=== PATIENT | male | born 1950 | race Caucasian/White ===

== ENCOUNTER 2025-06-14 12:24 | Outpatient (CLI) | payer MEDICARE, SELFPAY ==
[2025-06-14 12:55] LABS: Hematocrit 29.7 % (37-53); Hemoglobin 9.40 g/dL (11.27-16.99); Mean Corpuscular HGB Conc 31.6 g/dL (30-55); Mean Corpuscular Hemoglobin 32.1 pg (27-33); Mean Corpuscular Volume 101.4 fl (82-101); Platelet Count 312 10^3/cmm (157-399); Red Blood Count 2.93 10^6/uL (3.85-5.65); White Blood Count 13.61 10^3/uL (3.29-11.43)
[2025-06-14 13:16] LABS: Alanine Aminotransferase 27 U/L (0-41); Albumin Level 3.6 g/dL (3.5-5.2); Alkaline Phosphatase 131 U/L (40-130); Anion Gap 12.3 (5-19); Aspartate Amino Transferase 21 U/L (0-40); Blood Urea Nitrogen 18 mg/dL (8-23); Calcium 8.6 mg/dL (8.5-10.5); Carbon Dioxide 34 mmol/L (22-29); Chloride 97 mmol/L (98-107); Globulin 2.6 g/dL (1.3-4.6); Glucose 100 mg/dL (65-115); Magnesium 1.9 mg/dL (1.7-2.3); Osmolality Calculated 290 mOsm/kg (285-295); Potassium 4.3 mmol/L (3.5-5.1); Sodium 139 mmol/L (136-145); Total Protein 6.2 g/dL (6.6-8.7)
[2025-06-14 13:50] LABS: Absolute Segmented Neutrophil 12.2 10/cmm (1.6-7.1); Total Cells Counted 100 (0-100)
[2025-06-14 13:51] LABS: Atypical Lymphs 0.0 % (0-5); Band Neutrophils Absolute 0.0 10^3/cmm (0.0-1.2)
[2025-06-14 13:52] LABS: Anisocytosis Trace
== END 2025-06-14 12:25 | disposition home or self-care (01) ==
DX: C34.90 Malignant neoplasm of unspecified part of unspecified bronchus or lung (principal); C34.80 Malignant neoplasm of overlapping sites of unspecified bronchus and lung; I63.30 Cerebral infarction due to thrombosis of unspecified cerebral artery; C78.7 Secondary malignant neoplasm of liver and intrahepatic bile duct
CPT/HCPCS: 80053; 83735; 85007; 85027

== ENCOUNTER 2025-07-17 12:42 | Inpatient (IN) | payer OTHER, SELFPAY ==
[2025-07-17] VITALS (28 sets, daily range): BP systolic 91–159; BP diastolic 53–94; PULSE 81–138; RESP 15–34; TEMP 36.7; O2SAT 79–100; BMI 17.2; BMI 17.4
--- NOTE | 2025-07-17 12:49 | XRR_ITS ---
PROCEDURE INFORMATION: Exam: XR Chest Exam date and time: 07/17/2025 1:11 PM Age: 75 years old Clinical indication: Dyspnea; Additional info: Dyspnea; Cough TECHNIQUE: Imaging protocol: Radiologic exam of the chest. Views: 1 view. COMPARISON: No relevant prior studies available. FINDINGS: Lungs: Prominence of the left hilum. Pleural spaces: Unremarkable. No pleural effusion. No pneumothorax. Heart/Mediastinum: Unremarkable. No cardiomegaly. Bones/joints: Unremarkable. XR/XR chest 1V portable [id number] IMPRESSION: Left hilar prominence could represent lymphadenopathy, infection, or possibly neoplasm. Recommend CT for further evaluation.
--- OUTSIDE RECORDS SUMMARY | 2025-07-17 12:49 | XMS_ITS | Clinical Summary ---
Author Organization [facility] Address [address] [facility] [place] [address] Care Team Providers Care Woven Paper Hat Mender Name Role Phone Virgil Beaulieu MD Primary Care Provider [phone] Allergies Active Allergy Reactions Criticality Noted Date Comments Budesonide Other (See Comments) 04/05/2025 flush Medications HYDROcodone-acet aminophen (NORCO) 5-325 mg tablet Take 1 Tablet by mouth every 4 hours as needed for Pain, Moderate. Active ipratropium-albu teroL (DUONEB) 0.5 mg-3 mg(2.5 mg base)/3 mL Solution for Nebulization Take 3 mL by inhalation every 6 hours as needed for Shortness of Breath or Wheezing. 30 Each 2 05/13/2025 1:34 PM CDT 5 Active ALPRAZolam (XANAX) 0.5 mg tabletIndication s:Acute on chronic respiratory failure with hypoxia (CMS/HCC),Cancer , metastatic to liver,Anxiety state Take 1 Tablet (0.5 mg) by mouth 4 times daily as needed for Anxiety. 20 Tablet 05/13/2025 1:34 PM CDT 5 Active atorvastatin (LIPITOR) 20 mg tablet Take 1 Tablet (20 mg) by mouth daily at bedtime. 30 Tablet 1 05/13/2025 1:34 PM CDT 5 Active clopidogreL (PLAVIX) 75 mg Tablet Take 1 Tablet (75 mg) by mouth daily. 30 Tablet 1 5 Active furosemide (LASIX) 40 mg tablet Take 1 Tablet (40 mg) by mouth daily. 30 Tablet 05/13/2025 1:34 PM CDT 5 Active guaiFENesin (Mucinex) 600 mg Extended Release Biphasic tablet Take 2 Tablets (1,200 mg) by mouth 2 times daily as needed for cough/congestio n. 30 Tablet 1 05/13/2025 1:34 PM CDT 5 Active tamsulosin (FLOMAX) 0.4 mg capsule Take 1 Capsule (0.4 mg) by mouth daily. 30 Capsule 1 5 Active losartan (COZAAR) 25 mg tablet Take 1 Tablet (25 mg) by mouth daily. 15 Tablet 05/13/2025 1:34 PM CDT 5 Active predniSONE (DELTASONE) 20 mg tablet Starting on 05/14/25, Take 2 Tablets (40 mg) by mouth daily with breakfast. 4 Tablet 05/13/2025 1:34 PM CDT 5 Active naloxone (NARCAN) 4 mg/spray Colony, Non-Aerosol EMERGENCY USE ONLY: Administer 1 spray (4 mg) in one nostril one time. May repeat in alternating nostrils every 2-3 min until responsive or EMS arrives. 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 lung Cancer, metastatic to liver 04/05/2025 Mixed simple and mucopurulent chronic bronchitis 04/05/2025 Abnormal weight loss 04/05/2025 Tobacco abuse 04/05/2025 Shortness of breath 04/05/2025 Other senior care (current) drug therapy Panlobular emphysema 11/18/2018 Encounters Date Type Department Care Team Description 06/15/2025 External Device Data [facility] Provider, Abstract 05/18/2025 External Device Data [facility] Provider, Abstract 05/18/2025 External Device Data [facility] Provider, Abstract 05/12/2025 External Device Data [facility] Provider, Abstract 05/11/2025 7:50 AM CDT - 05/13/2025 3:13 PM CDT Hospital Encounter [facility] [address] [place] [address] Vivi Valentine MD Ahmad, MD Verito Barajas Hamza, MD COPD with exacerbation (CMS/HCC) Discharge Disposition: Home or Self Care 05/11/2025 Travel 04/27/2025 External Device Data [facility]STRACTION Provider, Abstract from Last 3 Months Family History Medical History Relation Name Comments Cancer Father Breast Cancer Mother Stomach Cancer Son Relation Name Status Comments Father Mother Son Social History Tobacco Use Types Packs/Day Years Used Date Smoking Tobacco: Former Cigarettes 1 60.4 S tarted: 1965 Smokeless Tobacco: Never Tobacco Cessation:Counseling Given: Not Answered Alcohol Use Standard Drinks/Week Comments Yes 0 (1 standard drink = 0.6 oz pur e alcohol) rare occasion Feeling Safe Answer Date Recorded Are you in a relationship wi th someone who hurts you emotionally and/or physically? No 05/11/2025 Food Insecurity Answer Date Recorded Patient needs follow up regardin 05/11/2025 Transportation Needs Answer Date Record ed Patient needs follow up regardin 05/11/2025 Utility Needs Answer Date Recorded Patient needs follow up regardin 05/11/2025 Sex and Gender Information Value Date Recorded Sex Assigned at Not on file Legal Sex Male 9:43 AM CDT Gender Identity Not on file Sexual Orientation Not on file Last Filed Vital Signs Vital Sign Reading Time Taken Comments Blood Pressure 185/75 05/13/2025 8:08 AM CDT Pulse 100 05/13/2025 8:53 AM CDT Temperature 36.3 C (97.3 F) 05/13/2025 5:08 AM CDT Respiratory Rate 22 05/13/2025 8:53 AM CDT Oxygen Saturation 99% 05/13/2025 8:08 AM CDT Inhaled Oxygen Concentration - - Weight 57.2 kg (126 lb 1.6 oz) 05/12/2025 3:11 A M CDT Height 182.9 cm (6') 05/11/2025 7:55 AM CDT Body Mass Index 17.1 05/11/2025 7:55 AM CDT Plan of Treatment Health Maintenance Due Date Last Done Comments DTAP/TDAP/TD VACCINES (1 - Tdap) 01/13/1967 ZOSTER VACCINE (1 of 2) 01/13/1967 RSV VACCINE (60+ or ) (1 - 1-dose 75+ series) 01/13/2023 INFLUENZA VACCINE (#1) 2025 10/02/2022, 2019 PNEUMOCOCCAL VACCINE 50+ YEARS Completed 10/02/2022 , 11/18/2018 Procedures Procedure Name Priority Date/Time Associated Diagnosis Comments TELEMETRY REPORT 05/20/2025 11:2 1 AM CDT TELEMETRY REPORT 05/20/2025 11:0 1 AM CDT TELEMETRY REPORT 05/20/2025 10:4 8 AM CDT BASIC METABOLIC PANEL Routine 05/13/2025 4:48 AM CDT CBC WITH DIFFERENTIAL Routine 05/13/2025 4:48 AM CDT MRSA PCR RAPID SCREEN Routine 05/12/2025 4:12 AM CDT BASIC METABOLIC PANEL Routine 05/12/2025 2:53 AM CDT CBC WITH DIFFERENTIAL Routine 05/12/2025 2:53 AM CDT EXTRA TUBE (URINE CONTAINER) Routine 05/11/2025 5:01 PM CDT EXTRA TUBE Routine 05/11/2025 5:01 PM CDT RT ASSESS AND TREAT Routine 05/11/2025 4 :40 PM CDT TROPONIN 6 HR, 5TH GEN Timed Study 05/11/2025 4:31 PM CDT EXTRA TUBE (URINE PAIZ) Stat 05/11/2025 3:55 PM CDT URINALYSIS W/REFLEX MICROSCOPIC Stat 05/11/2025 3:55 PM CDT RT ASSESS AND TREAT Stat 05/11/2025 1 :15 PM CDT COPD EDUCATION RT Stat 05/11/2025 1:1 5 PM CDT LACTIC ACID Stat 05/11/2025 11:59 AM CDT BLOOD CULTURE Stat 05/11/2025 11:59 AM CDT BLOOD CULTURE Stat 05/11/2025 11:59 AM CDT BLOOD CULTURE Stat 05/11/2025 11:59 AM CDT BLOOD CULTURE Stat 05/11/2025 11:59 AM CDT MAGNESIUM LEVEL Stat 05/11/2025 10:15 AM CDT TROPONIN 2 HR, 5TH GEN Timed Study 05/11/2025 10:15 AM CDT CTA CHEST W AND/OR WO CONTRAST Stat 05/11/2025 10:13 AM CDT XR CHEST PA OR AP 1 VW Stat 05/11/2025 9:25 AM CDT BLOOD GAS VENOUS Stat 05/11/2025 9:19 AM CDT RESPIRATORY PATHOGEN PCR PANEL Stat 05/11/2025 8:49 AM CDT TSH REFLEXIVE Stat 05/11/2025 8:46 AM CDT TROPONIN BASELINE, 5TH GEN Stat 05/11/2025 8:46 AM CDT BRAIN NATRIURETIC PEPTIDE, BNP OR PROBNP Stat 05/11/2025 8:46 AM CDT COMPREHENSIVE METABOLIC PANEL Stat 05/11/2025 8:46 AM CDT CBC WITH DIFFERENTIAL Stat 05/11/2025 8:46 AM CDT EKG 12-LEAD Stat 05/11/2025 8:11 AM CDT CRITICAL CARE Routine 05/11/2025 7:50 AM CDT from Last 3 Months Results * TELEMETRY REPORT (05/20/2025 11:21 AM CDT) Only the most recent of3 resultswithin the time period is included. us Provider Scanning ECG ORDERABLES Final Result * (ABNORMAL) CBC WITH DIFFERENTIAL (05/13/2025 4:48 AM CDT) Only the most recent of3 resultswithin the time period is included. WBC 12.3(H) 4.0 - 9.8 K/uL 05/13/2025 4:55 AM CDT [facility] RBC 2.25(L) 4.50 - 5.40 M/uL 05/13/2025 4:55 AM CDT [facility] HEMOGLOBIN 7.1(L) 13.6 - 16.5 g/dL 05/13/2025 4:55 AM CDT [facility] HEMATOCRIT 22.1(L) 40.0 - 48.0 % 05/13/2025 4:55 AM CDT [facility] MCV 98.2 82.0 - 99.0 fL 05/13/2025 4:55 AM CDT [facility] MCH 31.6 27.2 - 32.6 pg 05/13/2025 4:55 AM CDT [facility] MCHC 32.1 31.5 - 35.5 g/dL 05/13/2025 4:55 AM CDT [facility] RDW 16.5(H) 11.5 - 14.5 % 05/13/2025 4:55 AM CDT [facility] RDW-STDEV 55.7(H) 37.1 - 48.7 fL 05/13/2025 4:55 AM CDT [facility] PLATELETS 897(H) 140 - 350 K/uL 05/13/2025 4:55 AM T [facility] MPV 8.6(L) 9.3 - 12.4 fL 05/13/2025 4:55 AM CDT [facility] NEUTROPHILS 76 % 05/13/2025 4:55 AM CDT [facility] LYMPHOCYTES 10 % 05/13/2025 4:55 AM CDT [facility] MONOCYTES 13 % 05/13/2025 4:55 AM CDT [facility] EOSINOPHILS 0 % 05/13/2025 4:55 AM CDT [facility] BASOPHILS 0 % 05/13/2025 4:55 AM CDT [facility] IMMATURE GRANULOCYTES 1 % 05/13/2025 4:55 AM T [facility] Comment:IG (Immature Granulo cyte) count includes Metamyelocytes, Myelocytes, and Promyelocytes NEUTROPHIL ABSOLUTE 9.38(H) 1.90 - 7.00 K/uL 05/13/2025 4:55 AM [facility] LYMPHOCYTE ABSOLUTE 1.27 0.70 - 4.50 K/uL 05/13/2025 4:55 AM [facility] MONOCYTE ABSOLUTE 1.54(H) 0.10 - 1.30 K/uL 05/13/2025 4:55 AM T [facility] EOSINOPHIL ABSOLUTE 0.00 0.00 - 0.70 K/uL 05/13/2025 4:55 AM CDT [facility] BASOPHILS ABSOLUTE 0.04 0.00 - 0.20 K/uL 05/13/2025 4:55 AM [facility] IMMATURE GRANULOCYTES ABSOLUTE 0.11(H) 0.00 - 0.03 K/uL 05/13/2025 4:55 AM [facility] Blood Venipuncture / Unknown 05/13/2025 4:48 AM CDT 05/13/2025 4:48 AM CDT us Tereso HARPER HEMATOLOGY ORDERABLES Final Re sult [facility] CLIA# [id number] [place] [address] * (ABNORMAL) BASIC METABOLIC PANEL (05/13/2025 4:48 AM CDT) Only the most recent of2 resultswithin the time period is included. SODIUM 140 136 - 145 mmol/L 05/13/2025 5:24 AM CDT [facility] POTASSIUM 3.8 3.4 - 5.1 mmol/L 05/13/2025 5:24 AM CDT [facility] CHLORIDE 100 98 - 107 mmol/L 05/13/2025 5:24 AM CDT [facility] CO2 32(H) 22 - 29 mmol/L 05/13/2025 5:24 AM T [facility] CALCIUM 8.2(L) 8.6 - 10.4 mg/dL 05/13/2025 5:24 AM T [facility] BUN 25(H) 6 - 20 mg/dL 05/13/2025 5:24 AM T [facility] CREATININE 0.56(L) 0.67 - 1.17 mg/dL 05/13/2025 5:24 AM T [facility] Comment:The GFR result is no t clinically significant on patients <18 or >70 years of age. GLUCOSE 98 74 - 99 mg/dL 05/13/2025 5:24 AM T [facility] GFR >60 mL/min/1.7 3 sq meter 05/13/2025 5:24 AM T [facility] Comment:eGFR calculated with 2020 CKD-EPI equation. Vegetarian diet, extremely high or low muscle mass, and may affect results. Cystatin C with Glomerular Filtration Rate is a suitable alternative for these patients. ANION GAP 8 8 - 16 mmol/L 05/13/2025 5:24 AM CDT [facility] Blood Venipuncture / Unknown 05/13/2025 4:48 AM CDT 05/13/2025 4:48 AM CDT Tereso HARPER CHEMISTRY ORDERABLES Final Res ult Performing Organization Address [facility] Co de Phone Number [facility]# [id number] [place] [address] * MRSA PCR RAPID SCREEN (05/12/2025 4:12 AM CDT) [facility] MRSA PCR RESULT MRSA not detected MRSA not detected 05/12/2025 6:15 AM CDT [facility] Surveillance ANTERIOR NARES SWAB / Unknown Collection / Unknown 05/12/2025 4:12 AM CDT 05/12/2025 4:17 AM CDT Narrative [facility] - 05/12/2025 6:15 AM CDT This assay is used to detect Methicillin-Resistant S. aureus (MRSA) colonization of the nares. PLEASE NOTE: This test has not been approved to monitor effectiveness of MRSA decolonization. Residual DNA may temporarily be present after successful decolonization. This test was performed using an FDA approved screening methodology. Tereso HARPER MICROBIOLOGY - GENERAL ORDERAB LES Final Result Performing Organization Address [facility] Co de Phone Number [facility]# [id number] [place] [address] * EXTRA TUBE (URINE CONTAINER) (05/11/2025 5:01 PM CDT) Urine URINE SPECIMEN OBTAINED BY CLEAN CATCH PROCEDURE / Unknown Collection / Unknown 05/11/2025 5:01 PM CDT 05/11/2025 5:01 PM CDT Rianna Sellers MD URINE ORDERABLES Final Result Performing Organization Address [facility]/ZIP Co de Phone Number [facility]# [id number] [place] [address] * (ABNORMAL) TROPONIN 6 HR, 5TH GEN (05/11/2025 4:31 PM CDT) TROPONIN T, 6 HR 5TH GEN 19(H) <=15 ng/L 05/11/2025 5:07 PM CDT [facility] DELTA 6HR TROPONIN T -4 See Interp. 05/11/2025 5:07 PM CDT [facility] Blood Venipuncture / Unknown 05/11/2025 4:31 PM CDT 05/11/2025 4:39 PM CDT Narrative [facility] - 05/11/2025 5:07 PM CDT Troponin elevated. Delta indeterminate. Delay in collection of timed specimen beyond recommended collection interval. Results must be interpreted in clinical context. Vivi Valentine MD CHEMISTRY ORDERABLES Final R esult Performing Organization Address [facility]/ZIP Co de Phone Number [facility]# [id number] [place] [address] * EXTRA TUBE (URINE PAIZ) (05/11/2025 3:55 PM CDT) Urine (Urine, indwelling (Cuadra) catheter) Collection / Unknown 05/11/2025 3:55 PM CDT 05/11/2025 4:18 PM CDT Vivi Valentine MD URINE ORDERABLES Final Resul t Performing Organization Address City/[facility]/ZIP Co de Phone Number [facility]# [id number] [place] [address] * (ABNORMAL) URINALYSIS WITH REFLEX MICROSCOPIC (05/11/2025 3:55 PM CDT) COLOR UA Yellow Pale to Dark Yellow 05/11/2025 4:53 PM CDT [facility] CLARITY UA Clear Clear 05/11/2025 4:53 PM CDT [facility] SPECIFIC GRAVITY UA 1.023 1.003 - 1.035 05/11/2025 4:53 PM CDT [facility] PH UA 7.0 5.0 - 8.0 05/11/2025 4:53 PM CDT [facility] LEUKOCYTE ESTERASE UA Negative Negative 05/11/2025 4:53 PM CDT [facility] NITRITE UA Negative Negative 05/11/2025 4:53 PM CDT [facility] PROTEIN UA Negative Negative 05/11/2025 4:53 PM CDT [facility] GLUCOSE UA Negative Negative 05/11/2025 4:53 PM CDT [facility] KETONES UA 1+(A) Negative 05/11/2025 4:53 PM CDT [facility] UROBILINOGEN UA Normal <2.0 mg/dL 4:53 PM CDT [facility] BILIRUBIN UA Negative Negative 05/11/2025 4:53 PM CDT [facility] BLOOD UA 2+(A) Negative 05/11/2025 4:53 PM CDT [facility] WBC UA 6-10(A) 0 - 2 /hpf 05/11/2025 4:53 PM CDT [facility] RBC UA 51-100(A) 0 - 2 /hpf 05/11/2025 4:53 PM CDT [facility] BACTERIA UA Negative Negative /hpf 05/11/2025 4:53 PM CDT [facility] EPITHELIAL CELLS, URINE 0-5 0 - 5 /hpf 05/11/2025 4:53 PM CDT [facility] HYALINE CAST None Seen None Seen, 0-2 /lpf 05/11/2025 4:53 PM CDT [facility] Ascorbic Acid UA Positive(A) Negative 025 4:53 PM CDT [facility] Urine (Urine, indwelling (Cuadra) catheter) Collection / Unknown 05/11/2025 3:55 PM CDT 05/11/2025 4:18 PM CDT us Vivi Valentine MD URINE ORDERABLES Final Resul t [facility] CLIA# [id number] [place] [address] * LACTIC ACID (05/11/2025 11:59 AM CDT) LACTIC ACID 1.0 <=2.0 mmol/L 05/11/2025 12:52 PM CDT [facility] Blood Venipuncture / Unknown 05/11/2025 11:59 AM CDT 05/11/2025 12:19 PM CDT Vivi Valentine MD CHEMISTRY ORDERABLES Final R esult Performing Organization Address City/[facility]/ZIP Co de Phone Number [facility] CLIA# [id number] [place] [address] * BLOOD CULTURE (05/11/2025 11:59 AM CDT) Only the most recent of2 resultswithin the time period is included. BLOOD CULTURE No growth 05/16/2025 2:46 PM CDT [facility] Blood (Peripheral) Venipuncture / Unknown 05/11/2025 11:59 AM CDT 05/11/2025 12:15 PM CDT us Vivi Valentine MD MICROBIOLOGY - GENERAL ORDER ELLA Final Result Performing Organization Address City/[facility]/ZIP Co de Phone Number [facility] CLIA# [id number] [address] [place] [address] * (ABNORMAL) TROPONIN 2 HR, 5TH GEN (05/11/2025 10:15 AM CDT) TROPONIN T, 2 HR 5TH GEN 20(H) <=15 ng/L 05/11/2025 10:47 AM CDT [facility] DELTA 2HR TROPONIN T -3 See Interp. 05/11/2025 10:47 AM CDT [facility] Blood Venipuncture / Unknown 05/11/2025 10:15 AM CDT 05/11/2025 10:21 AM CDT Narrative [facility] - 05/11/2025 10:47 AM CDT Troponin elevated. Delta not changing. Vivi Valentine MD CHEMISTRY ORDERABLES Final R esult Performing Organization Address City/[facility]/ZIP Co de Phone Number [facility] CLIA# [id number] [place] [address] * MAGNESIUM LEVEL (05/11/2025 10:15 AM CDT) Pathologist [facility] MAGNESIUM 1.9 1.6 - 2.6 mg/dL 05/11/2025 1:31 PM CDT [facility] Blood Venipuncture / Unknown 05/11/2025 10:15 AM CDT 05/11/2025 10:21 AM CDT Tereso HARPER CHEMISTRY ORDERABLES Final Res ult [facility] CLIA# [id number] [place] [address] * CTA CHEST W AND/OR WO CONTRAST (05/11/2025 10:13 AM CDT) Anatomical Region Laterality Modality Chest Computed Tomogra phy 05/11/2025 10:0 5 AM CDT Impressions 05/11/2025 1:53 PM CDT IMPRESSION: Severe centrilobular emphysema. Left hilar mass and mediastinal lymphadenopathy. Peripheral infiltrates in the lingula and left upper lobe. Biapical lung nodules. Trace right pleural effusion and pericardial effusion. Liver metastasis. Probable right adrenal metastasis versus adenoma. Negative for pulmonary embolus. Aortic and great vessel calcification. Nephrolithiasis. The examination was performed with the adjustment of mA according to the patient size and/or the use of Iterative Reconstruction Technique. DICTATION LOCATION: Location [address] [place] [address] 05/11/2025 1:53 PM CDT CTA CHEST WITH AND WITHOUT IV CONTRAST WITH RECONSTRUCTIONS DATE: 05/11/2025 10:13 AM HISTORY: sob, cancer See Reason for Exam COMPARISON: May 11, 2025 FINDINGS: Computed tomographic angiography of the chest is performed using post contrast 2.5 mm axial collimation. 80 cc of Isovue-370. 3D MIP reconstructed images were obtained. There is vertebral artery, aortic and great vessel calcification. There is a 4.8 cm left hilar mass. Aorticopulmonary window lymphadenopathy is present. There is a trace right pleural effusion. No pulmonary embolus is seen. The ascending aorta is ectatic to 4 cm. Lung windows show centrilobular emphysema. There is a left upper lobe 3.2 cm nodule. Lingular infiltrate or atelectasis is present. There is a right apical 9 mm pulmonary nodule. A left upper lobe 7 mm nodule is present on image 31 The upper abdomen shows multiple liver metastasis. A right adrenal metastasis is also suspected. There is abdominal aortic mesenteric and renal vascular calcification. There is nephrolithiasis. Spondylosis is present. No fracture seen. INCIDENTAL FINDINGS: None. Procedure Note Keaton Mo MD - 05/11/2025 CTA CHEST WITH AND WITHOUT IV CONTRAST WITH RECONSTRUCTIONS DATE: 05/11/2025 10:13 AM HISTORY: sob, cancer See Reason for Exam COMPARISON: May 11, 2025 FINDINGS: Computed tomographic angiography of the chest is performed using post contrast 2.5 mm axial collimation. 80 cc of Isovue-370. 3D MIP reconstructed images were obtained. There is vertebral artery, aortic and great vessel calcification. There is a 4.8 cm left hilar mass. Aorticopulmonary window lymphadenopathy is present. There is a trace right pleural effusion. No pulmonary embolus is seen. The ascending aorta is ectatic to 4 cm. Lung windows show centrilobular emphysema. There is a left upper lobe 3.2 cm nodule. Lingular infiltrate or atelectasis is present. There is a right apical 9 mm pulmonary nodule. A left upper lobe 7 mm nodule is present on image 31 The upper abdomen shows multiple liver metastasis. A right adrenal metastasis is also suspected. There is abdominal aortic mesenteric and renal vascular calcification. There is nephrolithiasis. Spondylosis is present. No fracture seen. INCIDENTAL FINDINGS: None. IMPRESSION: Severe centrilobular emphysema. Left hilar mass and mediastinal lymphadenopathy. Peripheral infiltrates in the lingula and left upper lobe. Biapical lung nodules. Trace right pleural effusion and pericardial effusion. Liver metastasis. Probable right adrenal metastasis versus adenoma. Negative for pulmonary embolus. Aortic and great vessel calcification. Nephrolithiasis. The examination was performed with the adjustment of mA according to the patient size and/or the use of Iterative Reconstruction Technique. DICTATION LOCATION: [address] us Vivi Valentine MD CT ORDERABLES Final Result * XR CHEST PA OR AP 1 VW (05/11/2025 9:25 AM CDT) Anatomical Region Laterality Modality Chest Computed Radiogr aphy 05/11/2025 9:26 AM CDT Impressions 05/11/2025 9:29 AM CDT IMPRESSION: 1. No acute pulmonary abnormality DICTATION LOCATION: [address] Narrative 05/11/2025 9:29 AM CDT XR CHEST PA OR AP 1 VW DATE: 05/11/2025 9:25 AM HISTORY: Shortness of breath.. FINDINGS: The heart size is normal. The lungs are clear. No pleural effusion or pneumothorax present. The osseous structures are normal. Procedure Note Osei Ascencio MD - 05/11/2025 XR CHEST PA OR AP 1 VW DATE: 05/11/2025 9:25 AM HISTORY: Shortness of breath.. FINDINGS: The heart size is normal. The lungs are clear. No pleural effusion or pneumothorax present. The osseous structures are normal. IMPRESSION: 1. No acute pulmonary abnormality DICTATION LOCATION: [address] Vivi Valentine MD DIAGNOSTIC IMAGING ORDERABLE S Final Result * (ABNORMAL) BLOOD GAS VENOUS (05/11/2025 9:19 AM CDT) [facility] PH BLOOD POC 7.44(H) 7.32 - 7.43 05/11/2025 9:19 AM CDT [facility] PCO2 POC 61(H) 38 - 50 mm Hg 05/11/2025 9:19 AM CDT [facility] PO2 POC 36 28 - 40 mm Hg 05/11/2025 9:19 AM CDT [facility] HCO3 (CALC) POC 41(H) 22 - 29 mmol/L 05/11/2025 9:19 AM CDT [facility] BASE EXCESS POC 14 No Reference Range Established mmol/L 05/11/2025 9:19 AM CDT [facility] O2 SATURATION POC 60 40 - 70 % 05/11/2025 9:19 AM CDT [facility] PH TEMP CORRECT 7.44(H) 7.32 - 7.43 05/11/2025 9:19 AM CDT [facility] PCO2 TEMP CORRECT 61(H) 38 - 50 mm Hg 05/11/2025 9:19 AM CDT [facility] PO2 TEMP CORRECT 36 25 - 40 mm Hg 05/11/2025 9:19 AM CDT [facility] SPECIMEN SOURCE, GASES POC Venous 05/11/2025 9:19 AM T [facility] Blood, venous 05/11/2025 9:1 9 AM CDT 05/11/2025 9:23 AM CDT Vivi Valentine MD ABG ORDERABLES Final Result [facility] CLIA# [id number] [place] [address] * RESPIRATORY PATHOGEN PCR PANEL (05/11/2025 8:49 AM CDT) Pathologist [facility] Respiratory Pathogen PCR Panel NOT DETECTED No respiratory pathogen nucleic acids detected. 05/11/2025 11:33 AM CDT [facility] COVID-19 PCR NOT DETECTED Not Detected 05/11/2025 11:33 AM CDT [facility] Upper Respiratory ENTIRE NASOPHARYNX / Unknown Collection / Unknown 05/11/2025 8:49 AM CDT 05/11/2025 8:52 AM CDT [facility] - 05/11/2025 11:33 AM CDT The Film Array Respiratory Panel (RP2.1) is a multiplex nucleic acid detection test for 22 targets. Viruses: Adenovirus Coronavirus HKU1, NL63, 229E, and OC43 COVID-19/Severe Acute Respiratory Syndrome Coronavirus 2 Influenza A with the following subtypes: H1, H1-2009, and H3 Influenza B Human Metapneumovirus Parainfluenza virus 1, 2, 3, and 4 Respiratory Syncytial virus (RSV) Rhinovirus/Enterovirus (cannot differentiate due to genetic similarities) Bacteria: Bordetella pertussis Bordetella parapertussis Chlamydophila pneumoniae Mycoplasma pneumoniae Vivi Valentine MD MICROBIOLOGY - GENERAL ORDER ELLA Final Result [facility] [id number] [place] [address] * (ABNORMAL) TROPONIN BASELINE, 5TH GEN (05/11/2025 8:46 AM CDT) [facility] TROPONIN T, BASELINE 5TH GEN 23(H) <=15 ng/L 05/11/2025 9:33 AM CDT [facility] Blood Venipuncture / Unknown 05/11/2025 8:46 AM CDT 05/11/2025 8:53 AM CDT [facility] - 05/11/2025 9:33 AM CDT Troponin elevated. Vivi Valentine MD CHEMISTRY ORDERABLES Final R esult Performing Organization Address City/[facility]/ZIP Co de Phone Number [facility] [employer] [facility] CLIA# [id number] [address] [place] [address] * TSH REFLEXIVE (05/11/2025 8:46 AM CDT) TSH 1.00 0.27 - 4.20 uIU/mL 05/11/2025 9:33 AM CDT [facility] [employer] [facility] Blood Venipuncture / Unknown 05/11/2025 8:46 AM CDT 05/11/2025 8:53 AM CDT Vivi Valentine MD CHEMISTRY ORDERABLES Final R esult Performing Organization Address [facility] Co de Phone Number [facility] [employer] [facility] CLIA# [id number] [place] [address] * BRAIN NATRIURETIC PEPTIDE, BNP OR PROBNP (05/11/2025 8:46 AM CDT) PROBNP, N TERMINAL 667 0 - 1,800 pg/mL 05/11/2025 9:42 AM CDT [facility] [employer] [facility] Comment: INTERPRETIVE COMMENT based on diagnosis: Diagnostic NT pro-BNP cutoffs for Heart Failure in the absence of renal failure is suggested for the following ranges <75 years: <125 pg/mL >=75 years: <450 pg/mL Exclusionary rule out cut-point for Acute Decompensated Heart Failure(ADHF) All ages: <300 pg/mL Diagnostic NT pro-BNP cutoffs for Acute Decompensated Heart Failure(ADHF) in the absence of renal failure is suggested for the following ages <50 years: > 450 pg/mL 50-75 years: > 900 pg/mL >75 years: >1800 pg/mL Blood Venipuncture / Unknown 05/11/2025 8:46 AM CDT 05/11/2025 8:53 AM CDT Viiv Valentine MD CHEMISTRY ORDERABLES Final R esult [facility] CLIA# [id number] [address] [place] [address] * (ABNORMAL) COMPREHENSIVE METABOLIC PANEL (05/11/2025 8:46 AM CDT) SODIUM 140 136 - 145 mmol/L 05/11/2025 9:42 AM CDT [facility] POTASSIUM 4.1 3.4 - 5.1 mmol/L 05/11/2025 9:42 AM CDT [facility] CHLORIDE 98 98 - 107 mmol/L 05/11/2025 9:42 AM CDT [facility] CO2 33(H) 22 - 29 mmol/L 05/11/2025 9:42 AM CDT [facility] CALCIUM 9.3 8.6 - 10.4 mg/dL 05/11/2025 9:42 AM CDT [facility] BUN 20 6 - 20 mg/dL 05/11/2025 9:42 AM CDT [facility] CREATININE 0.56(L) 0.67 - 1.17 mg/dL 05/11/2025 9:42 AM T [facility] Comment:The GFR result is no t clinically significant on patients <18 or >70 years of age. GLUCOSE 102(H) 74 - 99 mg/dL 05/11/2025 9:42 AM CDT [facility] TOTAL PROTEIN 6.5 6.3 - 8.7 g/dL 05/11/2025 9:42 AM CDT [facility] ALBUMIN 3.5 3.5 - 5.2 g/dL 05/11/2025 9:42 AM CDT [facility] BILIRUBIN TOTAL <0.2 0.0 - 1.1 mg/dL 05/11/2025 9:42 AM T [facility] ALKALINE PHOSPHATASE 128 40 - 150 U/L 05/11/2025 9:42 AM CDT [facility] AST 36 0 - 41 U/L 05/11/2025 9:42 AM CDT [facility] ALT 40 0 - 41 U/L 05/11/2025 9:42 AM CDT [facility] GFR >60 mL/min/1.7 3 sq meter 05/11/2025 9:42 AM CDT [facility] Comment:eGFR calculated with 2020 CKD-EPI equation. Vegetarian diet, extremely high or low muscle mass, and may affect results. Cystatin C with Glomerular Filtration Rate is a suitable alternative for these patients. ANION GAP 9 8 - 16 mmol/L 05/11/2025 9:42 AM CDT [facility] Blood Venipuncture / Unknown 05/11/2025 8:46 AM CDT 05/11/2025 8:53 AM CDT Vivi Valentine MD CHEMISTRY ORDERABLES Final R esult [facility] CLIA# [id number] [address] [place] [address] * EKG 12-LEAD (05/11/2025 8:11 AM CDT) 05/11/2025 8:11 AM CDT Narrative INTERFACE SYSTEM - 05/11/2025 12:44 [place] [address] Test Date: 2025-05-11 Pat Name: SIM MAYER Department: 94 Room: [address] [place] [address] Gender: Male Manager Proposal: STERLING : 1950 Requested By: Order Number: [id number] Reading MD: Kamla Garcia Measurements Intervals [place] Rate: 87 P: 82 MN: 122 QRS: 71 QRSD: 88 T: 76 QT: 358 QTc: 430 Interpretive Statements Sinus rhythm with occasional premature ventricular complexes Right atrial enlargement Borderline ECG No previous ECG available for comparison Electronically Signed On 05-11-2025 12:44:56 CDT by Kamla Garcia Procedure Note Kamla Garcia MD - 05/11/2025 [facility] [place] [address] [place] [address] Test Date: 2025-05-11 Pat Name: SIM MAYER Department: 94 Room: [address] [place] [address] Gender: Male Manager Proposal: STERLING : 1950 Requested By: Order Number: [id number] Reading MD: Kamla Garcia Measurements Intervals [place] Rate: 87 P: 82 MN: 122 QRS: 71 QRSD: 88 T: 76 QT: 358 QTc: 430 Interpretive Statements Sinus rhythm with occasional premature ventricular complexes Right atrial enlargement Borderline ECG No previous ECG available for comparison Electronically Signed On 05-11-2025 12:44:56 CDT by Kamla Garcia us Vivi Valentine MD ECG ORDERABLES Final Result Performing Organization Address City/State/[facility] Co de Phone Number INTERFACE SYSTEM Refer to clinic/hospital department * Critical Care (05/11/2025 7:50 AM CDT) Narrative Vivi Valentine MD - 05/11/2025 7:50 AM CDT Vivi Valentine MD 05/12/2025 9:44 AM Critical Care Performed by: Vivi Valentine MD Authorized by: Vivi Valentine MD Critical care provider statement: Critical care time (minutes): 35 Critical care was necessary to treat or prevent imminent or life-threatening deterioration of the following conditions: Sepsis and respiratory failure Critical care was time spent personally by me on the following activities: Development of treatment plan with patient or surrogate, evaluation of patient's response to treatment, examination of patient, obtaining history from patient or surrogate, pulse oximetry, re-evaluation of patient's condition, ordering and review of radiographic studies, ordering and review of laboratory studies, ordering and performing treatments and interventions and review of old charts us Vivi Valentine MD PROCEDURE/MINOR SURGICAL ORD ERABLES Final Result from Last 3 Months Insurance [facility] [id number] RX [employer] RX Member Subscriber Plan / Payer (Ef fective 2022-Present) Name:Sim Mayer Relation to Subscriber:Self Name:Sim Mayer Payer ID:Not on file Group ID:[id number] Type:RX Medicare Part D Address: [address] RX [employer]UR PLANS (INTERNAL) [facility] RX [facility] [place] [employer] [employer] Advance Directives For more information, please contact: [phone] * NO CPR (In Event of Cardiopulmonary Arrest) (Latest Code Status on File) Date Activated Date Inactivated Comments 05/11/2025 4:44 PM 05/13/2025 5:18 PM Question Answer Comments Mechanical Ventilation (for respiratory distress) - Invasive (i.e. intubation): No Mechanical Ventilation (for respiratory distress) - Non-Invasive (i.e. BiPAP, CPAP): Yes Care Teams Woven Paper Hat Mender Relationship Specialty Start Date End Date Virgil Beaulieu MD [address] [place] [id number] PCP - General Internal Medicine 05/11/25
--- OUTSIDE RECORDS SUMMARY | 2025-07-17 12:49 | XMS_ITS ---
Author Organization [facility] Address [address] [facility] [place] [address] Care Team Providers Care Physics Instructor Name Role Phone Virgil Beaulieu MD Primary Care Provider Active Problems Problem Noted Date Diagnosed Date [...] abuse 04/05/2025 Shortness of breath 04/05/2025 Other seo expert (current) drug therapy Panlobular emphysema 11/18/2018 Current Treatment and Therapy Plans No current plan information found. Past Treatment and Therapy Plans No past plan information found. Lifetime Dose Tracking * Chemical Lifetime Dose Automatic Entry Manual Entr y Effective Dose 5.98 mSv 5.98 mSv 0 mSv Total DLP 251.01 DLP 251.01 DLP 0 DLP CTDIvol Max 5.47 mGy 5.47 mGy 0 mGy
[2025-07-17 13:11] LABS: ABG PH Result 7.43 (7.35-7.45); Alveolar-Arterial Oxygen Gradi 6.3 mmHg (5-10); Arterial Blood Gas Hematocrit 28.5 % (42-52); Blood Gas Allen Test Pos; Blood Gas LPM 4.0 %; Blood Gas Operator Identificat AMH; Blood Gas Sample Site Radial, right; Blood Gas Sample Type Arterial; Carboxyhemoglobin 1.5 %THgb (0.4-20.1); Glucose Level-ABG 136.0 mg/dL (70-115); HCO3 ABG 42.5 mmol/L (22-26); Ionized Calcium Level - ABG 1.1 mmol/L (1.1-1.4); Methemoglobin 0.2 % (0.4-1.5); Oxygen Saturation ABG > 99.1; PO2 ABG 131.0 mmHg (80.0-100.0); PO2 FiO2 Ratio Arterial Blood 363; Potassium Level - ABG 5.4 mmol/L (3.5-5.0); Sodium Level - ABG 127.0 mmol/L (131-143)
--- NOTE | 2025-07-17 13:11 | ECG_ITS ---
[facility] Test Date: 2025-07-17 Pat Name: Sim Carty Department: Room: Gender: Male Length Control Tester: : 1950 Requested By: Nikita Blackwell Order Number: [id number] Reading MD: SOBIA GODWIN Measurements Intervals [place] Rate: 99 P: 84 [place]: 133 QRS: 80 QRSD: 96 T: 78 QT: 327 QTc: 420 Interpretive Statements SINUS RHYTHM RIGHT ATRIAL ENLARGEMENT [0.3mV P-WAVE] No previous ECG available for comparison Electronically Signed On 07-18-2025 22:26:03 CDT by SOBIA GODWIN [id number]
[2025-07-17 13:13] LABS: Hematocrit 30.0 % (37-53); Hemoglobin 9.60 g/dL (11.27-16.99); Mean Corpuscular HGB Conc 32.0 g/dL (30-55); Mean Corpuscular Hemoglobin 31.5 pg (27-33); Mean Corpuscular Volume 98.4 fl (82-101); Nucleated Red Blood Cells % 0 %; Platelet Count 458 10^3/cmm (157-399); Red Blood Count 3.05 10^6/uL (3.85-5.65)
[2025-07-17 13:13] LABS: ABG PCO2 64.1 mmHg (35-45)
[2025-07-17 13:16] LABS: White Blood Count 50.32 10^3/uL (3.29-11.43)
[2025-07-17 13:34] LABS: Troponin(5th) Baseline 17 ng/L (0-15)
[2025-07-17 13:36] LABS: Lactic Sepsis W/Reflex 2.1 mmol/L (0.5-2.2)
[2025-07-17 13:41] LABS: Reflex Lactate Order REFLEX LACTIC ORDERD
--- NOTE | 2025-07-17 13:41 | CTR_ITS ---
PROCEDURE INFORMATION: Exam: CTA Chest With Contrast Exam date and time: 07/17/2025 2:09 PM Age: 75 years old Clinical indication: Shortness of breath; Additional info: Hypoxia lung cancer TECHNIQUE: Imaging protocol: Computed tomographic angiography of the chest with contrast. Exam focused on the arteries. 3D rendering (Not supervised by radiologist): MIP and/or 3D reconstructed images were created by the technologist. Radiation optimization: All CT scans at this facility use at least one of these dose optimization techniques: automated exposure control; mA and/or kV adjustment per patient size (includes targeted exams where dose is matched to clinical indication); or iterative reconstruction. Contrast material: OMNI 350; Contrast volume: 80 ml; Contrast route: INTRAVENOUS (IV); COMPARISON: CR (CHEST, ) 07/17/2025 1:11 PM RADIATION DOSE METRICS: Total DLP (mGy-cm): 503.13 FINDINGS: Tubes, catheters and devices: None. Pulmonary arteries: No intraluminal filling defect of the pulmonary arteries to suggest embolism. Pulmonary arteries are normal in caliber. Aorta: No aortic aneurysm. No aortic dissection. Thyroid: Unremarkable. Trachea: Mild diffuse wall thickening of the trachea and central airways. Occlusion of the left upper lobe bronchus and partial effacement of the lingular bronchus secondary to left hilar mass. Lungs: Biapical scarring. Moderate centrilobular emphysema. A 4.7 x 3.8 x 5.1 cm (AP by TR by CC) left hilar mass, broadly contacting the left main pulmonary artery and encasing the anterior and apicoposterior pulmonary artery branches. The mass is contiguous with an elongated 6.6 x 1.8 cm region of consolidation extending into the anterior segment left upper lobe, compatible with postobstructive consolidation or direct spread of malignancy. A 1.1 x 0.8 cm solid nodule in the right lung apex (series 17, image 64). A 4 mm nodule in the right middle lobe (series 17, image 384). Mild atelectasis in the inferior lingula. Pleural spaces: No pneumothorax. No pleural effusion. Heart: No cardiomegaly. No pericardial effusion. Coronary arteries: Coronary artery calcifications are present. Esophagus: Unremarkable. Mediastinal space: No anterior mediastinal mass. Lymph nodes: No mediastinal, right hilar, axillary, or supraclavicular lymphadenopathy. Liver: Multiple ill-defined hypodense lesions in the partially visualized liver measuring up to 3.0 cm. Adrenal glands: Thickening of the bilateral adrenal glands. A 2.2 cm right adrenal gland nodule. Bones/joints: No acute fracture. No suspicious lesion. Soft tissues: Unremarkable. CT/CT angio chest PE protcl [id number] IMPRESSION: 1. No evidence of pulmonary embolism. 2. A 4.7 x 3.8 x 5.1 cm (AP by TR by CC) left hilar mass, highly concerning for malignancy. Recommend nonemergent follow-up PET-CT and tissue sampling. 3. A 1.1 x 0.8 cm solid nodule in the right lung apex. 4. A 4 mm nodule in the right middle lobe. 5. Multiple ill-defined hypodense lesions in the partially visualized liver measuring up to 3.0 cm, concerning for metastases. 6. A 2.2 cm right adrenal gland nodule, concerning for metastasis.
[2025-07-17 13:47] LABS: NT Pro B Type Natriuretic Pept 123 pg/mL (0-450); Procalcitonin 0.13 ng/mL (0-0.5)
[2025-07-17 13:49] LABS: Respiratory Syncytial Virus Ce NEGATIVE (Negative); SARS-CoV-2 PCR NEGATIVE (Negative)
[2025-07-17 13:58] LABS: Alanine Aminotransferase 37 U/L (0-41); Albumin Level 4.0 g/dL (3.5-5.2); Alkaline Phosphatase 104 U/L (40-130); Anion Gap 16.1 (5-19); Aspartate Amino Transferase 30 U/L (0-40); Blood Urea Nitrogen 12 mg/dL (8-23); Calcium 9.3 mg/dL (8.5-10.5); Carbon Dioxide 31 mmol/L (22-29); Chloride 81 mmol/L (98-107); Creatinine Clr Calc Pharmacy 58.0453; Globulin 2.6 g/dL (1.3-4.6); Glucose 129 mg/dL (65-115); Osmolality Calculated 259 mOsm/kg (285-295); Potassium 4.1 mmol/L (3.5-5.1); Sodium 124 mmol/L (136-145); Total Protein 6.6 g/dL (6.6-8.7)
[2025-07-17 14:10] LABS: NT Pro B Type Natriuretic Pept 123 pg/mL (0-450)
[2025-07-17] MEDS: iohexol 350 mg/mL 500 mL Btl (per mL) IV (14:14)
[2025-07-17] MEDS: piperacillin-tazobactam 3.375 GM in sodium chloride 0.9% (plus) 50 ML IV (14:31)
--- NOTE | 2025-07-17 14:50 | W.ED.SOB ---
HPI - SOB/Dyspnea General: Chief Complaint: Shortness of Breath/Dyspnea Stated Complaint: cough/congestion/phlegm Time Seen by Provider: 07/17/25 12:48 History of Present Illness: HPI Narrative: 75-year-old male who presents to the emergency room with complaints of shortness of breath. Patient is normally on 2 L by nasal cannula reporting O2 sats at 79% at home. On 4 L by nasal cannula improved to 95% has not had any fever sweats chills no hemoptysis no productive cough sounds very congestion. Patient has a history of small cell lung cancer with metastasis he just recently finished a course of chemotherapy earlier this week. He has not had any fever at home. Associated symptoms: Reports chest congestion; Deny abdominal pain, chest pain or fever(s) Related Data Home Medications ?Medication ?Instructions ?Recorded ?Confirmed alprazolam 0.5 mg tablet 0.5 mg PO TID PRN Aniety 07/17/25 07/17/25 atorvastatin 20 mg tablet 20 mg PO BEDTIME 07/17/25 07/17/25 benzonatate 100 mg capsule 100 mg PO DAILY 07/17/25 07/17/25 clopidogrel 75 mg tablet 75 mg PO DAILY 07/17/25 07/17/25 cyanocobalamin (B12)-cobamamide 1 arnold sublingual DAILY 07/17/25 07/17/25 5,000 mcg-100 mcg sublingual lozenge (B12) furosemide 40 mg tablet 40 mg PO DAILY 07/17/25 07/17/25 guaifenesin 600 mg tablet, 1,200 mg PO BID 07/17/25 07/17/25 extended release 12 hr (Mucinex) hydrocodone 5 mg-acetaminophen 325 1 tab PO BID PRN Pain, Moderate 07/17/25 07/17/25 mg tablet ipratropium 0.5 mg-albuterol 3 mg 3 ml inhalation Q6H PRN sob 07/17/25 07/17/25 (2.5 mg base)/3 mL nebulization soln mirtazapine 7.5 mg tablet 7.5 mg PO BEDTIME 07/17/25 07/17/25 tamsulosin 0.4 mg capsule 0.4 mg PO BEDTIME 07/17/25 07/17/25 trazodone 50 mg tablet 50 mg PO DAILY PRN Sleep 07/17/25 07/17/25 Previous Rx's ?Medication ?Instructions ?Recorded aluminum-mag hydroxide-simethicone 15 ml PO Q6H PRN Indigestion 60 07/19/25 200 mg-200 mg-20 mg/5 mL oral susp days #3,000 mL (Mag-Al Plus) levofloxacin 750 mg tablet 750 mg PO DAILY 10 days #10 tabs 07/19/25 Allergies Allergy/AdvReac Type Severity Reaction Status Date / Time budesonide Allergy ADR-Gastrointestinal Verified 07/17/25 18:18 Upset Review of Systems Const: Denies: fever(s) or chills Card: Denies: chest pain Resp: Reports: dyspnea, non-productive cough, wheezing and chest congestion GI: Denies: abdominal pain : Denies: dysuria, urinary frequency or urinary urgency Musc: Denies: neck pain or back pain Skin/Breast: Denies: rash Physical Exam Const: GENERAL APPEARANCE: cooperative ORIENTATION/CONSCIOUSNESS: Yes awake, Yes oriented to person, Yes oriented to place and Yes oriented to time HENMT: COMMON NORMALS: normocephalic, atraumatic and hearing grossly normal bilaterally HEAD & SCALP: normocephalic and atraumatic Resp: EFFORT & INSPECTION: Yes tachypneic and Yes uses accessory muscles AUSCULTATION: rhonchi and wheezes Cardio: COMMON NORMALS: regular rate, regular rhythm and No murmurs present (Cardio) RATE: regular rate RHYTHM: regular rhythm GI: COMMON NORMALS: Soft to palpation and No hepatosplenomegaly present AUSCULTATION: Yes normoactive bowel sounds PALPATION: Yes Soft to palpation, No Tenderness to palpation present (GI), No Guarding due to palpation present (GI) and Yes No hepatosplenomegaly present Extremity: COMMON NORMALS: normal to inspection, capillary refill normal, no clubbing, cyanosis or edema, no calf tenderness and no pedal edema Neuro: SENSORIUM/ORIENTATION: Yes oriented to person, Yes oriented to place and Yes oriented to time Skin: COMMON NORMALS: no rashes or lesions noted GENERAL SKIN EXAM: no rashes or lesions noted Course Vital Signs: Vital signs: Vital Signs Temperature 97.9 F 07/21/25 13:04 Pulse Rate 92 07/21/25 13:04 Respiratory Rate 16 07/21/25 13:04 Blood Pressure 150/73 07/21/25 13:04 Pulse Oximetry 97 07/21/25 13:04 Oxygen Delivery Me thod Nasal Cannula 07/21/25 11:52 Oxygen Flow Rate 2 07/21/25 07:45 Fraction of Inspir ed Oxygen 35 07/17/25 22:10 MDM - SOB/Dyspnea Medical Decision Making Sepsis without septic shock acute on chronic hypercapnic hypoxemic respiratory failure significant elevation of white count and patient with lung cancer with metastasis. After initial evaluation subsequence was immediate concern patient started on cefepime based on history added vancomycin. Lactic acid is not elevated. Discussed with hospitalist orders written will admit. IV fluids given as well. Blood pressure remained stable. Lab Data I reviewed the patient's lab results. 07/21/25 04:35 07/21/25 10:15 Labs/Radiology: Radiology Impressions Chest X-Ray 07/17/25 12:49 IMPRESSION: Left hilar prominence could represent lymphadenopathy, infection, or possibly neoplasm. Recommend CT for further evaluation. Chest CTA 07/17/25 13:41 IMPRESSION: 1. No evidence of pulmonary embolism. 2. A 4.7 x 3.8 x 5.1 cm (AP by TR by CC) left hilar mass, highly concerning for malignancy. Recommend nonemergent follow-up PET-CT and tissue sampling. 3. A 1.1 x 0.8 cm solid nodule in the right lung apex. 4. A 4 mm nodule in the right middle lobe. 5. Multiple ill-defined hypodense lesions in the partially visualized liver measuring up to 3.0 cm, concerning for metastases. 6. A 2.2 cm right adrenal gland nodule, concerning for metastasis. Laboratory Results WBC 50.32 10^3/uL (3.29-11.43) H* 07/17/25 12:55 RBC 3.05 10^6/uL (3.85-5.65) L 07/17/25 12:55 Hgb 9.60 g/dL (11.27-16.99) L 07/17/25 12:55 Hct 30.0 % (37-53) L 07/17/25 12:55 MCV 98.4 fl (82-101) 07/17/25 12:55 MCH 31.5 pg (27-33) 07/17/25 12:55 MCHC 32.0 g/dL (30-55) 07/17/25 12:55 RDW 16.1 % (12.1-15.1) H 07/17/25 12:55 Plt Count 458 10^3/cmm (157-399) H 07/17/25 12:55 MPV 8.3 fL (7.4-10.4) 07/17/25 12:55 Neut % (Auto) 92.9 % 07/17/25 12:55 Lymph % (Auto) 1.7 % 07/17/25 12:55 [place] % (Auto) 1.0 % 07/17/25 12:55 Eos % (Auto) 0.0 % 07/17/25 12:55 Baso % (Auto) 0.3 % 07/17/25 12:55 Neut # (Auto) 46.69 10^3/uL (1.8-7.7) H 07/17/25 12:55 Lymph # (Auto) 0.9 10^3/uL (0.8-4.8) 07/17/25 12:55 [place] # (Auto) 0.5 10^3/uL (0.2-0.9) 07/17/25 12:55 Eos # (Auto) 0.0 10^3/uL (0.0-0.8) 07/17/25 12:55 Baso # (Auto) 0.2 10^3/uL (0.0-0.1) H 07/17/25 12:55 Nucleated RBC % (auto) 0 % 07/17/25 12: Nucleated RBCs # 0.0 /100WBC 07/17/25 12:55 Specimen Type Arterial 07/17/25 13:00 Sample Site Radial, right 07/17/25 13:00 ABG pH 7.43 (7.35-7.45) 07/17/25 13:00 ABG pCO2 64.1 mmHg (35-45) H* 07/17/25 13:00 ABG pO2 131.0 mmHg (80.0-100.0) H 07/17/25 13:00 ABG PO2/FiO2 Ratio 363 07/17/25 13:00 ABG HCO3 42.5 mmol/L (22-26) H 07/17/25 13:00 ABG O2 Saturation > 99.1 07/17/25 13:00 ABG Base Excess 16.0 mmol/L (-2.0-2.0) H 07/17/25 13:00 Fuentes Test Pos 07/17/25 13:00 A-a O2 Gradient 6.3 mmHg (5-10) 07/17/25 13:00 Hematocrit 28.5 % (42-52) L 07/17/25 13:00 Hgb O2 Saturation 98.4 % (95-100) 07/17/25 13:00 Carboxyhemoglobin 1.5 %THgb (0.4-20.1) 07/17/25 13:00 Methemoglobin 0.2 % (0.4-1.5) L 07/17/25 13:00 Total Hemoglobin 9.3 g/dL (14-18) L 07/17/25 13:00 Sodium 127.0 mmol/L (131-143) L 07/17/25 13:00 Potassium 5.4 mmol/L (3.5-5.0) H 07/17/25 13:00 Glucose 136.0 mg/dL (70-115) H 07/17/25 13:00 Ionized Calcium 1.1 mmol/L (1.1-1.4) 07/17/25 13:00 O2 Delivery Device Nc 07/17/25 13:00 O2 Liters/Min 4.0 % 07/17/25 13:00 FiO2 36.0 % 07/17/25 13:00 Lobster Fisherman ID Amh 07/17/25 13:00 Sodium 124 mmol/L (136-145) L 07/17/25 12:55 Potassium 4.1 mmol/L (3.5-5.1) 07/17/25 12:55 Chloride 81 mmol/L (98-107) L 07/17/25 12:55 Carbon Dioxide 31 mmol/L (22-29) H 07/17/25 12:55 Anion Gap 16.1 (5-19) 07/17/25 12:55 BUN 12 mg/dL (8-23) 07/17/25 12:55 Creatinine 0.4 mg/dL (0.7-1.2) L 07/17/25 12:55 GFR Calculation Not Reportable 07/17/25 12:55 Glucose 129 mg/dL (65-115) H 07/17/25 12:55 Calculated Osmolality 259 mOsm/kg (285-295) L 07/17/25 12:55 Lactic Acid 2.1 mmol/L (0.5-2.2) 07/17/25 12:55 Lactic Acid (Sepsis) 1.0 mmol/L (0.5-2.2) 07/17/25 15:02 Calcium 9.3 mg/dL (8.5-10.5) 07/17/25 12:55 Total Bilirubin 0.4 mg/dL (0.15-1.2) 07/17/25 12:55 AST 30 U/L (0-40) 07/17/25 12:55 ALT 37 U/L (0-41) 07/17/25 12:55 Alkaline Phosphatase 104 U/L (40-130) 07/17/25 12:55 Creatine Kinase 42 U/L (39-308) 07/17/25 12:55 Troponin T Baseline 17 ng/L (0-15) H 07/17/25 12:55 Troponin T 120 Minute 16.81 ng/L (0-15) H 07/17/25 15:02 Delta Troponin T -0.19 ABS# (0-10) L 07/17/25 15:02 NT-Pro-B Natriuret Pep 123 pg/mL (0-450) 07/17/25 12:55 NT-Pro-B Natriuret Pep 123 pg/mL (0-450) 07/17/25 12:55 Total Protein 6.6 g/dL (6.6-8.7) 07/17/25 12:55 Albumin 4.0 g/dL (3.5-5.2) 07/17/25 12:55 Globulin 2.6 g/dL (1.3-4.6) 07/17/25 12:55 Procalcitonin 0.13 ng/mL (0-0.5) 07/17/25 12:55 Influenza A (PCR) Negative (Negative) 07/17/25 12:59 Influenza Type B (PCR) Negative (Negative) 07/17/25 12:59 RSV (PCR) Negative (Negative) 07/17/25 12:59 SARS-CoV-2 (PCR) Negative (Negative) 07/17/25 12:59 All radiology interpretation(s) finalized by discharge Discharge Plan Discharge Patient Disposition: Admitted As Inpatient Admit Provider: Alma Landers Clinical Impression: Sepsis, Pneumonia, Severe malnutrition, Metastatic primary lung cancer, Acute on chronic respiratory failure with hypoxia and hypercapnia Condition: Stable Discharge Diet: Advance as tolerated, Usual diet, Cardiac, Diabetic and Low Cholesterol Discharge Activity: Resume usual activity and Limit activity as instructed Coding Level of Care Code ED Precision Inspector for Yobany Mendiola
--- NOTE | 2025-07-17 15:30 | ECG_ITS ---
[facility] Test Date: 2025-07-17 Pat Name: Sim Carty Department: Room: Gender: Male Parts Specialist: : [id number] Requested By: Nikita Blackwell Order Number: [id number] Reading MD: SOBIA GODWIN Measurements Intervals [place] Rate: 99 P: 83 SC: 133 QRS: 83 QRSD: 113 T: 76 QT: 339 QTc: 436 Interpretive Statements SINUS RHYTHM POSSIBLE RIGHT ATRIAL ENLARGEMENT [0.25mV P-WAVE] MODERATE INTRAVENTRICULAR CONDUCTION DELAY [110+ ms QRS DURATION] Compared to ECG 07/17/2025 13:25:25 Intraventricular conduction delay now present Electronically Signed On 07-18-2025 22:29:04 CDT by SOBIA GODWIN [email or web address] [id number]
[2025-07-17 15:35] LABS: Lactic Acid level (Lactate) 1.0 mmol/L (0.5-2.2)
[2025-07-17 15:40] LABS: Troponin 5 2HR 16.81 ng/L (0-15); Troponin 5 2HR Delta -0.19 ABS# (0-10)
[2025-07-17] MEDS: cefepime 1,000 mg SDV 1000 MG IVP (15:49)
--- NOTE | 2025-07-17 17:01 | P.HP_ITS ---
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 The patient also takes a shot to improve his white blood cell count which improved to 10-11,000 after the shot but however at this visit it was found to have 50,000 however the patient was taking oxycodone containing acetaminophen therefore there is a question if the patient was having active fever or not. The patient did not take any flu shot. The patient is being taken care by his family in different cities and he traveled as well from [facility] to [place]. During the last week he has been getting gradual shortness of breath without any leg swellings or any orthopnea or PND. The patient also reported feeling tired. And he is on home oxygen of 2 L but he was desaturating in 80s therefore the daughter increased to 4 L and was able to have good saturation readings. There was no chest pain chest pressure or increase in diarrhea or skin rash. Rest of the review of system is unremarkable Review of Systems 2 General: Reports: 10 or more systems reviewed and unremarkable except in HPI and below Vitals/I&O/Wt Last Vital Signs Temp 98.1 F 07/17/25 12:49 Pulse 97 07/17/25 15:58 Resp 16 07/17/25 13:27 BP 125/77 07/17/25 12:49 Pulse Ox 98 07/17/25 15:58 O2 Del Method Nasal Cannula 07/17/25 13:27 O2 Flow Rate 4 07/17/25 13:27 Weight last 48 hrs Weight 53.07 kg Physical Exam 2 Narrative: General: Alert and oriented, sitting at the edge of the bed with mild distress due to shortness of breath on 4 L nasal cannula saturating 94% and above able to complete full sentences, patient looks cachectic HEENT: Normocephalic, atraumatic, grossly unremarkable exam Cardio: Slightly, normal S1-S2 without any murmurs, however unable to comment on any extra added sounds due to tachycardia Respiratory: Adequate air entry, patient taking shallow breaths therefore unable to comment on any stridor or crackles but no obvious wheezing informed. GI: Abdomen soft, nontender, nondistended, normoactive bowel sounds present all 4 quadrants, Neuro: intact cranial nerves motor and sensory and cerebellar/coordination function without any focal neurological deficit Behavior: Appropriate and cooperative Extremities: Adequate palpable pulses, mild trace pedal edema. Data 07/17/25 12:55 07/17/25 17:06 Micro: Microbiology 07/17/25 13:03 Blood Culture - Preliminary Blood SPECIMEN COLLECTED 07/17/25 12:55 Blood Culture - Preliminary Blood SPECIMEN COLLECTED A&P Assessment and plan 1. Sepsis: Considering patient presentation with shortness of breath, tachypnea, increased white cell count the patient presentation coincides with sepsis, having mild decreased capillary refill Fluid bolus Broad-spectrum antibiotics with cefepime and vancomycin to cover any pseudomonal infection with MRSA coverage considering patient current immunocompromise status Lactate series improved Blood gas shows hypercapnia with increased bicarb which shows his chronic CO2 retention he is alert therefore continue to monitor. Maintain MAP above 65 Maintain oxygen sats in the range of 88 to 92% Adequate chest physiotherapy Intake and output monitoring Monitor and correct any electrolyte dysfunction 2. Pneumonia: Hydrocortisone 50 mg 3 times daily considering severe pneumonia Continue broad-spectrum antibiotics with pseudomonal coverage Sputum and blood cultures Oxygen therapy to maintain his oxygen sats as mentioned above Chest physio- Respiratory viral panel Maintain normal hemodynamics 3. Acute hypoxemic respiratory failure: Secondary to pneumonia and underlying sepsis Respiratory viral panel Oxygen therapy Rest of the treatment as mentioned above 4. Acute hypercapnic respiratory failure: Patient seems to be in chronic retention since his bicarb is a little on the higher side and the patient is alert Consider BiPAP Monitor blood gas in the morning 5. Hyponatremia: Likely secondary to dehydration since the patient is also having low chloride and been taking Lasix Continue fluids, could be an element of SIADH since the patient has known small cell carcinoma If the patient sodium level is worsening post fluids then to hold fluids and keep it up to 1 L/day with supplementation of salt tablets Can consider hypertonic saline small dose of total 300 to be given at 30 mL/h with BMP every 4 hour monitoring. BMP every 4 hour and later to decide if hypertonic saline is required 6. COPD (chronic obstructive pulmonary disease): DuoNebs as scheduled 4 times daily steroids Broad-spectrum antibiotics as mentioned above 7. Severe malnutrition: Dietitian consult for severe malnourishment 8. Stroke: History of stroke patient on clopidogrel and statins The daughter has medications were reconciled therefore to resume after confirmation and reconciliation 9. Urinary catheter in place: Urinary catheter changed 1 week ago as per the daughter Maintain catheter care PDMP PDMP Reviewed: Not Reviewed Attestations 2 Medical Necessity Statement*: Patient will stay more than 2 midnights for the management of his sepsis and severe pneumonia requiring oxygen supplementation and further management Time Spent in Patient Care: 16 - 35 minutes (>than 50% of time sp ent in counselling and/or direct pt care on unit) . Critical Care Time: The high probability of a clinically significant, sudden or life threatening deterioration, as referenced in this documentation, required my full and direct attention, intervention and personal management. The critical care time shown is in addition to time spent performing any reported separately billable procedures and includes the following: [x] Data and vital sign review and interpretation [x ] Patient assessment, examination and intervention [x] Medication orders and management [x] Patient/Family updates as able [x] Care Coordination and Documentation. Other Attestations: Patient condition has been discussed at length with the patient/family, I have independently reviewed the chart labs imaging/diagnostics/EKG. the goals of care and code status with the patient/family/NOK/legal authorization representative, and documented accordingly. The patient/family has been informed about the current condition and further plan of care. Agreed with the plan of care and understood without any language barrier. Every effort was made to ensure accuracy of patient safety sitter. Any obvious errors or omissions should be clarified with the author of the document. Coding Level of Care Code Critical Care >/= 30 minutes Diagnoses Sepsis A41.9 Pneumonia J18.9 Acute hypoxemic respiratory failure J96.01 Acute hypercapnic respiratory failure J96.02 Hyponatremia E87.1 COPD (chronic obstructive pulmonary disease) J44.9 Severe malnutrition E43 Stroke I63.[address] Z96.0
--- NOTE | 2025-07-17 17:05 | PHA.VACGOAL ---
Vancomycin Goal - Goal Vancomycin Goal:: 15-20 mg/L Vancomycin Indication:: Other - Therapy Current therapy:: Cefepime Day of therpy:: Day []of [] . Actual body weight (kg): 117 lb - Data Labs: WBC 50.32 10^3/uL (3.29-11.43) H* 07/17/25 12:55 RBC 3.05 10^6/uL (3.85-5.65) L 07/17/25 12:55 Hgb 9.60 g/dL (11.27-16.99) L 07/17/25 12:55 Hct 30.0 % (37-53) L 07/17/25 12:55 MCV 98.4 fl (82-101) 07/17/25 12: MCH 31.5 pg (27-33) 07/17/25 12:55 MCHC 32.0 g/dL (30-55) 07/17/25 12: RDW 16.1 % (12.1-15.1) H 07/17/25 12:55 Sodium 124 mmol/L (136-145) L 07/17/25 12:55 Potassium 4.1 mmol/L (3.5-5.1) 07/17/25 12:55 Chloride 81 mmol/L (98-107) L 07/17/25 12:55 Carbon Dioxide 31 mmol/L (22-29) H 07/17/25 12:55 Anion Gap 16.1 (5-19) 07/17/25 12:55 BUN 12 mg/dL (8-23) 07/17/25 12:55 Creatinine 0.4 mg/dL (0.7-1.2) L 07/17/25 12:55 GFR Calculation Not Reportable 07/17/25 12:55 Last dialysis session:: N/A Treatment plan:: new consult Regimen:: INITIAL LOADING DOSE OF 1500 MG X 1 MAINTENANCE DOSE OF 500 MG Q12H PER DOSING PROTOCOL Follow up:: WILL CONTINUE TO MONITOR AND FOLLOW UP DAILY
[2025-07-17 17:34] LABS: Blood Urea Nitrogen 12 mg/dL (8-23); Calcium 8.3 mg/dL (8.5-10.5); Carbon Dioxide 31 mmol/L (22-29); Chloride 87 mmol/L (98-107); Creatinine Clr Calc Pharmacy 58.0453; Glucose 93 mg/dL (65-115); Magnesium 1.6 mg/dL (1.7-2.3); Osmolality Calculated 261 mOsm/kg (285-295); Sodium 126 mmol/L (136-145)
[2025-07-17 17:37] LABS: Anion Gap 12.7 (5-19); Potassium 4.7 mmol/L (3.5-5.1)
[2025-07-17] MEDS: morphine 4 mg/mL SDV 1 mL 2 MG IVP (17:57)
[2025-07-17] MEDS: pantoprazole 40 mg SDV IVP (17:59)
[2025-07-17] MEDS: heparin 5,000 unit/mL INJ 1 mL 5000 UNIT SUBCUT (18:01)
--- NOTE | 2025-07-17 18:55 | ECG_ITS ---
[facility] Date: 2025[facility]18 Pat Name: Sim Carty Department: Room: ICU01 Gender: Male Shuttle Hand: : 1950 Requested By: Nikita Blackwell Order Number: [id number] Reading MD: SOBIA GODWIN Measurements Intervals [place] Rate: 89 P: 86 [place]: 132 QRS: 80 QRSD: 97 T: 79 QT: 350 QTc: 427 Interpretive Statements SINUS RHYTHM POSSIBLE LEFT ATRIAL ENLARGEMENT [-0.1mV P-WAVE IN V1/V2] INCOMPLETE RIGHT BUNDLE BRANCH BLOCK [90+ ms QRS DURATION, TERMINAL R IN V1/V2, 40+ ms S IN I/aVL/V4/V5/V6] Compared to ECG 07/17/2025 15:30:11 Incomplete right bundle-branch block now present Intraventricular conduction delay no longer present Electronically Signed On 07-18-2025 22:28:55 CDT by SOBIA GODWIN [id number]
[2025-07-17] MEDS: hydrocortisone 100 mg/2 mL SDV 50 MG IVP (19:18)
[2025-07-17] MEDS: magnesium sulfate premix 2 GM/50 ML PIGGYBACK IV (19:19)
[2025-07-17 19:40] LABS: Troponin 5 6HR 17.76 ng/L (0-15); Troponin 5 6HR Delta 0.76 ng/L (0-12)
[2025-07-17 19:41] LABS: Anion Gap 11.5 (5-19); Blood Urea Nitrogen 10 mg/dL (8-23); Calcium 8.6 mg/dL (8.5-10.5); Carbon Dioxide 34 mmol/L (22-29); Chloride 88 mmol/L (98-107); Creatinine Clr Calc Pharmacy 58.0453; Glucose 97 mg/dL (65-115); Osmolality Calculated 267 mOsm/kg (285-295); Potassium 4.5 mmol/L (3.5-5.1); Sodium 129 mmol/L (136-145)
[2025-07-17 22:12] LABS: Anion Gap 11.5 (5-19); Blood Urea Nitrogen 10 mg/dL (8-23); Calcium 8.4 mg/dL (8.5-10.5); Carbon Dioxide 34 mmol/L (22-29); Chloride 88 mmol/L (98-107); Creatinine Clr Calc Pharmacy 58.0453; Glucose 139 mg/dL (65-115); Osmolality Calculated 269 mOsm/kg (285-295); Potassium 4.5 mmol/L (3.5-5.1); Sodium 129 mmol/L (136-145)
[2025-07-18] VITALS (48 sets, daily range): BP systolic 100–168; BP diastolic 43–89; PULSE 86–107; RESP 14–30; TEMP 36.6–36.9; O2SAT 89–99
[2025-07-18] MEDS: morphine 4 mg/mL SDV 1 mL 2 MG IVP (00:46)
[2025-07-18] MEDS: hydrocortisone 100 mg/2 mL SDV 50 MG IVP ×3 (03:14→17:47)
[2025-07-18] MEDS: vancomycin 500 MG in sodium chloride 0.9% (plus) 100 ML 200 MG IV ×2 (04:34→17:47)
[2025-07-18] MEDS: heparin 5,000 unit/mL INJ 1 mL 5000 UNIT SUBCUT ×2 (04:34→17:46)
[2025-07-18 05:06] LABS: Hematocrit 27.9 % (37-53); Hemoglobin 9.20 g/dL (11.27-16.99); Mean Corpuscular HGB Conc 33.0 g/dL (30-55); Mean Corpuscular Hemoglobin 33.5 pg (27-33); Mean Corpuscular Volume 101.5 fl (82-101); Nucleated Red Blood Cells % 0 %; Platelet Count 575 10^3/cmm (157-399); Red Blood Count 2.75 10^6/uL (3.85-5.65)
[2025-07-18 05:32] LABS: Alanine Aminotransferase 32 U/L (0-41); Albumin Level 3.8 g/dL (3.5-5.2); Alkaline Phosphatase 122 U/L (40-130); Aspartate Amino Transferase 29 U/L (0-40); Blood Urea Nitrogen 14 mg/dL (8-23); Calcium 8.9 mg/dL (8.5-10.5); Carbon Dioxide 33 mmol/L (22-29); Chloride 88 mmol/L (98-107); Creatinine Clr Calc Pharmacy 63.9844; Globulin 2.2 g/dL (1.3-4.6); Glucose 86 mg/dL (65-115); Osmolality Calculated 272 mOsm/kg (285-295); Sodium 131 mmol/L (136-145); Total Protein 6.0 g/dL (6.6-8.7)
[2025-07-18 05:36] LABS: Magnesium 2.1 mg/dL (1.7-2.3)
[2025-07-18 05:49] LABS: Anion Gap 15.0 (5-19); Potassium 5.0 mmol/L (3.5-5.1)
[2025-07-18 06:07] LABS: Slide Review Slide Review Perform
[2025-07-18 06:08] LABS: White Blood Count 56.70 10^3/uL (3.29-11.43)
[2025-07-18 06:26] LABS: ABG PCO2 57.8 mmHg (35-45); ABG PH Result 7.40 (7.35-7.45); Alveolar-Arterial Oxygen Gradi 0.1 mmHg (5-10); Arterial Blood Gas Hematocrit 27.5 % (42-52); Blood Gas Allen Test Pos; Blood Gas LPM 2.0 %; Blood Gas Operator Identificat SAM; Blood Gas Sample Site Radial, left; Blood Gas Sample Type Arterial; Carboxyhemoglobin 1.4 %THgb (0.4-20.1); Glucose Level-ABG 130.0 mg/dL (70-115); HCO3 ABG 36.0 mmol/L (22-26); Ionized Calcium Level - ABG 1.2 mmol/L (1.1-1.4); Methemoglobin 0.2 % (0.4-1.5); Oxygen Saturation ABG 96.7; PO2 ABG 78.8 mmHg (80.0-100.0); Potassium Level - ABG 4.4 mmol/L (3.5-5.0); Sodium Level - ABG 131.0 mmol/L (131-143)
--- NOTE | 2025-07-18 06:58 | PC.NURSE ---
Received orders to DC IV Fluids aprox. 0200.
--- NOTE | 2025-07-18 07:31 | PC.NURSE ---
2351: Contacted Dr. Pinon in reference to patient coughing up small amounts of blood x3 times. Advised I did not feel comfortable keeping the patient on Bipap due to the dryness and extra pressure potentially aggrevating a wound/bleed in the airway. Did not receive order specifically to continue or DC Bipap, the order remains on the patient's chart. However, Bipap was not continued, no decline in respiratory or neuro status was noted during remainder of shift.
--- NOTE | 2025-07-18 17:18 | P.PN_ITS ---
Subjective 2 Subjective: Patient was seen in the morning, he was on nasal cannula 4 to 5 L and was having his breakfast His tachypnea has improved much better and he is able to complete full sentences without getting short of breath Having mild phlegm jessica in color mixed with streaks of blood which the patient reported he has it in the past as well. Could be related to his pneumonia versus post chemo considering he has known small cell carcinoma. Continue to monitor Vitals/I&O/Wt Last Vital Signs Temp 97.8 F 07/18/25 14:00 Pulse 99 07/18/25 15:03 Resp 16 07/18/25 15:03 BP 129/60 07/18/25 15:00 Pulse Ox 98 07/18/25 15:03 O2 Del Method Nasal Cannula 07/18/25 15:03 O2 Flow Rate 2 07/18/25 15:03 FiO2 35 07/17/25 22:10 07/18/25 07/18/25 07/18/25 06:59 14:59 22:59 Intake Total 898.333 / 2698.333 400 / 400 Output Total 600 / 600 Balance 298.333 / 2098.333 400 / 400 Weight last 48 hrs Weight 56.5 kg Weight 58.5 kg Weight 53.07 kg Physical Exam 2 Narrative: General: Alert and oriented, sitting comfortably at the edge of the bed having his breakfast with 3 to 4 L nasal cannula saturating 93 to 94% and above able to complete full sentences not in distress patient looks cachectic HEENT: Normocephalic, atraumatic, grossly unremarkable exam Cardio: Slightly, normal S1-S2 without any murmurs, however unable to comment on any extra added sounds due to tachycardia Respiratory: Adequate air entry, patient taking shallow breaths therefore unable to comment on any stridor or crackles but no obvious wheezing informed. GI: Abdomen soft, nontender, nondistended, normoactive bowel sounds present all 4 quadrants, Neuro: intact cranial nerves motor and sensory and cerebellar/coordination function without any focal neurological deficit Behavior: Appropriate and cooperative Extremities: Adequate palpable pulses, mild trace pedal edema. Urinary Catheter Management: [place]: Cath Placed During This Visit: no Reason for Continuing Indwelling Catheter: Chronic Indwelling Urinary Catheter on Admission Data 07/18/25 03:55 07/18/25 03:55 Micro: Microbiology 07/17/25 13:03 Blood Culture - Preliminary Blood NEGATIVE TO DATE 07/17/25 12:55 Blood Culture - Preliminary Blood NEGATIVE TO DATE A&P Assessment and plan 1. Sepsis: Currently resolving sepsis possible underlying pneumonia Broad-spectrum antibiotics with cefepime and vancomycin to cover any pseudomonal infection with MRSA coverage considering patient current immunocompromise status Lactate series improved Blood gas shows hypercapnia with increased bicarb which shows his chronic CO2 retention he is alert therefore continue to monitor, repeat blood gas in the morning is improved and he was s/p BiPAP. Maintain MAP above 65 Maintain oxygen sats in the range of 88 to 92% Adequate chest physiotherapy Intake and output monitoring Monitor and correct any electrolyte dysfunction 2. Pneumonia: Hydrocortisone 50 mg 3 times daily considering severe pneumonia Continue broad-spectrum antibiotics with pseudomonal coverage Sputum and blood cultures Oxygen therapy to maintain his oxygen sats as mentioned above Chest physio-manual and avoid chest vest Respiratory viral panel Maintain normal hemodynamics 3. Acute hypoxemic respiratory failure: Secondary to pneumonia and underlying sepsis Respiratory viral panel Oxygen therapy Rest of the treatment as mentioned above 4. Acute hypercapnic respiratory failure: Patient seems to be in chronic retention since his bicarb is a little on the higher side and the patient is alert Continue to monitor, patient never had BiPAP or CPAP. Patient had BiPAP overnight and was having mild jessica colored sputum with streaks of blood. To avoid BiPAP at the moment since the patient might be at risk of aspiration versus lung injury. Neurochecks every shift 5. Hyponatremia: Resolved secondary to dehydration and corrected with normal saline Continue to monitor BMP Continue gentle hydration for 10 hours with 75 mL of NaCl 6. COPD (chronic obstructive pulmonary disease): DuoNebs as scheduled 4 times daily steroids Broad-spectrum antibiotics as mentioned above 7. Severe malnutrition: Dietitian consult for severe malnourishment 8. Stroke: History of stroke patient on clopidogrel and statins The daughter has medications were reconciled therefore to resume after confirmation and reconciliation 9. Urinary catheter in place: Urinary catheter changed 1 week ago as per the daughter Maintain catheter care PDMP PDMP Reviewed: Not Reviewed Attestations 2 Medical Necessity Statement*: Patient will stay overnight for the management of his acute on chronic hypoxemic respiratory failure and acute on chronic hypercapnic respiratory failure secondary to COPD exacerbation versus pneumonia and sepsis is resolving Time Spent in Patient Care: 16 - 35 minutes (>than 50% of time sp ent in counselling and/or direct pt care on unit) . Critical Care Time: The high probability of a clinically significant, sudden or life threatening deterioration, as referenced in this documentation, required my full and direct attention, intervention and personal management. The critical care time shown is in addition to time spent performing any reported separately billable procedures and includes the following: [x] Data and vital sign review and interpretation [x ] Patient assessment, examination and intervention [x] Medication orders and management [x] Patient/Family updates as able [x] Care Coordination and Documentation. Critical Care Time (min): 35 Other Attestations: Patient condition has been discussed at length with the patient/family, I have independently reviewed the chart labs imaging/diagnostics/EKG. the goals of care and code status with the patient/family/NOK/legal veterans contact representative, and documented accordingly. The patient/family has been informed about the current condition and further plan of care. Agreed with the plan of care and understood without any language barrier. Every effort was made to ensure accuracy of briquetting machine operator. Any obvious errors or omissions should be clarified with the author of the document. Coding Level of Care Code Critical Care >/= 30 minutes Diagnoses Sepsis A41.9 Pneumonia J18.9 Acute hypoxemic respiratory failure J96.01 Acute hypercapnic respiratory failure J96.02 Hyponatremia E87.1 COPD (chronic obstructive pulmonary disease) J44.9 Severe malnutrition E43 Stroke I63.[address] Z96.0
[2025-07-18] MEDS: pantoprazole 40 mg SDV IVP (17:47)
--- NOTE | 2025-07-18 19:14 | PC.NURSE ---
Shift summary: Pt rested in bed for most of shift. Several trips to [facility] made for BMs. He remains alert and oriented. He is utilizing his home O2 amount of 2 lpm/NC. Lung sounds auscultated coarse crackles in bases. he has a productive cough. His sputum is jessica ( phlegm with old blood). His O2 sats are around 93-97 %. Sinus rhythm noted on monitor. He has an excellent appetite, eats majority of his meals. NS IVF started this evening. Resp. panel pending. He did not report any pain or discomforts this shift.
[2025-07-18 20:51] LABS: Coronavirus 229E,HKU1,NL63,OC4 Not Detected (NOT DETECT); Parainfluenza Virus Type 1 Not Detected (NOT DETECT); Parainfluenza Virus Type 2 Not Detected (NOT DETECT); Parainfluenza Virus Type 3 Not Detected (NOT DETECT); Parainfluenza Virus Type 4 Not Detected (NOT DETECT); SARS-COV-2 Not Detected (NOT DETECT)
[2025-07-18] MEDS: HYDROcodone-acetaminophen 5-325 mg Tablet 1 TAB PO (21:28)
[2025-07-19] VITALS (32 sets, daily range): BP systolic 109–171; BP diastolic 42–114; PULSE 83–107; RESP 12–35; TEMP 36.4–37.1; O2SAT 86–99
[2025-07-19] MEDS: cefepime 2,000 mg SDV 2000 MG IVP ×4 (01:05→23:34)
[2025-07-19] MEDS: hydrocortisone 100 mg/2 mL SDV 50 MG IVP ×2 (02:04→10:48)
[2025-07-19] MEDS: HYDROcodone-acetaminophen 5-325 mg Tablet 1 TAB PO (02:06)
[2025-07-19 04:53] LABS: Hematocrit 26.3 % (37-53); Hemoglobin 8.20 g/dL (11.27-16.99); Mean Corpuscular HGB Conc 31.2 g/dL (30-55); Mean Corpuscular Hemoglobin 31.8 pg (27-33); Mean Corpuscular Volume 101.9 fl (82-101); Nucleated Red Blood Cells % 0 %; Platelet Count 481 10^3/cmm (157-399); Red Blood Count 2.58 10^6/uL (3.85-5.65)
[2025-07-19 05:19] LABS: Alanine Aminotransferase 27 U/L (0-41); Albumin Level 3.0 g/dL (3.5-5.2); Alkaline Phosphatase 192 U/L (40-130); Anion Gap 12.6 (5-19); Aspartate Amino Transferase 22 U/L (0-40); Blood Urea Nitrogen 13 mg/dL (8-23); Calcium 8.6 mg/dL (8.5-10.5); Carbon Dioxide 32 mmol/L (22-29); Chloride 93 mmol/L (98-107); Creatinine Clr Calc Pharmacy 61.7969; Globulin 2.7 g/dL (1.3-4.6); Glucose 103 mg/dL (65-115); Osmolality Calculated 276 mOsm/kg (285-295); Potassium 4.6 mmol/L (3.5-5.1); Sodium 133 mmol/L (136-145); Total Protein 5.7 g/dL (6.6-8.7)
[2025-07-19 05:26] LABS: Slide Review Slide Review Perform
[2025-07-19 05:28] LABS: White Blood Count 50.61 10^3/uL (3.29-11.43)
[2025-07-19] MEDS: heparin 5,000 unit/mL INJ 1 mL 5000 UNIT SUBCUT ×2 (06:18→17:56)
[2025-07-19] MEDS: vancomycin 500 MG in sodium chloride 0.9% (plus) 100 ML 200 MG IV (06:19)
--- NOTE | 2025-07-19 14:32 | PC.SOCIAL ---
IMM Update pg 2 of IMM Updated and reviewed w/ patient. Copy provided and copy dated, initialed and placed in chart.
--- NOTE | 2025-07-19 17:05 | P.PN_ITS ---
Subjective 2 Subjective: Patient seen in the morning, was sitting comfortably with 2 to 3 L nasal cannula able to breathe in full sentences He was mild wheezy, and later on had episode of tachypnea and tachycardia that resolved after nebulization and steroids. Still having mild exacerbation symptoms. However much improved than the day of admission Vitals/I&O/Wt Last Vital Signs Temp 97.5 F L 07/19/25 13:00 Pulse 103 H 07/19/25 15:30 Resp 21 H 07/19/25 15:20 BP 141/69 07/19/25 14:00 Pulse Ox 97 07/19/25 15:20 O2 Del Method Nasal Cannula 07/19/25 15:20 O2 Flow Rate 2 07/19/25 15:20 FiO2 35 07/17/25 22:10 07/19/25 07/19/25 07/19/25 06:59 14:59 22:59 Intake Total 1650 / 1650 Output Total 400 / 800 1500 / 1500 Balance -400 / 200 150 / 150 Weight last 48 hrs Weight 55.629 kg Weight 55.629 kg Weight 56.5 kg Weight 58.5 kg Physical Exam 2 Narrative: General: Alert and oriented, sitting comfortably at the edge of the bed having his breakfast with 2 to 3 L nasal cannula saturating 93 to 94% and above able to complete full sentences not in distress patient looks cachectic HEENT: Normocephalic, atraumatic, grossly unremarkable exam Cardio: Slightly, normal S1-S2 without any murmurs, however unable to comment on any extra added sounds due to tachycardia Respiratory: Patient comfortably speaking in full sentences, having mild shallow breathing pattern and bilateral wheezing, mild tachypnea with rate 22-24 however bilateral good air entry comparatively better relatively, no stridor. GI: Abdomen soft, nontender, nondistended, normoactive bowel sounds present all 4 quadrants, Neuro: Gross neurological examination unremarkable Behavior: Appropriate and cooperative Extremities: Adequate palpable pulses, mild trace pedal edema. Urinary Catheter Management: Cuadra: Cath Placed During This Visit: no Reason for Continuing Indwelling Catheter: Accurate Measurement of Urinary Output in Critically Ill Patients Data 07/19/25 03:35 07/19/25 03:35 Micro: Microbiology 07/17/25 19:05 Sputum Culture - Preliminary Sputum - Expectorated Sputum 07/17/25 13:03 Blood Culture - Preliminary Blood NEGATIVE TO DATE 07/17/25 12:55 Blood Culture - Preliminary Blood NEGATIVE TO DATE A&P Assessment and plan 1. Sepsis: Currently resolving sepsis possible underlying pneumonia Broad-spectrum antibiotics with cefepime and vancomycin to cover any pseudomonal infection with MRSA coverage considering patient current immunocompromise status Lactate series improved Maintain MAP above 65 Maintain oxygen sats in the range of 88 to 92% Adequate chest physiotherapy Intake and output monitoring Monitor and correct any electrolyte dysfunction 2. Pneumonia: Switch hydrocortisone to Methylpred 60 mg daily Continue nebulizations as scheduled Manual chest physiotherapy Continue broad-spectrum antibiotics with pseudomonal coverage Sputum and blood cultures till date negative Respiratory viral panel is negative Maintain normal hemodynamics 3. Acute hypoxemic respiratory failure: Secondary to pneumonia and underlying sepsis Respiratory viral panel negative Oxygen therapy Rest of the treatment as mentioned above 4. Acute hypercapnic respiratory failure: Patient seems to be in chronic retention since his bicarb is a little on the higher side and the patient is alert Continue to monitor, patient never had BiPAP or CPAP. Patient had BiPAP overnight after admission date and was having mild jessica colored sputum with streaks of blood. To avoid BiPAP at the moment since the patient might be at risk of aspiration versus lung injury. No further bleeding episodes from sputum, currently stable continue to monitor Neurochecks every shift 5. Hyponatremia: Resolved secondary to dehydration and corrected with normal saline Continue to monitor BMP Continue gentle hydration for 10 hours with 75 mL of NaCl 6. COPD (chronic obstructive pulmonary disease): DuoNebs as scheduled 4 times daily steroids Broad-spectrum antibiotics as mentioned above 7. Severe malnutrition: Dietitian consult for severe malnourishment 8. Stroke: History of stroke patient on clopidogrel and statins The daughter has medications were reconciled therefore to resume after confirmation and reconciliation 9. Urinary catheter in place: Urinary catheter changed 1 week ago as per the daughter Maintain catheter care PDMP PDMP Reviewed: Not Reviewed Attestations 2 Medical Necessity Statement*: Patient will stay overnight for further optimization of his care secondary to underlying sepsis from pneumonia/COPD exacerbation Time Spent in Patient Care: 16 - 35 minutes (>than 50% of time sp ent in counselling and/or direct pt care on unit) . Critical Care Time: The high probability of a clinically significant, sudden or life threatening deterioration, as referenced in this documentation, required my full and direct attention, intervention and personal management. The critical care time shown is in addition to time spent performing any reported separately billable procedures and includes the following: [x] Data and vital sign review and interpretation [x ] Patient assessment, examination and intervention [x] Medication orders and management [x] Patient/Family updates as able [x] Care Coordination and Documentation. Critical Care Time (min): 35 Other Attestations: Patient condition has been discussed at length with the patient/family, I have independently reviewed the chart labs imaging/diagnostics/EKG. the goals of care and code status with the patient/family/NOK/legal access representative, and documented accordingly. The patient/family has been informed about the current condition and further plan of care. Agreed with the plan of care and understood without any language barrier. Every effort was made to ensure accuracy of ground school instructor. Any obvious errors or omissions should be clarified with the author of the document. Coding Level of Care Code Critical Care >/= 30 minutes Diagnoses Sepsis A41.9 Pneumonia J18.9 Acute hypoxemic respiratory failure J96.01 Acute hypercapnic respiratory failure J96.02 Hyponatremia E87.1 COPD (chronic obstructive pulmonary disease) J44.9 Severe malnutrition E43 Stroke I63.[address] Z96.0
[2025-07-19] MEDS: methylPREDNISolone sod succ 125 mg/2 mL INJ 60 MG IVP (17:55)
[2025-07-19] MEDS: pantoprazole 40 mg SDV IVP (17:56)
--- NOTE | 2025-07-19 20:00 | PC.NURSE ---
Shift summary; Pt remains alert, oriented and very pleasant. He has been more short of breath this shift than yesterday. e remains on 2lpm/NC, his home O2 amount. Sinus tachycardia noted on monitor. His lungs are wheezy today. Until his breathing treatment at 1500 he wanted to tripod on bedside table, laying back in the bed exacerbated his shortness of breath. After 1500 he was able to lie back and nap. he had 1725 urinary cath output. He has a great appetite, eating majority of every meal. Vancomycin IVPB increased to 750mg today. Steroids IVP changed today.
[2025-07-19 20:21] LABS: MRSA PCR OZH (swab) NOT DETECTED (Negative)
[2025-07-20] VITALS (30 sets, daily range): BP systolic 91–199; BP diastolic 39–113; PULSE 81–115; RESP 6–33; TEMP 36.4–36.8; O2SAT 92–100
[2025-07-20] MEDS: HYDROcodone-acetaminophen 5-325 mg Tablet 1 TAB PO ×2 (02:59→20:09)
[2025-07-20 03:41] LABS: Hematocrit 24.9 % (37-53); Hemoglobin 8.20 g/dL (11.27-16.99); Mean Corpuscular HGB Conc 32.9 g/dL (30-55); Mean Corpuscular Hemoglobin 32.8 pg (27-33); Mean Corpuscular Volume 99.6 fl (82-101); Platelet Count 507 10^3/cmm (157-399); Red Blood Count 2.50 10^6/uL (3.85-5.65)
[2025-07-20 03:56] LABS: Alanine Aminotransferase 27 U/L (0-41); Albumin Level 3.5 g/dL (3.5-5.2); Alkaline Phosphatase 165 U/L (40-130); Anion Gap 11.2 (5-19); Aspartate Amino Transferase 19 U/L (0-40); Blood Urea Nitrogen 11 mg/dL (8-23); Calcium 8.6 mg/dL (8.5-10.5); Carbon Dioxide 35 mmol/L (22-29); Chloride 89 mmol/L (98-107); Creatinine Clr Calc Pharmacy 60.8442; Globulin 2.2 g/dL (1.3-4.6); Glucose 126 mg/dL (65-115); Osmolality Calculated 271 mOsm/kg (285-295); Potassium 5.2 mmol/L (3.5-5.1); Sodium 130 mmol/L (136-145); Total Protein 5.7 g/dL (6.6-8.7)
[2025-07-20 04:15] LABS: Slide Review Slide Review Perform
[2025-07-20 04:42] LABS: Absolute Segmented Neutrophil 52.2 10/cmm (1.6-7.1); Band Neutrophils Absolute 4.1 10^3/cmm (0.0-1.2); Total Cells Counted 100 (0-100)
[2025-07-20 04:51] LABS: White Blood Count 58.66 10^3/uL (3.29-11.43)
[2025-07-20] MEDS: heparin 5,000 unit/mL INJ 1 mL 5000 UNIT SUBCUT ×2 (06:18→17:09)
[2025-07-20] MEDS: cefepime 2,000 mg SDV 2000 MG IVP ×3 (07:36→23:23)
--- NOTE | 2025-07-20 13:58 | P.PN_ITS ---
Subjective 2 Subjective: Patient seen in the morning, was sitting comfortably with 2 to 3 L nasal cannula able to breathe in full sentences and was having his breakfast Patient has mild wheezing however no tachypnea or respiratory distress Currently improving and able to cough up secretions requires further chest physiotherapy to clear his secretions. Vitals/I&O/Wt Last Vital Signs Temp 98.3 F 07/20/25 12:00 Pulse 108 H 07/20/25 12:15 Resp 24 H 07/20/25 12:15 BP 118/53 07/20/25 12:00 Pulse Ox 92 07/20/25 12:15 O2 Del Method Nasal Cannula 07/20/25 12:00 O2 Flow Rate 2 07/20/25 12:00 FiO2 35 07/17/25 22:10 07/19/25 07/20/25 07/20/25 22:59 06:59 14:59 Intake Total 490 / 2140 480 / 2620 250 / 250 Output Total 225 / 1725 550 / 2275 750 / 750 Balance 265 / 415 -70 / 345 -500 / -500 Weight last 48 hrs Weight 55.629 kg Weight 55.629 kg Physical Exam 2 Narrative: General: Alert and oriented, sitting comfortably at the edge of the bed having his breakfast with 2 to 3 L nasal cannula saturating 93 to 94% and above able to complete full sentences not in distress patient looks cachectic HEENT: Normocephalic, atraumatic, grossly unremarkable exam Cardio: Slightly, normal S1-S2 without any murmurs, however unable to comment on any extra added sounds due to tachycardia Respiratory: Patient comfortably speaking in full sentences, having mild shallow breathing pattern and bilateral wheezing, mild tachypnea with rate 18-22 however bilateral good air entry comparatively better relatively, no stridor. GI: Abdomen soft, nontender, nondistended, normoactive bowel sounds present all 4 quadrants, Neuro: Gross neurological examination unremarkable Behavior: Appropriate and cooperative Extremities: Adequate palpable pulses, mild trace pedal edema. Urinary Catheter Management: Cuadra: Cath Placed During This Visit: no Reason for Continuing Indwelling Catheter: Chronic Indwelling Urinary Catheter on Admission Data 07/20/25 03:15 07/20/25 03:15 Micro: Microbiology 07/17/25 19:05 Sputum Culture - Final Sputum - Expectorated Sputum A&P Assessment and plan 1. Sepsis: Currently resolving sepsis possible underlying pneumonia Broad-spectrum antibiotics with cefepime and vancomycin to cover any pseudomonal infection with MRSA coverage considering patient current immunocompromise status Lactate series improved Maintain MAP above 65 Maintain oxygen sats in the range of 88 to 92% Adequate chest physiotherapy Intake and output monitoring Monitor and correct any electrolyte dysfunction stepdown to CSU. 2. Pneumonia: Continue Methylpred 60 mg daily Continue nebulizations as scheduled Manual chest physiotherapy Continue broad-spectrum antibiotics with pseudomonal coverage Sputum and blood cultures till date negative Respiratory viral panel is negative Maintain normal hemodynamics 3. Acute hypoxemic respiratory failure: Secondary to pneumonia and underlying sepsis and is currently improving Respiratory viral panel negative Oxygen therapy Rest of the treatment as mentioned above 4. Acute hypercapnic respiratory failure: Patient seems to be in chronic retention since his bicarb is a little on the higher side and the patient is alert Continue to monitor, patient never had BiPAP or CPAP. Patient had BiPAP overnight after admission date and was having mild jessica colored sputum with streaks of blood. To avoid BiPAP at the moment since the patient might be at risk of aspiration versus lung injury. No further bleeding episodes from sputum, currently stable continue to monitor Neurochecks every shift 5. Hyponatremia: Currently improving, encourage oral intake. Nacl gentle hydration to continue Continue to monitor BMP 6. COPD (chronic obstructive pulmonary disease): DuoNebs as scheduled 4 times daily and steroids Broad-spectrum antibiotics as mentioned above 7. Severe malnutrition: Dietitian consult for severe malnourishment 8. Stroke: History of stroke patient on clopidogrel and statins The daughter has medications were reconciled therefore to resume after confirmation and reconciliation 9. Urinary catheter in place: Urinary catheter changed 1 week ago as per the daughter, no cloudiness and the urine looks clear Daughter was concerned about some urinary tract infection, however placed on broad-spectrum antibiotics management patient is being covered. UA and to follow-up Maintain catheter care 10. Hyperkalemia: Patient had potassium of 5.2, to repeat BMP since the patient creatinine is normal and there is no other triggering factor found. Dose of Kayexalate to encourage bowel motion. PDMP PDMP Reviewed: Not Reviewed Attestations 2 Medical Necessity Statement*: Patient will stay overnight for further optimization of his COPD exacerbation leading to acute hypoxemic/hypercapnic on the top of chronic hypoxemic failure requiring escalation of baseline oxygen therapy. Time Spent in Patient Care: 16 - 35 minutes (>than 50% of time sp ent in counselling and/or direct pt care on unit) . Other Attestations: Patient condition has been discussed at length with the patient/family, I have independently reviewed the chart labs imaging/diagnostics/EKG. the goals of care and code status with the patient/family/NOK/legal sales donor recruitment representative, and documented accordingly. The patient/family has been informed about the current condition and further plan of care. Agreed with the plan of care and understood without any language barrier. Every effort was made to ensure accuracy of construction superintendent. Any obvious errors or omissions should be clarified with the author of the document. Coding Level of Care Code 82528 Diagnoses Sepsis A41.9 Pneumonia J18.9 Acute hypoxemic respiratory failure J96.01 Acute hypercapnic respiratory failure J96.02 Hyponatremia E87.1 COPD (chronic obstructive pulmonary disease) J44.9 Severe malnutrition E43 Stroke I63.[address] Z96.0 Hyperkalemia E87.5
[2025-07-20 15:05] LABS: Anion Gap 12.0 (5-19); Blood Urea Nitrogen 13 mg/dL (8-23); Calcium 8.8 mg/dL (8.5-10.5); Carbon Dioxide 36 mmol/L (22-29); Chloride 88 mmol/L (98-107); Creatinine Clr Calc Pharmacy 60.8442; Glucose 136 mg/dL (65-115); Osmolality Calculated 276 mOsm/kg (285-295); Potassium 4.0 mmol/L (3.5-5.1); Sodium 132 mmol/L (136-145)
[2025-07-20] MEDS: methylPREDNISolone sod succ 125 mg/2 mL INJ 60 MG IVP (17:06)
[2025-07-20] MEDS: pantoprazole 40 mg SDV IVP (17:08)
[2025-07-20 18:47] LABS: Glucose Urine UA Negative (Normal); Nitrate Urine Negative (Negative)
[2025-07-20 18:50] LABS: Add Urine Microscopic? YES
[2025-07-20 19:04] LABS: Specific Gravity, Urine 1.032 (1.005-1.030); UA Slide Review UA Slide Review Perf
--- NOTE | 2025-07-20 19:30 | PC.NURSE ---
SHift SUmmary: Uneventful day. Sat on the side of the bed for most of the day. Walked about 50 feet outside of room. remains on 2L nasal cannula (his home baseline). Started on acapella and Incentive spirometer today.
[2025-07-20] MEDS: morphine 4 mg/mL SDV 1 mL 2 MG IVP (21:33)
[2025-07-21] VITALS (11 sets, daily range): BP systolic 139–175; BP diastolic 67–81; PULSE 81–92; RESP 16–28; TEMP 36.3–36.7; O2SAT 96–100
--- NOTE | 2025-07-21 03:29 | P.MISC_ITS ---
Miscellaneous Note Purpose of Documentation: The is in need to move this non-ICU patient to medical floor to make room for a STEMI alert patient coming in from emergency department Note: I have written a transfer order from ICU 01 to [facility] floor
[2025-07-21 04:55] LABS: Hematocrit 27.0 % (37-53); Hemoglobin 8.70 g/dL (11.27-16.99); Mean Corpuscular HGB Conc 32.2 g/dL (30-55); Mean Corpuscular Hemoglobin 32.1 pg (27-33); Mean Corpuscular Volume 99.6 fl (82-101); Nucleated Red Blood Cells % 0 %; Platelet Count 341 10^3/cmm (157-399); Red Blood Count 2.71 10^6/uL (3.85-5.65)
[2025-07-21 05:15] LABS: Alanine Aminotransferase 38 U/L (0-41); Albumin Level 3.7 g/dL (3.5-5.2); Alkaline Phosphatase 171 U/L (40-130); Anion Gap 13.1 (5-19); Aspartate Amino Transferase 24 U/L (0-40); Blood Urea Nitrogen 14 mg/dL (8-23); Calcium 8.8 mg/dL (8.5-10.5); Carbon Dioxide 35 mmol/L (22-29); Chloride 89 mmol/L (98-107); Creatinine Clr Calc Pharmacy 60.8442; Globulin 2.1 g/dL (1.3-4.6); Glucose 102 mg/dL (65-115); Osmolality Calculated 275 mOsm/kg (285-295); Potassium 5.1 mmol/L (3.5-5.1); Sodium 132 mmol/L (136-145); Total Protein 5.8 g/dL (6.6-8.7)
[2025-07-21 05:30] LABS: Slide Review Slide Review Perform; White Blood Count 42.08 10^3/uL (3.29-11.43)
[2025-07-21] MEDS: heparin 5,000 unit/mL INJ 1 mL 5000 UNIT SUBCUT (06:19)
[2025-07-21] MEDS: cefepime 2,000 mg SDV 2000 MG IVP (06:32)
[2025-07-21] MEDS: HYDROcodone-acetaminophen 5-325 mg Tablet 1 TAB PO (09:09)
[2025-07-21 10:45] LABS: Potassium 4.0 mmol/L (3.5-5.1)
--- NOTE | 2025-07-21 12:01 | PC.SOCIAL ---
IMM Updated Updated pt on IMM. No questions voiced. Provided pt a copy. Initialed, dated, & timed copy in chart.
--- NOTE | 2025-07-21 12:52 | P.DS_ITS ---
Discharge Providers Date of Admission: 07/17/25 16:56 Date of Discharge: July 21, 2025 Attending Provider at Admission: Alma Landers MD Attending Provider at Discharge: Alma Landers MD Primary Care Provider: Christian Beaulieu MD Diagnoses at Discharge Discharge Diagnosis 1. Sepsis: 2. Pneumonia: 3. Acute hypoxemic respiratory failure: 4. Acute hypercapnic respiratory failure: 5. Hyponatremia: 6. COPD (chronic obstructive pulmonary disease): 7. Severe malnutrition: 8. Stroke: 9. Urinary catheter in place: 10. 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 The patient also takes a shot to improve his white blood cell count which improved to 10-11,000 after the shot but however at this visit it was found to have 50,000 however the patient was taking oxycodone containing acetaminophen therefore there is a question if the patient was having active fever or not. The patient did not take any flu shot. The patient is being taken care by his family in different cities and he traveled as well from [facility] to [place]. During the last week he has been getting gradual shortness of breath without any leg swellings or any orthopnea or PND. The patient also reported feeling tired. And he is on home oxygen of 2 L but he was desaturating in 80s therefore the daughter increased to 4 L and was able to have good saturation readings. There was no chest pain chest pressure or increase in diarrhea or skin rash. Rest of the review of system is unremarkable Hospital Course Hospital Course The patient was admitted as a case of sepsis secondary to underlying pneumonia that resolved with hydration and broad-spectrum antibiotics with cefepime and vancomycin. CTA did not show any signs of pulmonary embolism. He received chest physiotherapy, nebulization and steroids for possible underlying COPD exacerbation element as well. Sputum and blood cultures were reviewed and were negative. He came with indwelling urinary catheter which was changed recently, his UA did not show signs of infection but was also kept on broad-spectrum antibiotics during his stay. Respiratory viral panel was also negative. Jahaira juarez also received oxygen therapy as per protocol, his hyponatremia resolved after hydration. Dietitian was consulted for severe malnourishment. The patient had hyperkalemia initially that also resolved after correction. The patient was sent on broad-spectrum antibiotics and short course of steroids with further follow-ups at his own primary and oncology since he has been visiting care. The family was made aware about the plan. Adequate medication reconciliation and referrals were done. Patient condition has been discussed at length with the patient/family, I have independently reviewed the chart labs imaging/diagnostics/EKG. the goals of care and code status with the patient/family/NOK/legal national sales representative, and documented accordingly. The management has been done according to the current clinical condition with respect to patient goals of care and based on recommendations/guidelines. The patient/family has been informed about the current condition and further plan of care. Agreed with the plan of care and understood without any language barrier. Every effort was made to ensure accuracy of closing specialist. Any obvious errors or omissions should be clarified with the author of the document. Physical Exam Narrative: General: Alert and oriented, sitting comfortably at the edge of the bed having his breakfast with 2 to 3 L nasal cannula saturating 93 to 94% and above able to complete full sentences not in distress patient looks cachectic HEENT: Normocephalic, atraumatic, grossly unremarkable exam Cardio: Slightly, normal S1-S2 without any murmurs, however unable to comment on any extra added sounds due to tachycardia Respiratory: Patient comfortably speaking in full sentences, having mild shallow breathing pattern and bilateral wheezing, mild tachypnea with rate 18-22 however bilateral good air entry comparatively better relatively, no stridor. GI: Abdomen soft, nontender, nondistended, normoactive bowel sounds present all 4 quadrants, Neuro: Gross neurological examination unremarkable Behavior: Appropriate and cooperative Extremities: Adequate palpable pulses, mild trace pedal edema. Urinary Catheter Management: Cuadra: Cath Placed During This Visit: no Reason for Continuing Indwelling Catheter: Chronic Indwelling Urinary Catheter on Admission Discharge Data Studies Completed and Pending Completed Studies During Hospitalization Category Date Time Status CT angio chest PE protcl [id number] Stat Cat Scan 07/17/25 13:41 Completed XR chest 1V portable [id number] Stat Exams 07/17/25 12:49 Completed Pending at discharge Category Date Time Status Blood Culture Stat Lab 07/17/25 13:03 Results Urine Culture Stat Lab 07/20/25 17:35 Received Radiology Impressions Chest X-Ray 07/17/25 12:49 IMPRESSION: Left hilar prominence could represent lymphadenopathy, infection, or possibly neoplasm. Recommend CT for further evaluation. Chest CTA 07/17/25 13:41 IMPRESSION: 1. No evidence of pulmonary embolism. 2. A 4.7 x 3.8 x 5.1 cm (AP by TR by CC) left hilar mass, highly concerning for malignancy. Recommend nonemergent follow-up PET-CT and tissue sampling. 3. A 1.1 x 0.8 cm solid nodule in the right lung apex. 4. A 4 mm nodule in the right middle lobe. 5. Multiple ill-defined hypodense lesions in the partially visualized liver measuring up to 3.0 cm, concerning for metastases. 6. A 2.2 cm right adrenal gland nodule, concerning for metastasis. Laboratory Results WBC 42.08 10^3/uL (3.29-11.43) H* 07/21/25 04:35 RBC 2.71 10^6/uL (3.85-5.65) L 07/21/25 04:35 Hgb 8.70 g/dL (11.27-16.99) L 07/21/25 04:35 Hct 27.0 % (37-53) L 07/21/25 04:35 MCV 99.6 fl (82-101) 07/21/25 04:35 MCH 32.1 pg (27-33) 07/21/25 04:35 MCHC 32.2 g/dL (30-55) 07/21/25 04:35 RDW 15.9 % (12.1-15.1) H 07/21/25 04:35 Plt Count 341 10^3/cmm (157-399) D 07/21/25 04:35 MPV 8.9 fL (7.4-10.4) 07/21/25 04:35 Neut % (Auto) 87.9 % 07/21/25 04:35 Lymph % (Auto) 3.1 % 07/21/25 04:35 Cambria % (Auto) 8.1 % 07/21/25 04:35 Eos % (Auto) 0.0 % 07/21/25 04:35 Baso % (Auto) 0.0 % 07/21/25 04:35 Neut # (Auto) 36.99 10^3/uL (1.8-7.7) H 07/21/25 04:35 Lymph # (Auto) 1.3 10^3/uL (0.8-4.8) 07/21/25 04:35 Cambria # (Auto) 3.4 10^3/uL (0.2-0.9) H 07/21/25 04:35 Eos # (Auto) 0.0 10^3/uL (0.0-0.8) 07/21/25 04:35 Baso # (Auto) 0.0 10^3/uL (0.0-0.1) 07/21/25 04:35 Nucleated RBC % (auto) 0 % 07/21/25 04:35 Total Counted 100 (0-100) 07/20/25 03:15 Atypical Lymphs % Not Reportable 07/20/25 03:15 Absolute Neutrophils 56.3 10^3/cmm (1.4-6.5) H 07/20/25 03:15 Segmented Neutrophils 89 % 07/20/25 03:15 Band Neutrophils 7.0 % 07/20/25 03:15 Lymphocytes (Manual) 1 % 07/20/25 03:15 Monocytes (Manual) 2.0 % 07/20/25 03:15 Absolute Monocytes 1.2 10^3/cmm (0.1-0.6) H 07/20/25 03:15 Eosinophils (Manual) 0 % 07/20/25 03:15 Absolute Eosinophils 0.0 10^3/cmm (0.0-0.7) 07/20/25 03:15 Basophils (Manual) 0.0 % 07/20/25 03:15 Absolute Basophils 0.0 10^3/cmm (0.0-0.2) 07/20/25 03:15 Myelocytes 1.0 % 07/20/25 03:15 Nucleated RBCs # 0.0 /100WBC 07/21/25 04:35 Platelet Estimate Increased (Normal) 07/20/25 03:15 Specimen Type Arterial 07/18/25 06:15 Sample Site Radial, left 07/18/25 06:15 ABG pH 7.40 (7.35-7.45) 07/18/25 06:15 ABG pCO2 57.8 mmHg (35-45) H 07/18/25 06:15 ABG pO2 78.8 mmHg (80.0-100.0) L 07/18/25 06:15 ABG PO2/FiO2 Ratio 363 07/17/25 13:00 ABG HCO3 36.0 mmol/L (22-26) H 07/18/25 06:15 ABG O2 Saturation 96.7 07/18/25 06:15 ABG Base Excess 9.9 mmol/L (-2.0-2.0) H 07/18/25 06:15 Fuentes Test Pos 07/18/25 06:15 A-a O2 Gradient 0.1 mmHg (5-10) L 07/18/25 06:15 Hematocrit 27.5 % (42-52) L 07/18/25 06:15 Hgb O2 Saturation 95.1 % (95-100) 07/18/25 06:15 Carboxyhemoglobin 1.4 %THgb (0.4-20.1) 07/18/25 06:15 Methemoglobin 0.2 % (0.4-1.5) L 07/18/25 06:15 Total Hemoglobin 9.0 g/dL (14-18) L 07/18/25 06:15 Sodium 131.0 mmol/L (131-143) 07/18/25 06:15 Potassium 4.4 mmol/L (3.5-5.0) 07/18/25 06:15 Glucose 130.0 mg/dL (70-115) H 07/18/25 06:15 Ionized Calcium 1.2 mmol/L (1.1-1.4) 07/18/25 06:15 O2 Delivery Device Nc 07/18/25 06:15 O2 Liters/Min 2.0 % 07/18/25 06:15 FiO2 36.0 % 07/17/25 13:00 First Aid Attendant ID Roman 07/18/25 06:15 Sodium 132 mmol/L (136-145) L 07/21/25 04:35 Potassium 4.0 mmol/L (3.5-5.1) 07/21/25 10:15 Chloride 89 mmol/L (98-107) L 07/21/25 04:35 Carbon Dioxide 35 mmol/L (22-29) H 07/21/25 04:35 Anion Gap 13.1 (5-19) 07/21/25 04:35 BUN 14 mg/dL (8-23) 07/21/25 04:35 Creatinine 0.4 mg/dL (0.7-1.2) L 07/21/25 04:35 GFR Calculation Not Reportable 07/21/25 04:35 Glucose 102 mg/dL (65-115) 07/21/25 04:35 POC Glucose 115 mg/dL (70-110) H 07/17/25 19:32 Calculated Osmolality 275 mOsm/kg (285-295) L 07/21/25 04:35 Lactic Acid 2.1 mmol/L (0.5-2.2) 07/17/25 12:55 Lactic Acid (Sepsis) 1.0 mmol/L (0.5-2.2) 07/17/25 15:02 Calcium 8.8 mg/dL (8.5-10.5) 07/21/25 04:35 Phosphorus 3.7 mg/dL (2.5-4.5) 07/17/25 17:06 Magnesium 2.1 mg/dL (1.7-2.3) 07/18/25 03:55 Total Bilirubin 0.2 mg/dL (0.15-1.2) 07/21/25 04:35 AST 24 U/L (0-40) 07/21/25 04:35 ALT 38 U/L (0-41) 07/21/25 04:35 Alkaline Phosphatase 171 U/L (40-130) H 07/21/25 04:35 Creatine Kinase 42 U/L (39-308) 07/17/25 12:55 Troponin T Baseline 17 ng/L (0-15) H 07/17/25 12:55 Troponin T 120 Minute 16.81 ng/L (0-15) H 07/17/25 15:02 Delta Troponin T -0.19 ABS# (0-10) L 07/17/25 15:02 Troponin T Hi Sens 6Hr 17.76 ng/L (0-15) H 07/17/25 19:05 Troponin T Hi Sens 6Hr Delta 0.76 ng/L (0-12) 07/17/25 19:05 NT-Pro-B Natriuret Pep 123 pg/mL (0-450) 07/17/25 12:55 NT-Pro-B Natriuret Pep 123 pg/mL (0-450) 07/17/25 12:55 Total Protein 5.8 g/dL (6.6-8.7) L 07/21/25 04:35 Albumin 3.7 g/dL (3.5-5.2) 07/21/25 04:35 Globulin 2.1 g/dL (1.3-4.6) 07/21/25 04:35 Procalcitonin 0.13 ng/mL (0-0.5) 07/17/25 12:55 Urine Color Yellow (Yellow) 07/20/25 17:35 Urine Appearance Cloudy (CLEAR) A 07/20/25 17:35 Urine pH 5.5 (5-7) 07/20/25 17:35 Ur Specific Davenport 1.032 (1.005-1.030) H 07/20/25 17:35 Urine Protein 1+ (Negative) A 07/20/25 17:35 Urine Glucose (UA) Negative (Normal) 07/20/25 17:35 Urine Ketones Trace (Negative) 07/20/25 17:35 Urine Blood Non-haemolysed trace (Negative) 07/20/25 17:35 Urine Nitrate Negative (Negative) 07/20/25 17:35 Urine Bilirubin Negative (Negative) 07/20/25 17:35 Urine Urobilinogen 0.2 mg/dL (Negative) 07/20/25 17:35 Ur Leukocyte Esterase 1+ (Negative) A 07/20/25 17:35 Urine RBC 11-20 /hpf (0-2) H 07/20/25 17:35 Urine WBC 21-50 /hpf (0-5) H 07/20/25 17:35 Ur Squamous Epith Cells 6-10 /hpf (0-5) 07/20/25 17:35 Calcium Oxalate Crystal 5-10 /hpf H 07/20/25 17:35 Amorphous Sediment Not Reportable 07/20/25 17:35 Urine Bacteria None seen /hpf (NONE) 07/20/25 17:35 Hyaline Casts 19.83 /lpf 07/20/25 17:35 Nasal MRSA (PCR) Not detected (Negative) 07/19/25 18:10 Vancomycin Trough 7.6 ug/mL (10-15) L 07/21/25 04:35 Adenovirus (PCR) Not detected (NOT DETECT) 07/18/25 17:55 C. pneumoniae DNA (PCR) Not detected (NOT DETECT) 07/18/25 17:55 Coronavirus 229E (PCR) Not detected (NOT DETECT) 07/18/25 17:55 Human Metapneumovir PCR Not detected (NOT DETECT) 07/18/25 17:55 Influenza A (H1) PCR Not detected (NOT DETECT) 07/18/25 17:55 Influenza A (PCR) Negative (Negative) 07/17/25 12:59 Influ A (H1/09) PCR Not detected (NOT DETECT) 07/18/25 17:55 Influenza A (H3) PCR Not detected (NOT DETECT) 07/18/25 17:55 Influenza Type A (PCR) Not detected (NOT DETECT) 07/18/25 17:55 Influenza Type B (PCR) Not detected (NOT DETECT) 07/18/25 17:55 M. pneumoniae (PCR) Not detected (NOT DETECT) 07/18/25 17:55 Parainfluenza 1 (PCR) Not detected (NOT DETECT) 07/18/25 17:55 Parainfluenza 2 (PCR) Not detected (NOT DETECT) 07/18/25 17:55 Parainfluenza 3 (PCR) Not detected (NOT DETECT) 07/18/25 17:55 Parainfluenza 4 (PCR) Not detected (NOT DETECT) 07/18/25 17:55 RSV (PCR) Negative (Negative) 07/17/25 12:59 RSV Type A (PCR) Not detected (NOT DETECT) 07/18/25 17:55 RSV Type B (PCR) Not detected (NOT DETECT) 07/18/25 17:55 Entero/Rhino (PCR) Not detected (NOT DETECT) 07/18/25 17:55 SARS-CoV-2 (PCR) Not detected (NOT DETECT) 07/18/25 17:55 Vitals Last Vital Signs Temp 97.9 F 07/21/25 11:52 Pulse 92 07/21/25 11:52 Resp 16 07/21/25 11:52 BP 150/73 07/21/25 11:52 Pulse Ox 97 07/21/25 11:52 O2 Del Method Nasal Cannula 07/21/25 11:52 O2 Flow Rate 2 07/21/25 07:45 FiO2 35 07/17/25 22:10 Discharge Plan Discharge Patient Disposition: Home Health Service Condition: Stable Prescriptions: New alum-mag hydroxide-simeth [Mag-Al Plus] 200-200-20 mg/5 mL Suspension 15 ml PO Q6H PRN (Reason: Indigestion) 60 Days Qty: 3000 0RF levofloxacin 750 mg tablet 750 mg PO DAILY 10 Days Qty: 10 0RF prednisone 20 mg tablet 40 mg PO DAILY 3 Days Qty: 6 0RF Continued alprazolam 0.5 mg tablet 0.5 mg PO TID PRN (Reason: Aniety) furosemide 40 mg tablet 40 mg PO DAILY atorvastatin 20 mg tablet 20 mg PO BEDTIME ipratropium-albuterol 0.5 mg-3 mg(2.5 mg base)/3 mL solution for nebulization 3 ml INHALATION Q6H PRN (Reason: sob) trazodone 50 mg tablet 50 mg PO DAILY PRN (Reason: Sleep) hydrocodone-acetaminophen 5-325 mg tablet 1 tab PO BID PRN (Reason: Pain, Moderate) clopidogrel 75 mg tablet 75 mg PO DAILY tamsulosin 0.4 mg capsule 0.4 mg PO BEDTIME benzonatate 100 mg capsule 100 mg PO DAILY mirtazapine 7.5 mg tablet 7.5 mg PO BEDTIME B12 5,000-100 mcg Lozenge 1 arnold SUBLINGUAL DAILY guaifenesin [Mucinex] 600 mg tablet extended release 12hr 1,200 mg PO BID Discharge Order = DC NOW: Discharge Order (Routine); Ordered 07/21/25 Ordered By: Alma Landers Other Ambulatory Orders: DME: Oxygen (Order) Location: None Selected Ordered By: Alma Landers Referrals: [facility] [Outside] Chema Angeles MD [Physician, Pulmonology] - 08/02/25 2:45 pm Referral Note: s/p non sq cell carcinoma on treatment, and post discharge for possible pneum and COPD exacerbation for further follow up and optimisation Virgil Beaulieu MD [Primary Care Provider, Internal Medicine] - 07/27/25 1:15 pm Referral Note: Discharge Diet: Advance as tolerated, Usual diet, Cardiac, Diabetic and Low Cholesterol Discharge Activity: Resume usual activity and Limit activity as instructed Patient Instructions: Prednisone (By mouth), Levofloxacin (By mouth) (Levaquin, Levaquin Leva-raven), COPD Stoplight, Opioid Safety, Pneumonia Stoplight, Patient Portal & Petey Instructions Discharge Attestations Time Spent in Discharge Care*: greater than 30 min Specific Discharge Activities: educating patient, educating and/or supporting family/caregiver, discussing with pcp/other providers, discussing with egg caser/social workers/dc planners, documenting/other paperwork and evaluating patient/reviewing data Time Spent in Smoking Cessation: 3 to 10 minutes Status at Discharge: Cognitive status at discharge: cognitively intact , Behavioral status at discharge: cooperative , Functional status at discharge: other assisted ambulation , Overall status at discharge: patient is back to baseline Quality Metrics Clinical Quality Measures [ No reported AMI, CVA or VTE this stay] Coding Level of Care Code 14630 Diagnoses Sepsis A41.9 Pneumonia J18.9 Acute hypoxemic respiratory failure J96.01 Acute hypercapnic respiratory failure J96.02 Hyponatremia E87.1 COPD (chronic obstructive pulmonary disease) J44.9 Severe malnutrition E43 Stroke I63.[address] Z96.0 Hyperkalemia E87.5
--- OUTSIDE RECORDS SUMMARY | 2025-07-31 19:00 | XMS_ITS | Clinical Summary ---
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 Active 09-23 00:00: 00 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 Active 09-23 00:00: 00 SECONDARY MALIGNANT NEOPLASM OF BONE Active 09-23 00:00: 00 CHRONIC OBSTRUCTIVE PULMONARY DISEASE W (ACUTE) EXACERBATION Active 09-23 00:00: 00 PNEUMONITIS DUE TO INHALATION OF FOOD AND VOMIT Active 09-23 00:00: 00 UNSPECIFIED SEVERE PROTEIN-DENISE UMAIR MALNUTRITION Active 09-23 00:00: 00 CHRONIC RESPIRATORY FAILURE WITH HYPOXIA Active 09-23 00:00: 00 BENIGN PROSTATIC HYPERPLASIA WITH LOWER URINARY TRACT SYMP Active 09-23 00:00: 00 OTHER RETENTION OF URINE Active 09-23 00:00: 00 ANXIETY DISORDER, UNSPECIFIED Active 09-23 00:00: 00 GASTRO-ESOPH AGEAL REFLUX DISEASE WITHOUT ESOPHAGITIS Active 09-23 00:00: 00 ESSENTIAL (PRIMARY) HYPERTENSION Active 09-23 00:00: 00 HYPO-OSMOLAL ITY AND HYPONATREMIA Active 09-23 00:00: 00 OTHER CONSTIPATION Active 09-23 00:00: 00 ANEMIA DUE TO ANTINEOPLAST IC CHEMOTHERAPY Active 09-23 00:00: 00 ATHSCL HEART DISEASE OF [place] CORONARY ARTERY W/O ANG PCTRS Active 09-23 00:00: 00 ALKALOSIS Active 09-23 00:00: 00 HYPERKALEMIA Active 09-23 00:00: 00 HEADACHE, UNSPECIFIED Active 09-23 00:00: 00 ELEVATED WHITE BLOOD CELL COUNT, UNSPECIFIED Active 09-23 00:00: 00 PRSNL HX OF TIA (TIA), AND CEREB INFRC W/O RESID DEFICITS Active 09-23 00:00: 00 PERSONAL HISTORY OF NICOTINE DEPENDENCE Active 09-23 00:00: 00 BOATHOUSE KEEPER (CURRENT) USE OF ANTITHROMBOT ICS/ANTIPLAT ELETS Active 09-23 00:00: 00 DEPENDENCE ON SUPPLEMENTAL OXYGEN Active 09-23 00:00: 00 BOATHOUSE KEEPER (CURRENT) USE OF INHALED STEROIDS Active 09-23 00:00: 00 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 Ordering Clinician Indication Dosage Frequency Signature (SIG) Comments Components alprazolam 0.5 mg tablet 06-03 00:00: 00 Yes [id number] 1 tablet EVERY 6 HOURS 1 tablet EVERY 6 HOURS (route: oral) Med Classific ation: Central Nervous System Agents atorvastati n 80 mg tablet 06-03 00:00: 00 Yes [id number] 1 tablet DAILY 1 tablet DAILY (route: oral) Med Classific ation: Cardiovas cular Therapy Agents B-Complex tablet 06-03 00:00: 00 Yes [id number] 1 tablet DAILY 1 tablet DAILY (route: oral) Med Classific ation: Electroly te Balance-N utritiona l Products benzonatate 200 mg capsule 06-03 00:00: 00 Yes [id number] 1 capsule 3 TIMES DAILY 1 capsule 3 TIMES DAILY (route: oral) Med Classific ation: Respirato ry Therapy Agents clopidogrel 75 mg tablet 06-03 00:00: 00 Yes [id number] 1 tablet DAILY 1 tablet DAILY (route: oral) Med Classific ation: Hematolog ical Agents ferrous gluconate 324 mg (37.5 mg iron) tablet 06-03 00:00: 00 Yes [id number] 1 tablet DAILY 1 tablet DAILY (route: oral) Med Classific ation: Electroly te Balance-N utritiona l Products folic acid 1 mg tablet 06-03 00:00: 00 Yes [id number] 1 tablet DAILY 1 tablet DAILY (route: oral) Med Classific ation: Electroly te Balance-N utritiona l Products furosemide 40 mg tablet 06-03 00:00: 00 Yes [id number] 1 tablet DAILY 1 tablet DAILY (route: oral) Med Classific ation: Cardiovas cular Therapy Agents hydrocodone 5 mg-acetamin ophen 325 mg tablet 06-03 00:00: 00 Yes [id number] 1 tablet EVERY 4 HOURS 1 tablet EVERY 4 HOURS (route: oral) Med Classific ation: Analgesic , Anti-infl ammatory or Antipyret ic ipratropium 0.5 mg-albutero l 3 mg (2.5 mg base)/3 mL nebulizatio n soln 06-03 00:00: 00 Yes [id number] 1 mL EVERY 6 HOURS 1 mL EVERY 6 HOURS (route: inhalation ) Med Classific ation: Respirato ry Therapy Agents Lidoderm 5 % topical patch 06-03 00:00: 00 Yes [id number] 1 adhesiv e patch, medicat ed DIRECTED 1 adhesive patch, medicated DIRECTED (route: topical) Med Classific ation: Dermatolo gical Mucinex 600 mg tablet, extended release 06-03 00:00: 00 Yes [id number] 2 tablet 2 TIMES DAILY 2 tablet 2 TIMES DAILY (route: oral) Med Classific ation: Respirato ry Therapy Agents naloxone 4 mg/actuatio n nasal spray 06-03 00:00: 00 Yes [id number] Per instruc tions NEEDED Per instructio ns NEEDED (route: nasal) Med Classific ation: Antidotes and other Reversal Agents ondansetron HCl 8 mg tablet 06-03 00:00: 00 Yes [id number] 1 tablet EVERY 6 HOURS 1 tablet EVERY 6 HOURS (route: oral) Med Classific ation: Gastroint estinal Therapy Agents tamsulosin 0.4 mg capsule 06-03 00:00: 00 Yes [id number] 2 capsule DAILY 2 capsule DAILY (route: oral) Med Classific ation: Genitouri nary Therapy Thera-M 9 mg iron-400 mcg tablet 06-03 00:00: 00 Yes [id number] 1 tablet DAILY 1 tablet DAILY (route: oral) Med Classific ation: Electroly te Balance-N utritiona l Products thiamine HCl (vitamin B1) 100 mg tablet 06-03 00:00: 00 Yes [id number] 1 tablet DAILY 1 tablet DAILY (route: oral) Med Classific ation: Electroly te Balance-N utritiona l Products Trelegy Ellipta 100 mcg-62.5 mcg-25 mcg powder for inhalation 06-03 00:00: 00 Yes [id number] 1 inhalat ion DAILY 1 inhalation DAILY (route: inhalation ) Med Classific ation: Respirato ry Therapy Agents Vitamin D3 25 mcg (1,000 unit) tablet 06-03 00:00: 00 Yes [id number] 1 tablet DAILY 1 tablet DAILY (route: oral) Med Classific ation: Electroly te Balance-N utritiona l Products oxygen gas for inhalation 06-07 00:00: 00 Yes [id number] 2 Liter O2 - CONTINUOUS 2 Liter O2 - CONTINUOUS (route: inhalation ) Med Classific ation: Medical Supplies and Durable Medical Equipment (DME) Vital Signs Vital Name Observation Time Observation Value Commen ts Temperature 2025-07-07 15:35:00.000 97.2 [degF] Temperature 2025-07-07 08:07:00.000 97.7 [degF] Temperature 2025-06-30 15:38:00.000 97.4 [degF] Temperature 2025-06-30 12:02:00.000 97.8 [degF] Temperature 2025-06-21 08:55:00.000 98.1 [degF] Temperature 2025-06-17 12:48:00.000 98.9 [degF] Temperature 2025-06-14 10:57:00.000 97.5 [degF] Temperature 2025-06-09 13:03:00.000 97 [degF] Temperature 2025-06-08 13:39:00.000 97.7 [degF] Temperature 2025-06-03 11:25:00.000 97 [degF] BMI (%) 2025-06-03 11:20:12.000 15 kg/m2 Height 2025-06-03 11:20:04.000 72 [in_us] Pulse 2025-07-07 15:35:00.000 100 /min Pulse 2025-07-07 08:07:00.000 96 /min Pulse 2025-06-30 15:38:00.000 79 /min Pulse 2025-06-30 12:02:00.000 82 /min Pulse 2025-06-21 08:55:00.000 99 /min Pulse 2025-06-17 12:48:00.000 89 /min Pulse 2025-06-14 10:57:00.000 98 /min Pulse 2025-06-09 13:03:00.000 105 /min Pulse 2025-06-08 13:39:00.000 98 /min Pulse 2025-06-03 11:25:00.000 98 /min O2 Saturation (%) 2025-07-07 15:35:00.000 95 % O2 Saturation (%) 2025-07-07 08:07:00.000 94 % O2 Saturation (%) 2025-06-30 15:38:00.000 96 % O2 Saturation (%) 2025-06-30 12:02:00.000 91 % O2 Saturation (%) 2025-06-21 08:55:00.000 93 % O2 Saturation (%) 2025-06-17 12:48:00.000 95 % O2 Saturation (%) 2025-06-14 10:57:00.000 96 % O2 Saturation (%) 2025-06-08 13:39:00.000 96 % O2 Saturation (%) 2025-06-03 11:25:00.000 95 % Respirations 2025-07-07 15:35:00.000 18 /min Respirations 2025-07-07 08:07:00.000 19 /min Respirations 2025-06-30 15:38:00.000 16 /min Respirations 2025-06-30 12:02:00.000 18 /min Respirations 2025-06-21 08:55:00.000 18 /min Respirations 2025-06-17 12:48:00.000 18 /min Respirations 2025-06-14 10:57:00.000 18 /min Respirations 2025-06-09 13:03:00.000 20 /min Respirations 2025-06-08 13:39:00.000 18 /min Respirations 2025-06-03 11:25:00.000 19 /min Weight (lbs) 2025-06-09 13:03:00.000 120 [lb_av] Weight (lbs) 2025-06-03 11:20:12.000 115 [lb_av] Systolic Blood Pressure 2025-07-07 15:35:00.000 138 mm [Hg] Systolic Blood Pressure 2025-07-07 08:12:00.000 141 mm [Hg] Systolic Blood Pressure 2025-06-30 15:38:00.000 127 mm [Hg] Systolic Blood Pressure 2025-06-30 12:02:00.000 127 mm [Hg] Systolic Blood Pressure 2025-06-21 08:55:00.000 108 mm [Hg] Systolic Blood Pressure 2025-06-17 12:48:00.000 123 mm [Hg] Systolic Blood Pressure 2025-06-14 10:57:00.000 107 mm [Hg] Systolic Blood Pressure 2025-06-09 13:03:00.000 134 mm [Hg] Systolic Blood Pressure 2025-06-08 13:39:00.000 106 mm [Hg] Systolic Blood Pressure 2025-06-03 11:27:00.000 148 mm [Hg] Diastolic Blood Pressure 2025-07-07 15:35:00.000 76 mm [Hg] Diastolic Blood Pressure 2025-07-07 08:12:00.000 93 mm [Hg] Diastolic Blood Pressure 2025-06-30 15:38:00.000 63 mm [Hg] Diastolic Blood Pressure 2025-06-30 12:02:00.000 71 mm [Hg] Diastolic Blood Pressure 2025-06-21 08:55:00.000 69 mm [Hg] Diastolic Blood Pressure 2025-06-17 12:48:00.000 60 mm [Hg] Diastolic Blood Pressure 2025-06-14 10:57:00.000 59 mm [Hg] Diastolic Blood Pressure 2025-06-09 13:03:00.000 60 mm [Hg] Diastolic Blood Pressure 2025-06-08 13:39:00.000 66 mm [Hg] Diastolic Blood Pressure 2025-06-03 11:27:00.000 73 mm [Hg] Plan of Treatment Planned Activity Planned Date Details Comments Future Scheduled Test PHYSICAL T HERAPIST TO EVALUATE CLIENT FOR PT SERVICES AND DEVELOP PLAN OF CARE FOR PHYSICIAN SIGNATURE TO INCLUDE PHYSICAL ASSESSMENT, ESTABLISHMENT OF A PLAN OF TREATMENT OF MALIGNANT 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 PHYSICAL THERAPIST TO PROVIDE NECESSARY TREATMENT/MODALITIES TO ADDRESS THE PATIENT S REHABILITATION, CHURCH, MAINTENANCE NEEDS. 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 PHYSICAL THERAPIST TO PROVIDE NECESSARY TREATMENT/MODALITIES TO ADDRESS THE PATIENT S REHABILITATION, CHURCH, MAINTENANCE NEEDS. TOTAL NUMBER OF PROJECTED THERAPY VISITS FOR EPISODE: 8] Future Scheduled Test RN TO COMFORT HA PATIENT SECONDARY TO DEFICITS/CONCERNS FOUND DURING EVALUATION [code = RN TO EVALUATE PATIENT SECONDARY TO DEFICITS/CONCERNS FOUND DURING EVALUATION] Future Scheduled Test PHYSICAL T HERAPIST TO EVALUATE PATIENT SECONDARY TO FUNCTIONAL DEFICITS/SAFETY CONCERNS. [code = PHYSICAL THERAPIST TO EVALUATE PATIENT SECONDARY TO FUNCTIONAL DEFICITS/SAFETY CONCERNS.] Future Scheduled Test PHYSICAL T HERAPIST TO ASSESS BEST PRACTICE INTERVENTIONS TO ASSIST PATIENTS TO IMPROVE OR STABILIZE MEDICAL STATUS AND PREVENT RE-HOSPITALIZATION. MEASURES INCLUDING REVIEW AND IDENTIFICATION OF CONCERNS FOR THE FOLLOWING AREAS:DRUG REGIMEN, ENVIRONMENTAL SAFETY ISSUES AND FALLS, PRESSURE ULCERS, PAIN, AND DISEASE MANAGEMENT. [code = PHYSICAL THERAPIST TO ASSESS BEST PRACTICE INTERVENTIONS TO ASSIST PATIENTS TO IMPROVE OR STABILIZE MEDICAL STATUS AND PREVENT RE-HOSPITALIZATION. MEASURES INCLUDING REVIEW AND IDENTIFICATION OF CONCERNS FOR THE FOLLOWING AREAS:DRUG REGIMEN, ENVIRONMENTAL SAFETY ISSUES AND FALLS, PRESSURE ULCERS, PAIN, AND DISEASE MANAGEMENT.] Future Scheduled Test PHYSICAL T HERAPY TO ESTABLISH /UPGRADE/DOWNGRADE THERAPEUTIC EXERCISE PROGRAM AND INSTRUCT PATIENT/CAREGIVER ON EXERCISE PRECAUTIONS WITH WRITTEN HOME PROGRAM. MAY INCLUDE :AAROM, AROM, RROM APPROPRIATE TO IMPROVE FUNCTIONAL STRENGTH AND RANGE OF MOTION. [code = PHYSICAL THERAPY TO ESTABLISH /UPGRADE/DOWNGRADE THERAPEUTIC EXERCISE PROGRAM AND INSTRUCT PATIENT/CAREGIVER ON EXERCISE PRECAUTIONS WITH WRITTEN HOME PROGRAM. MAY INCLUDE :AAROM, AROM, RROM APPROPRIATE TO IMPROVE FUNCTIONAL STRENGTH AND RANGE OF MOTION.] Future Scheduled Test PHYSICAL T HERAPY TO INSTRUCT PATIENT/CAREGIVER ON SAFE TRANSFER TECHNIQUES USING PROPER BODY MECHANICS AND EQUIPMENT. [code = PHYSICAL THERAPY TO INSTRUCT PATIENT/CAREGIVER ON SAFE TRANSFER TECHNIQUES USING PROPER BODY MECHANICS AND EQUIPMENT.] Future Scheduled Test PHYSICAL T HERAPY TO INSTRUCT PATIENT/CAREGIVER ON GAIT TRAINING TECHNIQUES USING APPROPRIATE ASSISTIVE DEVICE, PROPER BODY MECHANICS TO IMPROVE MOBILITY, AND PREVENT INJURY OF PATIENT AND/OR CAREGIVER. [code = PHYSICAL THERAPY TO INSTRUCT PATIENT/CAREGIVER ON GAIT TRAINING TECHNIQUES USING APPROPRIATE ASSISTIVE DEVICE, PROPER BODY MECHANICS TO IMPROVE MOBILITY, AND PREVENT INJURY OF PATIENT AND/OR CAREGIVER.] Future Scheduled Test PHYSICAL T HERAPY TO ASSESS AND RECOMMEND HOME SAFETY ADAPTATIONS AND EDUCATE PATIENT /CAREGIVER ON FALL PREVENTION STRATEGIES. [code = PHYSICAL THERAPY TO ASSESS AND RECOMMEND HOME SAFETY ADAPTATIONS AND EDUCATE PATIENT /CAREGIVER ON FALL PREVENTION STRATEGIES.] Future Scheduled Test SKILLED NU RSE TO EVALUATE PATIENT, IDENTIFY PRIMARY AND CO-MORBID CONDITIONS CODED PER CODING GUIDELINES, AND DEVELOP PATIENT SPECIFIC PLAN OF CARE THAT INCLUDES PATIENT GOAL FOR HOME HEALTH. SKILLED NURSE TO OBTAIN BLOOD SPECIMEN VIA VENIPUNCTURE FOR LABS ORDERED CBC WITH DIFF, CMP, AND MAGNESIUM OBTAIN LAB RESULTS AND REPORT TO PHYSICIAN. PATIENT HAS A RISK OF HOSPITALIZATION AND ED USE. SKILLED NURSE TO ESTABLISH SUPPORT MEASURES TO MINIMIZE RISK OF HOSPITALIZATION AND ED USE, AND INSTRUCT PATIENT/CAREGIVER ON METHODS TO REDUCE AVOIDABLE HOSPITALIZATION AND ED USE. SKILLED NURSE TO PROVIDE INSTRUCTION TO PATIENT/CAREGIVER RELATED TO DISCHARGE PLANNING. SKILLED NURSE TO PERFORM ENVIRONMENTAL SAFETY RISK ASSESSMENT AND FALL RISK ASSESSMENT AND PROVIDE INSTRUCTION TO IMPLEMENT ENVIRONMENTAL SAFETY AND FALL PREVENTION STRATEGIES THROUGHOUT THE CERTIFICATION PERIOD. SKILLED NURSE WILL MAINTAIN SITUATIONAL AWARENESS AND WILL NOTIFY CLINICAL ORDER TAKERS SUPERVISOR AND PHYSICIAN/PROVIDER WITH ANY CHANGE IN CONDITION. SKILLED NURSE FOR OBSERVATION AND ASSESSMENT OF PATIENT S PAIN LEVEL AND EFFECTIVENESS OF PAIN MANAGEMENT REGIMEN. SKILLED NURSE TO INSTRUCT PATIENT/CAREGIVER REGARDING PHARMACOLOGIC AND NON-PHARMACOLOGIC PAIN CONTROL MEASURES. SKILLED NURSE TO REPORT TO PHYSICIAN IF PAIN LEVEL IS OUTSIDE OF ESTABLISHED PARAMETERS. SKILLED NURSE TO ASSESS PATIENT'S SKIN INTEGRITY AND INSTRUCT PATIENT/CAREGIVER ON MEASURES TO PREVENT PRESSURE ULCERS. SKILLED NURSE TO REVIEW PATIENT MEDICATIONS (PRESCRIPTION/OTC). INSTRUCT PATIENT/CAREGIVER ON ALL MEDICATIONS INCLUDING PURPOSE, WHEN TO TAKE, IMPORTANCE OF MEDICATION ADHERENCE, MONITORING OF EFFECTIVENESS, ADVERSE DRUG REACTIONS, POSSIBLE SIDE EFFECTS, AND WHEN TO NOTIFY AGENCY OR PHYSICIAN/PROVIDER OF ANY CONCERNS. SKILLED NURSE TO INSTRUCT PATIENT/CAREGIVER AND PERFORM CARE AND MANAGEMENT OF INDWELLING URINARY CATHETER. INDWELLING CATHETER INSERTION WITH 18 FR CATHETER WITH 10 ML BALLOON VIA STERILE TECHNIQUE, CHANGE Q 3 WEEKS AND PRN FOR LEAKING OR MALFUNCTIONING CATHETER. IRRIGATE URINARY CATHETER WITH 30-60CC NORMAL SALINE PRN BLOCKAGE/LEAKAGE, HEAVY SEDIMENT. 1 - 3 PRN USP VISITS FOR CATHETER CHANGE(S) AND/OR TROUBLESHOOTING. SKILLED NURSE FOR O/A AND TEACHING RELATED TO LUNG CANCER/NEOPLASM INCLUDING SIGNS AND SYMPTOMS OF DISEASE PROGRESSION, TREATMENT, AND MANAGEMENT OF POTENTIAL SIDE EFFECTS. OXYGEN VIA NASAL CANNULA @ 2 LITERS CONTINUOUS. SKILLED NURSE FOR O/A AND SKILLED TEACHING OF SAFE OXYGEN USE IN THE HOME. HOME HEALTH AGENCY MAY ACCEPT ORDERS FROM THE FOLLOWING PHYSICIANS: ALL PROVIDERS INVOLVED IN CARE [code = SKILLED NURSE TO EVALUATE PATIENT, IDENTIFY PRIMARY AND CO-MORBID CONDITIONS CODED PER CODING GUIDELINES, AND DEVELOP PATIENT SPECIFIC PLAN OF CARE THAT INCLUDES PATIENT GOAL FOR HOME HEALTH. SKILLED NURSE TO OBTAIN BLOOD SPECIMEN VIA VENIPUNCTURE FOR LABS ORDERED CBC WITH DIFF, CMP, AND MAGNESIUM OBTAIN LAB RESULTS AND REPORT TO PHYSICIAN. PATIENT HAS A RISK OF HOSPITALIZATION AND ED USE. SKILLED NURSE TO ESTABLISH SUPPORT MEASURES TO MINIMIZE RISK OF HOSPITALIZATION AND ED USE, AND INSTRUCT PATIENT/CAREGIVER ON METHODS TO REDUCE AVOIDABLE HOSPITALIZATION AND ED USE. SKILLED NURSE TO PROVIDE INSTRUCTION TO PATIENT/CAREGIVER RELATED TO DISCHARGE PLANNING. SKILLED NURSE TO PERFORM ENVIRONMENTAL SAFETY RISK ASSESSMENT AND FALL RISK ASSESSMENT AND PROVIDE INSTRUCTION TO IMPLEMENT ENVIRONMENTAL SAFETY AND FALL PREVENTION STRATEGIES THROUGHOUT THE CERTIFICATION PERIOD. SKILLED NURSE WILL MAINTAIN SITUATIONAL AWARENESS AND WILL NOTIFY CLINICAL ORDER TAKERS SUPERVISOR AND PHYSICIAN/PROVIDER WITH ANY CHANGE IN CONDITION. SKILLED NURSE FOR OBSERVATION AND ASSESSMENT OF PATIENT S PAIN LEVEL AND EFFECTIVENESS OF PAIN MANAGEMENT REGIMEN. SKILLED NURSE TO INSTRUCT PATIENT/CAREGIVER REGARDING PHARMACOLOGIC AND NON-PHARMACOLOGIC PAIN CONTROL MEASURES. SKILLED NURSE TO REPORT TO PHYSICIAN IF PAIN LEVEL IS OUTSIDE OF ESTABLISHED PARAMETERS. SKILLED NURSE TO ASSESS PATIENT'S SKIN INTEGRITY AND INSTRUCT PATIENT/CAREGIVER ON MEASURES TO PREVENT PRESSURE ULCERS. SKILLED NURSE TO REVIEW PATIENT MEDICATIONS (PRESCRIPTION/OTC). INSTRUCT PATIENT/CAREGIVER ON ALL MEDICATIONS INCLUDING PURPOSE, WHEN TO TAKE, IMPORTANCE OF MEDICATION ADHERENCE, MONITORING OF EFFECTIVENESS, ADVERSE DRUG REACTIONS, POSSIBLE SIDE EFFECTS, AND WHEN TO NOTIFY AGENCY OR PHYSICIAN/PROVIDER OF ANY CONCERNS. SKILLED NURSE TO INSTRUCT PATIENT/CAREGIVER AND PERFORM CARE AND MANAGEMENT OF INDWELLING URINARY CATHETER. INDWELLING CATHETER INSERTION WITH 18 FR CATHETER WITH 10 ML BALLOON VIA STERILE TECHNIQUE, CHANGE Q 3 WEEKS AND PRN FOR LEAKING OR MALFUNCTIONING CATHETER. IRRIGATE URINARY CATHETER WITH 30-60CC NORMAL SALINE PRN BLOCKAGE/LEAKAGE, HEAVY SEDIMENT. 1 - 3 PRN USP VISITS FOR CATHETER CHANGE(S) AND/OR TROUBLESHOOTING. SKILLED NURSE FOR O/A AND TEACHING RELATED TO LUNG CANCER/NEOPLASM INCLUDING SIGNS AND SYMPTOMS OF DISEASE PROGRESSION, TREATMENT, AND MANAGEMENT OF POTENTIAL SIDE EFFECTS. OXYGEN VIA NASAL CANNULA @ 2 LITERS CONTINUOUS. SKILLED NURSE FOR O/A AND SKILLED TEACHING OF SAFE OXYGEN USE IN THE HOME. HOME HEALTH AGENCY MAY ACCEPT ORDERS FROM THE FOLLOWING PHYSICIANS: ALL PROVIDERS INVOLVED IN CARE] Goal Patient Goal - TO GET STRONG ER Goal Provider Goal - PHYSICAL THERAPY EVALUATION TO BE COMPLETED WITH RECOMMENDATIONS AND/OR WRITTEN TREATMENT PLAN OF CARE ESTABLISHED FOR THE PHYSICIAN S SIGNATURE Goal Provider Goal - NURSING EVALUATION TO BE COMPLETE WITH RECOMMENDATIONS AND WRITTEN TREATMENT PLAN OF CARE ESTABLISHED FOR PHYSICIAN S SIGNATURE Goal Provider Goal - PATIENT/CAREGIVER VERBALIZES UNDERSTANDING OF THE INITIAL BEST PRACTICE RECOMMENDATIONS. PHYSICIAN TO BE NOTIFIED APPROPRIATE FOR ANY CHANGES OR COMPLICATIONS THROUGHOUT THE CERTIFICATION PERIOD. Goal Provider Goal - PATIENT/CAREGIVER WILL PERFORM THERAPEUTIC EXERCISE/S AND DEMONSTRATE PARTICIPATION IN A HOME PROGRAM. Goal Provider Goal - PATIENT/CAREGIVER WILL DEMONSTRATE SAFE TRANSFERS USING APPROPRIATE ASSISTIVE DEVICE, BODY MECHANICS AND EQUIPMENT. Goal Provider Goal - PATIENT/CAREGIVER WILL DEMONSTRATE IMPROVED GAIT TECHNIQUES TO MINIMIZE RISK OF INJURY. Goal Provider Goal - PATIENT/CAREGIVER WILL DEMONSTRATE/VERBALIZE UNDERSTANDING OF RECOMMENDATIONS TO INCREASE SAFETY IN THE HOME AND FALL PREVENTION. Goal Provider Goal - PHYSICAL THERAPY EVALUATION TO BE COMPLETED WITH RECOMMENDATIONS AND/OR WRITTEN TREATMENT PLAN OF CARE ESTABLISHED FOR THE PHYSICIAN S SIGNATURE Goal Provider Goal - A PLAN OF CARE WILL BE ESTABLISHED THAT MEETS PATIENT'S USP NEEDS AND INCLUDES PATIENT GOAL FOR HOME HEALTH. SKILLED NURSE TO PERFORM LAB PROCEDURE AND REPORT RESULTS TO PHYSICIAN. PATIENT WILL HAVE SUPPORT MEASURES ESTABLISHED TO PREVENT HOSPITALIZATION AND ED USE AND PATIENT/CAREGIVER WILL VERBALIZE/DEMONSTRATE METHODS TO REDUCE AVOIDABLE HOSPITALIZATION AND ED USE BY END OF EPISODE. PATIENT/CAREGIVER WILL VERBALIZE UNDERSTANDING OF DISCHARGE PLANNING INSTRUCTIONS BY DATE OF DISCHARGE. PATIENT/CAREGIVER WILL VERBALIZE/DEMONSTRATE EFFECTIVE ENVIRONMENTAL SAFETY AND FALL PREVENTION STRATEGIES, WILL REMAIN SAFE IN THE COMMUNITY, AND WILL BE FREE OF DANGER TO SELF AND OTHERS THROUGHOUT THE CERTIFICATION PERIOD. PATIENT/CAREGIVER WILL DEMONSTRATE UNDERSTANDING OF PHARMACOLOGIC AND NONPHARMACOLOGIC PAIN CONTROL MEASURES AND PATIENT WILL HAVE IMPROVEMENT IN PAIN INTERFERING WITH ACTIVITY EVIDENCED BY PAIN AT A LEVEL THAT IS ACCEPTABLE TO THE PATIENT AND PAIN LEVEL WITHIN ESTABLISHED PARAMETERS BY END OF CERTIFICATION PERIOD. PATIENT/CAREGIVER WILL VERBALIZE UNDERSTANDING OF PRESSURE ULCER PREVENTION BY END OF THE EPISODE. PATIENT/CAREGIVER WILL VERBALIZE UNDERSTANDING OF EDUCATION PROVIDED ON MEDICATIONS BY THE END OF THE CERTIFICATION PERIOD. PATIENT WILL VERBALIZE TOLERANCE OF CATHETER CHANGE AND KNOWLEDGE OF REQUIRED CARE TO MANAGE INDWELLING URINARY CATHETER WITHOUT COMPLICATIONS BY THE END OF THE CERTIFICATION PERIOD. PATIENT/CAREGIVER WILL VERBALIZE/DEMONSTRATE MANAGEMENT OF LUNG CANCER/NEOPLASM DISEASE AND THE SIDE EFFECTS OF TREATMENTS DURING THIS EPISODE. PATIENT/CAREGIVER WILL VERBALIZE/DEMONSTRATE UNDERSTANDING OF SAFE OXYGEN USE IN THE HOME THROUGHOUT THE EPISODE. ADDITIONAL ORDERS WILL BE RECEIVED FROM ALTERNATE PHYSICIAN IN A TIMELY MANNER THROUGHOUT THE CERTIFICATION PERIOD. Encounters Start Date/Time End Date/Time Encounter Type Admission Type Attending [facility] Care [facility] Care Department Encounter ID Discharge Date Discharge Status Discharge Condition Discharge Reason Percent Goals Met 2025-06-03 00:00:00 2025-08-01 00:00:00 Outpatient NEW ADMISSION JOEY FONG [facility] [id number]
== END 2025-07-21 12:58 | disposition home or self-care (01) | DRG 871 ==
LOC: ER 14:55 → ICU 17:52 → MEDSURG 07-21 04:08
PROVIDERS: Internal Medicine; Admitting Provider Student in an Organized Health Care Education/Training Program; Emergency Provider Family Medicine; PCP Internal Medicine; Visit Provider Student in an Organized Health Care Education/Training Program
DX: A41.9 Sepsis, unspecified organism (principal); E43 Unspecified severe protein-calorie malnutrition; J18.9 Pneumonia, unspecified organism; J96.21 Acute and chronic respiratory failure with hypoxia; J96.22 Acute and chronic respiratory failure with hypercapnia; C34.91 Malignant neoplasm of unspecified part of right bronchus or lung; C34.92 Malignant neoplasm of unspecified part of left bronchus or lung; C78.7 Secondary malignant neoplasm of liver and intrahepatic bile duct; C79.89 Secondary malignant neoplasm of other specified sites; E87.1 Hypo-osmolality and hyponatremia; Z68.1 Body mass index [BMI] 19.9 or less, adult; D84.9 Immunodeficiency, unspecified; J44.0 Chronic obstructive pulmonary disease with (acute) lower respiratory infection; J44.1 Chronic obstructive pulmonary disease with (acute) exacerbation; Z79.51 Long term (current) use of inhaled steroids; Z86.73 Personal history of transient ischemic attack (TIA), and cerebral infarction without residual deficits; Z96.0 Presence of urogenital implants; E87.5 Hyperkalemia; Z79.02 Long term (current) use of antithrombotics/antiplatelets; Z79.60 Long term (current) use of unspecified immunomodulators and immunosuppressants; R65.20 Severe sepsis without septic shock
CPT/HCPCS: 36415; 36416; 36600; 71045; 71275; 80048; 80051; 80053; 80202; 81001; 82330; 82550; 82805; 82962; 83605; 83735; 83880; 84100; 84132; 84145; 84484; 85007; 85025; 87040; 87070; 87086; 87486; 87581; 87633; 87637; 93005; 94640; 94760; 96365; 96372; 96375; 99285; J0692; J1644; J1720; J2270; J2470; J2543; J2919; J3373; J3475; J7030; J7050; J9999

== ENCOUNTER → 2025-07-29 14:27 | Outpatient (BNVA) | payer OTHER, SELFPAY | PROVIDERS: PCP Internal Medicine; Referring Provider Family Medicine; Visit Provider Internal Medicine | DX: J44.9 Chronic obstructive pulmonary disease, unspecified (principal); J18.9 Pneumonia, unspecified organism; J96.10 Chronic respiratory failure, unspecified whether with hypoxia or hypercapnia; Z99.81 Dependence on supplemental oxygen; C34.90 Malignant neoplasm of unspecified part of unspecified bronchus or lung; Z87.891 Personal history of nicotine dependence | CPT/HCPCS: 99204; Q3014 ==

== ENCOUNTER 2025-08-06 09:37 | Emergency (ER) | payer OTHER, SELFPAY ==
--- NOTE | 2025-08-06 09:46 | W.ED.ABDPA2 ---
HPI - Abdominal Pain General: Chief Complaint: Abdominal Pain Stated Complaint: ABD Pain swelling Time Seen by Provider: 08/06/25 09:42 History of Present Illness: 75-year-old male presents emergency room with complaint of abdominal pain and distention with nausea for the last 2 days no vomiting. Patient has a Cuadra in place for urinary retention has been in place for several months he is due within the next week to have it replaced. No fever sweats or chills no flank pain. Patient has a history of metastatic non-small cell lung cancer for which he is receiving immunotherapy his last treatment was a couple of days ago. Denies any medic easier melena hematemesis or coffee-ground emesis no hematuria. Associated Symptoms: Denies chills, dysuria and fever(s) Related Data Home Medications ?Medication ?Instructions ?Recorded ?Confirmed atorvastatin 20 mg tablet 20 mg PO BEDTIME 07/17/25 07/29/25 clopidogrel 75 mg tablet 75 mg PO DAILY 07/17/25 07/29/25 cyanocobalamin (B12)-cobamamide 1 arnold sublingual DAILY 07/17/25 07/29/25 5,000 mcg-100 mcg sublingual lozenge (B12) furosemide 40 mg tablet 40 mg PO DAILY 07/17/25 07/29/25 guaifenesin 600 mg tablet, 1,200 mg PO BID 07/17/25 07/29/25 extended release 12 hr (Mucinex) ipratropium 0.5 mg-albuterol 3 mg 3 ml inhalation Q6H PRN sob 07/17/25 07/29/25 (2.5 mg base)/3 mL nebulization soln tamsulosin 0.4 mg capsule 0.4 mg PO BEDTIME 07/17/25 07/29/25 trazodone 50 mg tablet 50 mg PO DAILY PRN Sleep 07/17/25 07/29/25 benzonatate 100 mg capsule 100 mg PO TID 07/29/25 07/29/25 breathing device 07/29/25 07/29/25 levofloxacin 750 mg tablet mg PO 07/29/25 07/29/25 lidocaine 5 % topical patch 1 patch topical DAILY PRN 07/29/25 07/29/25 (DermacinRx Lidocan) mirtazapine 7.5 mg tablet 15 mg PO BEDTIME 07/29/25 07/29/25 Previous Rx's ?Medication ?Instructions ?Recorded aluminum-mag hydroxide-simethicone 15 ml PO Q6H PRN Indigestion 60 07/19/25 200 mg-200 mg-20 mg/5 mL oral susp days #3,000 mL (Mag-Al Plus) lorazepam 2 mg tablet (Ativan) 2 mg PO Q8H PRN anxiety/air hunger 08/06/25 #14 tabs oxycodone 5 mg tablet 5 mg PO Q4H PRN pain #25 tabs 08/06/25 spironolactone 25 mg tablet 25 mg PO DAILY #20 tabs 08/06/25 cephalexin 500 mg capsule 500 mg PO TID 7 days #21 caps 08/08/25 fluticasone 250 mcg-salmeterol 50 1 inh inhalation BID #60 ea 08/09/25 mcg/dose blistr powdr for inhalation (Wixela Inhub) Allergies Allergy/AdvReac Type Severity Reaction Status Date / Time budesonide Allergy ADR-Gastrointestinal Verified 07/29/25 14:34 Upset Review of Systems Const: Denies: fever(s) or chills Card: Denies: chest pain Resp: Denies: dyspnea GI: Denies: abdominal pain : Denies: dysuria, urinary frequency or urinary urgency Musc: Denies: neck pain or back pain Skin/Breast: Denies: rash PFSH ED PFSH: Medical History Metastatic primary lung cancer COPD (chronic obstructive pulmonary disease) Non-small cell carcinoma of lung Social History Smoking and tobacco/nicotine status: former use of tobacco/nicotine (1 ppd X 60 years. Quit in December 2024) Physical Exam Const: GENERAL APPEARANCE: cooperative ORIENTATION/CONSCIOUSNESS: Yes awake, Yes oriented to person, Yes oriented to place and Yes oriented to time HENMT: COMMON NORMALS: normocephalic, atraumatic and hearing grossly normal bilaterally HEAD & SCALP: normocephalic and atraumatic Resp: COMMON NORMALS: normal respiratory effort, No retractions, No use of accessory muscles and clear to auscultation bilaterally AUSCULTATION: clear to auscultation bilaterally Cardio: COMMON NORMALS: regular rate, regular rhythm and No murmurs present (Cardio) RATE: regular rate RHYTHM: regular rhythm GI: COMMON NORMALS: No hepatosplenomegaly present INSPECTION: Yes abdominal distension AUSCULTATION: Yes normoactive bowel sounds PALPATION: Yes Tenderness to palpation present (GI), No Guarding due to palpation present (GI) and Yes No hepatosplenomegaly present PERCUSSION: dullness to percussion and tympanic to percussion : COMMON NORMALS: Yes no CVA tenderness BLADDER/KIDNEY EXAM: Yes no CVA tenderness Back/Pelvis: COMMON NORMALS: no CVA tenderness Extremity: COMMON NORMALS: normal to inspection, capillary refill normal, no clubbing, cyanosis or edema, no calf tenderness and no pedal edema Neuro: SENSORIUM/ORIENTATION: Yes oriented to person, Yes oriented to place and Yes oriented to time Skin: COMMON NORMALS: no rashes or lesions noted GENERAL SKIN EXAM: no rashes or lesions noted Course Vital Signs: Vital signs: Vital Signs Temperature 98.1 F 08/06/25 12:36 Pulse Rate 96 08/06/25 12:36 Respiratory Rate 16 08/06/25 12:36 Blood Pressure 150/78 08/06/25 12:36 Pulse Oximetry 92 08/06/25 12:36 Oxygen Delivery Me thod Room Air 08/06/25 11:31 Oxygen Flow Rate 2 08/06/25 10:23 MDM - Abdominal Pain Medical Decision Making Patient developing ascites. This is some red and white blood cells per urine but no +1 leukocyte esterase negative nitrates. Some of these findings may be due to his chronic Cuadra catheter, as well as the fact that it is due to be replaced soon single dose of ceftriaxone given. Will await culture results. Started on spironolactone to help with his ascites. Return if he has further problems. Patient has significant findings on the CT but most of these are chronic and known. If develops fever return to the emergency room. Lab Data 08/06/25 09:55 08/06/25 09:55 Labs/Radiology: Radiology Impressions Abdomen/Pelvis CT 08/06/25 10:01 IMPRESSION: 1. Extensive hepatic metastatic disease. 2. Bilateral adrenal gland masses consistent with adrenal metastasis. 3. No renal obstruction. 4. Abrupt termination of contrast in the distal aorta extending into the LEFT common iliac artery. There is reconstitution of flow at the femoral artery. 5. Extensive calcification within the abdominal aorta and iliac arteries and mesenteric arteries. No definite ischemic changes in the GI tract at this time. 6. Severe narrowing of the iliac arteries. High-grade stenoses suspected. 7. Destructive metastatic sites involving the iliac crest. More advanced osseous destruction extending through the cortex involving the RIGHT ilium metastatic site. 8. Small amount of free fluid in the RIGHT pelvis. 9. No lymph nodes identified in the abdomen or pelvis. Small lymph nodes would be obscured due to lack of fat. 10. Urinary bladder nondistended with a Cuadra catheter. Laboratory Results WBC 19.16 10^3/uL (3.29-11.43) H 08/06/25 09:55 RBC 3.00 10^6/uL (3.85-5.65) L 08/06/25 09:55 Hgb 9.70 g/dL (11.27-16.99) L 08/06/25 09:55 Hct 30.4 % (37-53) L 08/06/25 09:55 MCV 101.3 fl (82-101) H 08/06/25 09:55 MCH 32.3 pg (27-33) 08/06/25 09:55 MCHC 31.9 g/dL (30-55) 08/06/25 09:55 RDW 17.8 % (12.1-15.1) H 08/06/25 09:55 Plt Count 366 10^3/cmm (157-399) 08/06/25 09:55 MPV 8.9 fL (7.4-10.4) 08/06/25 09:55 Neut % (Auto) 88.6 % 08/06/25 09:55 Lymph % (Auto) 2.9 % 08/06/25 09:55 [place] % (Auto) 7.3 % 08/06/25 09:55 Eos % (Auto) 0.2 % 08/06/25 09:55 Baso % (Auto) 0.5 % 08/06/25 09:55 Neut # (Auto) 16.99 10^3/uL (1.8-7.7) H 08/06/25 09:55 Lymph # (Auto) 0.6 10^3/uL (0.8-4.8) L 08/06/25 09:55 [place] # (Auto) 1.4 10^3/uL (0.2-0.9) H 08/06/25 09:55 Eos # (Auto) 0.0 10^3/uL (0.0-0.8) 08/06/25 09:55 Baso # (Auto) 0.1 10^3/uL (0.0-0.1) 08/06/25 09:55 Nucleated RBC % (auto) 0 % 08/06/25 09:55 Nucleated RBCs # 0.0 /100WBC 08/06/25 09:55 Sodium 138 mmol/L (136-145) 08/06/25 09:55 Potassium 4.7 mmol/L (3.5-5.1) 08/06/25 09:55 Chloride 93 mmol/L (98-107) L 08/06/25 09:55 Carbon Dioxide 34 mmol/L (22-29) H 08/06/25 09:55 Anion Gap 15.7 (5-19) 08/06/25 09:55 BUN 18 mg/dL (8-23) 08/06/25 09:55 Creatinine 0.6 mg/dL (0.7-1.2) L 08/06/25 09:55 GFR Calculation Not Reportable 08/06/25 09:55 Glucose 112 mg/dL (65-115) 08/06/25 09:55 Calculated Osmolality 289 mOsm/kg (285-295) 08/06/25 09:55 Calcium 9.7 mg/dL (8.5-10.5) 08/06/25 09:55 Total Bilirubin 0.3 mg/dL (0.15-1.2) 08/06/25 09:55 AST 73 U/L (0-40) H 08/06/25 09:55 ALT 94 U/L (0-41) H 08/06/25 09:55 Alkaline Phosphatase 185 U/L (40-130) H 08/06/25 09:55 Total Protein 6.8 g/dL (6.6-8.7) 08/06/25 09:55 Albumin 4.1 g/dL (3.5-5.2) 08/06/25 09:55 Globulin 2.7 g/dL (1.3-4.6) 08/06/25 09:55 Lipase 9 U/L (13-60) L 08/06/25 09:55 Urine Color Yellow (Yellow) 08/06/25 10:19 Urine Appearance Clear (CLEAR) 08/06/25 10:19 Urine pH 6.0 (5-7) 08/06/25 10:19 Ur Specific [place] 1.014 (1.005-1.030) 08/06/25 10:19 Urine Protein 1+ (Negative) A 08/06/25 10:19 Urine Glucose (UA) Negative (Normal) 08/06/25 10:19 Urine Ketones Negative (Negative) 08/06/25 10:19 Urine Blood 1+ (Negative) A 08/06/25 10:19 Urine Nitrate Negative (Negative) 08/06/25 10:19 Urine Bilirubin Negative (Negative) 08/06/25 10:19 Urine Urobilinogen 0.2 mg/dL (Negative) 08/06/25 10:19 Ur Leukocyte Esterase 1+ (Negative) A 08/06/25 10:19 Urine RBC 11-20 /hpf (0-2) H 08/06/25 10:19 Urine WBC 11-20 /hpf (0-5) H 08/06/25 10:19 Ur Squamous Epith Cells 0-5 /hpf (0-5) 08/06/25 10:19 Amorphous Sediment Not Reportable 08/06/25 10:19 Urine Bacteria None seen /hpf (NONE) 08/06/25 10:19 Hyaline Casts 27.69 /lpf 08/06/25 10:19 All radiology interpretation(s) finalized by discharge Discharge Plan Discharge Patient Disposition: Home Clinical Impression: Metastatic primary lung cancer, Cancer, metastatic to liver, Ascites Condition: Stable Prescriptions: New oxycodone 5 mg tablet 5 mg PO Q4H PRN (Reason: pain) Qty: 25 0RF lorazepam [Ativan] 2 mg tablet 2 mg PO Q8H PRN (Reason: anxiety/air hunger) Qty: 14 0RF Rx Instructions: Anxiety/air hunger spironolactone 25 mg tablet 25 mg PO DAILY Qty: 20 0RF Discontinued alprazolam 0.5 mg tablet 0.5 mg PO TID PRN (Reason: Aniety) hydrocodone-acetaminophen 5-325 mg tablet 1 tab PO BID PRN (Reason: Pain, Moderate) No Action lidocaine [DermacinRx Lidocan] 5 % adhesive patch,medicated 1 patch topical DAILY PRN Rx Instructions: leave on most painful area for up to 12 hrs levofloxacin 750 mg tablet PO (DME) breathing device 0 .ROUTE .MEDSUPPLY fluticasone propion-salmeterol [Wixela Inhub] 250-50 mcg/dose blister with device 1 inh inhalation BID Qty: 60 11RF furosemide 40 mg tablet 40 mg PO DAILY atorvastatin 20 mg tablet 20 mg PO BEDTIME ipratropium-albuterol 0.5 mg-3 mg(2.5 mg base)/3 mL solution for nebulization 3 ml INHALATION Q6H PRN (Reason: sob) trazodone 50 mg tablet 50 mg PO DAILY PRN (Reason: Sleep) clopidogrel 75 mg tablet 75 mg PO DAILY tamsulosin 0.4 mg capsule 0.4 mg PO BEDTIME B12 5,000-100 mcg Lozenge 1 arnold SUBLINGUAL DAILY guaifenesin [Mucinex] 600 mg tablet extended release 12hr 1,200 mg PO BID alum-mag hydroxide-simeth [Mag-Al Plus] 200-200-20 mg/5 mL Suspension 15 ml PO Q6H PRN (Reason: Indigestion) 60 Days Qty: 3000 0RF benzonatate 100 mg capsule 100 mg PO TID mirtazapine 7.5 mg tablet 15 mg PO BEDTIME cephalexin 500 mg capsule 500 mg PO TID 7 Days Qty: 21 0RF Discharge Orders: Discharge ED (Routine); Ordered 08/06/25 Ordered By: Nikita Covington Referrals: Virgil Beaulieu MD [Primary Care Provider, Internal Medicine] Discharge Diet: Usual diet Discharge Activity: Increase activity as tolerated Patient Instructions: Abdominal Pain (ED), Opioid Safety, Pain Management, Patient Portal & Petey Instructions Activity Restrictions/Additional Instructions: Thank you for choosing [facility] for your healthcare needs today. It is very important that you follow up as instructed or that you return to the Emergency Department should you have concerns or if your condition changes or worsens in any way. Emergency department visits are focused on emergent conditions, in some cases you may require further evaluation on an outpatient basis. You are seen emergency room with complaints of abdominal discomfort CT of abdomen shows some ascites in the abdomen extensive liver involvement of the your lung cancer that has metastasized to the liver. There is no bowel obstruction at this time suspect the liver changes are what is causing the loss of appetite fluid in the abdomen generalized abdominal discomfort. Recommended that you start spironolactone 25 mg once a day. Additionally hold your hydrocodone and we gave you prescription for oxycodone to use for pain. Also gave you prescription for Ativan to use in place of Xanax (Please note that included in your discharge packet is information concerning opioid safety and pain management. This information is given to all patients were discharged from the ER regardless of their discharge diagnosis or the medicines they usually take or are prescribed.) Print Language: Malian Coding Level of Care Code ED [employer] Management Technician for Yobany Mendiola
[2025-08-06 09:52] VITALS: BP 143/77; PULSE 99; RESP 18; TEMP 36.6; O2SAT 93; BMI 16.1
--- NOTE | 2025-08-06 10:01 | CT_ITS ---
WS: [id number] CT ABDOMEN AND PELVIS WITH CONTRAST HISTORY: abd pain, distended abdomen for 2 days. History of lung cancer. TECHNIQUE: Imaging performed of the abdomen and pelvis with IV contrast. Single phase imaging of the abdomen. Coronal and sagittal reformats are submitted. All CT scans at [facility] use at least one of these dose optimization techniques: automated exposure control; mA and/or kV adjustment per patient size (includes targeted exams where dose is matched to clinical indication); or iterative reconstruction. IV CONTRAST: Omnipaque 350; 100 mL IV. 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 Lungs are hyperinflated. Nodule RIGHT middle lobe 5 mm. Heart is normal size. Small hiatal hernia. Liver/biliary system: Abnormal liver. Liver is enlarged and contains innumerable low-attenuation masses which are confluent consistent with hepatic metastatic disease. Central portal vein is normally enhancing. RIGHT portal vein is not well enhanced. Gallbladder: Normal. No gallstones or wall thickening. No pericholecystic fluid. Pancreas: Normal size pancreas and pancreatic duct. No adjacent inflammation. Spleen: Normal size spleen with granulomata. Adrenal glands: Bilateral adrenal gland masses. Largest adrenal mass on the RIGHT 2.6 x 1.6 cm. LEFT adrenal mass 2.3 x 1.6 cm. Right kidney: No obstruction. Calcification in the calyx of the upper pole measures 8 mm. There are a few tiny too small to characterize hypodensities. Left kidney: No obstruction. Nonobstructing calcifications. Aorta: Atherosclerotic disease within the aorta. Mesenteric arteries are poorly visualized. At least partial stenosis and occlusion of the proximal SMA. Abrupt occlusion of contrast within the aorta extending into the proximal LEFT common iliac artery. Short segment area of no enhancement in the proximal LEFT common iliac artery. Dense arterial calcification bilaterally. Areas of bilateral stenosis likely. Reconstitution is noted in the femoral arteries. Lymphadenopathy: There are a few small central mesenteric and gastrohepatic ligament lymph nodes. Lymphadenopathy would be difficult to exclude due to the very little amount of fat the GI tract. Free fluid: There is a small amount of ascites predominantly within the RIGHT pelvis. GI tract: No obstruction. Diffuse constipation. No ischemic changes. Abdominal wall: Unremarkable abdominal wall. No hernia. Pelvis: Free fluid in the RIGHT pelvis. Urinary bladder is nondistended. There is a Cuadra catheter within the bladder. Bones: Bone metastasis identified. Moth-eaten area involving the RIGHT ilium measures at least 6.5 x 2.4 cm. There is loss of the normal cortex. Abnormality extends to just above the acetabulum. There is an additional mixed sclerotic and lytic lesion in the LEFT ilium measuring 3.9 x 2.4 cm. There are a few small lytic areas in the femoral heads suspicious for metastatic disease. CT/CT abdomen pelvis w con* [id number] IMPRESSION: 1. Extensive hepatic metastatic disease. 2. Bilateral adrenal gland masses consistent with adrenal metastasis. 3. No renal obstruction. 4. Abrupt termination of contrast in the distal aorta extending into the LEFT common iliac artery. There is reconstitution of flow at the femoral artery. 5. Extensive calcification within the abdominal aorta and iliac arteries and m esenteric arteries. No definite ischemic changes in the GI tract at this time. 6. Severe narrowing of the iliac arteries. High-grade stenoses suspected. 7. Destructive metastatic sites involving the iliac crest. More advanced osseo us destruction extending through the cortex involving the RIGHT ilium metastati c site. 8. Small amount of free fluid in the RIGHT pelvis. 9. No lymph nodes identified in the abdomen or pelvis. Small lymph nodes would be obscured due to lack of fat. 10. Urinary bladder nondistended with a Cuadra catheter.
[2025-08-06] MEDS: ondansetron 2 mg/ML SDV 2 mL 4 MG IVP (10:11)
[2025-08-06 10:13] LABS: Hematocrit 30.4 % (37-53); Hemoglobin 9.70 g/dL (11.27-16.99); Mean Corpuscular HGB Conc 31.9 g/dL (30-55); Mean Corpuscular Hemoglobin 32.3 pg (27-33); Mean Corpuscular Volume 101.3 fl (82-101); Nucleated Red Blood Cells % 0 %; Platelet Count 366 10^3/cmm (157-399); Red Blood Count 3.00 10^6/uL (3.85-5.65); White Blood Count 19.16 10^3/uL (3.29-11.43)
[2025-08-06 10:23] VITALS: BP 111/64; PULSE 91; RESP 16; O2SAT 99
[2025-08-06 10:30] LABS: Alanine Aminotransferase 94 U/L (0-41); Albumin Level 4.1 g/dL (3.5-5.2); Alkaline Phosphatase 185 U/L (40-130); Anion Gap 15.7 (5-19); Aspartate Amino Transferase 73 U/L (0-40); Blood Urea Nitrogen 18 mg/dL (8-23); Calcium 9.7 mg/dL (8.5-10.5); Carbon Dioxide 34 mmol/L (22-29); Chloride 93 mmol/L (98-107); Globulin 2.7 g/dL (1.3-4.6); Glucose 112 mg/dL (65-115); Lipase 9 U/L (13-60); Osmolality Calculated 289 mOsm/kg (285-295); Potassium 4.7 mmol/L (3.5-5.1); Sodium 138 mmol/L (136-145); Total Protein 6.8 g/dL (6.6-8.7)
[2025-08-06 10:31] LABS: Glucose Urine UA Negative (Normal); Nitrate Urine Negative (Negative); Specific Gravity, Urine 1.014 (1.005-1.030)
[2025-08-06 10:34] LABS: Add Urine Microscopic? YES
[2025-08-06] MEDS: iohexol 350 mg/mL 500 mL Btl (per mL) IV (10:53)
[2025-08-06 11:31] VITALS: BP 121/83; PULSE 97; RESP 16; O2SAT 99
[2025-08-06 12:19] VITALS: RESP 16; O2SAT 91
[2025-08-06] MEDS: morphine 4 mg/mL SDV 1 mL IVP (12:19)
[2025-08-06] MEDS: cefTRIAXone 1,000 mg SDV 1000 MG IVP (12:20)
[2025-08-06 12:36] VITALS: BP 150/78; PULSE 96; RESP 16; TEMP 36.7; O2SAT 92
--- OUTSIDE RECORDS SUMMARY | 2025-09-18 18:00 | XMS_ITS | Clinical Summary ---
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 Role Phone MICHELLE GARRISON, CARMEN Unavailable Unavailable WINDY RAUSCH, MELISSA Unavailable Unavailable Payers Payer Name Policy Type Policy Number Effective Date Expira tion Date [facility] OPTUM PROGRAM - PDGM Problems [...] OF NICOTINE DEPENDENCE Active 09-23 00:00: 00 LONGTERM (CURRENT) USE OF ANTITHROMBOT ICS/ANTIPLAT ELETS Active 09-23 00:00: 00 LONGTERM (CURRENT) USE OF OPIATE ANALGESIC Active 09-23 [...] 06-03 00:00: 00 07-20 23:59 :00 No [id number] 1 tablet EVERY 6 HOURS 1 tablet EVERY 6 HOURS (route: oral) Med Classific ation: Central Nervous System Agents atorvastati n 80 mg tablet 06-03 00:00: 00 07-20 23:59 :00 No [id number] 1 tablet DAILY 1 tablet DAILY (route: oral) Med Classific ation: Cardiovas cular Therapy Agents B-Complex tablet 06-03 00:00: 00 07-20 23:59 :00 No [id number] 1 tablet DAILY 1 tablet DAILY (route: oral) Med Classific ation: Electroly te Balance-N utritiona l Products benzonatate 200 mg capsule 06-03 00:00: 00 07-20 23:59 :00 No [id number] 1 capsule 3 TIMES DAILY 1 capsule 3 TIMES DAILY (route: oral) Med Classific ation: Respirato ry Therapy Agents clopidogrel 75 mg tablet 06-03 00:00: 00 07-20 23:59 :00 No [id number] 1 tablet DAILY 1 tablet DAILY (route: oral) Med Classific ation: Hematolog ical Agents ferrous gluconate 324 mg (37.5 mg iron) tablet 06-03 00:00: 00 07-20 23:59 :00 No [id number] 1 tablet DAILY 1 tablet DAILY (route: oral) Med Classific ation: Electroly te Balance-N utritiona l Products folic acid 1 mg tablet 06-03 00:00: 00 07-20 23:59 :00 No [id number] 1 tablet DAILY 1 tablet DAILY (route: oral) Med Classific ation: Electroly te Balance-N utritiona l Products furosemide 40 mg tablet 06-03 00:00: 00 07-20 23:59 :00 No [id number] 1 tablet DAILY 1 tablet DAILY (route: oral) Med Classific ation: Cardiovas cular Therapy Agents hydrocodone 5 mg-acetamin ophen 325 mg tablet 06-03 00:00: 00 07-20 23:59 :00 No [id number] 1 tablet EVERY 4 HOURS 1 tablet EVERY 4 HOURS (route: oral) Med Classific ation: Analgesic , Anti-infl ammatory or Antipyret ic ipratropium 0.5 mg-albutero l 3 mg (2.5 mg base)/3 mL nebulizatio n soln 06-03 00:00: 00 07-20 23:59 :00 No [id number] 1 mL EVERY 6 HOURS 1 mL EVERY 6 HOURS (route: inhalation ) Med Classific ation: Respirato ry Therapy Agents Lidoderm 5 % topical patch 06-03 00:00: 00 07-20 23:59 :00 No [id number] 1 adhesiv e patch, medicat ed DIRECTED 1 adhesive patch, medicated DIRECTED (route: topical) Med Classific ation: Dermatolo gical Mucinex 600 mg tablet, extended release 06-03 00:00: 00 07-20 23:59 :00 No [id number] 2 tablet 2 TIMES DAILY 2 tablet 2 TIMES DAILY (route: oral) Med Classific ation: Respirato ry Therapy Agents naloxone 4 mg/actuatio n nasal spray 06-03 00:00: 00 07-20 23:59 :00 No [id number] Per instruc tions NEEDED Per instructio ns NEEDED (route: nasal) Med Classific ation: Antidotes and other Reversal Agents ondansetron HCl 8 mg tablet 06-03 00:00: 00 07-20 23:59 :00 No [id number] 1 tablet EVERY 6 HOURS 1 tablet EVERY 6 HOURS (route: oral) Med Classific ation: Gastroint estinal Therapy Agents tamsulosin 0.4 mg capsule 06-03 00:00: 00 07-20 23:59 :00 No [id number] 2 capsule DAILY 2 capsule DAILY (route: oral) Med Classific ation: Genitouri nary Therapy Thera-M 9 mg iron-400 mcg tablet 06-03 00:00: 00 07-20 23:59 :00 No [id number] 1 tablet DAILY 1 tablet DAILY (route: oral) Med Classific ation: Electroly te Balance-N utritiona l Products thiamine HCl (vitamin B1) 100 mg tablet 06-03 00:00: 00 07-20 23:59 :00 No [id number] 1 tablet DAILY 1 tablet DAILY (route: oral) Med Classific ation: Electroly te Balance-N utritiona l Products Trelegy Ellipta 100 mcg-62.5 mcg-25 mcg powder for inhalation 06-03 00:00: 00 07-20 23:59 :00 No [id number] 1 inhalat ion DAILY 1 inhalation DAILY (route: inhalation ) Med Classific ation: Respirato ry Therapy Agents Vitamin D3 25 mcg (1,000 unit) tablet 06-03 00:00: 00 07-20 23:59 :00 No [id number] 1 tablet DAILY 1 tablet DAILY (route: oral) Med Classific ation: Electroly te Balance-N utritiona l Products oxygen gas for inhalation 06-07 00:00: 00 07-20 23:59 :00 No [id number] 2 Liter O2 - CONTINUOUS 2 Liter O2 - CONTINUOUS (route: inhalation ) Med Classific ation: Medical Supplies and Durable Medical Equipment (DME) aluminum-ma g hydroxide-s imethicone 200 mg-200 mg-20 mg/5 mL oral susp 2024-09 00:00: 00 Yes [id number] 15 mL EVERY 6 HOURS 15 mL EVERY 6 HOURS (route: oral) Med Classific ation: Gastroint estinal Therapy Agents atorvastati n 20 mg tablet 2024-09 00:00: 00 Yes [id number] 1 tablet BEDTIME 1 tablet BEDTIME (route: oral) Med Classific ation: Cardiovas cular Therapy Agents clopidogrel 75 mg tablet 2024-09 00:00: 00 Yes [id number] 1 tablet DAILY 1 tablet DAILY (route: oral) Med Classific ation: Hematolog ical Agents furosemide 40 mg tablet 2024-09 00:00: 00 Yes [id number] 1 tablet DAILY 1 tablet DAILY (route: oral) Med Classific ation: Cardiovas cular Therapy Agents hydrocodone 5 mg-acetamin ophen 325 mg tablet 2024-09 00:00: 00 Yes [id number] 1 tablet 2 TIMES DAILY 1 tablet 2 TIMES DAILY (route: oral) Med Classific ation: Analgesic , Anti-infl ammatory or Antipyret ic ipratropium 0.5 mg-albutero l 3 mg (2.5 mg base)/3 mL nebulizatio n soln 2024-09 00:00: 00 Yes [id number] 3 mL EVERY 4 HOURS 3 mL EVERY 4 HOURS (route: inhalation ) Med Classific ation: Respirato ry Therapy Agents levofloxaci n 750 mg tablet 2024-09 00:00: 00 07-31 23:59 :00 No [id number] 1 tablet DAILY 1 tablet DAILY (route: oral) Med Classific ation: Anti-Infe ctive Agents LIDOCAINE PAIN RELIEF 5% 2024-09 00:00: 00 Yes [id number] 1 patch NEEDED 1 patch A S NEEDED (route: TOPICALLY) Med Classific ation: ANALGESIC S mecobalamin (vitamin B12) 5,000 mcg disintegrat ing tablet 2024-09 00:00: 00 Yes [id number] 1 tablet DAILY 1 tablet DAILY (route: oral) Med Classific ation: Electroly te Balance-N utritiona l Products mirtazapine 7.5 mg tablet 2024-09 00:00: 00 Yes [id number] 1 tablet BEDTIME 1 tablet BEDTIME (route: oral) Med Classific ation: Central Nervous System Agents Mucinex 1,200 mg tablet, extended release 2024-09 00:00: 00 Yes [id number] 1 tablet 2 TIMES DAILY 1 tablet 2 TIMES DAILY (route: oral) Med Classific ation: Respirato ry Therapy Agents prednisone 20 mg tablet 2024-09 00:00: 00 07-24 23:59 :00 No [id number] 2 tablet DAILY 2 tablet DAILY (route: oral) Med Classific ation: Endocrine tamsulosin 0.4 mg capsule 2024-09 00:00: 00 Yes [id number] 1 capsule BEDTIME 1 capsule BEDTIME (route: oral) Med Classific ation: Genitouri nary Therapy trazodone 50 mg tablet 2024-09 00:00: 00 Yes [id number] 1 tablet BEDTIME 1 tablet BEDTIME (route: oral) Med Classific ation: Central Nervous System Agents Xanax 0.5 mg tablet 2024-09 00:00: 00 Yes [id number] 1 tablet EVERY 6 HOURS 1 tablet [...] SCIC, AND/OR DC.] Future Scheduled Test HOME [facility] MAY ACCEPT ORDERS FROM THE [...] MAINTAIN SITUATIONAL AWARENESS AND WILL NOTIFY CLINICAL SUPPLY CHAIN CONSULTANT AND PHYSICIAN/PROVIDER WITH ANY CHANGE IN CONDITION. [code = SKILLED NURSE TO PERFORM ENVIRONMENTAL SAFETY RISK ASSESSMENT AND FALL RISK ASSESSMENT AND PROVIDE INSTRUCTION TO IMPLEMENT ENVIRONMENTAL SAFETY AND FALL PREVENTION STRATEGIES THROUGHOUT THE CERTIFICATION PERIOD. SKILLED NURSE WILL MAINTAIN SITUATIONAL AWARENESS AND WILL NOTIFY CLINICAL SUPPLY CHAIN CONSULTANT AND PHYSICIAN/PROVIDER WITH ANY CHANGE IN CONDITION.] [...] End Date/Time Encounter Type Admission Type Attending [facility] Care Department Encounter ID Discharge Date Discharge Status Discharge Condition Discharge Reason Percent Goals Met 2025-07-22 00:00:00 2025-09-19 00:00:00 Outpatient READMISSIO N [facility] [id number] 22.58
--- OUTSIDE RECORDS SUMMARY | 2025-09-18 18:00 | XMS_ITS | Clinical Summary ---
Author Organization Unknown Care Team Providers Care Distance Education Faculty Liaison Name Role Phone MICHELLE GARRISON, CARMEN Unavailable Unavailable WINDY RAUSCH, MELISSA Unavailable Unavailable Payers Payer Name Policy Type Policy Number Effective Date Expira tion Date [facility] OPTUM PROGRAM - PDGM Problems Condition [...] 09-23 00:00: 00 ATHSCL HEART DISEASE OF [place] CORONARY ARTERY W/O ANG PCTRS Active 09-23 [...] OF NICOTINE DEPENDENCE Active 09-23 00:00: 00 ALF (CURRENT) USE OF ANTITHROMBOT ICS/ANTIPLAT ELETS Active 09-23 00:00: 00 ALF (CURRENT) USE OF OPIATE ANALGESIC Active 09-23 [...] 06-03 00:00: 00 07-20 23:59 :00 No [id number] 1 tablet EVERY 6 HOURS 1 tablet EVERY 6 HOURS (route: oral) Med Classific ation: Central Nervous System Agents atorvastati n 80 mg tablet 06-03 00:00: 00 07-20 23:59 :00 No [id number] 1 tablet DAILY 1 tablet DAILY (route: oral) Med Classific ation: Cardiovas cular Therapy Agents B-Complex tablet 06-03 00:00: 00 07-20 23:59 :00 No [id number] 1 tablet DAILY 1 tablet DAILY (route: oral) Med Classific ation: Electroly te Balance-N utritiona l Products benzonatate 200 mg capsule 06-03 00:00: 00 07-20 23:59 :00 No [id number] 1 capsule 3 TIMES DAILY 1 capsule 3 TIMES DAILY (route: oral) Med Classific ation: Respirato ry Therapy Agents clopidogrel 75 mg tablet 06-03 00:00: 00 07-20 23:59 :00 No [id number] 1 tablet DAILY 1 tablet DAILY (route: oral) Med Classific ation: Hematolog ical Agents ferrous gluconate 324 mg (37.5 mg iron) tablet 06-03 00:00: 00 07-20 23:59 :00 No [id number] 1 tablet DAILY 1 tablet DAILY (route: oral) Med Classific ation: Electroly te Balance-N utritiona l Products folic acid 1 mg tablet 06-03 00:00: 00 07-20 23:59 :00 No [id number] 1 tablet DAILY 1 tablet DAILY (route: oral) Med Classific ation: Electroly te Balance-N utritiona l Products furosemide 40 mg tablet 06-03 00:00: 00 07-20 23:59 :00 No [id number] 1 tablet DAILY 1 tablet DAILY (route: oral) Med Classific ation: Cardiovas cular Therapy Agents hydrocodone 5 mg-acetamin ophen 325 mg tablet 06-03 00:00: 00 07-20 23:59 :00 No [id number] 1 tablet EVERY 4 HOURS 1 tablet EVERY 4 HOURS (route: oral) Med Classific ation: Analgesic , Anti-infl ammatory or Antipyret ic ipratropium 0.5 mg-albutero l 3 mg (2.5 mg base)/3 mL nebulizatio n soln 06-03 00:00: 00 07-20 23:59 :00 No [id number] 1 mL EVERY 6 HOURS 1 mL EVERY 6 HOURS (route: inhalation ) Med Classific ation: Respirato ry Therapy Agents Lidoderm 5 % topical patch 06-03 00:00: 00 07-20 23:59 :00 No [id number] 1 adhesiv e patch, medicat ed DIRECTED 1 adhesive patch, medicated DIRECTED (route: topical) Med Classific ation: Dermatolo gical Mucinex 600 mg tablet, extended release 06-03 00:00: 00 07-20 23:59 :00 No [id number] 2 tablet 2 TIMES DAILY 2 tablet 2 TIMES DAILY (route: oral) Med Classific ation: Respirato ry Therapy Agents naloxone 4 mg/actuatio n nasal spray 06-03 00:00: 00 07-20 23:59 :00 No [id number] Per instruc tions NEEDED Per instructio ns NEEDED (route: nasal) Med Classific ation: Antidotes and other Reversal Agents ondansetron HCl 8 mg tablet 06-03 00:00: 00 07-20 23:59 :00 No [id number] 1 tablet EVERY 6 HOURS 1 tablet EVERY 6 HOURS (route: oral) Med Classific ation: Gastroint estinal Therapy Agents tamsulosin 0.4 mg capsule 06-03 00:00: 00 07-20 23:59 :00 No [id number] 2 capsule DAILY 2 capsule DAILY (route: oral) Med Classific ation: Genitouri nary Therapy Thera-M 9 mg iron-400 mcg tablet 06-03 00:00: 00 07-20 23:59 :00 No [id number] 1 tablet DAILY 1 tablet DAILY (route: oral) Med Classific ation: Electroly te Balance-N utritiona l Products thiamine HCl (vitamin B1) 100 mg tablet 06-03 00:00: 00 07-20 23:59 :00 No [id number] 1 tablet DAILY 1 tablet DAILY (route: oral) Med Classific ation: Electroly te Balance-N utritiona l Products Trelegy Ellipta 100 mcg-62.5 mcg-25 mcg powder for inhalation 06-03 00:00: 00 07-20 23:59 :00 No [id number] 1 inhalat ion DAILY 1 inhalation DAILY (route: inhalation ) Med Classific ation: Respirato ry Therapy Agents Vitamin D3 25 mcg (1,000 unit) tablet 06-03 00:00: 00 07-20 23:59 :00 No [id number] 1 tablet DAILY 1 tablet DAILY (route: oral) Med Classific ation: Electroly te Balance-N utritiona l Products oxygen gas for inhalation 06-07 00:00: 00 07-20 23:59 :00 No [id number] 2 Liter O2 - CONTINUOUS 2 Liter O2 - CONTINUOUS (route: inhalation ) Med Classific ation: Medical Supplies and Durable Medical Equipment (DME) aluminum-ma g hydroxide-s imethicone 200 mg-200 mg-20 mg/5 mL oral susp 2024-09 00:00: 00 Yes [id number] 15 mL EVERY 6 HOURS 15 mL EVERY 6 HOURS (route: oral) Med Classific ation: Gastroint estinal Therapy Agents atorvastati n 20 mg tablet 2024-09 00:00: 00 Yes [id number] 1 tablet BEDTIME 1 tablet BEDTIME (route: oral) Med Classific ation: Cardiovas cular Therapy Agents clopidogrel 75 mg tablet 2024-09 00:00: 00 Yes [id number] 1 tablet DAILY 1 tablet DAILY (route: oral) Med Classific ation: Hematolog ical Agents furosemide 40 mg tablet 2024-09 00:00: 00 Yes [id number] 1 tablet DAILY 1 tablet DAILY (route: oral) Med Classific ation: Cardiovas cular Therapy Agents hydrocodone 5 mg-acetamin ophen 325 mg tablet 2024-09 00:00: 00 Yes [id number] 1 tablet 2 TIMES DAILY 1 tablet 2 TIMES DAILY (route: oral) Med Classific ation: Analgesic , Anti-infl ammatory or Antipyret ic ipratropium 0.5 mg-albutero l 3 mg (2.5 mg base)/3 mL nebulizatio n soln 2024-09 00:00: 00 Yes [id number] 3 mL EVERY 4 HOURS 3 mL EVERY 4 HOURS (route: inhalation ) Med Classific ation: Respirato ry Therapy Agents levofloxaci n 750 mg tablet 2024-09 00:00: 00 07-31 23:59 :00 No [id number] 1 tablet DAILY 1 tablet DAILY (route: oral) Med Classific ation: Anti-Infe ctive Agents LIDOCAINE PAIN RELIEF 5% 2024-09 00:00: 00 Yes [id number] 1 patch NEEDED 1 patch A S NEEDED (route: TOPICALLY) Med Classific ation: ANALGESIC S mecobalamin (vitamin B12) 5,000 mcg disintegrat ing tablet 2024-09 00:00: 00 Yes [id number] 1 tablet DAILY 1 tablet DAILY (route: oral) Med Classific ation: Electroly te Balance-N utritiona l Products mirtazapine 7.5 mg tablet 2024-09 00:00: 00 Yes [id number] 1 tablet BEDTIME 1 tablet BEDTIME (route: oral) Med Classific ation: Central Nervous System Agents Mucinex 1,200 mg tablet, extended release 2024-09 00:00: 00 Yes [id number] 1 tablet 2 TIMES DAILY 1 tablet 2 TIMES DAILY (route: oral) Med Classific ation: Respirato ry Therapy Agents prednisone 20 mg tablet 2024-09 00:00: 00 07-24 23:59 :00 No [id number] 2 tablet DAILY 2 tablet DAILY (route: oral) Med Classific ation: Endocrine tamsulosin 0.4 mg capsule 2024-09 00:00: 00 Yes [id number] 1 capsule BEDTIME 1 capsule BEDTIME (route: oral) Med Classific ation: Genitouri nary Therapy trazodone 50 mg tablet 2024-09 00:00: 00 Yes [id number] 1 tablet BEDTIME 1 tablet BEDTIME (route: oral) Med Classific ation: Central Nervous System Agents Xanax 0.5 mg tablet 2024-09 00:00: 00 Yes [id number] 1 tablet EVERY 6 HOURS 1 tablet [...] SCIC, AND/OR DC.] Future Scheduled Test HOME [facility] MAY ACCEPT ORDERS FROM THE FOLLOWING [...] BLOCKAGE/LEAKAGE, HEAVY SEDIMENT. 1 - 3 PRN JAIL VISITS FOR CATHETER CHANGE(S) AND/OR TROUBLESHOOTING. [code = SKILLED NURSE TO INSTRUCT PATIENT/CAREGIVER AND PERFORM CARE AND MANAGEMENT OF INDWELLING URINARY CATHETER. INDWELLING CATHETER INSERTION WITH 16 FR CATHETER WITH 10 ML BALLOON VIA STERILE TECHNIQUE, CHANGE Q 4 WEEKS AND PRN FOR LEAKING OR MALFUNCTIONING CATHETER. IRRIGATE URINARY CATHETER WITH 30-60CC NORMAL SALINE PRN BLOCKAGE/LEAKAGE, HEAVY SEDIMENT. 1 - 3 PRN JAIL VISITS FOR CATHETER CHANGE(S) AND/OR TROUBLESHOOTING.] Future [...] MAINTAIN SITUATIONAL AWARENESS AND WILL NOTIFY CLINICAL REGIONAL SALES TRAINER AND PHYSICIAN/PROVIDER WITH ANY CHANGE IN CONDITION. [code = SKILLED NURSE TO PERFORM ENVIRONMENTAL SAFETY RISK ASSESSMENT AND FALL RISK ASSESSMENT AND PROVIDE INSTRUCTION TO IMPLEMENT ENVIRONMENTAL SAFETY AND FALL PREVENTION STRATEGIES THROUGHOUT THE CERTIFICATION PERIOD. SKILLED NURSE WILL MAINTAIN SITUATIONAL AWARENESS AND WILL NOTIFY CLINICAL REGIONAL SALES TRAINER AND PHYSICIAN/PROVIDER WITH ANY CHANGE IN CONDITION.] [...] CARE WILL BE ESTABLISHED THAT MEETS PATIENT'S JAIL NEEDS AND INCLUDES PATIENT GOAL FOR HOME [...] Date/Time Encounter Type Admission Type Attending [facility] Care Department Encounter ID Discharge Date Discharge Status Discharge Condition Discharge Reason Percent Goals Met 2025-07-22 00:00:00 2025-09-19 00:00:00 Outpatient READMISSIO N [facility] [id number] 22.58
--- OUTSIDE RECORDS SUMMARY | 2025-09-18 18:00 | XMS_ITS | Clinical Summary ---
Author Organization Unknown Care Team Providers Care Ignition Specialist Name Role Phone MICHELLE GARRISON, CARMEN Unavailable [...] 09-23 00:00: 00 ATHSCL HEART DISEASE OF [place] CORONARY ARTERY W/O ANG PCTRS Active 09-23 [...] 06-03 00:00: 00 07-20 23:59 :00 No [id number] 1 tablet EVERY 6 HOURS 1 tablet EVERY 6 HOURS (route: oral) Med Classific ation: Central Nervous System Agents atorvastati n 80 mg tablet 06-03 00:00: 00 07-20 23:59 :00 No [id number] 1 tablet DAILY 1 tablet DAILY (route: oral) Med Classific ation: Cardiovas cular Therapy Agents B-Complex tablet 06-03 00:00: 00 07-20 23:59 :00 No [id number] 1 tablet DAILY 1 tablet DAILY (route: oral) Med Classific ation: Electroly te Balance-N utritiona l Products benzonatate 200 mg capsule 06-03 00:00: 00 07-20 23:59 :00 No [id number] 1 capsule 3 TIMES DAILY 1 capsule 3 TIMES DAILY (route: oral) Med Classific ation: Respirato ry Therapy Agents clopidogrel 75 mg tablet 06-03 00:00: 00 07-20 23:59 :00 No [id number] 1 tablet DAILY 1 tablet DAILY (route: oral) Med Classific ation: Hematolog ical Agents ferrous gluconate 324 mg (37.5 mg iron) tablet 06-03 00:00: 00 07-20 23:59 :00 No [id number] 1 tablet DAILY 1 tablet DAILY (route: oral) Med Classific ation: Electroly te Balance-N utritiona l Products folic acid 1 mg tablet 06-03 00:00: 00 07-20 23:59 :00 No [id number] 1 tablet DAILY 1 tablet DAILY (route: oral) Med Classific ation: Electroly te Balance-N utritiona l Products furosemide 40 mg tablet 06-03 00:00: 00 07-20 23:59 :00 No [id number] 1 tablet DAILY 1 tablet DAILY (route: oral) Med Classific ation: Cardiovas cular Therapy Agents hydrocodone 5 mg-acetamin ophen 325 mg tablet 06-03 00:00: 00 07-20 23:59 :00 No [id number] 1 tablet EVERY 4 HOURS 1 tablet EVERY 4 HOURS (route: oral) Med Classific ation: Analgesic , Anti-infl ammatory or Antipyret ic ipratropium 0.5 mg-albutero l 3 mg (2.5 mg base)/3 mL nebulizatio n soln 06-03 00:00: 00 07-20 23:59 :00 No [id number] 1 mL EVERY 6 HOURS 1 mL EVERY 6 HOURS (route: inhalation ) Med Classific ation: Respirato ry Therapy Agents Lidoderm 5 % topical patch 06-03 00:00: 00 07-20 23:59 :00 No [id number] 1 adhesiv e patch, medicat ed DIRECTED 1 adhesive patch, medicated DIRECTED (route: topical) Med Classific ation: Dermatolo gical Mucinex 600 mg tablet, extended release 06-03 00:00: 00 07-20 23:59 :00 No [id number] 2 tablet 2 TIMES DAILY 2 tablet 2 TIMES DAILY (route: oral) Med Classific ation: Respirato ry Therapy Agents naloxone 4 mg/actuatio n nasal spray 06-03 00:00: 00 07-20 23:59 :00 No [id number] Per instruc tions NEEDED Per instructio ns NEEDED (route: nasal) Med Classific ation: Antidotes and other Reversal Agents ondansetron HCl 8 mg tablet 06-03 00:00: 00 07-20 23:59 :00 No [id number] 1 tablet EVERY 6 HOURS 1 tablet EVERY 6 HOURS (route: oral) Med Classific ation: Gastroint estinal Therapy Agents tamsulosin 0.4 mg capsule 06-03 00:00: 00 07-20 23:59 :00 No [id number] 2 capsule DAILY 2 capsule DAILY (route: oral) Med Classific ation: Genitouri nary Therapy Thera-M 9 mg iron-400 mcg tablet 06-03 00:00: 00 07-20 23:59 :00 No [id number] 1 tablet DAILY 1 tablet DAILY (route: oral) Med Classific ation: Electroly te Balance-N utritiona l Products thiamine HCl (vitamin B1) 100 mg tablet 06-03 00:00: 00 07-20 23:59 :00 No [id number] 1 tablet DAILY 1 tablet DAILY (route: oral) Med Classific ation: Electroly te Balance-N utritiona l Products Trelegy Ellipta 100 mcg-62.5 mcg-25 mcg powder for inhalation 06-03 00:00: 00 07-20 23:59 :00 No [id number] 1 inhalat ion DAILY 1 inhalation DAILY (route: inhalation ) Med Classific ation: Respirato ry Therapy Agents Vitamin D3 25 mcg (1,000 unit) tablet 06-03 00:00: 00 07-20 23:59 :00 No [id number] 1 tablet DAILY 1 tablet DAILY (route: oral) Med Classific ation: Electroly te Balance-N utritiona l Products oxygen gas for inhalation 06-07 00:00: 00 07-20 23:59 :00 No [id number] 2 Liter O2 - CONTINUOUS 2 Liter O2 - CONTINUOUS (route: inhalation ) Med Classific ation: Medical Supplies and Durable Medical Equipment (DME) aluminum-ma g hydroxide-s imethicone 200 mg-200 mg-20 mg/5 mL oral susp 2024-09 00:00: 00 Yes [id number] 15 mL EVERY 6 HOURS 15 mL EVERY 6 HOURS (route: oral) Med Classific ation: Gastroint estinal Therapy Agents atorvastati n 20 mg tablet 2024-09 00:00: 00 Yes [id number] 1 tablet BEDTIME 1 tablet BEDTIME (route: oral) Med Classific ation: Cardiovas cular Therapy Agents clopidogrel 75 mg tablet 2024-09 00:00: 00 Yes [id number] 1 tablet DAILY 1 tablet DAILY (route: oral) Med Classific ation: Hematolog ical Agents furosemide 40 mg tablet 2024-09 00:00: 00 Yes [id number] 1 tablet DAILY 1 tablet DAILY (route: oral) Med Classific ation: Cardiovas cular Therapy Agents hydrocodone 5 mg-acetamin ophen 325 mg tablet 2024-09 00:00: 00 Yes [id number] 1 tablet 2 TIMES DAILY 1 tablet 2 TIMES DAILY (route: oral) Med Classific ation: Analgesic , Anti-infl ammatory or Antipyret ic ipratropium 0.5 mg-albutero l 3 mg (2.5 mg base)/3 mL nebulizatio n soln 2024-09 00:00: 00 Yes [id number] 3 mL EVERY 4 HOURS 3 mL EVERY 4 HOURS (route: inhalation ) Med Classific ation: Respirato ry Therapy Agents levofloxaci n 750 mg tablet 2024-09 00:00: 00 07-31 23:59 :00 No [id number] 1 tablet DAILY 1 tablet DAILY (route: oral) Med Classific ation: Anti-Infe ctive Agents LIDOCAINE PAIN RELIEF 5% 2024-09 00:00: 00 Yes [id number] 1 patch NEEDED 1 patch A S NEEDED (route: TOPICALLY) Med Classific ation: ANALGESIC S mecobalamin (vitamin B12) 5,000 mcg disintegrat ing tablet 2024-09 00:00: 00 Yes [id number] 1 tablet DAILY 1 tablet DAILY (route: oral) Med Classific ation: Electroly te Balance-N utritiona l Products mirtazapine 7.5 mg tablet 2024-09 00:00: 00 Yes [id number] 1 tablet BEDTIME 1 tablet BEDTIME (route: oral) Med Classific ation: Central Nervous System Agents Mucinex 1,200 mg tablet, extended release 2024-09 00:00: 00 Yes [id number] 1 tablet 2 TIMES DAILY 1 tablet 2 TIMES DAILY (route: oral) Med Classific ation: Respirato ry Therapy Agents prednisone 20 mg tablet 2024-09 00:00: 00 07-24 23:59 :00 No [id number] 2 tablet DAILY 2 tablet DAILY (route: oral) Med Classific ation: Endocrine tamsulosin 0.4 mg capsule 2024-09 00:00: 00 Yes [id number] 1 capsule BEDTIME 1 capsule BEDTIME (route: oral) Med Classific ation: Genitouri nary Therapy trazodone 50 mg tablet 2024-09 00:00: 00 Yes [id number] 1 tablet BEDTIME 1 tablet BEDTIME (route: oral) Med Classific ation: Central Nervous System Agents Xanax 0.5 mg tablet 2024-09 00:00: 00 Yes [id number] 1 tablet EVERY 6 HOURS 1 tablet [...] SCIC, AND/OR DC.] Future Scheduled Test HOME [facility] MAY ACCEPT ORDERS FROM THE [...] MAINTAIN SITUATIONAL AWARENESS AND WILL NOTIFY CLINICAL GRIP ASSEMBLER AND PHYSICIAN/PROVIDER WITH ANY CHANGE IN CONDITION. [code = SKILLED NURSE TO PERFORM ENVIRONMENTAL SAFETY RISK ASSESSMENT AND FALL RISK ASSESSMENT AND PROVIDE INSTRUCTION TO IMPLEMENT ENVIRONMENTAL SAFETY AND FALL PREVENTION STRATEGIES THROUGHOUT THE CERTIFICATION PERIOD. SKILLED NURSE WILL MAINTAIN SITUATIONAL AWARENESS AND WILL NOTIFY CLINICAL GRIP ASSEMBLER AND PHYSICIAN/PROVIDER WITH ANY CHANGE IN CONDITION.] [...] End Date/Time Encounter Type Admission Type Attending [facility] Care Department Encounter ID Discharge Date Discharge Status Discharge Condition Discharge Reason Percent Goals Met 2025-07-22 00:00:00 2025-09-19 00:00:00 Outpatient READMISSIO N [facility] [id number] 22.58
== END 2025-08-06 12:53 | disposition home or self-care (01) ==
PROVIDERS: Emergency Provider Family Medicine; PCP Internal Medicine
DX: C78.01 Secondary malignant neoplasm of right lung (principal); C78.7 Secondary malignant neoplasm of liver and intrahepatic bile duct; R18.8 Other ascites; Z79.02 Long term (current) use of antithrombotics/antiplatelets; Z87.891 Personal history of nicotine dependence; J44.9 Chronic obstructive pulmonary disease, unspecified
CPT/HCPCS: 74177; 80053; 81001; 83690; 85025; 87086; 96374; 96375; 99285; J0696; J2270; J2405; J7030

== ENCOUNTER 2025-08-08 11:27 | Emergency (ER) | payer OTHER, SELFPAY ==
--- OUTSIDE RECORDS SUMMARY | 2025-07-13 08:20 | XMS_ITS | Encounter Summary ---
Author Organization [facility] Address [address] [place] [address] Phone Care Team Providers Care Legal Transcriptionist Name Role Phone ArtisCarmen Belkys Primary Care Provider [phone] Cheng Franco MD Unavailable Yuval Licona MD Unavailable Reason for Referral * Consultation (Routine) - Pending Review Specialty Diagnoses / Procedures Referred By Contac t Referred To Contact Dermatology Diagnoses Lesion of nose Cheng Franco MD [address] [facility] [address] [place] [address] Phone: tel: fax: [facility] Medicine Dermatology [address] [facility] [address] [place] [address] Phone: tel: fax: Referral ID Status Reason Start Date Expiration Date Visits Requested Visits Authorized [id number] Pending Review Specialty Services Required 5 08/12/2026 1 1 Question Answer Please select the performing region: [facility] (All Locations) [[id number]] Please select the performing department: [facility] [[id number]] # of visits: 1 Comments Lesion on nose, R/O cancer * Diagnostic Imaging (Routine) - Authorized Specialty Diagnoses / Procedures Referred By Nia betancourt Referred To Contact Radiology Diagnoses 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) Small cell carcinoma of lung, unspecified laterality, unspecified part of lung (HCC) 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) Malignant neoplasm metastatic to bone (HCC) Procedures MRI Brain W WO Contrast Cheng Franco MD [address] [place] [address] Phone: tel: fax: [facility] [address] [place] [address] Referral ID Status Reason Start Date Expiration Date V isits Requested Visits Authorized [id number] Authorized 07/13/2025 08/12/2026 1 1 Reason for Visit * Consultation (Routine) - Authorized Specialty Diagnoses / Procedures Referred By Nia betancourt Referred To Contact Oncology Diagnoses Pulmonary nodules Mass of upper lobe of left lung Yuval Licona MD [address] [facility] [address] [place] [address] Phone: tel: fax: [facility] Medicine Oncology [facility] Floor [address] [place] [address] Phone: tel: fax: Referral ID Status Reason Start Date Expiration Date Visits Requested Visits Authorized [id number] Authorized Specialty Services Required 03/29/2025 10/03/2025 [id number] Encounter Details Date Type Department Care Team (Late st Contact Info) Description 07/13/2025 9:20 AM CDT Office Visit [facility] Medicine Oncology 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 More than three times a week 04/14/2025 How often do you get togethe r with friends or relatives? More than three times a week 04/14/2025 How often do you attend chur ch or mandaeism services? 1 to 4 times per year 04/14/2025 Do you belong to any clubs o r organizations such as yarsanism groups, unions, fraternal or athletic groups, or school groups? No 04/14/2025 How often do you attend meet ings of the clubs or organizations you belong to? Never 04/14/2025 Are you , , di vorced, , never , or living with a partner? 04/14/2025 Overall Financial Resource Strain (CARDIA) Answe r Date Recorded How hard is it for you to pa y for the very basics like food, housing, medical care, and heating? Not hard at all 04/14/2025 PHQ-2 Answer Date Recorded PHQ-2 Total Score (If total score is 3 or more points, staff should administer the PHQ-9) 0 04/14/2025 PRAPARE - Transportation Answer Date Re corded In the past 12 months, has l ack of transportation kept you from medical appointments or from getting medications? No 03/24 In the past 12 months, has l ack of transportation kept you from meetings, work, or from getting things needed for daily living? No 04/14/2025 Housing Stability Vital Sign Answer Oscar e Recorded In the last 12 months, was t here a time when you were not able to pay the mortgage or rent on time? No 04/14/2025 In the past 12 months, how m any times have you moved where you were living? 0 04/14/2025 At any time in the past 12 [facility], were you homeless or living in a fpc (including now)? No 04/14/2025 Social Connection and Isolation Panel Answer Date Recorded In a typical week, how many times do you talk on the phone with family, friends, or neighbors? More than three times a week 05/26/2025 How often do you get togethe r with friends or relatives? More than three times a week 05/26/2025 How often do you attend chur ch or mandaeism services? 1 to 4 times per year 05/26/2025 Do you belong to any clubs o r organizations such as yarsanism groups, unions, fraternal or athletic groups, or school groups? No 05/26/2025 How often do you attend meet ings of the clubs or organizations you belong to? Never 05/26/2025 Are you , , di vorced, , never , or living with a partner? 05/26/2025 Overall Financial Resource Strain (CARDIA) Answe r Date Recorded How hard is it for you to pa y for the very basics like food, housing, medical care, and heating? Not hard at all 05/26/2025 Hunger Vital Sign Answer Date Recorded Within the past 12 months, y ou worried that your food would run out before you got the money to buy more. Never true 05/26/20 25 Within the past 12 months, t he food you bought just didn't last and you didn't have money to get more. Never true 05/26/2025 PRAPARE - Transportation Answer Date Re corded In the past 12 months, has l ack of transportation kept you from medical appointments or from getting medications? No 11/2024 In the past 12 months, has l ack of transportation kept you from meetings, work, or from getting things needed for daily living? No 05/26/2025 Housing Stability Vital Sign Answer Oscar e Recorded In the last 12 months, was t here a time when you were not able to pay the mortgage or rent on time? No 05/26/2025 In the past 12 months, how m any times have you moved where you were living? 1 05/26/2025 At any time in the past 12 m [facility], were you homeless or living in a fpc (including now)? No 05/26/2025 [facility] Utilities Answer Date Recorded In the past 12 months has th [employer], gas, oil, or water company threatened to shut off services in your home? No 05/26/2025 Personal Safety Answer Date Recorded Have you ever been in or are you currently in a harmful physical or emotional relationship or is someone making you feel afraid or unsafe? Denies 05/25/2025 Sex and Gender Information Value Date Recorded Sex Assigned at Not on file Legal Sex Male 10:52 AM CDT Gender Identity Not on file Sexual Orientation Not on file documented as of this encounter Last Filed Vital Signs Vital Sign Reading Time Taken Comments Blood Pressure 137/84 07/13/2025 9:32 AM CDT Pulse 110 07/13/2025 9:32 AM CDT Temperature 36.6 C (97.9 F) 07/13/2025 9:32 AM CDT Respiratory Rate 18 07/13/2025 9:32 AM CDT Oxygen Saturation 97% 07/13/2025 9:3 2 AM CDT Inhaled Oxygen Concentration - - Weight 54.1 kg (119 lb 4.8 oz) 07/13/2025 9:31 AM CDT declined to remove shoes Height - - Body Mass Index 16.18 04/07/2025 7:21 PM CDT documented in this encounter Functional Status documented as of this encounter Progress Notes * Audrey Up MD PhD - 07/13/2025 9:20 AM CDT Images from the original note were not included. Oncology Medicine Follow Up Oncology History Overview Note DIAGNOSIS: Extensive stage small-cell lung cancer arising from the left lung with metastasis to the liver and bones diagnosed 04/09/2025 GENOMIC AND IMMUNOLOGIC DATA: Tempus XT testing on liver biopsy specimen 04/09/2025 shows CDH2 p. E216* VAF 40.6%, EP300 p.V8566B VAF 43.3%, RB1 c.[id number]+20del VAF 87.6%, SMARCA4 c.3216-2A> G VAF 43.3%, TP53 p.Y220 C VAF 88%, microsatellite instability status: stable, tumor mutational burden 10.5 m/MB TEMPUS XR on liver biopsy specimen 04/09/2025 shows no reportable pathogenic variants TREATMENT HISTORY: Carboplatin, etoposide and atezolizumab Cycle 1 carboplatin and etoposide administered as an inpatient from 04/19/2025 through 04/21/2025 with Neulasta OBI, with atezolizumab held Cycle 2 started on 05/27/2025 with atezolizumab added on 05/31/2025 Cycle 3 day 1 on 06/22/2025. Cycle 4 day 1 of etoposide and atezolizumab only, with carboplatin discontinued on 07/13/2025 due to fatigue, symptomatic anemia and weakness. 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 Differential diagnosis include progressing early metastasis versus subacute infarcts. Short interval (1-month) follow-up with contrast-enhanced MRI is recommended. Malignant neoplasm metastatic to bone (HCC) 04/06/2025 Initial Diagnosis Malignant neoplasm metastatic to bone (HCC) SCLC (small cell lung carcinoma) (HCC) 03/19/2025 - Cancer Staged Staging form: Lung, AJCC V9 - Clinical stage from 03/19/2025: Stage IVB (cT1c, cN3, pM1c2) 04/15/2025 Initial Diagnosis SCLC (small cell lung carcinoma) (HCC) Subjective Sim Carty is 75-year-old male with extensive stage small-cell lung cancer who presents to clinictoday in consideration to receive cycle 4 of chemotherapy with immunotherapy. Overall, he feels fatigued and has not been getting out of bed or his chair much. He reports dyspnea on exertion, although his daughter perceives his dyspnea to be improving whilst on treatment. She believes her father might not be remembering well how profoundly sick and dyspneic he was while in the hospital. The patient agrees that this might be the case and his oxygen requirements have not gone up. Nonetheless, he reports poor appetite, and not sleeping well at night. He states he feels anxious about the future and his worries sometimes keep him up at night. He denies new headache, vision changes, cough, congestion, chest pain, nausea, new bone pain, abdominal pain, diarrhea, constipation, dysuria, hematuria,urgency and frequency. He states he would like to continue with treatment and complete the course of chemotherapy today. PAST MEDICAL HISTORY: BPH Ex smoker, 1PPD for 60 years COPD HTN HLD CAD in 2019 on DAPT with ASA and plavix PAST SURGICAL HISTORY: None Allergies Allergen Reactions Budesonide Other (See comments) flush FAMILY HISTORY: His son had schwanomma in his 40s. Other than that no other family members with early cancers SOCIAL HISTORY: He has been a lifelong smoker with 1 pack per day for over 60 years and quit about 4 weeks ago. He does not drink any alcohol and denies any recreational drug use. He lives in [place] with his . He has 7 kids all of whom live in [place] and two kids live close by in [place]. He is a retired . REVIEW OF SYSTEMS: Per history of presenting illness, all other systems were reviewed and negative. PERFORMANCE STATUS: ECOG PS 2 Objective Vitals: Most Recent : BP: 137/84 Temp: 36.6 ??C (97.9 ??F) Pulse: 110 Resp: 18 SpO2: 97 % Weight: 54.1 kg (119 lb 4.8 oz) (declined to remove shoes) Physical Exam: Blood pressure 137/84, pulse 110, temperature 36.6 ??C (97.9 ??F), resp. rate 18, weight 54.1 kg (119 lb 4.8 oz), SpO2 97%. General: He is in no acute distress, seated in a wheelchair wearing a nasal cannula. HEENT: Sclera anicteric, no pallor, mucous membranes moist, oropharynx clear. Small, pearly fleshy nodule measuring 2x2 cm on nose Lymphatics: No cervical or supraclavicular adenopathy Chest: Diminished posteriorly Heart: Regular rate and rhythm Abdomen: Soft, non-tender Genitourinary: Cuadra catheter in place. Urine clear. Extremities: Trace non pitting edema Neurologic: Alert, speech normal, no gross motor deficits noted Psychiatric exam: Appropriate affect Skin: No rashes. Ulcerated lesion on the nose and left cheeks concerning for possible cutaneous malignancy. Photos included below Lab/Radiology/Diagnostic Review: CBC: Lab Results Component Value Date WBC 8.76 07/13/2025 HGB 9.3 (L) 07/13/2025 HCT 26.6 (L) 07/13/2025 MCV 93.2 07/13/2025 LABPLAT 251 07/13/2025 NEUTROABS 7.34 (H) 07/13/2025 CMP: Lab Results Component Value Date SODIUM 127 (L) 07/13/2025 POTASSIUM 4.2 07/13/2025 CO2 32 07/13/2025 BUNSER 10 07/13/2025 GLUCOSE 96 07/13/2025 CREATININE 0.42 (L) 07/13/2025 CALCIUM 8.2 (L) 07/13/2025 CHLORIDE 89 (L) 07/13/2025 ALBUMIN 3.5 07/13/2025 AST 33 07/13/2025 ALT 32 07/13/2025 ALKPHOS 89 07/13/2025 BILITOT 0.2 07/13/2025 PROT 6.0 (L) 07/13/2025 ANIONGAP 6 07/13/2025 Hematology Lab History Latest Ref Rng & Units 05/29/2025 19:20 05/31/2025 10:42 06/22/2025 13:05 07/13/2025 08:13 Labs - Hematology WBC 3.80 - 9.90 K/cumm 15.63 11.66 10.94 8.76 Total Hb, POC 13.0 - 17.5 g/dL 9.2 10.7 10.5 9.3 Hct 38.9 - 50.3 % 28.2 32.5 31.9 26.6 Plt 150 - 400 K/cumm 314 321 474 251 Neutrophil abs 1.50 - 6.50 K/cumm 14.27 10.52 9.15 7.34 Lymphocytes, abs 0.80 - 3.30 K/cumm 0.52 0.86 0.76 0.71 Chem/LFT Lab History Latest Ref Rng & Units 05/29/2025 19:20 05/31/2025 10:42 06/22/2025 07/13/2025 08:13 Labs-Chem/LFT Sodium 135 - 145 mmol/L 140 134 139 127 Creatinine 0.80 - 1.30 mg/dL 0.70 0.54 0.54 0.42 Bilirubin, total 0.1 - 1.2 mg/dL 0.2 0.4 0.3 0.2 AST 10 - 50 Units/L 47 40 39 33 ALT 7 - 55 Units/L 37 44 37 32 Alk phos 40 - 130 Units/L 81 76 117 89 CrCl- Actual Body Weight (Cockcroft-Gault) 76.8 84.8 91.4 112.7 Details More abnormal values are hidden. Newest values shown. Go to activity for more data. More values are hidden. Newest values shown. Go to activity for more data. Radiology: MRI Brain Tumor W WO Contrast Result Date: 05/27/2025 Impression: Persistent bilateral small foci of diffusion restriction and subtle peripheral enhancement seen in the bilateral periventricular white matter with 2 new foci of restricted diffusion in right centrum semi-ovale and right cerebellum. Differential diagnosis include progressing early metastasis versus subacute infarcts. Short interval (1-month) follow-up with contrast-enhanced MRI is recommended. CT Chest Abdomen Pelvis W Contrast Result Date: 07/13/2025 Impression: 1. Stable left upper lobe mass with postobstructive change in the left upper lobe consistent with small cell lung cancer. 2. Interval improvement in mediastinal lymphadenopathy consistentwith some response to therapy in this location. 3. Interval improvement in hepatic metastatic disease. Stable adrenal lesions. 4. New periportal lymphadenopathy which is concerning for worsening metastatic disease at this site. New relatively severe narrowing of the central superior mesenteric veinsecondary to mass effect from surrounding structures; the vein is still patent. 5. New sclerotic left iliac lesion consistent with metastatic disease. Interval increase in lytic change in the right supra- acetabular iliac bone is also consistent with metastasis. This lesion places the patient risk for pathologic fracture. 6. Background of emphysema with multiple new small pulmonary nodules; many of these may be inflammatory given short-term change and extensive emphysema with findings of chronicbronchitis. Follow-up is required to determine whether some of these may represent sites of metastatic disease. Assessment/Plan Extensive stage small-cell lung cancer arising from the left lung with metastasis to the liver and bones. Sim Carty is a 75-year-old gentleman with metastatic small-cell lung cancer status post 1 cycle of carboplatin and etoposide administered as an inpatient emergently due to visceral crisis with elevated liver enzymes. Treatment was complicated by chemotherapy-induced pancytopenia requiring Neulasta as well as packed red cell transfusions, and subsequent hospitalization due to pneumonia and COPD exacerbation. His liver enzymes normalized after starting chemotherapy and his blood counts are recovering. He presents clinic today to initiate cycle [address] imaging shows ongoing response to treatment, with decrease in his pulmonary metastatic disease and liver metastases. There was a comment made regarding subcentimeter abdominal adenopathy, which is likely reactive. In addition a left iliac sclerotic lesion was noted, which had been previously noted on PET-CT as well, and clinically likely represents ongoing treatment response. He continues to experience significant fatigue, poor appetite, dyspnea, and laboratory evidence of anemia, all of which appear to be treatment- related and have negatively impacted his quality of life. Given these cumulative toxicities and the palliative intent of therapy, we will discontinue carboplatin moving forward while continuing atezolizumab and ending the last dose of etoposide today. This modification aims to reducetreatment-related side effects, improve symptom burden, and maintain overall quality of life while p reserving disease control with the immunotherapy backbone He will return to clinic in 3 weeks with a brain MRI scan and to consider maintenance atezolizumab. We will forego lurbinectedin being added in the maintenance setting due to chemotherapy-induced toxicities and need for discontinuing carboplatin with cycle 4 of chemotherapy. He knows to call the office with any changes, questions, or concerns. Hyponatremia. Sodium today 127, likely in the setting of poor oral intake. Will add 1L of IV fluidswith treatment today. Pancytopenia secondary to chemotherapy. This has improved, although on today's labs he has anemia (9.3 from 10.5). He will continue to receive Neulasta obi with his treatment and we will plan to start aranesp for the anemia. Skin lesions. He has an ulcerated lesion to the nose and left cheek, areas of sun exposure. Will refer to a deep submergence vehicle operator for further evaluation. Poor appetite. He will continue mirtazapine 7.5 mg daily. Difficulty sleeping. Continue trazodone 50 mg nightly. Goals of Care. Per discussion with him at prior consultation visit, his code status is DNR DNI. Audrey Up MD Hematology-Oncology Fellow, PGY-3 [facility] in [place] Cosigned by Cheng Franco MD at 08/02/2025 9:07 AM GROUP MANAGER P MANAGER Associated attestation - Cheng Franco MD - 08/02/2025 9:07 AM GROUP MANAGER I have seen and examined the patient on 07/13/2025 . I agree with the findings and plan of care as documented in Dr. Audrey Up's note. 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) Malignant neoplasm metastatic to bone (HCC) Expected: 08/03/2025, Expires: 07/13/2026 Vitamin B12 and Folate Lab Routine 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) Anemia due to chemotherapy Expected: 07/13/2025, Expires: 07/13/2026 Scheduled Referrals Name Type Priority Associated Diagnoses Order Schedule Ambulatory referral to Dermatology Outpatient Referral Routine Lesion of nose Expected: 07/20/2025 (Approximate), Expires: 07/13/2026 documented as of this encounter Results * Thyroid Function [place] (08/03/2025 1:10 PM GROUP MANAGER) TSH 1.81 0.30 - 4.20 mcIUnit/mL Blood 08/03/2025 1:10 PM GROUP MANAGER 08/03/2025 1:19 PM GROUP MANAGER us Cheng Franco MD LAB BLOOD ORDERABLES Cherrie l Result [facility] Department [place] [address] * (ABNORMAL) Comprehensive metabolic panel (08/03/2025 1:10 PM GROUP MANAGER) Sodium 133(L) 135 - 145 mmol/L Potassium, pl 4.8 3.3 - 4.9 mmol/L [facility] Chloride 90(L) 97 - 110 mmol/L [facility] CO2 34(H) 22 - 32 mmol/L [facility] Anion gap 9 2 - 15 mmol/L [facility] BUN 19 6 - 25 mg/dL [facility] Creatinine 0.52(L) 0.80 - 1.30 mg/dL [facility] Glucose 135 70 - 199 mg/dL [facility] Comment: Interpretive Data Fasting glucose >/= 126 mg/dl is diagnostic for diabetes. Fasting is defined as no caloric intake for at least 8 hours. Fasting glucose between 100 mg/dl to 125 mg/dl is diagnostic of prediabetes. In a patient with classic symptoms of hyperglycemia or hyperglycemic crisis, a random glucose >/= 200 mg/dl is diagnostic for diabetes. In the absence of unequivocal hyperglycemia, results should be confirmed by repeat testing. The classification and Diagnosis of Diabetes Diabetes Care 2021; 46: S19-S40. Current interpretive data was last revised 2022. Calcium 9.5 8.5 - 10.3 mg/dL [facility] Bilirubin, total 0.3 0.1 - 1.2 mg/dL [facility] Protein, pl 6.7 6.5 - 8.5 g/dL [facility] Albumin 3.8 3.5 - 5.0 g/dL [facility] Alk phos 157(H) 40 - 130 Units/L [facility] ALT 73(H) 7 - 55 Units/L [facility] AST 75(H) 10 - 50 Units/L [facility] Comment:Hemolyzed; result ma y be falsely elevated Blood 08/03/2025 1:10 PM GROUP MANAGER 08/03/2025 1:19 PM GROUP MANAGER Cheng Franco MD LAB BLOOD ORDERABLES Cherrie l Result [facility] Department [place] [address] * (ABNORMAL) CBC with auto differential (08/03/2025 1:10 PM GROUP MANAGER) WBC 14.99(H) 3.80 - 9.90 K/cumm Comment:Testing performed by : [facility], [address] [place] [address] Hgb 9.8(L) 13.0 - 17.5 g/dL [facility] Comment:Testing performed by : [facility], [address] [place] [address] Hct 29.3(L) 38.9 - 50.3 % [facility] Comment:Testing performed by : [facility], [address] [place] [address] Plt 425(H) 150 - 400 K/cumm [facility] Comment:Testing performed by : [facility], [address] [place] [address] MPV 6.5(L) 6.8 - 10.4 fL [facility] Comment:Testing performed by : [facility], [address] [place] [address] RBC 3.01(L) 4.30 - 5.80 M/cumm [facility] Comment:Testing performed by : [facility], [address] [place] [address] MCV 97.3(H) 81.3 - 96.4 fL [facility] Comment:Testing performed by : [facility], [address] [place] [address] MCH 32.5 27.1 - 33.3 pg [facility] Comment:Testing performed by : [facility], [address] [place] [address] MCHC 33.4 32.3 - 35.7 g/dL [facility] Comment:Testing performed by : [facility], [address] [place] [address] RDW CV 19.3(H) 11.1 - 14.9 % [facility] Comment:Testing performed by : [facility], [facility] [place] [address] NRBC abs 0.00 0.00 - 0.01 K/cumm [facility] Comment:Testing performed by : [facility], [address] [place] [id number] Blood 08/03/2025 1:10 PM GROUP MANAGER 08/03/2025 1:17 PM GROUP MANAGER us Cheng Franco MD LAB BLOOD ORDERABLES Cherrie l Result [facility] Department of Laboratories [place], [place] [id number] documented in this encounter Visit Diagnoses Diagnosis 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)- Primary Small cell carcinoma of lung, unspecified laterality, unspecified part of lung (HCC) 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) Prophylaxis for chemotherapy-induced neutropenia Malignant neoplasm metastatic to bone (HCC) Lesion of nose Anemia due to chemotherapy Antineoplastic chemotherapy induced anemia Hyponatremia Hyposmolality and/or hyponatremia documented in this encounter Orders Lab Orders Without Results Count Last Ordered D ate First Ordered Date IRON PROFILE W/ IBC 1 07/13/2025 Appointment Requests Count Last Ordered Date Fi rst Ordered Date ON[facility]N CLINIC APPOINTMENT REQUEST 2 2 025 07/13/2025 ON[facility] LAB APPOINTMENT 1 08/03/2025 ON[facility]N RETURN CHEMO 2HRS 3 08/03/2025 documented in this encounter Additional Health Concerns Infection Onset Date Last Indicated Resolved Time COVID: Suspected 07/14/2025 07/14/2025 07/14/2025 6:44 PM CDT documented as of this encounter Care Teams Legal Transcriptionist Relationship Specialty Start Date End Date Carmen Artis [address] [place] [address] PCP - General Family Medicine 03/09/25 Cheng Franco MD [address] [facility] [address] Bradford [address] [address] Medical Oncologist/Bag Machine Helper Medical Oncology 04/05/25 Yuval Licona MD [address] [place], [place] [id number] Referring Physician Thoracic Surgery 04/05/25 documented as of this encounter
--- OUTSIDE RECORDS SUMMARY | 2025-08-03 12:45 | XMS_ITS | Encounter Summary ---
Author Organization [facility] Healthcare Address [address] [place] [address] Care Team Providers Care Business Team Leader Name Role Phone Carmen Artis Primary Care Provider [phone] Cheng Franco MD Unavailable [phone] Yuval Licona MD Unavailable Reason for Visit * Episode Based Medications (Routine) - Authorized Specialty Diagnoses / Procedures Referred By Contac t Referred To Contact Diagnoses Prophylaxis for chemotherapy-induced neutropenia Malignant neoplasm metastatic to bone (HCC) Small cell carcinoma of lung, unspecified laterality, unspecified part of lung (HCC) Andree Rawls MD [address] [facility] [address] [place] [address] Phone: tel: fax: [facility] - Infusion [address] [facility] [address] [place] [address] Referral ID Status Reason Start Date Expiration Date V isits Requested Visits Authorized [id number] Authorized 04/13/2025 10/03/2025 1 20 Encounter Details Date Type Department Care Team (Late st Contact Info) Description 08/03/2025 12:45 PM GAUGE MACHINE OPERATOR Lab [facility] - Lab Collection [address] [facility] [address] [place] [address] Prophylaxis for chemotherapy-induced neutropenia; Malignant neoplasm metastatic to bone (HCC); Small cell carcinoma of lung, unspecified laterality, unspecified part of lung (HCC) Social History Tobacco Use Types Packs/Day Years [...] often do you attend chur ch or voodoo services? 1 to 4 times per year 04/14/2025 Do you belong to any clubs o r organizations such as yazdanism groups, unions, fraternal or athletic groups, or [...] [facility] in the [facility], were you homeless or living in a nursing home (including now)? No 04/14/2025 Social Connection and Isolation Panel Answer Date Recorded In a typical week, how many times do you talk on the phone with family, friends, or neighbors? More than three times a week 05/26/2025 How often do you get togethe r with friends or relatives? More than three times a week 05/26/2025 How often do you attend chur ch or voodoo services? 1 to 4 times per year 05/26/2025 Do you belong to any clubs o r organizations such as yazdanism groups, unions, fraternal or athletic groups, or [...] any time in the past 12 [facility], were you homeless or living in a nursing home (including now)? No 05/26/2025 [facility] Utilities Answer Date Recorded In the past 12 months has th e electric, gas, oil, or water PT [employer] threatened to shut off services in your [...] on file documented as of this encounter Functional Status documented as of this encounter Plan of Treatment Not on file documented as of this encounter Procedures Procedure Name Priority Date/Time Associated Diagnosis Comments EGFR STAT 08/03/2025 1:10 PM GAUGE MACHINE OPERATOR Prophylaxis for chemotherapy-induce d neutropenia Malignant neoplasm metastatic to bone (HCC) Small cell carcinoma of lung, unspecified laterality, unspecified part of lung (HCC) DIFFERENTIAL AUTO STAT 08/03/2025 1:1 0 PM GAUGE MACHINE OPERATOR Prophylaxis for chemotherapy-induce d neutropenia Malignant neoplasm metastatic to bone (HCC) Small cell carcinoma of lung, unspecified laterality, unspecified part of lung (HCC) THYROID FUNCTION CASCADE Routine 08/03/2025 1:10 PM GAUGE MACHINE OPERATOR Prophylaxis for chemotherapy-induce d neutropenia Malignant neoplasm metastatic to bone (HCC) Small cell carcinoma of lung, unspecified laterality, unspecified part of lung (HCC) CBC WITH AUTO DIFFERENTIAL STAT 08/03/2025 1:10 PM GAUGE MACHINE OPERATOR Prophylaxis for chemotherapy-induce d neutropenia Malignant neoplasm metastatic to bone (HCC) Small cell carcinoma of lung, unspecified laterality, unspecified part of lung (HCC) COMPREHENSIVE METABOLIC PANEL STAT 08/03/2025 1:10 PM GAUGE MACHINE OPERATOR Prophylaxis for chemotherapy-induce d neutropenia Malignant neoplasm metastatic to bone (HCC) Small cell carcinoma of lung, unspecified laterality, unspecified part of lung (HCC) documented in this encounter Results * eGFR (08/03/2025 1:10 PM GAUGE MACHINE OPERATOR) eGFR >90 >=60 mL/min/1. 73 m2 Comment: Interpretive Data Reference Interval Normal >/= 90 mL/min/1.73m2 Mildly decreased* 60 - 89 mL/min/1.73m2 Mildly to moderately decreased 45 - 59 mL/min/1.73m2 Moderately to severely decreased 30 - 44 mL/min/1.73m2 Severely decreased 15 - 29 mL/min/1.73m2 Kidney Failure < 15 mL/min/1.73m2 *Relative to young adult level Estimated glomerular filtration rate is determined by the 2020 CKD-EPI equation recommended by the National Kid[employer] (A Unifying Approach to GFR Estimation: Recommendations of the NKF-ASK Task Force on Reassessing the Inclusion of Race in Diagnosing Kidney Disease, JASN 2020). The CKD-EPI equation should not be used for patients with unstable renal function and has not been validated in children and those over 70. Current interpretive data was last reviewed 2021. Blood 08/03/2025 1:10 PM GAUGE MACHINE OPERATOR 08/03/2025 1:19 PM GAUGE MACHINE OPERATOR Cheng Franco MD LAB BLOOD ORDERABLES Cherrie l Result [facility] Department [place] [address] * (ABNORMAL) Differential, auto (08/03/2025 1:10 PM GAUGE MACHINE OPERATOR) Neutrophil abs 13.07(H) 1.50 - 6.50 K/cumm Comment:Testing performed by : [facility], [address] [place] [phone] Lymphocyte abs 0.71(L) 0.80 - 3.30 K/cumm [facility] Comment:Testing performed by : [facility], [address] [place] [phone] Monocyte abs 1.11(H) 0.20 - 0.80 K/cumm [facility] Comment:Testing performed by : [facility], [address] [place] [phone] Eosinophil abs 0.05 0.00 - 0.50 K/cumm [facility] Comment:Testing performed by : [facility], [address] [place] [phone] Basophil abs 0.05 0.00 - 0.10 K/cumm [facility] Comment:Testing performed by : [facility], [address] [place] [phone] Neutrophil pct 87.2 % [facility] Comment: Interpretive Data Percent cell count reference ranges are not reported, since discordance with absolute values may lead to misinterpretation of CBC data. Current Interpretive Data was last revised on 2017. Testing performed by: [facility], [address] [place] [phone] Lymphocyte pct 4.7 % [facility] Comment: Interpretive Data Percent cell count reference ranges are not reported, since discordance with absolute values may lead to misinterpretation of CBC data. Current Interpretive Data was last revised on 2017. Testing performed by: [facility], [address] [place] [phone] Monocyte pct 7.4 % [facility] Comment: Interpretive Data Percent cell count reference ranges are not reported, since discordance with absolute values may lead to misinterpretation of CBC data. Current Interpretive Data was last revised on 2017. Testing performed by: [facility], [address] [place] [phone] Eosinophil pct 0.3 % [facility] Comment: Interpretive Data Percent cell count reference ranges are not reported, since discordance with absolute values may lead to misinterpretation of CBC data. Current Interpretive Data was last revised on 2017. Testing performed by: [facility], [address] [place] [phone] Basophil pct 0.3 % [facility] Comment: Interpretive Data Percent cell count reference ranges are not reported, since discordance with absolute values may lead to misinterpretation of CBC data. Current Interpretive Data was last revised on 2017. Testing performed by: [facility], [address] [place] [phone] Blood 08/03/2025 1:10 PM GAUGE MACHINE OPERATOR 08/03/2025 1:17 PM GAUGE MACHINE OPERATOR us Cheng Franco MD LAB BLOOD ORDERABLES Cherrie avis Result [facility] Department [place] [address] * (ABNORMAL) CBC with auto differential (08/03/2025 1:10 PM GAUGE MACHINE OPERATOR) WBC 14.99(H) 3.80 - 9.90 K/cumm Comment:Testing performed by : [facility], [address] [place] [address] Hgb 9.8(L) 13.0 - 17.5 g/dL [facility] Comment:Testing performed by : [facility], [address] [place] [address] Hct 29.3(L) 38.9 - 50.3 % [facility] Comment:Testing performed by : [facility], [address] [place] [address] Plt 425(H) 150 - 400 K/cumm [facility] Comment:Testing performed by : [facility], [address] [place] [address] MPV 6.5(L) 6.8 - 10.4 fL [facility] Comment:Testing performed by : [facility], [address] [place] [address] RBC 3.01(L) 4.30 - 5.80 M/cumm [facility] Comment:Testing performed by : [facility], [address] [place] [address] MCV 97.3(H) 81.3 - 96.4 fL [facility] Comment:Testing performed by : [facility], [address] [place] [address] MCH 32.5 27.1 - 33.3 pg [facility] Comment:Testing performed by : [facility], [address] [place] [address] MCHC 33.4 32.3 - 35.7 g/dL [facility] Comment:Testing performed by : [facility], [address] [place] [phone] RDW CV 19.3(H) 11.1 - 14.9 % [facility] Comment:Testing performed by : [facility], [address] [place] [phone] NRBC abs 0.00 0.00 - 0.01 K/cumm [facility] Comment:Testing performed by : [facility], [address] [place] [phone] Blood 08/03/2025 1:10 PM GAUGE MACHINE OPERATOR 08/03/2025 1:17 PM GAUGE MACHINE OPERATOR Cheng Franco MD LAB BLOOD ORDERABLES Cherrie l Result [facility] One [facility] Department [place] [address] * (ABNORMAL) Comprehensive metabolic panel (08/03/2025 1:10 PM GAUGE MACHINE OPERATOR) Sodium 133(L) 135 - 145 mmol/L Potassium, pl 4.8 3.3 - 4.9 mmol/L [facility] Chloride 90(L) 97 - 110 mmol/L [facility] CO2 34(H) 22 - 32 mmol/L [facility] Anion gap 9 2 - 15 mmol/L [facility] BUN 19 6 - 25 mg/dL [facility] Creatinine 0.52(L) 0.80 - 1.30 mg/dL [facility] Glucose 135 70 - 199 mg/dL [facility] Comment: Interpretive Data Fasting glucose >/= 126 [...] classification and Diagnosis of Diabetes Diabetes Care 202; 46: S19-S40. Current interpretive data was last revised 2022. Calcium 9.5 8.5 - 10.3 mg/dL [facility] Bilirubin, total 0.3 0.1 - 1.2 mg/dL [facility] Protein, pl 6.7 6.5 - 8.5 g/dL [facility] Albumin 3.8 3.5 - 5.0 g/dL [facility] Alk phos 157(H) 40 - 130 Units/L [facility] ALT 73(H) 7 - 55 Units/L [facility] AST 75(H) 10 - 50 Units/L [facility] Comment:Hemolyzed; result ma y be falsely elevated Blood 08/03/2025 1:10 PM GAUGE MACHINE OPERATOR 08/03/2025 1:19 PM GAUGE MACHINE OPERATOR Cheng Franco MD LAB BLOOD ORDERABLES Cherrie l Result Performing Organization Address City/[facility]/ZIP Co de Phone Number [facility] Department [place] [address] * Thyroid Function [facility] (08/03/2025 1:10 PM GAUGE MACHINE OPERATOR) TSH 1.81 0.30 - 4.20 mcIUnit/mL Blood 08/03/2025 1:10 PM GAUGE MACHINE OPERATOR 08/03/2025 1:19 PM GAUGE MACHINE OPERATOR Cheng Franco MD LAB BLOOD ORDERABLES Cherrie l Result Performing Organization Address City/[facility]/ZIP Co de Phone Number [facility] [place] [address] documented in this encounter Visit Diagnoses Diagnosis Prophylaxis for chemotherapy-induced neutropenia Malignant neoplasm metastatic to bone (HCC) Small cell carcinoma of lung, unspecified laterality, unspecified part of lung (HCC) documented in this encounter Orders Appointment Requests Count Last Ordered Date Fi rst Ordered Date ONCBCN LAB APPOINTMENT 1 08/03/2025 documented in this encounter Care Teams Business Team Leader Relationship Specialty Start Date End Date Carmen Artis [address] [place] [address] PCP - General Family Medicine 03/09/25 Cheng Franco MD [address] [place] [address] Medical Oncologist/Electronic Controls Repairer Supervisor Medical Oncology 04/05/25 Yuval Licona MD [address] [facility] [address] [place], [place] [id number] Referring Physician Thoracic Surgery 04/05/25 documented as of this encounter
--- OUTSIDE RECORDS SUMMARY | 2025-08-03 13:40 | XMS_ITS | Encounter Summary ---
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) Procedures CT head with contrast Demetra Savage NP [address] [facility] [address] [place] [address] Phone: tel: fax: [address] [address] Referral ID Status Reason Start Date Expiration Date V isits Requested Visits Authorized [id number] Authorized 08/03/2025 09/02/[address] MARKETING EXECUTIVE * Diagnostic Imaging (Routine) - Authorized Specialty Diagnoses / Procedures Referred By Contac t Referred To Contact Radiology Diagnoses 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 [address] [place] [address] Referral ID Status Reason Start Date Expiration Date V isits Requested Visits Authorized [id number] Authorized 08/03/2025 09/02/[address] MARKETING EXECUTIVE Reason for Visit * Consultation (Routine) - Authorized Specialty Diagnoses / Procedures Referred By Contac t Referred To Contact Oncology Diagnoses Pulmonary nodules Mass of upper lobe of left lung Yuval Licona MD [facility] [address] [place] [address] Phone: tel: fax: [facility] Medicine Oncology [facility]0 [facility] Floor [address] [place] [address] Phone: tel: fax: Referral ID Status Reason Start Date Expiration Date Visits Requested Visits Authorized [id number] Authorized Specialty Services Required 03/29/2025 10/03/2025 [id number] Encounter Details Date Type Department Care Team (Late st Contact Info) Description 08/03/2025 1:40 PM DIRECT MARKETING EXECUTIVE Office Visit [facility] Medicine Oncology [address] [facility] Floor [address] [place] [address] Cheng Franco MD [address] [facility] [address] [place] [address] Small cell lung cancer in adult (HCC) (Primary Dx); Small cell carcinoma of lung metastatic to [...] often do you attend chur ch or mu-ism services? 1 to 4 times per year 04/14/2025 Do you belong to any clubs o r organizations such as pentecostalism groups, unions, fraternal or athletic groups, or [...] any time in the past 12 m [facility], were you homeless or living in a chcf (including now)? No 04/14/2025 Social Connection and Isolation Panel Answer Date Recorded In a typical week, how many times do you talk on the phone with family, friends, or neighbors? More than three times a week 05/26/2025 How often do you get togethe r with friends or relatives? More than three times a week 05/26/2025 How often do you attend chur ch or mu-ism services? 1 to 4 times per year 05/26/2025 Do you belong to any clubs o r organizations such as pentecostalism groups, unions, fraternal or athletic groups, or [...] any time in the past 12 m [facility], were you homeless or living in a chcf (including now)? No 05/26/2025 [facility] Utilities Answer Date Recorded In the past 12 months has th e electric, gas, oil, or water company threatened to [...] Sign Reading Time Taken Comments Blood Pressure 122/71 08/03/2025 1:19 PM DIRECT MARKETING EXECUTIVE Pulse 100 08/03/2025 1:19 PM DIRECT MARKETING EXECUTIVE Temperature 36.4 C (97.5 F) 08/03/2025 1:19 PM DIRECT MARKETING EXECUTIVE Respiratory Rate 19 08/03/2025 1:19 PM DIRECT MARKETING EXECUTIVE Oxygen Saturation 96% 08/03/2025 1:19 PM DIRECT MARKETING EXECUTIVE Inhaled Oxygen Concentration - - Weight 53.1 kg (117 lb) 08/03/2025 1:19 PM DIRECT MARKETING EXECUTIVE Height - - Body Mass Index 15.87 04/07/2025 7:21 PM CDT documented in this encounter Functional Status documented as of this encounter Progress Notes * Demetra Savage NP - 08/03/2025 1:40 PM CST Images from the original note were not included. Oncology Medicine Follow Up Oncology History Overview Note DIAGNOSIS: Extensive stage small-cell lung cancer arising from the left lung with metastasis to the liver and bones diagnosed 04/09/2025 GENOMIC AND IMMUNOLOGIC DATA: Tempus XT testing on liver biopsy specimen 04/09/2025 shows CDH2 p. E216* VAF 40.6%, EP300 p.[id number] VAF 43.3%, RB1 c.[id number] VAF 87.6%, SMARCA4 [...] due to fatigue, symptomatic anemia and weakness. Maintenance atezolizumab cycle five started 08/03/2025. Small cell carcinoma of lung metastatic to [...] Diagnosis SCLC (small cell lung carcinoma) (HCC) Jack Sim Carty is 75-year-old male with extensive stage small-cell lung cancer who presents to clinictoday in consideration to receive cycle 5 of maintenance immunotherapy. Since his last visit, he reports much improvement in his overall performance status. He is working with physical therapy twice a week and ambulating around his house with the use of a walker. He does continue to focus on his secretions and his bowel movements. He is doing incentive spirometer and Acapella device several timesthroughout the day. He is delighted when he is able to cough up some sputum. He is sad when he is not able to cough up any sputum that day. He reports some abdominal fullness and flatulence. His appetite is slightly improved. Weight is stable. Most recently, he was treated locally for pneumonia. Hewas treated with 7 days of Levaquin. Additionally, his daughter is concerned that he may have some depression. He denies any worsening shortness of breath. He does have shortness of breath when he has an anxiety attack which resolves after he is able to relax. He denies any diarrhea. He has been taking probiotics daily since staying with his daughter Zurdo. PAST MEDICAL HISTORY: BPH Ex smoker, 1PPD [...] any recreational drug use. He lives in [place] with his . He has 7 kids all of whom live in [place] and two kids live close by in [place]. He is a retired . REVIEW OF SYSTEMS: Per history of presenting illness, all other systems were reviewed and negative. PERFORMANCE STATUS: ECOG PS 2 Objective Vitals: Most Recent : BP: 122/71 Temp: 36.4 ??C (97.5 ??F) Temp src: Temporal Pulse: 100 Resp: 19 SpO2: 96 % Weight: 53.1 kg (117 lb) Physical Exam: Blood pressure 122/71, pulse 100, temperature 36.4 ??C (97.5 ??F), temperature source Temporal, resp. rate 19, weight 53.1 kg (117 lb), SpO2 96%. General: He is in no acute distress, [...] left cheeks concerning for possible cutaneous malignancy. Lab/Radiology/Diagnostic Review: CBC: Lab Results Component Value Date WBC 14.99 (H) 08/03/2025 HGB 9.8 (L) 08/03/2025 HCT 29.3 (L) 08/03/2025 MCV 97.3 (H) 08/03/2025 LABPLAT 425 (H) 08/03/2025 NEUTROABS 13.07 (H) 08/03/2025 CMP: Lab Results Component Value Date SODIUM 133 (L) 08/03/2025 POTASSIUM 4.8 08/03/2025 CO2 34 (H) 08/03/2025 BUNSER 19 08/03/2025 GLUCOSE 135 08/03/2025 CREATININE 0.52 (L) 08/03/2025 CALCIUM 9.5 08/03/2025 CHLORIDE 90 (L) 08/03/2025 ALBUMIN 3.8 08/03/2025 AST 75 (H) 08/03/2025 ALT 73 (H) 08/03/2025 ALKPHOS 157 (H) 08/03/2025 BILITOT 0.3 08/03/2025 PROT 6.7 08/03/2025 ANIONGAP 9 08/03/2025 Hematology Lab History Latest Ref Rng & Units 05/31/2025 10:42 06/22/2025 13:05 07/13/2025 08:13 08/03/2025 13:10 Labs - Hematology WBC 3.80 - 9.90 K/cumm 11.66 10.94 8.76 14.99 Total Hb, POC 13.0 - 17.5 g/dL 10.7 10.5 9.3 9.8 Hct 38.9 - 50.3 % 32.5 31.9 26.6 29.3 Plt 150 - 400 K/cumm 321 474 251 425 Neutrophil abs 1.50 - 6.50 K/cumm 10.52 9.15 7.34 13.07 Lymphocytes, abs 0.80 - 3.30 K/cumm 0.86 0.76 0.71 0.71 Chem/LFT Lab History Latest Ref Rng & Units 05/31/2025 10:42 06/22/2025 07/13/2025 08:13 08/03/2025 13:10 Labs-Chem/LFT Sodium 135 - 145 mmol/L 134 139 127 133 Creatinine 0.80 - 1.30 mg/dL 0.54 0.54 0.42 0.52 Bilirubin, total 0.1 - 1.2 mg/dL 0.4 0.3 0.2 0.3 AST 10 - 50 Units/L 40 39 33 75 ALT 7 - 55 Units/L 44 37 32 73 Alk phos 40 - 130 Units/L 76 117 89 157 CrCl- Actual Body Weight (Cockcroft-Gault) 84.8 91.4 112.7 89.3 Details More abnormal values are hidden. Newest [...] chemotherapy and his blood counts are recovering. Restaging CT imaging on 07/13/2025 showed ongoing response to treatment, with decrease in his pulmonary metastatic disease and liver metastases. There was a comment made regarding subcentimeter abdominal adenopathy, which is likely reactive. In addition a left iliac sclerotic lesion wasnoted, which had been previously noted on PET-CT as well, and clinically likely represents ongoing treatment response. Carboplatin was dropped with cycle 4 due to fatigue, poor appetite, dyspnea, anemia. He has had significant improvement in his performance status over the past few weeks. He was treated locally for pneumonia since his last visit in treated with antibiotics. Today, he is feeling much better with improvement in his breathing. No recent evidence of infection. We will proceed with cycle 5 of treatment today, which includes maintenance atezolizumab. He will return to clinic in 3 weeks with restaging imaging. He was scheduled for brain MRI yesterday evening. However, he was unable to lie flat. Therefore, will obtain CT of the head in 3 weeks with his thoracic imaging. We will forego lurbinectedin being added in the maintenance setting due to chemotherapy-induced toxicities and need for discontinuing carboplatin with cycle 4 of chemotherapy. He knows to call the office with any changes, questions, or concerns. Hyponatremia. Sodium today 133, much improved from previous visit. He was encouraged to continue toadd table salt to his diet. Pancytopenia secondary to chemotherapy. He received Neulasta on body injection with cycle 4. White blood cell count today 14.99. Anemia slowly improving with hemoglobin 9.8 today. Will continue to monitor closely. Chemotherapy is complete. Elevation of ALT and AST. He has grade 1 liver enzyme elevation. He will stop his atorvastatin, as this may be contributing. He will undergo imaging of his liver in 3 weeks to assess for metastatic disease. It is possible this is also related to immunotherapy and we will continue to monitor closely. No need to hold the dose today, as this is grade 1. Skin lesions. He has an ulcerated lesion to the nose and left cheek, areas of sun exposure. Will refer to a utility worker film processing for further evaluation. Poor appetite. His appetite is slowly improving. His mirtazapine was most recently increased to 15 mg daily. He will continue mirtazapine 15 mg daily. Difficulty sleeping. Continue trazodone 50 mg nightly. Depression. Will continue with mirtazapine 15 mg nightly. Will make a referral to [facility]. Goals of Care. This is discussed in detail with him today in clinic. He is agreeable to short term intubation and antibiotics. He is not agreeable to CPR. Demetra Savage, MSN, MACHINE TOOL OPERATOR- Thoracic Oncology Nurse Practitioner [facility] [place] Social Insurance Administrator completed by using [employer] Direct speaking software, therefore, transcriptionvariances may occur Cosigned by Cheng Franco MD at 08/03/2025 4:59 PM DIRECT MARKETING EXECUTIVE CT MARKETING EXECUTIVE CT MARKETING EXECUTIVE documented in this encounter Plan of Treatment Scheduled Orders Name Type Priority Associated Diagnoses Orde r Schedule CBC with auto differential Lab STAT Prophylaxis for chemotherapy-induced neutropenia Malignant neoplasm metastatic to bone (HCC) Small cell carcinoma of lung, unspecified laterality, unspecified part of lung (HCC) Expected: 08/24/2025, Expires: 08/24/2026 Comprehensive metabolic panel Lab STAT Prophylaxis for chemotherapy-induced neutropenia Malignant neoplasm metastatic to bone (HCC) Small cell carcinoma of lung, unspecified laterality, unspecified part of lung (HCC) Expected: 08/24/2025, Expires: 08/24/2026 Thyroid Function [place] [facility] Routine Prophylaxis for chemotherapy-induced neutropenia Malignant neoplasm metastatic to bone (HCC) Small cell carcinoma of lung, unspecified laterality, unspecified part of lung (HCC) Expected: 08/24/2025, Expires: 08/24/2026 CT Chest Abdomen Pelvis W Contrast Imaging Schedule ANNA, Read ANNA (Appt Today, Awaiting Results) 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) Malignant neoplasm metastatic to bone (HCC) Small cell carcinoma of lung, unspecified laterality, unspecified part of lung (HCC) Expected: 08/24/2025, Expires: 08/03/2026 CT head with contrast Imaging Schedule R outine, Read Routine (OP Routine) Small cell lung cancer in adult (HCC) 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) Expected: 08/24/2025, Expires: 08/03/2026 documented as of this encounter Visit Diagnoses Diagnosis Small cell lung cancer in adult (HCC)- Primary 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) Prophylaxis for chemotherapy-induced neutropenia Malignant neoplasm metastatic to bone (HCC) Small cell carcinoma of lung, unspecified laterality, unspecified part of lung (HCC) documented in this encounter Discontinued Medications Medication Sig Discontinue Reason Start Date End Da te mirtazapine (REMERON) 7.5 mg tablet Take 1 tablet (7.5 mg total) by mouth nightly Patient Reported 06/22/2025 08/03/2025 atorvastatin (LIPITOR) 80 mg tablet Take 1 tablet (80 mg total) by mouth daily Patient Reported 07/23/2024 08/03/2025 atorvastatin (LIPITOR) 20 mg tablet TAKE 1 TABLET BY MOUTH DAILY AT NIGHT 07/23/2025 08/03/2025 documented as of this encounter Historical Medications * This list may reflect changes made after this encounter. mirtazapine (REMERON) 15 mg tablet Take 1 tablet (15 mg total) by mouth nightly 07/27/2025 melatonin 1 mg tablet,chewable Take 1 mg by mouth nightly as needed ipratropium-albut Christina (DUO-NEB) 0.5-2.5 mg/3 mL nebulizer solution 08/03/2025 atorvastatin (LIPITOR) 20 mg tablet TAKE 1 TABLET BY MOUTH DAILY AT NIGHT 07/23/2025 08/03/2025 added in this encounter Orders Consult Count Last Ordered Date First Orde red Date ANCILLARY ONCOLOGY SERVICES REQUEST 1 08/03 Appointment Requests Count Last Ordered Date Fi rst Ordered Date ONCBCN CLINIC APPOINTMENT REQUEST 2 025 ONCBCN LAB APPOINTMENT 1 08/03/2025 ONCBCN RETURN CHEMO 2HRS 1 08/03/2025 documented in this encounter Care Teams Roving Winder Relationship Specialty Start Date End Date Carmen Artis [address] [place] [address] PCP - General Family Medicine 03/09/25 Cheng Franco MD [address] [place] [place] [address] Medical Oncologist/Food Service Order Clerk Medical Oncology 04/05/25 Yuval Licona MD [address] [place] [address] Referring Physician Thoracic Surgery 04/05/25 documented as of this encounter
--- OUTSIDE RECORDS SUMMARY | 2025-08-03 14:30 | XMS_ITS | Encounter Summary ---
Author Organization [facility] Healthcare Address [address] [place] [address] Care Team Providers Care Nutrition Professor Name Role Phone Carmen Artis Primary Care Provider [phone] Cheng Franco MD Unavailable Yuval Licona MD Unavailable Reason for Visit * Episode Based Medications (Routine) - Authorized Specialty Diagnoses / Procedures Referred By Contac t Referred To Contact Diagnoses Prophylaxis for chemotherapy-induced neutropenia Malignant neoplasm metastatic to bone (HCC) Small cell carcinoma of lung, unspecified laterality, unspecified part of lung (HCC) Andree Rawls MD [address] [facility] [address] [place] [address] Phone: tel: fax: [facility] [address] [facility] [address] [place] [address] Referral ID Status Reason Start Date Expiration Date V isits Requested Visits Authorized [id number] Authorized 04/13/2025 10/03/2025 1 20 Encounter Details Date Type Department Care Team (Late st Contact Info) Description 08/03/2025 2:30 PM FRIED CAKE MAKER Infusion [facility] [address] [facility] [address] [place] [address] Small cell carcinoma of lung, unspecified laterality, unspecified part of lung (HCC) (Primary Dx); Prophylaxis for chemotherapy-induced neutropenia; Malignant neoplasm metastatic to bone (HCC) Social History Tobacco Use Types Packs/Day [...] often do you attend chur ch or jehovah's witness services? 1 to 4 times per year 04/14/2025 Do you belong to any clubs o r organizations such as buddhist groups, unions, fraternal or athletic groups, or [...] any time in the past 12 m [facility], were you homeless or living in a prison (including now)? No 04/14/2025 Social Connection and Isolation Panel Answer Date Recorded In a typical week, how many times do you talk on the phone with family, friends, or neighbors? More than three times a week 05/26/2025 How often do you get togethe r with friends or relatives? More than three times a week 05/26/2025 How often do you attend chur ch or jehovah's witness services? 1 to 4 times per year 05/26/2025 Do you belong to any clubs o r organizations such as buddhist groups, unions, fraternal or athletic groups, or [...] any time in the past 12 m [facility], were you homeless or living in a prison (including now)? No 05/26/2025 [facility] Utilities Answer Date Recorded In the past 12 months has [employer], gas, oil, or water [employer] threatened to shut off services in your [...] Functional Status documented as of this encounter Nursing Notes * Gianna Chavez RN - 08/03/2025 2:30 PM CST Oncology Nursing Note [facility] Sim Carty is a 75 y.o. male who presents for treatment cycle 5, day 1 of Atezolizumab. Pre-treatment Nursing Assessment Nursing Assessment LOC: Alert, Awake Fatigue: Constant Any falls since your last visit?: No Orientation: Oriented x4 Behavior: Calm Speech: Clear Language: No aphasia Peripheral Neuropathy: No Shortness of Breath?: Yes Lungs auscultated PRN: No Pt is on oxygen?: Yes Appetite: Fair Nausea/Vomiting: No Diarrhea: No Constipation: No Last BM Date: 08/03/25 Skin Condition/Temp: Dry, Warm Swelling: No Additional Notes: Encounter Vitals BP: 122/71 (08/03/2025 1:19 PM) Pulse: 100 (08/03/2025 1:19 PM) Resp: 19 (08/03/2025 1:19 PM) Temp: 36.4 ??C (97.5 ??F) (08/03/2025 1:19 PM) Temp src: Temporal (08/03/2025 1:19 PM) SpO2: 96 % (08/03/2025 1:19 PM) Weight: 53.1 kg (117 lb) (08/03/2025 1:19 PM) Pain Score: 0 - No pain Treatment Patient: met treatment parameters Pre blood return: Brisk Sim Carty tolerated treatment well. Patient was frequently observed and monitored throughout the administration of their treatment. Additional Notes: Patient tolerated treatment well. No reaction noted . Discharged in a stable condition with follow up appointments . No questions or concerns at this time .Will call team with any issues that arise. Post blood return: Brisk IV access post infusion: NS Patient Education Treatment Education: Information/teaching given to patient including fall prevention Response: Verbalizes understanding Discharge Plan Discharge instructions given to patient. Future appointments given and reviewed with treatment plan. Discharge Mode: Wheelchair Accompanied by: Self and Family Discharged To: Home D CAKE MAKER documented in this encounter Plan of Treatment Not on file documented as of this encounter Visit Diagnoses Diagnosis Small cell carcinoma of lung, unspecified laterality, unspecified part of lung (HCC)- Primary Prophylaxis for chemotherapy-induced neutropenia Malignant neoplasm metastatic to bone (HCC) documented in this encounter Administered Medications Inactive Administered Medications - up to 3 most recent administrations Medication Order MAR Action Action Date Dose Rate Site atezolizumab (TECENTRIQ) 1,200 mg in sodium chloride 0.9% 250 mL IVPB 1,200 mg, intravenous, at 590 mL/hr, Administer over 30 Minutes, Once, On Sat08/03/25 at 1515, For 1 dose, - If first infusion was tolerated, may give subsequent infusions over 30 minutes. - If first infusion was NOT tolerated, administer subsequent infusions over 60 minutes and consult with physician for premedication orders.Indications:Prophylaxi s for chemotherapy-induced neutropenia,Malignant neoplasm metastatic to bone (HCC),Small cell carcinoma of lung, unspecified laterality, unspecified part of lung (HCC) New Bag 08/03/2025 3:08 PM FRIED CAKE MAKER 1,200 mg 590 mL/hr sodium chloride 0.9% infusion 0-999 mL/hr, intravenous, As needed, For priming and flushing, Starting on Sat08/03/25 at 1440, Infuse 20 ml at the same rate the drug was infusing to ensure full drug delivery.Indications:Malignan t neoplasm metastatic to bone (HCC) New Bag 08/03/2025 2:43 PM FRIED CAKE MAKER 70 mL/hr 70 mL/hr documented in this encounter Orders Nursing Count Last Ordered Date First Orde red Date ONCBCN NURSING COMMUNICATION 4 1 08/03/2025 ONCBCN TREATMENT PARAMETERS 3 1 08/03/2025 Appointment Requests Count Last Ordered Date Fi rst Ordered Date ONCBCN RETURN CHEMO 2HRS 1 08/03/2025 documented in this encounter Care Teams Nutrition Professor Relationship Specialty Start Date End Date Carmen Artis [address] [place] [address] PCP - General Family Medicine 03/09/25 Cheng Franco MD [address] [place] [address] Medical Oncologist/Reel Worker Medical Oncology 04/05/25 Yuval Licona MD [address] [facility] [address] [place] [address] Referring Physician Thoracic Surgery 04/05/25 documented as of this encounter
[2025-08-08 11:36] VITALS: BP 167/81; PULSE 105; RESP 19; TEMP 36.8; O2SAT 97; BMI 17.6
--- OUTSIDE RECORDS SUMMARY | 2025-08-08 11:41 | XMS_ITS | Data Portability ---
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 [email or web address] Not available 03/31/2018 13:39:49 08/19/2018 08/19/2018 68-year-old male patient that presents for follow up. [email or web address] Not available 08/19/2018 16:13:40 12/16/2018 12/16/2018 68 year old male patient who presents for follow up. [email or web address] Not available 12/16/2018 15:57:36 Plan of Treatment Reminders Order Date Submit Date Provider Last Modified By Organization Details Last Modified Time Details Appointments None recorded. Lab None recorded. Referral pulmonolog ist referral 2017 018 [email or web address] Laurie Ayala MD, [address] [facility], [place], [address], 8 09:23:33 Procedures None recorded. Surgeries None recorded. Imaging CT, chest, w/o contrast - [facility] 2017 018 ALEXANDRA [facility], [address] [place], [address], 8 12:01:19 Medication Orders Symbicort 80 mcg-4.5 mcg/actuat ion HFA aerosol inhaler 2017 018 INTERFACE [facility] [address], [address] [place] [address], [place], [address], 8 13:43:22 ProAir HFA 90 mcg/actuat ion aerosol inhaler 2017 018 INTERFACE [place] [address], [address] [place] [address] Road, [place], [address], 8 13:43:22 magnesium oxide 400 mg (241.3 mg magnesium) tablet 2017 018 INTERFACE [place] [address], [address] [place] [address], [place], [address], 8 16:15:45 famotidine 20 mg tablet 2017 018 INTERFACE [place] [address], [address] [place] [address], [place], [address], 8 16:17:10 meclizine 25 mg tablet 2017 018 [place] [address], [address] [place] [address], [place], [address], 8 16:15:46 atorvastat in 20 mg tablet 2017 018 [place] [address], [address] [place] [address], [place], [address], 8 16:13:49 Plavix 75 mg tablet 2017 018 [place] [address], [address] [place] [address], [place], [address], 8 16:16:59 Patient TargetsNo targets recorded. Patient Instructions Encounter Date Encounter Id Patient Instructions Last Modified By Organization Details Last Modified Time 03/31/2018 [id number] chronic obstructive pulmonary disease (COPD): care instructions [facility] Not available 03/31/2018 13:43:15 learning about copd and how to prevent lung infections [facility] Not available 03/31/2018 13:43:15 complete PFT w/ post bronchodilator spirometry* [email or web address] Not available 04/30/2018 09:22:13 08/19/2018 [id number] chronic obstructive pulmonary disease (COPD): care instructions [email or web address] Not available 08/19/2018 16:34:22 learning about copd and how to prevent lung infections [email or web address] Not available 08/19/2018 16:34:22 Casi Nowak, hereby attest I personally performed and dictated the services documented in the History of Present Illness, Review of Symptoms, Physical Exam, Assessment and Plan and agree the documentation accurately represents these services and the decisions I made. Dr. Casi Ayala M.D. 08/19/2018 3:13 PM Radha Nowak, acting as a scribe for Dr. Casi Ayala, to document his verbalization of the History of Present Illness, Review of Symptoms, Physical Exam, Assessment and Plan. Tatiana Davila 08/19/2018 3:13 PM [email or web address] Not available 08/19/2018 16:16:22 12/16/2018 [id number] chronic obstructive pulmonary disease (COPD): care instructions [email or web address] Not available 12/16/2018 16:03:55 learning about copd and how to prevent lung infections [email or web address] Not available 12/16/2018 16:03:55 Casi Nowak, hereby attelpidio I personally performed and dictated the services documented in the History of Present Illness, Review of Systems, Physical Exam, Assessment and Plan and agree the documentation accurately represents these services and the decisions I made. Dr. Casi Ayala M.D. 12/16/18 2:30 pm Renée Nowak, acting as a scribe for Dr. Casi Ayala, to document his verbalization of the History of Present Illness, Review of Systems, Physical Exam, Assessment and Plan. 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 Referring Physician: Zurdo Cruz, Family Medicine, Encounter Date: 01/07/2018 Results Created Date Observation Date Name Description Value Unit Range Abnormal Flag Note LastModifiedBy Organization Detail LastModifiedTime 07/11/20 18 07/11/2018 CT, chest , w/o contr ast R91.8 IMAGIN G OF LUNG ABNORM AL Proced ure Acknow ledge Date: 2017 09:11 AM EXAM: CT scan of the chest withou t contra st HISTOR Y: Abnorm al imagin g of the lung TECHNI QUE: Helica l imagin g of the chest was perfor med withou t contra st. 5 mm thin axial images and wolff l and sagitt al recons tructi ons were provid ed for interp retati on. Compar gely 2017 CT scan of the chest. FINDIN GS: There is stable appear ance of biapic al scarri ng and pleura l thicke rony seen on axial image #6. Emphys ematou s change s are seen within the lungs. There is no infilt rate or consol idatio n. The heart is normal size. There is hyperi nflati on of the lungs bilate rally. No lytic or blasti c lesion s are seen within the osseou s struct ures. Multip le nonobs tructi ng calcul i are seen within the calyce s of the kidney s. IMPRES KEITH: Stable appear ance of biapic al pleura l thicke rony and scarri ng. Pulmon myla emphys kong. Nonobs tructi ng nephro lithia sis seen within the kidney s. DICTAT ED DATE: 1056 DICTAT ED BY: Pamela Greenwood M.D. TRANSC RIBED DATE: 1056 TRANSC RIBED BY: IAIN SIGNED BY: Pamela Greenwood M.D. DT: 2017 10:56 AM Dictat ed By: PAMELA GREENWOOD MD DF: 2017 10:56 AM Signed By: PAMELA GREENWOOD MD Provid er(s): Orderi ng Provid er: Result Copies To: Attend ing Doctor : ERI Mendoza Referr ing Doctor : Georgiana salinas Doctor : Tara ing Doctor : Other Health care Provid er: [email or web address] [place] [facility] (Radiology) [address], [place], [address], 08/20/2018 10:05:56 12/02/19 19 12/01/2018 CT, chest , w/o contr ast R91.8 ABNORM AL FINDIN G IN LUNG FIELD Proced ure Acknow ledge Date: 2018 10:30 AM EXAM: CT chest withou t contra st. HISTOR Y: Abnorm al lung raza findin g. Compar gely: 2017. Techni que: CT chest was perfor med withou t contra st. Axial, wolff l and sagitt al recons tructi ons were obtain ed. Findin gs: Lung window evalua tion demons trates emphys kong/ch ronic obstru ctive pulmon myla diseas e. Scarri ng seen at the bilate ral lung apices . Nodula r densit y the right lung apex seen axial image number six appear s unchan ged from axial image #6 of the previo us CT there is a stable subple ural left lung upper lobe 5 mm nodule presen t axial image number 11 unchan ged from axial image number 11 previo usly.. Thorac ic soft tissue evalua tion demons trates no defini tive pathol ogical ly enlarg ed axilla ry or medias tinal lympha denopa thy identi fied. Hilar lympha denopa thy is not well assess ed in the absenc e of IV contra st. Cardia c size is within normal limits . Calcif ied hilar lymph nodes sugges t old granul omatou s diseas e The upper abdome n demons trates calcif ied bilate ral kidney stones . There is a stable low-de nsity right adrena l 2.4 cm nodule measur ing negati ve 15 HU in densit y at axial image number 61. Bone window evalua tion demons trates thorac ic spine degene rative change s. Impres keith: 1. Chroni c obstru ctive pulmon myla diseas e. 2. Stable 5 mm subple ural left lung upper lobe nodule and stable likely nodula r scarri ng at the right lung apex. Recomm end contin ued CT chest follow up in 6 months . 3. Old granul omatou s diseas e. 4. Findin gs sugges ting a right lipid rich adrena l adenom a. 5. Kidney stones . DICTAT ED DATE: 1525 DICTAT ED BY: Johnathan Hill M.D. TRANSC RIBED DATE: 1525 TRANSC RIBED BY: IAIN SIGNED BY: Johnathan Hill M.D. DT: 2018 03:25 PM Dictat ed By: JOHNATHAN HILL MD DF: 2018 03:25 PM Signed By: JOHNATHAN HILL MD Suppor tindiego Provid er(s): Orderi ng Provid er: Result Copies To: Attend ing Doctor : ERI Mendoza Referr ing Doctor : Georgiana salinas Doctor : Tara byers Doctor : Other Health care Provid er: [address] (Radiology) [address] [facility], [place], [address], 12/24/2018 14:58:24 Result Notes Documentation Provider Name and Address Organization Details Recorded Time Ct, Chest, W/o Contrast : R91.8 IMAGING OF LUNG ABNORMAL Procedure Acknowledge Date: 07/11/2018 09:11 AM EXAM: CT scan of the chest without contrast HISTORY: Abnormal imaging of the lung TECHNIQUE: Helical imaging of the chest was performed without contrast. 5 mm thin axial images and coronal and sagittal reconstructions were provided for interpretation. Comparison 12/09/2017 CT scan of the chest. FINDINGS: There is stable appearance of biapical scarring and pleural thickening seen on axial image #6. Emphysematous changes are seen within the lungs. There is no infiltrate or consolidation. The heart is normal size. There is hyperinflation of the lungs bilaterally. No lytic or blastic lesions are seen within the osseous structures. Multiple nonobstructing calculi are seen within the calyces of the kidneys. IMPRESSION: Stable appearance of biapical pleural thickening and scarring. Pulmonary emphysema. Nonobstructing nephrolithiasis seen within the kidneys. DICTATED DATE: 07/11/18 105 DICTATED BY: Pamela Greenwood M.D. TRANSCRIBED DATE: 07/11/18 105 TRANSCRIBED BY: IAIN SIGNED BY: Pamela Greenwood M.D. Dictated By: PAMELA GREENWOOD MD DF: 07/11/2018 10:56 AM Signed By: PAMELA GREENWOOD MD Supporting Provider(s): Ordering Provider: Result Copies To: Attending Doctor: LAURIE AYALA Referring Doctor: Consulting Doctor: Admitting Doctor: Other Healthcare Provider: KEVIN Green, [place] - [facility] [place] 08/20/2018 10:05:56 Ct, Chest, W/o Contrast : R91.8 ABNORMAL FINDING IN LUNG FIELD Procedure Acknowledge Date: 12/01/2018 10:30 AM EXAM: CT chest without contrast. HISTORY: Abnormal lung raza finding. Comparison: 07/11/2018. Technique: CT chest was performed without contrast. Axial, coronal and sagittal reconstructions were obtained. Findings: Lung window evaluation demonstrates emphysema/chronic obstructive pulmonary disease. Scarring seen at the bilateral lung apices. Nodular density the right lung apex seen axial image number six appears unchanged from axial image #[address] there is a stable subpleural left lung upper lobe 5 mm nodule present axial image number 11 unchanged from axial image number 11 previously.. Thoracic soft tissue evaluation demonstrates no definitive pathologically enlarged axillary or mediastinal lymphadenopathy identified. Hilar lymphadenopathy is not well assessed in the absence of IV contrast. Cardiac size is within normal limits. Calcified hilar lymph nodes suggest old granulomatous disease The upper abdomen demonstrates calcified bilateral kidney stones. There is a stable low-density right adrenal 2.4 cm nodule measuring negative 15 HU in density at axial image number 61. Bone window evaluation demonstrates thoracic spine degenerative changes. Impression: 1. Chronic obstructive pulmonary disease. 2. Stable 5 mm subpleural left lung upper lobe nodule and stable likely nodular scarring at the right lung apex. Recommend continued CT chest followup in 6 months. 3. Old granulomatous disease. 4. Findings suggesting a right lipid rich adrenal adenoma. 5. Kidney stones. DICTATED DATE: 12/01/18 1525 DICTATED BY: Beatriz Hill M.D. TRANSCRIBED DATE: 12/01/18 1525 TRANSCRIBED BY: IAIN SIGNED BY: Beatriz Hill M.D. Dictated By: BEATRIZ HILL MD DF: 12/01/2018 03:25 PM Signed By: BEATRIZ HILL MD Supporting Provider(s): Ordering Provider: Result Copies To: Attending Doctor: LAURIE AYALA Referring Doctor: Consulting Doctor: Admitting Doctor: Other Healthcare Provider: KONSTANTIN Truj[place], [place] - [facility] [place] 12/24/2018 14:58:24 Problems Name Problem SNOMED Code Status Onset Date Resolution Date Notes Provider Name and Address Organization Details Recorded Time Cerebrovas cular accident 776030648 Active 2017 KEVIN PATRICK, [place] - [facility] [place] 8 15:53:08 Vertebral artery stenosis 50625641 Active 2017 ZURDO CRUZ, KATHRIN [address], [place], [address] , [facility] - [facility] [place] 8 17:20:46 Gastroesop hageal reflux disease 310380957 Active 2017 ZURDO CRUZ CNP [address], [place], [address] , [facility] - [facility] [place] 8 17:20:47 Carotid artery stenosis 59484913 Active 2017 ZURDO CRUZ CNP [address], [place], [address] , [facility] - [facility] [place] 8 08:09:44 Tobacco user [id number] Completed 201703/31/2018 Radha araya LPN null, [place] [facility] [place] 8 13:15:43 Hypomagnes emia 054553713 Active 2017 ZURDO CRUZ CNP [address], [place], [address] , [facility] - [facility] [place] 8 08:09:54 Smoker 04551616 Active 2017 Radha araya LPN null, [place] [facility] [place] 8 13:15:48 Problem Notes None recorded. Medical Equipment None Reported. Allergies No known drug allergies Medications Name Sig Start Date Stop Date Status Note LastModified by Organization Details LastModified Time furosemide 40 mg tablet TAKE ONE TABLET BY MOUTH DAILY active Not Available Not Available No t Available doxycycline hyclate 100 mg capsule TAKE 1 CAPSULE BY MOUTH TWICE DAILY FOR 10 DAYS active Not Available Not Available No t Available atorvastati n 20 mg tablet TAKE 1 TABLET BY MOUTH DAILY AT NIGHT active Not Available Not Available No t Available ipratropium 0.5 mg-albutero l 3 mg (2.5 mg base)/3 mL nebulizatio n soln USE 1 VIAL IN NEBULIZER EVERY 6 HOURS NEEDED FOR WHEEZING active Not Available Not Available No t Available clindamycin HCl 300 mg capsule TAKE 1 CAPSULE BY MOUTH EVERY 8 HOURS FOR 7 DAYS active Not Available Not Available No t Available azithromyci n 250 mg tablet TAKE 2 TABLETS BY MOUTH ON DAY 1, THEN TAKE 1 TABLET DAILY ON DAYS 2-5 active Not Available Not Available No t Available benzonatate 200 mg capsule TAKE 1 CAPSULE BY MOUTH THREE TIMES DAILY NEEDED FOR COUGH active Not Available Not Available No t Available hydrocodone 5 mg-acetamin ophen 325 mg tablet TAKE 1 TABLET BY MOUTH EVERY 4 HOURS NEEDED FOR MODERATE PAIN FOR UP TO 5 DAYS MAX DAILY AMOUNT 6 TABS active Not Available Not Available No t Available prednisone 20 mg tablet TAKE 1 TABLET BY MOUTH IN THE MORNING FOR 5 DAYS active Not Available Not Available No t Available olanzapine 5 mg tablet TAKE 1 TABLET BY MOUTH NIGHTLY active Not Available Not Available No t Available clopidogrel 75 mg tablet TAKE 1 TABLET BY MOUTH IN THE MORNING active Not Available Not Available No t Available aspirin 81 mg tablet,bharathi yed release Take 1 tablet every day by oral route. active Not Available Not Available No t Available alprazolam 0.5 mg tablet TAKE 1 TABLET BY MOUTH EVERY 6 HOURS NEEDED FOR ANXIETY active Not Available Not Available No t Available famotidine 20 mg tablet Take 1 tablet every day by oral route. 2017 active Not Available Not Available Not Avai lable magnesium oxide 400 mg (241.3 mg magnesium) tablet TAKE 1 TABLET BY MOUTH DAILY FOR 4 DAYS active Not Available Not Available No t Available tamsulosin 0.4 mg capsule TAKE 1 CAPSULE BY MOUTH DAILY IN THE EVENING active Not Available Not Available No t Available meclizine 25 mg tablet Take 1 tablet 3 times a day by oral route as needed. 2017 active Not Available Not Available Not Avai lable benzonatate 100 mg capsule TAKE 1 CAPSULE BY MOUTH THREE TIMES DAILY NEEDED FOR COUGH active Not Available Not Available No t Available lidocaine 5 % topical patch USE 1 PATCH EXTERNALL Y IN THE MORNING (REMOVE OLD PATCH AND DISCARD WITHIN 12 HOURS OR DIRECTED) active Not Available Not Available No t Available morphine ER 15 mg tablet,exte nded release TAKE ONE TABLET BY MOUTH EVERY 12 HOURS, MAX OF 30MG DAILY active Not Available Not Available No t Available Longs Adult Low Strength ASA 81 mg tablet,bharathi yed release Take 1 tablet every day by oral route. 01/07 completed Not Available Not Available Not Available furosemide 20 mg tablet TAKE 1 TABLET BY MOUTH IN THE MORNING active Not Available Not Available No t Available insulin lispro (U-100) 100 unit/mL subcutaneou s solution USE PER SLIDING SCALE. 0-70 0 UNITS, 71-140 0 UNITS, 150-220 1 UNIT, 221-300 2 UNITS, 301-399 3 UNITS, GREATER THAN 400 3 UNITS AND CALL PROVIDER active Not Available Not Available No t Available methylpredn isolone 4 mg tablets in a dose pack take by mouth as directed on package active Not Available Not Available No t Available cefdinir 300 mg capsule TAKE 1 CAPSULE BY MOUTH EVERY TWELVE HOURS FOR 7 DAYS active Not Available Not Available No t Available Lipitor 10 mg tablet Take 1 tablet every day by oral route at bedtime. 01/07 completed Not Available Not Available Not Available Mucinex 600 mg tablet, extended release TAKE 2 TABLETS BY MOUTH TWICE DAILY FOR 14 DAYS active Not Available Not Available No t Available Constulose 10 gram/15 mL oral solution TAKE 45 ML BY MOUTH TWICE DAILY active Not Available Not Available No t Available ProAir HFA 90 mcg/actuati on aerosol inhaler Inhale 2 puffs every 4 hours by inhalatio n route. 2017 active Not Available Not Available Not Avai lable Symbicort 80 mcg-4.5 mcg/actuati on HFA aerosol inhaler INHALE 2 PUFFS BY MOUTH TWICE DAILY 2018 active Not Available Not Available Not Avai lable Anoro Ellipta 62.5 mcg-25 mcg/actuati on powder for inhalation Inhale 1 puff every day by inhalatio n route as directed for 30 days. 2017 active Not Available Not Available Not Avai lable Trelegy Ellipta 100 mcg-62.5 mcg-25 mcg powder for inhalation INHALE 1 PUFF BY MOUTH EVERY MORNING active Not Available Not Available No t Available Vitals Date Recorded Body height Body mass index (BMI) Body weight Heart rate Oxygen saturation Oxygen saturation in Arterial blood by Pulse oximetry Systolic And Diastolic Provider Name and Address Organization Details Last Updated DateTime 9 182.88 cm 19.1 kg/m2 20646.5 2 g 87 /min 97 % 97 % 125/74 mm[Hg] Freda DurbinKONSTANTIN beltran [facility] [place] 9 15:06:52 Date Recorded Body weight Body mass index (BMI) Body height Heart rate Oxygen saturation Oxygen saturation in Arterial blood by Pulse oximetry Respiratory rate Systolic And Diastolic Provider Name and Address Organization Details Last Updated DateTime 8 52775.6 7 g 20.1 kg/m2 182.88 cm 78 /min 99 % 99 % 16 /min 110/62 mm[Hg] COLETTE MÉNDEZ LPN [address] 8 15:50:27 Date Recorded Pain severity - 0-10 verbal numeric rating [Score] - Reported Provider Name and Address Organization Details Last Updated DateTime 01/07/2018 0 Not Available [facility] 8 06:38:16 Date Recorded Body height Body mass index (BMI) Body weight Heart rate Oxygen saturation Oxygen saturation in Arterial blood by Pulse oximetry Systolic And Diastolic Provider Name and Address Organization Details Last Updated DateTime 8 182.88 cm 19.3 kg/m2 88275.1 2 g 81 /min 98 % 98 % 158/103 mm[Hg] Radha shaikh [address] 8 13:21:20 Date Recorded Body height Body mass index (BMI) Body weight Heart rate Oxygen saturation Oxygen saturation in Arterial blood by Pulse oximetry Systolic And Diastolic Provider Name and Address Organization Details Last Updated DateTime 8 182.88 cm 19.1 kg/m2 15179.5 2 g 59 /min 98 % 98 % 163/96 mm[Hg] Radha shaikh [address] 8 15:42:16 Social History Question Answer Notes LastModified by Organizat ion Details LastModified Time Tobacco Smoking Status Current Every Day Smoker 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 12/16/2018 Information n ot available 04/17/2019 How Much Tobacco Do You Smoke? 0.5 PPD [email or web address] Information not available 01/07/2018 How Many Years Have You Smoked Tobacco? 55 [email or web address] Information not available 03/31/2018 Sex: Unknown Functional Status None recorded. Mental Status None recorded. Family History Nothing Reported. Medical History No medical history recorded. Past Encounters Encounter ID Performer Location Encounter Start Date Encounter Closed Date Diagnosis/Indication Diagnosis SNOMED-CT Code Diagnosis ICD10 Code Diagnosis IMO Codes Diagnosis Note [id number] ROSARIO MENJIVAR [facility] [address] [facility] [place] [id number] 01/07/2018 15:29:26 01/07/2018 16:20:21 Cerebrovascular accident 268871281 I63.9 . Acute bilateral cerebrovas cular accident with visual field deficits but predominan tly in the left posterior cerebral artery distributi on,status post tPA treatment. Probably atheroembo lic in etiology. S/P IR guided Left proximal vertebral artery ROXANN placement. 2. Severe bilateral carotid artery disease with proximal left vertebral artery disease. Carotid ar jaya stenosis 50493548 I65.29 Vertebral stent placement 01/04/18 Right internal carotid artery stent placement for resolution . Dr. Jarrett high-grade stenosis. Radiology result abnormal 835425669 R93.8 12/09/[address]: Linear opacities seen in the lung apices bilaterall y, right greater left. Are consistent with fibrotic change. Minimal emphysemat ous changes are seen. There is no lobar consolidat ion or effusion. Tobacco user 576753183 Z 72.0 Smokes 1 ppd x 50 years. Hypomagnesemia 377107241 E83.42 Dizziness 688511717 R42 Gastroesop hageal reflux disease 976151803 K21.9 Vertebral artery stenosis 39988693 I65.09 12/13/2017 Left vertebral artery balloon expandable stent placement, which was ultimately dilated to 4 mm diameter with excellent re-establi shment of flow and no acute complicati on. Dr. Martinez [id number] Laurie Ayala MD [facility] [address] [place], [place] [address] 03/31/2018 12:49:53 03/31/2018 13:38:44 Chronic obstructive pulmonary disease 57934745 J44.9 Patient has been smoking for the past 55 years. He has shortness of breath on exertion. He denied any cough, hemoptysis , or chest pain. The patient had a CT chest done on December 08, 2017 which showed emphysemat ous changes. The plan is:1. PFT.2. Start on albuterol inhaler as needed.3. Symbicort 80/4.5 b.i.d..4. Follow-up in 3 months. Imaging of lung abnormal 089557898 R91.[address] had a CT chest done on December 08, 2017 which showed biapical fibrotic changes. There was no evidence of masses or nodules. The plan is:1. Repeat CT chest in June 2018 follow-up 2nd week of June. CT chest done on December 09, 2017:Linea r opacities seen in the lung apices bilaterall y, right greater left. Are consistent with fibrotic change. Minimal emphysemat ous changes are seen. There is no lobar consolidat ion or effusion. No suspicious nodules are seen. The pulmonary interstiti um appears normal. The airways are patent. The heart size is within normal limits. There is no significan t mediastina l or hilar adenopathy . There is no axillary adenopathy . Smoker 93057490 F17.200 The patient was counseled on smoking cessation. He said he will try to cut down. When I see the patient 3 months will talk to him about Chantix. [id number] Laurie Ayala MD [facility] [address] [place], [place] [address] 08/19/2018 15:27:47 08/19/2018 16:26:08 Chronic obstructive pulmonary disease [id number] J44.9 Patient has been smoking for the past 55 years. He has shortness of breath on exertion. He denied any worsening shortness of breath, cough, hemoptysis , or chest pain. Patient has not required uses ProAir inhaler. The plan is:1. Continue Anoro.2. ProAir as needed.3. Follow up the second week of November. PFT done on April 16, 2018:FEV1 over forced vital capacity of 40%.FEV1 1.18 L which is 38% of predicted. FVC 2.91 L which is 62% of predicted. TLC was 9.8 L which is 141% of predicted. DLCO was 12.8 which is 69% predicted. Imaging of lung abnormal [id number] R91.[address] a [address] chest done on December 08, 2017 which showed biapical fibrotic changes. There was no evidence of masses or nodules. The patient had a repeat CT chest was done on July 11, 2018 which showed stable biapical pleural thickening and scarring. Repeat CT chest will be done in November 2018 which will be 1 year from November 2017. If at that time there no changes, there will be no further follow-up. The plan is:1. Repeat CT chest in November of 2018. CT chest 07/11/2018 1. Stable appearance of biapical pleural thickening and scarring. 2. Pulmonary emphysema. 3. Non-obstru cting nephrolith iasis seen within the kidneys. CT chest done on December 09, 2017:Linea r opacities seen in the lung apices bilaterall y, right greater left. Are consistent with fibrotic change. Minimal emphysemat ous changes are seen. There is no lobar consolidat ion or effusion. No suspicious nodules are seen. The pulmonary interstiti um appears normal. The airways are patent. The heart size is within normal limits. There is no significan t mediastina l or hilar adenopathy . There is no axillary adenopathy . Smoker [id number] F17.200 The patient was counseled on smoking cessation. Will continue to encourage smoking cessation. [id number] Laurie Ayala MD PBPM_RPS [facility] [address] [facility] [place] [address] 12/16/2018 14:13:25 12/16/2018 16:01:32 Chronic obstructive pulmonary disease [id number] J44.9 Patient has been smoking for the past 55 years. He has shortness of breath on exertion. He denied any worsening shortness of breath, cough, hemoptysis , or chest pain. Patient has not required uses ProAir inhaler. The patient also stopped using Anoro because he denied any shortness of breath. Patient does have severe obstructio n. The plan is:1. I recommende d to continue Anoro daily.2. Continue ProAir inhaler as needed.3. Follow up 2nd week of November 2019. PFT done on April 16, 2018:FEV1 over forced vital capacity of 40%.FEV1 1.18 L which is 38% of predicted. FVC 2.91 L which is 62% of predicted. TLC was 9.8 L which is 141% of predicted. DLCO was 12.8 which is 69% predicted. Imaging of lung abnormal [id number] R91.[address] a CT chest done on December 08, 2017 which showed biapical fibrotic changes. There was no evidence of masses or nodules. The patient had a repeat CT chest was done on July 11, 2018 which showed stable biapical pleural thickening and scarring. Patient had repeat CT chest was done on December 01, 2018 which showed stable changes. There is a 5 mm nodule in the left lung upper lobe which also appears to be stable compared to the CT scan done in December 09 2017. At this time a repeat CT chest will be done 1 year from now which will be November 2019. The plan is:1. Repeat CT chest 1st week of November 2019.2. Follow up 2nd week of November 2019. CT chest on 12/01/2018: 1. Chronic obstructiv e pulmonary disease. 2. Stable 5 mm subpleural left lung upper lobe nodule and stable likely nodular scarring at the right lung apex. Recommend continued CT chest followup in 6 months. 3. Old granulomat ous disease. 4. Findings suggesting a right lipid rich adrenal adenoma. 5. Kidney stones. CT chest 07/11/2018 1. Stable appearance of biapical pleural thickening and scarring. 2. Pulmonary emphysema. 3. Non-obstru cting nephrolith iasis seen within the kidneys. CT chest done on December 09, 2017:Linea r opacities seen in the lung apices bilaterall y, right greater left. Are consistent with fibrotic change. Minimal emphysemat ous changes are seen. There is no lobar consolidat ion or effusion. No suspicious nodules are seen. The pulmonary interstiti um appears normal. The airways are patent. The heart size is within normal limits. There is no significan t mediastina l or hilar adenopathy . There is no axillary adenopathy . Smoker [id number] F17.200 The patient was counseled on smoking cessation. I recommende d the nicotine patches. The patient said that he will continue to try to quit on his own. He did mention that he quit for 8 days before he went back to smoking. Will continue to encourage smoking cessation. Health Concerns Section Related Observation LastModified by Organization Detai ls LastModified Time None Recorded Concern Status LastModified by Organization Details LastModified Time None Recorded Advance Directives Directive None Recorded Payers Insurance Date Sequence Insurance Name Policy Number Policy Bush Covered Member ID Bush Member ID Guarantor Name 06/08/2025 [employer] - [facility] ([facility]) Sim A Carty [id number] Sim A Carty 03/10/2025 1 [facility] (MEDICARE REPLACEMENT/ADV ANTAGE - HMO) [id number] Sim A Carty [id number] Sim A Carty 01/29/2025 1 MEDICARE [place]: [facility] Sim A Carty [id number] Sim A Carty 12/11/2017 SLIDING FEE SCHEDULE - DISCOUNT Sim A Carty 01/29/2025 1 MEDICARE [place]: [facility] Sim A Carty [id number] Sim A Carty 06/06/2025 [facility] HEALTH INSURANCE - MEDICARE - PART A - INSTITUTIONAL - [facility] [place] (MEDICARE) Sim A Carty [id number] Sim A Carty 06/25/2025 1 [facility] (MEDICARE REPLACEMENT/ADV ANTAGE - PPO) [id number] Sim A Carty [id number] Sim A Carty 06/06/2025 2 [employer] (MEDICARE SUPPLEMENT) PLAN N Sim A Carty [id number] Sim A Carty 01/29/2025 2 [employer] (MEDICARE SUPPLEMENT) Sim A Carty [id number] Sim A Carty Notes Date Note Type Note Provider Name and Address Organization Details Recorded Time 01/07/2018 text/html 1. Patient here to establish care after hospitalization. Patient had a CVA on 12/07/17. 1. Acute bilateral cerebrovascular accident with visual field deficits but predominantly in the left posterior cerebral artery distribution,status post tPA treatment. Probably atheroembolic in etiology. S/P IR guided Left proximal vertebral artery ROXANN placement. 2. Severe bilateral carotid artery disease with proximal left vertebral artery disease. 2. 12/09/[address]: Linear opacities seen in the lung apices bilaterally, right greater left. Are consistent with fibrotic change. Minimal emphysematous changes are seen. There is no lobar consolidation or effusion. ZUROD CRUZ, MACHINE DESIGN TEACHER [address] [place], [address], [facility] - [facility] [place] 01/08/2018 08:10:46 03/31/2018 text/html 68-year-old male patient with past medical history significant for stroke, who presents for evaluation of abnormal imaging. The patient had a CXR done in November then a CT chest done in November/2017 which showed apical fibrotic changed. Today the patient mentioned that he has been having shortness of breath for the past 6 months on exertion, no dyspnea on rest. He denied any cough, chest pain, fever, night sweats, or hemoptysis. The patient does not use any inhalers. The patient has been smoking for the past 55 years around half pack to a pack a day. 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 Laurie Ayala MD [address] [place], [address], [facility] - [facility] [place] 03/31/2018 13:44:04 08/19/2018 text/html 68-year-old male patient with past medical history significant for stroke, who presents for follow up. He was last seen 03/31/2018. The patient mentioned that he feels well today, without any worsening shortness of breath or cough. He denies receiving the flu vaccine yet, but states that he is going to get it soon. He denies fever, chills, night sweats, or hemoptysis. He is compliant with ProAir as needed. He notes that he will only use his ProAir inhaler occasionally, and does not require it on a weekly basis. The patient had a CXR done in November then a CT chest done in November/2017 which showed apical fibrotic changed. The patient has been smoking for the past 55 years around half pack to a pack a day. He continues to smoked around 1/2 a pack to a pack per day. 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 Laurie Ayala MD [address] [place], [place] [address], [place], [address], [place] - [facility] [place] 08/19/2018 16:34:29 12/16/2018 text/html This is a 68-year-old male patient with past medical history that is significant for stroke and COPD who presents for follow up. He was last seen in clinic on 08/19/2018. The patient had a CT scan of the chest performed on 12/01/2018. He arrives today with no complaints and states that he has been feeling fine since his last visit. He denies any worsening shortness of breath, fever, chills, night sweats, or hemoptysis. He has not been compliant with Anoro or his ProAir inhaler due to not experiencing shortness of breath often. The patient has been smoking for the past 55 years, around half pack to a pack a day. He continues to smoke around 1/2 pack per day. The patient states that he quit smoking for a period of 8 days since his last visit. 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 Laurie Ayala MD [address] [place], [place] [address], [place], [address], [place] [facility] [place] 12/16/2018 16:03:58
--- OUTSIDE RECORDS SUMMARY | 2025-08-08 11:42 | XMS_ITS | Clinical Summary ---
Author Organization [facility] Address [address] [place] [address] Care Team Providers Care Watershed Coordinator Name Role Phone Virgil Beaulieu MD Primary Care Provider Allergies Active Allergy Reactions Criticality Noted Date [...] failure with hypoxia (CMS/HCC),Cancer , metastatic to liver (CMS/HCC),Anxiet y state Take 1 Tablet (0.5 mg) by [...] daily. 30 Tablet 05/13/2025 1:34 PM CDT Active guaiFENesin (Mucinex) 600 mg Extended Release [...] breakfast. 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 Panlobular emphysema 11/18/2018 Encounters Date Type Department Care Team Description 06/15/2025 External Device Data [facility] ABSTRACTION Provider, Abstract 05/18/2025 External Device Data [facility] ABSTRACTION Provider, Abstract 05/18/2025 External Device Data [facility] ABSTRACTION Provider, Abstract 05/12/2025 External Device Data [facility] ABSTRACTION Provider, Abstract 05/11/2025 7:50 AM CDT - 05/13/2025 3:13 PM CDT Hospital Encounter [facility] [address] [place] [address] Vivi Valentine MD Ahmad, MD Verito Barajas, MD Rianna COPD with exacerbation (CMS/HCC) Discharge Disposition: Home or Self Care 05/11/2025 Travel from Last 3 Months Family History Medical [...] - 9.8 K/uL 05/13/2025 4:55 AM CDT [facility] RBC 2.25(L) 4.50 - 5.40 M/uL 05/13/2025 4:55 AM CDT [facility] HEMOGLOBIN 7.1(L) 13.6 - 16.5 g/dL 05/13/2025 4:55 AM CDT [facility] HEMATOCRIT 22.1(L) 40.0 - 48.0 % 05/13/2025 4:55 AM CDT [facility] MCV 98.2 82.0 - 99.0 fL 05/13/2025 4:55 AM CDT [facility] MCH 31.6 27.2 - 32.6 pg 05/13/2025 4:55 AM CDT [facility] MCHC 32.1 31.5 - 35.5 g/dL 05/13/2025 4:55 AM CDT [facility] RDW 16.5(H) 11.5 - 14.5 % 05/13/2025 4:55 AM CDT [facility] RDW-STDEV 55.7(H) 37.1 - 48.7 fL 05/13/2025 4:55 AM CDT [facility] PLATELETS 897(H) 140 - 350 K/uL 05/13/2025 4:55 AM T [facility] MPV 8.6(L) 9.3 - 12.4 fL 05/13/2025 4:55 AM CDT [facility] NEUTROPHILS 76 % 05/13/2025 4:55 AM CDT [facility] LYMPHOCYTES 10 % 05/13/2025 4:55 AM CDT [facility] MONOCYTES 13 % 05/13/2025 4:55 AM CDT [facility] EOSINOPHILS 0 % 05/13/2025 4:55 AM CDT [facility] BASOPHILS 0 % 05/13/2025 4:55 AM T [facility] IMMATURE GRANULOCYTES 1 % 05/13/2025 4:55 AM T [facility] Comment:IG (Immature Granulo cyte) count includes Metamyelocytes, Myelocytes, and Promyelocytes NEUTROPHIL ABSOLUTE 9.38(H) 1.90 - 7.00 K/uL 05/13/2025 4:55 AM CDT [facility] LYMPHOCYTE ABSOLUTE 1.27 0.70 - 4.50 K/uL 05/13/2025 4:55 AM T [facility] MONOCYTE ABSOLUTE 1.54(H) 0.10 - 1.30 K/uL 05/13/2025 4:55 AM T [facility] EOSINOPHIL ABSOLUTE 0.00 0.00 - 0.70 K/uL 05/13/2025 4:55 AM CDT [facility] BASOPHILS ABSOLUTE 0.04 0.00 - 0.20 K/uL 05/13/2025 4:55 AM [facility] IMMATURE GRANULOCYTES ABSOLUTE 0.11(H) 0.00 - 0.03 K/uL 05/13/2025 4:55 AM [facility] Blood Venipuncture / Unknown 05/13/2025 4:48 AM CDT 05/13/2025 4:48 AM CDT us Tereso HARPER HEMATOLOGY ORDERABLES Final Re sult [facility] CLZAN# [id number] [place] [address] * (ABNORMAL) BASIC METABOLIC PANEL (05/13/2025 4:48 AM CDT) Only the most recent of2 resultswithin the time period is included. SODIUM 140 136 - 145 mmol/L 05/13/2025 5:24 AM CDT [facility] POTASSIUM 3.8 3.4 - 5.1 mmol/L 05/13/2025 5:24 AM CDT [facility] CHLORIDE 100 98 - 107 mmol/L 05/13/2025 5:24 AM CDT [facility] CO2 32(H) 22 - 29 mmol/L 05/13/2025 5:24 AM T [facility] CALCIUM 8.2(L) 8.6 - 10.4 mg/dL 05/13/2025 5:24 AM T [facility] BUN 25(H) 6 - 20 mg/dL 05/13/2025 5:24 AM T [facility] CREATININE 0.56(L) 0.67 - 1.17 mg/dL 05/13/2025 5:24 AM T [facility] Comment:The GFR result is no t clinically significant on patients <18 or >70 years of age. GLUCOSE 98 74 - 99 mg/dL 05/13/2025 5:24 AM CDT [facility] GFR >60 mL/min/1.7 3 sq meter 05/13/2025 5:24 AM T [facility] Comment:eGFR calculated with 2020 CKD-EPI equation. Vegetarian diet, extremely high or low muscle mass, and may affect results. Cystatin C with Glomerular Filtration Rate is a suitable alternative for these patients. ANION GAP 8 8 - 16 mmol/L 05/13/2025 5:24 AM CDT [facility] Blood Venipuncture / Unknown 05/13/2025 4:48 AM CDT 05/13/2025 4:48 AM CDT Tereso HARPER CHEMISTRY ORDERABLES Final Res ult Performing Organization Address [facility]/ZIP Co de Phone Number [facility] [id number] [place] [address] * MRSA PCR RAPID SCREEN (05/12/2025 4:12 AM CDT) [facility] MRSA PCR RESULT MRSA not detected MRSA not detected 05/12/2025 6:15 AM CDT [facility] Surveillance ANTERIOR NARES SWAB / Unknown Collection / Unknown 05/12/2025 4:12 AM CDT 05/12/2025 4:17 AM CDT Narrative [facility] - 05/12/2025 6:15 AM CDT This assay [...] ORDERAB LES Final Result Performing Organization Address [facility] Co de Phone Number [facility]# [id number] [place] [address] * EXTRA TUBE (URINE CONTAINER) (05/11/2025 5:01 PM CDT) Urine URINE SPECIMEN OBTAINED BY CLEAN CATCH PROCEDURE / Unknown Collection / Unknown 05/11/2025 5:01 PM CDT 05/11/2025 5:01 PM CDT Rianna Sellers MD URINE ORDERABLES Final Result Performing Organization Address [facility]/ZIP Co de Phone Number [facility]# [id number] [place] [address] * (ABNORMAL) TROPONIN 6 HR, 5TH GEN (05/11/2025 4:31 PM CDT) TROPONIN T, 6 HR 5TH GEN 19(H) <=15 ng/L 05/11/2025 5:07 PM CDT [facility] DELTA 6HR TROPONIN T -4 See Interp. 05/11/2025 5:07 PM CDT [facility] Blood Venipuncture / Unknown 05/11/2025 4:31 PM CDT 05/11/2025 4:39 PM CDT Narrative [facility] - 05/11/2025 5:07 PM CDT Troponin elevated. Delta indeterminate. Delay in collection of timed specimen beyond recommended collection interval. Results must be interpreted in clinical context. Vivi Valentine MD CHEMISTRY ORDERABLES Final R esult Performing Organization Address [facility]/ZIP Co de Phone Number [facility]# [id number] [place] [address] * EXTRA TUBE (URINE PAIZ) (05/11/2025 3:55 PM CDT) Urine (Urine, indwelling (Cuadra) catheter) Collection / Unknown 05/11/2025 3:55 PM CDT 05/11/2025 4:18 PM CDT Vivi Valentine MD URINE ORDERABLES Final Resul t Performing Organization Address [facility]/ZIP Co de Phone Number [facility]# [id number] [place] [address] * (ABNORMAL) URINALYSIS WITH REFLEX MICROSCOPIC (05/11/2025 3:55 PM CDT) COLOR UA Yellow Pale to Dark Yellow 05/11/2025 4:53 PM CDT [facility] CLARITY UA Clear Clear 05/11/2025 4:53 PM CDT [facility] SPECIFIC GRAVITY UA 1.023 1.003 - 1.035 05/11/2025 4:53 PM CDT [facility] PH UA 7.0 5.0 - 8.0 05/11/2025 4:53 PM CDT [facility] LEUKOCYTE ESTERASE UA Negative Negative 05/11/2025 4:53 PM CDT [facility] NITRITE UA Negative Negative 05/11/2025 4:53 PM CDT [facility] PROTEIN UA Negative Negative 05/11/2025 4:53 PM CDT [facility] GLUCOSE UA Negative Negative 05/11/2025 4:53 PM CDT [facility] KETONES UA 1+(A) Negative 05/11/2025 4:53 PM CDT [facility] UROBILINOGEN UA Normal <2.0 mg/dL 4:53 PM CDT [facility] BILIRUBIN UA Negative Negative 05/11/2025 4:53 PM CDT [facility] BLOOD UA 2+(A) Negative 05/11/2025 4:53 PM CDT [facility] WBC UA 6-10(A) 0 - 2 /hpf 05/11/2025 4:53 PM CDT [facility] RBC UA 51-100(A) 0 - 2 /hpf 05/11/2025 4:53 PM CDT [facility] BACTERIA UA Negative Negative /hpf 05/11/2025 4:53 PM CDT [facility] EPITHELIAL CELLS, URINE 0-5 0 - 5 /hpf 05/11/2025 4:53 PM CDT [facility] HYALINE CAST None Seen None Seen, 0-2 /lpf 05/11/2025 4:53 PM CDT [facility] Ascorbic Acid UA Positive(A) Negative 025 4:53 PM CDT [facility] Urine (Urine, indwelling (Cuadra) catheter) Collection / Unknown 05/11/2025 3:55 PM CDT 05/11/2025 4:18 PM CDT us Vivi Valentine MD URINE ORDERABLES Final Resul t [facility] CLIA# [id number] [place] [address] * LACTIC ACID (05/11/2025 11:59 AM CDT) LACTIC ACID 1.0 <=2.0 mmol/L 05/11/2025 12:52 PM CDT [facility] Blood Venipuncture / Unknown 05/11/2025 11:59 AM CDT 05/11/2025 12:19 PM CDT us Vivi Valentine MD CHEMISTRY ORDERABLES Final R esult Performing Organization Address City/[facility]/ZIP Co de Phone Number [facility] CLIA# [id number] [place] [address] * BLOOD CULTURE (05/11/2025 11:59 AM CDT) Only the most recent of2 resultswithin the time period is included. BLOOD CULTURE No growth 05/16/2025 2:46 PM CDT [facility] Blood (Peripheral) Venipuncture / Unknown 05/11/2025 11:59 AM CDT 05/11/2025 12:15 PM CDT us Vivi Valentine MD MICROBIOLOGY - GENERAL ORDER ELLA Final Result Performing Organization Address City/[facility]/ZIP Co de Phone Number [facility] CLIA# [id number] [address] [place] [address] * (ABNORMAL) TROPONIN 2 HR, 5TH GEN (05/11/2025 10:15 AM CDT) TROPONIN T, 2 HR 5TH GEN 20(H) <=15 ng/L 05/11/2025 10:47 AM CDT [facility] [employer] [facility] DELTA 2HR TROPONIN T -3 See Interp. 05/11/2025 10:47 AM CDT [facility] Blood Venipuncture / Unknown 05/11/2025 10:15 AM CDT 05/11/2025 10:21 AM CDT Narrative [facility] - 05/11/2025 10:47 AM CDT Troponin elevated. Delta not changing. Vivi Valentine MD CHEMISTRY ORDERABLES Final R esult Performing Organization Address City/[facility]/ZIP Co de Phone Number [facility] CLIA# [id number] [place] [address] * MAGNESIUM LEVEL (05/11/2025 10:15 AM CDT) Pathologist [facility] MAGNESIUM 1.9 1.6 - 2.6 mg/dL 05/11/2025 1:31 PM CDT [facility] Blood Venipuncture / Unknown 05/11/2025 10:15 AM CDT 05/11/2025 10:21 AM CDT Tereso HARPER CHEMISTRY ORDERABLES Final Res ult [facility] CLIA# [id number] [place] [address] * CTA CHEST W AND/OR WO CONTRAST [...] of Iterative Reconstruction Technique. DICTATION LOCATION: Location [address] [place] [address] 05/11/2025 1:53 PM CDT CTA CHEST WITH [...] use of Iterative Reconstruction Technique. DICTATION LOCATION: [address] Vivi Valentine MD CT ORDERABLES Final Result * XR CHEST PA OR AP 1 VW (05/11/2025 9:25 AM CDT) Anatomical Region Laterality Modality Chest Computed Radiogr aphy 05/11/2025 9:26 AM CDT Impressions 05/11/2025 9:29 AM CDT IMPRESSION: 1. No acute pulmonary abnormality DICTATION LOCATION: [address] Narrative 05/11/2025 9:29 AM CDT XR [...] 1. No acute pulmonary abnormality DICTATION LOCATION: [address] Vivi Valentine MD DIAGNOSTIC IMAGING ORDERABLE S Final Result * (ABNORMAL) BLOOD GAS VENOUS (05/11/2025 9:19 AM CDT) [facility] PH BLOOD POC 7.44(H) 7.32 - 7.43 05/11/2025 9:19 AM CDT [facility] PCO2 POC 61(H) 38 - 50 mm Hg 05/11/2025 9:19 AM CDT [facility] PO2 POC 36 28 - 40 mm Hg 05/11/2025 9:19 AM CDT [facility] HCO3 (CALC) POC 41(H) 22 - 29 mmol/L 05/11/2025 9:19 AM CDT [facility] BASE EXCESS POC 14 No Reference Range Established mmol/L 05/11/2025 9:19 AM CDT [facility] O2 SATURATION POC 60 40 - 70 % 05/11/2025 9:19 AM CDT [facility] PH TEMP CORRECT 7.44(H) 7.32 - 7.43 05/11/2025 9:19 AM CDT [facility] PCO2 TEMP CORRECT 61(H) 38 - 50 mm Hg 05/11/2025 9:19 AM CDT [facility] PO2 TEMP CORRECT 36 25 - 40 mm Hg 05/11/2025 9:19 AM CDT [facility] SPECIMEN SOURCE, GASES POC Venous 05/11/2025 9:19 AM CDT [facility] Blood, venous 05/11/2025 9:1 9 AM CDT 05/11/2025 9:23 AM CDT Vivi Valentine MD ABG ORDERABLES Final Result [facility] CLIA# [id number] [place] [address] * RESPIRATORY PATHOGEN PCR PANEL (05/11/2025 8:49 AM CDT) [facility] Respiratory Pathogen PCR Panel NOT DETECTED No respiratory pathogen nucleic acids detected. 05/11/2025 11:33 AM CDT [facility] COVID-19 PCR NOT DETECTED Not Detected 05/11/2025 11:33 AM CDT [facility] Upper Respiratory ENTIRE NASOPHARYNX / Unknown Collection / Unknown 05/11/2025 8:49 AM CDT 05/11/2025 8:52 AM CDT [facility] - 05/11/2025 11:33 AM CDT The Film [...] pertussis Bordetella parapertussis Chlamydophila pneumoniae Mycoplasma pneumoniae iVvi Valentine MD MICROBIOLOGY - GENERAL ORDER ELLA Final Result [facility]# [id number] [place] [address] * (ABNORMAL) TROPONIN BASELINE, 5TH GEN (05/11/2025 8:46 AM CDT) [facility] TROPONIN T, BASELINE 5TH GEN 23(H) <=15 ng/L 05/11/2025 9:33 AM CDT [facility] Blood Venipuncture / Unknown 05/11/2025 8:46 AM CDT 05/11/2025 8:53 AM CDT [facility] - 05/11/2025 9:33 AM CDT Troponin elevated. us Vivi Valentine MD CHEMISTRY ORDERABLES Final R esult Performing Organization Address City/[facility]/ZIP Co de Phone Number [facility] CLIA# [id number] [place] [address] * TSH REFLEXIVE (05/11/2025 8:46 AM CDT) TSH 1.00 0.27 - 4.20 uIU/mL 05/11/2025 9:33 AM CDT [facility] [employer] [facility] Blood Venipuncture / Unknown 05/11/2025 8:46 AM CDT 05/11/2025 8:53 AM CDT us Vivi Valentine MD CHEMISTRY ORDERABLES Final R esult Performing Organization Address [facility] Co de Phone Number [facility] [employer] [facility] CLIA# [id number] [address] [place] [address] * BRAIN NATRIURETIC PEPTIDE, BNP OR PROBNP (05/11/2025 8:46 AM CDT) PROBNP, N TERMINAL 667 0 - 1,800 pg/mL 05/11/2025 9:42 AM CDT [facility] [employer] [facility] Comment: INTERPRETIVE COMMENT based on diagnosis: Diagnostic [...] 8:46 AM CDT 05/11/2025 8:53 AM CDT us Vivi Valentine MD CHEMISTRY ORDERABLES Final R esult [facility] CLIA# [id number] [place] [address] * (ABNORMAL) COMPREHENSIVE METABOLIC PANEL (05/11/2025 8:46 AM CDT) SODIUM 140 136 - 145 mmol/L 05/11/2025 9:42 AM CDT [facility] POTASSIUM 4.1 3.4 - 5.1 mmol/L 05/11/2025 9:42 AM T [facility] CHLORIDE 98 98 - 107 mmol/L 05/11/2025 9:42 AM T [facility] CO2 33(H) 22 - 29 mmol/L 05/11/2025 9:42 AM T [facility] CALCIUM 9.3 8.6 - 10.4 mg/dL 05/11/2025 9:42 AM T [facility] BUN 20 6 - 20 mg/dL 05/11/2025 9:42 AM T [facility] CREATININE 0.56(L) 0.67 - 1.17 mg/dL 05/11/2025 9:42 AM T [facility] Comment:The GFR result is no t clinically significant on patients <18 or >70 years of age. GLUCOSE 102(H) 74 - 99 mg/dL 05/11/2025 9:42 AM T [facility] TOTAL PROTEIN 6.5 6.3 - 8.7 g/dL 05/11/2025 9:42 AM T [facility] ALBUMIN 3.5 3.5 - 5.2 g/dL 05/11/2025 9:42 AM T [facility] BILIRUBIN TOTAL <0.2 0.0 - 1.1 mg/dL 05/11/2025 9:42 AM T [facility] ALKALINE PHOSPHATASE 128 40 - 150 U/L 05/11/2025 9:42 AM T [facility] AST 36 0 - 41 U/L 05/11/2025 9:42 AM CDT [facility] ALT 40 0 - 41 U/L 05/11/2025 9:42 AM CDT [facility] GFR >60 mL/min/1.7 3 sq meter 05/11/2025 9:42 AM CDT [facility] Comment:eGFR calculated with 2020 CKD-EPI equation. Vegetarian diet, extremely high or low muscle mass, and may affect results. Cystatin C with Glomerular Filtration Rate is a suitable alternative for these patients. ANION GAP 9 8 - 16 mmol/L 05/11/2025 9:42 AM CDT [facility] Blood Venipuncture / Unknown 05/11/2025 8:46 AM CDT 05/11/2025 8:53 AM CDT us Vivi Valentine MD CHEMISTRY ORDERABLES Final R esult [facility] CLIA# [id number] [address] [place] [address] * EKG 12-LEAD (05/11/2025 8:11 AM CDT) 05/11/2025 8:11 AM CDT Narrative INTERFACE SYSTEM - 05/11/2025 12:44 [place] [address] Test Date: 2025-05-11 Pat Name: SIM MAYER Department: 94 Room: [address] [place] [address] Gender: Male 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: STERLING : 1950 Requested By: Order Number: [id number] Reading MD: Kamla Garcia Measurements Intervals [place] Rate: 87 P: 82 MO: 122 QRS: 71 QRSD: 88 T: 76 QT: 358 QTc: 430 Interpretive Statements Sinus rhythm with occasional premature ventricular complexes Right atrial enlargement Borderline ECG No previous ECG available for comparison Electronically Signed On 05-11-2025 12:44:56 CDT by Kamla Garcia Procedure Note Kamla Garcia MD - 05/11/2025 [facility] [place] [address] [place] [id number] Test Date: 2025-05-11 Pat Name: SIM MAYER Department: 94 Room: [address] [place] [address] Gender: Male 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: STERLING : 1950 Requested By: Order Number: [id number] Reading MD: Kamla Garcia Measurements Intervals [place] Rate: 87 P: 82 MO: 122 QRS: 71 QRSD: 88 T: 76 QT: 358 QTc: 430 Interpretive Statements Sinus rhythm with occasional premature ventricular complexes Right atrial enlargement Borderline ECG No previous ECG available for comparison Electronically Signed On 05-11-2025 12:44:56 CDT by Kamla Garcia us Vivi Valentine MD ECG ORDERABLES Final Result Performing Organization Address City/State/[facility] Co de Phone Number INTERFACE SYSTEM [...] Final Result from Last 3 Months Insurance [facility] [id number] [place] [address] RX [employer] RX Member Subscriber Plan / Payer (Ef fective 2022-Present) Name:Sim Mayer Relation to Subscriber:Self Name:Sim Mayer Payer ID:Not on file Group ID:[id number] Type:RX Medicare Part D Address: [facility] [place] RX [employer] PLANS (INTERNAL) [facility] RX [facility] [employer] [place] [employer] Advance Directives For more information, please contact: [phone] * NO CPR (In Event of Cardiopulmonary Arrest) (Latest Code Status on File) Date Activated Date Inactivated Comments 05/11/2025 4:44 PM 05/13/2025 5:18 PM Question Answer Comments Mechanical Ventilation (for respiratory distress) - Invasive (i.e. intubation): No Mechanical Ventilation (for respiratory distress) - Non-Invasive (i.e. BiPAP, CPAP): Yes Care Teams Watershed Coordinator Relationship Specialty Start Date End Date Virgil Beaulieu MD [address] [address] PCP - General Internal Medicine 05/11/25
--- OUTSIDE RECORDS SUMMARY | 2025-08-08 11:42 | XMS_ITS ---
Author Organization [facility] Address [address] 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
--- OUTSIDE RECORDS SUMMARY | 2025-08-08 11:42 | XMS_ITS | Encounter Summary ---
Author Organization [facility] Address [address] [place] [address] Care Team Providers Care Director Franchise Sales Name Role Phone Virgil Beaulieu MD Primary Care Provider [phone] Encounter Details Date Type Department Care Team (Late st Contact Info) Description 05/21/2025 Orders Only [facility] [place] - Primary Care [address] [place] [address] Carmen Artis, HOME PERFORMANCE CONSULTANT-C [address] [facility] [address] [place] [address] Social History Tobacco Use Types Packs/Day Years Used Date Smoking Tobacco: Every Day Cigarettes Smokeless Tobacco: Never Alcohol Use Standard Drinks/Week Comments Yes 1 (1 standard drink = 0.6 oz pur e alcohol) per day [facility] Utilities Answer Date Recorded In the past 12 months has [employer], gas, oil, or water company threatened to shut off services in your home? No 05/19/2025 PHQ-2 Answer Date Recorded PHQ-2 Score 0 11/19/2024 Hunger Vital Sign Answer Date Recorded Within the past 12 months, y ou worried that your food would run out before you got the money to buy more. Never true 05/19/20 25 Within the past 12 months, t he food you bought just didn't last and you didn't have money to get more. Never true 05/19/2025 PRAPARE - Transportation Answer Date Re corded In the past 12 months, has l ack of transportation kept you from medical appointments or from getting medications? No 04/24 In the past 12 months, has l ack of transportation kept you from meetings, work, or from getting things needed for daily living? No 05/19/2025 Housing Stability Vital Sign Answer Oscar e Recorded In the last 12 months, was t here a time when you were not able to pay the mortgage or rent on time? No 05/19/2025 Number of Times Moved in the Last Year Not on fi le 05/19/2025 At any time in the past 12 m [facility], were you homeless or living in a jail (including now)? No 05/19/2025 Sex and Gender Information Value Date Recorded Sex Assigned at Not on file Legal Sex Male 12:56 PM CDT Gender Identity Not on file Sexual Orientation Not on file documented as of this encounter Plan of Treatment Upcoming Encounters Date Type Department Care Team (Late st Contact Info) Description 08/09/2025 3:00 PM STRING CUTTER Office Visit [facility] [place] - Primary Care [address] [place] [address] Carmen Artis, HOME PERFORMANCE CONSULTANT-C [address] [place] [address] 11/08/2025 9:45 AM STRING CUTTER Office Visit [facility] [place] - Primary Care [address] [facility] [address] [place] [address] Virgil Beaulieu MD [address] [place] [address] documented as of this encounter Visit Diagnoses Not on filedocumented in this encounter Additional Health Concerns Health Status Noted Date Alive and well 07/02/2024 Assessment Noted Time PHQ-9 Depression Total Score: 0 11/19/19 25 12:46 PM STRING CUTTER A fall risk assessment has been complete d for the patient 05/19/2025 3:14 PM CDT documented as of this encounter Care Teams Director Franchise Sales Relationship Specialty Start Date End Date Virgil Beaulieu MD [address] [place] [address] PCP - General Internal Medicine 07/31/18 documented as of this encounter
--- OUTSIDE RECORDS SUMMARY | 2025-08-08 11:45 | XMS_ITS | Encounter Summary ---
Author Organization [facility] Address [address] [place] [address] Care Team Providers Care Instrument Installer Name Role Phone Virgil Beaulieu MD Primary Care Provider [phone] Reason for Visit * Reason Comments Med Refill Encounter Details Date Type Department Care Team (Late st Contact Info) Description 11/26/2024 Refill [facility] [place] - Urgent Care [address] [place] [address] Gopi Bernstein FNP [address] [place] [address] COPD exacerbation (HCC) Social History Tobacco Use Types Packs/Day Years Used Date Smoking Tobacco: Every Day Cigarettes Smokeless Tobacco: Never Alcohol Use Standard Drinks/Week Comments Yes 1 (1 standard drink = 0.6 oz pur e alcohol) per day PHQ-2 Answer Date Recorded PHQ-2 Score 0 11/19/2024 Sex and Gender Information Value Date Recorded Sex Assigned at Not on file Legal Sex Male 12:56 PM CDT Gender Identity Not on file Sexual Orientation Not on file documented as of this encounter Plan of Treatment Upcoming Encounters Date Type Department Care Team (Late st Contact Info) Description 08/09/2025 3:00 PM PROMOTIONS EXECUTIVE Office Visit [facility] [place] - Primary Care [address] [place] [address] Carmen Artis, ADVERTISING ACCOUNT MANAGER-C [address] [place] [address] 11/08/2025 9:45 AM PROMOTIONS EXECUTIVE Office Visit [facility] [place] - Primary Care [address] [place] [address] Virgil Beaulieu MD [address] [place] [address] documented as of this encounter Visit Diagnoses Diagnosis COPD exacerbation (HCC) Obstructive chronic bronchitis with exacerbation documented in this encounter Additional Health Concerns Health Status Noted Date Alive and well 07/02/2024 Assessment Noted Time PHQ-9 Depression Total Score: 0 11/19/19 25 12:46 PM PROMOTIONS EXECUTIVE A fall risk assessment has been complete d for the patient 11/19/2024 12:47 PM PROMOTIONS EXECUTIVE documented as of this encounter Care Teams Instrument Installer Relationship Specialty Start Date End Date Virgil Beaulieu MD [address] [place] [address] PCP - General Internal Medicine 07/31/18 documented as of this encounter
--- OUTSIDE RECORDS SUMMARY | 2025-08-08 11:45 | XMS_ITS | Encounter Summary ---
Author Organization [facility] Address [address] [place] [address] Care Team Providers Care Cell Operation Supervisor Name Role Phone Virgil Beaulieu MD Primary Care Provider [phone] Encounter Details Date Type Department Care Team (Late st Contact Info) Description 07/09/2024 Orders Only [facility] [place] - Primary Care [address] [place] [address] Alysha Perkins Mixed hyperlipidemia (Primary Dx) Social History Tobacco Use Types Packs/Day Years Used Date Smoking Tobacco: Every Day Cigarettes Smokeless Tobacco: Never Alcohol Use Standard Drinks/Week Comments Yes 1 (1 standard drink = 0.6 oz pur e alcohol) per day PHQ-2 Answer Date Recorded PHQ-2 Score 0 01/07/2024 Sex and Gender Information Value Date Recorded Sex Assigned at Not on file Legal Sex Male 12:56 PM CDT Gender Identity Not on file Sexual Orientation Not on file documented as of this encounter Plan of Treatment Upcoming Encounters Date Type Department Care Team (Late st Contact Info) Description 08/09/2025 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 Office Visit [facility] [place] - Primary Care [address] [place] [address] Carmen Artis, COURTESY BOOTH CASHIER-C [address] [place] [address] 11/08/2025 9:45 AM 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 Office Visit [facility] [place] - Primary Care [address] [place] [address] Virgil Beaulieu MD [address] [place] [address] documented as of this encounter Visit Diagnoses Diagnosis Mixed hyperlipidemia- Primary documented in this encounter Additional Health Concerns Health Status Noted Date Alive and well 07/02/2024 Assessment Noted Time PHQ-9 Depression Total Score: 0 09/24/19 20 2:47 PM 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
--- OUTSIDE RECORDS SUMMARY | 2025-08-08 11:47 | XMS_ITS ---
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 Last neulasta in march. Now downtrending Assessment & Plan (05/29/2025 7:14 AM CDT): Likely in setting of prednisone. Last neulasta in end march. Now downtrending Assessment & Plan (05/28/2025 11:53 AM CDT): Likely in setting of prednisone. Last neulasta in end march. Now downtrending Assessment & Plan (05/27/2025 1:09 PM CDT): Likely in setting of prednisone. Last neulasta in end march. Now downtrending Assessment & Plan (05/26/2025 2:09 PM CDT): Neutrophilia Initially thought to be a lab error but given uprise 16>34>43, most prominently neutrophils,absolute neutrophils 31.21. Patient has been receiving prednisone outpatient, likely de margination,last taken 05/25. No sign of worsening infection. HDS. Plan: Continue to monitor with daily cbc, if continues to uptrend will order peripheral smear Hyperkalemia 05/25/2025 Assessment & Plan (05/30/2025 11:30 AM CDT): Improving -Daily lasix -Hyperkalemia protocol on 05/28 -Per family they will call patients PCP to scheduled a blood draw with K check on the week of 05/31 and referral will be placed by this MD as well. Assessment & Plan (05/29/2025 11:34 AM CDT): Improving -Daily lasix -Hyperkalemia protocol on 05/28 Assessment & Plan (05/28/2025 11:53 AM CDT): -Daily lasix -Hyperkalemia protocol on 05/28 Assessment & Plan (05/27/2025 1:09 PM CDT): Plan: Daily lasix Monitor K Assessment & Plan (05/26/2025 10:52 AM CDT): Patient noted to be hyperkalemic to 5.6 earlier today.Received lokelma x1 yesterday. K improved to 5. Will repeat labs tomorrow Plan: Daily lasix Monitor K Assessment & Plan (05/25/2025 8:53 PM CDT): Patient noted to be hyperkalemic to 5.6 earlier today. Will give lokelma x1 - Lokelma x1 - Daily lasix - Monitor K Depression 05/25/2025 Small cell lung cancer in adult 05/25/2025 Assessment & Plan (05/30/2025 7:21 AM CDT): Patient with recently diagnosed SCLC s/p C1 of carboplatin/etoposide c/b pancytopenia requiring Neulasta and pRBC transfusions who presents for next round of chemotherapy. Most recent scan showed improvement in disease burden after first round of chemo though patient's worsening headaches raise c/f metastatic disease . Brain MRI 05/26-with 2 new foci concerning for progressing/new mets. Plan -Consult rad onc- outpatient evaluation -[place] q4 h prn -Oncology started carbo/etopo chemotherapy as inpatient. Anticipate discharge by saturday Assessment & Plan (05/29/2025 7:14 AM CDT): Patient with recently diagnosed SCLC s/p C1 of carboplatin/etoposide c/b pancytopenia requiring Neulasta and pRBC transfusions who presents for next round of chemotherapy. Most recent scan showed improvement in disease burden after first round of chemo though patient's worsening headaches raise c/f metastatic disease . Brain MRI 05/26-with 2 new foci concerning for progressing/new mets. Plan -Consult rad onc- outpatient evaluation -[place] q4 h prn -Oncology started carbo/etopo chemotherapy as inpatient. Anticipate discharge by saturday Assessment & Plan (05/28/2025 11:53 AM CDT): Patient with recently diagnosed SCLC s/p C1 of carboplatin/etoposide c/b pancytopenia requiring Neulasta and pRBC transfusions who presents for next round of chemotherapy. Most recent scan showed improvement in disease burden after first round of chemo though patient's worsening headaches raise c/f metastatic disease . Brain MRI 05/26-with 2 new foci concerning for progressing/new mets. Plan -Consult rad onc- outpatient evaluation -[place] q4 h prn -Oncology started carbo/etopo chemotherapy as inpatient. Anticipate discharge by saturday Assessment & Plan (05/27/2025 1:09 PM CDT): Patient with recently diagnosed SCLC s/p C1 of carboplatin/etoposide c/b pancytopenia requiring Neulasta and pRBC transfusions who presents for next round of chemotherapy. Most recent scan showed improvement in disease burden after first round of chemo though patient's worsening headaches raise c/f metastatic disease . Brain MRI 9-with 2 new foci concerning for progressing/new mets. Plan Consult rad onc [place] q4 h prn Oncology to start carbo/etopo chemotherapy. Anticipate discharge by saturday Assessment & Plan (05/26/2025 10:52 AM CDT): Patient with recently diagnosed SCLC s/p C1 of carboplatin/etoposide c/b pancytopenia requiring Neulasta and pRBC transfusions who presents for next round of chemotherapy. Most recent scan showed improvement in disease burden after first round of chemo though patient's worsening headaches raise c/f metastatic disease . Plan Pending brain MRI. Will need one dose of IV diazepam before MRI Pending medical oncology discussion with patient after MRI results- whether or not patient will want radiation in case of brain mets Assessment & Plan (05/25/2025 8:53 PM CDT): Patient with recently diagnosed SCLC s/p C1 of carboplatin/etoposide c/b pancytopenia requiring Neulasta and pRBC transfusions who presents for next round of chemotherapy. Most recent scan showed improvement in disease burden after first round of chemo though patient's worsening headaches raise c/f metastatic disease as described elsewhere. Patient otherwise stable. Anticipate next round of chemotherapy pending inpatient medical oncology evaluation. - Med onc consult - bMRI Chronic hypoxic respiratory failure 05/25/2025 Assessment & Plan (05/30/2025 7:21 AM CDT): Patient with history of COPD on 2L NC at baseline. Recently treated for COPD exacerbation after presenting with one episode of hemoptysis that has not recurred. Family notes intermittent compliance with inhalers due to patient preference. Not in exacerbation at this time. Will continue with duonebs and scheduled inhalers while admitted Plan: -Continue Trelegy Ellipta, duonebs prn -Guaifenesin scheduled, tessalon perles prn -Humidified NC Assessment & Plan (05/29/2025 7:14 AM CDT): Patient with history of COPD on 2L NC at baseline. Recently treated for COPD exacerbation after presenting with one episode of hemoptysis that has not recurred. Family notes intermittent compliance with inhalers due to patient preference. Not in exacerbation at this time. Will continue with duonebs and scheduled inhalers while admitted Plan: -Continue Trelegy Ellipta, duonebs prn -Guaifenesin scheduled, tessalon perles prn -Humidified NC Assessment & Plan (05/28/2025 11:53 AM CDT): Patient with history of COPD on 2L NC at baseline. Recently treated for COPD exacerbation after presenting with one episode of hemoptysis that has not recurred. Family notes intermittent compliance with inhalers due to patient preference. Not in exacerbation at this time. Will continue with duonebs and scheduled inhalers while admitted Plan: -Continue Trelegy Ellipta, duonebs prn -Guaifenesin scheduled, tessalon perles prn -Humidified NC Assessment & Plan (05/27/2025 8:27 AM CDT): Patient with history of COPD on 2L NC at baseline. Recently treated for COPD exacerbation after presenting with one episode of hemoptysis that has not recurred. Family notes intermittent compliance with inhalers due to patient preference. Not in exacerbation at this time. Will continue with duonebs and scheduled inhalers while admitted Plan: Continue Trelegy Ellipta, duonebs prn Guaifenesin scheduled, tessalon perles prn Humidified NC Assessment & Plan (05/26/2025 10:52 AM CDT): Patient with history of COPD on 2L NC at baseline. Recently treated for COPD exacerbation after presenting with one episode of hemoptysis that has not recurred. Family notes intermittent compliance with inhalers due to patient preference. Not in exacerbation at this time. Will continue with duonebs and scheduled inhalers while admitted Plan: Continue Trelegy Ellipta, duonebs prn Guaifenesin scheduled, tessalon perles prn Humidified NC Assessment & Plan (05/25/2025 8:55 PM CDT): Patient with history of COPD on 2L NC at baseline. Recently treated for COPD exacerbation after presenting with one episode of hemoptysis that has not recurred. Family notes intermittent compliance with inhalers due to patient preference. Has continued cough but has not appreciably worsened recently. Not in exacerbation at this time. Will continue with duonebs and scheduled inhalers while admitted - Continue Trelegy Ellipta, duonebs prn - Guaifenesin scheduled, tessalon perles prn - Humidified NC Headache 05/25/2025 Assessment & Plan (05/30/2025 7:21 AM CDT): Patient with recently diagnosed SCLC s/p C1 of carboplatin/etoposide c/b pancytopenia requiring Neulasta and pRBC transfusions who presents for next round of chemotherapy. Most recent scan showed improvement in disease burden after first round of chemo though patient's worsening headaches raise c/f metastatic disease . Brain MRI 9/3-with 2 new foci concerning for progressing/new mets. Plan -Consult rad onc- outpatient evaluation -[place] q4 h prn -Oncology started carbo/etopo chemotherapy as inpatient. Anticipate discharge by saturday Assessment & Plan (05/29/2025 7:14 AM CDT): Patient with recently diagnosed SCLC s/p C1 of carboplatin/etoposide c/b pancytopenia requiring Neulasta and pRBC transfusions who presents for next round of chemotherapy. Most recent scan showed improvement in disease burden after first round of chemo though patient's worsening headaches raise c/f metastatic disease . Brain MRI 93-with 2 new foci concerning for progressing/new mets. Plan -Consult rad onc- outpatient evaluation -[place] q4 h prn -Oncology started carbo/etopo chemotherapy as inpatient. Anticipate discharge by saturday Assessment & Plan (05/28/2025 11:53 AM CDT): Patient with recently diagnosed SCLC s/p C1 of carboplatin/etoposide c/b pancytopenia requiring Neulasta and pRBC transfusions who presents for next round of chemotherapy. Most recent scan showed improvement in disease burden after first round of chemo though patient's worsening headaches raise c/f metastatic disease . Brain MRI 9/3-with 2 new foci concerning for progressing/new mets. Plan -Consult rad onc- outpatient evaluation -[place] q4 h prn -Oncology started carbo/etopo chemotherapy as inpatient. Anticipate discharge by saturday Assessment & Plan (05/27/2025 1:09 PM CDT): Patient with recently diagnosed SCLC s/p C1 of carboplatin/etoposide c/b pancytopenia requiring Neulasta and pRBC transfusions who presents for next round of chemotherapy. Most recent scan showed improvement in disease burden after first round of chemo though patient's worsening headaches raise c/f metastatic disease . Brain MRI 05/26-with 2 new foci concerning for progressing/new mets. Plan Consult rad onc [place] q4 h prn Oncology to start carbo/etopo chemotherapy. Anticipate discharge by saturday Assessment & Plan (05/26/2025 10:52 AM CDT): Patient notes headache over the last 2 days. Of note, headache worsened after he slept raising concern for increased ICP possibly ISO metastatic lesions. He had a bMRI on 04/09 that showed 2 small foci of enhancement c/f subacute infarct vs small metastatic lesion. Recommended repeat MRI in 1 month. Plan: bMRI [place] q[facility] h prn Assessment & Plan (05/25/2025 8:53 PM CDT): Patient notes headache over the last 2 days. Of note, headache worsened after he slept raising concern for increased ICP possibly ISO metastatic lesions. He had a bMRI on 04/09 that showed 2 small foci of enhancement c/f subacute infarct vs small metastatic lesion. Recommended repeat MRI in 1 month. - bMRI - Tylenol, oxycodone prn for headache Pancytopenia due to chemotherapy 05/14/2025 Reactive thrombocytosis 04/25/2025 Assessment & Plan (04/28/2025 7:44 AM CDT): -8/4 counts 398. Resolved. Assessment & Plan (04/27/2025 1:03 PM CDT): -8/4 counts 398. Resolved. Assessment & Plan (04/26/2025 10:10 AM CDT): -8/4 counts 398. Resolved. Assessment & Plan (04/25/2025 9:23 AM CDT): -04/24/25 Plts 450k Anemia due to chemotherapy 04/25/2025 Assessment & Plan (04/28/2025 7:44 AM CDT): -Prior to chemo hgb 10-11 -Hgb 11/28/24 was 6.6 s/p 1 PRBC , transfused on 8/5 1 unit for optimization. Assessment & Plan (04/27/2025 1:03 PM CDT): -Prior to chemo hgb 10-11 -Hgb 11/28/24 was 6.6 s/p 1 PRBC , transfused on 8/5 1 unit for optimization. Assessment & Plan (04/26/2025 10:10 AM CDT): -Prior to chemo hgb 10-11 -Hgb 11/28/24 was 6.6 s/p 1 PRBC -Monitor . Hb stable level 7.4 on last check. Assessment & Plan (04/25/2025 9:23 AM CDT): -Prior to chemo hgb 10-11 -Hgb 11/28/24 was 6.6 s/p 1 PRBC -Monitor Macrocytic anemia 04/25/2025 Assessment & Plan (04/28/2025 7:44 AM CDT): -Prior to chemo hgb 10-11 -Hgb 11/28/24 was 6.6 s/p 1 PRBC , transfused on 8/5 1 unit for optimization. Assessment & Plan (04/27/2025 1:03 PM CDT): -Prior to chemo hgb 10-11 -Hgb 11/28/24 was 6.6 s/p 1 PRBC , transfused on 8/5 1 unit for optimization. Assessment & Plan (04/26/2025 10:10 AM CDT): -Prior to chemo hgb 10-11 -Hgb 11/28/24 was 6.6 s/p 1 PRBC -Monitor . Hb stable level 7.4 on last check. Assessment & Plan (04/25/2025 9:23 AM CDT): -Prior to chemo hgb 10-11 -Hgb 11/28/24 was 6.6 s/p 1 PRBC -Monitor Metabolic alkalosis 04/18/2025 Assessment & Plan (04/28/2025 7:44 AM CDT): Differentials - Metabolic due to diuresis, Chronic resp acidosis compensation (PCO2 58) Patient continues to have b/l lower extremity edema, - Continue diuresis as above. Assessment & Plan (04/27/2025 1:03 PM CDT): Differentials - Metabolic due to diuresis, Chronic resp acidosis compensation (PCO2 58) Patient continues to have b/l lower extremity edema, - Continue diuresis as above. Assessment & Plan (04/26/2025 7:13 AM CDT): Differentials - Metabolic due to diuresis, Chronic resp acidosis compensation (PCO2 58) Patient continues to have b/l lower extremity edema, - Continue diuresis with Lasix for now. Assessment & Plan (04/25/2025 9:23 AM CDT): Differentials - Metabolic due to diuresis, Chronic resp acidosis compensation (PCO2 58) Patient continues to have b/l lower extremity edema, - Continue diuresis with Lasix for now. Assessment & Plan (04/24/2025 10:17 AM CDT): Started recent on Lasix 20 mg daily outpatient for management of peripheral edema. TTE on 04/13 with normal systolic/diastolic function. Unclear etiology but managing with IV lasix with appreciable improvement in symptoms. Decreased lasix to daily with improvement in HCO3 and without significant worsening in [place] - Continue IV lasix 40 mg daily. Switch to oral Lasix from 04/25 Assessment & Plan (04/23/2025 7:17 AM CDT): Started recent on Lasix 20 mg daily outpatient for management of peripheral edema. TTE on 04/13 with normal systolic/diastolic function. Unclear etiology but managing with IV lasix with appreciable improvement in symptoms. Decreased lasix to daily with improvement in HCO3 and without significant worsening in [place] - Continue IV lasix 40 mg daily Assessment & Plan (04/22/2025 7:23 AM CDT): Started recent on Lasix 20 mg daily outpatient for management of peripheral edema. TTE on 04/13 with normal systolic/diastolic function. Unclear etiology but managing with IV lasix with appreciable improvement in symptoms. Decreased lasix to daily with improvement in HCO3 and without significant worsening in [place] - Continue IV lasix 40 mg daily Assessment & Plan (04/21/2025 7:28 AM CDT): Started recent on Lasix 20 mg daily outpatient for management of peripheral edema. TTE on 04/13 with normal systolic/diastolic function. Unclear etiology but managing with IV lasix with appreciable improvement in symptoms. Decreased lasix to daily with improvement in HCO3 and without significant worsening in [place] - Continue IV lasix 40 mg daily Assessment & Plan (04/20/2025 7:21 AM CDT): Started recent on Lasix 20 mg daily outpatient for management of peripheral edema. TTE on 04/13 with normal systolic/diastolic function. Unclear etiology but managing with IV lasix with appreciable improvement in symptoms. Decreased lasix to daily with improvement in HCO3 and without significant worsening in [place] - Continue IV lasix 40 mg daily Assessment & Plan (04/19/2025 10:38 AM CDT): Started recent on Lasix 20 mg daily outpatient for management of peripheral edema. TTE on 04/13 with normal systolic/diastolic function. Unclear etiology but managing with IV lasix with appreciable improvement in symptoms. Decreased lasix to daily with improvement in HCO3 and without significant worsening in [place] - Continue IV lasix 40 mg daily Assessment & Plan (04/18/2025 10:37 AM CDT): Started recent on Lasix 20 mg daily outpatient for management of peripheral edema. TTE on 04/13 with normal systolic/diastolic function. Unclear etiology but managing with IV lasix with appreciable improvement in symptoms. Patient has worsening alkalosis most likely from contraction. 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 Has not undergone biopsy as of yet. Progressively worsening shortness of breath, oxygen requirement, difficulty with ADLs at home, weight loss. CT chest abdomen and pelvis with contrast showed mass in the left lobe with left hilar and mediastinal LAD, necrotic liver lesion, brain MRI c/f mets but significant motion artifact. Brain MRI w two foci suggestive of subacute infarcts, but cannot exclude mets. 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 Received chemotherapy 04/19 with carboplatin and etoposide. - S/p Neulasta for post chemo induced neutropenia ppx, neutropenic on discharge. Discussed with oncology. This is to be expected given recent chemo. At this point not a barrier to discharge. 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 Has not undergone biopsy as of yet. Progressively worsening shortness of breath, oxygen requirement, difficulty with ADLs at home, weight loss. CT chest abdomen and pelvis with contrast showed mass in the left lobe with left hilar and mediastinal LAD, necrotic liver lesion, brain MRI c/f mets but significant motion artifact. Brain MRI w two foci suggestive of subacute infarcts, but cannot exclude mets. 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 Received chemotherapy 04/19 with carboplatin and etoposide. - S/p Neulast for chemo induced neutropenia ppx - Monitoring counts and transfusing as needed. 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 Has not undergone biopsy as of yet. Progressively worsening shortness of breath, oxygen requirement, difficulty with ADLs at home, weight loss. CT chest abdomen and pelvis with contrast showed mass in the left lobe with left hilar and mediastinal LAD, necrotic liver lesion, brain MRI c/f mets but significant motion artifact. Brain MRI w two foci suggestive of subacute infarcts, but cannot exclude mets. 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 - Oncology consulted - Received chemotherapy 04/19 with carboplatin and etoposide. - S/p Neulast for chemo induced neutropenia ppx - Monitoring counts and transfusing as needed. 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 Has not undergone biopsy as of yet. Progressively worsening shortness of breath, oxygen requirement, difficulty with ADLs at home, weight loss. CT chest abdomen and pelvis with contrast showed mass in the left lobe with left hilar and mediastinal LAD, necrotic liver lesion, brain MRI c/f mets but significant motion artifact. Brain MRI w two foci suggestive of subacute infarcts, but cannot exclude mets. 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 - Oncology consulted - Received chemotherapy 04/19 with carboplatin and etoposide. - S/p Neulast for chemo induced neutropenia ppx - Monitoring counts and transfusing as needed. 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 Has not undergone biopsy as of yet. Progressively worsening shortness of breath, oxygen requirement, difficulty with ADLs at home, weight loss. CT chest abdomen and pelvis with contrast showed mass in the left lobe with left hilar and mediastinal LAD, necrotic liver lesion, brain MRI c/f mets but significant motion artifact. Brain MRI w two foci suggestive of subacute infarcts, but cannot exclude mets. 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 - Oncology consulted - Received chemotherapy 04/19 with carboplatin and etoposide. Monitoring counts and transfusing as needed. 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 Has not undergone biopsy as of yet. Progressively worsening shortness of breath, oxygen requirement, difficulty with ADLs at home, weight loss. CT chest abdomen and pelvis with contrast showed mass in the left lobe with left hilar and mediastinal LAD, necrotic liver lesion, brain MRI c/f mets but significant motion artifact. Brain MRI w two foci suggestive of subacute infarcts, but cannot exclude mets. 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 Has not undergone biopsy as of yet. Progressively worsening shortness of breath, oxygen requirement, difficulty with ADLs at home, weight loss. CT chest abdomen and pelvis with contrast showed mass in the left lobe with left hilar and mediastinal LAD, necrotic liver lesion, brain MRI c/f mets but significant motion artifact. Brain MRI w two foci suggestive of subacute infarcts, but cannot exclude mets. 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 Has not undergone biopsy as of yet. Progressively worsening shortness of breath, oxygen requirement, difficulty with ADLs at home, weight loss. CT chest abdomen and pelvis with contrast showed mass in the left lobe with left hilar and mediastinal LAD, necrotic liver lesion, brain MRI c/f mets but significant motion artifact. Brain MRI w two foci suggestive of subacute infarcts, but cannot exclude mets. 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 Has not undergone biopsy as of yet. Progressively worsening shortness of breath, oxygen requirement, difficulty with ADLs at home, weight loss. CT chest abdomen and pelvis with contrast showed mass in the left lobe with left hilar and mediastinal LAD, necrotic liver lesion, brain MRI c/f mets but significant motion artifact. Brain MRI w two foci suggestive of subacute infarcts, but cannot exclude mets. 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 Has not undergone biopsy as of yet. Progressively worsening shortness of breath, oxygen requirement, difficulty with ADLs at home, weight loss. CT chest abdomen and pelvis with contrast showed mass in the left lobe with left hilar and mediastinal LAD, necrotic liver lesion, brain MRI c/f mets but significant motion artifact. Brain MRI w two foci suggestive of subacute infarcts, but cannot exclude mets. 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 Has not undergone biopsy as of yet. Progressively worsening shortness of breath, oxygen requirement, difficulty with ADLs at home, weight loss. CT chest abdomen and pelvis with contrast showed mass in the left lobe with left hilar and mediastinal LAD, necrotic liver lesion, brain MRI c/f mets but significant motion artifact. Brain MRI w two foci suggestive of subacute infarcts, but cannot exclude mets. 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 Has not undergone biopsy as of yet. Progressively worsening shortness of breath, oxygen requirement, difficulty with ADLs at home, weight loss. CT chest abdomen and pelvis with contrast showed mass in the left lobe with left hilar and mediastinal LAD, necrotic liver lesion, brain MRI c/f mets but significant motion artifact. Brain MRI w two foci suggestive of subacute infarcts, but cannot exclude mets. 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 Has not undergone biopsy as of yet. Progressively worsening shortness of breath, oxygen requirement, difficulty with ADLs at home, weight loss. CT chest abdomen and pelvis with contrast showed mass in the left lobe with left hilar and mediastinal LAD, necrotic liver lesion, brain MRI c/f mets but significant motion artifact. Brain MRI w two foci suggestive of subacute infarcts, but cannot exclude mets. 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 - Oncology consulted - Anticipate starting chemotherapy once antibiotic course is completed - Continue supplemental O2, wean as able - DuoNebs, LAMA/LABA scheduled, albuterol prn - Suctioning q4, aerobica Severe protein-calorie malnutrition 04/14/2025 Assessment & Plan (05/30/2025 7:21 AM CDT): -RD recs to continue supplemental vitamins. Family requesting refills of vitamins on discharge Assessment & Plan (05/29/2025 7:14 AM CDT): -RD recs to continue supplemental vitamins. Family requesting refills of vitamins on discharge Assessment & Plan (05/28/2025 11:53 AM CDT): -RD recs to continue supplemental vitamins. Family requesting refills of vitamins on discharge Assessment & Plan (05/27/2025 1:09 PM CDT): RD recs to continue supplemental vitamins. Family requesting refills of vitamins on discharge Assessment & Plan (05/26/2025 10:52 AM CDT): RD consult Continue supplemental vitamins. Family requesting refills of vitamins on discharge Assessment & Plan (05/25/2025 8:53 PM CDT): - RD consult - Continue supplemental vitamins. Family requesting refills of vitamins on discharge Assessment & Plan (04/28/2025 7:44 AM CDT): - RD consulted Assessment & Plan (04/27/2025 1:03 PM CDT): - RD consulted Assessment & Plan (04/26/2025 7:13 AM CDT): - RD consulted Assessment & Plan (04/25/2025 7:31 AM CDT): - RD consulted Assessment & Plan (04/24/2025 7:32 AM CDT): - RD consulted Assessment & Plan (04/23/2025 7:17 AM CDT): - RD consulted Assessment & Plan (04/22/2025 7:23 AM CDT): - RD consulted Assessment & Plan (04/21/2025 7:28 AM CDT): - RD consulted Assessment & Plan (04/20/2025 7:21 AM CDT): - RD consulted Assessment & Plan (04/19/2025 10:38 AM CDT): - RD consulted Aspiration pneumonia of both lungs 04/13/2025 Assessment & Plan (05/30/2025 7:21 AM CDT): Has had multiple episodes of aspiration pneumonia over the last month and currently on antibiotics. Evaluated previously by [facility] who noted abnormal swallowing during last admission. Family noted possible repeat aspiration event last night. Will continue previously prescribed abx to complete 1 week course. [facility] performed MBS which patient passed and is on regular diet. Plan: -Completed course of clindamycin 300 mg TID and doxycyline 100 BID Assessment & Plan (05/29/2025 7:14 AM CDT): Has had multiple episodes of aspiration pneumonia over the last month and currently on antibiotics. Evaluated previously by [facility] who noted abnormal swallowing during last admission. Family noted possible repeat aspiration event last night. Will continue previously prescribed abx to complete 1 week course. [facility] performed MBS which patient passed and is on regular diet. Plan: -Completed course of clindamycin 300 mg TID and doxycyline 100 BID Assessment & Plan (05/28/2025 11:53 AM CDT): Has had multiple episodes of aspiration pneumonia over the last month and currently on antibiotics. Evaluated previously by [facility] who noted abnormal swallowing during last admission. Family noted possible repeat aspiration event last night. Will continue previously prescribed abx to complete 1 week course. [facility] performed MBS which patient passed and is on regular diet. Plan: -Completed course of clindamycin 300 mg TID and doxycyline 100 BID Assessment & Plan (05/27/2025 1:09 PM CDT): Has had multiple episodes of aspiration pneumonia over the last month and currently on antibiotics. Evaluated previously by [facility]OT[facility] who noted abnormal swallowing during last admission. Family noted possible repeat aspiration event last night. Will continue previously prescribed abx to complete 1 week course. [facility] performed MBS which patient passed and is on regular diet. Plan: Completed course of clindamycin 300 mg TID and doxycyline 100 BID Assessment & Plan (05/26/2025 10:52 AM CDT): Has had multiple episodes of aspiration pneumonia over the last month and currently on antibiotics. Evaluated previously by [facility] who noted abnormal swallowing during last admission. Family noted possible repeat aspiration event last night. Will continue previously prescribed abx to complete 1 week course and consult [facility] Plan: [facility] Continue clindamycin 300 mg TID, doxycyline 100 BID x1 day Assessment & Plan (05/25/2025 8:53 PM CDT): Has had multiple episodes of aspiration pneumonia over the last month and currently on antibiotics. Evaluated previously by [facility] who noted abnormal swallowing during last admission. Family noted possible repeat aspiration event last night. Will continue previously prescribed abx to complete 1 week course and consult [facility] - [facility] - Continue clindamycin 300 mg TID, doxycyline 100 BID x1 day Assessment & Plan (04/28/2025 7:44 AM CDT): Seen on CT A/P on 04/12 with worsening consolidations compared to previous CT. Started on abx for empiric treatment. - S/p Ceftriaxone (04/12 - 04/17), azithromycin (04/12 - 04/14) - [facility] recd post modified barium swallow on 04/21 - Reg diet, pills crushed in puree Assessment & Plan (04/27/2025 1:03 PM CDT): Seen on CT A/P on 04/12 with worsening consolidations compared to previous CT. Started on abx for empiric treatment. - S/p Ceftriaxone (04/12 - 04/17), azithromycin (04/12 - 04/14) - [facility] recd post modified barium swallow on 04/21 - Reg diet, pills crushed in puree Assessment & Plan (04/26/2025 7:13 AM CDT): Seen on CT A/P on 04/12 with worsening consolidations compared to previous CT. Started on abx for empiric treatment. - S/p Ceftriaxone (04/12 - 04/17), azithromycin (04/12 - 04/14) - [facility] recd post modified barium swallow on 04/21 - Reg diet, pills crushed in puree Assessment & Plan (04/25/2025 9:23 AM CDT): Seen on CT A/P on 04/12 with worsening consolidations compared to previous CT. Started on abx for empiric treatment. - S/p Ceftriaxone (04/12 - 04/17), azithromycin (04/12 - 04/14) - [facility] recd post modified barium swallow on 04/21 - Reg diet, pills crushed in puree Assessment & Plan (04/24/2025 7:32 AM CDT): Seen on CT A/P on 04/12 with worsening consolidations compared to previous CT. Started on abx for empiric treatment. - S/p Ceftriaxone (04/12 - 04/17), azithromycin (04/12 - 04/14) - Speech and Swallow evaluating patient. Has modified barium swallow on 04/21 and recommending should intake whole pills and give it crushed Assessment & Plan (04/23/2025 7:17 AM CDT): Seen on CT A/P on 04/12 with worsening consolidations compared to previous CT. Started on abx for empiric treatment. - S/p Ceftriaxone (04/12 - 04/17), azithromycin (04/12 - 04/14) - Speech and Swallow evaluating patient. Has modified barium swallow on 04/21 and recommending should intake whole pills and give it crushed Assessment & Plan (04/22/2025 7:23 AM CDT): Seen on CT A/P on 04/12 with worsening consolidations compared to previous CT. Started on abx for empiric treatment. - S/p Ceftriaxone (04/12 - 04/17), azithromycin (04/12 - 04/14) - Speech and Swallow evaluating patient. Has modified barium swallow on 04/21 and recommending should intake whole pills and give it crushed Assessment & Plan (04/21/2025 3:22 PM CDT): Seen on CT A/P on 04/12 with worsening consolidations compared to previous CT. Started on abx for empiric treatment. - S/p Ceftriaxone (04/12 - 04/17), azithromycin (04/12 - 04/14) - Speech and Swallow evaluating patient. Has modified barium swallow on 04/21 and recommending should intake whole pills and give it crushed Assessment & Plan (04/20/2025 2:28 PM CDT): Seen on CT A/P on 04/12 with worsening consolidations compared to previous CT. Started on abx for empiric treatment. - S/p Ceftriaxone (04/12 - 04/17), azithromycin (04/12 - 04/14) - Speech and Swallow evaluating patient. Has modified barium swallow on 04/21 Assessment & Plan (04/19/2025 10:38 AM CDT): Seen on CT A/P on 04/12 with worsening consolidations compared to previous CT. Started on abx for empiric treatment. - S/p Ceftriaxone (04/12 - 04/17), azithromycin (04/12 - 04/14) Assessment & Plan (04/18/2025 10:37 AM CDT): Seen on CT A/P on 04/12 with worsening consolidations compared to previous CT. Started on abx for empiric treatment. - S/p Ceftriaxone (04/12 - 04/17), azithromycin (04/12 - 04/14) Assessment & Plan (04/17/2025 10:17 AM CDT): Seen on CT A/P on 04/12 with worsening consolidations compared to previous CT. Started on abx for empiric treatment. - S/p Ceftriaxone (04/12 - 04/17), azithromycin (04/12 - 04/14) Assessment & Plan (04/16/2025 9:52 AM CDT): Seen on CT A/P on 04/12 with worsening consolidations compared to previous CT. Started on abx for empiric treatment - Ceftriaxone (04/12 - 04/17), azithromycin (04/12 - 04/14) Assessment & Plan (04/15/2025 11:39 AM CDT): Seen on CT A/P on 04/12 with worsening consolidations compared to previous CT. Started on abx for empiric treatment - Ceftriaxone (04/12 - 04/16), azithromycin (04/12 - 04/14) Assessment & Plan (04/14/2025 10:29 AM CDT): Seen on CT A/P on 04/12 with worsening consolidations compared to previous CT. Started on abx for empiric treatment - Ceftriaxone (04/12 - 04/16), azithromycin (04/12 - 04/14) Assessment & Plan (04/13/2025 2:27 PM CDT): Seen on CT A/P on 04/12 with worsening consolidations compared to previous CT. Started on abx for empiric treatment - Ceftriaxone (04/12 - 04/16), azithromycin (04/12 - 04/14) Prophylaxis for chemotherapy-induced neutropenia 04/12/2025 Assessment & Plan (04/28/2025 7:44 AM CDT): S/p neulasta Assessment & Plan (04/27/2025 1:03 PM CDT): -Leukocytosis -WBC 32k > 21.47k 04/26/25 Assessment & Plan (04/26/2025 10:10 AM CDT): -Leukocytosis -WBC 32k > 21.47k 04/26/25 Assessment & Plan (04/25/2025 9:23 AM CDT): -Leukocytosis -WBC 32k > 25k 04/24/25 Primary cancer of left upper lobe of lung 2024 Shortness of breath 04/07/2025 Assessment & Plan (04/28/2025 7:44 AM CDT): Directed to the ED for admission from oncology clinic for expedited workup and management of 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 Has not undergone biopsy as of yet. Progressively worsening shortness of breath, oxygen requirement, difficulty with ADLs at home, weight loss. CT chest abdomen and pelvis with contrast showed mass in the left lobe with left hilar and mediastinal LAD, necrotic liver lesion, brain MRI c/f mets but significant motion artifact. Brain MRI w two foci suggestive of subacute infarcts, but cannot exclude mets. 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 Received chemotherapy 04/19 with carboplatin and etoposide. - S/p Neulasta for post chemo induced neutropenia ppx, neutropenic on discharge. Discussed with oncology. This is to be expected given recent chemo. At this point not a barrier to discharge. 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 Has not undergone biopsy as of yet. Progressively worsening shortness of breath, oxygen requirement, difficulty with ADLs at home, weight loss. CT chest abdomen and pelvis with contrast showed mass in the left lobe with left hilar and mediastinal LAD, necrotic liver lesion, brain MRI c/f mets but significant motion artifact. Brain MRI w two foci suggestive of subacute infarcts, but cannot exclude mets. 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 Received chemotherapy 04/19 with carboplatin and etoposide. - S/p Neulast for chemo induced neutropenia ppx - Monitoring counts and transfusing as needed. 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 Has not undergone biopsy as of yet. Progressively worsening shortness of breath, oxygen requirement, difficulty with ADLs at home, weight loss. CT chest abdomen and pelvis with contrast showed mass in the left lobe with left hilar and mediastinal LAD, necrotic liver lesion, brain MRI c/f mets but significant motion artifact. Brain MRI w two foci suggestive of subacute infarcts, but cannot exclude mets. 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 - Oncology consulted - Received chemotherapy 04/19 with carboplatin and etoposide. - S/p Neulast for chemo induced neutropenia ppx - Monitoring counts and transfusing as needed. 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 Has not undergone biopsy as of yet. Progressively worsening shortness of breath, oxygen requirement, difficulty with ADLs at home, weight loss. CT chest abdomen and pelvis with contrast showed mass in the left lobe with left hilar and mediastinal LAD, necrotic liver lesion, brain MRI c/f mets but significant motion artifact. Brain MRI w two foci suggestive of subacute infarcts, but cannot exclude mets. 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 - Oncology consulted - Received chemotherapy 04/19 with carboplatin and etoposide. - S/p Neulast for chemo induced neutropenia ppx - Monitoring counts and transfusing as needed. 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 Has not undergone biopsy as of yet. Progressively worsening shortness of breath, oxygen requirement, difficulty with ADLs at home, weight loss. CT chest abdomen and pelvis with contrast showed mass in the left lobe with left hilar and mediastinal LAD, necrotic liver lesion, brain MRI c/f mets but significant motion artifact. Brain MRI w two foci suggestive of subacute infarcts, but cannot exclude mets. 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 - Oncology consulted - Received chemotherapy 04/19 with carboplatin and etoposide. Monitoring counts and transfusing as needed. 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 Has not undergone biopsy as of yet. Progressively worsening shortness of breath, oxygen requirement, difficulty with ADLs at home, weight loss. CT chest abdomen and pelvis with contrast showed mass in the left lobe with left hilar and mediastinal LAD, necrotic liver lesion, brain MRI c/f mets but significant motion artifact. Brain MRI w two foci suggestive of subacute infarcts, but cannot exclude mets. 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 Has not undergone biopsy as of yet. Progressively worsening shortness of breath, oxygen requirement, difficulty with ADLs at home, weight loss. CT chest abdomen and pelvis with contrast showed mass in the left lobe with left hilar and mediastinal LAD, necrotic liver lesion, brain MRI c/f mets but significant motion artifact. Brain MRI w two foci suggestive of subacute infarcts, but cannot exclude mets. 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 Has not undergone biopsy as of yet. Progressively worsening shortness of breath, oxygen requirement, difficulty with ADLs at home, weight loss. CT chest abdomen and pelvis with contrast showed mass in the left lobe with left hilar and mediastinal LAD, necrotic liver lesion, brain MRI c/f mets but significant motion artifact. Brain MRI w two foci suggestive of subacute infarcts, but cannot exclude mets. 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 Has not undergone biopsy as of yet. Progressively worsening shortness of breath, oxygen requirement, difficulty with ADLs at home, weight loss. CT chest abdomen and pelvis with contrast showed mass in the left lobe with left hilar and mediastinal LAD, necrotic liver lesion, brain MRI c/f mets but significant motion artifact. Brain MRI w two foci suggestive of subacute infarcts, but cannot exclude mets. 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 Has not undergone biopsy as of yet. Progressively worsening shortness of breath, oxygen requirement, difficulty with ADLs at home, weight loss. CT chest abdomen and pelvis with contrast showed mass in the left lobe with left hilar and mediastinal LAD, necrotic liver lesion, brain MRI c/f mets but significant motion artifact. Brain MRI w two foci suggestive of subacute infarcts, but cannot exclude mets. 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 Has not undergone biopsy as of yet. Progressively worsening shortness of breath, oxygen requirement, difficulty with ADLs at home, weight loss. CT chest abdomen and pelvis with contrast showed mass in the left lobe with left hilar and mediastinal LAD, necrotic liver lesion, brain MRI c/f mets but significant motion artifact. Brain MRI w two foci suggestive of subacute infarcts, but cannot exclude mets. 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 Has not undergone biopsy as of yet. Progressively worsening shortness of breath, oxygen requirement, difficulty with ADLs at home, weight loss. CT chest abdomen and pelvis with contrast showed mass in the left lobe with left hilar and mediastinal LAD, necrotic liver lesion, brain MRI c/f mets but significant motion artifact. Brain MRI w two foci suggestive of subacute infarcts, but cannot exclude mets. 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 Has not undergone biopsy as of yet. Progressively worsening shortness of breath, oxygen requirement, difficulty with ADLs at home, weight loss. CT chest abdomen and pelvis with contrast showed mass in the left lobe with left hilar and mediastinal LAD, necrotic liver lesion, brain MRI c/f mets but significant motion artifact. Brain MRI w two foci suggestive of subacute infarcts, but cannot exclude mets. 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 Has not undergone biopsy as of yet. Progressively worsening shortness of breath, oxygen requirement, difficulty with ADLs at home, weight loss. CT chest abdomen and pelvis with contrast showed mass in the left lobe with left hilar and mediastinal LAD, necrotic liver lesion, brain MRI c/f mets but significant motion artifact. Brain MRI w two foci suggestive of subacute infarcts, but cannot exclude mets. 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 Has not undergone biopsy as of yet. Progressively worsening shortness of breath, oxygen requirement, difficulty with ADLs at home, weight loss. CT chest abdomen and pelvis with contrast showed mass in the left lobe with left hilar and mediastinal LAD, necrotic liver lesion, brain MRI c/f mets but significant motion artifact. Brain MRI w two foci suggestive of subacute infarcts, but cannot exclude mets. 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 Has not undergone biopsy as of yet. Progressively worsening shortness of breath, oxygen requirement, difficulty with ADLs at home, weight loss. CT chest abdomen and pelvis with contrast showed mass in the left lobe with left hilar and mediastinal LAD, necrotic liver lesion, brain MRI c/f mets but significant motion artifact. Brain MRI w two foci suggestive of subacute infarcts, but cannot exclude mets. 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 Has not undergone biopsy as of yet. Progressively worsening shortness of breath, oxygen requirement, difficulty with ADLs at home, weight loss CT chest abdomen and pelvis with contrast showed mass in the left lobe with left hilar and mediastinal LAD, necrotic liver lesion, brain MRI c/f mets but significant motion artifact Had liver biopsy on 04/09, pathology did not review yet Brain MRI w two foci suggestive of subacute infarcts, but cannot exclude mets, recommending follow up imaging Plan: - Continue supplemental O2, wean as able - DuoNebs p.r.n., start LAMA/LABA, albuterol prn -Suctioning q4, aerobica - [facility] consult , awaiting pathology Assessment & Plan (04/11/2025 7:59 PM CDT): Directed to the ED for admission from oncology clinic for expedited workup and management of 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 Has not undergone biopsy as of yet. Progressively worsening shortness of breath, oxygen requirement, difficulty with ADLs at home, weight loss CT chest abdomen and pelvis with contrast showed mass in the left lobe with left hilar and mediastinal LAD, necrotic liver lesion, brain MRI c/f mets but significant motion artifact Had liver biopsy on 04/09, pathology did not review yet Brain MRI w two foci suggestive of subacute infarcts, but cannot exclude mets, recommending follow up imaging Plan: - Continue supplemental O2, wean as able - DuoNebs p.r.n., start LAMA/LABA, albuterol prn -Suctioning q4, aerobica - [facility]ology consult , awaiting pathology Assessment & Plan (04/10/2025 6:47 PM CDT): Directed to the ED for admission from oncology clinic for expedited workup and management of 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 Has not undergone biopsy as of yet. Progressively worsening shortness of breath, oxygen requirement, difficulty with ADLs at home, weight loss CT chest abdomen and pelvis with contrast showed mass in the left lobe with left hilar and mediastinal LAD, necrotic liver lesion, brain MRI c/f mets but significant motion artifact Had liver biopsy on 04/09, pathology did not review yet Brain MRI w two foci suggestive of subacute infarcts, but cannot exclude mets, recommending follow up imaging Plan: - Continue supplemental O2, wean as able - DuoNebs p.r.n., start LAMA/LABA, albuterol prn -Suctioning q4, aerobica - [facility] consult , awaiting pathology Assessment & Plan (04/09/2025 8:57 PM CDT): Directed to the ED for admission from oncology clinic for expedited workup and management of 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 Has not undergone biopsy as of yet. Progressively worsening shortness of breath, oxygen requirement, difficulty with ADLs at home, weight loss CT chest abdomen and pelvis with contrast showed mass in the left lobe with left hilar and mediastinal LAD, necrotic liver lesion, brain MRI c/f mets but significant motion artifact Had liver biopsy on 04/09, pathology did not review yet, will review tmr Brain MRI w two foci suggestive of subacute infarcts, but cannot exclude mets, recommending follow up imaging Plan: - Continue supplemental O2, wean as able - DuoNebs p.r.n., start LAMA/LABA, albuterol prn - [facility] consult Assessment & Plan (04/08/2025 8:17 PM CDT): Directed to the ED for admission from oncology clinic for expedited workup and management of 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 Has not undergone biopsy as of yet. Progressively worsening shortness of breath, oxygen requirement, difficulty with ADLs at home, weight loss CT chest abdomen and pelvis with contrast showed mass in the left lobe with left hilar and mediastinal LAD, necrotic liver lesion, brain MRI c/f mets but significant motion artifact Plan: - Liver biopsy with IR tomorrow, NPO midnight, coags - Continue supplemental O2, wean as able - DuoNebs p.r.n., start LAMA/LABA, albuterol prn - [facility] consult Assessment & Plan (04/07/2025 5:48 AM CDT): Directed to the ED for admission from oncology clinic for expedited workup and management of 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 Has not undergone biopsy as of yet. Progressively worsening shortness of breath, oxygen requirement, difficulty with ADLs at home, weight loss - CT chest abdomen and pelvis with contrast and brain MRI to complete metastatic workup - IR consult for biopsy - Continue supplemental O2, wean as able - DuoNebs p.r.n., start LAMA/LABA - [facility]ology consult on arrived floor Urinary retention 04/07/2025 Assessment & Plan (04/28/2025 7:44 AM CDT): Espinosa placed last week due to urinary retention. - Continue flomax 0.8mg daily - Will need void trial at [facility] and recommended outpatient urology follow up. Assessment & Plan (04/27/2025 1:05 PM CDT): Espinosa placed last week due to urinary retention. - Continue flomax 0.8mg daily - Will need void trial at [facility] and recommended outpatient urology follow up. Assessment & Plan (04/26/2025 7:13 AM CDT): Espinosa placed last week due to urinary retention. Noted - Continue flomax 0.8mg daily Assessment & Plan (04/25/2025 7:31 AM CDT): Espinosa placed last week due to urinary retention. Noted - Continue flomax 0.8mg daily Assessment & Plan (04/24/2025 7:32 AM CDT): Espinosa placed last week due to urinary retention. Noted - Continue flomax 0.8mg daily Assessment & Plan (04/23/2025 7:17 AM CDT): Espinosa placed last week due to urinary retention. Noted - Continue flomax 0.8mg daily Assessment & Plan (04/22/2025 7:23 AM CDT): Espinosa placed last week due to urinary retention. Noted - Continue flomax 0.8mg daily Assessment & Plan (04/21/2025 7:28 AM CDT): Espinosa placed last week due to urinary retention. Noted - Continue flomax 0.8mg daily Assessment & Plan (04/20/2025 7:21 AM CDT): Espinosa placed last week due to urinary retention. Noted - Continue flomax 0.8mg daily Assessment & Plan (04/19/2025 10:38 AM CDT): Espinosa placed last week due to urinary retention. Noted - Continue flomax 0.8mg daily Assessment & Plan (04/18/2025 10:37 AM CDT): Espinosa placed last week due to urinary retention. Noted - Continue flomax 0.8mg daily Assessment & Plan (04/17/2025 10:17 AM CDT): Espinosa placed last week due to urinary retention. Noted - Continue flomax 0.8mg daily Assessment & Plan (04/16/2025 9:52 AM CDT): Espinosa placed last week due to urinary retention. Noted - Continue flomax 0.8mg daily Assessment & Plan (04/15/2025 11:39 AM CDT): Espinosa placed last week due to urinary retention. Noted - Continue flomax 0.8mg daily Assessment & Plan (04/14/2025 10:29 AM CDT): Espinosa placed last week due to urinary retention. Noted - Continue flomax 0.8mg daily Assessment & Plan (04/13/2025 2:27 PM CDT): Espinosa placed last week due to urinary retention - increase flomax to 0.8mg daily Assessment & Plan (04/12/2025 8:28 PM CDT): Espinosa placed last week due to urinary retention - increase flomax to 0.8mg daily Assessment & Plan (04/11/2025 7:59 PM CDT): Espinosa placed last week due to urinary retention - increase flomax to 0.8mg daily Assessment & Plan (04/10/2025 6:47 PM CDT): Espinosa placed last week due to urinary retention - increase flomax to 0.8mg daily - consider void trial when on floor Assessment & Plan (04/09/2025 8:57 PM CDT): Espinosa placed last week due to urinary retention - increase flomax to 0.8mg daily - consider void trial when on floor Assessment & Plan (04/08/2025 8:17 PM CDT): Espinosa placed last week due to urinary retention - increase flomax to 0.8mg daily - consider void trial when on floor Assessment & Plan (04/07/2025 5:48 AM CDT): Espinosa placed last week due to urinary retention - increase flomax to 0.8mg daily - consider void trial when on floor Bilateral lower extremity edema 04/07/2025 Assessment & Plan (05/30/2025 7:21 AM CDT): Present since initial presentation in 03/2025, but significantly improved since then. Managed with daily lasix Plan: -Continue PO lasix 40 mg daily Assessment & Plan (05/29/2025 7:14 AM CDT): Present since initial presentation in 03/2025, but significantly improved since then. Managed with daily lasix Plan: -Continue PO lasix 40 mg daily Assessment & Plan (05/28/2025 11:53 AM CDT): Present since initial presentation in 03/2025, but significantly improved since then. Managed with daily lasix Plan: -Continue PO lasix 40 mg daily Assessment & Plan (05/27/2025 8:27 AM CDT): Present since initial presentation in 03/2025, but significantly improved since then. Managed with daily lasix Plan: Continue PO lasix 40 mg daily Assessment & Plan (05/26/2025 10:52 AM CDT): Present since initial presentation in 03/2025, but significantly improved since then. Managed with daily lasix Plan: Continue PO lasix 40 mg daily Assessment & Plan (05/25/2025 8:53 PM CDT): Present since initial presentation in 03/2025, but significantly improved since then. Managed with daily lasix - Continue PO lasix 40 mg daily Assessment & Plan (04/28/2025 7:44 AM CDT): Since 1 month - prior to chemo initiation. TTE on 04/13 - normal systolic/diastolic function. Managed with Lasix - appreciable improvement in symptoms. Decreased lasix to daily with improvement in HCO3 and without significant worsening in [place] - S/p IV diuresis with IV lasix 40 mg daily. - Switched to oral Lasix 40 mg every day (04/25) Assessment & Plan (04/27/2025 1:03 PM CDT): Since 1 month - prior to chemo initiation. TTE on 04/13 - normal systolic/diastolic function. Managed with Lasix - appreciable improvement in symptoms. Decreased lasix to daily with improvement in HCO3 and without significant worsening in [place] - S/p IV diuresis with IV lasix 40 mg daily. - Switched to oral Lasix 40 mg every day (04/25) Assessment & Plan (04/26/2025 7:13 AM CDT): Since 1 month - prior to chemo initiation Differentials - Diastolic heart failure, hypoalbuminemia, venous insufficiency Unclear etiology TTE on 04/13 - normal systolic/diastolic function. Managed with Lasix - appreciable improvement in symptoms. Decreased lasix to daily with improvement in HCO3 and without significant worsening in [place] - S/p IV diuresis with IV lasix 40 mg daily. -Switched to oral Lasix 40 mg every day (04/25) Assessment & Plan (04/25/2025 9:23 AM CDT): Since 1 month - prior to chemo initiation Differentials - Diastolic heart failure, hypoalbuminemia, venous insufficiency Unclear etiology TTE on 04/13 - normal systolic/diastolic function. Managed with Lasix - appreciable improvement in symptoms. Decreased lasix to daily with improvement in HCO3 and without significant worsening in [place] - S/p IV diuresis with IV lasix 40 mg daily. -Switched to oral Lasix 40 mg every day (04/25) Assessment & Plan (04/24/2025 10:17 AM CDT): Started recent on Lasix 20 mg daily outpatient for management of peripheral edema. TTE on 04/13 with normal systolic/diastolic function. Unclear etiology but managing with IV lasix with appreciable improvement in symptoms. Decreased lasix to daily with improvement in HCO3 and without significant worsening in [place] - Continue IV lasix 40 mg daily. Switch to oral Lasix from 04/25 Assessment & Plan (04/23/2025 7:17 AM CDT): Started recent on Lasix 20 mg daily outpatient for management of peripheral edema. TTE on 04/13 with normal systolic/diastolic function. Unclear etiology but managing with IV lasix with appreciable improvement in symptoms. Decreased lasix to daily with improvement in HCO3 and without significant worsening in [place] - Continue IV lasix 40 mg daily Assessment & Plan (04/22/2025 7:23 AM CDT): Started recent on Lasix 20 mg daily outpatient for management of peripheral edema. TTE on 04/13 with normal systolic/diastolic function. Unclear etiology but managing with IV lasix with appreciable improvement in symptoms. Decreased lasix to daily with improvement in HCO3 and without significant worsening in [place] - Continue IV lasix 40 mg daily Assessment & Plan (04/21/2025 7:28 AM CDT): Started recent on Lasix 20 mg daily outpatient for management of peripheral edema. TTE on 04/13 with normal systolic/diastolic function. Unclear etiology but managing with IV lasix with appreciable improvement in symptoms. Decreased lasix to daily with improvement in HCO3 and without significant worsening in [place] - Continue IV lasix 40 mg daily Assessment & Plan (04/20/2025 7:21 AM CDT): Started recent on Lasix 20 mg daily outpatient for management of peripheral edema. TTE on 04/13 with normal systolic/diastolic function. Unclear etiology but managing with IV lasix with appreciable improvement in symptoms. Decreased lasix to daily with improvement in HCO3 and without significant worsening in [place] - Continue IV lasix 40 mg daily Assessment & Plan (04/19/2025 10:38 AM CDT): Started recent on Lasix 20 mg daily outpatient for management of peripheral edema. TTE on 04/13 with normal systolic/diastolic function. Unclear etiology but managing with IV lasix with appreciable improvement in symptoms. Decreased lasix to daily with improvement in HCO3 and without significant worsening in [place] - Continue IV lasix 40 mg daily Assessment & Plan (04/18/2025 10:37 AM CDT): Started recent on Lasix 20 mg daily outpatient for management of peripheral edema. TTE on 04/13 with normal systolic/diastolic function. Unclear etiology but managing with IV lasix with appreciable improvement in symptoms. Patient has worsening alkalosis most likely from contraction. Given improvement in [place], will decrease lasix to daily - Decrease IV lasix 40 mg to daily Assessment & Plan (04/17/2025 10:17 AM CDT): Started recent on Lasix 20 mg daily outpatient for management of peripheral edema. TTE on 04/13 with normal systolic/diastolic function. Unclear etiology but managing with IV lasix with improvement in symptoms - Continue IV lasix 40 mg BID Assessment & Plan (04/16/2025 9:52 AM CDT): Started recent on Lasix 20 mg daily outpatient for management of peripheral edema. TTE on 04/13 with normal systolic/diastolic function. Unclear etiology but managing with lasix. Patient's UOP has decreased on higher dose. Will further increase to help reduce SABRINA - Continue IV lasix 40 mg BID Assessment & Plan (04/15/2025 11:39 AM CDT): Started recent on Lasix 20 mg daily outpatient for management of peripheral edema. TTE on 04/13 with normal systolic/diastolic function. Unclear etiology but managing with lasix. Patient's UOP has decreased on higher dose. Will further increase to help reduce SABR[place] - Change to IV lasix 40 mg BID Assessment & Plan (04/14/2025 10:29 AM CDT): Started recent on Lasix 20 mg daily outpatient for management of peripheral edema. TTE on 04/13 with normal systolic/diastolic function. Unclear etiology but managing with lasix. Increasing dose as patient tolerated daily dosing well - Increase PO Lasix 20 mg to BID Assessment & Plan (04/13/2025 2:27 PM CDT): Started recent on Lasix 20 mg daily outpatient for management of peripheral edema. TTE on 04/13 with normal systolic/diastolic function. Unclear etiology but managing with lasix daily - Lasix 20 mg daily Assessment & Plan (04/12/2025 8:28 PM CDT): Started recent on Lasix 20 mg daily outpatient for management of peripheral edema. No TTE on record - TTE Assessment & Plan (04/11/2025 7:59 PM CDT): Started recent on Lasix 20 mg daily outpatient for management of peripheral edema. No TTE on record - TTE Assessment & Plan (04/10/2025 6:47 PM CDT): Started recent on Lasix 20 mg daily outpatient for management of peripheral edema. No TTE on record - TTE - hold lasix for hyponatremia, see above Assessment & Plan (04/09/2025 8:57 PM CDT): Started recent on Lasix 20 mg daily outpatient for management of peripheral edema. No TTE on record - TTE - hold lasix for hyponatremia, see above Assessment & Plan (04/08/2025 8:17 PM CDT): Started recent on Lasix 20 mg daily outpatient for management of peripheral edema. No TTE on record - TTE - hold lasix for hyponatremia, see above Assessment & Plan (04/07/2025 5:48 AM CDT): Started recent on Lasix 20 mg daily outpatient for management of peripheral edema. No TTE on record - TTE - hold lasix for hyponatremia, see above Hyponatremia 04/07/2025 Assessment & Plan (04/28/2025 7:44 AM CDT): -Na 131 on admission. Now improved -CTM daily Assessment & Plan (04/27/2025 1:03 PM CDT): -Na 131 on admission. Now improved -CTM daily Assessment & Plan (04/26/2025 7:13 AM CDT): -Na 131 on admission. -Improved and stable on diuresis Assessment & Plan (04/25/2025 9:23 AM CDT): -Na 131 on admission. -Improved and stable on diuresis Assessment & Plan (04/24/2025 7:32 AM CDT): Na 131 on admission. In setting of suspected lung cancer and also recently started on diuretic. With LE edema recurring now. No neuro or mentation concerns at this time. Improved and stable on diuresis - Lasix as elsewhere Assessment & Plan (04/23/2025 7:17 AM CDT): Na 131 on admission. In setting of suspected lung cancer and also recently started on diuretic. With LE edema recurring now. No neuro or mentation concerns at this time. Improved and stable on diuresis - Lasix as elsewhere Assessment & Plan (04/22/2025 7:23 AM CDT): Na 131 on admission. In setting of suspected lung cancer and also recently started on diuretic. With LE edema recurring now. No neuro or mentation concerns at this time. Improved and stable on diuresis - Lasix as elsewhere Assessment & Plan (04/21/2025 3:22 PM CDT): Na 131 on admission. In setting of suspected lung cancer and also recently started on diuretic. With LE edema recurring now. No neuro or mentation concerns at this time. Improved and stable on diuresis - Lasix as elsewhere Assessment & Plan (04/20/2025 7:21 AM CDT): Na 131 on admission. In setting of suspected lung cancer and also recently started on diuretic. With LE edema recurring now. No neuro or mentation concerns at this time. Improved and stable on diuresis - Lasix as elsewhere - Trend Na Assessment & Plan (04/19/2025 10:38 AM CDT): Na 131 on admission. In setting of suspected lung cancer and also recently started on diuretic. With LE edema recurring now. No neuro or mentation concerns at this time. Improved and stable on diuresis - Lasix as elsewhere - Trend Na Assessment & Plan (04/18/2025 10:37 AM CDT): Na 131 on admission. In setting of suspected lung cancer and also recently started on diuretic. With LE edema recurring now. No neuro or mentation concerns at this time. Improved and stable on diuresis - Lasix as elsewhere - Trend Na Assessment & Plan (04/17/2025 10:17 AM CDT): Na 131 on admission. In setting of suspected lung cancer and also recently started on diuretic. With LE edema recurring now. No neuro or mentation concerns at this time. Improving with increasing dose of lasix and fluid restriction - Lasix as elsewhere - Fluid restrict 1.5L - Trend Na Assessment & Plan (04/16/2025 9:52 AM CDT): Na 131 on admission. In setting of suspected lung cancer and also recently started on diuretic. With LE edema recurring now. No neuro or mentation concerns at this time. Improving with increasing dose of lasix and fluid restriction - Lasix as elsewhere - Fluid restrict 1.5L - Trend Na Assessment & Plan (04/15/2025 11:39 AM CDT): Na 131 on admission. In setting of suspected lung cancer and also recently started on diuretic. With LE edema recurring now. No neuro or mentation concerns at this time. Improving with increasing dose of lasix and fluid restriction - Lasix as elsewhere - Fluid restrict 1.5L - Trend Na Assessment & Plan (04/14/2025 10:29 AM CDT): Na 131 on admission. In setting of suspected lung cancer and also recently started on diuretic. With LE edema recurring now. No neuro or mentation concerns at this time. Improving with increasing dose of lasix and fluid restriction - Lasix as elsewhere - Fluid restrict 1.5L - Trend Na Assessment & Plan (04/13/2025 2:27 PM CDT): Na 131 on admission. In setting of suspected lung cancer and also recently started on diuretic. With LE edema recurring now. No neuro or mentation concerns at this time. Increasing lasix to daily - Lasix 20 mg daily - Fluid restrict 1.5L - Trend Na Assessment & Plan (04/12/2025 8:28 PM CDT): Na 131 on admission. In setting of suspected lung cancer and also recently started on diuretic. With LE edema recurring now. No neuro or mentation concerns at this time - Resume furosemide very other day - fluid restrict 1.5L - trend Na Assessment & Plan (04/11/2025 7:59 PM CDT): Na 131 on admission. In setting of suspected lung cancer and also recently started on diuretic. With LE edema recurring now. No neuro or mentation concerns at this time - Resume furosemide low dose - fluid restrict 1.5L - trend Na Assessment & Plan (04/10/2025 6:47 PM CDT): Na 131 on admission. In setting of suspected lung cancer and also recently started on diuretic. With LE edema recurring now. No neuro or mentation concerns at this time - Resume furosemide low dose - fluid restrict 1.5L - trend Na Assessment & Plan (04/09/2025 8:57 PM CDT): Na 131 on admission. In setting of suspected lung cancer and also recently started on diuretic. With LE edema recurring now. No neuro or mentation concerns at this time - hold lasix for now - fluid restrict 1.5L - trend Na Assessment & Plan (04/08/2025 8:17 PM CDT): Na 131 on admission. In setting of suspected lung cancer and also recently started on diuretic. With LE edema recurring now. No neuro or mentation concerns at this time - hold lasix for now - urine osm, urine Na, serum osm - fluid restrict 1.5L - trend Na Assessment & Plan (04/07/2025 5:49 AM CDT): Na 131 on admission. In setting of suspected lung cancer and also recently started on diuretic. With LE edema recurring now. No neuro or mentation concerns at this time - hold lasix for now - urine osm, urine Na, serum osm - fluid restrict 1.5L - trend Na Elevated LFTs 04/07/2025 Assessment & Plan (04/28/2025 7:44 AM CDT): - AST and ALT in low 100s in setting of liver lesions - Monitor CMP Assessment & Plan (04/27/2025 1:03 PM CDT): - AST and ALT in low 100s in setting of liver lesions - Monitor CMP Assessment & Plan (04/26/2025 7:13 AM CDT): - AST and ALT in low 100s in setting of liver lesions - Monitor CMP Assessment & Plan (04/25/2025 9:23 AM CDT): - AST and ALT in low 100s in setting of liver lesions - Monitor CMP Assessment & Plan (04/24/2025 7:32 AM CDT): AST and ALT in low 100s in setting of liver lesions - Monitor CMP Assessment & Plan (04/23/2025 7:17 AM CDT): AST and ALT in low 100s in setting of liver lesions - Monitor CMP Assessment & Plan (04/22/2025 7:23 AM CDT): AST and ALT in low 100s in setting of liver lesions - Monitor CMP Assessment & Plan (04/21/2025 7:28 AM CDT): AST and ALT in low 100s in setting of liver lesions - Monitor CMP Assessment & Plan (04/20/2025 7:21 AM CDT): AST and ALT in low 100s in setting of liver lesions - Monitor CMP Assessment & Plan (04/19/2025 10:38 AM CDT): AST and ALT in low 100s in setting of liver lesions - Monitor CMP Assessment & Plan (04/18/2025 10:37 AM CDT): AST and ALT in low 100s in setting of liver lesions - Monitor CMP Assessment & Plan (04/17/2025 10:17 AM CDT): AST and ALT in low 100s in setting of liver lesions - Monitor CMP Assessment & Plan (04/16/2025 9:52 AM CDT): AST and ALT in low 100s in setting of liver lesions - Monitor CMP Assessment & Plan (04/15/2025 11:39 AM CDT): AST and ALT in low 100s in setting of liver lesions - Monitor CMP Assessment & Plan (04/14/2025 10:29 AM CDT): AST and ALT in low 100s in setting of liver lesions - Monitor CMP Assessment & Plan (04/13/2025 2:27 PM CDT): AST and ALT in low 100s in setting of liver lesions - monitor CMP Assessment & Plan (04/12/2025 8:28 PM CDT): AST and ALT in low 100s, in setting of liver lesions - monitor CMP Assessment & Plan (04/11/2025 7:59 PM CDT): AST and ALT in low 100s, in setting of liver lesions - monitor CMP Assessment & Plan (04/10/2025 6:47 PM CDT): AST and ALT in low 100s, in setting of liver lesions - monitor CMP Assessment & Plan (04/09/2025 8:57 PM CDT): AST and ALT in low 100s, in setting of liver lesions - monitor CMP Assessment & Plan (04/08/2025 8:17 PM CDT): AST and ALT in low 100s, in setting of liver lesions - monitor CMP Assessment & Plan (04/07/2025 5:07 AM CDT): AST and ALT in low 100s, in setting of liver lesions - monitor CMP Carotid artery disease 04/07/2025 Assessment & Plan (05/30/2025 7:21 AM CDT): S/p PCI in 2019, currently on statin and plavix. Plavix may have contributed to recent episode of hemoptysis. Will hold for now Plan: -Continue statin -Hold plavix-can resume at discharge Assessment & Plan (05/29/2025 7:14 AM CDT): S/p PCI in 2019, currently on statin and plavix. Plavix may have contributed to recent episode of hemoptysis. Will hold for now Plan: -Continue statin -Hold plavix-can resume at discharge Assessment & Plan (05/28/2025 11:53 AM CDT): S/p PCI in 2019, currently on statin and plavix. Plavix may have contributed to recent episode of hemoptysis. Will hold for now Plan: -Continue statin -Hold plavix-can resume at discharge Assessment & Plan (05/27/2025 1:09 PM CDT): S/p PCI in 2019, currently on statin and plavix. Plavix may have contributed to recent episode of hemoptysis. Will hold for now Plan: Continue statin Hold plavix-can resume at discharge Assessment & Plan (05/26/2025 10:52 AM CDT): S/p PCI in 2019, currently on statin and plavix. Plavix may have contributed to recent episode of hemoptysis. Will hold for now Plan: Continue statin Hold plavix Assessment & Plan (05/25/2025 8:53 PM CDT): S/p PCI in 2019, currently on statin and plavix. Plavix may have contributed to recent episode of hemoptysis. Will hold for now - Continue statin - Hold plavix Assessment & Plan (04/28/2025 7:44 AM CDT): S/p stenting in 2019 - continue statin, plavix Assessment & Plan (04/27/2025 1:03 PM CDT): S/p stenting in 2019 - continue statin, plavix Assessment & Plan (04/26/2025 7:13 AM CDT): S/p stenting in 2019 - continue statin, plavix Assessment & Plan (04/25/2025 7:31 AM CDT): S/p stenting in 2019 - continue statin, plavix Assessment & Plan (04/24/2025 7:32 AM CDT): S/p stenting in 2019 - continue statin, plavix Assessment & Plan (04/23/2025 7:17 AM CDT): S/p stenting in 2018 - continue statin, plavix Assessment & Plan (04/22/2025 7:23 AM CDT): S/p stenting in 2018 - continue statin, plavix Assessment & Plan (04/21/2025 7:28 AM CDT): S/p stenting in 2018 - continue statin, plavix Assessment & Plan (04/20/2025 7:21 AM CDT): S/p stenting in 2018 statin, plavix Assessment & Plan (04/19/2025 10:38 AM CDT): S/p stenting in 2018 statin, plavix Assessment & Plan (04/18/2025 10:37 AM CDT): S/p stenting in 2018 statin, plavix Assessment & Plan (04/17/2025 10:17 AM CDT): S/p stenting in 2018 statin, plavix Assessment & Plan (04/16/2025 9:52 AM CDT): S/p stenting in 2018 continue statin, plavix Assessment & Plan (04/15/2025 11:39 AM CDT): S/p stenting in 2018 - continue statin, plavix Assessment & Plan (04/14/2025 10:29 AM CDT): S/p stenting in 2018 - continue statin, plavix Assessment & Plan (04/13/2025 2:27 PM CDT): S/p stenting in 2018 - continue statin - Resume clopidogrel given brain MRI findings (last does on 03/29) -Neuro and neurovascular checks q4, telemetry Assessment & Plan (04/12/2025 8:28 PM CDT): S/p stenting in 2019 - continue statin - Resume clopidogrel given brain MRI findings (last does on 03/29) -Neuro and neurovascular checks q4, telemetry Assessment & Plan (04/11/2025 7:59 PM CDT): S/p stenting in 2019 - continue statin - Resume clopidogrel given brain MRI findings (last does on 03/29) -Neuro and neurovascular checks q4, telemetry Assessment & Plan (04/10/2025 6:47 PM CDT): S/p stenting in 2019 - continue statin - Resume clopidogrel given brain MRI findings (last does on 03/29) -Neuro and neurovascular checks q4, telemetry Assessment & Plan (04/09/2025 8:57 PM CDT): S/p stenting in 2019 - continue statin - will fu with pathology tmr to see if diagnostic, Resume clopidogrel tmr am given brain MRI findings (last does on 03/29) -Neuro and neurovascular checks q4, telemetry Assessment & Plan (04/08/2025 8:17 PM CDT): S/p stenting in 2019 - continue statin - hold plavix for possible bxp (last does on 03/29) Assessment & Plan (04/07/2025 5:48 AM CDT): S/p stenting in 2019 - continue statin - hold plavix for possible bxp Constipation 04/07/2025 Assessment & Plan (04/28/2025 7:44 AM CDT): Worsening constipation, c/b opioids for pain. Improved with enema - Scheduled miralax daily - Senna prn, dulcolax suppository prn, and escalate bowel regimen as needed Assessment & Plan (04/27/2025 1:03 PM CDT): Worsening constipation, c/b opioids for pain. Improved with enema - Scheduled miralax daily - Senna prn, dulcolax suppository prn, and escalate bowel regimen as needed Assessment & Plan (04/26/2025 7:13 AM CDT): Worsening constipation, c/b opioids for pain. Improved with enema - Scheduled miralax daily - Senna prn, dulcolax suppository prn, and escalate bowel regimen as needed Assessment & Plan (04/25/2025 9:23 AM CDT): Worsening constipation, c/b opioids for pain. Improved with enema - Scheduled miralax daily - Senna prn, dulcolax suppository prn, and escalate bowel regimen as needed Assessment & Plan (04/24/2025 7:32 AM CDT): Worsening constipation, c/b opioids for pain. Improved with enema - Scheduled miralax daily - Senna prn, dulcolax suppository prn, and escalate bowel regimen as needed Assessment & Plan (04/23/2025 7:17 AM CDT): Worsening constipation, c/b opioids for pain. Improved with enema - Scheduled miralax daily - Senna prn, dulcolax suppository prn, and escalate bowel regimen as needed Assessment & Plan (04/22/2025 7:23 AM CDT): Worsening constipation, c/b opioids for pain. Improved with enema - Scheduled miralax daily - Senna prn, dulcolax suppository prn, and escalate bowel regimen as needed Assessment & Plan (04/21/2025 7:28 AM CDT): Worsening constipation, c/b opioids for pain. Improved with enema - Scheduled miralax daily - Senna prn, dulcolax suppository prn, and escalate bowel regimen as needed Assessment & Plan (04/20/2025 7:21 AM CDT): Worsening constipation, c/b opioids for pain. Improved with enema - Scheduled miralax daily - Senna prn, dulcolax suppository prn, and escalate bowel regimen as needed Assessment & Plan (04/19/2025 10:38 AM CDT): Worsening constipation, c/b opioids for pain. Improved with enema - Scheduled miralax daily - Senna prn, dulcolax suppository prn, and escalate bowel regimen as needed Assessment & Plan (04/18/2025 10:37 AM CDT): Worsening constipation, c/b opioids for pain. Improved with enema - Scheduled miralax daily - Senna prn, dulcolax suppository prn, and escalate bowel regimen as needed Assessment & Plan (04/17/2025 10:17 AM CDT): Worsening constipation, c/b opioids for pain. Improved with enema - Scheduled miralax daily - Senna prn, dulcolax suppository prn, and escalate bowel regimen as needed Assessment & Plan (04/16/2025 9:52 AM CDT): Worsening constipation, c/b opioids for pain. Improved with enema - Scheduled miralax daily - Senna prn, dulcolax suppository prn, and escalate bowel regimen as needed Assessment & Plan (04/15/2025 11:39 AM CDT): Worsening constipation, c/b opioids for pain - Scheduled miralax daily - Dulcolax suppository x1 - Senna prn and escalate bowel regimen as needed Assessment & Plan (04/14/2025 10:29 AM CDT): - Scheduled miralax daily - Senna prn and escalate bowel regimen as needed Assessment & Plan (04/13/2025 2:27 PM CDT): Start miralax, senna and escalate bowel regimen as needed Assessment & Plan (04/12/2025 8:28 PM CDT): Start miralax, senna and escalate bowel regimen as needed Assessment & Plan (04/11/2025 7:59 PM CDT): Start miralax, senna and escalate bowel regimen as needed Assessment & Plan (04/10/2025 6:47 PM CDT): Start miralax, senna and escalate bowel regimen as needed Assessment & Plan (04/09/2025 8:57 PM CDT): Start miralax, senna and escalate bowel regimen as needed Assessment & Plan (04/08/2025 8:17 PM CDT): Start miralax, senna and escalate bowel regimen as needed Assessment & Plan (04/07/2025 5:48 AM CDT): Start miralax, senna and escalate bowel regimen as needed Anxiety 04/07/2025 Assessment & Plan (05/30/2025 7:21 AM CDT): -Continue Xanax 0.5 mg q6hr prn Assessment & Plan (05/29/2025 7:14 AM CDT): -Continue Xanax 0.5 mg q6hr prn Assessment & Plan (05/28/2025 11:53 AM CDT): -Continue Xanax 0.5 mg q6hr prn Assessment & Plan (05/27/2025 8:27 AM CDT): Continue Xanax 0.5 mg q6hr prn Assessment & Plan (05/26/2025 10:52 AM CDT): Continue Xanax 0.5 mg q6hr prn Assessment & Plan (05/25/2025 8:53 PM CDT): - Continue Xanax 0.5 mg q6hr prn Assessment & Plan (04/28/2025 7:44 AM CDT): - Continue home xanax 0.5mg QID prn Assessment & Plan (04/27/2025 1:03 PM CDT): - Continue home xanax 0.5mg QID prn Assessment & Plan (04/26/2025 7:13 AM CDT): - Continue home xanax 0.5mg QID prn Assessment & Plan (04/25/2025 9:23 AM CDT): - Continue home xanax 0.5mg QID prn Assessment & Plan (04/24/2025 7:32 AM CDT): - Continue home xanax 0.5mg QID prn Assessment & Plan (04/23/2025 7:17 AM CDT): - Continue home xanax 0.5mg QID prn Assessment & Plan (04/22/2025 7:23 AM CDT): - Continue home xanax 0.5mg QID prn Assessment & Plan (04/21/2025 7:28 AM CDT): - Continue home xanax 0.5mg QID prn Assessment & Plan (04/20/2025 7:21 AM CDT): - Continue home xanax 0.5mg QID prn Assessment & Plan (04/19/2025 10:38 AM CDT): - Continue home xanax 0.5mg QID prn Assessment & Plan (04/18/2025 10:37 AM CDT): - continue home xanax 0.5mg QID PRN Assessment & Plan (04/17/2025 10:17 AM CDT): - continue home xanax 0.5mg QID PRN Assessment & Plan (04/16/2025 9:52 AM CDT): - continue home xanax 0.5mg QID PRN Assessment & Plan (04/15/2025 11:39 AM CDT): - continue home xanax 0.5mg QID PRN Assessment & Plan (04/14/2025 10:29 AM CDT): - continue home xanax 0.5mg QID PRN Assessment & Plan (04/13/2025 2:27 PM CDT): - continue home xanax 0.5mg QID PRN Assessment & Plan (04/12/2025 8:28 PM CDT): - continue home xanax 0.5mg QID PRN Assessment & Plan (04/11/2025 7:59 PM CDT): - continue home xanax 0.5mg QID PRN Assessment & Plan (04/10/2025 6:47 PM CDT): - continue home xanax 0.5mg QID PRN Assessment & Plan (04/09/2025 8:57 PM CDT): - continue home xanax 0.5mg QID PRN Assessment & Plan (04/08/2025 8:17 PM CDT): - continue home xanax 0.5mg QID PRN Assessment & Plan (04/07/2025 5:48 AM CDT): - continue home xanax 0.5mg QID PRN 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 Has not undergone biopsy as of yet. Progressively worsening shortness of breath, oxygen requirement, difficulty with ADLs at home, weight loss. CT chest abdomen and pelvis with contrast showed mass in the left lobe with left hilar and mediastinal LAD, necrotic liver lesion, brain MRI c/f mets but significant motion artifact. Brain MRI w two foci suggestive of subacute infarcts, but cannot exclude mets. 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 Received chemotherapy 04/19 with carboplatin and etoposide. - S/p Neulasta for post chemo induced neutropenia ppx, neutropenic on discharge. Discussed with oncology. This is to be expected given recent chemo. At this point not a barrier to discharge. 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 Has not undergone biopsy as of yet. Progressively worsening shortness of breath, oxygen requirement, difficulty with ADLs at home, weight loss. CT chest abdomen and pelvis with contrast showed mass in the left lobe with left hilar and mediastinal LAD, necrotic liver lesion, brain MRI c/f mets but significant motion artifact. Brain MRI w two foci suggestive of subacute infarcts, but cannot exclude mets. 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 Received chemotherapy 04/19 with carboplatin and etoposide. - S/p Neulast for chemo induced neutropenia ppx - Monitoring counts and transfusing as needed. 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 Has not undergone biopsy as of yet. Progressively worsening shortness of breath, oxygen requirement, difficulty with ADLs at home, weight loss. CT chest abdomen and pelvis with contrast showed mass in the left lobe with left hilar and mediastinal LAD, necrotic liver lesion, brain MRI c/f mets but significant motion artifact. Brain MRI w two foci suggestive of subacute infarcts, but cannot exclude mets. 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 - Oncology consulted - Received chemotherapy 04/19 with carboplatin and etoposide. - S/p Neulast for chemo induced neutropenia ppx - Monitoring counts and transfusing as needed. 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 Has not undergone biopsy as of yet. Progressively worsening shortness of breath, oxygen requirement, difficulty with ADLs at home, weight loss. CT chest abdomen and pelvis with contrast showed mass in the left lobe with left hilar and mediastinal LAD, necrotic liver lesion, brain MRI c/f mets but significant motion artifact. Brain MRI w two foci suggestive of subacute infarcts, but cannot exclude mets. 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 - Oncology consulted - Received chemotherapy 04/19 with carboplatin and etoposide. - S/p Neulast for chemo induced neutropenia ppx - Monitoring counts and transfusing as needed. 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 Has not undergone biopsy as of yet. Progressively worsening shortness of breath, oxygen requirement, difficulty with ADLs at home, weight loss. CT chest abdomen and pelvis with contrast showed mass in the left lobe with left hilar and mediastinal LAD, necrotic liver lesion, brain MRI c/f mets but significant motion artifact. Brain MRI w two foci suggestive of subacute infarcts, but cannot exclude mets. 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 - Oncology consulted - Received chemotherapy 04/19 with carboplatin and etoposide. Monitoring counts and transfusing as needed. 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 Has not undergone biopsy as of yet. Progressively worsening shortness of breath, oxygen requirement, difficulty with ADLs at home, weight loss. CT chest abdomen and pelvis with contrast showed mass in the left lobe with left hilar and mediastinal LAD, necrotic liver lesion, brain MRI c/f mets but significant motion artifact. Brain MRI w two foci suggestive of subacute infarcts, but cannot exclude mets. 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 Has not undergone biopsy as of yet. Progressively worsening shortness of breath, oxygen requirement, difficulty with ADLs at home, weight loss. CT chest abdomen and pelvis with contrast showed mass in the left lobe with left hilar and mediastinal LAD, necrotic liver lesion, brain MRI c/f mets but significant motion artifact. Brain MRI w two foci suggestive of subacute infarcts, but cannot exclude mets. 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 Has not undergone biopsy as of yet. Progressively worsening shortness of breath, oxygen requirement, difficulty with ADLs at home, weight loss. CT chest abdomen and pelvis with contrast showed mass in the left lobe with left hilar and mediastinal LAD, necrotic liver lesion, brain MRI c/f mets but significant motion artifact. Brain MRI w two foci suggestive of subacute infarcts, but cannot exclude mets. 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 Has not undergone biopsy as of yet. Progressively worsening shortness of breath, oxygen requirement, difficulty with ADLs at home, weight loss. CT chest abdomen and pelvis with contrast showed mass in the left lobe with left hilar and mediastinal LAD, necrotic liver lesion, brain MRI c/f mets but significant motion artifact. Brain MRI w two foci suggestive of subacute infarcts, but cannot exclude mets. 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 Has not undergone biopsy as of yet. Progressively worsening shortness of breath, oxygen requirement, difficulty with ADLs at home, weight loss. CT chest abdomen and pelvis with contrast showed mass in the left lobe with left hilar and mediastinal LAD, necrotic liver lesion, brain MRI c/f mets but significant motion artifact. Brain MRI w two foci suggestive of subacute infarcts, but cannot exclude mets. 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 Has not undergone biopsy as of yet. Progressively worsening shortness of breath, oxygen requirement, difficulty with ADLs at home, weight loss. CT chest abdomen and pelvis with contrast showed mass in the left lobe with left hilar and mediastinal LAD, necrotic liver lesion, brain MRI c/f mets but significant motion artifact. Brain MRI w two foci suggestive of subacute infarcts, but cannot exclude mets. 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 Has not undergone biopsy as of yet. Progressively worsening shortness of breath, oxygen requirement, difficulty with ADLs at home, weight loss. CT chest abdomen and pelvis with contrast showed mass in the left lobe with left hilar and mediastinal LAD, necrotic liver lesion, brain MRI c/f mets but significant motion artifact. Brain MRI w two foci suggestive of subacute infarcts, but cannot exclude mets. 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 Has not undergone biopsy as of yet. Progressively worsening shortness of breath, oxygen requirement, difficulty with ADLs at home, weight loss. CT chest abdomen and pelvis with contrast showed mass in the left lobe with left hilar and mediastinal LAD, necrotic liver lesion, brain MRI c/f mets but significant motion artifact. Brain MRI w two foci suggestive of subacute infarcts, but cannot exclude mets. 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 Has not undergone biopsy as of yet. Progressively worsening shortness of breath, oxygen requirement, difficulty with ADLs at home, weight loss. CT chest abdomen and pelvis with contrast showed mass in the left lobe with left hilar and mediastinal LAD, necrotic liver lesion, brain MRI c/f mets but significant motion artifact. Brain MRI w two foci suggestive of subacute infarcts, but cannot exclude mets. 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 Has not undergone biopsy as of yet. Progressively worsening shortness of breath, oxygen requirement, difficulty with ADLs at home, weight loss. CT chest abdomen and pelvis with contrast showed mass in the left lobe with left hilar and mediastinal LAD, necrotic liver lesion, brain MRI c/f mets but significant motion artifact. Brain MRI w two foci suggestive of subacute infarcts, but cannot exclude mets. 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 Has not undergone biopsy as of yet. Progressively worsening shortness of breath, oxygen requirement, difficulty with ADLs at home, weight loss. CT chest abdomen and pelvis with contrast showed mass in the left lobe with left hilar and mediastinal LAD, necrotic liver lesion, brain MRI c/f mets but significant motion artifact. Brain MRI w two foci suggestive of subacute infarcts, but cannot exclude mets. 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 Has not undergone biopsy as of yet. Progressively worsening shortness of breath, oxygen requirement, difficulty with ADLs at home, weight loss CT chest abdomen and pelvis with contrast showed mass in the left lobe with left hilar and mediastinal LAD, necrotic liver lesion, brain MRI c/f mets but significant motion artifact Had liver biopsy on 04/09, pathology did not review yet Brain MRI w two foci suggestive of subacute infarcts, but cannot exclude mets, recommending follow up imaging Plan: - Continue supplemental O2, wean as able - DuoNebs p.r.n., start LAMA/LABA, albuterol prn -Suctioning q4, [employer] - [facility] consult , awaiting pathology Assessment & Plan (04/11/2025 7:59 PM CDT): Directed to the ED for admission from oncology clinic for expedited workup and management of 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 Has not undergone biopsy as of yet. Progressively worsening shortness of breath, oxygen requirement, difficulty with ADLs at home, weight loss CT chest abdomen and pelvis with contrast showed mass in the left lobe with left hilar and mediastinal LAD, necrotic liver lesion, brain MRI c/f mets but significant motion artifact Had liver biopsy on 04/09, pathology did not review yet Brain MRI w two foci suggestive of subacute infarcts, but cannot exclude mets, recommending follow up imaging Plan: - Continue supplemental O2, wean as able - DuoNebs p.r.n., start LAMA/LABA, albuterol prn -Suctioning q4, [facility] - [facility] consult , awaiting pathology Assessment & Plan (04/10/2025 6:47 PM CDT): Directed to the ED for admission from oncology clinic for expedited workup and management of 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 Has not undergone biopsy as of yet. Progressively worsening shortness of breath, oxygen requirement, difficulty with ADLs at home, weight loss CT chest abdomen and pelvis with contrast showed mass in the left lobe with left hilar and mediastinal LAD, necrotic liver lesion, brain MRI c/f mets but significant motion artifact Had liver biopsy on 04/09, pathology did not review yet Brain MRI w two foci suggestive of subacute infarcts, but cannot exclude mets, recommending follow up imaging Plan: - Continue supplemental O2, wean as able - DuoNebs p.r.n., start LAMA/LABA, albuterol prn -Suctioning q4, [employer] - [facility] consult , awaiting pathology Assessment & Plan (04/09/2025 8:57 PM CDT): Directed to the ED for admission from oncology clinic for expedited workup and management of 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 Has not undergone biopsy as of yet. Progressively worsening shortness of breath, oxygen requirement, difficulty with ADLs at home, weight loss CT chest abdomen and pelvis with contrast showed mass in the left lobe with left hilar and mediastinal LAD, necrotic liver lesion, brain MRI c/f mets but significant motion artifact Had liver biopsy on 04/09, pathology did not review yet, will review tmr Brain MRI w two foci suggestive of subacute infarcts, but cannot exclude mets, recommending follow up imaging Plan: - Continue supplemental O2, wean as able - DuoNebs p.r.n., start LAMA/LABA, albuterol prn - [facility] consult Assessment & Plan (04/08/2025 8:17 PM CDT): Directed to the ED for admission from oncology clinic for expedited workup and management of 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 Has not undergone biopsy as of yet. Progressively worsening shortness of breath, oxygen requirement, difficulty with ADLs at home, weight loss CT chest abdomen and pelvis with contrast showed mass in the left lobe with left hilar and mediastinal LAD, necrotic liver lesion, brain MRI c/f mets but significant motion artifact Plan: - Liver biopsy with IR tomorrow, NPO midnight, coags - Continue supplemental O2, wean as able - DuoNebs p.r.n., start LAMA/LABA, albuterol prn - [facility] consult Assessment & Plan (04/07/2025 5:48 AM CDT): Directed to the ED for admission from oncology clinic for expedited workup and management of 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 Has not undergone biopsy as of yet. Progressively worsening shortness of breath, oxygen requirement, difficulty with ADLs at home, weight loss - CT chest abdomen and pelvis with contrast and brain MRI to complete metastatic workup - IR consult for biopsy - Continue supplemental O2, wean as able - DuoNebs p.r.n., start LAMA/LABA - [facility] consult on arrived floor Malignant neoplasm metastatic to bone 04/06/2025 Malignant neoplasm metastatic to liver COPD (chronic obstructive pulmonary disease) Assessment & Plan (05/30/2025 7:21 AM CDT): Patient with history of COPD on 2L NC at baseline. Recently treated for COPD exacerbation after presenting with one episode of hemoptysis that has not recurred. Family notes intermittent compliance with inhalers due to patient preference. Not in exacerbation at this time. Will continue with duonebs and scheduled inhalers while admitted Plan: -Continue Trelegy Ellipta, duonebs prn -Guaifenesin scheduled, tessalon perles prn -Humidified NC Assessment & Plan (05/29/2025 7:14 AM CDT): Patient with history of COPD on 2L NC at baseline. Recently treated for COPD exacerbation after presenting with one episode of hemoptysis that has not recurred. Family notes intermittent compliance with inhalers due to patient preference. Not in exacerbation at this time. Will continue with duonebs and scheduled inhalers while admitted Plan: -Continue Trelegy Ellipta, duonebs prn -Guaifenesin scheduled, tessalon perles prn -Humidified NC Assessment & Plan (05/28/2025 11:53 AM CDT): Patient with history of COPD on 2L NC at baseline. Recently treated for COPD exacerbation after presenting with one episode of hemoptysis that has not recurred. Family notes intermittent compliance with inhalers due to patient preference. Not in exacerbation at this time. Will continue with duonebs and scheduled inhalers while admitted Plan: -Continue Trelegy Ellipta, duonebs prn -Guaifenesin scheduled, tessalon perles prn -Humidified NC Assessment & Plan (05/27/2025 8:27 AM CDT): Patient with history of COPD on 2L NC at baseline. Recently treated for COPD exacerbation after presenting with one episode of hemoptysis that has not recurred. Family notes intermittent compliance with inhalers due to patient preference. Not in exacerbation at this time. Will continue with duonebs and scheduled inhalers while admitted Plan: Continue Trelegy Ellipta, duonebs prn Guaifenesin scheduled, tessalon perles prn Humidified NC Assessment & Plan (05/26/2025 10:52 AM CDT): Patient with history of COPD on 2L NC at baseline. Recently treated for COPD exacerbation after presenting with one episode of hemoptysis that has not recurred. Family notes intermittent compliance with inhalers due to patient preference. Not in exacerbation at this time. Will continue with duonebs and scheduled inhalers while admitted Plan: Continue Trelegy Ellipta, duonebs prn Guaifenesin scheduled, tessalon perles prn Humidified NC Assessment & Plan (05/25/2025 8:55 PM CDT): Patient with history of COPD on 2L NC at baseline. Recently treated for COPD exacerbation after presenting with one episode of hemoptysis that has not recurred. Family notes intermittent compliance with inhalers due to patient preference. Has continued cough but has not appreciably worsened recently. Not in exacerbation at this time. 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 Has not undergone biopsy as of yet. Progressively worsening shortness of breath, oxygen requirement, difficulty with ADLs at home, weight loss. CT chest abdomen and pelvis with contrast showed mass in the left lobe with left hilar and mediastinal LAD, necrotic liver lesion, brain MRI c/f mets but significant motion artifact. Brain MRI w two foci suggestive of subacute infarcts, but cannot exclude mets. 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 Received chemotherapy 04/19 with carboplatin and etoposide. - S/p Neulasta for post chemo induced neutropenia ppx, neutropenic on discharge. Discussed with oncology. This is to be expected given recent chemo. At this point not a barrier to discharge. 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 Has not undergone biopsy as of yet. Progressively worsening shortness of breath, oxygen requirement, difficulty with ADLs at home, weight loss. CT chest abdomen and pelvis with contrast showed mass in the left lobe with left hilar and mediastinal LAD, necrotic liver lesion, brain MRI c/f mets but significant motion artifact. Brain MRI w two foci suggestive of subacute infarcts, but cannot exclude mets. 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 Received chemotherapy 04/19 with carboplatin and etoposide. - S/p Neulast for chemo induced neutropenia ppx - Monitoring counts and transfusing as needed. 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 Has not undergone biopsy as of yet. Progressively worsening shortness of breath, oxygen requirement, difficulty with ADLs at home, weight loss. CT chest abdomen and pelvis with contrast showed mass in the left lobe with left hilar and mediastinal LAD, necrotic liver lesion, brain MRI c/f mets but significant motion artifact. Brain MRI w two foci suggestive of subacute infarcts, but cannot exclude mets. 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 - Oncology consulted - Received chemotherapy 04/19 with carboplatin and etoposide. - S/p Neulast for chemo induced neutropenia ppx - Monitoring counts and transfusing as needed. 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 Has not undergone biopsy as of yet. Progressively worsening shortness of breath, oxygen requirement, difficulty with ADLs at home, weight loss. CT chest abdomen and pelvis with contrast showed mass in the left lobe with left hilar and mediastinal LAD, necrotic liver lesion, brain MRI c/f mets but significant motion artifact. Brain MRI w two foci suggestive of subacute infarcts, but cannot exclude mets. 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 - Oncology consulted - Received chemotherapy 04/19 with carboplatin and etoposide. - S/p Neulast for chemo induced neutropenia ppx - Monitoring counts and transfusing as needed. 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 Has not undergone biopsy as of yet. Progressively worsening shortness of breath, oxygen requirement, difficulty with ADLs at home, weight loss. CT chest abdomen and pelvis with contrast showed mass in the left lobe with left hilar and mediastinal LAD, necrotic liver lesion, brain MRI c/f mets but significant motion artifact. Brain MRI w two foci suggestive of subacute infarcts, but cannot exclude mets. 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 - Oncology consulted - Received chemotherapy 04/19 with carboplatin and etoposide. Monitoring counts and transfusing as needed. 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 Has not undergone biopsy as of yet. Progressively worsening shortness of breath, oxygen requirement, difficulty with ADLs at home, weight loss. CT chest abdomen and pelvis with contrast showed mass in the left lobe with left hilar and mediastinal LAD, necrotic liver lesion, brain MRI c/f mets but significant motion artifact. Brain MRI w two foci suggestive of subacute infarcts, but cannot exclude mets. 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 Has not undergone biopsy as of yet. Progressively worsening shortness of breath, oxygen requirement, difficulty with ADLs at home, weight loss. CT chest abdomen and pelvis with contrast showed mass in the left lobe with left hilar and mediastinal LAD, necrotic liver lesion, brain MRI c/f mets but significant motion artifact. Brain MRI w two foci suggestive of subacute infarcts, but cannot exclude mets. 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 Has not undergone biopsy as of yet. Progressively worsening shortness of breath, oxygen requirement, difficulty with ADLs at home, weight loss. CT chest abdomen and pelvis with contrast showed mass in the left lobe with left hilar and mediastinal LAD, necrotic liver lesion, brain MRI c/f mets but significant motion artifact. Brain MRI w two foci suggestive of subacute infarcts, but cannot exclude mets. 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 Has not undergone biopsy as of yet. Progressively worsening shortness of breath, oxygen requirement, difficulty with ADLs at home, weight loss. CT chest abdomen and pelvis with contrast showed mass in the left lobe with left hilar and mediastinal LAD, necrotic liver lesion, brain MRI c/f mets but significant motion artifact. Brain MRI w two foci suggestive of subacute infarcts, but cannot exclude mets. 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 Has not undergone biopsy as of yet. Progressively worsening shortness of breath, oxygen requirement, difficulty with ADLs at home, weight loss. CT chest abdomen and pelvis with contrast showed mass in the left lobe with left hilar and mediastinal LAD, necrotic liver lesion, brain MRI c/f mets but significant motion artifact. Brain MRI w two foci suggestive of subacute infarcts, but cannot exclude mets. 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 Has not undergone biopsy as of yet. Progressively worsening shortness of breath, oxygen requirement, difficulty with ADLs at home, weight loss. CT chest abdomen and pelvis with contrast showed mass in the left lobe with left hilar and mediastinal LAD, necrotic liver lesion, brain MRI c/f mets but significant motion artifact. Brain MRI w two foci suggestive of subacute infarcts, but cannot exclude mets. 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 Has not undergone biopsy as of yet. Progressively worsening shortness of breath, oxygen requirement, difficulty with ADLs at home, weight loss. CT chest abdomen and pelvis with contrast showed mass in the left lobe with left hilar and mediastinal LAD, necrotic liver lesion, brain MRI c/f mets but significant motion artifact. Brain MRI w two foci suggestive of subacute infarcts, but cannot exclude mets. 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 Has not undergone biopsy as of yet. Progressively worsening shortness of breath, oxygen requirement, difficulty with ADLs at home, weight loss. CT chest abdomen and pelvis with contrast showed mass in the left lobe with left hilar and mediastinal LAD, necrotic liver lesion, brain MRI c/f mets but significant motion artifact. Brain MRI w two foci suggestive of subacute infarcts, but cannot exclude mets. 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 Has not undergone biopsy as of yet. Progressively worsening shortness of breath, oxygen requirement, difficulty with ADLs at home, weight loss. CT chest abdomen and pelvis with contrast showed mass in the left lobe with left hilar and mediastinal LAD, necrotic liver lesion, brain MRI c/f mets but significant motion artifact. Brain MRI w two foci suggestive of subacute infarcts, but cannot exclude mets. 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 Has not undergone biopsy as of yet. Progressively worsening shortness of breath, oxygen requirement, difficulty with ADLs at home, weight loss. CT chest abdomen and pelvis with contrast showed mass in the left lobe with left hilar and mediastinal LAD, necrotic liver lesion, brain MRI c/f mets but significant motion artifact. Brain MRI w two foci suggestive of subacute infarcts, but cannot exclude mets. 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 Has not undergone biopsy as of yet. Progressively worsening shortness of breath, oxygen requirement, difficulty with ADLs at home, weight loss. CT chest abdomen and pelvis with contrast showed mass in the left lobe with left hilar and mediastinal LAD, necrotic liver lesion, brain MRI c/f mets but significant motion artifact. Brain MRI w two foci suggestive of subacute infarcts, but cannot exclude mets. 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 Has not undergone biopsy as of yet. Progressively worsening shortness of breath, oxygen requirement, difficulty with ADLs at home, weight loss CT chest abdomen and pelvis with contrast showed mass in the left lobe with left hilar and mediastinal LAD, necrotic liver lesion, brain MRI c/f mets but significant motion artifact Had liver biopsy on 04/09, pathology did not review yet Brain MRI w two foci suggestive of subacute infarcts, but cannot exclude mets, recommending follow up imaging Plan: - Continue supplemental O2, wean as able - DuoNebs p.r.n., start LAMA/LABA, albuterol prn -Suctioning q4, aerobica - [facility] consult , awaiting pathology Assessment & Plan (04/11/2025 7:59 PM CDT): Directed to the ED for admission from oncology clinic for expedited workup and management of 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 Has not undergone biopsy as of yet. Progressively worsening shortness of breath, oxygen requirement, difficulty with ADLs at home, weight loss CT chest abdomen and pelvis with contrast showed mass in the left lobe with left hilar and mediastinal LAD, necrotic liver lesion, brain MRI c/f mets but significant motion artifact Had liver biopsy on 04/09, pathology did not review yet Brain MRI w two foci suggestive of subacute infarcts, but cannot exclude mets, recommending follow up imaging Plan: - Continue supplemental O2, wean as able - DuoNebs p.r.n., start LAMA/LABA, albuterol prn -Suctioning q4, aerobica - [facility] consult , awaiting pathology Assessment & Plan (04/10/2025 6:47 PM CDT): Directed to the ED for admission from oncology clinic for expedited workup and management of 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 Has not undergone biopsy as of yet. Progressively worsening shortness of breath, oxygen requirement, difficulty with ADLs at home, weight loss CT chest abdomen and pelvis with contrast showed mass in the left lobe with left hilar and mediastinal LAD, necrotic liver lesion, brain MRI c/f mets but significant motion artifact Had liver biopsy on 04/09, pathology did not review yet Brain MRI w two foci suggestive of subacute infarcts, but cannot exclude mets, recommending follow up imaging Plan: - Continue supplemental O2, wean as able - DuoNebs p.r.n., start LAMA/LABA, albuterol prn -Suctioning q4, aerobica - [facility] consult , awaiting pathology Assessment & Plan (04/09/2025 8:57 PM CDT): Directed to the ED for admission from oncology clinic for expedited workup and management of 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 Has not undergone biopsy as of yet. Progressively worsening shortness of breath, oxygen requirement, difficulty with ADLs at home, weight loss CT chest abdomen and pelvis with contrast showed mass in the left lobe with left hilar and mediastinal LAD, necrotic liver lesion, brain MRI c/f mets but significant motion artifact Had liver biopsy on 04/09, pathology did not review yet, will review tmr Brain MRI w two foci suggestive of subacute infarcts, but cannot exclude mets, recommending follow up imaging Plan: - Continue supplemental O2, wean as able - DuoNebs p.r.n., start LAMA/LABA, albuterol prn - [facility] consult Assessment & Plan (04/08/2025 8:17 PM CDT): Directed to the ED for admission from oncology clinic for expedited workup and management of 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 Has not undergone biopsy as of yet. Progressively worsening shortness of breath, oxygen requirement, difficulty with ADLs at home, weight loss CT chest abdomen and pelvis with contrast showed mass in the left lobe with left hilar and mediastinal LAD, necrotic liver lesion, brain MRI c/f mets but significant motion artifact Plan: - Liver biopsy with IR tomorrow, NPO midnight, coags - Continue supplemental O2, wean as able - DuoNebs p.r.n., start LAMA/LABA, albuterol prn - [facility] consult Assessment & Plan (04/07/2025 5:48 AM CDT): Directed to the ED for admission from oncology clinic for expedited workup and management of 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 Has not undergone biopsy as of yet. Progressively worsening shortness of breath, oxygen requirement, difficulty with ADLs at home, weight loss - CT chest abdomen and pelvis with contrast and brain MRI to complete metastatic workup - IR consult for biopsy - Continue supplemental O2, wean as able - DuoNebs p.r.n., start LAMA/LABA - [facility] consult on arrived floor BPH (benign prostatic hyperplasia) Assessment & Plan (05/30/2025 7:21 AM CDT): With chronic espinosa in place. Has failed void trials previously Also has a history of kidney stones that may lead to intermittent episodes of hematuria. Plan: -Continue espinosa -Continue flomax 0.8 mg daily Assessment & Plan (05/29/2025 7:14 AM CDT): With chronic espinosa in place. Has failed void trials previously Also has a history of kidney stones that may lead to intermittent episodes of hematuria. 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 Has failed void trials previously Also has a history of kidney stones that may lead to intermittent episodes of hematuria. Plan: -Continue espinosa -Continue flomax 0.8 mg daily Assessment & Plan (05/27/2025 8:27 AM CDT): With chronic espinosa in place. Has failed void trials previously Also has a history of kidney stones that may lead to intermittent episodes of hematuria. Plan: Continue espinosa Continue flomax 0.8 mg daily Assessment & Plan (05/26/2025 10:52 AM CDT): With chronic espinosa in place. Has failed void trials previously Also has a history of kidney stones that may lead to intermittent episodes of hematuria. 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 Has failed void trials previously Also has a history of kidney stones that may lead to intermittent episodes of hematuria. - Continue espinosa - Continue flomax 0.8 mg daily Assessment & Plan (04/28/2025 7:44 AM CDT): Espinosa placed last week due to urinary retention. - Continue flomax 0.8mg daily - Will need void trial at [facility] and recommended outpatient urology follow up. Assessment & Plan (04/27/2025 1:05 PM CDT): Espinosa placed last week due to urinary retention. - Continue flomax 0.8mg daily - Will need void trial at [facility] and recommended outpatient urology follow up. Assessment & Plan (04/26/2025 7:13 AM CDT): Espinosa placed last week due to urinary retention. Noted - Continue flomax 0.8mg daily Assessment & Plan (04/25/2025 7:31 AM CDT): Espinosa placed last week due to urinary retention. Noted - Continue flomax 0.8mg daily Assessment & Plan (04/24/2025 7:32 AM CDT): Espinosa placed last week due to urinary retention. Noted - Continue flomax 0.8mg daily Assessment & Plan (04/23/2025 7:17 AM CDT): Espinosa placed last week due to urinary retention. Noted - Continue flomax 0.8mg daily Assessment & Plan (04/22/2025 7:23 AM CDT): Espinosa placed last week due to urinary retention. Noted - Continue flomax 0.8mg daily Assessment & Plan (04/21/2025 7:28 AM CDT): Espinosa placed last week due to urinary retention. Noted - Continue flomax 0.8mg daily Assessment & Plan (04/20/2025 7:21 AM CDT): Espinosa placed last week due to urinary retention. Noted - Continue flomax 0.8mg daily Assessment & Plan (04/19/2025 10:38 AM CDT): Espinosa placed last week due to urinary retention. Noted - Continue flomax 0.8mg daily Assessment & Plan (04/18/2025 10:37 AM CDT): Espinosa placed last week due to urinary retention. Noted - Continue flomax 0.8mg daily Assessment & Plan (04/17/2025 10:17 AM CDT): Espinosa placed last week due to urinary retention. Noted - Continue flomax 0.8mg daily Assessment & Plan (04/16/2025 9:52 AM CDT): Espinosa placed last week due to urinary retention. Noted - Continue flomax 0.8mg daily Assessment & Plan (04/15/2025 11:39 AM CDT): Espinosa placed last week due to urinary retention. Noted - Continue flomax 0.8mg daily Assessment & Plan (04/14/2025 10:29 AM CDT): Espinosa placed last week due to urinary retention. Noted - Continue flomax 0.8mg daily Assessment & Plan (04/13/2025 2:27 PM CDT): Espinosa placed last week due to urinary retention - increase flomax to 0.8mg daily Assessment & Plan (04/12/2025 8:28 PM CDT): Espinosa placed last week due to urinary retention - increase flomax to 0.8mg daily Assessment & Plan (04/11/2025 7:59 PM CDT): Espinosa placed last week due to urinary retention - increase flomax to 0.8mg daily Assessment & Plan (04/10/2025 6:47 PM CDT): Espinosa placed last week due to urinary retention - increase flomax to 0.8mg daily - consider void trial when on floor Assessment & Plan (04/09/2025 8:57 PM CDT): Espinosa placed last week due to urinary retention - increase flomax to 0.8mg daily - consider void trial when on floor Assessment & Plan (04/08/2025 8:17 PM CDT): Espinosa placed last week due to urinary retention - increase flomax to 0.8mg daily - consider void trial when on floor Assessment & Plan (04/07/2025 5:48 AM CDT): Espinosa placed last week due to urinary retention - increase flomax to 0.8mg daily - consider void trial when on floor Current Treatment and Therapy Plans Atezolizumab / CARBOplatin / Etoposide 21 Day Cycles - Small Cell Lung* Plan Start Date:04/12/2025 Plan Provider:Andree Rawls MD Linked Problems Prophylaxis for chemotherapy -induced neutropeniaMalignant neoplasm metastatic to bone (HCC)Small cell carcinoma of lung, unspecified laterality, unspecified part of lung (HCC) Treatment Medications Current Day (Day 1 , Cycle 6 - Planned for 08/24/2025) Next Day (Day 1, Cycle 7 - Planned for 09/14/2025) atezolizumab (TECENTRIQ)atezolizumab (TECENTRIQ) IVPBCARBOplatin (PARAPLATIN)CARBOplatin (PARAPLATIN) IVPB in 250 mLdexAMETHasone (DECADRON)etoposide (TOPOSAR)etoposide (VEPESID) IVPB in 500 mL atezolizumab (TECENTRIQ) 1,200 mg in sodium chloride 0.9% 250 mL IVPB atezolizumab (TECENTRIQ) 1,200 mg in sodium chloride 0.9% 250 mL IVPB DARBEPOETIN (ARANESP) INJECTION EVERY 3 WEEKS* Plan Start Date:07/13/2025 Plan Provider:Cheng Farnco MD Linked Problems Anemia due to chemotherapySm all cell carcinoma of lung, unspecified laterality, unspecified part of lung (HCC) Treatment Medications No medications scheduled. IV Maintenance Therapy Plan* Plan Start Date:05/31/2025 Plan Provider:Cheng Franco MD Linked Problems Malignant neoplasm metastati c to bone (HCC) Treatment Medications No medications scheduled. Past Treatment and Therapy Plans No past plan information found. Lifetime Dose Tracking * Chemical Lifetime Dose Automatic Entry Manual Entr y Fluoro Time 8.7 minutes 8.7 minutes 0 minutes etoposide 1,026.69 mg/m2 (1,73 4 mg) 1,026.69 mg/m2 (1,734 mg) 0 mg/m2 (0 mg) Air kerma at the reference point (Ka,r) 16.2 mGy 16.2 mGy 0 mGy DLP 1,370 mGycm 1,370 mGycm 0 mGycm Resolved Problems Problem Noted Date Diagnosed Date Resolved Date Elevated BP without diagnosis of hypertension 05/25/20 25 05/26/2025 Assessment & Plan (05/26/2025 10:52 AM CDT): Previously prescribed losartan during recent admission at OSH. BP mildly elevated on admission but unclear if patient has history of HTN and patient at risk of becoming hypotensive.discontinued on admission to [facility] Assessment & Plan (05/25/2025 8:53 PM CDT): Previously prescribed losartan during recent admission at OSH. BP mildly elevated here but unclear if patient has history of HTN and patient at risk of becoming hypotensive. Will d/c
--- OUTSIDE RECORDS SUMMARY | 2025-08-08 11:47 | XMS_ITS | Encounter Summary ---
Author Organization [facility] [place] Address [address] [place] [address] Phone Care Team Providers Care Clinical Program Director Name Role Phone Carmen Artis Primary Care Provider [phone] Cheng Franco MD Unavailable Yuval Licona MD Unavailable Encounter Details Date Type Department Care Team (Late st Contact Info) Description 08/06/2025 Telephone [facility] Medicine Oncology [address] [place] [phone] Nadege Burr RN Social History Tobacco Use Types Packs/Day Years [...] week 04/14/2025 How often do you attend [facility] or latter-day services? 1 to 4 times per year 04/14/2025 Do you belong to any clubs o r organizations such as shinto groups, unions, fraternal or athletic groups, or [...] any time in the past 12 [facility], were you homeless or living in a snf (including now)? No 04/14/2025 Social Connection and Isolation Panel Answer Date Recorded In a typical week, how many times do you talk on the phone with family, friends, or neighbors? More than three times a week 05/26/2025 How often do you get togethe r with friends or relatives? More than three times a week 05/26/2025 How often do you attend chur ch or latter-day services? 1 to 4 times per year 05/26/2025 Do you belong to any clubs o r organizations such as shinto groups, unions, fraternal or athletic groups, or [...] any time in the past 12 [facility], were you homeless or living in a snf (including now)? No 05/26/2025 [facility] Utilities Answer Date Recorded In the [...] on file documented as of this encounter Miscellaneous Notes * Telephone Encounter - Nadege Burr RN - 08/06/2025 2:03 PM CST Zurdo called to let us know that she took her dad to the local hospital for a distended belly. [employer] documented in this encounter Plan of Treatment Not on file documented as of this encounter Visit Diagnoses Not on filedocumented in this encounter Care Teams Clinical Program Director Relationship Specialty Start Date End Date Carmen Artis [address] [place] [address] PCP - General Family Medicine 03/09/25 Cheng Franco MD [address] [place] [address] Medical Oncologist/Psychology Clinician Medical Oncology 04/05/25 Yuval Licona MD [address] [facility] [address] [place] [address] Referring Physician Thoracic Surgery 04/05/25 documented as of this encounter
--- OUTSIDE RECORDS SUMMARY | 2025-08-08 11:47 | XMS_ITS | Clinical Summary ---
Author Organization [facility] Address [address] [place] [address] Care Team Providers Care Cuffer Name Role Phone Carmen Artis Primary Care Provider [phone] Cheng Franco MD Unavailable [phone] Yuval Licona MD Unavailable Allergies Active Allergy Reactions Criticality Noted Date Comments Budesonide Other (See comments) 04/05/2025 flush Medications ALPRAZolam (XANAX) 0.5 mg tablet Take 1 tablet (0.5 mg total) by mouth every 6 (six) hours as needed for anxiety 025 Active clopidogreL (PLAVIX) 75 mg tablet Take by mouth 025 Active guaiFENesin ER (Mucinex) 600 mg 12 hr tablet Take 2 tablets (1,200 mg total) by mouth 2 (two) times a day 025 Active furosemide (LASIX) 40 mg tablet Take 1 tablet (40 mg total) by mouth daily Active cholecalcifero l, vitD3,/vit K2 (VITAMIN D3-VITAMIN K2 ORAL) Take 1 tablet by mouth daily Active tamsulosin (FLOMAX) 0.4 mg extended release capsule Take 2 capsules (0.8 mg total) by mouth daily with dinner Active multivit minerals-iron- FA-calcium (THERA-M) 9 mg iron-400 mcg tablet Take 1 tablet by mouth daily Active losartan (COZAAR) 25 mg tablet Take 1 tablet (25 mg total) by mouth daily Active naloxone (NARCAN) 4 mg/actuation spray,non-aero oscar EMERGENCY USE ONLY: Administer 1 spray (4 mg) in one nostril one time. May repeat in alternating nostrils every 2-3 min until responsive or EMS arrives. Active benzonatate (TESSALON) 200 mg capsule TAKE 1 CAPSULE BY MOUTH THREE TIMES DAILY NEEDED FOR COUGH Active lidocaine (LIDODERM) 5 % USE 1 PATCH EXTERNALLY IN THE MORNING (REMOVE OLD PATCH AND DISCARD WITHIN 12 HOURS OR DIRECTED) Active polyethylene glycol (MIRALAX) 17 gram/dose bulk powder Take 17 g by mouth daily 025 2025 Active senna-docusate (PERICOLACE) 8.6-50 mg Take 2 tablets by mouth 2 (two) times a day 120 tablet 1 Active traZODone (DESYREL) 50 mg tablet Take 1 tablet (50 mg total) by mouth nightly 30 tablet Active prochlorperazi ne (Compazine) 10 mg tabletIndicati ons:Small cell carcinoma of lung, unspecified laterality, unspecified part of lung (HCC),Malignan t neoplasm metastatic to bone (HCC),Prophyla xis for chemotherapy-i nduced neutropenia Take 1 tablet (10 mg total) by mouth every 6 (six) hours as needed for nausea or vomiting Use first for nausea 60 tablet 3 Active ondansetron (ZOFRAN) 8 mg tabletIndicati ons:Small cell carcinoma of lung, unspecified laterality, unspecified part of lung (HCC),Malignan t neoplasm metastatic to bone (HCC),Prophyla xis for chemotherapy-i nduced neutropenia Take 1 tablet (8 mg total) by mouth every 8 (eight) hours as needed for nausea or vomiting Use if prochlorperazine does not stop nausea. 24 tablet 3 09/30/2 025 Active LORazepam (ATIVAN) 0.5 mg tablet Take 1 tablet po 30 minutes prior to MRI, repeat x1 PRN 2 tablet Active ipratropium-al buteroL (DUO-NEB) 0.5-2.5 mg/3 mL nebulizer solution Active melatonin 1 mg tablet,chewabl e Take 1 mg by mouth nightly as needed Active mirtazapine (REMERON) 15 mg tablet Take 1 tablet (15 mg total) by mouth nightly Active atorvastatin (LIPITOR) 80 mg tablet Take 1 tablet (80 mg total) by mouth daily 024 2024 Discontinued(P atient Reported) mirtazapine (REMERON) 7.5 mg tablet Take 1 tablet (7.5 mg total) by mouth nightly 30 tablet 2024 Discontinued(P atient Reported) atorvastatin (LIPITOR) 20 mg tablet TAKE 1 TABLET BY MOUTH DAILY AT NIGHT 2024 Discontinued Active Problems Problem Noted Date Diagnosed Date Lesion of nose 07/13/2025 Leukocytosis 05/26/2025 Assessment & Plan (05/30/2025 7:21 AM CDT): Likely in setting of prednisone. Last neulasta in end march. Now downtrending Assessment & Plan (05/29/2025 [...] mets. Plan -Consult rad onc- outpatient evaluation -[place] q4 h prn -Oncology started carbo/etopo chemotherapy [...] mets. Plan -Consult rad onc- outpatient evaluation -[place] q[place] h prn -Oncology started carbo/etopo chemotherapy [...] mets. Plan -Consult rad onc- outpatient evaluation -[place] q[place] h prn -Oncology started carbo/etopo chemotherapy [...] for progressing/new mets. Plan Consult rad onc [place] q4 h prn Oncology to start carbo/etopo [...] mets. Plan -Consult rad onc- outpatient evaluation -[place] q[place] h prn -Oncology started carbo/etopo chemotherapy [...] mets. Plan -Consult rad onc- outpatient evaluation -[place] q[place] h prn -Oncology started carbo/etopo chemotherapy [...] mets. Plan -Consult rad onc- outpatient evaluation -[place] q[place] h prn -Oncology started carbo/etopo chemotherapy [...] for progressing/new mets. Plan Consult rad onc [place] q4 h prn Oncology to start carbo/etopo [...] repeat MRI in 1 month. Plan: bMRI [place] q4 h prn Assessment & Plan (05/25/2025 [...] 6.6 s/p 1 PRBC , transfused on 8 1 unit for optimization. Assessment & Plan [...] 6.6 s/p 1 PRBC , transfused on 04/27 1 unit for optimization. Assessment & Plan (04/27/2025 1:03 PM CDT): -Prior to chemo hgb 10-11 -Hgb 11/28/24 was 6.6 s/p 1 PRBC , transfused on 04/27 1 unit for optimization. Assessment & Plan [...] and currently on antibiotics. Evaluated previously by INSPECTOR BOILER who noted abnormal swallowing during last admission. Family noted possible repeat aspiration event last night. Will continue previously prescribed abx to complete 1 week course. INSPECTOR BOILER performed MBS which patient passed and is on regular diet. Plan: -Completed course of clindamycin 300 mg TID and doxycyline 100 BID Assessment & Plan (05/29/2025 7:14 AM CDT): Has had multiple episodes of aspiration pneumonia over the last month and currently on antibiotics. Evaluated previously by INSPECTOR BOILER who noted abnormal swallowing during last admission. Family noted possible repeat aspiration event last night. Will continue previously prescribed abx to complete 1 week course. INSPECTOR BOILER performed MBS which patient passed and is on regular diet. Plan: -Completed course of clindamycin 300 mg TID and doxycyline 100 BID Assessment & Plan (05/28/2025 11:53 AM CDT): Has had multiple episodes of aspiration pneumonia over the last month and currently on antibiotics. Evaluated previously by INSPECTOR BOILER who noted abnormal swallowing during last admission. Family noted possible repeat aspiration event last night. Will continue previously prescribed abx to complete 1 week course. INSPECTOR BOILER performed MBS which patient passed and is on regular diet. Plan: -Completed course of clindamycin 300 mg TID and doxycyline 100 BID Assessment & Plan (05/27/2025 1:09 PM CDT): Has had multiple episodes of aspiration pneumonia over the last month and currently on antibiotics. Evaluated previously by INSPECTOR BOILER who noted abnormal swallowing during last admission. Family noted possible repeat aspiration event last night. Will continue previously prescribed abx to complete 1 week course. INSPECTOR BOILER performed MBS which patient passed and is on regular diet. Plan: Completed course of clindamycin 300 mg TID and doxycyline 100 BID Assessment & Plan (05/26/2025 10:52 AM CDT): Has had multiple episodes of aspiration pneumonia over the last month and currently on antibiotics. Evaluated previously by INSPECTOR BOILER who noted abnormal swallowing during last admission. Family noted possible repeat aspiration event last night. Will continue previously prescribed abx to complete 1 week course and consult INSPECTOR BOILER Plan: INSPECT[employer]ILER Continue clindamycin 300 mg TID, doxycyline 100 BID x1 day Assessment & Plan (05/25/2025 8:53 PM CDT): Has had multiple episodes of aspiration pneumonia over the last month and currently on antibiotics. Evaluated previously by INSPECTOR BOILER who noted abnormal swallowing during last admission. Family noted possible repeat aspiration event last night. Will continue previously prescribed abx to complete 1 week course and consult INSPECTOR BOILER - INSPECTOR [employer]ILER - Continue clindamycin 300 mg TID, doxycyline 100 BID x1 day Assessment & Plan (04/28/2025 7:44 AM CDT): Seen on CT A/P on 04/12 with worsening consolidations compared to previous CT. Started on abx for empiric treatment. - S/p Ceftriaxone (04/12 - 04/17), azithromycin (04/12 - 04/14) - INSPECTOR BOILER recd post modified barium swallow on 04/21 - Reg diet, pills crushed in puree Assessment & Plan (04/27/2025 1:03 PM CDT): Seen on CT A/P on 04/12 with worsening consolidations compared to previous CT. Started on abx for empiric treatment. - S/p Ceftriaxone (04/12 - 04/17), azithromycin (04/12 - 04/14) - INSPECTOR BOILER recd post modified barium swallow on 04/21 - Reg diet, pills crushed in puree Assessment & Plan (04/26/2025 7:13 AM CDT): Seen on CT A/P on 04/12 with worsening consolidations compared to previous CT. Started on abx for empiric treatment. - S/p Ceftriaxone (04/12 - 04/17), azithromycin (04/12 - 04/14) - INSPECTOR BOILER recd post modified barium swallow on 04/21 - Reg diet, pills crushed in puree Assessment & Plan (04/25/2025 9:23 AM CDT): Seen on CT A/P on 04/12 with worsening consolidations compared to previous CT. Started on abx for empiric treatment. - S/p Ceftriaxone (04/12 - 04/17), azithromycin (04/12 - 04/14) - INSPECTOR BO[employer]ER recd post modified barium swallow on 04/21 [...] LAMA/LABA, albuterol prn -Suctioning q4, [facility] - [place] [facility] consult , awaiting pathology Assessment & [...] LAMA/LABA, albuterol prn -Suctioning q4, [facility] - [place] [facility] consult , awaiting pathology Assessment & [...] LAMA/LABA, albuterol prn -Suctioning q4, [facility] - [place] [facility] consult , awaiting pathology Assessment & [...] DuoNebs p.r.n., start LAMA/LABA, albuterol prn - [place] [facility] consult Assessment & Plan (04/08/2025 8:17 [...] DuoNebs p.r.n., start LAMA/LABA, albuterol prn - [place] [facility] consult Assessment & Plan (04/07/2025 5:48 [...] able - DuoNebs p.r.n., start LAMA/LABA - [place] [facility] consult on arrived floor Urinary retention [...] 7:23 AM CDT): S/p stenting in 2018 continue statin, plavix Assessment & Plan (04/21/2025 7:28 AM CDT): S/p stenting in 2018 - continue statin, plavix Assessment & Plan (04/20/2025 7:21 AM CDT): S/p stenting in 2018 continue statin, plavix Assessment & Plan (04/19/2025 10:38 AM CDT): S/p stenting in 2018 statin, plavix Assessment & Plan (04/18/2025 10:37 AM CDT): S/p stenting in 2018 statin, plavix Assessment & Plan (04/17/2025 10:17 AM CDT): S/p stenting in 2018 statin, plavix Assessment & Plan (04/16/2025 9:52 AM CDT): S/p stenting in 2018 statin, plavix Assessment & Plan (04/15/2025 11:39 [...] (04/12/2025 8:28 PM CDT): S/p stenting in 2018 - [...] LAMA/LABA, albuterol prn -Suctioning q4, [facility] - [place] [facility] consult , awaiting pathology Assessment & [...] p.r.n., start LAMA/LABA, albuterol prn -Suctioning q4, [facility] oncology consult , awaiting pathology Assessment & [...] p.r.n., start LAMA/LABA, albuterol prn -Suctioning q4, [facility] - [place] [facility] consult , awaiting pathology Assessment & [...] DuoNebs p.r.n., start LAMA/LABA, albuterol prn - [place] [facility] consult Assessment & Plan (04/08/2025 8:17 [...] DuoNebs p.r.n., start LAMA/LABA, albuterol prn - [place] [facility] consult Assessment & Plan (04/07/2025 5:48 [...] able - DuoNebs p.r.n., start LAMA/LABA - [place] [facility] consult on arrived floor Malignant neoplasm [...] LAMA/LABA, albuterol prn -Suctioning q4, [facility] - [place] [facility] consult , awaiting pathology Assessment & [...] LAMA/LABA, albuterol prn -Suctioning q4, [facility] - [place] [facility] consult , awaiting pathology Assessment & [...] LAMA/LABA, albuterol prn -Suctioning q4, [facility] - [place] [facility] consult , awaiting pathology Assessment & [...] DuoNebs p.r.n., start LAMA/LABA, albuterol prn - [place] [facility] consult Assessment & Plan (04/08/2025 8:17 [...] DuoNebs p.r.n., start LAMA/LABA, albuterol prn - [place] [facility] consult Assessment & Plan (04/07/2025 5:48 [...] able - DuoNebs p.r.n., start LAMA/LABA - [place] [facility] consult on arrived floor BPH (benign [...] - consider void trial when on floor Resolved Problems Problem Noted Date Diagnosed Date Resolved Date Elevated BP without diagnosis of hypertension 05/25/2005/26/2025 Assessment & Plan (05/26/2025 10:52 AM CDT): Previously prescribed losartan during recent admission at OSH. BP mildly elevated on admission but unclear if patient has history of HTN and patient at risk of becoming hypotensive.discontinued on admission to [facility] Assessment & Plan (05/25/2025 8:53 PM CDT): Previously prescribed losartan during recent admission at OSH. BP mildly elevated here but unclear if patient has history of HTN and patient at risk of becoming hypotensive. Will d/c Encounters Date Type Department Care Team Description 08/06/2025 Telephone [facility] Medicine Oncology [address] [facility] [address] [place] [phone] Nadege Burr, RN 08/06/[address] 1st [place] [address] Callie Niño 08/03/2025 2:30 PM CAPACITOR PACK PRESS OPERATOR Infusion [facility] - Infusion [address] [place] [address] Floor 5 [place] [address] Small cell carcinoma of lung, unspecified laterality, unspecified part of lung (HCC) (Primary Dx); Prophylaxis for chemotherapy-induce d neutropenia; Malignant neoplasm metastatic to bone (HCC) 08/03/2025 1:40 PM CAPACITOR PACK PRESS OPERATOR Office Visit [facility] [place] [place] [facility] [address] [place] [address] 5 [place] [address] Cheng Franco MD Small cell lung cancer in adult (HCC) (Primary Dx); 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); Prophylaxis for chemotherapy-induce d neutropenia; Malignant neoplasm metastatic to bone (HCC); Small cell carcinoma of lung, unspecified laterality, unspecified part of lung (HCC) 08/03/2025 12:45 PM CAPACITOR PACK PRESS OPERATOR Lab [facility] - Lab Collection [address] [place] [address] 5 [place] [address] Prophylaxis for chemotherapy-induce d neutropenia; Malignant neoplasm metastatic to bone (HCC); Small cell carcinoma of lung, unspecified laterality, unspecified part of lung (HCC) 08/03/2025 Orders Only [facility] [place] [place] [facility] [address] [place] [address] 5 [place] [address] Nadege Burr, RN 07/22/2025 Orders Only [facility] [place] [place] [facility] [address] [place] [address] [address] [place] [phone] Nadege Burr, RN 07/22/2025 Telephone [facility] [place] [place] [facility] [address] [place] [address] [address] [place] [phone] Nadege Burr, RN 07/15/2025 4:00 PM CDT Infusion [facility] - Infusion [address] [place] [address] Floor 6 [place] [address] Malignant neoplasm metastatic to bone (HCC) (Primary Dx); Prophylaxis for chemotherapy-induce d neutropenia; Small cell carcinoma of lung, unspecified laterality, unspecified part of lung (HCC) 07/14/2025 4:45 PM CDT Lab [facility] - Lab Collection [facility] [address] 5 [place] [address] Small cell lung cancer in adult (HCC); Anemia due to chemotherapy 07/14/2025 3:00 PM CDT Infusion [facility] - Infusion [address] [facility] Floor 5 [place] [address] Small cell carcinoma of lung, unspecified laterality, unspecified part of lung (HCC) (Primary Dx); Prophylaxis for chemotherapy-induce d neutropenia; Malignant neoplasm metastatic to bone (HCC) 07/14/2025 Orders Only [facility] [place] [place] [facility] [address] [place] [address] Floor 5 [place] [address] Demetra Savage NP Anemia due to chemotherapy (Primary Dx) 07/14/2025 Orders Only [facility] [place] [place] [facility] [address] [place] [address] [address] [place] [address] Cheng Franco MD Small cell lung cancer in adult (HCC) (Primary Dx) 07/13/2025 10:30 AM CDT Infusion [facility] - Infusion [facility] [address] 6 [place] [address] Small cell carcinoma of lung, unspecified laterality, unspecified part of lung (HCC) (Primary Dx); Prophylaxis for chemotherapy-induce d neutropenia; Malignant neoplasm metastatic to bone (HCC) 07/13/2025 9:20 AM CDT Office Visit [facility] [place] [place] [facility] [address] [place] [address] Floor 5 [place] [address] Cheng Franco MD 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) (Primary Dx); Small cell carcinoma of lung, unspecified laterality, unspecified part of lung (HCC); 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); Prophylaxis for chemotherapy-induce d neutropenia; Malignant neoplasm metastatic to bone (HCC); Lesion of nose; Anemia due to chemotherapy; Hyponatremia 07/13/2025 8:30 AM CDT Lab [facility] - Lab Collection [facility] Floor 6 [place] [address] Prophylaxis for chemotherapy-induce d neutropenia; Malignant neoplasm metastatic to bone (HCC); Small cell carcinoma of lung, unspecified laterality, unspecified part of lung (HCC) 07/13/2025 7:02 AM CDT - 07/13/2025 11:59 PM CDT Hospital Encounter [facility] - CT [address] [facility] [address] 8 [place] [address] 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 07/02/2025 Telephone [facility] [address] [place] [address] [address] [place] [phone] Nadege Burr RN 07/02/2025 Orders Only [facility] [address] [place] [address] [address] [place] [phone] Nadege Burr, RN 07/02/2025 Telephone [facility] [address] [place] [address] [address] [place] [phone] Hermila Melchor CMA Treatment question 06/24/2025 3:00 PM CDT Infusion [facility] - Infusion [address] [facility] [address] 5 [place] [address] Small cell carcinoma of lung, unspecified laterality, unspecified part of lung (HCC) (Primary Dx); Prophylaxis for chemotherapy-induce d neutropenia; Malignant neoplasm metastatic to bone (HCC) 06/23/2025 3:00 PM CDT Infusion [facility] - Infusion [address] [facility] [address] 5 [place] [address] Malignant neoplasm metastatic to bone (HCC) (Primary Dx); Prophylaxis for chemotherapy-induce d neutropenia; Small cell carcinoma of lung, unspecified laterality, unspecified part of lung (HCC) 06/22/2025 3:00 PM CDT Infusion [facility] - Infusion [facility] Floor 6 [place] [address] Malignant neoplasm metastatic to bone (HCC) (Primary Dx); Prophylaxis for chemotherapy-induce d neutropenia; Small cell carcinoma of lung, unspecified laterality, unspecified part of lung (HCC) 06/22/2025 2:00 PM CDT Office Visit [facility] [place] [place] [facility] [address] [place] [address] Floor 5 [place] [address] Demetra Savage, HILDA 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) (Primary Dx); Small cell carcinoma of lung, unspecified laterality, unspecified part of lung (HCC); Malignant neoplasm metastatic to bone (HCC); Prophylaxis for chemotherapy-induce d neutropenia; Hyperkalemia 06/22/2025 1:00 PM CDT Lab [facility] - Lab Collection [address] [place] [address] Floor 5 [place] [address] Prophylaxis for chemotherapy-induce d neutropenia; Malignant neoplasm metastatic to bone (HCC); Small cell carcinoma of lung, unspecified laterality, unspecified part of lung (HCC); 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); Hyperkalemia 06/14/2025 Telephone [facility] [place] [place] [facility] [address] [place] [address] [address] [place] [address] Nadege Burr RN 06/14/2025 Telephone [facility] [place] [place] [facility] [address] [place] [address] [address] [place] [address] Nadege Burr RN 05/31/2025 10:15 AM CDT Lab [facility] - Lab Collection [address] [place] [address] Floor 5 [place] [address] 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); Anemia associated with chemotherapy; Hyperkalemia 05/31/2025 8:00 AM CDT Infusion [facility] - Infusion [address] [place], [place] [address] Floor 5 [place] [address] Malignant neoplasm metastatic to bone (HCC) (Primary Dx); Prophylaxis for chemotherapy-induce d neutropenia; Small cell carcinoma of lung, unspecified laterality, unspecified part of lung (HCC) 05/31/2025 Orders Only [facility] Medicine Oncology [address] [facility] [address] [place] [address] Nadege Burr, RN 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) (Primary Dx); Anemia associated with chemotherapy; Hyperkalemia 05/31/2025 Orders Only [facility] [place] [place] [facility] [address] [facility] [address] 5 [place] [address] Cheng Franco MD 05/28/2025 Orders Only [facility] Medicine Oncology [address] [place] [address] [address] [place] [address] Nadege Burr, RN Malignant neoplasm metastatic to bone (HCC) (Primary Dx); Prophylaxis for chemotherapy-induce d neutropenia; Small cell carcinoma of lung, unspecified laterality, unspecified part of lung (HCC) 05/27/2025 11:10 AM CDT Clinical Support [address] Advanced [address] [address] Gianna Callaway, PhD Depression, unspecified depression type 05/25/2025 6:22 PM CDT - 05/30/2025 2:30 PM CDT Hospital Encounter [address] [address] Cheng Franco MD Tabagari, David, MD Daniel, Edward, MD PhD Small cell carcinoma of lung, unspecified laterality, unspecified part of lung (HCC) (Primary Dx); Prophylaxis for chemotherapy-induce d neutropenia; Malignant neoplasm metastatic to bone (HCC); Malignant neoplasm metastatic to liver (HCC) Discharge Disposition: Discharge to home, home health skilled care 05/25/2025 11:45 AM CDT Clinical Support [facility] - Lab Collection [address] [facility] [address] 5 [place] [address] 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); 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); Hyperkalemia 05/25/2025 11:12 AM CDT - 05/25/2025 11:59 PM CDT Hospital Encounter [facility] [address] [place] [id number] Diagnosis unknown Discharge Disposition: Discharge to home or self care 05/25/2025 10:40 AM CDT Office Visit [facility] Medicine Oncology [address] [place] [address] 5 [place] [address] Cheng Franco MD 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) (Primary Dx); 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); Malignant neoplasm metastatic to bone (HCC); Prophylaxis for chemotherapy-induce d neutropenia; Small cell carcinoma of lung, unspecified laterality, unspecified part of lung (HCC); Hyperkalemia; Depression, unspecified depression type 05/25/2025 10:00 AM CDT Lab [facility] - Lab Collection [address] [place] [address] 5 [place] [address] Prophylaxis for chemotherapy-induce d neutropenia; Malignant neoplasm metastatic to bone (HCC); Small cell carcinoma of lung, unspecified laterality, unspecified part of lung (HCC) 05/25/2025 9:45 AM CDT Lab [facility] Medicine Oncology Lab [address] [place] [address] 5 [place] [address] Prophylaxis for chemotherapy-induce d neutropenia; Malignant neoplasm metastatic to bone (HCC); Small cell carcinoma of lung, unspecified laterality, unspecified part of lung (HCC) 05/25/2025 Telephone [facility] Bed Planning 1 [place] [address] Rufino Sanchez, SHALOM 05/25/2025 Telephone [facility] [place] [place] [facility] [address] [place] [address] 5 [place] [address] Nadege Burr, RN 05/25/2025 Documentation [facility] [place] [place] [facility] [address] [place] [address] [address] Z[place] Miranda [id number] Judith Berman LCSW 05/20/2025 Telephone [facility] [place] [place] [facility] [address] [place] [address] [address] [place] [id number] Nadege Burr, RN 05/19/2025 Telephone [facility] [place] [place] [facility] [address] [place] [address] 6 [place] [address] Shelbie Longo NP 05/18/2025 Orders Only [facility] Medicine Oncology [address] 5 [place] [id number] Cheng Franco MD 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) (Primary Dx); Malignant neoplasm metastatic to bone (HCC); Malignant neoplasm metastatic to liver (HCC); Unsteady gait; COPD exacerbation (HCC); Shortness of breath; At risk for fall due to comorbid condition 05/18/2025 Telephone [facility] Home Care Services [address] [place] [address] Unknown, Notinfile 05/14/2025 2:00 PM CDT Office Visit [facility] [place] [place] [facility] [address] [place] [address] [address] [place] [address] Cheng Franco MD Prophylaxis for chemotherapy-induce d neutropenia (Primary Dx); 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); Malignant neoplasm metastatic to bone (HCC); Malignant neoplasm metastatic to liver (HCC); Small cell carcinoma of lung, unspecified laterality, unspecified part of lung (HCC); Pancytopenia due to chemotherapy; Elevated LFTs 05/14/2025 1:15 PM CDT Lab [facility] at [address] [place] [address] 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); Malignant neoplasm metastatic to bone (HCC); Malignant neoplasm metastatic to liver (HCC) 05/14/2025 Telephone [facility] at [address] [place] [address] Sade Nava, SHALOM 05/13/2025 Telephone [facility] [place] [place] [facility] [address] [place] [address] 100 [place] [address] Nadege Burr RN 05/13/2025 Orders Only [facility] [place] [place] [facility] [address] [place] [address] 100 [place] [address] Nadege Burr RN 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) (Primary Dx); Malignant neoplasm metastatic to bone (HCC); Malignant neoplasm metastatic to liver (HCC) from Last 3 Months Immunizations Immunization Administration Dates Next Due Influenza, Quadrivalent, Hig h Dose, Preservative Free, Intrr 10/02/2022 Influenza, Quadrivalent, Spl it, Preservative Free, Intramuscular 08/04/2020 Pneumococcal Conjugate PCV 13 11/18/2018 Pneumococcal Polysaccharide PPV23 10/02/2022 Surgical History Surgery Date Site/Laterality Comments PERCUTANEOUS PLACEMENT INTRA VASCULAR STENT CERVICAL CAROTID ARTERY US GUIDED BIOPSY LIVER 04/09/2025 N/A Medical History Medical History Date Comments GERD (gastroesophageal reflux disease) COPD (chronic obstructive pulmonary disease) History of stroke Anxiety BPH (benign prostatic hyperplasia) Constipation New onset past 2 -3 months. Family History Medical History Relation Name Comments Alcohol abuse Brother 1 Febrile seizures Brother 2 No Known Problems Daughter 1 No Known Problems Daughter 2 Metastatic cancer Father Breast cancer Mother No Known Problems Sister 1 No Known Problems Sister 2 Schwannoma Son 1 in police custody Son 2 Hypertension Son 3 Relation Name Status Comments Brother 1 Brother 2 Daughter 1 Alive Daughter 2 Alive Father Mother Sister 1 Alive Sister 2 Alive Son 1 Alive Son 2 Son 3 Alive Social History Tobacco Use Types Packs/Day Years Used Date Smoking Tobacco: Former Cigarettes Q uit: 02/2025 Smokeless Tobacco: Never Tobacco Cessation:Counseling Given: Not Answered Social Connection and Isolation Panel Answer Date Recorded In a typical week, how many times do you talk on the phone with family, friends, or neighbors? More than three times a week 04/14/2025 How often do you get togethe r with friends or relatives? More than three times a week 04/14/2025 How often do you attend chur or uatsdin services? 1 to 4 times per year 04/14/2025 Do you belong to any clubs o r organizations such as jain groups, unions, fraternal or athletic groups, or [...] any time in the past 12 [facility], were you homeless or living in a mcc (including now)? No 04/14/2025 Social Connection and Isolation Panel Answer Date Recorded In a typical week, how many times do you talk on the phone with family, friends, or neighbors? More than three times a week 05/26/2025 How often do you get togethe r with friends or relatives? More than three times a week 05/26/2025 How often do you attend chur ch or uatsdin services? 1 to 4 times per year 05/26/2025 Do you belong to any clubs o r organizations such as jain groups, unions, fraternal or athletic groups, or [...] any time in the past 12 m [facility], were you homeless or living in a mcc (including now)? No 05/26/2025 [facility] Utilities Answer Date Recorded In the [...] Comments Blood Pressure 122/71 08/03/2025 1:19 PM CAPACITOR PACK PRESS OPERATOR Pulse 100 08/03/2025 1:19 PM CAPACITOR PACK PRESS OPERATOR Temperature 36.4 C (97.5 F) 08/03/2025 1:19 PM CAPACITOR PACK PRESS OPERATOR Respiratory Rate 19 08/03/2025 1:19 PM CAPACITOR PACK PRESS OPERATOR Oxygen Saturation 96% 08/03/2025 1:19 PM CAPACITOR PACK PRESS OPERATOR Inhaled Oxygen Concentration - - Weight 53.1 kg (117 lb) 08/03/2025 1:19 PM CAPACITOR PACK PRESS OPERATOR Height 182.9 cm (6') 04/07/2025 7:21 PM CDT Body Mass Index 15.87 04/07/2025 7:21 PM CDT Plan of Treatment Health Maintenance Due Date Last Done Comments Hepatitis C Screening 1950 DTaP/Tdap/Td Vaccine (1 - Tdap) 01/13/1959 Hepatitis B Screening 01/13/1966 Zoster Vaccine (1 of 2) 01/13/1967 Well Visit 65+ 01/13/2013 Influenza Vaccine (#1) 2025 10/02/2022, 2019 Depression Screening 04/06/2026 04/06/2025 Fall Risk Assessment 05/30/2026 05/30/2025 Pneumococcal vaccine 65+ Completed 10/02/2022, 10/25 Medical Devices Implanted Type Area Hospital Medicine Director Device Identifier Shelf Expiration Date Model / Serial / Lot Rt Carotid Artery Carotid Procedures Procedure Name Priority Date/Time Associated Diagnosis Comments EGFR STAT 08/03/2025 1:10 PM CAPACITOR PACK PRESS OPERATOR Prophylaxis for chemotherapy-induc ed neutropenia Malignant neoplasm metastatic to bone (HCC) Small cell carcinoma of lung, unspecified laterality, unspecified part of lung (HCC) DIFFERENTIAL AUTO STAT 08/03/2025 1:1 0 PM CAPACITOR PACK PRESS OPERATOR Prophylaxis for chemotherapy-induc ed neutropenia Malignant neoplasm metastatic to bone (HCC) Small cell carcinoma of lung, unspecified laterality, unspecified part of lung (HCC) CBC WITH AUTO DIFFERENTIAL STAT 08/03/2025 1:10 PM CAPACITOR PACK PRESS OPERATOR Prophylaxis for chemotherapy-induc ed neutropenia Malignant neoplasm metastatic to bone (HCC) Small cell carcinoma of lung, unspecified laterality, unspecified part of lung (HCC) COMPREHENSIVE METABOLIC PANEL STAT 08/03/2025 1:10 PM CAPACITOR PACK PRESS OPERATOR Prophylaxis for chemotherapy-induc ed neutropenia Malignant neoplasm metastatic to bone (HCC) Small cell carcinoma of lung, unspecified laterality, unspecified part of lung (HCC) THYROID FUNCTION CASCADE Routine 08/03/2025 1:10 PM CAPACITOR PACK PRESS OPERATOR Prophylaxis for chemotherapy-induc ed neutropenia Malignant neoplasm metastatic to bone (HCC) Small cell carcinoma of lung, unspecified laterality, unspecified part of lung (HCC) RESPIRATORY PATHOGEN PANEL Routine 07/14/2025 5:03 PM CDT Small cell lung cancer in adult (HCC) IRON PROFILE W/ IBC Routine 07/13/2025 8 :13 AM CDT Prophylaxis for chemotherapy-induc ed neutropenia Malignant neoplasm metastatic to bone (HCC) Small cell carcinoma of lung, unspecified laterality, unspecified part of lung (HCC) EGFR STAT 07/13/2025 8:13 AM CDT Prophylaxis for chemotherapy-induc ed neutropenia Malignant neoplasm metastatic to bone (HCC) Small cell carcinoma of lung, unspecified laterality, unspecified part of lung (HCC) DIFFERENTIAL AUTO STAT 07/13/2025 8:1 3 AM CDT Prophylaxis for chemotherapy-induc ed neutropenia Malignant neoplasm metastatic to bone (HCC) Small cell carcinoma of lung, unspecified laterality, unspecified part of lung (HCC) CBC WITH AUTO DIFFERENTIAL STAT 07/13/2025 8:13 AM CDT Prophylaxis for chemotherapy-induc ed neutropenia Malignant neoplasm metastatic to bone (HCC) Small cell carcinoma of lung, unspecified laterality, unspecified part of lung (HCC) COMPREHENSIVE METABOLIC PANEL STAT 07/13/2025 8:13 AM CDT Prophylaxis for chemotherapy-induc ed neutropenia Malignant neoplasm metastatic to bone (HCC) Small cell carcinoma of lung, unspecified laterality, unspecified part of lung (HCC) THYROID FUNCTION CASCADE Routine 07/13/2025 8:13 AM CDT Prophylaxis for chemotherapy-induc ed neutropenia Malignant neoplasm metastatic to bone (HCC) Small cell carcinoma of lung, unspecified laterality, unspecified part of lung (HCC) CT CHEST ABDOMEN PELVIS W CONTRAST Schedule ANNA, Read ANNA (Appt Today, Awaiting Results) 07/13/2025 7:40 AM CDT 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) Small cell carcinoma of lung, unspecified laterality, unspecified part of lung (HCC) Malignant neoplasm metastatic to bone (HCC) EGFR Routine 06/22/2025 4:45 PM CDT 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) Small cell carcinoma of lung, unspecified laterality, unspecified part of lung (HCC) Hyperkalemia BASIC METABOLIC PANEL Routine 06/22/2025 4:45 PM CDT 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) Small cell carcinoma of lung, unspecified laterality, unspecified part of lung (HCC) Hyperkalemia EGFR STAT 06/22/2025 1:05 PM CDT Prophylaxis for chemotherapy-induc ed neutropenia Malignant neoplasm metastatic to bone (HCC) Small cell carcinoma of lung, unspecified laterality, unspecified part of lung (HCC) DIFFERENTIAL AUTO STAT 06/22/2025 1:0 5 PM CDT Prophylaxis for chemotherapy-induc ed neutropenia Malignant neoplasm metastatic to bone (HCC) Small cell carcinoma of lung, unspecified laterality, unspecified part of lung (HCC) CBC WITH AUTO DIFFERENTIAL STAT 06/22/2025 1:05 PM CDT Prophylaxis for chemotherapy-induc ed neutropenia Malignant neoplasm metastatic to bone (HCC) Small cell carcinoma of lung, unspecified laterality, unspecified part of lung (HCC) COMPREHENSIVE METABOLIC PANEL STAT 06/22/2025 1:05 PM CDT Prophylaxis for chemotherapy-induc ed neutropenia Malignant neoplasm metastatic to bone (HCC) Small cell carcinoma of lung, unspecified laterality, unspecified part of lung (HCC) THYROID FUNCTION CASCADE Routine 06/22/2025 1:05 PM CDT Prophylaxis for chemotherapy-induc ed neutropenia Malignant neoplasm metastatic to bone (HCC) Small cell carcinoma of lung, unspecified laterality, unspecified part of lung (HCC) EGFR STAT 05/31/2025 10:42 AM CDT 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) Anemia associated with chemotherapy Hyperkalemia DIFFERENTIAL AUTO Routine 05/31/2025 10:42 AM CDT 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) Anemia associated with chemotherapy CBC WITH AUTO DIFFERENTIAL Routine 05/31/2025 10:42 AM CDT 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) Anemia associated with chemotherapy TYPE AND SCREEN Routine 05/31/2025 10:42 AM CDT 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) Anemia associated with chemotherapy COMPREHENSIVE METABOLIC PANEL STAT 05/31/2025 10:42 AM CDT 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) Anemia associated with chemotherapy Hyperkalemia POCT GLUCOSE DEVICE Routine 05/30/2025 12:29 PM CDT POTASSIUM, WHOLE BLOOD Timed 10:45 AM CDT POCT GLUCOSE DEVICE Routine 05/30/2025 8 :20 AM CDT POTASSIUM, WHOLE BLOOD STAT 8:42 PM CDT POCT GLUCOSE DEVICE Routine 05/29/2025 8 :41 PM CDT URIC ACID Routine 05/29/2025 7:20 PM CDT EGFR Routine 05/29/2025 7:20 PM CDT DIFFERENTIAL AUTO Routine 05/29/2025 7:2 0 PM CDT PHOSPHORUS Routine 05/29/2025 7:20 PM CDT COMPREHENSIVE METABOLIC PANEL Routine 05/29/2025 7:20 PM CDT CBC WITH AUTO DIFFERENTIAL Routine 05/29/2025 7:20 PM CDT POCT GLUCOSE DEVICE Routine 05/29/2025 5 :22 PM CDT POCT GLUCOSE DEVICE Routine 05/29/2025 11:03 AM CDT POCT GLUCOSE DEVICE Routine 05/29/2025 7 :37 AM CDT POTASSIUM, WHOLE BLOOD Timed 11:16 PM CDT POCT GLUCOSE DEVICE Routine 05/28/2025 8 :24 PM CDT URIC ACID Routine 05/28/2025 8:02 PM CDT EGFR Routine 05/28/2025 8:02 PM CDT DIFFERENTIAL AUTO Routine 05/28/2025 8:0 2 PM CDT PHOSPHORUS Routine 05/28/2025 8:02 PM CDT COMPREHENSIVE METABOLIC PANEL Routine 05/28/2025 8:02 PM CDT CBC WITH AUTO DIFFERENTIAL Routine 05/28/2025 8:02 PM CDT POCT GLUCOSE DEVICE Routine 05/28/2025 5 :03 PM CDT POTASSIUM, WHOLE BLOOD Routine 2:22 PM CDT POCT GLUCOSE DEVICE Routine 05/28/2025 2 :21 PM CDT POCT GLUCOSE DEVICE Routine 05/28/2025 12:16 PM CDT POCT GLUCOSE DEVICE Routine 05/28/2025 11:03 AM CDT POCT GLUCOSE DEVICE Routine 05/28/2025 9 :50 AM CDT ECG 12-LEAD STAT 05/28/2025 8:58 AM CDT POTASSIUM, WHOLE BLOOD STAT 8:20 AM CDT EGFR Routine 05/27/2025 11:17 PM CDT DIFFERENTIAL AUTO Routine 05/27/2025 11:17 PM CDT PHOSPHORUS Routine 05/27/2025 11:17 PM CDT COMPREHENSIVE METABOLIC PANEL Routine 05/27/2025 11:17 PM CDT CBC WITH AUTO DIFFERENTIAL Routine 05/27/2025 11:17 PM CDT FL MODIFIED BARIUM SWALLOW W VIDEO IP Routine 05/27/2025 10:21 AM CDT INSPECTOR BOILER EVALUATE AND TREAT VIDEOFLUOROSCOPIC SWALLOW STUDY Routine 05/27/2025 10:10 AM CDT INSPECTOR BOILER EVALUATE AND TREAT Routine 10:10 AM CDT EGFR Routine 05/26/2025 11:09 PM CDT DIFFERENTIAL AUTO Routine 05/26/2025 11:09 PM CDT URIC ACID Routine 05/26/2025 11:09 PM CDT PROTIME-INR Routine 05/26/2025 11:09 PM CDT PHOSPHORUS Routine 05/26/2025 11:09 PM CDT APTT Routine 05/26/2025 11:09 PM CDT LACTATE DEHYDROGENASE Routine 05/26/2025 11:09 PM CDT COMPREHENSIVE METABOLIC PANEL Routine 05/26/2025 11:09 PM CDT CBC WITH AUTO DIFFERENTIAL Routine 05/26/2025 11:09 PM CDT TYPE AND SCREEN Timed 05/26/2025 11:09 PM CDT MRI BRAIN TUMOR W WO CONTRAST IP Routine 05/26/2025 6:49 PM CDT CBC WITHOUT DIFFERENTIAL Timed 05/26/2025 12:08 PM CDT MANUAL DIFFERENTIAL STAT 05/25/2025 11:32 PM CDT EGFR STAT 05/25/2025 11:32 PM CDT URIC ACID Routine 05/25/2025 11:32 PM CDT LACTATE DEHYDROGENASE Routine 05/25/2025 11:32 PM CDT PROTIME-INR Routine 05/25/2025 11:32 PM CDT APTT Routine 05/25/2025 11:32 PM CDT TYPE AND SCREEN STAT 05/25/2025 11:32 PM CDT PHOSPHORUS STAT 05/25/2025 11:32 PM CDT MAGNESIUM STAT 05/25/2025 11:32 PM CDT COMPREHENSIVE METABOLIC PANEL STAT 05/25/2025 11:32 PM CDT CBC WITH AUTO DIFFERENTIAL STAT 05/25/2025 11:32 PM CDT POTASSIUM LEVEL STAT 05/25/2025 11:54 AM CDT 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) Hyperkalemia CT BODY OUTSIDE CONSULT Routine 05/25/20 25 11:12 AM CDT Diagnosis unknown DIFFERENTIAL AUTO STAT 05/25/2025 9:5 8 AM CDT Prophylaxis for chemotherapy-induc ed neutropenia Malignant neoplasm metastatic to bone (HCC) Small cell carcinoma of lung, unspecified laterality, unspecified part of lung (HCC) CBC WITH AUTO DIFFERENTIAL STAT 05/25/2025 9:58 AM CDT Prophylaxis for chemotherapy-induc ed neutropenia Malignant neoplasm metastatic to bone (HCC) Small cell carcinoma of lung, unspecified laterality, unspecified part of lung (HCC) EGFR STAT 05/25/2025 9:58 AM CDT Prophylaxis for chemotherapy-induc ed neutropenia Malignant neoplasm metastatic to bone (HCC) Small cell carcinoma of lung, unspecified laterality, unspecified part of lung (HCC) COMPREHENSIVE METABOLIC PANEL STAT 05/25/2025 9:58 AM CDT Prophylaxis for chemotherapy-induc ed neutropenia Malignant neoplasm metastatic to bone (HCC) Small cell carcinoma of lung, unspecified laterality, unspecified part of lung (HCC) THYROID FUNCTION CASCADE Routine 05/25/2025 9:58 AM CDT Prophylaxis for chemotherapy-induc ed neutropenia Malignant neoplasm metastatic to bone (HCC) Small cell carcinoma of lung, unspecified laterality, unspecified part of lung (HCC) EGFR STAT 05/14/2025 1:24 PM CDT 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) Malignant neoplasm metastatic to bone (HCC) Malignant neoplasm metastatic to liver (HCC) DIFFERENTIAL AUTO STAT 05/14/2025 1:2 4 PM CDT 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 73 m2 [...] last reviewed 2021. Blood 08/03/2025 1:10 PM CAPACITOR PACK PRESS OPERATOR 08/03/2025 1:19 PM CAPACITOR PACK PRESS OPERATOR Cheng Franco MD LAB BLOOD ORDERABLES Cherrie l Result [facility] [place] [address] * (ABNORMAL) Differential, auto (08/03/2025 1:10 PM CAPACITOR PACK PRESS OPERATOR) Neutrophil abs 13.07(H) 1.50 - 6.50 K/cumm Comment:Testing performed by : [facility], [address] [place] [phone] Lymphocyte abs 0.71(L) 0.80 - 3.30 K/cumm [facility] Comment:Testing performed by : [facility], [address] [place] [phone] Monocyte abs 1.11(H) 0.20 - 0.80 K/cumm [facility] Comment:Testing performed by : [facility], [address] [place] [phone] Eosinophil abs 0.05 0.00 - 0.50 K/cumm [facility] Comment:Testing performed by : [facility], [address] [place] [phone] Basophil abs 0.05 0.00 - 0.10 K/cumm [facility] Comment:Testing performed by : [facility], [address] [place] [phone] Neutrophil pct 87.2 % [facility] Comment: Interpretive Data Percent cell count reference ranges are not reported, since discordance with absolute values may lead to misinterpretation of CBC data. Current Interpretive Data was last revised on 2017. Testing performed by: [facility], [address] [place] [address] Lymphocyte pct 4.7 % [facility] Comment: Interpretive Data Percent cell count reference ranges are not reported, since discordance with absolute values may lead to misinterpretation of CBC data. Current Interpretive Data was last revised on 2017. Testing performed by: [facility], [address] [place] [address] Monocyte pct 7.4 % [facility] Comment: Interpretive Data Percent cell count reference ranges are not reported, since discordance with absolute values may lead to misinterpretation of CBC data. Current Interpretive Data was last revised on 2017. Testing performed by: [facility], [address] [place], [place] [id number] Eosinophil pct 0.3 % [facility] Comment: Interpretive Data Percent cell count reference ranges are not reported, since discordance with absolute values may lead to misinterpretation of CBC data. Current Interpretive Data was last revised on 2017. Testing performed by: [facility], [address] [place] [phone] Basophil pct 0.3 % [facility] Comment: Interpretive Data Percent cell count reference ranges are not reported, since discordance with absolute values may lead to misinterpretation of CBC data. Current Interpretive Data was last revised on 2017. Testing performed by: [facility], [address] [place] [phone] Blood 08/03/2025 1:10 PM CAPACITOR PACK PRESS OPERATOR 08/03/2025 1:17 PM CAPACITOR PACK PRESS OPERATOR Cheng Franco MD LAB BLOOD ORDERABLES Cherrie l Result [facility] [place] [address] * Thyroid Function [place] (08/03/2025 1:10 PM CAPACITOR PACK PRESS OPERATOR) [facility] TSH 1.81 0.30 - 4.20 mcIUnit/mL Blood 08/03/2025 1:10 PM CAPACITOR PACK PRESS OPERATOR 08/03/2025 1:19 PM CAPACITOR PACK PRESS OPERATOR Cheng Franco MD LAB BLOOD ORDERABLES Cherrie l Result Performing Organization Address [facility] Co de Phone Number [facility] [place] [address] * (ABNORMAL) CBC with auto differential (08/03/2025 1:10 PM CAPACITOR PACK PRESS OPERATOR) [facility] WBC 14.99(H) 3.80 - 9.90 K/cumm Comment:Testing performed by : [facility], [address] [place] [address] Hgb 9.8(L) 13.0 - 17.5 g/dL [facility] Comment:Testing performed by : [facility], [address] [place] [address] Hct 29.3(L) 38.9 - 50.3 % [facility] Comment:Testing performed by : [facility], [address] [place] [address] Plt 425(H) 150 - 400 K/cumm [facility] Comment:Testing performed by : [facility], [address] [place] [address] MPV 6.5(L) 6.8 - 10.4 fL C[facility] Comment:Testing performed by : [facility], [address] [place] [address] RBC 3.01(L) 4.30 - 5.80 M/cumm [facility] Comment:Testing performed by : [facility], [address] [place], [place] [phone] MCV 97.3(H) 81.3 - 96.4 fL [facility] Comment:Testing performed by : [facility], [address] [place], [place] [phone] MCH 32.5 27.1 - 33.3 pg [facility] Comment:Testing performed by : [facility], [address] [place], [place] [phone] MCHC 33.4 32.3 - 35.7 g/dL [facility] Comment:Testing performed by : [facility], [address] [place], [place] [phone] RDW CV 19.3(H) 11.1 - 14.9 % [facility] Comment:Testing performed by : [facility], [address] [place], [place] [phone] NRBC abs 0.00 0.00 - 0.01 K/cumm [facility] Comment:Testing performed by : [facility], [address] [place], [place] [phone] Blood 08/03/2025 1:10 PM CAPACITOR PACK PRESS OPERATOR 08/03/2025 1:17 PM CAPACITOR PACK PRESS OPERATOR us Cheng Franco MD LAB BLOOD ORDERABLES Cherrie l Result [facility] [place] [address] * (ABNORMAL) Comprehensive metabolic panel (08/03/2025 1:10 PM CAPACITOR PACK PRESS OPERATOR) Sodium 133(L) 135 - 145 mmol/L Potassium, pl 4.8 3.3 - 4.9 mmol/L [facility] Chloride 90(L) 97 - 110 mmol/L [facility] CO2 34(H) 22 - 32 mmol/L [facility] Anion gap 9 2 - 15 mmol/L [facility] BUN 19 6 - 25 mg/dL [facility] Creatinine 0.52(L) 0.80 - 1.30 mg/dL [facility] Glucose 135 70 - 199 mg/dL [facility] Comment: Interpretive Data Fasting glucose >/= [...] 2022. Calcium 9.5 8.5 - 10.3 mg/dL [facility] Bilirubin, total 0.3 0.1 - 1.2 mg/dL [facility] Protein, pl 6.7 6.5 - 8.5 g/dL [facility] Albumin 3.8 3.5 - 5.0 g/dL [facility] Alk phos 157(H) 40 - 130 Units/L [facility] ALT 73(H) 7 - 55 Units/L [facility] AST 75(H) 10 - 50 Units/L [facility] Comment:Hemolyzed; result ma y be falsely elevated Blood 08/03/2025 1:10 PM CAPACITOR PACK PRESS OPERATOR 08/03/2025 1:19 PM CAPACITOR PACK PRESS OPERATOR Cheng Franco MD LAB BLOOD ORDERABLES Cherrie l Result [facility] [place] [address] * Respiratory pathogen panel Nasopharyngeal (07/14/2025 5:03 PM CDT) Pathologist [facility] [place] Influenza A RNA Not Detected Not Detected Influenza B RNA Not Detected Not Detected [facility] RSV RNA Not Detected Not Detected [facility] COVID-19 RNA Not Detected Not Detected [facility] Coronavirus 229E RNA Not Detected Not Detected [facility] Coronavirus HKU1 RNA Not Detected Not Detected [facility] Coronavirus NL63 RNA Not Detected Not Detected [facility] Coronavirus OC43 RNA Not Detected Not Detected [facility] Adenovirus DNA Not Detected Not Detected [facility] Metapneumovirus RNA Not Detected Not Detected [facility] Rhinovirus/Enterov irus RNA Not Detected Not Detected [facility] Parainfluenza 1 RNA Not Detected Not Detected [facility] Parainfluenza 2 RNA Not Detected Not Detected [facility] Parainfluenza 3 RNA Not Detected Not Detected [facility] Parainfluenza 4 RNA Not Detected Not Detected [facility] B. pertussis DNA Not Detected Not Detected [facility] B. parapertussis DNA Not Detected Not Detected [facility] C. pneumoniae DNA Not Detected Not Detected [facility] M. pneumoniae DNA Not Detected Not Detected [facility] Nasopharyngeal 07/14/2025 5: 03 PM CDT 07/14/2025 5:50 PM CDT Narrative [facility] - 07/14/2025 6:43 PM CDT Is the Patient experiencing symptoms consistent with COVID?->Yes Surveillance testing for transplant patient?->No Interpretive Data The [employer] FilmArray Respiratory Panel (RP2.1) assay is a multiplexed real-time PCR based nucleic acid test capable of simultaneous qualitative detection and identification of multiple respiratory viral and bacterial nucleic acids, including SARS Coronavirus 2 (the causative agent of COVID-19). The following bacteria, viruses and virus subtypes can be identified using the FilmArray RP2.1 assay: Bordetella pertussis, Bordetella parapertussis, Chlamydia pneumoniae, Mycoplasma pneumoniae, Adenovirus, SARS Coronavirus 2, seasonal coronaviruses (Coronavirus HKU1, Coronavirus NL63, Coronavirus 229E, and Coronavirus OC43), Influenza A, Influenza A subtype H1, Influenza A subtype H3, Influenza A subtype 2009 H1, Influenza B, Metapneumovirus, Parainfluenza 1, Parainfluenza 2, Parainfluenza 3, Parainfluenza 4, RSV, Rhinovirus/Enterovirus. Due to the genetic similarity between human Rhinovirus and Enterovirus, the FilmArray RP2.1 assay cannot reliably differentiate them. Coronavirus OC43 may cross-react with some isolates of Coronavirus HKU1. A dual positive result may be due to cross-reactivity or may indicate a co- infection. The detection and identification of specific viral and bacterial nucleic acids from individuals exhibiting signs and symptoms of a respiratory infection aids in the diagnosis of respiratory infection if used in conjunction with other clinical and epidemiological information. The results of this test should not be used as the sole basis for diagnosis, treatment, or other management decisions. Negative results in the setting of a respiratory illness may be due to infection with pathogens that are not detected by this test. Positive results do not rule out infection/co-infection with other organisms. The agent(s) detected by the FilmArray RP2.1 may not be the definite cause of disease. Additional testing (lab, imaging, etc.) may be necessary when evaluating a patient with possible respiratory tract infection. The FilmArray RP2.1 assay has FDA clearance for testing of HAND ORNAMENT MAKER swabs. The performance of additional specimen types has been assessed by the performing laboratory. The performance characteristics of this assay have been determined by [facility]. Current interpretive data was last revised on 22. Cheng Franco MD LAB MICROBIOLOGY - GENERA L ORDERABLES Final Result [facility] [place] [address] * eGFR (07/13/2025 8:13 AM CDT) eGFR >90 >=60 mL/min/1. 73 m2 Comment: [...] interpretive data was last reviewed 2021. Blood 07/13/2025 8:13 AM CDT 07/13/2025 8:22 AM CDT us Demetra Savage HAND ORNAMENT MAKER LAB BLOOD ORDERABLES Final Result [facility] [place] [address] * (ABNORMAL) Differential, auto (07/13/2025 8:13 AM CDT) Neutrophil abs 7.34(H) 1.50 - 6.50 K/cumm Comment:Testing performed by : [facility], [address] [place], [place] [id number] Lymphocyte abs 0.71(L) 0.80 - 3.30 K/cumm [facility] Comment:Testing performed by : [facility], [address] [place], [place] [phone] Monocyte abs 0.65 0.20 - 0.80 K/cumm [facility] Comment:Testing performed by : [facility], [address] [place], [place] [phone] Eosinophil abs 0.03 0.00 - 0.50 K/cumm [facility] Comment:Testing performed by : [facility], [address] [place], [place] [phone] Basophil abs 0.03 0.00 - 0.10 K/cumm [facility] Comment:Testing performed by : [facility], [address] [place], [place] [phone] Neutrophil pct 83.8 % [facility] Comment: Interpretive Data Percent cell count reference ranges are not reported, since discordance with absolute values may lead to misinterpretation of CBC data. Current Interpretive Data was last revised on 2017. Testing performed by: [facility], [address] [place], [place] [id number] Lymphocyte pct 8.1 % [facility] Comment: Interpretive Data Percent cell count reference ranges are not reported, since discordance with absolute values may lead to misinterpretation of CBC data. Current Interpretive Data was last revised on 2017. Testing performed by: [facility], [address] [place] [phone] Monocyte pct 7.4 % [facility] Comment: Interpretive Data Percent cell count reference ranges are not reported, since discordance with absolute values may lead to misinterpretation of CBC data. Current Interpretive Data was last revised on 2017. Testing performed by: [facility], [address] [place] [phone] Eosinophil pct 0.3 % [facility] Comment: Interpretive Data Percent cell count reference ranges are not reported, since discordance with absolute values may lead to misinterpretation of CBC data. Current Interpretive Data was last revised on 2017. Testing performed by: [facility], [address] [place] [phone] Basophil pct 0.3 % [facility] Comment: Interpretive Data Percent cell count reference ranges are not reported, since discordance with absolute values may lead to misinterpretation of CBC data. Current Interpretive Data was last revised on 2017. Testing performed by: [facility], [address] [place] [phone] Blood 07/13/2025 8:13 AM CDT 07/13/2025 8:19 AM CDT us Demetra Savage HAND ORNAMENT MAKER LAB BLOOD ORDERABLES Final Result [facility] [place] [address] * Thyroid Function [place] (07/13/2025 8:13 AM CDT) TSH 0.77 0.30 - 4.20 mcIUnit/mL Blood 07/13/2025 8:13 AM CDT 07/13/2025 8:22 AM CDT us Demetra Savage HAND ORNAMENT MAKER LAB BLOOD ORDERABLES Final Result [facility] [place] [address] * Iron profile w/ IBC (07/13/2025 8:13 AM CDT) Iron 51 50 - 150 mcg/dL TIBC 252 250 - 400 mcg/dL [facility] Transferrin saturation 20 20 - 50 % [facility] Blood 07/13/2025 8:13 AM CDT 07/13/2025 8:22 AM CDT us Andree Rawls MD LAB BLOOD ORDERABLES Final Result Performing Organization Address City/[facility] Co de Phone Number [facility] Department [place] [address] * (ABNORMAL) CBC with auto differential (07/13/2025 8:13 AM CDT) Pathologist [facility] [place] WBC 8.76 3.80 - 9.90 K/cumm Comment:Testing performed by : [facility], [address] [place] [phone] Hgb 9.3(L) 13.0 - 17.5 g/dL [facility] Comment:Testing performed by : [facility], [address] [place] [phone] Hct 26.6(L) 38.9 - 50.3 % [facility] Comment:Testing performed by : [facility], [address] [place] [phone] Plt 251 150 - 400 K/cumm [facility] Comment:Testing performed by : [facility], [address] [place] [phone] MPV 6.1(L) 6.8 - 10.4 fL [facility] Comment:Testing performed by : [facility], [address] [place] [address] RBC 2.85(L) 4.30 - 5.80 M/cumm [facility] Comment:Testing performed by : [facility], [address] [place] [address] MCV 93.2 81.3 - 96.4 fL [facility] Comment:Testing performed by : [facility], [address] [place] [address] MCH 32.4 27.1 - 33.3 pg [facility] Comment:Testing performed by : [facility], [address] [place] [address] MCHC 34.8 32.3 - 35.7 g/dL [facility] Comment:Testing performed by : [facility], [address] [place] [address] RDW CV 17.0(H) 11.1 - 14.9 % [facility] Comment:Testing performed by : [facility], [address] [place] [address] NRBC abs 0.00 0.00 - 0.01 K/cumm [facility] Comment:Testing performed by : [facility], [address] [place] [address] Blood 07/13/2025 8:13 AM CDT 07/13/2025 8:19 AM CDT Demetra Savage HAND ORNAMENT MAKER LAB BLOOD ORDERABLES Final Result [facility] Department of Laboratories [place], [place] [id number] * (ABNORMAL) Comprehensive metabolic panel (07/13/2025 8:13 AM CDT) Sodium 127(L) 135 - 145 mmol/L Potassium, pl 4.2 3.3 - 4.9 mmol/L [facility] Chloride 89(L) 97 - 110 mmol/L [facility] CO2 32 22 - 32 mmol/L [facility] Anion gap 6 2 - 15 mmol/L [facility] BUN 10 6 - 25 mg/dL [facility] Creatinine 0.42(L) 0.80 - 1.30 mg/dL [facility] Glucose 96 70 - 199 mg/dL [facility] Comment: Interpretive Data Fasting glucose >/= [...] interpretive data was last revised 2022. Calcium 8.2(L) 8.5 - 10.3 mg/dL [facility] Bilirubin, total 0.2 0.1 - 1.2 mg/dL [facility] Protein, pl 6.0(L) 6.5 - 8.5 g/dL [facility] Albumin 3.5 3.5 - 5.0 g/dL [facility] Alk phos 89 40 - 130 Units/L [facility] ALT 32 7 - 55 Units/L [facility] AST 33 10 - 50 Units/L [facility] Blood 07/13/2025 8:13 AM CDT 07/13/2025 8:22 AM CDT Demetra Savage NP LAB BLOOD ORDERABLES Final Result [facility] [place] [address] * CT Chest Abdomen Pelvis W Contrast (07/13/2025 7:40 AM CDT) Anatomical Region Laterality Modality Body N/A Computed Tomogra phy 07/13/2025 8:19 AM CDT Impressions 07/13/2025 8:19 AM CDT 1. Stable left upper lobe mass with postobstructive change in the left upper lobe consistent with small cell lung cancer. 2. Interval improvement in mediastinal lymphadenopathy consistent with some response to therapy in this location. 3. Interval improvement in hepatic metastatic disease. Stable adrenal lesions. 4. New periportal lymphadenopathy which is concerning for worsening metastatic disease at this site. New relatively severe narrowing of the central superior mesenteric vein secondary to mass effect from surrounding structures; the vein is still patent. 5. New sclerotic left iliac lesion consistent with metastatic disease. Interval increase in lytic change in the right supra-acetabular iliac bone is also consistent with metastasis. This lesion places the patient risk for pathologic fracture. 6. Background of emphysema with multiple new small pulmonary nodules; many of these may be inflammatory given short-term change and extensive emphysema with findings of chronic bronchitis. Follow-up is required to determine whether some of these may represent sites of metastatic disease. Electronically signed by: Benjamín Castorena M.D. Narrative 07/13/2025 8:19 AM CDT EXAMINATION: Computed tomography of the chest, abdomen and pelvis with intravenous contrast HISTORY: Small cell carcinoma TECHNIQUE: Transaxial computed tomographic images of the chest, abdomen and pelvis were obtained with intravenous contrast according to the standard protocol after the administration of 69 mL Opti-Ray 350 intravenous contrast. COMPARISON: 05/19/2025 FINDINGS: No supraclavicular or axillary lymphadenopathy. There is a left vertebral artery stents. Mediastinal nodes have decreased in size. For example, an aorticopulmonary window lymph node which measured 12 mm on the prior examination is now less than 4 mm in short axis. Another left paratracheal node at scanner position -1079.9 measures 11 mm versus 20 mm on the prior. This does have some new impression upon and possible invasion of the anterior aspect of the left mainstem bronchus at scanner position -1089.9. A left upper lobe mass encases the anterior segment left upper lobe pulmonary artery and occludes the anterior segment left upper lobe bronchus centered at scanner position -1093.9 is unchanged in size measuring 3.6 x 3.3 cm at scanner position -1093.9. Some postobstructive change in the anterior left upper lobe is similar. There is some stable atelectasis in the lingula. There is a background of severe emphysema. 8 mm right upper lobe nodule of scanner position -999.9 is stable. There are some other scattered small nodules, several of which are new. For example, there is a new peripheral nodular opacity in the right upper lobe at scanner position -1085.9. There is a new 5 mm left upper lobe nodule of scanner position -1051.9. Hepatic metastatic disease has improved. For example, segment 6 lesion at scanner position -1345.9 measures 2.8 cm today versus 3.9 cm on the prior. A segment 5 lesion at scanner position -1037.9 measures up to 3.3 cm today, 5.0 cm on the prior. There is a large mass involving much of the lateral section which is difficult to measure on the prior noncontrast exam is also likely smaller. No biliary ductal dilatation. Gallbladder is grossly normal. Portal and superior mesenteric veins are patent, although there is some mass effect on the central superior mesenteric vein just distal to the portal splenic confluence resulting in relatively severe narrowing. There are enlarged periportal lymph nodes which were not definitely seen on prior exams measuring 10 and 11 mm at scanner position -1289.9. These extend cranially into the gastrohepatic ligament where there are additional enlarged nodes measuring up to 8 mm. Spleen is normal. Pancreas is normal. Right adrenal enlargement measuring up to 2.5 x 1.5 cm is stable. There is also stable enlargement of the left adrenal gland measuring up to 2.5 x 1.5 cm. No renal lesions or hydronephrosis. There is extensive aortoiliac atherosclerotic disease with occlusion of the left common iliac artery. There is moderate narrowing of the superior mesenteric artery origin. The prostate is markedly enlarged. There are stone fragments in the bladder. The bladder is chronically thick-walled, in keeping with chronic cystitis. Espinosa catheter is in place. No bowel wall thickening or obstruction. No omental or mesenteric lesions. There is a new sclerotic lesion in the left iliac bone measuring up to 4.9 cm consistent with metastasis. There is also increased lytic change in the right supra-acetabular iliac bone which can be seen at scanner position -1441.9. Procedure Note Benjamín Castorena MD - 07/13/2025 EXAMINATION: Computed tomography of the chest, abdomen and pelvis with intravenous contrast HISTORY: Small cell carcinoma TECHNIQUE: Transaxial computed tomographic images of the chest, abdomen and pelvis were obtained with intravenous contrast according to the standard protocol after the administration of 69 mL Opti-Ray 350 intravenous contrast. COMPARISON: 05/19/2025 FINDINGS: No supraclavicular or axillary lymphadenopathy. There is a left vertebral artery stents. Mediastinal nodes have decreased in size. For example, an aorticopulmonary window lymph node which measured 12 mm on the prior examination is now less than 4 mm in short axis. Another left paratracheal node at scanner position -1079.9 measures 11 mm versus 20 mm on the prior. This does have some new impression upon and possible invasion of the anterior aspect of the left mainstem bronchus at scanner position -1089.9. A left upper lobe mass encases the anterior segment left upper lobe pulmonary artery and occludes the anterior segment left upper lobe bronchus centered at scanner position -1093.9 is unchanged in size measuring 3.6 x 3.3 cm at scanner position -1093.9. Some postobstructive change in the anterior left upper lobe is similar. There is some stable atelectasis in the lingula. There is a background of severe emphysema. 8 mm right upper lobe nodule of scanner position -999.9 is stable. There are some other scattered small nodules, several of which are new. For example, there is a new peripheral nodular opacity in the right upper lobe at scanner position -1085.9. There is a new 5 mm left upper lobe nodule of scanner position -1051.9. Hepatic metastatic disease has improved. For example, segment 6 lesion at scanner position -1345.9 measures 2.8 cm today versus 3.9 cm on the prior. A segment 5 lesion at scanner position -1037.9 measures up to 3.3 cm today, 5.0 cm on the prior. There is a large mass involving much of the lateral section which is difficult to measure on the prior noncontrast exam is also likely smaller. No biliary ductal dilatation. Gallbladder is grossly normal. Portal and superior mesenteric veins are patent, although there is some mass effect on the central superior mesenteric vein just distal to the portal splenic confluence resulting in relatively severe narrowing. There are enlarged periportal lymph nodes which were not definitely seen on prior exams measuring 10 and 11 mm at scanner position -1289.9. These extend cranially into the gastrohepatic ligament where there are additional enlarged nodes measuring up to 8 mm. Spleen is normal. Pancreas is normal. Right adrenal enlargement measuring up to 2.5 x 1.5 cm is stable. There is also stable enlargement of the left adrenal gland measuring up to 2.5 x 1.5 cm. No renal lesions or hydronephrosis. There is extensive aortoiliac atherosclerotic disease with occlusion of the left common iliac artery. There is moderate narrowing of the superior mesenteric artery origin. The prostate is markedly enlarged. There are stone fragments in the bladder. The bladder is chronically thick-walled, in keeping with chronic cystitis. Espinosa catheter is in place. No bowel wall thickening or obstruction. No omental or mesenteric lesions. There is a new sclerotic lesion in the left iliac bone measuring up to 4.9 cm consistent with metastasis. There is also increased lytic change in the right supra-acetabular iliac bone which can be seen at scanner position -1441.9. IMPRESSION: 1. Stable left upper lobe mass with postobstructive change in the left upper lobe consistent with small cell lung cancer. 2. Interval improvement in mediastinal lymphadenopathy consistent with some response to therapy in this location. 3. Interval improvement in hepatic metastatic disease. Stable adrenal lesions. 4. New periportal lymphadenopathy which is concerning for worsening metastatic disease at this site. New relatively severe narrowing of the central superior mesenteric vein secondary to mass effect from surrounding structures; the vein is still patent. 5. New sclerotic left iliac lesion consistent with metastatic disease. Interval increase in lytic change in the right supra-acetabular iliac bone is also consistent with metastasis. This lesion places the patient risk for pathologic fracture. 6. Background of emphysema with multiple new small pulmonary nodules; many of these may be inflammatory given short-term change and extensive emphysema with findings of chronic bronchitis. Follow-up is required to determine whether some of these may represent sites of metastatic disease. Electronically signed by: Benjamín Castorena M.D. us Cheng Franco MD IM CT PROCEDURES Final R esult * eGFR (06/22/2025 4:45 PM CDT) eGFR >90 >=60 mL/min/1. 73 m2 Comment: [...] interpretive data was last reviewed 2021. Blood 06/22/2025 4:45 PM CDT 06/22/2025 5:33 PM CDT us Cheng Franco MD LAB BLOOD ORDERABLES Cherrie l Result [facility] [place] [address] * (ABNORMAL) Basic metabolic panel (06/22/2025 4:45 PM CDT) [facility] Sodium 139 135 - 145 mmol/L Potassium, pl 4.2 3.3 - 4.9 mmol/L [facility] Chloride 98 97 - 110 mmol/L [facility] CO2 34(H) 22 - 32 mmol/L [facility] Anion gap 7 2 - 15 mmol/L [facility] BUN 14 6 - 25 mg/dL [facility] Creatinine 0.54(L) 0.80 - 1.30 mg/dL [facility] [facility] Glucose 105 70 - 199 mg/dL [facility] Comment: Interpretive Data Fasting glucose >/= [...] interpretive data was last revised 2022. Calcium 7.9(L) 8.5 - 10.3 mg/dL [facility] Blood 06/22/2025 4:45 PM CDT 06/22/2025 5:30 PM CDT Cheng Franco MD LAB BLOOD ORDERABLES Cherrie l Result Performing Organization Address [facility] Co de Phone Number [facility] [place] [address] * eGFR (06/22/2025 1:05 PM CDT) eGFR >90 >=60 mL/min/1. 73 m2 Comment: [...] interpretive data was last reviewed 2021. Blood 06/22/2025 1:05 PM CDT 06/22/2025 1:09 PM CDT Cheng Franco MD LAB BLOOD ORDERABLES Cherrie l Result Performing Organization Address City/[facility]/ZIP Co de Phone Number [facility] [place] [address] * (ABNORMAL) Differential, auto (06/22/2025 1:05 PM CDT) Neutrophil abs 9.15(H) 1.50 - 6.50 K/cumm Comment:Testing performed by : [facility], [address] [place] [address] Lymphocyte abs 0.76(L) 0.80 - 3.30 K/cumm [facility] Comment:Testing performed by : [facility], [address] [place] [address] Monocyte abs 0.90(H) 0.20 - 0.80 K/cumm [facility] Comment:Testing performed by : [facility], [address] [place] [address] Eosinophil abs 0.10 0.00 - 0.50 K/cumm [facility] Comment:Testing performed by : [facility], [address] [place] [address] Basophil abs 0.04 0.00 - 0.10 K/cumm [facility] Comment:Testing performed by : [facility], [address] [place], [place] [phone] Neutrophil pct 83.6 % [facility] Comment: Interpretive Data Percent cell count reference ranges are not reported, since discordance with absolute values may lead to misinterpretation of CBC data. Current Interpretive Data was last revised on 2017. Testing performed by: [facility], [address] [place], [place] [phone] Lymphocyte pct 6.9 % [facility] Comment: Interpretive Data Percent cell count reference ranges are not reported, since discordance with absolute values may lead to misinterpretation of CBC data. Current Interpretive Data was last revised on 2017. Testing performed by: [facility], [address] [place], [place] [phone] Monocyte pct 8.2 % [facility] Comment: Interpretive Data Percent cell count reference ranges are not reported, since discordance with absolute values may lead to misinterpretation of CBC data. Current Interpretive Data was last revised on 2017. Testing performed by: [facility], [address] [place] [phone] Eosinophil pct 0.9 % [facility] Comment: Interpretive Data Percent cell count reference ranges are not reported, since discordance with absolute values may lead to misinterpretation of CBC data. Current Interpretive Data was last revised on 2017. Testing performed by: [facility], [address] [place] [phone] Basophil pct 0.3 % [facility] Comment: Interpretive Data Percent cell count reference ranges are not reported, since discordance with absolute values may lead to misinterpretation of CBC data. Current Interpretive Data was last revised on 2017. Testing performed by: [facility], [address] [place] [phone] Blood 06/22/2025 1:05 PM CDT 06/22/2025 1:06 PM CDT Cheng Franco MD LAB BLOOD ORDERABLES Cherrie l Result [facility] [place] [address] * Thyroid Function [place] (06/22/2025 1:05 PM CDT) TSH 0.98 0.30 - 4.20 mcIUnit/mL Blood 06/22/2025 1:05 PM CDT 06/22/2025 1:09 PM CDT Cheng Franco MD LAB BLOOD ORDERABLES Cherrie l Result [facility] [place] [address] * (ABNORMAL) CBC with auto differential (06/22/2025 1:05 PM CDT) WBC 10.94(H) 3.80 - 9.90 K/cumm Comment:Testing performed by : [facility], [address] [place] [address] Hgb 10.5(L) 13.0 - 17.5 g/dL [facility] Comment:Testing performed by : [facility], [address] [place] [address] Hct 31.9(L) 38.9 - 50.3 % [facility] Comment:Testing performed by : [facility], [address] [place] [address] Plt 474(H) 150 - 400 K/cumm [facility] Comment:Testing performed by : [facility], [address] [place] [address] MPV 6.4(L) 6.8 - 10.4 fL [facility] Comment:Testing performed by : [facility], [address] [place] [address] RBC 3.26(L) 4.30 - 5.80 M/cumm [facility] Comment:Testing performed by : [facility], [address] [place] [address] MCV 97.9(H) 81.3 - 96.4 fL [facility] Comment:Testing performed by : [facility], [address] [place] [address] MCH 32.1 27.1 - 33.3 pg [facility] Comment:Testing performed by : [facility], [address] [place] [address] MCHC 32.8 32.3 - 35.7 g/dL [facility] Comment:Testing performed by : [facility], [address] [place] [address] RDW CV 18.4(H) 11.1 - 14.9 % [facility] Comment:Testing performed by : [facility], [address] [place] [address] NRBC abs 0.00 0.00 - 0.01 K/cumm [facility] Comment:Testing performed by : [facility], [address] [place] [phone] Blood 06/22/2025 1:05 PM CDT 06/22/2025 1:06 PM CDT Cheng Franco MD LAB BLOOD ORDERABLES Cherrie albarran Result [facility] [place] [address] * (ABNORMAL) Comprehensive metabolic panel (06/22/2025 1:05 PM CDT) Sodium 139 135 - 145 mmol/L Potassium, pl 5.7(H) 3.3 - 4.9 mmol/L [facility] Chloride 93(L) 97 - 110 mmol/L [facility] CO2 39(H) 22 - 32 mmol/L [facility] Anion gap 7 2 - 15 mmol/L [facility] BUN 17 6 - 25 mg/dL [facility] Creatinine 0.58(L) 0.80 - 1.30 mg/dL [facility] Glucose 120 70 - 199 mg/dL [facility] Comment: Interpretive Data Fasting glucose >/= [...] interpretive data was last revised 2022. Calcium 9.2 8.5 - 10.3 mg/dL [facility] Bilirubin, total 0.3 0.1 - 1.2 mg/dL [facility] Protein, pl 7.2 6.5 - 8.5 g/dL [facility] Albumin 4.1 3.5 - 5.0 g/dL [facility] Alk phos 117 40 - 130 Units/L [facility] ALT 37 7 - 55 Units/L [facility] AST 39 10 - 50 Units/L [facility] Blood 06/22/2025 1:05 PM CDT 06/22/2025 1:09 PM CDT Cheng Franco MD LAB BLOOD ORDERABLES Cherrie l Result Performing Organization Address [facility] de Phone Number [facility] [place] [address] * eGFR (05/31/2025 10:42 AM CDT) eGFR >90 >=60 mL/min/1. 73 m2 Comment: [...] interpretive data was last reviewed 2021. Blood 05/31/2025 10:4 2 AM CDT 05/31/2025 10:51 AM CDT Cheng Franco MD LAB BLOOD ORDERABLES Cherrie l Result Performing Organization Address [facility] Co de Phone Number [facility] [place] [address] * (ABNORMAL) Differential, auto (05/31/2025 10:42 AM CDT) Neutrophil abs 10.52(H) 1.50 - 6.50 K/cumm Comment:Testing performed by : [facility], [address] [place] [address] Lymphocyte abs 0.86 0.80 - 3.30 K/cumm [facility] Comment:Testing performed by : [facility], [address] [place] [address] Monocyte abs 0.20 0.20 - 0.80 K/cumm [facility] Comment:Testing performed by : [facility], [address] [place], [place] [phone] Eosinophil abs 0.05 0.00 - 0.50 K/cumm [facility] Comment:Testing performed by : [facility], [address] [place] [address] Basophil abs 0.02 0.00 - 0.10 K/cumm [facility] Comment:Testing performed by : [facility], [address] [place], [place] [phone] Neutrophil pct 90.2 % [facility] Comment: Interpretive Data Percent cell count reference ranges are not reported, since discordance with absolute values may lead to misinterpretation of CBC data. Current Interpretive Data was last revised on 2017. Testing performed by: [facility], [address] [place], [place] [phone] Lymphocyte pct 7.4 % [facility] Comment: Interpretive Data Percent cell count reference ranges are not reported, since discordance with absolute values may lead to misinterpretation of CBC data. Current Interpretive Data was last revised on 2017. Testing performed by: [facility], [address] [place], [place] [phone] Monocyte pct 1.8 % [facility] Comment: Interpretive Data Percent cell count reference ranges are not reported, since discordance with absolute values may lead to misinterpretation of CBC data. Current Interpretive Data was last revised on 2017. Testing performed by: [facility], [address] [place], [place] [phone] Eosinophil pct 0.4 % [facility] Comment: Interpretive Data Percent cell count reference ranges are not reported, since discordance with absolute values may lead to misinterpretation of CBC data. Current Interpretive Data was last revised on 2017. Testing performed by: [facility], [address] [place] [address] Basophil pct 0.2 % [facility] Comment: Interpretive Data Percent cell count reference ranges are not reported, since discordance with absolute values may lead to misinterpretation of CBC data. Current Interpretive Data was last revised on 2017. Testing performed by: [facility], [address] [place] [address] Blood 05/31/2025 10:4 2 AM CDT 05/31/2025 10:45 AM CDT us Cheng Franco MD LAB BLOOD ORDERABLES Cherrie l Result [facility] [place] [address] * (ABNORMAL) CBC with auto differential (05/31/2025 10:42 AM CDT) WBC 11.66(H) 3.80 - 9.90 K/cumm Comment:Testing performed by : [facility], [address] [place] [address] Hgb 10.7(L) 13.0 - 17.5 g/dL [facility] Comment:Testing performed by : [facility], [address] [place] [address] Hct 32.5(L) 38.9 - 50.3 % [facility] Comment:Testing performed by : [facility], [address] [place] [address] Plt 321 150 - 400 K/cumm [facility] Comment:Testing performed by : [facility], [address] [place] [address] MPV 7.0 6.8 - 10.4 fL [facility] Comment:Testing performed by : [facility], [address] [place], [place] [phone] RBC 3.41(L) 4.30 - 5.80 M/cumm [facility] Comment:Testing performed by : [facility], [address] [place], [place] [phone] MCV 95.3 81.3 - 96.4 fL [facility] Comment:Testing performed by : [facility], [address] [place], [place] [phone] MCH 31.4 27.1 - 33.3 pg [facility] Comment:Testing performed by : [facility], [address] [place], [place] [phone] MCHC 33.0 32.3 - 35.7 g/dL [facility] Comment:Testing performed by : [facility], [address] [place] [address] RDW CV 17.6(H) 11.1 - 14.9 % [facility] Comment:Testing performed by : [facility], [address] [place] [address] NRBC abs 0.00 0.00 - 0.01 K/cumm [facility] Comment:Testing performed by : [facility], [address] [place] [address] Blood 05/31/2025 10:4 2 AM CDT 05/31/2025 10:45 AM CDT Cheng Franco MD LAB BLOOD ORDERABLES Cherrie l Result [facility] Department of [facility] [place], [place] [id number] * Type and screen (05/31/2025 10:42 AM CDT) ABO Rh A Positive Cahr, indirect Negative [facility] Blood 05/31/2025 10:4 2 AM CDT 05/31/2025 10:53 AM CDT Narrative [facility] - 05/31/2025 11:42 AM CDT Has the patient had Daratumumab or Isatuximab in the past 6 months?->Unknown Cheng Franco MD LAB BLOOD BANK TEST ORDER ELLA Final Result [facility] [place] [address] * (ABNORMAL) Comprehensive metabolic panel (05/31/2025 10:42 AM CDT) Sodium 134(L) 135 - 145 mmol/L Potassium, pl 4.5 3.3 - 4.9 mmol/L [facility] Chloride 91(L) 97 - 110 mmol/L [facility] CO2 37(H) 22 - 32 mmol/L [facility] Anion gap 6 2 - 15 mmol/L [facility] BUN 25 6 - 25 mg/dL [facility] Creatinine 0.54(L) 0.80 - 1.30 mg/dL [facility] Glucose 91 70 - 199 mg/dL [facility] Comment: Interpretive Data Fasting glucose >/= [...] interpretive data was last revised 2022. Calcium 8.7 8.5 - 10.3 mg/dL [facility] Bilirubin, total 0.4 0.1 - 1.2 mg/dL [facility] Protein, pl 6.2(L) 6.5 - 8.5 g/dL [facility] Albumin 3.4(L) 3.5 - 5.0 g/dL [facility] Alk phos 76 40 - 130 Units/L [facility] ALT 44 7 - 55 Units/L [facility] AST 40 10 - 50 Units/L [facility] Blood 05/31/2025 10:4 2 AM CDT 05/31/2025 10:51 AM CDT Cheng Franco MD LAB BLOOD ORDERABLES Cherrie l Result Performing Organization Address [facility] Co de Phone Number [facility] [place] [address] * POCT glucose (05/30/2025 12:29 PM CDT) Glucose, POC 115 70 - 199 mg/dL Blood 05/30/2025 12:2 9 PM CDT 05/30/2025 12:29 PM CDT Jerry Ray MD LAB POCT ORDERABLES - DEVICE F inal Result Performing Organization Address [facility] de Phone Number [facility] [place] [address] * Potassium, whole blood (05/30/2025 10:45 AM CDT) Potassium, bld 4.2 3.3 - 4.9 mmol/L Blood 05/30/2025 10:4 5 AM CDT 05/30/2025 10:54 AM CDT Jerry Ray MD LAB BLOOD ORDERABLES Final Res ult Performing Organization Address [facility] Co de Phone Number [facility] [place] [address] * POCT glucose (05/30/2025 8:20 AM CDT) Glucose, POC 109 70 - 199 mg/dL Blood 05/30/2025 8:20 AM CDT 05/30/2025 8:20 AM CDT Jerry Ray MD LAB POCT ORDERABLES - DEVICE F inal Result Performing Organization Address [facility] Co de Phone Number [facility] [place] [address] * (ABNORMAL) Potassium, whole blood (05/29/2025 8:42 PM CDT) Pathologist [facility] Potassium, bld 5.1(H) 3.3 - 4.9 mmol/L Blood 05/29/2025 8:42 PM CDT 05/29/2025 8:49 PM CDT Ji Chambers MD LAB BLOOD ORDERABLES Final Resu lt Performing Organization Address [facility] Co de Phone Number [facility] [place] [address] * POCT glucose (05/29/2025 8:41 PM CDT) [facility] Glucose, POC 150 70 - 199 mg/dL Blood 05/29/2025 8:41 PM CDT 05/29/2025 8:41 PM CDT Jerry Ray MD LAB POCT ORDERABLES - DEVICE F inal Result Performing Organization Address [facility] Co de Phone Number [facility] [place] [address] * eGFR (05/29/2025 7:20 PM CDT) Pathologist [facility] [place] eGFR >90 >=60 mL/min/1. 73 m2 Comment: [...] of Race in Diagnosing Kidney Disease, JASN 202). The CKD-EPI equation should not be used for patients with unstable renal function and has not been validated in children and those over 70. Current interpretive data was last reviewed 2021. Blood 05/29/2025 7:20 PM CDT 05/29/2025 7:26 PM CDT us eKl Nunn MD PhD LAB BLOOD ORDERABLES Final Result [facility] [place] [address] * (ABNORMAL) Differential, auto (05/29/2025 7:20 PM CDT) Neutrophil abs 14.27(H) 1.50 - 6.50 K/cumm Imm gran abs 0.07 0.00 - 0.10 K/cumm [facility] Lymphocyte abs 0.52(L) 0.80 - 3.30 K/cumm [facility] Monocyte abs 0.75 0.20 - 0.80 K/cumm [facility] Eosinophil abs 0.01 0.00 - 0.50 K/cumm [facility] Basophil abs 0.01 0.00 - 0.10 K/cumm [facility] Neutrophil pct 91.3 % [facility] Comment: Interpretive Data Percent cell count reference ranges are not reported, since discordance with absolute values may lead to misinterpretation of CBC data. Current Interpretive Data was last revised on 2017. Imm gran pct 0.4 % [facility] Comment: Interpretive Data Percent cell count reference ranges are not reported, since discordance with absolute values may lead to misinterpretation of CBC data. Current Interpretive Data was last revised on 2017. Lymphocyte pct 3.3 % [facility] Comment: Interpretive Data Percent cell count reference ranges are not reported, since discordance with absolute values may lead to misinterpretation of CBC data. Current Interpretive Data was last revised on 2017. Monocyte pct 4.8 % [facility] Comment: Interpretive Data Percent cell count reference ranges are not reported, since discordance with absolute values may lead to misinterpretation of CBC data. Current Interpretive Data was last revised on 2017. Eosinophil pct 0.1 % [facility] Comment: Interpretive Data Percent cell count reference ranges are not reported, since discordance with absolute values may lead to misinterpretation of CBC data. Current Interpretive Data was last revised on 2017. Basophil pct 0.1 % [facility] Comment: Interpretive Data Percent cell count reference ranges are not reported, since discordance with absolute values may lead to misinterpretation of CBC data. Current Interpretive Data was last revised on 2017. Blood 05/29/2025 7:20 PM CDT 05/29/2025 7:26 PM CDT Kel Nunn MD PhD LAB BLOOD ORDERABLES Final Result [facility] [place] [address] * (ABNORMAL) CBC with auto differential (05/29/2025 7:20 PM CDT) WBC 15.63(H) 3.80 - 9.90 K/cumm Hgb 9.2(L) 13.0 - 17.5 g/dL [facility] Hct 28.2(L) 38.9 - 50.3 % [facility] Plt 314 150 - 400 K/cumm [facility] MPV 9.9 9.1 - 12.3 fL [facility] RBC 2.85(L) 4.30 - 5.80 M/cumm [facility] MCV 98.9(H) 81.3 - 96.4 fL [facility] MCH 32.3 27.1 - 33.3 pg [facility] MCHC 32.6 32.3 - 35.7 g/dL [facility] RDW CV 17.6(H) 11.1 - 14.9 % [facility] RDW SD 64.1(H) 35.7 - 48.1 fL [facility] NRBC abs 0.00 0.00 - 0.01 K/cumm [facility] Blood 05/29/2025 7:20 PM CDT 05/29/2025 7:26 PM CDT Kel Nunn MD PhD LAB BLOOD ORDERABLES Final Result Performing Organization Address City/[facility]/ZIP Co de Phone Number [facility] [place] [address] * Uric acid (05/29/2025 7:20 PM CDT) Uric acid 3.4 3.0 - 8.0 mg/dL Blood 05/29/2025 7:20 PM CDT 05/29/2025 7:26 PM CDT Jerry Ray MD LAB BLOOD ORDERABLES Final Res ult Performing Organization Address [facility] Co de Phone Number [facility] [place] [address] * Phosphorus (05/29/2025 7:20 PM CDT) Phosphorus, pl 3.3 2.3 - 4.5 mg/dL Blood 05/29/2025 7:20 PM CDT 05/29/2025 7:26 PM CDT Kel Nunn MD PhD LAB BLOOD ORDERABLES Final Result Performing Organization Address City/[facility] Co de Phone Number [facility] [place] [address] * (ABNORMAL) Comprehensive metabolic panel (05/29/2025 7:20 PM CDT) Sodium 140 135 - 145 mmol/L Potassium, pl 5.4(H) 3.3 - 4.9 mmol/L [facility] Comment: Hemolyzed; Potassium value may be falsely elevated by as much as 0.6-1.0 mmol/L. Suggest redraw and reanalysis. Repeated and Verified Chloride 95(L) 97 - 110 mmol/L [facility] CO2 40(H) 22 - 32 mmol/L [facility] Anion gap 5 2 - 15 mmol/L [facility] BUN 29(H) 6 - 25 mg/dL [facility] Creatinine 0.70(L) 0.80 - 1.30 mg/dL [facility] Glucose 134 70 - 199 mg/dL [facility] Comment: Interpretive Data Fasting glucose >/= [...] 2022. Calcium 9.5 8.5 - 10.3 mg/dL [facility] Bilirubin, total 0.2 0.1 - 1.2 mg/dL [facility] Protein, pl 6.5 6.5 - 8.5 g/dL [facility] Albumin 3.2(L) 3.5 - 5.0 g/dL [facility] Alk phos 81 40 - 130 Units/L [facility] ALT 37 7 - 55 Units/L [facility] Comment:Reviewed AST 47 10 - 50 Units/L [facility] Comment: Hemolyzed; result may be falsely elevated Reviewed Blood 05/29/2025 7:20 PM CDT 05/29/2025 7:26 PM CDT us Kel Nunn MD PhD LAB BLOOD ORDERABLES Final Result [facility] [place] [address] * POCT glucose (05/29/2025 5:22 PM CDT) Glucose, POC 171 70 - 199 mg/dL Blood 05/29/2025 5:22 PM CDT 05/29/2025 5:22 PM CDT Jerry Ray MD LAB POCT ORDERABLES - DEVICE F inal Result Performing Organization Address City/[facility] Co de Phone Number [facility] [place] [address] * POCT glucose (05/29/2025 11:03 AM CDT) Glucose, POC 186 70 - 199 mg/dL Blood 05/29/2025 11:0 3 AM CDT 05/29/2025 11:03 AM CDT Jerry Ray MD LAB POCT ORDERABLES - DEVICE F inal Result Performing Organization Address [facility] de Phone Number [facility] [place] [address] * POCT glucose (05/29/2025 7:37 AM CDT) Glucose, POC 134 70 - 199 mg/dL Blood 05/29/2025 7:37 AM CDT 05/29/2025 7:37 AM CDT Jerry Ray MD LAB POCT ORDERABLES - DEVICE F inal Result Performing Organization Address City/[facility] de Phone Number [facility] [place] [address] * Potassium, whole blood (05/28/2025 11:16 PM CDT) Potassium, bld 4.9 3.3 - 4.9 mmol/L Blood 05/28/2025 11:1 6 PM CDT 05/28/2025 11:24 PM CDT Jerry Ray MD LAB BLOOD ORDERABLES Final Res ult [facility] [place] [address] * POCT glucose (05/28/2025 8:24 PM CDT) Glucose, POC 167 70 - 199 mg/dL Blood 05/28/2025 8:24 PM CDT 05/28/2025 8:24 PM CDT Jerry Ray MD LAB POCT ORDERABLES - DEVICE F inal Result Performing Organization Address [facility] Co de Phone Number [facility] [place] [address] * eGFR (05/28/2025 8:02 PM CDT) eGFR >90 >=60 mL/min/1. 73 m2 Comment: [...] interpretive data was last reviewed 2021. Blood 05/28/2025 8:02 PM CDT 05/28/2025 8:21 PM CDT us Kel Nunn MD PhD LAB BLOOD ORDERABLES Final Result [facility] [place] [address] * (ABNORMAL) Differential, auto (05/28/2025 8:02 PM CDT) Neutrophil abs 17.72(H) 1.50 - 6.50 K/cumm Imm gran abs 0.11(H) 0.00 - 0.10 K/cumm [facility] Lymphocyte abs 0.60(L) 0.80 - 3.30 K/cumm [facility] Monocyte abs 1.32(H) 0.20 - 0.80 K/cumm [facility] Eosinophil abs 0.00 0.00 - 0.50 K/cumm [facility] Basophil abs 0.02 0.00 - 0.10 K/cumm [facility] Neutrophil pct 89.6 % [facility] Comment: Interpretive Data Percent cell count reference ranges are not reported, since discordance with absolute values may lead to misinterpretation of CBC data. Current Interpretive Data was last revised on 2017. Imm gran pct 0.6 % [facility] Comment: Interpretive Data Percent cell count reference ranges are not reported, since discordance with absolute values may lead to misinterpretation of CBC data. Current Interpretive Data was last revised on 2017. Lymphocyte pct 3.0 % [facility] Comment: Interpretive Data Percent cell count reference ranges are not reported, since discordance with absolute values may lead to misinterpretation of CBC data. Current Interpretive Data was last revised on 2017. Monocyte pct 6.7 % [facility] Comment: Interpretive Data Percent cell count reference ranges are not reported, since discordance with absolute values may lead to misinterpretation of CBC data. Current Interpretive Data was last revised on 2017. Eosinophil pct 0.0 % [facility] Comment: Interpretive Data Percent cell count reference ranges are not reported, since discordance with absolute values may lead to misinterpretation of CBC data. Current Interpretive Data was last revised on 2017. Basophil pct 0.1 % [facility] Comment: Interpretive Data Percent cell count reference ranges are not reported, since discordance with absolute values may lead to misinterpretation of CBC data. Current Interpretive Data was last revised on 2017. Blood 05/28/2025 8:02 PM CDT 05/28/2025 8:21 PM CDT Kel Nunn MD PhD LAB BLOOD ORDERABLES Final Result [facility] [place] [address] * (ABNORMAL) CBC with auto differential (05/28/2025 8:02 PM CDT) WBC 19.77(H) 3.80 - 9.90 K/cumm Hgb 9.4(L) 13.0 - 17.5 g/dL [facility] Hct 29.1(L) 38.9 - 50.3 % [facility] Plt 342 150 - 400 K/cumm [facility] MPV 10.5 9.1 - 12.3 fL [facility] RBC 2.95(L) 4.30 - 5.80 M/cumm [facility] MCV 98.6(H) 81.3 - 96.4 fL [facility] MCH 31.9 27.1 - 33.3 pg [facility] MCHC 32.3 32.3 - 35.7 g/dL [facility] RDW CV 17.4(H) 11.1 - 14.9 % [facility] RDW SD 63.4(H) 35.7 - 48.1 fL [facility] NRBC abs 0.00 0.00 - 0.01 K/cumm [facility] Blood 05/28/2025 8:02 PM CDT 05/28/2025 8:21 PM CDT Kel Nunn MD PhD LAB BLOOD ORDERABLES Final Result [facility] [place] [address] * Uric acid (05/28/2025 8:02 PM CDT) [facility] Uric acid 3.3 3.0 - 8.0 mg/dL Blood 05/28/2025 8:02 PM CDT 05/28/2025 8:21 PM CDT Jerry Ray MD LAB BLOOD ORDERABLES Final Res ult Performing Organization Address City/[facility]/ZIP Co de Phone Number [facility] [place] [address] * Phosphorus (05/28/2025 8:02 PM CDT) [facility] Phosphorus, pl 3.2 2.3 - 4.5 mg/dL Comment:Hemolyzed; result ma y be falsely elevated Blood 05/28/2025 8:02 PM CDT 05/28/2025 8:21 PM CDT Kel Nunn MD PhD LAB BLOOD ORDERABLES Final Result Performing Organization Address City/[facility] Co de Phone Number [facility] [place] [address] * (ABNORMAL) Comprehensive metabolic panel (05/28/2025 8:02 PM CDT) [facility] Sodium 142 135 - 145 mmol/L Potassium, pl See Comment 3.3 - 4.9 mmol/L [facility] Comment:Credited; Hemolyzed Specimen Chloride 100 97 - 110 mmol/L [facility] CO2 35(H) 22 - 32 mmol/L [facility] Anion gap 7 2 - 15 mmol/L [facility] BUN 25 6 - 25 mg/dL [facility] Creatinine 0.62(L) 0.80 - 1.30 mg/dL [facility] Glucose 153 70 - 199 mg/dL [facility] Comment: Interpretive Data Fasting glucose >/= [...] interpretive data was last revised 2022. Calcium 9.3 8.5 - 10.3 mg/dL [facility] Bilirubin, total 0.2 0.1 - 1.2 mg/dL [facility] Protein, pl 6.9 6.5 - 8.5 g/dL [facility] Albumin 3.4(L) 3.5 - 5.0 g/dL [facility] Alk phos 83 40 - 130 Units/L [facility] Comment:Hemolyzed; result ma y be falsely decreased ALT See Comment 7 - 55 Units/L [facility] Comment:Credited; Hemolyzed Specimen AST See Comment 10 - 50 Units/L [facility] Comment:Credited; Hemolyzed Specimen Blood 05/28/2025 8:02 PM CDT 05/28/2025 8:21 PM CDT us Kel Nunn MD PhD LAB BLOOD ORDERABLES Final Result Performing Organization Address [facility]/ZIP Co de Phone Number [facility] [place] [address] * POCT glucose (05/28/2025 5:03 PM CDT) Glucose, POC 195 70 - 199 mg/dL Blood 05/28/2025 5:03 PM CDT 05/28/2025 5:03 PM CDT Jerry Ray MD LAB POCT ORDERABLES - DEVICE F inal Result Performing Organization Address [facility]/ZIP Co de Phone Number [facility] [place] [address] * Potassium, whole blood (05/28/2025 2:22 PM CDT) Pathologist [facility] Potassium, bld 4.9 3.3 - 4.9 mmol/L Blood 05/28/2025 2:22 PM CDT 05/28/2025 2:30 PM CDT Jerry Ray MD LAB BLOOD ORDERABLES Final Res ult Performing Organization Address [facility] [place] [address] * POCT glucose (05/28/2025 2:21 PM CDT) [facility] Glucose, POC 109 70 - 199 mg/dL Blood 05/28/2025 2:21 PM CDT 05/28/2025 2:21 PM CDT Jerry Ray MD LAB POCT ORDERABLES - DEVICE F inal Result Performing Organization Address [facility] [place] [address] * (ABNORMAL) POCT glucose (05/28/2025 12:16 PM CDT) [facility] Glucose, POC 212(H) 70 - 199 mg/dL Blood 05/28/2025 12:1 6 PM CDT 05/28/2025 12:16 PM CDT Jerry Ray MD LAB POCT ORDERABLES - DEVICE F inal Result Performing Organization Address [facility] [place] [address] * (ABNORMAL) POCT glucose (05/28/2025 11:03 AM CDT) Glucose, POC 234(H) 70 - 199 mg/dL Blood 05/28/2025 11:0 3 AM CDT 05/28/2025 11:03 AM CDT Jerry Ray MD LAB POCT ORDERABLES - DEVICE F inal Result Performing Organization Address [facility] Co de Phone Number [facility] [place] [address] * (ABNORMAL) POCT glucose (05/28/2025 9:50 AM CDT) Glucose, POC 314(H) 70 - 199 mg/dL Blood 05/28/2025 9:50 AM CDT 05/28/2025 9:50 AM CDT Jerry Ray MD LAB POCT ORDERABLES - DEVICE F inal Result Performing Organization Address [facility] de Phone Number [facility] [place] [address] * ECG 12 lead (05/28/2025 8:58 AM CDT) Pathologist [facility] Ventricular Rate EKG/Min 102 BPM [facility] Atrial Rate 102 BPM [facility] VA-Interval (MSEC) 124 ms [facility] QRS-Interval (MSEC) 94 ms [facility] QT-Interval (MSEC) 330 ms [facility] QTc 430 ms [facility] P [place] 83 degrees [facility] R [place] 70 degrees [facility] T [place] 74 degrees [facility] Diagnosis Sinus tachycardia Possible Left atrial enlargement Incomplete right bundle branch block Borderline ECG When compared with ECG of 22-APR-2025 22:37, No significant change was found Confirmed by NORA VILLA M.D ([id number]) on 05/28/2025 3:03:35 PM [facility] 05/28/2025 8:58 AM CDT 05/28/2025 3:03 PM CDT Jerry Ray MD ECG ORDERABLES Final Result [facility] * (ABNORMAL) Potassium, whole blood (05/28/2025 8:20 AM CDT) Potassium, bld 5.4(H) 3.3 - 4.9 mmol/L Blood 05/28/2025 8:20 AM CDT 05/28/2025 8:47 AM CDT Jerry Ray MD LAB BLOOD ORDERABLES Final Res ult Performing Organization Address [facility] Co de Phone Number [facility] [place] [address] * eGFR (05/27/2025 11:17 PM CDT) eGFR >90 >=60 mL/min/1. 73 m2 Comment: [...] of Race in Diagnosing Kidney Disease, JASN 202). The CKD-EPI equation should not be used for patients with unstable renal function and has not been validated in children and those over 70. Current interpretive data was last reviewed 2021. Blood 05/27/2025 11:1 7 PM CDT 05/27/2025 11:56 PM CDT Kel Nunn MD PhD LAB BLOOD ORDERABLES Final Result [facility] [place] [address] * (ABNORMAL) Differential, auto (05/27/2025 11:17 PM CDT) Neutrophil abs 13.93(H) 1.50 - 6.50 K/cumm Imm gran abs 0.06 0.00 - 0.10 K/cumm [facility] Lymphocyte abs 0.25(L) 0.80 - 3.30 K/cumm [facility] Monocyte abs 0.12(L) 0.20 - 0.80 K/cumm [facility] Eosinophil abs 0.00 0.00 - 0.50 K/cumm [facility] Basophil abs 0.01 0.00 - 0.10 K/cumm [facility] Neutrophil pct 97.0 % [facility] Comment: Interpretive Data Percent cell count reference ranges are not reported, since discordance with absolute values may lead to misinterpretation of CBC data. Current Interpretive Data was last revised on 2017. Imm gran pct 0.4 % [facility] Comment: Interpretive Data Percent cell count reference ranges are not reported, since discordance with absolute values may lead to misinterpretation of CBC data. Current Interpretive Data was last revised on 2017. Lymphocyte pct 1.7 % [facility] Comment: Interpretive Data Percent cell count reference ranges are not reported, since discordance with absolute values may lead to misinterpretation of CBC data. Current Interpretive Data was last revised on 2017. Monocyte pct 0.8 % [facility] Comment: Interpretive Data Percent cell count reference ranges are not reported, since discordance with absolute values may lead to misinterpretation of CBC data. Current Interpretive Data was last revised on 2017. Eosinophil pct 0.0 % [facility] Comment: Interpretive Data Percent cell count reference ranges are not reported, since discordance with absolute values may lead to misinterpretation of CBC data. Current Interpretive Data was last revised on 2017. Basophil pct 0.1 % [facility] Comment: Interpretive Data Percent cell count reference ranges are not reported, since discordance with absolute values may lead to misinterpretation of CBC data. Current Interpretive Data was last revised on 2017. Blood 05/27/2025 11:1 7 PM CDT 05/27/2025 11:57 PM CDT Kel Nunn MD PhD LAB BLOOD ORDERABLES Final Result Performing Organization Address City/[facility] Co de Phone Number [facility] [place] [address] * (ABNORMAL) CBC with auto differential (05/27/2025 11:17 PM CDT) WBC 14.37(H) 3.80 - 9.90 K/cumm Hgb 8.3(L) 13.0 - 17.5 g/dL [facility] Hct 26.4(L) 38.9 - 50.3 % [facility] Plt 311 150 - 400 K/cumm [facility] MPV 10.0 9.1 - 12.3 fL [facility] RBC 2.65(L) 4.30 - 5.80 M/cumm [facility] MCV 99.6(H) 81.3 - 96.4 fL [facility] MCH 31.3 27.1 - 33.3 pg [facility] MCHC 31.4(L) 32.3 - 35.7 g/dL [facility] RDW CV 17.7(H) 11.1 - 14.9 % [facility] RDW SD 64.4(H) 35.7 - 48.1 fL [facility] NRBC abs 0.00 0.00 - 0.01 K/cumm [facility] Blood 05/27/2025 11:1 7 PM CDT 05/27/2025 11:57 PM CDT Kel Nunn MD PhD LAB BLOOD ORDERABLES Final Result Performing Organization Address City/[facility]/ZIP Co de Phone Number [facility] [place] [address] * Phosphorus (05/27/2025 11:17 PM CDT) Phosphorus, pl 3.0 2.3 - 4.5 mg/dL Blood 05/27/2025 11:1 7 PM CDT 05/27/2025 11:56 PM CDT Kel Nunn MD PhD LAB BLOOD ORDERABLES Final Result [facility] [place] [address] * (ABNORMAL) Comprehensive metabolic panel (05/27/2025 11:17 PM CDT) Pathologist [facility] Sodium 140 135 - 145 mmol/L Potassium, pl 5.3(H) 3.3 - 4.9 mmol/L [facility] Chloride 101 97 - 110 mmol/L [facility] CO2 34(H) 22 - 32 mmol/L [facility] Anion gap 5 2 - 15 mmol/L [facility] BUN 23 6 - 25 mg/dL [facility] Creatinine 0.75(L) 0.80 - 1.30 mg/dL [facility] Glucose 247(H) 70 - 199 mg/dL [facility] Comment: Interpretive Data Fasting glucose >/= [...] interpretive data was last revised 2022. Calcium 8.5 8.5 - 10.3 mg/dL [facility] Bilirubin, total 0.2 0.1 - 1.2 mg/dL [facility] Protein, pl 6.0(L) 6.5 - 8.5 g/dL [facility] Albumin 3.1(L) 3.5 - 5.0 g/dL [facility] Alk phos 83 40 - 130 Units/L [facility] ALT 28 7 - 55 Units/L [facility] AST 30 10 - 50 Units/L [facility] Blood 05/27/2025 11:1 7 PM CDT 05/27/2025 11:56 PM CDT Kel Nunn MD PhD LAB BLOOD ORDERABLES Final Result [facility] [place] [address] * FL Modified Barium Swallow W Video (05/27/2025 10:21 AM CDT) Anatomical Region Laterality Modality Head and Neck N/A Radio Fluoroscop y 05/27/2025 10:4 8 AM CDT Impressions 05/27/2025 12:30 PM CDT The swallowing mechanism is normal; see above comments. Please refer to the Speech Pathology procedure note for safe swallow recommendations as well as additional information regarding the oral-pharyngeal swallow function, plan of care, and recommended follow up. Dictated by: Darrin Ramirez M.D. The radiology attending physician has personally reviewed this study, and had reviewed and/or edited this written report and agrees with it. Electronically signed by: Yana Méndez M.D. Narrative 05/27/2025 12:30 PM CDT EXAMINATION: MODIFIED BARIUM SWALLOW HISTORY: Dysphagia. TECHNIQUE: This procedure was completed in conjunction with a Speech Language Pathologist. The patient was given barium of multiple different consistencies to swallow. Video fluoroscopy was employed during the exam. FINDINGS: Oral-pharyngeal swallow function is mostly within functional limits. Penetration: Yes There is penetration of thin liquid. Penetration is not sensed. The penetrated material is not cleared. Aspiration: No Residue:Yes There is oral-pharyngeal residue of thin liquid, puree, and solids. Residue is sensed. The residual material is cleared. Other comments: None Procedure Note Yana Méndez MD - 05/27/2025 EXAMINATION: MODIFIED BARIUM SWALLOW HISTORY: Dysphagia. TECHNIQUE: This procedure was completed in conjunction with a Speech Language Pathologist. The patient was given barium of multiple different consistencies to swallow. Video fluoroscopy was employed during the exam. FINDINGS: Oral-pharyngeal swallow function is mostly within functional limits. Penetration: Yes There is penetration of thin liquid. Penetration is not sensed. The penetrated material is not cleared. Aspiration: No Residue:Yes There is oral-pharyngeal residue of thin liquid, puree, and solids. Residue is sensed. The residual material is cleared. Other comments: None IMPRESSION: The swallowing mechanism is normal; see above comments. Please refer to the Speech Pathology procedure note for safe swallow recommendations as well as additional information regarding the oral-pharyngeal swallow function, plan of care, and recommended follow up. Dictated by: Darrin Ramirez M.D. The radiology attending physician has personally reviewed this study, and had reviewed and/or edited this written report and agrees with it. Electronically signed by: Yana Méndez M.D. Jerry Ray MD IMG FLUOROSCOPY PROCEDURES Fin al Result * INSPECTOR [employer]ILER Evaluate and Treat (VFSS) (05/27/2025 10:10 AM CDT) Narrative Ayala Ortiz INSPECTOR BOILER - 05/27/2025 10:10 AM CDT Ayala Ortiz SLP 05/27/2025 11:25 AM Speech-Language Pathology: Videofluoroscopic Study of Swallow (VFSS/MBS) HPI/PMH 75 y.o. male with PMH of SCLC, CAD s/p PCI (2019), COPD on 2L NC, GERD, BPH who presents as a direct admit for the next cycle of chemotherapy. Respiratory/Intubation Status:2L NC Imaging: Chest CT 05/19-Some secretions in the trachea and right and left bronchi. Correlate for aspiration. Attention at follow-up. The index nodule in the right upper lobe is grossly stable allowing for differences in slice selection, measuring approximately 10 mm. Grossly stable index nodule in the left upper lobe anteriorly (axial image 22). The consolidation in the anterior left upper lobe persists but appears slightly decreased in size. This appearance may be partially attributable to differences in slice selection. New consolidation in the lingula. Precautions: Fall PLOF: MBS 04/21/25-Pt accepted PO trials of thin liquid, nectar thick liquid, puree, and solids as well as a barium pill. Suspect weakness impacting bolus drive and overall swallow efficiency. Of note, shadowing noted at level of vocal folds throughout study is not believed to be aspiration. High-moderated depth penetration of thin and nectar thick liquid that intermittently clears with force of swallow; no aspiration observed. No penetration/aspiration observed across trials of puree or solids. Barium pill appeared to get stuck in the valleculae despite multiple liquid washes/repeat swallows. When it eventually cleared valleculae it was moderately penetrated and then independently cleared. Trace-mild valleculae/pyriform sinus residue observed across trials; puree and solid residue cleared more efficiently with liquid wash. Of note, pt intermittently throat clearing throughout evaluation; this did not appear to indicate airway invasion. Current Diet Order: Regular diet/thin liquid Baseline Diet: Regular diet/thin liquid General Information Sim Carty 05/27/25 INSPECTOR BOILER Received On: 05/27/25 General Observations: 723[address]. Pt alert, seated upright in fluoro chair upon arrival; agreeable to evaluation. Daughter present in the room. Cooperative throughout, following all commands. Calcification noted at level of vocal folds. Possible CP bar at C5. Reason for Referral:To further assess oral-pharyngeal swallow function Pain Score: 0 - No pain If pain >4, was RN notified? N/A Patient Stated Goal/Comments: none generated Clinical Impression & Professional Recommendations Diet Solids Recommendation: Regular Diet Liquids Recommendations: Thin/regular Recommended Form of Medications: Whole, Crushed, With puree Compensatory Strategies/Modifications: Single sips, Small bites, Slow rate, Throat clear + repeat swallow (every few sips) Postural Recommendations: Upright, Upright 30 min after meal Assistance with feeding/swallowing: Setup only Specialty Instructions: Thorough oral care 2-3x/day including teeth brushing (gums and tongue) with suction while upright at 90 and with 100% assistance to improve the oral biome and reduce the risk of aspiration related complications (i.e., PNA) Overall Clinical Impression/Additional Information: Similar presentation to previous MBS. Oral-pharyngeal swallow function found to be WFL. Pt accepted PO trials of thin liquid, nectar thick liquid, puree, and solids. Timely mastication of solids with mild amounts of residue remaining in oral cavity. Oral residue clears with a repeat swallow. Some lingual pumping noted to aid in bolus prep/transit. Observed moderate depth penetration x1-2 of thin liquid, which reduces to trace high penetration with force of swallow. High-moderate depth penetration is normal variant for pt age. Residue remaining in vestibule is eventually cleared with a cued throat clear. No aspiration observed across trials of thin liquid. No penetration/aspiration observed across trials of nectar thick liquid, puree, or solids. Trace pharyngeal residue observed across consistencies and clears with a repeat swallow or liquid wash. Of note, pt throat clearing in absence of aspiration. Based on today's evaluation, pt appropriate to remain on baseline diet. No further skilled ST swallowing services indicated at this time. ST to complete orders. Assessment Details & Results Purpose and Procedure of Videofluoroscopic Study of Swallow: Videofluoroscopic Study of Swallow completed to assess oropharyngeal swallow function and safety/efficiency of the swallow so that diet recommendations can be made. This test is completed in conjunction with Radiology. Results of this test are indicative of performance at the time of the exam. Standard procedure is in lateral view at 90 degrees. Administered consistencies contain barium product. Thin Liquids: Laryngeal Penetration: Present Aspiration Present: No Penetration Aspiration Scale-Thin: 3-Material enters the airway, remains above the vocal folds and is not ejected from the airway [place] Thickened Liquids: Laryngeal Penetration: None Aspiration Present: No Penetration Aspiration Scale-[place]: 1-Material does not enter airway Purees: Laryngeal Penetration: None Aspiration Present: No Penetration Aspiration Scale-Puree: 1-Material does not enter airway Solids: Laryngeal Penetration: None Aspiration Present: No Penetration Aspiration Scale-Solids: 1-Material does not enter airway MBSImp: MBSImp Results: Lip closure : 0-No labial escape Tongue Control with Bolus Hold: 2-Posterior escape of less than half of bolus Bolus Preparation/Mastication : 0-Timely and efficient chewing and mashing Bolus Transport/Lingual Motion : 3-Repetitive/disorganized tongue motion Oral Residue: 2-Residue collection on oral structures Initiation of Pharyngeal Swallow : 1-Bolus head in valleculae Soft Palate : 0-No bolus between soft palate and pharyngeal wall Laryngeal Elevation : 0-Complete superior movement of thyroid cartilage with complete approximation of arytenoids to epiglottic petiole Anterior Hyoid Excursion: 0-Complete anterior movement Epiglottic Movement: 0-Complete inversion Laryngeal Vestibular Closure: 0-Complete, no air/contrast in the laryngeal vestibule (delayed) Pharyngeal Stripping Wave: 0-Present and complete Pharyngeal Contraction (AP view only): Not assessed, No AP view Pharyngoesophageal Segment Opening : 0-Complete distention and complete duration, no obstruction of flow Tongue Base Retraction : 1-Trace column of contrast or air between tongue base and posterior pharyngeal wall (normal variant) Pharyngeal Residue : 1-Trace residue within or on pharyngeal structures (normal variant) Esophageal Clearance (upright position): Not assessed, No AP view Dysphagia Outcome and Severity Scale: Dysphagia Outcomes and Severity Scale: 6 Modified independence Levels 1 & 2 on the ARNOLD indicate need for nonoral nutrition. Treatment Treatment was not provided this date. Please reference care plan for treatment goals and details, if indicated. Plan INSPECTOR BOILER Frequency of Services during current admission: Discharge from this Service INSPECTOR BOILER Recommendation (Add'l Services): No further INSPECTOR BOILER indicated Next Visit Plan: No further ST warranted Additional Referrals: none Discharge Summary Statement If this is the last swallow therapy visit, this serves as the discharge summary. us Jerry Ray MD INSPECTOR BOILER ORDERABLES Final Result * INSPECTOR BOILER Evaluation and Treatment (05/27/2025 10:10 AM CDT) Narrative Ayala Ortiz SLP - 05/27/2025 10:10 AM CDT Ayala Ortiz SLP 05/27/2025 11:25 AM Speech-Language Pathology: Videofluoroscopic Study of Swallow (VFSS/MBS) HPI/PMH 75 y.o. male with PMH of SCLC, CAD s/p PCI (2019), COPD on 2L NC, GERD, BPH who presents as a direct admit for the next cycle of chemotherapy. Respiratory/Intubation Status:2L NC Imaging: Chest CT 05/19-Some secretions in the trachea and right and left bronchi. Correlate for aspiration. Attention at follow-up. The index nodule in the right upper lobe is grossly stable allowing for differences in slice selection, measuring approximately 10 mm. Grossly stable index nodule in the left upper lobe anteriorly (axial image 22). The consolidation in the anterior left upper lobe persists but appears slightly decreased in size. This appearance may be partially attributable to differences in slice selection. New consolidation in the lingula. Precautions: Fall PLOF: MBS 04/21/25-Pt accepted PO trials of thin liquid, nectar thick liquid, puree, and solids as well as a barium pill. Suspect weakness impacting bolus drive and overall swallow efficiency. Of note, shadowing noted at level of vocal folds throughout study is not believed to be aspiration. High-moderated depth penetration of thin and nectar thick liquid that intermittently clears with force of swallow; no aspiration observed. No penetration/aspiration observed across trials of puree or solids. Barium pill appeared to get stuck in the valleculae despite multiple liquid washes/repeat swallows. When it eventually cleared valleculae it was moderately penetrated and then independently cleared. Trace-mild valleculae/pyriform sinus residue observed across trials; puree and solid residue cleared more efficiently with liquid wash. Of note, pt intermittently throat clearing throughout evaluation; this did not appear to indicate airway invasion. Current Diet Order: Regular diet/thin liquid Baseline Diet: Regular diet/thin liquid General Information Sim Carty 05/27/25 INSPECTOR BOILER Received On: 05/27/25 General Observations: 37010. Pt alert, seated upright in fluoro chair upon arrival; agreeable to evaluation. Daughter present in the room. Cooperative throughout, following all commands. Calcification noted at level of vocal folds. Possible CP bar at C5. Reason for Referral:To further assess oral-pharyngeal swallow function Pain Score: 0 - No pain If pain >4, was RN notified? N/A Patient Stated Goal/Comments: none generated Clinical Impression & Professional Recommendations Diet Solids Recommendation: Regular Diet Liquids Recommendations: Thin/regular Recommended Form of Medications: Whole, Crushed, With puree Compensatory Strategies/Modifications: Single sips, Small bites, Slow rate, Throat clear + repeat swallow (every few sips) Postural Recommendations: Upright, Upright 30 min after meal Assistance with feeding/swallowing: Setup only Specialty Instructions: Thorough oral care 2-3x/day including teeth brushing (gums and tongue) with suction while upright at 90 and with 100% assistance to improve the oral biome and reduce the risk of aspiration related complications (i.e., PNA) Overall Clinical Impression/Additional Information: Similar presentation to previous MBS. Oral-pharyngeal swallow function found to be WFL. Pt accepted PO trials of thin liquid, nectar thick liquid, puree, and solids. Timely mastication of solids with mild amounts of residue remaining in oral cavity. Oral residue clears with a repeat swallow. Some lingual pumping noted to aid in bolus prep/transit. Observed moderate depth penetration x1-2 of thin liquid, which reduces to trace high penetration with force of swallow. High-moderate depth penetration is normal variant for pt age. Residue remaining in vestibule is eventually cleared with a cued throat clear. No aspiration observed across trials of thin liquid. No penetration/aspiration observed across trials of nectar thick liquid, puree, or solids. Trace pharyngeal residue observed across consistencies and clears with a repeat swallow or liquid wash. Of note, pt throat clearing in absence of aspiration. Based on today's evaluation, pt appropriate to remain on baseline diet. No further skilled ST swallowing services indicated at this time. ST to complete orders. Assessment Details & Results Purpose and Procedure of Videofluoroscopic Study of Swallow: Videofluoroscopic Study of Swallow completed to assess oropharyngeal swallow function and safety/efficiency of the swallow so that diet recommendations can be made. This test is completed in conjunction with Radiology. Results of this test are indicative of performance at the time of the exam. Standard procedure is in lateral view at 90 degrees. Administered consistencies contain barium product. Thin Liquids: Laryngeal Penetration: Present Aspiration Present: No Penetration Aspiration Scale-Thin: 3-Material enters the airway, remains above the vocal folds and is not ejected from the airway [place] Thickened Liquids: Laryngeal Penetration: None Aspiration Present: No Penetration Aspiration Scale-[place]: 1-Material does not enter airway Purees: Laryngeal Penetration: None Aspiration Present: No Penetration Aspiration Scale-Puree: 1-Material does not enter airway Solids: Laryngeal Penetration: None Aspiration Present: No Penetration Aspiration Scale-Solids: 1-Material does not enter airway MBSImp: MBSImp Results: Lip closure : 0-No labial escape Tongue Control with Bolus Hold: 2-Posterior escape of less than half of bolus Bolus Preparation/Mastication : 0-Timely and efficient chewing and mashing Bolus Transport/Lingual Motion : 3-Repetitive/disorganized tongue motion Oral Residue: 2-Residue collection on oral structures Initiation of Pharyngeal Swallow : 1-Bolus head in valleculae Soft Palate : 0-No bolus between soft palate and pharyngeal wall Laryngeal Elevation : 0-Complete superior movement of thyroid cartilage with complete approximation of arytenoids to epiglottic petiole Anterior Hyoid Excursion: 0-Complete anterior movement Epiglottic Movement: 0-Complete inversion Laryngeal Vestibular Closure: 0-Complete, no air/contrast in the laryngeal vestibule (delayed) Pharyngeal Stripping Wave: 0-Present and complete Pharyngeal Contraction (AP view only): Not assessed, No AP view Pharyngoesophageal Segment Opening : 0-Complete distention and complete duration, no obstruction of flow Tongue Base Retraction : 1-Trace column of contrast or air between tongue base and posterior pharyngeal wall (normal variant) Pharyngeal Residue : 1-Trace residue within or on pharyngeal structures (normal variant) Esophageal Clearance (upright position): Not assessed, No AP view Dysphagia Outcome and Severity Scale: Dysphagia Outcomes and Severity Scale: 6 Modified independence Levels 1 & 2 on the ARNOLD indicate need for nonoral nutrition. Treatment Treatment was not provided this date. Please reference care plan for treatment goals and details, if indicated. Plan INSPECTOR BOILER Frequency of Services during current admission: Discharge from this Service INSPECTOR BOILER Recommendation (Add'l Services): No further INSPECTOR BOILER indicated Next Visit Plan: No further ST warranted Additional Referrals: none Discharge Summary Statement If this is the last swallow therapy visit, this serves as the discharge summary. Kel Nunn MD PhD INSPECTOR BOILER ORDERABLES Final Resul t * eGFR (05/26/2025 11:09 PM CDT) eGFR >90 >=60 mL/min/1. 73 m2 Comment: [...] interpretive data was last reviewed 2021. Blood 05/26/2025 11:0 9 PM CDT 05/26/2025 11:47 PM CDT Kel Nunn MD PhD LAB BLOOD ORDERABLES Final Result [facility] [place] [address] * (ABNORMAL) Differential, auto (05/26/2025 11:09 PM CDT) Neutrophil abs 18.38(H) 1.50 - 6.50 K/cumm Imm gran abs 0.15(H) 0.00 - 0.10 K/cumm [facility] Lymphocyte abs 0.94 0.80 - 3.30 K/cumm [facility] Monocyte abs 1.83(H) 0.20 - 0.80 K/cumm [facility] Eosinophil abs 0.05 0.00 - 0.50 K/cumm [facility] Basophil abs 0.04 0.00 - 0.10 K/cumm [facility] Neutrophil pct 85.9 % [facility] Comment: Interpretive Data Percent cell count reference ranges are not reported, since discordance with absolute values may lead to misinterpretation of CBC data. Current Interpretive Data was last revised on 2017. Imm gran pct 0.7 % [facility] Comment: Interpretive Data Percent cell count reference ranges are not reported, since discordance with absolute values may lead to misinterpretation of CBC data. Current Interpretive Data was last revised on 2017. Lymphocyte pct 4.4 % [facility] Comment: Interpretive Data Percent cell count reference ranges are not reported, since discordance with absolute values may lead to misinterpretation of CBC data. Current Interpretive Data was last revised on 2017. Monocyte pct 8.6 % [facility] Comment: Interpretive Data Percent cell count reference ranges are not reported, since discordance with absolute values may lead to misinterpretation of CBC data. Current Interpretive Data was last revised on 2017. Eosinophil pct 0.2 % [facility] Comment: Interpretive Data Percent cell count reference ranges are not reported, since discordance with absolute values may lead to misinterpretation of CBC data. Current Interpretive Data was last revised on 2017. Basophil pct 0.2 % [facility] Comment: Interpretive Data Percent cell count reference ranges are not reported, since discordance with absolute values may lead to misinterpretation of CBC data. Current Interpretive Data was last revised on 2017. Blood 05/26/2025 11:0 9 PM CDT 05/26/2025 11:47 PM CDT Kel Nunn MD PhD LAB BLOOD ORDERABLES Final Result Performing Organization Address [facility] Co de Phone Number [facility] Department [place] [address] * (ABNORMAL) CBC with auto differential (05/26/2025 11:09 PM CDT) Pathologist [facility] [place] WBC 21.39(H) 3.80 - 9.90 K/cumm Hgb 7.8(L) 13.0 - 17.5 g/dL [facility] Hct 24.0(L) 38.9 - 50.3 % [facility] Plt 319 150 - 400 K/cumm [facility] MPV 9.7 9.1 - 12.3 fL [facility] RBC 2.45(L) 4.30 - 5.80 M/cumm [facility] MCV 98.0(H) 81.3 - 96.4 fL [facility] MCH 31.8 27.1 - 33.3 pg [facility] MCHC 32.5 32.3 - 35.7 g/dL [facility] RDW CV 17.7(H) 11.1 - 14.9 % [facility] RDW SD 64.1(H) 35.7 - 48.1 fL [facility] NRBC abs 0.00 0.00 - 0.01 K/cumm [facility] Blood 05/26/2025 11:0 9 PM CDT 05/26/2025 11:47 PM CDT Kel Nunn MD PhD LAB BLOOD ORDERABLES Final Result Performing Organization Address City/[facility]/ZIP Co de Phone Number [facility] Department [place] [address] * aPTT (05/26/2025 11:09 PM CDT) aPTT 26 26 - 38 sec Comment: Interpretive Data Heparin therapeutic range: 66.0 - 100.0 seconds. Range based on correlation with therapeutic heparin activity range of 0.3 - 0.7 Units/mL. Current interpretive data was last revised on 2023. Blood 05/26/2025 11:0 9 PM CDT 05/26/2025 11:54 PM CDT Kel Nunn MD PhD LAB BLOOD ORDERABLES Final Result Performing Organization Address [facility] de Phone Number [facility] [place] [address] * Protime-INR (05/26/2025 11:09 PM CDT) Pathologist [facility] [place] PT 12.2 10.2 - 13.5 sec INR 1.08 0.90 - 1.20 [facility] Comment: Interpretive data Oral anticoagulant therapeutic ranges: Venous thromboembolism prophylaxis or treatment: 2.0-3.0 CARDIOLOGY Standard range: 2.0-3.0 High-intensity range: 2.5-3.5 Refer to indication-specific guidelines for appropriate target ranges for prosthetic heart valve replacement. Current interpretive data was last revised on 2019. Blood 05/26/2025 11:0 9 PM CDT 05/26/2025 11:54 PM CDT Result [facility] Kel Nunn MD PhD LAB BLOOD ORDERABLES Final Result Performing Organization Address [facility] de Phone Number [facility] [place] [place] [address] * Type and screen (05/26/2025 11:09 PM CDT) Pathologist [facility] [place] ABO Rh A Positive Char, indirect Negative [facility] Blood 05/26/2025 11:0 9 PM CDT 05/26/2025 11:45 PM CDT Narrative [facility] - 05/27/2025 12:41 AM CDT Has the patient had Daratumumab or Isatuximab in the past 6 months?->Unknown Kel Nunn MD PhD LAB BLOOD BANK TEST ORDERAB LES Final Result Performing Organization Address [facility] Co de Phone Number [facility] [place] [address] * Uric acid (05/26/2025 11:09 PM CDT) Uric acid 4.2 3.0 - 8.0 mg/dL Blood 05/26/2025 11:0 9 PM CDT 05/26/2025 11:47 PM CDT Kel Nunn MD PhD LAB BLOOD ORDERABLES Final Result Performing Organization Address [facility] de Phone Number [facility] [place] [address] * Phosphorus (05/26/2025 11:09 PM CDT) Phosphorus, pl 2.6 2.3 - 4.5 mg/dL Blood 05/26/2025 11:0 9 PM CDT 05/26/2025 11:47 PM CDT Kel Nunn MD PhD LAB BLOOD ORDERABLES Final Result Performing Organization Address [facility] Co de Phone Number [facility] Department [place] [address] * (ABNORMAL) Lactate dehydrogenase (LD) (05/26/2025 11:09 PM CDT) Lactate dehydrogenase (LDH) 328(H) 100 - 250 Units/L Blood 05/26/2025 11:0 9 PM CDT 05/26/2025 11:47 PM CDT Kel Nunn MD PhD LAB BLOOD ORDERABLES Final Result [facility] [place] [address] * (ABNORMAL) Comprehensive metabolic panel (05/26/2025 11:09 PM CDT) Sodium 137 135 - 145 mmol/L Potassium, pl 4.6 3.3 - 4.9 mmol/L [facility] Chloride 96(L) 97 - 110 mmol/L [facility] CO2 36(H) 22 - 32 mmol/L [facility] Anion gap 5 2 - 15 mmol/L [facility] BUN 29(H) 6 - 25 mg/dL [facility] Creatinine 0.76(L) 0.80 - 1.30 mg/dL [facility] Glucose 133 70 - 199 mg/dL [facility] Comment: Interpretive Data Fasting glucose >/= [...] interpretive data was last revised 2022. Calcium 8.5 8.5 - 10.3 mg/dL [facility] Bilirubin, total 0.2 0.1 - 1.2 mg/dL [facility] Protein, pl 5.7(L) 6.5 - 8.5 g/dL [facility] Albumin 3.0(L) 3.5 - 5.0 g/dL [facility] Alk phos 80 40 - 130 Units/L [facility] ALT 30 7 - 55 Units/L [facility] AST 26 10 - 50 Units/L [facility] Blood 05/26/2025 11:0 9 PM CDT 05/26/2025 11:47 PM CDT Kel Nunn MD PhD LAB BLOOD ORDERABLES Final Result [facility] [place] [address] * MRI Brain Tumor W WO Contrast (05/26/2025 6:49 PM CDT) Anatomical Region Laterality Modality Head and Neck N/A Magnetic Resonan ce 05/27/2025 10:0 8 AM CDT Impressions 05/27/2025 12:51 PM CDT Persistent bilateral small foci of diffusion restriction and subtle peripheral enhancement seen in the bilateral periventricular white matter with 2 new foci of restricted diffusion in right centrum semi-ovale and right cerebellum. Differential diagnosis include progressing early metastasis versus subacute infarcts. Short interval (1-month) follow-up with contrast-enhanced MRI is recommended. Dictated by: Isamar Sierra MD The radiology attending physician has personally reviewed this study, and had reviewed and/or edited this written report and agrees with it. Electronically signed by: Uriel Perera MD Narrative 05/27/2025 12:51 PM CDT EXAMINATION: Magnetic resonance imaging (MRI) of the brain and brainstem without and with contrast HISTORY: 75 years old. Small cell lung cancer. On chemotherapy. Headache. TECHNIQUE: Multiplanar multi-weighted MRI of the brain and brainstem was performed without and with intravenous contrast using the brain tumor protocol. This included high-resolution 3D T1-weighted images without and with intravenous contrast and dynamic susceptibility contrast data for perfusion analysis. Contrast information: 10 mL Gadoterate Meglumine IV COMPARISON: MRI brain dated March 2025. FINDINGS: small focus in the left posterior periventricular region with high signal on DWI with associated faint enhancement seen on image 43 of sequence 5. The diffusion signal is decreasing when compared to prior MRI of 04/09/2025 . Redemonstration of the punctate focus of diffusion restriction in the right periventricular frontal lobe seen on image 42 of sequence 5. New focus of restricted diffusion seen in the right centrum semiovale on image 41 of sequence 5 and in the right cerebellar lobe seen on image 56 of sequence 5 with associated focal enhancement seen on sequence 15 image 24. Bilateral parieto-occipital lobe encephalomalacia, worse on the left. Focal microhemorrhage seen in the posterior aspect of the right cerebellar lobe. The superior sagittal sinus demonstrates normal venous flow. The corpus callosum is normal in shape and signal intensity. The pituitary and sella are normal. The brainstem and craniocervical junction are unremarkable. The ventricles are normal in size and position without evidence of hydrocephalus. The paranasal sinuses are normal. Left mastoid effusion. Normal right mastoid. The orbits appear normal. Normal flow voids are demonstrated in the carotid arteries and basilar artery. Procedure Note Uriel Perera MD PhD - 05/27/2025 EXAMINATION: Magnetic resonance imaging (MRI) of the brain and brainstem without and with contrast HISTORY: 75 years old. Small cell lung cancer. On chemotherapy. Headache. TECHNIQUE: Multiplanar multi-weighted MRI of the brain and brainstem was performed without and with intravenous contrast using the brain tumor protocol. This included high-resolution 3D T1-weighted images without and with intravenous contrast and dynamic susceptibility contrast data for perfusion analysis. Contrast information: 10 mL Gadoterate Meglumine IV COMPARISON: MRI brain dated March 2025. FINDINGS: small focus in the left posterior periventricular region with high signal on DWI with associated faint enhancement seen on image 43 of sequence 5. The diffusion signal is decreasing when compared to prior MRI of 04/09/2025 . Redemonstration of the punctate focus of diffusion restriction in the right periventricular frontal lobe seen on image 42 of sequence 5. New focus of restricted diffusion seen in the right centrum semiovale on image 41 of sequence 5 and in the right cerebellar lobe seen on image 56 of sequence 5 with associated focal enhancement seen on sequence 15 image 24. Bilateral parieto-occipital lobe encephalomalacia, worse on the left. Focal microhemorrhage seen in the posterior aspect of the right cerebellar lobe. The superior sagittal sinus demonstrates normal venous flow. The corpus callosum is normal in shape and signal intensity. The pituitary and sella are normal. The brainstem and craniocervical junction are unremarkable. The ventricles are normal in size and position without evidence of hydrocephalus. The paranasal sinuses are normal. Left mastoid effusion. Normal right mastoid. The orbits appear normal. Normal flow voids are demonstrated in the carotid arteries and basilar artery. IMPRESSION: Persistent bilateral small foci of diffusion restriction and subtle peripheral enhancement seen in the bilateral periventricular white matter with 2 new foci of restricted diffusion in right centrum semi-ovale and right cerebellum. Differential diagnosis include progressing early metastasis versus subacute infarcts. Short interval (1-month) follow-up with contrast-enhanced MRI is recommended. Dictated by: Isamar Sierra MD The radiology attending physician has personally reviewed this study, and had reviewed and/or edited this written report and agrees with it. Electronically signed by: Uriel Perera MD us Kel Nunn MD PhD IMG MRI PROCEDURES Final Re sult * (ABNORMAL) CBC without differential (05/26/2025 12:08 PM CDT) WBC 43.39(H) 3.80 - 9.90 K/cumm Hgb 8.8(L) 13.0 - 17.5 g/dL [facility] Hct 27.6(L) 38.9 - 50.3 % [facility] Plt 386 150 - 400 K/cumm [facility] MPV 9.7 9.1 - 12.3 fL [facility] RBC 2.80(L) 4.30 - 5.80 M/cumm [facility] MCV 98.6(H) 81.3 - 96.4 fL [facility] MCH 31.4 27.1 - 33.3 pg [facility] MCHC 31.9(L) 32.3 - 35.7 g/dL [facility] RDW CV 17.5(H) 11.1 - 14.9 % [facility] RDW SD 63.1(H) 35.7 - 48.1 fL [facility] NRBC abs 0.00 0.00 - 0.01 K/cumm [facility] Blood 05/26/2025 12:0 8 PM CDT 05/26/2025 12:39 PM CDT Narrative [facility] - 05/26/2025 12:52 PM CDT Rechecking WBC us Jerry Ray MD LAB BLOOD ORDERABLES Final Res ult [facility] [place] [address] * eGFR (05/25/2025 11:32 PM CDT) [facility] eGFR >90 >=60 mL/min/1. 73 m2 Comment: [...] interpretive data was last reviewed 2021. Blood 05/25/2025 11:3 2 PM CDT 05/25/2025 11:55 PM CDT Kel Nunn MD PhD LAB BLOOD ORDERABLES Final Result [facility] [place] [address] * (ABNORMAL) CBC with auto differential (05/25/2025 11:32 PM CDT) [facility] WBC 34.94(H) 3.80 - 9.90 K/cumm Hgb 9.9(L) 13.0 - 17.5 g/dL [facility] Hct 31.4(L) 38.9 - 50.3 % [facility] Plt 473(H) 150 - 400 K/cumm [facility] MPV 9.6 9.1 - 12.3 fL [facility] RBC 3.14(L) 4.30 - 5.80 M/cumm [facility] MCV 100.0(H) 81.3 - 96.4 fL [facility] MCH 31.5 27.1 - 33.3 pg [facility] MCHC 31.5(L) 32.3 - 35.7 g/dL [facility] RDW CV 17.5(H) 11.1 - 14.9 % [facility] RDW SD 64.1(H) 35.7 - 48.1 fL [facility] NRBC abs 0.00 0.00 - 0.01 K/cumm [facility] Morphologic Screen Results confirmed by manual morphology review. [facility] Blood 05/25/2025 11:3 2 PM CDT 05/25/2025 11:55 PM CDT Kel Nunn MD PhD LAB BLOOD ORDERABLES Edited Result - Final [facility] [place] [address] * (ABNORMAL) Manual Differential (05/25/2025 11:32 PM CDT) Differential Manual Cells Counted 123 [facility] Neutrophil abs 31.27(H) 1.50 - 6.50 K/cumm [facility] Lymphocyte abs 0.56(L) 0.80 - 3.30 K/cumm [facility] Monocyte abs 3.11(H) 0.20 - 0.80 K/cumm [facility] Neutrophil pct 89.5 % [facility] Comment: Interpretive Data Percent cell count reference ranges are not reported, since discordance with absolute values may lead to misinterpretation of CBC data. Current Interpretive Data was last revised on 2017. Lymphocyte pct 1.6 % [facility] Comment: Interpretive Data Percent cell count reference ranges are not reported, since discordance with absolute values may lead to misinterpretation of CBC data. Current Interpretive Data was last revised on 2017. Monocyte pct 8.9 % [facility] Comment: Interpretive Data Percent cell count reference ranges are not reported, since discordance with absolute values may lead to misinterpretation of CBC data. Current Interpretive Data was last revised on 2017. Blood 05/25/2025 11:3 2 PM CDT 05/26/2025 Result [facility] Kel Nunn MD PhD LAB BLOOD ORDERABLES Final Result Performing Organization Address [facility] de Phone Number [facility] [place] [address] * (ABNORMAL) aPTT (05/25/2025 11:32 PM CDT) aPTT 24(L) 26 - 38 sec Comment: Interpretive Data Heparin therapeutic range: 66.0 - 100.0 seconds. Range based on correlation with therapeutic heparin activity range of 0.3 - 0.7 Units/mL. Current interpretive data was last revised on 2023. Blood 05/25/2025 11:3 2 PM CDT 05/25/2025 11:59 PM CDT Result [facility] Kel Nunn MD PhD LAB BLOOD ORDERABLES Final Result Performing Organization Address [facility] de Phone Number [facility] [place] [address] * Protime-INR (05/25/2025 11:32 PM CDT) PT 11.5 10.2 - 13.5 sec INR 1.02 0.90 - 1.20 [facility] Comment: Interpretive data Oral anticoagulant therapeutic ranges: Venous thromboembolism prophylaxis or treatment: 2.0-3.0 CARDIOLOGY Standard range: 2.0-3.0 High-intensity range: 2.5-3.5 Refer to indication-specific guidelines for appropriate target ranges for prosthetic heart valve replacement. Current interpretive data was last revised on 2019. Blood 05/25/2025 11:3 2 PM CDT 05/25/2025 11:59 PM CDT Result [facility] Kel Nunn MD PhD LAB BLOOD ORDERABLES Final Result Performing Organization Address [facility]/State/ZIP Co de Phone Number [facility] [place] [address] * Type and screen (05/25/2025 11:32 PM CDT) ABO Rh A Positive Char, indirect Negative [facility] Blood 05/25/2025 11:3 2 PM CDT 05/26/2025 12:06 AM CDT Narrative [facility] - 05/26/2025 1:12 AM CDT Has the patient had Daratumumab or Isatuximab in the past 6 months?->Unknown Kel Nunn MD PhD LAB BLOOD BANK TEST ORDERAB LES Final Result Performing Organization Address [facility] Co de Phone Number [facility] [place] [address] * Uric acid (05/25/2025 11:32 PM CDT) Pathologist [facility] Uric acid 3.4 3.0 - 8.0 mg/dL Blood 05/25/2025 11:3 2 PM CDT 05/25/2025 11:55 PM CDT Result [facility] Kel Nunn MD PhD LAB BLOOD ORDERABLES Final Result Performing Organization Address City/[facility]/ZIP Co de Phone Number [facility] [place] [address] * Phosphorus (05/25/2025 11:32 PM CDT) Phosphorus, pl 4.3 2.3 - 4.5 mg/dL Blood 05/25/2025 11:3 2 PM CDT 05/25/2025 11:55 PM CDT Result [facility] Kel Nunn MD PhD LAB BLOOD ORDERABLES Final Result Performing Organization Address City/[facility]/ZIP Co de Phone Number [facility] Department [place] [address] * Magnesium (05/25/2025 11:32 PM CDT) [facility] Magnesium 1.8 1.4 - 2.5 mg/dL Blood 05/25/2025 11:3 2 PM CDT 05/25/2025 11:55 PM CDT Kel Nunn MD PhD LAB BLOOD ORDERABLES Final Result Performing Organization Address City/[facility]/ZIP Co de Phone Number [facility] Department [place] [address] * (ABNORMAL) Lactate dehydrogenase (LD) (05/25/2025 11:32 PM CDT) [facility] Lactate dehydrogenase (LDH) 358(H) 100 - 250 Units/L Blood 05/25/2025 11:3 2 PM CDT 05/25/2025 11:55 PM CDT Kel Nunn MD PhD LAB BLOOD ORDERABLES Final Result Performing Organization Address [facility] [place] [address] * (ABNORMAL) Comprehensive metabolic panel (05/25/2025 11:32 PM CDT) [facility] Sodium 136 135 - 145 mmol/L Potassium, pl 5.0(H) 3.3 - 4.9 mmol/L [facility] Chloride 96(L) 97 - 110 mmol/L [facility] CO2 33(H) 22 - 32 mmol/L [facility] Anion gap 7 2 - 15 mmol/L [facility] BUN 27(H) 6 - 25 mg/dL [facility] Creatinine 0.67(L) 0.80 - 1.30 mg/dL [facility] Glucose 124 70 - 199 mg/dL [facility] Comment: Interpretive Data Fasting glucose >/= [...] interpretive data was last revised 2022. Calcium 8.7 8.5 - 10.3 mg/dL [facility] Bilirubin, total 0.3 0.1 - 1.2 mg/dL [facility] Protein, pl 6.4(L) 6.5 - 8.5 g/dL [facility] Albumin 3.6 3.5 - 5.0 g/dL [facility] Alk phos 85 40 - 130 Units/L [facility] ALT 40 7 - 55 Units/L [facility] AST 35 10 - 50 Units/L [facility] Blood 05/25/2025 11:3 2 PM CDT 05/25/2025 11:55 PM CDT us Kel Nunn MD PhD LAB BLOOD ORDERABLES Final Result [facility] [place] [address] * (ABNORMAL) Potassium (05/25/2025 11:54 AM CDT) Potassium, pl 5.5(H) 3.3 - 4.9 mmol/L Blood 05/25/2025 11:5 4 AM CDT 05/25/2025 11:56 AM CDT Cheng Franco MD LAB BLOOD ORDERABLES Cherrie l Result [facility] [place] [address] * CT Body Outside Consult (05/25/2025 11:12 AM CDT) Anatomical Region Laterality Modality Body N/A Computed Tomogra phy 05/25/2025 11:5 8 AM CDT Impressions 05/25/2025 7:39 PM CDT 1. The bulky left mediastinal and perihilar lymphadenopathy appears decreased in size when comparing to prior; however, the evaluation is limited given the noncontrast nature and thick 5 mm slices. The irregularly-shaped, masslike consolidation in the left upper lobe is persistent but slightly decreased in size. There is a new masslike consolidation in the left lingula which could represent postobstructive atelectasis versus pneumonia in the appropriate clinical setting. 2. Evidence of metastatic disease including extensive liver metastases and adrenal nodules appear decreased in size. Similarly appearing osseous metastases. The findings, conclusions and recommendations within this report do not replace the initial findings, conclusions and recommendations made at the facility where the study was performed based upon the imaging and clinical condition at that time. Comparison with the prior report and clinical history is necessary. The provided images may or may not represent the [place] source data set and thus may contain changes that may lower the accuracy of this second-opinion interpretation. Dictated by: Girish Diana M.D. The radiology attending physician has personally reviewed this study, and had reviewed and/or edited this written report and agrees with it. Electronically signed by: Yana Méndez M.D. Narrative 05/25/2025 7:39 PM CDT EXAMINATION: RADIOLOGY CONSULTATION ON OUTSIDE IMAGING STUDY STUDY INITIALLY PERFORMED: 05/19/2025 at [facility]. TYPE OF STUDY: Multiple CT images of the chest, abdomen, and pelvis without contrast are provided at the time of this interpretation. CONTRAST ROUTE: No contrast was administered. The protocol was adequate to address the clinical question. The outside final report was available at the time of this second opinion interpretation. 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 Multiple enlarged axillary, left mediastinal, and left hilar lymph nodes are present and appear similar to slightly decreased in size to prior exam, although evaluation is limited due to the noncontrast nature of this scan. For example the previously measured left paratracheal lymph node now measures 2.5 cm x 2.8 cm (series 4, image 30), previously measuring 3.5 cm x 3 cm. There still appears to be mass effect on the left upper lobe airways which appear obstructed. The trachea, right main stem bronchus, and left mainstem bronchus are normal in caliber with scattered mucous plugging. No endobronchial obstructing lesion. There is a right upper lobe lung nodule measuring 9.2 mm (series 4, image 14), which appears similar in size to prior examination. An additional 7 mm lung nodule in the left upper lobe (series 4, image 22) appears similar to prior examination. Slight interval decrease in size of the persistent left upper lobe mass-like consolidation with nodular branching opacities extending to the perihilar bulky lymph nodes. There is a new pulmonary consolidation in the left lingula, which likely represents postobstructive pneumonia versus atelectasis. Severe centrilobular emphysema. The heart is normal in size. No pericardial effusion. Mild coronary artery calcifications. The thoracic aorta is normal in caliber with atherosclerotic calcifications of the arch and descending aorta. The main pulmonary artery is normal in caliber. Nondistended esophagus No acute soft tissue abnormality of the chest. No aggressive osseous lesions. Abdomen/Pelvis: Normal liver size and contour. Numerous hypoattenuating lesions throughout the liver in keeping with patient's known history of liver metastases. These appear decreased in size when compared to prior; however, evaluation is limited due to the lack of contrast. For example, a hypoattenuating lesion is seen on series 5, image 32 measures 4 cm x 4.2 cm. This lesion previously measured 7.5 cm x 6.8 cm. The gallbladder is nondistended. No intrahepatic or extrahepatic biliary ductal dilation. Normal pancreas. Calcified granulomas in the spleen. There is diffuse thickening of the left adrenal gland, which appears stable to slightly smaller from prior. Right adrenal gland nodule appears slightly smaller to prior. Bilateral nonobstructive renal stones. No hydronephrosis. Right renal cortex calcifications. The urinary bladder is with bladder stones as well as a Espinosa catheter. The distal esophagus, stomach, and duodenal sweep are normal on the noncontrast exam. The small intestine and colon are normal in caliber. There is moderate to severe stool burden throughout the colon. The terminal ileum and appendix are normal. No organizing fluid collection. No ascites. No pneumoperitoneum. The IVC is normal in caliber. The abdominal aorta is normal in caliber with concentric, severe atherosclerotic calcification extending to the bilateral iliac arteries. No suspicious abdominal or pelvic lymphadenopathy. No acute soft tissue abnormalities. There is an infiltrative lesion in the right iliac bone with cortical erosion which corresponds to known metastatic disease, appears similar to priors. The known left iliac lesion is difficult to see. Procedure Note Yaan Méndez MD - 05/25/2025 EXAMINATION: RADIOLOGY CONSULTATION ON OUTSIDE IMAGING STUDY STUDY INITIALLY PERFORMED: 05/19/2025 at [facility]. TYPE OF STUDY: Multiple CT images of the chest, abdomen, and pelvis without contrast are provided at the time of this interpretation. CONTRAST ROUTE: No contrast was administered. The protocol was adequate to address the clinical question. The outside final report was available at the time of this second opinion interpretation. 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 Multiple enlarged axillary, left mediastinal, and left hilar lymph nodes are present and appear similar to slightly decreased in size to prior exam, although evaluation is limited due to the noncontrast nature of this scan. For example the previously measured left paratracheal lymph node now measures 2.5 cm x 2.8 cm (series 4, image 30), previously measuring 3.5 cm x 3 cm. There still appears to be mass effect on the left upper lobe airways which appear obstructed. The trachea, right main stem bronchus, and left mainstem bronchus are normal in caliber with scattered mucous plugging. No endobronchial obstructing lesion. There is a right upper lobe lung nodule measuring 9.2 mm (series 4, image 14), which appears similar in size to prior examination. An additional 7 mm lung nodule in the left upper lobe (series 4, image 22) appears similar to prior examination. Slight interval decrease in size of the persistent left upper lobe mass-like consolidation with nodular branching opacities extending to the perihilar bulky lymph nodes. There is a new pulmonary consolidation in the left lingula, which likely represents postobstructive pneumonia versus atelectasis. Severe centrilobular emphysema. The heart is normal in size. No pericardial effusion. Mild coronary artery calcifications. The thoracic aorta is normal in caliber with atherosclerotic calcifications of the arch and descending aorta. The main pulmonary artery is normal in caliber. Nondistended esophagus No acute soft tissue abnormality of the chest. No aggressive osseous lesions. Abdomen/Pelvis: Normal liver size and contour. Numerous hypoattenuating lesions throughout the liver in keeping with patient's known history of liver metastases. These appear decreased in size when compared to prior; however, evaluation is limited due to the lack of contrast. For example, a hypoattenuating lesion is seen on series 5, image 32 measures 4 cm x 4.2 cm. This lesion previously measured 7.5 cm x 6.8 cm. The gallbladder is nondistended. No intrahepatic or extrahepatic biliary ductal dilation. Normal pancreas. Calcified granulomas in the spleen. There is diffuse thickening of the left adrenal gland, which appears stable to slightly smaller from prior. Right adrenal gland nodule appears slightly smaller to prior. Bilateral nonobstructive renal stones. No hydronephrosis. Right renal cortex calcifications. The urinary bladder is with bladder stones as well as a Espinosa catheter. The distal esophagus, stomach, and duodenal sweep are normal on the noncontrast exam. The small intestine and colon are normal in caliber. There is moderate to severe stool burden throughout the colon. The terminal ileum and appendix are normal. No organizing fluid collection. No ascites. No pneumoperitoneum. The IVC is normal in caliber. The abdominal aorta is normal in caliber with concentric, severe atherosclerotic calcification extending to the bilateral iliac arteries. No suspicious abdominal or pelvic lymphadenopathy. No acute soft tissue abnormalities. There is an infiltrative lesion in the right iliac bone with cortical erosion which corresponds to known metastatic disease, appears similar to priors. The known left iliac lesion is difficult to see. IMPRESSION: 1. The bulky left mediastinal and perihilar lymphadenopathy appears decreased in size when comparing to prior; however, the evaluation is limited given the noncontrast nature and thick 5 mm slices. The irregularly-shaped, masslike consolidation in the left upper lobe is persistent but slightly decreased in size. There is a new masslike consolidation in the left lingula which could represent postobstructive atelectasis versus pneumonia in the appropriate clinical setting. 2. Evidence of metastatic disease including extensive liver metastases and adrenal nodules appear decreased in size. Similarly appearing osseous metastases. The findings, conclusions and recommendations within this report do not replace the initial findings, conclusions and recommendations made at the facility where the study was performed based upon the imaging and clinical condition at that time. Comparison with the prior report and clinical history is necessary. The provided images may or may not represent the [place] source data set and thus may contain changes that may lower the accuracy of this second-opinion interpretation. Dictated by: Girish Diana M.D. The radiology attending physician has personally reviewed this study, and had reviewed and/or edited this written report and agrees with it. Electronically signed by: Yana Méndez M.D. Cheng Franco MD IMG CT PROCEDURES Final R esult * (ABNORMAL) Differential, auto (05/25/2025 9:58 AM CDT) Neutrophil abs 11.25(H) 1.50 - 6.50 K/cumm Comment:Testing performed by : [facility], [address] [place], [place] [id number] Lymphocyte abs 1.55 0.80 - 3.30 K/cumm [facility] Comment:Testing performed by : [facility], [address] [place] [address] Monocyte abs 1.69(H) 0.20 - 0.80 K/cumm [facility] Comment:Testing performed by : [facility], [address] [place] [address] Eosinophil abs 0.13 0.00 - 0.50 K/cumm [facility] Comment:Testing performed by : [facility], [address] [place] [address] Basophil abs 0.07 0.00 - 0.10 K/cumm [facility] Comment:Testing performed by : [facility], [address] [place] [phone] Neutrophil pct 76.6 % [facility] Comment: Interpretive Data Percent cell count reference ranges are not reported, since discordance with absolute values may lead to misinterpretation of CBC data. Current Interpretive Data was last revised on 2017. Testing performed by: [facility], [address] [place] [phone] Lymphocyte pct 10.5 % [facility] Comment: Interpretive Data Percent cell count reference ranges are not reported, since discordance with absolute values may lead to misinterpretation of CBC data. Current Interpretive Data was last revised on 2017. Testing performed by: [facility], [address] [place] [phone] Monocyte pct 11.5 % [facility] Comment: Interpretive Data Percent cell count reference ranges are not reported, since discordance with absolute values may lead to misinterpretation of CBC data. Current Interpretive Data was last revised on 2017. Testing performed by: [facility], [address] [place] [phone] Eosinophil pct 0.9 % [facility] Comment: Interpretive Data Percent cell count reference ranges are not reported, since discordance with absolute values may lead to misinterpretation of CBC data. Current Interpretive Data was last revised on 2017. Testing performed by: [facility], [address] [place] [phone] Basophil pct 0.5 % [facility] Comment: Interpretive Data Percent cell count reference ranges are not reported, since discordance with absolute values may lead to misinterpretation of CBC data. Current Interpretive Data was last revised on 2017. Testing performed by: [facility], [address] [place] [phone] Blood 05/25/2025 9:58 AM CDT 05/25/2025 10:00 AM CDT Cheng Franco MD LAB BLOOD ORDERABLES Cherrie l Result [facility] [place] [address] * (ABNORMAL) CBC with auto differential (05/25/2025 9:58 AM CDT) WBC 14.68(H) 3.80 - 9.90 K/cumm Comment:Testing performed by : [facility], [address] [place] [address] Hgb 11.0(L) 13.0 - 17.5 g/dL [facility] Comment:Testing performed by : [facility], [address] [place] [address] Hct 33.9(L) 38.9 - 50.3 % [facility] Comment:Testing performed by : [facility], [address] [place] [address] Plt 527(H) 150 - 400 K/cumm [facility] Comment:Testing performed by : [facility], [address] [place] [address] MPV 6.9 6.8 - 10.4 fL [facility] Comment:Testing performed by : [facility], [address] [place] [address] RBC 3.51(L) 4.30 - 5.80 M/cumm [facility] Comment:Testing performed by : [facility], [address] [place] [address] MCV 96.6(H) 81.3 - 96.4 fL [facility] Comment:Testing performed by : [facility], [address] [place] [address] MCH 31.4 27.1 - 33.3 pg [facility] Comment:Testing performed by : [facility], [address] [place] [address] MCHC 32.6 32.3 - 35.7 g/dL [facility] Comment:Testing performed by : [facility], [address] [place] [address] RDW CV 18.0(H) 11.1 - 14.9 % [facility] Comment:Testing performed by : [facility], [address] [place] [address] NRBC abs 0.00 0.00 - 0.01 K/cumm [facility] Comment:Testing performed by : [facility], [facility] [place] [address] Blood 05/25/2025 9:58 AM CDT 05/25/2025 10:00 AM CDT Cheng Franco MD LAB BLOOD ORDERABLES Cherrie l Result [facility] [place] [address] * eGFR (05/25/2025 9:58 AM CDT) eGFR >90 >=60 mL/min/1. 73 m2 Comment: [...] interpretive data was last reviewed 2021. Blood 05/25/2025 9:58 AM CDT 05/25/2025 10:02 AM CDT Cheng Franco MD LAB BLOOD ORDERABLES Cherrie l Result [facility] [place] [address] * Thyroid Function [place] (05/25/2025 9:58 AM CDT) TSH 1.06 0.30 - 4.20 mcIUnit/mL Blood 05/25/2025 9:58 AM CDT 05/25/2025 10:02 AM CDT Cheng Franco MD LAB BLOOD ORDERABLES Cherrie l Result Performing Organization Address [facility] Co de Phone Number [facility] [place] [address] * (ABNORMAL) Comprehensive metabolic panel (05/25/2025 9:58 AM CDT) Pathologist [facility] [place] Sodium 136 135 - 145 mmol/L Potassium, pl 5.6(H) 3.3 - 4.9 mmol/L [facility] Chloride 94(L) 97 - 110 mmol/L [facility] CO2 36(H) 22 - 32 mmol/L [facility] Anion gap 6 2 - 15 mmol/L [facility] BUN 20 6 - 25 mg/dL [facility] Creatinine 0.64(L) 0.80 - 1.30 mg/dL [facility] Glucose 101 70 - 199 mg/dL [facility] Comment: Interpretive Data Fasting glucose >/= [...] interpretive data was last revised 2022. Calcium 9.3 8.5 - 10.3 mg/dL [facility] Bilirubin, total 0.3 0.1 - 1.2 mg/dL [facility] Protein, pl 6.7 6.5 - 8.5 g/dL [facility] Albumin 3.8 3.5 - 5.0 g/dL [facility] Alk phos 92 40 - 130 Units/L [facility] ALT 35 7 - 55 Units/L [facility] AST 32 10 - 50 Units/L [facility] Blood 05/25/2025 9:58 AM CDT 05/25/2025 10:02 AM CDT us Cheng Franco MD LAB BLOOD ORDERABLES Cherrie albarran Result [facility] [place] [address] * eGFR (05/14/2025 1:24 PM CDT) eGFR >90 >=60 mL/min/1. 73 m2 Comment: [...] of Race in Diagnosing Kidney Disease, JASN 202). The CKD-EPI equation should not be used for patients with unstable renal function and has not been validated in children and those over 70. Current interpretive data was last reviewed 2021. Testing performed by: [facility], [address] [place] [address] Blood 05/14/2025 1:24 PM CDT 05/14/2025 2:04 PM CDT Cheng Franco MD LAB BLOOD ORDERABLES Cherrie albarran Result [facility] [address] [facility]. [place] [address] * (ABNORMAL) Differential, auto (05/14/2025 1:24 PM CDT) Neutrophil abs 15.16(H) 1.50 - 6.50 K/cumm Comment:Testing performed by : [facility], [facility] 2, [address] [place] [address] Imm gran abs 0.11(H) 0.00 - 0.10 K/cumm [facility] C[facility]STOBAL Comment:Testing performed by : [facility] 2, [address] [place] [address] Lymphocyte abs 0.65(L) 0.80 - 3.30 K/cumm [facility] C[facility]ST[facility] Comment:Testing performed by : [facility], [facility] 2, [address] [place] [address] Monocyte abs 0.28 0.20 - 0.80 K/cumm [facility] Comment:Testing performed by : [facility] 2, [address] [place] [address] Eosinophil abs 0.00 0.00 - 0.50 K/cumm [facility] Comment:Testing performed by : [facility] 2, [address] [place] [address] Basophil abs 0.02 0.00 - 0.10 K/cumm [facility] Comment:Testing performed by : [facility] 2, [address] [place] [address] Neutrophil pct 93.5 % [facility] Comment: Interpretive Data Percent cell count reference ranges are not reported, since discordance with absolute values may lead to misinterpretation of CBC data. Current Interpretive Data was last revised on 2017. Testing performed by: [facility], [facility] 2, [address] [place] [address] Imm gran pct 0.7 % [facility] Comment: Interpretive Data Percent cell count reference ranges are not reported, since discordance with absolute values may lead to misinterpretation of CBC data. Current Interpretive Data was last revised on 2017. Testing performed by: [facility], [facility] 2, [address] [place] [address] Lymphocyte pct 4.0 % [facility] Comment: Interpretive Data Percent cell count reference ranges are not reported, since discordance with absolute values may lead to misinterpretation of CBC data. Current Interpretive Data was last revised on 2017. Testing performed by: [facility], [facility] 2, [address] [place] [address] Monocyte pct 1.7 % [facility] Comment: Interpretive Data Percent cell count reference ranges are not reported, since discordance with absolute values may lead to misinterpretation of CBC data. Current Interpretive Data was last revised on 2017. Testing performed by: [facility], [facility] 2, [address] [place] [address] Eosinophil pct 0.0 % [facility] Comment: Interpretive Data Percent cell count reference ranges are not reported, since discordance with absolute values may lead to misinterpretation of CBC data. Current Interpretive Data was last revised on 2017. Testing performed by: [facility], [facility] 2, [address] [place] [address] Basophil pct 0.1 % [facility] Comment: Interpretive Data Percent cell count reference ranges are not reported, since discordance with absolute values may lead to misinterpretation of CBC data. Current Interpretive Data was last revised on 2017. Testing performed by: [facility], [facility] 2, [address] [place] [address] Blood 05/14/2025 1:24 PM CDT 05/14/2025 1:25 PM CDT us Cheng Franco MD LAB BLOOD ORDERABLES Cherrie albarran Result [facility] [address] [facility] Department of Laboratories [place], [place] [id number] * (ABNORMAL) CBC with auto differential (05/14/2025 1:24 PM CDT) WBC 16.22(H) 3.80 - 9.90 K/cumm Comment:Testing performed by : [facility] 2, [address] [place] [address] Hgb 9.0(L) 13.0 - 17.5 g/dL [facility] Comment:Testing performed by : [place] [address], [address] [place] [address] Hct 28.6(L) 38.9 - 50.3 % [facility]ILMAN[facility] Comment:Testing performed by : [facility] 2, [address] [place] [address] Plt 1,215(C) 150 - 400 K/cumm [facility] Comment: Automated count confirmed by smear review. This result has been called to Komal Nava RN by [id number] on 05/14/2025 13:53:40, and has been read back. Testing performed by: [facility] 2, [address] [place] [address] MPV 8.5(L) 9.1 - 12.3 fL [facility] Comment:Testing performed by : [facility] 2, [address] [place] [address] RBC 2.90(L) 4.30 - 5.80 M/cumm [facility] Comment:Testing performed by : [facility] 2, [address] [place] [address] MCV 98.6(H) 81.3 - 96.4 fL [facility]MAN[facility] Comment:Testing performed by : [facility] 2, [address] [place] [address] MCH 31.0 27.1 - 33.3 pg [facility] Comment:Testing performed by : [facility] 2, [address] [place] [address] MCHC 31.5(L) 32.3 - 35.7 g/dL [facility] Comment:Testing performed by : [place] [address], [address] [place] [address] RDW CV 17.1(H) 11.1 - 14.9 % [facility] Comment:Testing performed by : [place] [address], [address] [place] [address] RDW SD 57.6(H) 35.7 - 48.1 fL [facility] Comment:Testing performed by : [place] [address], [address] [place] [address] ANC Prelim 15.16(H) 1.50 - 6.50 K/cumm [facility] Comment: Interpretive Data The rapid ANC is a preliminary automated count and may vary from the final ANC (Neut Abs) reported in the WBC differential that follows. Current interpretive data was last revised 2024. Testing performed by: [facility] 2, [address] [place] [address] Morphologic Screen Results confirmed by manual morphology review. [facility] Comment:Testing performed by : [place] [address], [address] [place] [address] Blood 05/14/2025 1:24 PM CDT 05/14/2025 1:25 PM CDT us Cheng Franco MD LAB BLOOD ORDERABLES Cherrie albarran Result [facility] [address] [facility]. Department of [employer] [place], [place] [id number] * (ABNORMAL) Comprehensive metabolic panel (05/14/2025 1:24 PM CDT) Sodium 139 135 - 145 mmol/L Comment:Testing performed by : [facility], [address], [place] [address] Potassium, pl 4.3 3.3 - 4.9 mmol/L [facility] Comment:Testing performed by : [facility], [address], [place] [address] Chloride 96(L) 97 - 110 mmol/L [facility] Comment:Testing performed by : [facility], [address], [place] [address] CO2 34(H) 22 - 32 mmol/L [facility] Comment:Testing performed by : [facility], [address], [place] [address] Anion gap 9 2 - 15 mmol/L [facility] Comment:Testing performed by : [facility], [address], [place] [address] BUN 24 6 - 25 mg/dL [facility] Comment:Testing performed by : [facility], [address], [place] [address] Creatinine 0.54(L) 0.80 - 1.30 mg/dL [facility] Comment:Testing performed by : [facility], [address], [place] [address] Glucose 128 70 - 199 mg/dL [facility] Comment: Interpretive Data Fasting glucose >/= [...] Current interpretive data was last revised 2022. Testing performed by: [facility], [address], [place] [address] Calcium 8.6 8.5 - 10.3 mg/dL [facility] Comment:Testing performed by : [facility], [address], [place] [address] Bilirubin, total 0.2 0.1 - 1.2 mg/dL [facility] Comment:Testing performed by : [facility], [address], [place] [address] Protein, pl 6.4(L) 6.5 - 8.5 g/dL [facility] Comment:Testing performed by : [facility], [address], [place] [address] Albumin 3.5 3.5 - 5.0 g/dL [facility] Comment:Testing performed by : [facility], [address], [place] [address] Alk phos 115 40 - 130 Units/L [facility] Comment:Testing performed by : [facility], [address], [place] [address] ALT 45 7 - 55 Units/L [facility] Comment:Testing performed by : [facility], [address], [place] [address] AST 36 10 - 50 Units/L [facility] Comment:Testing performed by : [facility], [address], [place] [address] Blood 05/14/2025 1:24 PM CDT 05/14/2025 2:04 PM CDT us Cheng Franco MD LAB BLOOD ORDERABLES Cherrie l Result [facility] [address] [place] [address] from Last 3 Months Insurance U[employer] MEDICARE [id number] Member Subscriber Plan / Payer (Ef fective 2024-Present) Name:Sim Carty Relation to Subscriber:Self Name:Sim Carty Payer ID:[id number] (NAIC) Type:[facility] MEDICARE Address: [address] COMMUNITY CARE [facility] MEDICARE LIFE1 [address] COMMUNITY CARE Member Subscriber Plan / Payer (Ef fective 2024-Present) Name:Sim Carty Relation to Subscriber:Self Name:Sim Carty Payer ID:[id number] Group ID:Not on file Type:[employer]OVERNMENT Address: [place] [id number] Advance Directives For more information, please contact: [phone] * LIMITED - No CPR (Latest Code Status on File) Date Activated Date Inactivated Comments 05/25/2025 8:56 PM 05/30/2025 8:12 PM Question Answer Comments Provide aggressive medical m anagement before a full cardiopulmonary arrest occurs. Use antibiotics, IV Fluids, and medical treatment unless specifically selected below: No intubation * LIMITED - No CPR Date Activated Date Inactivated Comments 05/25/2025 7:26 PM 05/25/2025 8:56 PM * LIMITED - No CPR Date Activated Date Inactivated Comments 05/25/2025 7:26 PM 05/25/2025 7:26 PM * LIMITED - No CPR Date Activated Date Inactivated Comments 04/07/2025 5:34 AM 04/28/2025 1:49 PM * LIMITED - No CPR Date Activated Date Inactivated Comments 04/06/2025 5:08 PM 04/07/2025 5:34 AM Question Answer Comments Cardio Resuscitation: No Chest CompressionsNo De fibrillation/Cardioversion Ventilation: No Intubation Care Teams Cuffer Relationship Specialty Start Date End Date Carmen Artis [address] [place] [address] PCP - General Family Medicine 03/09/25 Cheng Franco MD [address] [place] [address] Medical Oncologist/Clerk Secretary Medical Oncology 04/05/25 Yuval Licona MD [address] [facility] [address] [place] [address] Referring Physician Thoracic Surgery 04/05/25
--- OUTSIDE RECORDS SUMMARY | 2025-08-08 11:48 | XMS_ITS | Encounter Summary ---
Author Organization [facility] Address [address] [place] [address] Care Team Providers Care Supervisor Backfilling Name Role Phone Virgil Beaulieu MD Primary Care Provider [phone] Encounter Details Date Type Department Care Team (Late st Contact Info) Description 05/13/2025 Telephone [facility] [place] - Primary Care [address] [place] [address] Lynn Samayoa, FRENCH WEAVER Social History Tobacco Use Types Packs/Day Years Used Date Smoking Tobacco: Every Day Cigarettes Smokeless Tobacco: Never Alcohol Use Standard Drinks/Week Comments Yes 1 (1 standard drink = 0.6 oz pur e alcohol) per day [facility] Utilities Answer Date Recorded In the past 12 months has e [employer], gas, oil, or water [employer] threatened to shut off services in your home? No 03/25/2025 PHQ-2 Answer Date Recorded PHQ-2 Score 0 11/19/2024 Hunger Vital Sign Answer Date Recorded Within the past 12 months, y ou worried that your food would run out before you got the money to buy more. Never true 03/25/20 25 Within the past 12 months, t he food you bought just didn't last and you didn't have money to get more. Never true 03/25/2025 PRAPARE - Transportation Answer Date Re corded In the past 12 months, has l ack of transportation kept you from medical appointments or from getting medications? No 11/2024 In the past 12 months, has l ack of transportation kept you from meetings, work, or from getting things needed for daily living? No 03/25/2025 Housing Stability Vital Sign Answer Oscar e Recorded In the last 12 months, was t here a time when you were not able to pay the mortgage or rent on time? No 03/25/2025 Number of Times Moved in the Last Year Not on fi le 03/25/2025 At any time in the past 12 m [facility], were you homeless or living in a mcfp (including now)? No 03/25/2025 Sex and Gender Information Value Date Recorded Sex Assigned at Not on file Legal Sex Male 12:56 PM CDT Gender Identity Not on file Sexual Orientation Not on file documented as of this encounter Miscellaneous Notes * Telephone Encounter - Sonam Soto - 05/14/2025 8:50 AM CDT Talked to patients son, Will be getting a call back soon from [place]. * Telephone Encounter - Lynn Samayoa LPN - 05/13/2025 4:02 PM CDT Patient was discharged from [facility] today, 05/13/2025, dx pneumonia. He is scheduled for a follow up with Carmen Artis on Saturday05/19/2025. Call and check on patient in 24-48 hours after discharge. documented in this encounter Plan of Treatment Upcoming Encounters Date Type Department Care Team (Late st Contact Info) Description 08/09/2025 3:00 PM RUBBER HEEL AND SOLE PRESS TENDER Office Visit [facility] [place] - Primary Care [address] [place] [address] Carmen Artis FNP-Rayshawn [address] [place] [address] 11/08/2025 9:45 AM RUBBER HEEL AND SOLE PRESS TENDER Office Visit [facility] [place] - Primary Care [address] [place], [place] [address] Virgil Beaulieu MD [address] [place] [address] documented as of this encounter Visit Diagnoses Not on filedocumented in this encounter Additional Health Concerns Health Status Noted Date Alive and well 07/02/2024 Assessment Noted Time PHQ-9 Depression Total Score: 0 11/19/19 25 12:46 PM RUBBER HEEL AND SOLE PRESS TENDER A fall risk assessment has been complete d for the patient 03/25/2025 4:03 PM CDT documented as of this encounter Care Teams Supervisor Backfilling Relationship Specialty Start Date End Date Virgil Beaulieu MD [address] [place] [address] PCP - General Internal Medicine 07/31/18 documented as of this encounter
--- OUTSIDE RECORDS SUMMARY | 2025-08-08 11:48 | XMS_ITS | Encounter Summary ---
Author Organization [facility] Address [address] [place] [address] Care Team Providers Care Service Correspondent Name Role Phone Virgil Beaulieu MD Primary Care Provider [phone] Encounter Details Date Type Department Care Team (Late st Contact Info) Description 04/30/2025 Telephone [facility] [place] - Primary Care [address] [place] [address] Brian Ramos Social History Tobacco Use Types Packs/Day Years Used Date Smoking Tobacco: Every Day Cigarettes Smokeless Tobacco: Never Alcohol Use Standard Drinks/Week Comments Yes 1 (1 standard drink = 0.6 oz pur e alcohol) per day [facility] Utilities Answer Date Recorded In the past 12 months has e [employer], gas, oil, or water [employer] threatened to shut off services in your [...] any time in the past 12 m [facility], were you homeless or living in a long term (including now)? No 03/25/2025 Sex and Gender Information Value Date Recorded Sex Assigned at Not on file Legal Sex Male 12:56 PM CDT Gender Identity Not on file Sexual Orientation Not on file documented as of this encounter Miscellaneous Notes * Telephone Encounter - Brian Ramos - 05/03/2025 5:31 PM CDT Patient reports that he is still at [place] for rehab and he will be there for another week. He will call when he gets out of the hospital in [place] to set up an appointment. * Telephone Encounter - Brian Ramos - 05/03/2025 5:28 PM CDT Images from the original note were not included. PEEWEE Miner-Rayshawn 04/29/2025 Virgil Beaulieu MD; [facility] Patient discharged from [place] 04/28. I am not seeing a follow-up scheduled, but we may want to try to get him in with Dr. Beaulieu if he has any availability and if not, I am more than happy to see him. Thanks 04/30/2025 Attempted to call patient, no answer. documented in this encounter Plan of Treatment Upcoming Encounters Date Type Department Care Team (Late st Contact Info) Description 08/09/2025 3:00 PM BRANNER MACHINE TENDER Office Visit [facility] [place] - Primary Care [address] [place] [address] Carmen Artis, PEEWEE-C [address] [place] [address] 11/08/2025 9:45 AM BRANNER MACHINE TENDER Office Visit [facility] - Primary Care [address] [facility] [address] [place] [address] Virgil Beaulieu MD [address] [place] [address] documented as of this encounter Visit Diagnoses Not on filedocumented in this encounter Additional Health Concerns Health Status Noted Date Alive and well 07/02/2024 Assessment Noted Time PHQ-9 Depression Total Score: 0 11/19/19 25 12:46 PM BRANNER MACHINE TENDER A fall risk assessment has been complete d for the patient 03/25/2025 4:03 PM CDT documented as of this encounter Care Teams Service Correspondent Relationship Specialty Start Date End Date Virgil Beaulieu MD [address] [place] [address] PCP - General Internal Medicine 07/31/18 documented as of this encounter
--- OUTSIDE RECORDS SUMMARY | 2025-08-08 11:48 | XMS_ITS | Encounter Summary ---
Author Organization [facility] Address [address] [place] [address] Care Team Providers Care Seafood Process Worker Name Role Phone Carmen Artis Primary Care Provider [phone] Cheng Franco MD Unavailable Yuval Licona MD Unavailable Encounter Details Date Type Department Care Team (Late st Contact Info) Description 08/06/2025 Telephone [facility] [address] [place] [id number] Callie Niño Social History Tobacco Use Types Packs/Day Years [...] How often do you attend chur or sikh services? 1 to 4 times per year 04/14/2025 Do you belong to any clubs o r organizations such as faith groups, unions, fraternal or athletic groups, or [...] any time in the past [address] [facility], were you homeless or living in a long term (including now)? No 04/14/2025 Social Connection and Isolation Panel Answer Date Recorded In a typical week, how many times do you talk on the phone with family, friends, or neighbors? More than three times a week 05/26/2025 How often do you get togethe r with friends or relatives? More than three times a week 05/26/2025 How often do you attend chur ch or sikh services? 1 to 4 times per year 05/26/2025 Do you belong to any clubs o r organizations such as faith groups, unions, fraternal or athletic groups, or [...] any time in the past [address] [facility], were you homeless or living in a long term (including now)? No 05/26/2025 [facility] Utilities Answer Date Recorded In the [...] encounter Miscellaneous Notes * Telephone Encounter - Callie Niño - 08/06/2025 11:28 AM CST Spoke with patient's daughter briefly per referral to [facility] Psychology Service. Provided SPS overview to daughter. Patient not available at this time but daughter thinks patient would be interestedin SPS services. Asked that I reach out next week. 08/06/25 DRYER documented in this encounter Plan of Treatment Not on file documented as of this encounter Visit Diagnoses Not on filedocumented in this encounter Care Teams Seafood Process Worker Relationship Specialty Start Date End Date Carmen Artis [address] [place] [address] PCP - General Family Medicine 03/09/25 Cheng Franco MD [address] [place] [address] Medical Oncologist/Screener Perfumer Medical Oncology 04/05/25 Yuval Licona MD [address] [facility] [address] [place], [place] [id number] Referring Physician Thoracic Surgery 04/05/25 documented as of this encounter
--- NOTE | 2025-08-08 11:49 | W.ED.MALEGU ---
HPI - Male Genitourinary General: Chief complaint: Urogenital-Male Stated complaint: little urine output in cath pain in lower back p Time Seen by Provider: 08/08/25 11:37 Source: patient Mode of arrival: ambulatory Limitations: no limitations History of Present Illness: 75-year-old male with extensive history of metastatic cancer including lungs liver and bone. He has chronic indwelling Cuadra has had some increased abdominal pain that radiates to his back today. States he had little urine output out of his Cuadra. Patient was seen here this week had a CT scan showed no acute findings just extensive cancer. States the pain is diffuse in nature rates it a 6 out of 10 denies any fever denies any vomiting or diarrhea. Related Data Home Medications ?Medication ?Instructions ?Recorded ?Confirmed atorvastatin 20 mg tablet 20 mg PO BEDTIME 07/17/25 07/29/25 clopidogrel 75 mg tablet 75 mg PO DAILY 07/17/25 07/29/25 cyanocobalamin (B12)-cobamamide 1 arnold sublingual DAILY 07/17/25 07/29/25 5,000 mcg-100 mcg sublingual lozenge (B12) furosemide 40 mg tablet 40 mg PO DAILY 07/17/25 07/29/25 guaifenesin 600 mg tablet, 1,200 mg PO BID 07/17/25 07/29/25 extended release 12 hr (Mucinex) ipratropium 0.5 mg-albuterol 3 mg 3 ml inhalation Q6H PRN sob 07/17/25 07/29/25 (2.5 mg base)/3 mL nebulization soln tamsulosin 0.4 mg capsule 0.4 mg PO BEDTIME 07/17/25 07/29/25 trazodone 50 mg tablet 50 mg PO DAILY PRN Sleep 07/17/25 07/29/25 benzonatate 100 mg capsule 100 mg PO TID 07/29/25 07/29/25 breathing device 07/29/25 07/29/25 levofloxacin 750 mg tablet mg PO 07/29/25 07/29/25 lidocaine 5 % topical patch 1 patch topical DAILY PRN 07/29/25 07/29/25 (DermacinRx Lidocan) mirtazapine 7.5 mg tablet 15 mg PO BEDTIME 07/29/25 07/29/25 Previous Rx's ?Medication ?Instructions ?Recorded aluminum-mag hydroxide-simethicone 15 ml PO Q6H PRN Indigestion 60 07/19/25 200 mg-200 mg-20 mg/5 mL oral susp days #3,000 mL (Mag-Al Plus) budesonide-formoterol HFA 160 2 puff inhalation BID #10.2 grams 08/04/25 mcg-4.5 mcg/actuation aerosol inhaler lorazepam 2 mg tablet (Ativan) 2 mg PO Q8H PRN anxiety/air hunger 08/06/25 #14 tabs oxycodone 5 mg tablet 5 mg PO Q4H PRN pain #25 tabs 08/06/25 spironolactone 25 mg tablet 25 mg PO DAILY #20 tabs 08/06/25 cephalexin 500 mg capsule 500 mg PO TID 7 days #21 caps 08/08/25 Allergies Allergy/AdvReac Type Severity Reaction Status Date / Time budesonide Allergy ADR-Gastrointestinal Verified 07/29/25 14:34 Upset [facility] ED PFSH: Medical History (Updated 08/08/25 @ 12:54 by Uche Ryan MD) Metastatic primary lung cancer COPD (chronic obstructive pulmonary disease) Non-small cell carcinoma of lung Social History Smoking and tobacco/nicotine status: former use of tobacco/nicotine (1 ppd X 60 years. Quit in December 2024) Course Vital Signs: Vital signs: Vital Signs Temperature 98.2 F 08/08/25 11:36 Pulse Rate 93 08/08/25 13:17 Respiratory Rate 23 H 08/08/25 13:17 Blood Pressure 138/70 08/08/25 13:17 Pulse Oximetry 100 08/08/25 13:17 Oxygen Delivery Me thod Room Air 08/08/25 11:36 MDM - Male Medical Decision Making 1-year-old male extensive history of metastatic cancer here with abdominal pain concern of catheter not functioning appropriately. Did place a new Cuadra does not appear to be obstructed. Did check blood work including creatinine which were normal no signs of acute renal failure. He has chronic abdominal pain likely from his cancer. His pain is much improved after IV meds. He has no signs of acute infection did have a CT just 3 days ago and will not repeat CT of his abdomen he stable for discharge he is follow-up his PCP and return if worsening. Medical Records I reviewed the patient's medical records. Lab Data I reviewed the patient's lab results. 08/08/25 12:06 08/08/25 12:06 Laboratory Results WBC 11.42 10^3/uL (3.29-11.43) 08/08/25 12:06 RBC 2.87 10^6/uL (3.85-5.65) L 08/08/25 12:06 Hgb 9.50 g/dL (11.27-16.99) L 08/08/25 12:06 Hct 30.5 % (37-53) L 08/08/25 12:06 MCV 106.3 fl (82-101) H 08/08/25 12:06 MCH 33.1 pg (27-33) H 08/08/25 12:06 MCHC 31.1 g/dL (30-55) 08/08/25 12:06 RDW 17.4 % (12.1-15.1) H 08/08/25 12:06 Plt Count 297 10^3/cmm (157-399) 08/08/25 12:06 MPV 9.1 fL (7.4-10.4) 08/08/25 12:06 Neut % (Auto) 86.2 % 08/08/25 12:06 Lymph % (Auto) 4.7 % 08/08/25 12:06 Cascade % (Auto) 6.3 % 08/08/25 12:06 Eos % (Auto) 1.6 % 08/08/25 12:06 Baso % (Auto) 0.7 % 08/08/25 12:06 Neut # (Auto) 9.84 10^3/uL (1.8-7.7) H 08/08/25 12:06 Lymph # (Auto) 0.5 10^3/uL (0.8-4.8) L 08/08/25 12:06 Cascade # (Auto) 0.7 10^3/uL (0.2-0.9) 08/08/25 12:06 Eos # (Auto) 0.2 10^3/uL (0.0-0.8) 08/08/25 12:06 Baso # (Auto) 0.1 10^3/uL (0.0-0.1) 08/08/25 12:06 Nucleated RBC % (auto) 0 % 08/08/25 12:06 Nucleated RBCs # 0.0 /100WBC 08/08/25 12:06 Sodium 137 mmol/L (136-145) 08/08/25 12:06 Potassium 5.1 mmol/L (3.5-5.1) 08/08/25 12:06 Chloride 95 mmol/L (98-107) L 08/08/25 12:06 Carbon Dioxide 33 mmol/L (22-29) H 08/08/25 12:06 Anion Gap 14.1 (5-19) 08/08/25 12:06 BUN 20 mg/dL (8-23) 08/08/25 12:06 Creatinine 0.6 mg/dL (0.7-1.2) L 08/08/25 12:06 GFR Calculation Not Reportable 08/08/25 12:06 Glucose 121 mg/dL (65-115) H 08/08/25 12:06 Calculated Osmolality 288 mOsm/kg (285-295) 08/08/25 12:06 Calcium 9.3 mg/dL (8.5-10.5) 08/08/25 12:06 Total Bilirubin 0.3 mg/dL (0.15-1.2) 08/08/25 12:06 AST 68 U/L (0-40) H 08/08/25 12:06 ALT 77 U/L (0-41) H 08/08/25 12:06 Alkaline Phosphatase 184 U/L (40-130) H 08/08/25 12:06 Total Protein 5.9 g/dL (6.6-8.7) L 08/08/25 12:06 Albumin 3.7 g/dL (3.5-5.2) 08/08/25 12:06 Globulin 2.2 g/dL (1.3-4.6) 08/08/25 12:06 Lipase 11 U/L (13-60) L 08/08/25 12:06 Urine Color Yellow (Yellow) 08/08/25 12:15 Urine Appearance Clear (CLEAR) 08/08/25 12:15 Urine pH 5.0 (5-7) 08/08/25 12:15 Ur Specific [place] 1.010 (1.005-1.030) 08/08/25 12:15 Urine Protein Negative (Negative) 08/08/25 12:15 Urine Glucose (UA) Negative (Normal) 08/08/25 12:15 Urine Ketones Negative (Negative) 08/08/25 12:15 Urine Blood 3+ (Negative) A 08/08/25 12:15 Urine Nitrate Negative (Negative) 08/08/25 12:15 Urine Bilirubin Negative (Negative) 08/08/25 12:15 Urine Urobilinogen 0.2 mg/dL (Negative) 08/08/25 12:15 Ur Leukocyte Esterase 2+ (Negative) A 08/08/25 12:15 Urine RBC >100 /hpf (0-2) H 08/08/25 12:15 Urine WBC 11-20 /hpf (0-5) H 08/08/25 12:15 Ur Squamous Epith Cells 0-5 /hpf (0-5) 08/08/25 12:15 Amorphous Sediment Not Reportable 08/08/25 12:15 Urine Bacteria 1+ /hpf (NONE) H 08/08/25 12:15 Hyaline Casts 19.83 /lpf 08/08/25 12:15 No radiology studies performed this visit Discharge Plan Discharge Patient Disposition: Home Clinical Impression: Urinary tract infection, Abdominal pain Condition: Stable Prescriptions: New cephalexin 500 mg capsule 500 mg PO TID 7 Days Qty: 21 0RF No Action lidocaine [DermacinRx Lidocan] 5 % adhesive patch,medicated 1 patch topical DAILY PRN Rx Instructions: leave on most painful area for up to 12 hrs levofloxacin 750 mg tablet PO (DME) breathing device 0 .ROUTE .MEDSUPPLY budesonide-formoterol 160-4.5 mcg/actuation HFA aerosol inhaler 2 puff inhalation BID Qty: 10.2 6RF furosemide 40 mg tablet 40 mg PO DAILY atorvastatin 20 mg tablet 20 mg PO BEDTIME ipratropium-albuterol 0.5 mg-3 mg(2.5 mg base)/3 mL solution for nebulization 3 ml INHALATION Q6H PRN (Reason: sob) trazodone 50 mg tablet 50 mg PO DAILY PRN (Reason: Sleep) clopidogrel 75 mg tablet 75 mg PO DAILY tamsulosin 0.4 mg capsule 0.4 mg PO BEDTIME B12 5,000-100 mcg Lozenge 1 arnold SUBLINGUAL DAILY guaifenesin [Mucinex] 600 mg tablet extended release 12hr 1,200 mg PO BID alum-mag hydroxide-simeth [Mag-Al Plus] 200-200-20 mg/5 mL Suspension 15 ml PO Q6H PRN (Reason: Indigestion) 60 Days Qty: 3000 0RF benzonatate 100 mg capsule 100 mg PO TID mirtazapine 7.5 mg tablet 15 mg PO BEDTIME oxycodone 5 mg tablet 5 mg PO Q4H PRN (Reason: pain) Qty: 25 0RF lorazepam [Ativan] 2 mg tablet 2 mg PO Q8H PRN (Reason: anxiety/air hunger) Qty: 14 0RF Rx Instructions: Anxiety/air hunger spironolactone 25 mg tablet 25 mg PO DAILY Qty: 20 0RF Discharge Orders: Discharge ED (Routine); Ordered 08/08/25 Ordered By: Uche Ryan Referrals: Virgil Beaulieu MD [Primary Care Provider, Internal Medicine] - 4-7 days Discharge Diet: Advance as tolerated Discharge Activity: Resume usual activity Patient Instructions: Urinary Tract Infection in Men (ED), Abdominal Pain (ED) Print Language: Kuwaiti Coding Level of Care Code ED Electronics Test Engineer for Yobany Mendiola
--- OUTSIDE RECORDS SUMMARY | 2025-08-08 11:49 | XMS_ITS | Encounter Summary ---
Author Organization [facility] Address [address] [place] [address] Phone Care Team Providers Care Ui Software Engineer Name Role Phone ChandraCarmen Belkys Primary Care Provider [phone] Cheng Franco MD Unavailable Yuval Licona MD Unavailable Encounter Details Date Type Department Care Team (Late st Contact Info) Description 08/03/2025 Orders Only [facility] Medicine Oncology [address] [facility] Floor 5 [place] [address] Nadege Burr RN Social History Tobacco Use [...] often do you attend chur ch or advent services? 1 to 4 times per year 04/14/2025 Do you belong to any clubs o r organizations such as latter day groups, unions, fraternal or athletic groups, or [...] any time in the past 12 m [facility], were you homeless or living in a [place] health care facility (including now)? No 04/14/2025 Social Connection and Isolation Panel Answer Date Recorded In a typical week, how many times do you talk on the phone with family, friends, or neighbors? More than three times a week 05/26/2025 How often do you get togethe r with friends or relatives? More than three times a week 05/26/2025 How often do you attend chur ch or advent services? 1 to 4 times per year 05/26/2025 Do you belong to any clubs o r organizations such as latter day groups, unions, fraternal or athletic groups, or [...] any time in the past 12 m [facility], were you homeless or living in a [place] health [place] facility (including now)? No 05/26/2025 [facility] Utilities Answer Date Recorded In the [...] on filedocumented in this encounter Care Teams Ui Software Engineer Relationship Specialty Start Date End Date Carmen Artis [address] [place] [address] PCP - General Family Medicine 03/09/25 Cheng Franco MD [address] [place] [address] [address] [place] [address] Medical Oncologist/Hot Stamp Operator Medical Oncology 04/05/25 Yuval Licona MD [address] [facility] [address] [place] [address] Referring Physician Thoracic Surgery 04/05/25 documented as of this encounter
--- OUTSIDE RECORDS SUMMARY | 2025-08-08 11:50 | XMS_ITS | Encounter Summary ---
Author Organization [facility] Address [address] [place] [place] [address] Care Team Providers Care Shafting Cleaner Name Role Phone Virgil Beaulieu MD Primary Care Provider [phone] Encounter Details Date Type Department Care Team (Late Contact Info) Description 03/20/2019 Orders Only [facility] [address] [facility] [place] [address] System, Provider Not In, [address] [place] [address] Social History Tobacco Use Types Packs/Day Years Used Date Smoking Tobacco: Every Day Cigarettes Smokeless Tobacco: Never Alcohol Use Standard Drinks/Week Comments Yes 1 (1 standard drink = 0.6 oz pur e alcohol) per day Sex and Gender Information Value Date Recorded Sex Assigned at Not on file Legal Sex Male 12:56 PM CDT Gender Identity Not on file Sexual Orientation Not on file documented as of this encounter Plan of Treatment Upcoming Encounters Date Type Department Care Team (Late st Contact Info) Description 08/09/2025 3:00 PM SOCIAL SERVICE DIRECTOR Office Visit [facility] [place] - Primary Care [address] [place] [address] Carmen Artis, SALES SUPPORT TECHNICIAN-C [address] [place] [address] 11/08/2025 9:45 AM SOCIAL SERVICE DIRECTOR Office Visit [facility] [place] - Primary Care [address] [place] [address] Virgil Beaulieu MD [address] [place] [address] documented as of this encounter Procedures Procedure Name Priority Date/Time Associated Diagnosis Comments OUTSIDE IMAGES 03/20/2019 10:38 AM CDT documented in this encounter Results * Outside Images (03/20/2019 10:38 AM CDT) Anatomical Region Laterality Modality N/A Radiographic Nancy ging 03/20/2019 10:3 8 AM CDT Narrative 03/20/2019 10:38 AM CDT Image aquired from external facility for exam: CTA NECK Procedure Note System, Provider Not In, MD - 03/25/2019 Image aquired from external facility for exam: CTA NECK us Provider Not In System MD [facility] Final Result documented in this encounter Visit Diagnoses Not on filedocumented in this encounter Additional Health Concerns Health Status Noted Date Alive and well 07/30/2018 Infection Onset Date Last Indicated Resolved Time COVID-19 (rule out) 07/11/2020 07/11/2020 07/13/20 20 11:00 AM CDT COVID-19 (rule out) 02/22/2021 02/22/2021 02/24/20 21 2:30 PM CDT documented as of this encounter Care Teams Shafting Cleaner Relationship Specialty Start Date End Date Virgil Beaulieu MD [address] [place] [address] PCP - General Internal Medicine 07/31/18 documented as of this encounter
--- OUTSIDE RECORDS SUMMARY | 2025-08-08 11:51 | XMS_ITS | Encounter Summary ---
Author Organization [facility] Address [address] [place] [address] Care Team Providers Care Purifying Plant Operator Name Role Phone Virgil Beaulieu MD Primary Care Provider [phone] Encounter Details Date Type Department Care Team (Late st Contact Info) Description 07/27/2025 Results Follow-Up [facility] [place] - Primary Care [address] [place] [address] Elizabeth Flor, PEEWEE [address] [facility] [address] [place] [address] CBC with Differential Once, Comprehensive metabolic panel Once, Magnesium Once, Additional followed-up results: 6 Social History Tobacco Use Types Packs/Day Years Used Date Smoking Tobacco: Former Cigarettes 0 Q uit: 04/2025 Smokeless Tobacco: Never Alcohol Use Standard Drinks/Week Comments Yes 1 (1 standard drink = 0.6 oz pur e alcohol) per day [facility] Utilities Answer Date Recorded In the past 12 months has e electric, gas, oil, or water company [...] time in the past [address] [facility], were you homeless or living in a longterm (including now)? No 05/19/2025 Sex and Gender Information Value Date Recorded Sex Assigned at Not on file Legal Sex Male 12:56 PM CDT Gender Identity Not on file Sexual Orientation Not on file documented as of this encounter Plan of Treatment Upcoming Encounters Date Type Department Care Team (Late st Contact Info) Description 08/09/2025 3:00 PM ELECTRONIC CONSOLE DISPLAY OPERATOR Office Visit [facility] - Primary Care [address] [place] [address] Carmen Artis FNP-C [address] [place] [address] 11/08/2025 9:45 AM ELECTRONIC CONSOLE DISPLAY OPERATOR Office Visit [facility] [place] - Primary Care [address] [place] [address] Virgil Beaulieu MD [address] [place] [address] documented as of this encounter Visit Diagnoses Not on filedocumented in this encounter Additional Health Concerns Health Status Noted Date Alive and well 07/02/2024 Assessment Noted Time PHQ-9 Depression Total Score: 0 11/19/19 25 12:46 PM ELECTRONIC CONSOLE DISPLAY OPERATOR A fall risk assessment has been complete d for the patient 07/27/2025 1:35 PM ELECTRONIC CONSOLE DISPLAY OPERATOR documented as of this encounter Care Teams Purifying Plant Operator Relationship Specialty Start Date End Date Virgil Beaulieu MD [address] [address] PCP - General Internal Medicine 07/31/18 documented as of this encounter
--- OUTSIDE RECORDS SUMMARY | 2025-08-08 11:52 | XMS_ITS | Encounter Summary ---
Author Organization [facility] Address [address] [place] [address] Care Team Providers Care Manager Union Name Role Phone Virgil Beaulieu MD Primary Care Provider [phone] Reason for Visit * Reason Comments Med Refill Encounter Details Date Type Department Care Team (Late st Contact Info) Description 08/02/2025 Refill [facility] [place] - Primary Care [address] [place] [address] Carmen Artis, SENIOR SOFTWARE TEST ENGINEER-C [address] [place] [address] Panlobular emphysema (HCC) Social History Tobacco Use Types Packs/Day Years Used Date Smoking Tobacco: Former Cigarettes 0 Q uit: 04/2025 Smokeless Tobacco: Never Alcohol Use Standard Drinks/Week Comments Yes 1 (1 standard drink = 0.6 oz pur e alcohol) per day [facility] Utilities Answer Date Recorded In the [...] any time in the past 12 m [facility], were you homeless or living in a usp (including now)? No 05/19/2025 Sex and Gender Information Value Date Recorded Sex Assigned at Not on file Legal Sex Male 12:56 PM CDT Gender Identity Not on file Sexual Orientation Not on file documented as of this encounter Miscellaneous Notes * Telephone Encounter - Sonam Soto - 08/02/2025 1:44 PM CST Refill request, last visit 06/02/25, last ordered 06/02/25 NCED PRACTICE REGISTERED NURSE documented in this encounter Plan of Treatment Upcoming Encounters Date Type Department Care Team (Late st Contact Info) Description 08/09/2025 3:00 PM ADVANCED PRACTICE REGISTERED NURSE Office Visit [facility] [place] - Primary Care [address] [facility] [address] [place] [address] Carmen Artis, PEEWEE-C [address] [facility] [address] [place] [address] 11/08/2025 9:45 AM ADVANCED PRACTICE REGISTERED NURSE Office Visit [facility] [place] - Primary Care [address] [place] [address] Virgil Beaulieu MD [address] [facility] [address] [place] [address] documented as of this encounter Visit Diagnoses Diagnosis Panlobular emphysema (HCC) Other emphysema documented in this encounter Additional Health Concerns Health Status Noted Date Alive and well 07/02/2024 Assessment Noted Time PHQ-9 Depression Total Score: 0 11/19/19 25 12:46 PM ADVANCED PRACTICE REGISTERED NURSE A fall risk assessment has been complete d for the patient 07/27/2025 1:35 PM ADVANCED PRACTICE REGISTERED NURSE documented as of this encounter Care Teams Manager Union Relationship Specialty Start Date End Date Virgil Beaulieu MD [address] [place] [address] PCP - General Internal Medicine 07/31/18 documented as of this encounter
--- OUTSIDE RECORDS SUMMARY | 2025-08-08 11:53 | XMS_ITS | Clinical Summary ---
Author Organization [facility] Address [address] [place] [address] Care Team Providers Care Supplemental Manager Name Role Phone Virgil Beaulieu MD Primary Care Provider [phone] Allergies Active Allergy Reactions Criticality Noted Date Comments Budesonide Other (See Comments) 04/05/2025 flush Medications mecobalamin, vitamin B12, 1,000 mcg tablet,chewable Chew 1,000 mcg in the morning. Active ondansetron (ZOFRAN) 8 mg tablet Take 8 mg by mouth as needed. Active lidocaine (Lidoderm) 5 % patchIndication s:Acute right-sided thoracic back pain Place 1 patch on the skin in the morning. Remove & Discard patch within 12 hours or as directed by MD. 30 patch 3 2024 Active clopidogreL (PLAVIX) 75 mg tabletIndicatio ns:Carotid stenosis, left Take 1 tablet (75 mg total) by mouth in the morning. 30 tablet 11 2025 Active furosemide (LASIX) 40 mg tabletIndicatio ns:Congestive heart failure, unspecified HF chronicity, unspecified heart failure type (HCC) Take 1 tablet (40 mg total) by mouth in the morning. 30 tablet 11 025 2025 Active guaiFENesin (MUCINEX) 600 mg 12 hr tabletIndicatio ns:Panlobular emphysema (HCC) Take 2 tablets (1,200 mg total) by mouth every 12 (twelve) hours. 120 tablet 11 025 2025 Active benzonatate (TESSALON PERLES) 100 mg capsuleIndicati ons:Panlobular emphysema (HCC) Take 1 capsule (100 mg total) by mouth 3 (three) times a day as needed for cough. 60 capsule 3 025 2025 Active naloxone (NARCAN) 4 mg/actuation nasal sprayIndication s:Malignant neoplasm of overlapping sites of lung, unspecified laterality (HCC) Administer 1 spray (4 mg total) into affected nostril(s) every 2 (two) minutes as needed for opioid reversal. 2 each Active levoFLOXacin (LEVAQUIN) 750 mg tablet Take 750 mg by mouth in the morning. Active HYDROcodone-alfred taminophen (NORCO) 5-325 mg per tablet 1 tablet every 8 (eight) hours as needed for moderate pain. Active sennosides-docu sate sodium (SENOKOT-S) 8.6-50 mg tablet Take 2 tablets by mouth in the morning and 2 tablets in the evening. Active traZODone (DESYREL) 50 mg tablet Take 50 mg by mouth nightly. Active melatonin 1 mg tablet,chewable Chew 1 mg nightly as needed. Active mirtazapine (REMERON) 7.5 mg tabletIndicatio ns:Body mass index (BMI) 19.9 or less, adult,Underweig ht Take 1 tablet (7.5 mg total) by mouth nightly. 30 tablet 1 Active tamsulosin (FLOMAX) 0.4 mg 24 hr capsuleIndicati ons:Urinary retention Take 1 capsule (0.4 mg total) by mouth in the morning. 30 capsule 1 Active atorvastatin (LIPITOR) 20 mg tabletIndicatio ns:Carotid stenosis, left Take 1 tablet (20 mg total) by mouth nightly. 90 tablet 1 025 Active ALPRAZolam (XANAX) 0.5 mg tabletIndicatio ns:Malignant neoplasm of overlapping sites of lung, unspecified laterality (HCC),SERENITY (generalized anxiety disorder) Take 1 tablet (0.5 mg total) by mouth 4 (four) times a day as needed for anxiety. 120 tablet 2024 Active ipratropium-alb uteroL (DUONEB) 0.5-2.5 mg/3 mL nebulizer solutionIndicat ions:Panlobular emphysema (HCC) USE 1 VIAL IN NEBULIZER EVERY 6 HOURS NEEDED FOR WHEEZING 360 mL Active Trelegy Ellipta 100-62.5-25 mcg blister with deviceIndicatio ns:Panlobular emphysema (HCC) INHALE 1 PUFF BY MOUTH EVERY MORNING 60 each 5 2024 Discontinued fluticasone propion-salmete roL (ADVAIR DISKUS) 250-50 mcg/dose diskus inhaler Inhale. 2024 Discontinued atorvastatin (LIPITOR) 20 mg tabletIndicatio ns:Carotid stenosis, left TAKE 1 TABLET BY MOUTH DAILY AT NIGHT 90 tablet 1 2024 Discontinued(R eorder) ergocalciferol (ERGOCALCIFEROL ) 1,250 mcg (50,000 unit) capsule Take 1,250 mcg by mouth. 2024 Discontinued losartan (COZAAR) 25 mg tablet Take 25 mg by mouth in the morning. 2024 Discontinued(S morenita effects) ferrous gluconate 324 mg (37.5 mg iron) tablet Take 324 mg by mouth in the morning. 2024 Discontinued(S morenita effects) polyethylene glycol (GLYCOLAX) 17 gram/dose ORAL powderIndicatio ns:Constipation , unspecified constipation type Take 17 g by mouth in the morning. 510 g 11 2024 Discontinued clopidogreL (PLAVIX) 75 mg tabletIndicatio ns:Cerebrovascu lar accident (CVA), unspecified mechanism (HCC) TAKE 1 TABLET BY MOUTH DAILY 90 tablet 3 2024 Discontinued(D uplicate order) insulin lispro (HumaLOG) 100 unit/mL injectionIndica tions:Hyperglyc emia Blood Sugar/Dose: 0-70=0 units, 71-140=0 Units, 150-220=1 Unit, 221-300=2 Units, 301-399=3 Units, >400=3 Units and Call Provider 3 mL 2024 Discontinued ipratropium-alb uteroL (DUONEB) 0.5-2.5 mg/3 mL nebulizer solutionIndicat ions:Panlobular emphysema (HCC) Take 3 mL by nebulization every 6 (six) hours as needed for wheezing. 333 mL 1 2024 Discontinued ALPRAZolam (XANAX) 0.5 mg tabletIndicatio ns:Malignant neoplasm of overlapping sites of lung, unspecified laterality (HCC),SERENITY (generalized anxiety disorder) Take 1 tablet (0.5 mg total) by mouth 3 (three) times a day as needed for anxiety. 90 tablet 2024 Discontinued(R eorder) HYDROcodone-alfred taminophen (NORCO) 5-325 mg per tabletIndicatio ns:Malignant neoplasm of overlapping sites of lung, unspecified laterality (HCC) Take 1 tablet by mouth 2 (two) times a day as needed for moderate pain. Max Daily Amount: 2 tablets 60 tablet 2024 ALPRAZolam (XANAX) 0.5 mg tabletIndicatio ns:Malignant neoplasm of overlapping sites of lung, unspecified laterality (HCC),SERENITY (generalized anxiety disorder) Take 1 tablet (0.5 mg total) by mouth 4 (four) times a day as needed for anxiety. 120 tablet 2024 Discontinued(R eorder) mirtazapine (REMERON) 7.5 mg tablet Take 7.5 mg by mouth nightly. 2024 Discontinued(R eorder) tamsulosin (FLOMAX) 0.4 mg 24 hr capsule Take 0.4 mg by mouth in the morning. 2024 Discontinued(R eorder) mirtazapine (REMERON) 15 mg tabletIndicatio ns:Body mass index (BMI) 19.9 or less, adult,Underweig ht Take 1 tablet (15 mg total) by mouth nightly. 30 tablet 1 025 2024 Discontinued Active Problems Problem Noted Date Diagnosed Date Chemotherapy-induced neutropenia 06/02/2025 Anxiety about health 06/02/2025 Assessment & Plan (06/02/2025 5:26 PM CDT): Has been on Xanax 0.5mg every 6 hours as needed Continue Xanax Hyperkalemia 06/02/2025 Assessment & Plan (06/02/2025 5:27 PM CDT): Potassium 5.6 while inpatient, was given lactulose Potassium on 05/31/25 4.4 Continue Lasix 40mg daily Repeat lab in 2 days Leukocytosis 06/02/2025 Assessment & Plan (06/02/2025 5:31 PM CDT): Most recent lab revealed WBC of >30 Lab was drawn shortly after Neulasta injection was given Depression 05/25/2025 Assessment & Plan (06/02/2025 5:22 PM CDT): Post-cancer diagnoses and overall prognosis 5mg Zyprexa started for appetite stimulant as well as depression Acute on chronic respiratory failure with hypoxi a 05/19/2025 BPH (benign prostatic hyperplasia) 05/11/2025 Indwelling Cuadra catheter present 05/11/2025 Hyponatremia 04/07/2025 Assessment & Plan (06/02/2025 5:26 PM CDT): Continue to monitor closely Limit amount of free water intake, electrolyte enhanced water preferred, being cautious of potassium Malignant neoplasm metastatic to bone 04/06/2025 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 04/06/2025 Overview (06/02/2025): May 03, 2025 Entered By: HAI FELIPE Comment: left lung mass with left hilar and mediastinal lymphadenopathy May 03, 2025 Entered By: HAI FELIPE Comment: necrotic liver lesion biopsied 04/09/25 + for small cell carcinoma Malignant neoplasm metastatic to liver Assessment & Plan (06/02/2025 5:34 PM CDT): Continue chemotherapy treatment per oncology team at [facility] Primary cancer of left upper lobe of lung 2024 Cerebral infarction 01/19/2025 Overview (01/19/2025): Jul 23, 2024 Entered By: IGL LEWIS Comment: right sided weakness B12 deficiency 03/13/2021 Assessment & Plan (01/07/2024 3:09 PM CDT): Add B12 to today's labs Assessment & Plan (10/02/2022 4:26 PM COSMETIC CONSULTANT): Add B12 to today's labs Assessment & Plan (03/21/2022 5:08 PM CDT): Add B12 level to today's labs B12 1cc IM today and repeat monthly Repeat level in three months. Assessment & Plan (03/13/2021 12:22 PM CDT): Add B12 level to today's labs B12 1cc IM today Elevated MCV 10/25/2020 Assessment & Plan (10/25/2020 2:40 PM COSMETIC CONSULTANT): Add B12 level to today's labs Abdominal bruit 10/25/2020 Assessment & Plan (01/07/2024 3:08 PM CDT): Reviewed ultrasound from 2020 Repeat Abdominal ultrasound for assessment of abdominal aorta. Assessment & Plan (10/25/2020 2:49 PM COSMETIC CONSULTANT): Abdominal ultrasound to assess aorta. Essential hypertension 09/24/2019 Assessment & Plan (01/07/2024 3:07 PM CDT): Continue to monitor Low sodium diet Assessment & Plan (04/23/2023 3:16 PM CDT): Continue low sodium diet and keep BP log for review. Assessment & Plan (10/02/2022 4:27 PM COSMETIC CONSULTANT): Continue current regimen with diet and low sodium and keep BP log Assessment & Plan (03/22/2022 6:24 PM CDT): Continue current regimen blood pressure control and monitor clinically. Assessment & Plan (10/25/2020 2:43 PM COSMETIC CONSULTANT): Hypertension is improving with treatment. Continue current treatment regimen. Dietary sodium restriction. Regular aerobic exercise. Stop smoking. Continue current medications. Blood pressure will be reassessed at the next regular appointment. Assessment & Plan (04/21/2020 3:10 PM CDT): Hypertension is improving with treatment. Continue current treatment regimen. Dietary sodium restriction. Stop smoking. Continue current medications. Blood pressure will be reassessed at the next regular appointment. Assessment & Plan (09/24/2019 3:57 PM COSMETIC CONSULTANT): Hypertension is worsening. Dietary sodium restriction. Stop smoking. Medication changes per orders. Blood pressure will be reassessed in 4 weeks. Add lisinopril 10mg daily BMP and BP check in two weeks with nursing staff On statin therapy 09/24/2019 Panlobular emphysema 11/18/2018 Assessment & Plan (06/02/2025 5:24 PM CDT): Continue DuoNeb treatments Continue Mucinex 1200mg BID Assessment & Plan (10/02/2022 4:31 PM COSMETIC CONSULTANT): Schedule PFT at [facility] Encourage to stop smoking Continue current medications. Assessment & Plan (10/25/2020 2:40 PM COSMETIC CONSULTANT): COPD is improving with treatment. Continue current medications. Assessment & Plan (09/24/2019 3:58 PM COSMETIC CONSULTANT): COPD is improving with treatment. Medication changes per orders. Follow up as scheduled or sooner if needed. PFT on follow up. Assessment & Plan (03/17/2019 11:52 AM CDT): COPD is unchanged. Warning signs of respiratory distress were reviewed with the patient. Medication changes per orders. Samples of LABA and inhaled steroid Patient to keep diary. Tobacco use 11/18/2018 Assessment & Plan (01/07/2024 2:55 PM CDT): Encouraged to stop smoking Assessment & Plan (10/02/2022 4:25 PM COSMETIC CONSULTANT): Encourage to stop smoking. Reviewed CT from April 13: IMPRESSION: No acute cardiopulmonary findings. Stable 1.2 cm right upper lobe pulmonary nodule on 0.4 cm left upper lobe pulmonary nodule. Emphysema. Atherosclerosis including coronary arteries. Recommend continued annual screening with low-dose CT in 12 months. Bilateral renal nonobstructing calculi. Assessment & Plan (10/25/2020 2:41 PM COSMETIC CONSULTANT): Encourage to stop smoking. Assessment & Plan (04/21/2020 3:11 PM CDT): Stop smoking Assessment & Plan (09/24/2019 4:00 PM COSMETIC CONSULTANT): Stop smoking Assessment & Plan (04/13/2019 1:42 PM CDT): I discussed the need to stop smoking. Assessment & Plan (03/17/2019 11:56 AM CDT): Stop smoking Pulmonary nodule, right 11/18/2018 Assessment & Plan (01/19/2025 1:30 PM CDT): Schedule CT scan lungs, no contrast Assessment & Plan (01/07/2024 2:50 PM CDT): CT of lungs April 2023: IMPRESSION: 1. Ectasia of the ascending thoracic aorta up to 3.9 cm diameter. 2. Bilateral apical scarring/fibrosis. 3. Noncalcified pulmonary nodules appear unchanged or decreased as compared to 05/03/2020. No new or increasing pulmonary nodule. The long-term time course of stability is most compatible with benign etiology. Plan repeat CT of lungs in April 2024. Assessment & Plan (04/23/2023 3:18 PM CDT): Reviewed most recent CT chest 04/14: IMPRESSION: 1. Ectasia of the ascending thoracic aorta up to 3.9 cm diameter. 2. Bilateral apical scarring/fibrosis. 3. Noncalcified pulmonary nodules appear unchanged or decreased as compared to 05/03/2020. No new or increasing pulmonary nodule. The long-term time course of stability is most compatible with benign etiology. Assessment & Plan (10/02/2022 4:30 PM COSMETIC CONSULTANT): Reviewed recent CT Continue to monitor Assessment & Plan (03/22/2022 6:24 PM CDT): Repeat imaging as scheduled. Assessment & Plan (04/21/2020 3:09 PM CDT): Schedule CT chest, non-contrast, lung protocol for follow up of nodule. Assessment & Plan (09/24/2019 4:00 PM COSMETIC CONSULTANT): Schedule CT of lung, non-contrast Assessment & Plan (03/17/2019 11:59 AM CDT): Request recommendations from Dr. Ayala (Pulmonary at [facility]). Mixed hyperlipidemia 11/18/2018 Assessment & Plan (01/07/2024 3:09 PM CDT): Resume atorvastatin Repeat lipids in 6 months Assessment & Plan (10/02/2022 4:26 PM COSMETIC CONSULTANT): Continue atorvastatin Repeat labs in 6 months Assessment & Plan (10/25/2020 2:40 PM COSMETIC CONSULTANT): Lipid abnormalities are improving with treatment. Pharmacotherapy as ordered. Lipids will be reassessed in 6 months. Assessment & Plan (04/21/2020 3:11 PM CDT): Lipid abnormalities are improving with treatment. Pharmacotherapy as ordered. Lipids will be reassessed in 6 months. Assessment & Plan (09/24/2019 4:00 PM COSMETIC CONSULTANT): Lipid abnormalities are improving with treatment. Pharmacotherapy as ordered. Lipids will be reassessed in 3 months. Assessment & Plan (03/17/2019 11:51 AM CDT): Lipid abnormalities are improving with treatment. Pharmacotherapy as ordered. Lipids will be reassessed in 3 months. Lipids and CMP on follow up Carotid stenosis, left 11/18/2018 Assessment & Plan (03/22/2022 6:24 PM CDT): Repeat carotid Doppler. Continue enteric-coated aspirin. Assessment & Plan (10/25/2020 2:44 PM COSMETIC CONSULTANT): Schedule bilateral carotid doppler Assessment & Plan (04/13/2019 1:42 PM CDT): This is less than 50%. I would recommend annual carotid duplex but will defer this to Dr. Beaulieu. If the patient should develop asymptomatic stenosis greater than 70%, we would be happy to see him to consider endarterectomy. He agrees with the above plan. Assessment & Plan (03/17/2019 11:56 AM CDT): Schedule CTA carotids. Referral to Dr. Bazan at [facility] History of right common carotid artery stent javed cement 11/18/2018 Assessment & Plan (01/07/2024 3:08 PM CDT): Continue clopidogrel Stop smoking Resume atorvastatin Assessment & Plan (04/13/2019 1:41 PM CDT): CTA suggests this is widely patent. If the patient should develop recurrent stenosis, would recommend referral back to interventional Radiology. Gastroesophageal reflux disease without esophagi tis 11/18/2018 Assessment & Plan (01/07/2024 3:04 PM CDT): GERD precautions and acid reduction as needed. Assessment & Plan (04/23/2023 3:16 PM CDT): GERD precautions and acid reduction as needed Assessment & Plan (10/02/2022 4:26 PM COSMETIC CONSULTANT): GERD precautions and acid reduction as needed Assessment & Plan (03/22/2022 6:24 PM CDT): Reflux precautions and acid reduction [id number] as needed Assessment & Plan (10/25/2020 2:42 PM COSMETIC CONSULTANT): GERD precautions and acid reduction with famotidine as needed. Assessment & Plan (04/21/2020 3:10 PM CDT): GERD precautions and acid reduction as needed. Assessment & Plan (03/17/2019 11:51 AM CDT): GERD precautions and acid reduction as needed. Benign prostatic hyperplasia with nocturia 11/18 Assessment & Plan (04/23/2023 3:14 PM CDT): Improved on tamsulosin Continue to monitor clinically and continue medications Assessment & Plan (10/02/2022 4:31 PM COSMETIC CONSULTANT): Continue tamsulosin PSA trended downward Urology follow up if needed. Assessment & Plan (03/22/2022 6:24 PM CDT): NEIL and PSA on follow-up Assessment & Plan (10/25/2020 2:42 PM COSMETIC CONSULTANT): Continue to monitor symptoms. Discussed alpha chary therapy and patient would like a trial. Discussed side effects. Assessment & Plan (04/21/2020 3:12 PM CDT): Add PSA to today's labs Assessment & Plan (03/17/2019 11:51 AM CDT): PSA trending down. Repeat PSA in 6 months Hypomagnesemia 01/08/2018 Vertebral artery stenosis 01/07/2018 CVA (cerebral vascular accident) 12/07/2017 Assessment & Plan (06/02/2025 5:23 PM CDT): Plavix previously stopped secondary to hemoptysis, no further episodes. Hemoglobin stable Continue Plavix 75mg Assessment & Plan (01/07/2024 3:10 PM CDT): Continue clopidogrel Stop smoking Monitor clinically. Assessment & Plan (04/23/2023 3:17 PM CDT): No further neurologic symptoms Control HLP Stop smoking Continue clopidorgrel Monitor clinically Control BP Assessment & Plan (10/02/2022 4:30 PM COSMETIC CONSULTANT): Continue clopidogrel Monitor clinically Control BP Control lipids. Stop smoking Assessment & Plan (03/22/2022 6:23 PM CDT): Currently asymptomatic. No significant neurologic sequelae. Will continue on low-dose aspirin. Encouraged to stop smoking. Control blood pressure. Assessment & Plan (09/24/2019 3:59 PM COSMETIC CONSULTANT): Continue clopidogrel Monitor clinically Stop smoking COPD (chronic obstructive pulmonary disease) Assessment & Plan (04/23/2023 3:16 PM CDT): Continue Trelegy Monitor clinically Assessment & Plan (03/22/2022 6:24 PM CDT): Continue with his Trelegy and continue to monitor clinically. Encouraged him to stop smoking. Assessment & Plan (04/21/2020 3:11 PM CDT): Trial on Trelegy and attempt coverage with insurance Adenomatous polyp Assessment & Plan (01/19/2025 1:29 PM CDT): Colonoscopy is due. Plan to schedule Assessment & Plan (01/07/2024 2:55 PM CDT): Plan repeat colonoscopy locally if possible with Dr. Aguirre or with at [facility]. Assessment & Plan (04/23/2023 3:15 PM CDT): Plan repeat colonoscopy in 2023 Assessment & Plan (10/02/2022 4:24 PM COSMETIC CONSULTANT): Adenomatous polyp in 11/2018. Plan repeat in 2023. Continue to monitor Assessment & Plan (10/25/2020 2:49 PM COSMETIC CONSULTANT): Reviewed Colonoscopy and plan repeat in 2021. Assessment & Plan (04/21/2020 3:12 PM CDT): Colonoscopy due in 2021 Encounters Date Type Department Care Team Description 08/02/2025 Refill [facility] [address] [facility] [address] [place], [place] [id number] Carmen Artis, TIRE MECHANIC-C Panlobular emphysema (HCC) 07/28/2025 Orders Only 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 [address] [facility] [address] [place] [address] Alysha Perkins Malignant neoplasm of overlapping sites of lung, unspecified laterality (HCC); SERENITY (generalized anxiety disorder) 07/27/2025 2:35 PM COSMETIC CONSULTANT - 07/27/2025 11:59 PM COSMETIC CONSULTANT Hospital Encounter [facility] [place] [address] [facility] [address] [place] [address] Hospital discharge follow-up; Leg swelling; Vitamin D deficiency Discharge Disposition: Home or Self Care 07/27/2025 1:15 PM COSMETIC CONSULTANT Office Visit [facility] - Primary [facility] [address] [facility] [address] [place], [place] [id number] Elizabeth Flor FNP Hospital discharge follow-up (Primary Dx); 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); Panlobular emphysema (HCC); Acute on chronic respiratory failure with hypoxia (HCC); Hypomagnesemia; Body mass index (BMI) 19.9 or less, adult; Underweight; Urinary retention; Vitamin D deficiency; Leg swelling; Carotid stenosis, left 07/27/2025 Results Follow-Up [facility] [address] [place], [place] [id number] Elizabeth Flor, TIRE MECHANIC CBC with Differential Once, Comprehensive metabolic panel Once, Magnesium Once, Additional followed-up results: 6 07/27/2025 Travel 07/21/2025 Telephone [facility] [address] [place] [address] Brian Ramos 07/14/2025 Refill [facility] [address] [place], [place] [id number] Brian Ramos Malignant neoplasm of overlapping sites of lung, unspecified laterality (HCC); SERENITY (generalized anxiety disorder) 07/01/2025 Telephone [facility] [address] [place] [address] Brian Ramos 07/01/2025 Refill [facility] [address] [place] [address] Brian Ramos R 06/16/2025 Orders Only [facility] [address] [place] [address] Virgil Beaulieu MD SERENITY (generalized anxiety disorder) (Primary Dx); Malignant neoplasm of overlapping sites of lung, unspecified laterality (HCC) 06/09/2025 Orders Only [facility] [address] [place], [place] [id number] Sonam Soto Malignant neoplasm of overlapping sites of lung, unspecified laterality (HCC) (Primary Dx) 06/09/2025 Refill [facility] [address] [place] [address] Sonam Soto Panlobular emphysema (HCC) 06/07/2025 Orders Only [facility] [address] [place] [address] Sonam Soto Malignant neoplasm of overlapping sites of lung, unspecified laterality (HCC) (Primary Dx); 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); Cerebrovascular accident (CVA) due to thrombosis of cerebral artery (HCC) 06/06/2025 Orders Only [facility] [address] [place] [address] Carmen Artis FNP-C Malignant neoplasm of overlapping sites of lung, unspecified laterality (HCC) 06/02/2025 3:00 PM CDT Telemedicine [facility] [address] [place] [address] Carmen Artis FNP-C Hyperglycemia (Primary Dx); Panlobular emphysema (HCC); Decreased appetite; 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); Depression, unspecified depression type; Cerebrovascular accident (CVA) due to thrombosis of cerebral artery (HCC); Anxiety about health; Hyponatremia; Hyperkalemia; Leukocytosis, unspecified type; Malignant neoplasm metastatic to liver (HCC) 05/31/2025 3:17 PM CDT - 05/31/2025 11:59 PM CDT Hospital Encounter [facility] [place] [address] [place] [address] Essential hypertension; Panlobular emphysema (HCC); Hypomagnesemia Discharge Disposition: Home or Self Care 05/31/2025 Telephone [facility] [address] [place] [address] Savannah Pardo 05/31/2025 Travel 05/31/2025 Orders Only [facility] [address] [place] [address] Carmen Artis, TIRE MECHANIC-C Essential hypertension (Primary Dx); Panlobular emphysema (HCC); Hypomagnesemia 05/23/2025 [facility] [address] [place] [address] Virgil Beaulieu MD Malignant neoplasm of overlapping sites of lung, unspecified laterality (HCC) (Primary Dx) 05/21/2025 Orders Only [facility] Care [address] [place] [address] [address] [place] [address] Carmen Artis, PEEWEE-Rayshawn 05/19/2025 4:37 PM CDT - 05/19/2025 11:59 PM CDT Hospital Encounter [address] [place] [address] Underweight; Body mass index (BMI) 19.9 or less, adult; Metastatic carcinoma to liver (HCC); Panlobular emphysema (HCC); Hospital discharge follow-up; Hypomagnesemia; Essential hypertension Discharge Disposition: Home or Self Care 05/19/2025 3:00 PM CDT Office Visit [address] [place] [address] Carmen Artis, TIRE MECHANIC-C Small cell carcinoma of left lung, unspecified part of lung (HCC) (Primary Dx); Underweight; Body mass index (BMI) 19.9 or less, adult; Metastatic carcinoma to liver (HCC); Panlobular emphysema (HCC); Hospital discharge follow-up; Hypomagnesemia; Essential hypertension; Constipation, unspecified constipation type; Right lower quadrant abdominal pain; Acute right-sided thoracic back pain; Hemoptysis; Urinary retention; Impaired mobility; Dependence on supplemental oxygen; Acute on chronic respiratory failure with hypoxia (HCC); Aspiration into airway, initial encounter; Cerebrovascular accident (CVA), unspecified mechanism (HCC); Carotid stenosis, left; Benign prostatic hyperplasia, unspecified whether lower urinary tract symptoms present; Congestive heart failure, unspecified HF chronicity, unspecified heart failure type (HCC) 05/19/2025 Travel 05/13/2025 Telephone [facility] [place] - Primary Care [address] [place] [address] Lynn Samayoa LPN from Last 3 Months Immunizations Immunization Administration Dates Next Due influenza, high-dose, quadrivalent (FLUZONE HIGH -DOSE) 10/02/2022 influenza, injectable, quadr ivalent, preservative free (AFLURIA/FLUARIX/FLULAVAL/FLUZONE) 08/04/2020 pneumococcal conjugate PCV 13 (PREVNAR 13) 11/18 pneumococcal polysaccharide PPV 23 (PNEUMOVAX 23 ) 10/02/2022 Family History Medical History Relation Name Comments Alcohol abuse Brother 1 No Known Problems Brother 2 Cancer Father No Known Problems Mother No Known Problems Sister 1 No Known Problems Sister 2 Relation Name Status Comments Brother 1 Brother 2 Alive Father Mother Sister 1 Alive Sister 2 Alive Social History Tobacco Use Types Packs/Day Years Used Date Smoking Tobacco: Former Cigarettes 0 Q uit: 04/2025 Smokeless Tobacco: Never Tobacco Cessation:Counseling Given: No Alcohol Use Standard Drinks/Week Comments Yes 1 (1 standard drink = 0.6 oz pur e alcohol) per day [facility] Utilities Answer Date Recorded In the past 12 months has th e [employer], gas, oil, or water company threatened to [...] any time in the past 12 m [facility], were you homeless or living in a senior living (including now)? No 05/19/2025 Sex and Gender Information Value Date Recorded Sex Assigned at Not on file Legal Sex Male 12:56 PM CDT Gender Identity Not on file Sexual Orientation Not on file Last Filed Vital Signs Vital Sign Reading Time Taken Comments Blood Pressure 130/72 07/27/2025 1:17 PM COSMETIC CONSULTANT Pulse 100 07/27/2025 1:17 PM COSMETIC CONSULTANT Temperature 36.4 C (97.6 F) 07/27/2025 1:17 PM COSMETIC CONSULTANT Respiratory Rate 16 05/15/2019 11:24 AM CDT Oxygen Saturation 97% 07/27/2025 1:17 PM COSMETIC CONSULTANT Inhaled Oxygen Concentration - - Weight 56.1 kg (123 lb 9.6 oz) 07/27/2025 1:17 P M COSMETIC CONSULTANT Height 182.9 cm (6') 07/27/2025 1:17 PM COSMETIC CONSULTANT Body Mass Index 16.76 07/27/2025 1:17 PM COSMETIC CONSULTANT Plan of Treatment Upcoming Encounters Date Type Department Care Team (Late st Contact Info) Description 08/09/2025 3:00 PM COSMETIC CONSULTANT Office Visit [facility] - Primary Care [address] [place] [address] Carmen Artis, TIRE MECHANIC-C [address] [place] [address] 11/08/2025 9:45 AM COSMETIC CONSULTANT Office Visit [facility] [place] - Primary Care [address] [place] [address] Virgil Beaulieu MD [address] [place] [address] Health Maintenance Due Date Last Done Comments Td, Tdap Vaccines Adult 01/13/1967 Shingrix (ZOSTER RECOMBINANT ) (1 of 2) 01/13/1998 RSV 60+ (1 - 1-dose 75+ series) 01/13/2023 Colonoscopy 12/03/2023 12/02/2018 Influenza Vaccination (#1) 04/23/202510/02, 08/04/2020 Medicare Annual Wellness 10/05/2025 025, 10/05/2024, 10/08/2022 Pneumococcal Vaccine: 50+ Years Completed 10/02/2022, 11/18/2018 HIB Vaccines Aged Out No longer eligi ble based on patient's age to complete this topic HPV Vaccines Aged Out No longer eligi ble based on patient's age to complete this topic Hepatitis A Vaccines Aged Out No long er eligible based on patient's age to complete this topic Hepatitis B Vaccines Aged Out No long er eligible based on patient's age to complete this topic IPV Vaccines Aged Out No longer eligi ble based on patient's age to complete this topic Meningococcal Vaccines Aged Out No lo nger eligible based on patient's age to complete this topic RSV Mab Nirsevimab (Beyfortu s) <20 months Aged Out No longer eligible b ased on patient's age to complete this topic Rotavirus Vaccines Aged Out No longer eligible based on patient's age to complete this topic Procedures Procedure Name Priority Date/Time Associated Diagnosis Comments VITAMIN B12 Routine 07/27/2025 3:06 PM COSMETIC CONSULTANT FOLATE Routine 07/27/2025 3:06 PM COSMETIC CONSULTANT BILL CBC AUTO DIFF Routine 07/27/2025 2: 50 PM COSMETIC CONSULTANT GFR FOR ADULT Routine 07/27/2025 2:50 PM COSMETIC CONSULTANT B NATRIURETIC PEPTIDE Routine 07/27/2025 2:50 PM COSMETIC CONSULTANT Hospital discharge follow-up Leg swelling 25-HYDROXYVITAMIN D Routine 07/27/2025 2 :50 PM COSMETIC CONSULTANT Hospital discharge follow-up Vitamin D deficiency TSH, 3RD GENERATION Routine 07/27/2025 2 :50 PM COSMETIC CONSULTANT Hospital discharge follow-up MAGNESIUM Routine 07/27/2025 2:50 PM COSMETIC CONSULTANT Hospital discharge follow-up COMPREHENSIVE METABOLIC PANEL Routine 07/27/2025 2:50 PM COSMETIC CONSULTANT Hospital discharge follow-up Leg swelling CBC WITH DIFFERENTIAL Routine 07/27/2025 2:50 PM COSMETIC CONSULTANT Hospital discharge follow-up Leg swelling GFR FOR ADULT Routine 05/31/2025 3:17 PM CDT BILL CBC AUTO DIFF Routine 05/31/2025 3: 17 PM CDT B NATRIURETIC PEPTIDE Routine 05/31/2025 3:17 PM CDT Essential hypertension Panlobular emphysema (HCC) Hypomagnesemia MAGNESIUM Routine 05/31/2025 3:17 PM CDT Essential hypertension Panlobular emphysema (HCC) Hypomagnesemia COMPREHENSIVE METABOLIC PANEL Routine 05/31/2025 3:17 PM CDT Essential hypertension Panlobular emphysema (HCC) Hypomagnesemia CBC WITH DIFFERENTIAL Routine 05/31/2025 3:17 PM CDT Essential hypertension Panlobular emphysema (HCC) Hypomagnesemia GFR FOR ADULT Routine 05/19/2025 4:46 PM CDT FlameStower CBC AUTO DIFF Routine 05/19/2025 4: 46 PM CDT GAMMA-GLUTAMYL TRANSFERASE (GGTP) Routine 05/19/2025 4:46 PM CDT Underweight Body mass index (BMI) 19.9 or less, adult Metastatic carcinoma to liver (HCC) Panlobular emphysema (HCC) Hospital discharge follow-up Hypomagnesemia Essential hypertension CRP, QUANT Routine 05/19/2025 4:46 PM CDT Underweight Body mass index (BMI) 19.9 or less, adult Metastatic carcinoma to liver (HCC) Panlobular emphysema (HCC) Hospital discharge follow-up Hypomagnesemia Essential hypertension MAGNESIUM Routine 05/19/2025 4:46 PM CDT Underweight Body mass index (BMI) 19.9 or less, adult Metastatic carcinoma to liver (HCC) Panlobular emphysema (HCC) Hospital discharge follow-up Hypomagnesemia Essential hypertension B NATRIURETIC PEPTIDE Routine 05/19/2025 4:46 PM CDT Underweight Body mass index (BMI) 19.9 or less, adult Metastatic carcinoma to liver (HCC) Panlobular emphysema (HCC) Hospital discharge follow-up Hypomagnesemia Essential hypertension COMPREHENSIVE METABOLIC PANEL Routine 05/19/2025 4:46 PM CDT Underweight Body mass index (BMI) 19.9 or less, adult Metastatic carcinoma to liver (HCC) Panlobular emphysema (HCC) Hospital discharge follow-up Hypomagnesemia Essential hypertension CBC WITH DIFFERENTIAL Routine 05/19/2025 4:46 PM CDT Underweight Body mass index (BMI) 19.9 or less, adult Metastatic carcinoma to liver (HCC) Panlobular emphysema (HCC) Hospital discharge follow-up Hypomagnesemia Essential hypertension CT CHEST, ABDOMEN, PELVIS WO CONTRAST STAT 05/19/2025 4:39 PM CDT Hemoptysis LOWER ENDOSCOPY Routine 12/02/2018 11:27 AM CDT Colon cancer screening from Last 3 Months or Most Recently Relevant to Health Maintenance Results * (ABNORMAL) Vitamin B12 (07/27/2025 3:06 PM COSMETIC CONSULTANT) Vitamin B12 >2,000(H) 200 - 978 pg/mL 07/27/2025 3:38 PM COSMETIC CONSULTANT [facility] 07/27/2025 3:06 PM COSMETIC CONSULTANT 07/27/2025 3:06 PM COSMETIC CONSULTANT us Elizabeth Flor TIRE MECHANIC LAB BLOOD ORDERABLES Final Result [facility] [address], [address] [place] [address], * (ABNORMAL) Folate (07/27/2025 3:06 PM COSMETIC CONSULTANT) Folate >20.0(H) 4.0 - 15.0 ng/mL 07/27/2025 9:31 PM COSMETIC CONSULTANT [facility] 07/27/2025 3:06 PM COSMETIC CONSULTANT 07/27/2025 8:56 PM COSMETIC CONSULTANT [facility] L Chacho TIRE MECHANIC LAB BLOOD ORDERABLES Final Result [facility] [address] [address] * Bill CBC auto diff (07/27/2025 2:50 PM COSMETIC CONSULTANT) Only the most recent of3 resultswithin the time period is included. 07/27/2025 2:50 PM COSMETIC CONSULTANT 07/27/2025 2:50 PM COSMETIC CONSULTANT Narrative [facility] - 07/27/2025 3:17 PM COSMETIC CONSULTANT NOTE: Critical results called to and read back by Alysha at 15:17 on 07/27/2025. [id number] [facility] Rosalva Chacho TIRE MECHANIC LAB BLOOD ORDERABLES Final Result Performing Organization Address [facility] Co de Phone Number [address] [address], [place] * B Natriuretic Peptide Once (07/27/2025 2:50 PM COSMETIC CONSULTANT) Only the most recent of3 resultswithin the time period is included. B NATRIURETIC PEPTIDE 48.0 0.0 - 100.0 pg/mL 07/27/2025 3:12 PM COSMETIC CONSULTANT [facility] Blood Venous blood / Unknown 07/27/2025 2:50 PM COSMETIC CONSULTANT 07/27/2025 2:50 PM COSMETIC CONSULTANT [facility] TIRE MECHANIC LAB BLOOD ORDERABLES Final Result [facility] [address], [address] [place] [address], [place] [phone] * GFR for Adult (07/27/2025 2:50 PM COSMETIC CONSULTANT) Only the most recent of3 resultswithin the time period is included. [facility] GFR for adult >60 mL/min/1.7 3m2 07/27/2025 3:15 PM COSMETIC CONSULTANT [facility] Comment: This estimated glomerular filtration rate (eGFR) was calculated using the CKD-EPI Creatinine Equation 2020, which does not use a race coefficient. eGFR is not reliable for patients with rapidly changing creatinine levels, extremes in muscle mass and body size, or altered diet patterns. Values should be interpreted in the context of the patient's full clinical presentation. 07/27/2025 2:50 PM COSMETIC CONSULTANT 07/27/2025 2:50 PM COSMETIC CONSULTANT Elizabeth Flor TIRE MECHANIC LAB BLOOD ORDERABLES Final Result [address], [address] [place] [address], [place] [phone] * 25-Hydroxyvitamin D Once (07/27/2025 2:50 PM COSMETIC CONSULTANT) [facility] Vitamin D 37.1 30.0 - 60.0 ng/mL 07/27/2025 3:34 PM COSMETIC CONSULTANT [facility] Blood Venous blood / Unknown 07/27/2025 2:50 PM COSMETIC CONSULTANT 07/27/2025 2:50 PM COSMETIC CONSULTANT Elizabeth Blackwell Chacho TIRE MECHANIC LAB BLOOD ORDERABLES Final Result [facility] [address], [address] [place] [address], [place] [phone] * (ABNORMAL) CBC with Differential Once (07/27/2025 2:50 PM COSMETIC CONSULTANT) Only the most recent of3 resultswithin the time period is included. WBC 33.48(HH) 4.10 - 10.90 10*3/uL 07/27/2025 3:17 PM COSMETIC CONSULTANT [facility] RBC 3.04(L) 4.26 - 5.70 10*6/uL 07/27/2025 3:17 PM COSMETIC CONSULTANT [facility] Hemoglobin 10.1(L) 12.4 - 17.5 g/dL 07/27/2025 3:17 PM COSMETIC CONSULTANT [facility] Hematocrit 30.8(L) 36.0 - 52.0 % 07/27/2025 3:17 PM COSMETIC CONSULTANT [facility] MCV 101.3(H) 83.5 - 100.2 fL 07/27/2025 3:17 PM COSMETIC CONSULTANT [facility] MCH 33.2 27.0 - 35.0 pg 07/27/2025 3:17 PM COSMETIC CONSULTANT [facility] MCHC 32.8 31.0 - 37.0 g/dL 07/27/2025 3:17 PM COSMETIC CONSULTANT [facility] Platelet Count 297 135 - 400 10*3 07/27/2025 3:17 PM COSMETIC CONSULTANT [facility] RDW CV 18.1(H) 10.6 - 14.3 % 07/27/2025 3:17 PM COSMETIC CONSULTANT [facility] MPV 9.4 6.7 - 12.0 fL 07/27/2025 3:17 PM COSMETIC CONSULTANT [facility] Neutrophils 89.90 40.00 - 96.00 % 07/27/2025 3:17 PM COSMETIC CONSULTANT [facility] Lymphocytes 3.50 0.00 - 50.00 % 07/27/2025 3:17 PM COSMETIC CONSULTANT [facility] Monocytes 5.20 0.00 - 20.00 % 07/27/2025 3:17 PM COSMETIC CONSULTANT [facility] Eosinophils 0.20 0.00 - 15.00 % 07/27/2025 3:17 PM COSMETIC CONSULTANT [facility] Basophils 0.10 0.00 - 3.00 % 07/27/2025 3:17 PM COSMETIC CONSULTANT [facility] Absolute Neutrophils 30.06(H) 2.04 - 6.90 10*3/uL 07/27/2025 3:17 PM COSMETIC CONSULTANT [facility] Absolute Lymphocytes 1.18 0.05 - 5.01 10*3/uL 07/27/2025 3:17 PM COSMETIC CONSULTANT [facility] Absolute Monocytes 1.75 0.05 - 2.04 10*3/uL 07/27/2025 3:17 PM COSMETIC CONSULTANT [facility] Absolute Eosinophils 0.08 0.00 - 0.50 10*3/uL 07/27/2025 3:17 PM COSMETIC CONSULTANT [facility] Absolute Basophils 0.04 0.00 - 0.31 10*3/uL 07/27/2025 3:17 PM COSMETIC CONSULTANT [facility] Immature Granulocytes 1.10 0.00 - 3.00 % 07/27/2025 3:17 PM COSMETIC CONSULTANT [facility] Blood Venous blood / Unknown 07/27/2025 2:50 PM COSMETIC CONSULTANT 07/27/2025 2:50 PM COSMETIC CONSULTANT Narrative [facility] - 07/27/2025 3:17 PM COSMETIC CONSULTANT NOTE: Critical results called to and read back by Alysha at 15:17 on 07/27/2025. [id number] [facility] BLOOD ORDERABLES Final Result [facility] [address], [address] [place] [address], [place] [phone] * TSH, 3rd generation Once (07/27/2025 2:50 PM COSMETIC CONSULTANT) [facility] TSH, 3rd Gen 2.070 0.270 - 4.670 u[IU]/mL 07/27/2025 3:51 PM COSMETIC CONSULTANT [facility] Blood Venous blood / Unknown 07/27/2025 2:50 PM COSMETIC CONSULTANT 07/27/2025 2:50 PM COSMETIC CONSULTANT Elizabeth Chacho FNP LAB BLOOD ORDERABLES Final Result [facility] [address], [address] [place] [address], [place] [phone] * Magnesium Once (07/27/2025 2:50 PM COSMETIC CONSULTANT) Only the most recent of3 resultswithin the time period is included. Pathologist [facility] Magnesium 1.7 1.6 - 3.0 mg/dL 07/27/2025 3:15 PM COSMETIC CONSULTANT [facility] Blood Venous blood / Unknown 07/27/2025 2:50 PM COSMETIC CONSULTANT 07/27/2025 2:50 PM COSMETIC CONSULTANT Elizabeth Flor [facility] LAB BLOOD ORDERABLES Final Result [facility] [address], [address] [place] [address], [place] [phone] * (ABNORMAL) Comprehensive metabolic panel Once (07/27/2025 2:50 PM COSMETIC CONSULTANT) Only the most recent of3 resultswithin the time period is included. Sodium 131 131 - 145 meq/L 07/27/2025 3:15 PM COSMETIC CONSULTANT [facility] Potassium 4.7 3.3 - 5.0 meq/L 07/27/2025 3:15 PM COSMETIC CONSULTANT [facility] Chloride 87(L) 96 - 111 meq/L 07/27/2025 3:15 PM COSMETIC CONSULTANT [facility] CO2 34(H) 20 - 31 meq/L 07/27/2025 3:15 PM COSMETIC CONSULTANT [facility] BUN 13 5 - 23 mg/dL 07/27/2025 3:15 PM COSMETIC CONSULTANT [facility] Creatinine 0.50(L) 0.60 - 1.70 mg/dL 07/27/2025 3:15 PM COSMETIC CONSULTANT [facility] Glucose 105 72 - 113 mg/dL 07/27/2025 3:15 PM COSMETIC CONSULTANT [facility] Calcium 9.0 8.2 - 10.2 mg/dL 07/27/2025 3:15 PM COSMETIC CONSULTANT [facility] CALCIUM, CORRECTED 9.1 8.2 - 10.2 mg/dL 07/27/2025 3:15 PM COSMETIC CONSULTANT [facility] Comment:Calcium corrected fo r Albumin of less than 4.0. Bilirubin Total 0.3 0.1 - 0.9 mg/dL 07/27/2025 3:15 PM COSMETIC CONSULTANT [facility] Alkaline Phosphatase 153(H) 38 - 137 U/L 07/27/2025 3:15 PM COSMETIC CONSULTANT [facility] ALT (SGPT) 57(H) 0 - 40 U/L 07/27/2025 3:15 PM COSMETIC CONSULTANT [facility] AST (SGOT) 39(H) 8 - 35 U/L 07/27/2025 3:15 PM COSMETIC CONSULTANT [facility] Total Protein 6.4 6.1 - 8.2 g/dL 07/27/2025 3:15 PM COSMETIC CONSULTANT [facility] Albumin 3.9 3.7 - 5.1 g/dL 07/27/2025 3:15 PM COSMETIC CONSULTANT [facility] Anion Gap 10 8 - 16 NA 07/27/2025 3:15 PM COSMETIC CONSULTANT [facility] Alb/Glob Ratio Calc 1.6 1.1 - 2.2 g/dL 07/27/2025 3:15 PM COSMETIC CONSULTANT [facility] BUN/Creatinine Ratio 26 mg/dL 07/27/2025 3:15 PM COSMETIC CONSULTANT [facility] Blood Venous blood / Unknown 07/27/2025 2:50 PM COSMETIC CONSULTANT 07/27/2025 2:50 PM COSMETIC CONSULTANT Elizabeth Flor TIRE MECHANIC LAB BLOOD ORDERABLES Final Result [facility] [address], [address] [place] [address], [place] [phone] * (ABNORMAL) Gamma-Glutamyl Transferase (GGTP) Once (05/19/2025 4:46 PM CDT) Pathologist [facility] Gamma-glutamyl transpeptidase 103(H) 11 - 51 U/L 05/19/2025 9:23 PM CDT [facility] Blood Venous blood / Unknown 05/19/2025 4:46 PM CDT 05/19/2025 8:52 PM CDT Carmen Artis TIRE MECHANIC-C LAB BLOOD ORDERABLES Cherrie l Result [facility] CNT LAB [facility] [address] [place] [address] * CRP, Quant Once (05/19/2025 4:46 PM CDT) HsCRP Quant 0.30 0.02 - 0.80 mg/dL 05/19/2025 5:12 PM CDT [facility] Comment: Cardiac Risk Stratification Utilizing High Sensitivity CRP: Low Risk: <0.1 mg/dl Average Risk: 0.1 - 0.3 mg/dl High Risk: >0.3 mg/dl Acute Inflammation: >0.8 mg/dl Blood Venous blood / Unknown 05/19/2025 4:46 PM CDT 05/19/2025 4:46 PM CDT us Carmen Rizvi Artis TIRE MECHANIC-C LAB BLOOD ORDERABLES Cherrie l Result [facility] [address], [address] [place] [address], [place] [phone] * CT Chest, abdomen, and pelvis withOUT contrast (05/19/2025 4:39 PM CDT) Anatomical Region Laterality Modality Chest, Abdomen, Pelvis N/A Computed Tomography Narrative 05/19/2025 4:51 PM CDT EXAM: CT CHEST, ABDOMEN PELVIS WITHOUT CONTRAST HISTORY: Hemoptysis COMPARISON: CTA chest from 03/02/[address] from 03/01/2025. FINDINGS: Axial CT images of the chest, abdomen pelvis without contrast and multiplanar reformatted images. Vascular calcifications. Coronary artery calcifications. The heart is not enlarged. The index nodule in the right upper [...] slice selection. New consolidation in the lingula. Moderate to severe emphysema. Secretions in the trachea and right and left bronchi. Left hilar/suprahilar and mediastinal lymphadenopathy appears increased but comparison is suboptimal without intravenous contrast. Bilateral adrenal gland nodules.. The left adrenal gland nodule appears increased in size. Extensive hepatic metastasis. The enhanced appearance of the pancreas and spleen is unremarkable. Multiple nonobstructing right and left renal stones. Right renal cortical calcifications. No hydronephrosis. Limited evaluation of the colon small bowel without intravenous or oral contrast. However, no dilated loops of bowel. No pericolonic fat stranding. The appendix is normal. Cuadra catheter in the urinary bladder. Bladder stones. Enlarged, heterogeneous prostate gland. ASVD. Degenerative changes to the spine, pelvis and hips. IMPRESSION: Mass-like consolidation in the anterior left upper lobe persists but appears slightly decreased in size. This appearance may be partially attributable to differences in slice selection. However, there is new consolidation in the lingula. Left hilar/suprahilar and mediastinal lymphadenopathy appears increased. A comparison is suboptimal without intravenous contrast. Follow-up PET CT is recommended. Some secretions in the trachea and right and left bronchi. Correlate for aspiration. Attention at follow-up. Extensive hepatic metastasis are again noted. Please see above description and additional findings. All CT scans are performed using dose optimization techniques as appropriate to the performed exam and include at least one of the following: Automated exposure control, adjustment of the mA and/or kV according to size, and the use of iterative reconstruction technique. Procedure Note Edouard Hernández, DO - 05/19/2025 EXAM: CT CHEST, ABDOMEN PELVIS WITHOUT CONTRAST HISTORY: Hemoptysis COMPARISON: CTA chest from 03/02/[address] from 03/01/2025. FINDINGS: Axial CT images of the chest, abdomen pelvis without contrast andmultiplanar reformatted images. Vascular calcifications. Coronary artery calcifications. The heart is not enlarged. The index nodule in the right upper lobe is grossly stable allowing fordifferences in slice selection, measuring approximately 10 mm. Grosslystable index nodule in the left upper lobe anteriorly (axial image 22). The consolidation in the anterior left upper lobe persists but appearsslightly decreased in size. This appearance may be partially attributableto differences in slice selection. New consolidation in the lingula. Moderate to severe emphysema. Secretions in the trachea and right and leftbronchi. Left hilar/suprahilar and mediastinal lymphadenopathy appears increasedbut comparison is suboptimal without intravenous contrast. Bilateral adrenal gland nodules.. The left adrenal gland nodule appearsincreased in size. Extensive hepatic metastasis. The enhanced appearance of the pancreas and spleen is unremarkable. Multiple nonobstructing right and left renal stones. Right renal corticalcalcifications. No hydronephrosis. Limited evaluation of the colon small bowel without intravenous or oralcontrast. However, no dilated loops of bowel. No pericolonic fatstranding. The appendix is normal. Cuadra catheter in the urinary bladder. Bladder stones. Enlarged,heterogeneous prostate gland. ASVD. Degenerative changes to the spine, pelvis and hips. IMPRESSION: Mass-like consolidation in the anterior left upper lobe persists butappears slightly decreased in size. This appearance may be partiallyattributable to differences in slice selection. However, there is new consolidation in the lingula. Left hilar/suprahilar and mediastinal lymphadenopathy appears increased.A comparison is suboptimal without intravenous contrast. Follow-up PET CTis recommended. Some secretions in the trachea and right and left bronchi. Correlate foraspiration. Attention at follow-up. Extensive hepatic metastasis are again noted. Please see above description and additional findings. All CT scans are performed using dose optimization techniques asappropriate to the performed exam and include at least one of the following: Automated exposure control, adjustment ofthe mA and/or kV according to size, and the use of iterativereconstruction technique. Carmen Rizvi Artis TIRE MECHANIC-C IMG CT ORDERABLES Final R esult * Colonoscopy; External (12/02/2018 11:27 AM CDT) Virgil Beaulieu MD PROCEDURE/MINOR SURGICAL PERF ORMABLES Final Result from Last 3 Months or Most Recently Relevant to Health Maintenance Insurance [facility] MEDICARE ADVANTAGE Care Teams Supplemental Manager Relationship Specialty Start Date End Date Virgil Beaulieu MD [address] [place] [address] PCP - General Internal Medicine 07/31/18
--- OUTSIDE RECORDS SUMMARY | 2025-08-08 11:53 | XMS_ITS ---
Author Organization [facility] Address [address] [place] [address] Care Team Providers Care Beer Coil Cleaner Name Role Phone Virgil Beaulieu MD Primary Care Provider [phone] Active Problems Problem Noted Date Diagnosed Date [...] Continue chemotherapy treatment per oncology team at [facility] Primary cancer of left upper lobe of lung 2024 Cerebral infarction 01/19/2025 Overview (01/19/2025): Jul 23, 2024 Entered By: GIL LEWIS Comment: right sided weakness B12 deficiency 03/13/2021 Assessment & Plan (01/07/2024 3:09 PM CDT): Add B12 to today's labs Assessment & Plan (10/02/2022 4:26 PM PHOTOTYPESETTING EQUIPMENT MONITOR): Add B12 to today's labs Assessment & Plan (03/21/2022 5:08 PM CDT): Add B12 level to today's labs B12 1cc IM today and repeat monthly Repeat level in three months. Assessment & Plan (03/13/2021 12:22 PM CDT): Add B12 level to today's labs B12 1cc IM today Elevated MCV 10/25/2020 Assessment & Plan (10/25/2020 2:40 PM PHOTOTYPESETTING EQUIPMENT MONITOR): Add B12 level to today's labs Abdominal bruit 10/25/2020 Assessment & Plan (01/07/2024 3:08 PM CDT): Reviewed ultrasound from 2020 Repeat Abdominal ultrasound for assessment of abdominal aorta. Assessment & Plan (10/25/2020 2:49 PM PHOTOTYPESETTING EQUIPMENT MONITOR): Abdominal ultrasound to assess aorta. Essential hypertension 09/24/2019 Assessment & Plan (01/07/2024 3:07 PM CDT): Continue to monitor Low sodium diet Assessment & Plan (04/23/2023 3:16 PM CDT): Continue low sodium diet and keep BP log for review. Assessment & Plan (10/02/2022 4:27 PM PHOTOTYPESETTING EQUIPMENT MONITOR): Continue current regimen with diet and low sodium and keep BP log Assessment & Plan (03/22/2022 6:24 PM CDT): Continue current regimen blood pressure control and monitor clinically. Assessment & Plan (10/25/2020 2:43 PM PHOTOTYPESETTING EQUIPMENT MONITOR): Hypertension is improving with treatment. Continue current [...] appointment. Assessment & Plan (09/24/2019 3:57 PM PHOTOTYPESETTING EQUIPMENT MONITOR): Hypertension is worsening. Dietary sodium restriction. Stop smoking. Medication changes per orders. Blood pressure will be reassessed in 4 weeks. Add lisinopril 10mg daily BMP and BP check in two weeks with nursing staff On statin therapy 09/24/2019 Panlobular emphysema 11/18/2018 Assessment & Plan (06/02/2025 5:24 PM CDT): Continue DuoNeb treatments Continue Mucinex 1200mg BID Assessment & Plan (10/02/2022 4:31 PM PHOTOTYPESETTING EQUIPMENT MONITOR): Schedule PFT at [facility] Encourage to stop smoking Continue current medications. Assessment & Plan (10/25/2020 2:40 PM PHOTOTYPESETTING EQUIPMENT MONITOR): COPD is improving with treatment. Continue current medications. Assessment & Plan (09/24/2019 3:58 PM PHOTOTYPESETTING EQUIPMENT MONITOR): COPD is improving with treatment. Medication changes [...] smoking Assessment & Plan (10/02/2022 4:25 PM PHOTOTYPESETTING EQUIPMENT MONITOR): Encourage to stop smoking. Reviewed CT from April 13: IMPRESSION: No acute cardiopulmonary findings. Stable 1.2 cm right upper lobe pulmonary nodule on 0.4 cm left upper lobe pulmonary nodule. Emphysema. Atherosclerosis including coronary arteries. Recommend continued annual screening with low-dose CT in 12 months. Bilateral renal nonobstructing calculi. Assessment & Plan (10/25/2020 2:41 PM PHOTOTYPESETTING EQUIPMENT MONITOR): Encourage to stop smoking. Assessment & Plan (04/21/2020 3:11 PM CDT): Stop smoking Assessment & Plan (09/24/2019 4:00 PM PHOTOTYPESETTING EQUIPMENT MONITOR): Stop smoking Assessment & Plan (04/13/2019 1:42 [...] etiology. Assessment & Plan (10/02/2022 4:30 PM PHOTOTYPESETTING EQUIPMENT MONITOR): Reviewed recent CT Continue to monitor Assessment & Plan (03/22/2022 6:24 PM CDT): Repeat imaging as scheduled. Assessment & Plan (04/21/2020 3:09 PM CDT): Schedule CT chest, non-contrast, lung protocol for follow up of nodule. Assessment & Plan (09/24/2019 4:00 PM PHOTOTYPESETTING EQUIPMENT MONITOR): Schedule CT of lung, non-contrast Assessment & Plan (03/17/2019 11:59 AM CDT): Request recommendations from Dr. Ayala (Pulmonary at [facility]). Mixed hyperlipidemia 11/18/2018 Assessment & Plan (01/07/2024 3:09 PM CDT): Resume atorvastatin Repeat lipids in 6 months Assessment & Plan (10/02/2022 4:26 PM PHOTOTYPESETTING EQUIPMENT MONITOR): Continue atorvastatin Repeat labs in 6 months Assessment & Plan (10/25/2020 2:40 PM PHOTOTYPESETTING EQUIPMENT MONITOR): Lipid abnormalities are improving with treatment. Pharmacotherapy as ordered. Lipids will be reassessed in 6 months. Assessment & Plan (04/21/2020 3:11 PM CDT): Lipid abnormalities are improving with treatment. Pharmacotherapy as ordered. Lipids will be reassessed in 6 months. Assessment & Plan (09/24/2019 4:00 PM PHOTOTYPESETTING EQUIPMENT MONITOR): Lipid abnormalities are improving with treatment. Pharmacotherapy [...] aspirin. Assessment & Plan (10/25/2020 2:44 PM PHOTOTYPESETTING EQUIPMENT MONITOR): Schedule bilateral carotid doppler Assessment & Plan [...] CTA carotids. Referral to Dr. Bazan at [facility] History of right common carotid artery [...] needed Assessment & Plan (10/02/2022 4:26 PM PHOTOTYPESETTING EQUIPMENT MONITOR): GERD precautions and acid reduction as needed Assessment & Plan (03/22/2022 6:24 PM CDT): Reflux precautions and acid reduction [id number] as needed Assessment & Plan (10/25/2020 2:42 PM PHOTOTYPESETTING EQUIPMENT MONITOR): GERD precautions and acid reduction with famotidine [...] medications Assessment & Plan (10/02/2022 4:31 PM PHOTOTYPESETTING EQUIPMENT MONITOR): Continue tamsulosin PSA trended downward Urology follow up if needed. Assessment & Plan (03/22/2022 6:24 PM CDT): NEIL and PSA on follow-up Assessment & Plan (10/25/2020 2:42 PM PHOTOTYPESETTING EQUIPMENT MONITOR): Continue to monitor symptoms. Discussed alpha chary [...] BP Assessment & Plan (10/02/2022 4:30 PM PHOTOTYPESETTING EQUIPMENT MONITOR): Continue clopidogrel Monitor clinically Control BP Control lipids. Stop smoking Assessment & Plan (03/22/2022 6:23 PM CDT): Currently asymptomatic. No significant neurologic sequelae. Will continue on low-dose aspirin. Encouraged to stop smoking. Control blood pressure. Assessment & Plan (09/24/2019 3:59 PM PHOTOTYPESETTING EQUIPMENT MONITOR): Continue clopidogrel Monitor clinically Stop smoking COPD [...] possible with Dr. Aguirre or with at [facility]. Assessment & Plan (04/23/2023 3:15 PM CDT): Plan repeat colonoscopy in 2023 Assessment & Plan (10/02/2022 4:24 PM PHOTOTYPESETTING EQUIPMENT MONITOR): Adenomatous polyp in 11/2018. Plan repeat in 2023. Continue to monitor Assessment & Plan (10/25/2020 2:49 PM PHOTOTYPESETTING EQUIPMENT MONITOR): Reviewed Colonoscopy and plan repeat in 2021. Assessment & Plan (04/21/2020 3:12 PM CDT): Colonoscopy due in 2021 Current Treatment and Therapy Plans No current plan information found. Past Treatment and Therapy Plans No past plan information found. Lifetime Dose Tracking * Chemical Lifetime Dose Automatic Entry Manual Entr y Radiation 17.2 mGy 17.2 mGy 0 mGy
--- OUTSIDE RECORDS SUMMARY | 2025-08-08 11:54 | XMS_ITS | Encounter Summary ---
Author Organization [facility] Address [address] [place] [address] Care Team Providers Care Computerized Machine Fabric Cutter Name Role Phone Virgil Beaulieu MD Primary Care Provider [phone] Encounter Details Date Type Department Care Team (Late st Contact Info) Description 06/06/2025 Orders Only [facility] [place] - Primary Care [address] [place] [address] Carmen Artis, HAIR WORKER-C [address] [facility] [address] [place] [address] Malignant neoplasm of overlapping sites of lung, unspecified laterality (HCC) Social History Tobacco Use Types Packs/Day Years Used Date Smoking Tobacco: Every Day Cigarettes Smokeless Tobacco: Never Alcohol Use Standard Drinks/Week Comments Yes 1 (1 standard drink = 0.6 oz pur e alcohol) per day [facility] Utilities Answer Date Recorded In the past 12 months has [employer], gas, oil, or water company threatened [...] were you homeless or living in a care home (including now)? No 05/19/2025 Sex and Gender Information Value Date Recorded Sex Assigned at Not on file Legal Sex Male 12:56 PM CDT Gender Identity Not on file Sexual Orientation Not on file documented as of this encounter Plan of Treatment Upcoming Encounters Date Type Department Care Team (Late st Contact Info) Description 08/09/2025 3:00 PM MEDICAL VOUCHER CLERK Office Visit [facility] - Primary Care [address] [place] [address] Carmen Artis FNP-C [address] [place] [address] 11/08/2025 9:45 AM MEDICAL VOUCHER CLERK Office Visit [facility] [place] - Primary Care [address] [place] [address] Virgil Beaulieu MD [address] [place] [address] documented as of this encounter Visit Diagnoses Diagnosis Malignant neoplasm of overlapping sites of lung, unspecified laterality (HCC) documented in this encounter Additional Health Concerns Health Status Noted Date Alive and well 07/02/2024 Assessment Noted Time PHQ-9 Depression Total Score: 0 11/19/19 25 12:46 PM MEDICAL VOUCHER CLERK A fall risk assessment has been complete d for the patient 06/02/2025 5:36 PM CDT documented as of this encounter Care Teams Computerized Machine Fabric Cutter Relationship Specialty Start Date End Date Virgil Beaulieu MD [address] [place] [address] PCP - General Internal Medicine 07/31/18 documented as of this encounter
[2025-08-08] MEDS: ondansetron 2 mg/ML SDV 2 mL 4 MG IVP (12:17)
[2025-08-08] MEDS: HYDROmorphone 0.5 MG/0.5 ML INJ 1 MG IVP (12:17)
[2025-08-08 12:21] LABS: Hematocrit 30.5 % (37-53); Hemoglobin 9.50 g/dL (11.27-16.99); Mean Corpuscular HGB Conc 31.1 g/dL (30-55); Mean Corpuscular Hemoglobin 33.1 pg (27-33); Mean Corpuscular Volume 106.3 fl (82-101); Nucleated Red Blood Cells % 0 %; Platelet Count 297 10^3/cmm (157-399); Red Blood Count 2.87 10^6/uL (3.85-5.65); White Blood Count 11.42 10^3/uL (3.29-11.43)
[2025-08-08 12:25] LABS: Glucose Urine UA Negative (Normal); Nitrate Urine Negative (Negative); Specific Gravity, Urine 1.010 (1.005-1.030)
[2025-08-08 12:30] VITALS: BP 134/70; PULSE 95; RESP 16; O2SAT 97
[2025-08-08 12:30] LABS: Add Urine Microscopic? YES
[2025-08-08 12:48] LABS: UA Slide Review UA Slide Review Perf
[2025-08-08 12:49] LABS: Alanine Aminotransferase 77 U/L (0-41); Albumin Level 3.7 g/dL (3.5-5.2); Alkaline Phosphatase 184 U/L (40-130); Anion Gap 14.1 (5-19); Aspartate Amino Transferase 68 U/L (0-40); Blood Urea Nitrogen 20 mg/dL (8-23); Calcium 9.3 mg/dL (8.5-10.5); Carbon Dioxide 33 mmol/L (22-29); Chloride 95 mmol/L (98-107); Globulin 2.2 g/dL (1.3-4.6); Glucose 121 mg/dL (65-115); Lipase 11 U/L (13-60); Osmolality Calculated 288 mOsm/kg (285-295); Potassium 5.1 mmol/L (3.5-5.1); Sodium 137 mmol/L (136-145); Total Protein 5.9 g/dL (6.6-8.7)
[2025-08-08 13:17] VITALS: BP 138/70; PULSE 93; RESP 23; O2SAT 100
--- OUTSIDE RECORDS SUMMARY | 2025-09-18 18:00 | XMS_ITS | Clinical Summary ---
Author Organization Unknown Care Team Providers Care Ux Developer Designer Name Role Phone MICHELLE GARRISON, CARMEN Unavailable Unavailable WINDY RAUSCH, MELISSA Unavailable Unavailable Payers Payer Name Policy Type Policy Number Effective Date Expira tion Date [facility] OPTUM PROGRAM - PDGM Problems Condition Name Condition Details Condition Category Status Onset Date Resolution Date Last Treatment Date Treating Clinician Comments SEPSIS, UNSPECIFIED ORGANISM Active 2024-09 00:00: 00 PNEUMONITIS DUE TO INHALATION OF FOOD AND VOMIT Active 09-23 00:00: 00 CHR OBSTRUCTIVE PULMON DISEASE WITH (ACUTE) LOWER RESP INFCT Active 09-23 00:00: 00 PANLOBULAR EMPHYSEMA Active 09-23 00:00: 00 UNSPECIFIED SEVERE PROTEIN-DENISE UMAIR MALNUTRITION Active 09-23 00:00: 00 ACUTE RESPIRATORY FAILURE WITH HYPERCAPNIA Active 09-23 00:00: 00 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 Active 09-23 00:00: 00 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 Active 09-23 00:00: 00 SECONDARY MALIGNANT NEOPLASM OF BONE Active 09-23 00:00: 00 ACUTE AND CHRONIC RESPIRATORY FAILURE WITH HYPOXIA Active 09-23 00:00: 00 OTHER DRUG-INDUCED PANCYTOPENIA Active 09-23 00:00: 00 ADVERSE EFFECT OF ANTINEOPLAST IC AND IMMUNOSUP DRUGS, SUBS Active 09-23 00:00: 00 ESSENTIAL (PRIMARY) HYPERTENSION Active 09-23 00:00: 00 ELEVATED WHITE BLOOD CELL COUNT, UNSPECIFIED Active 09-23 00:00: 00 HYPO-OSMOLAL ITY AND HYPONATREMIA Active 09-23 00:00: 00 HYPERKALEMIA Active 09-23 00:00: 00 OTHER HYPERLIPIDEM IA Active 09-23 00:00: 00 DEPRESSION, UNSPECIFIED Active 09-23 00:00: 00 ANXIETY DISORDER, UNSPECIFIED Active 09-23 00:00: 00 ATHSCL HEART DISEASE OF [place] CORONARY ARTERY W/O ANG PCTRS Active 09-23 00:00: 00 BENIGN PROSTATIC HYPERPLASIA WITHOUT LOWER URINRY TRACT SYMP Active 09-23 00:00: 00 HYPERGLYCEMI A, UNSPECIFIED Active 09-23 00:00: 00 GASTRO-ESOPH AGEAL REFLUX DISEASE WITHOUT ESOPHAGITIS Active 09-23 00:00: 00 PRSNL HX OF TIA (TIA), AND CEREB INFRC W/O RESID DEFICITS Active 09-23 00:00: 00 ENCOUNTER FOR FITTING AND ADJUSTMENT OF URINARY DEVICE Active 09-23 00:00: 00 PRESENCE OF CORONARY ANGIOPLASTY IMPLANT AND GRAFT Active 09-23 00:00: 00 PERSONAL HISTORY OF NICOTINE DEPENDENCE Active 09-23 00:00: 00 INTERMEDIATE (CURRENT) USE OF ANTITHROMBOT ICS/ANTIPLAT ELETS Active 09-23 00:00: 00 INTERMEDIATE (CURRENT) USE OF OPIATE ANALGESIC Active 09-23 00:00: 00 Allergies, Adverse Reactions, Alerts Allergy Name Allergy Type Status Severity Reaction(s) Onset Date Inactive Date Treating Clinician Comments BUDESONIDE Propensity to adverse reactions Active 2024-09 12:31: 32 Medications Ordered Medication Name Filled Medication Name Start Date Stop Date Current Medication? Ordering Clinician Indication Dosage Frequency Signature (SIG) Comments Components alprazolam 0.5 mg tablet 06-03 00:00: 00 07-20 23:59 :00 No [id number] 1 tablet EVERY 6 HOURS 1 tablet EVERY 6 HOURS (route: oral) Med Classific ation: Central Nervous System Agents atorvastati n 80 mg tablet 06-03 00:00: 00 07-20 23:59 :00 No [id number] 1 tablet DAILY 1 tablet DAILY (route: oral) Med Classific ation: Cardiovas cular Therapy Agents B-Complex tablet 06-03 00:00: 00 07-20 23:59 :00 No [id number] 1 tablet DAILY 1 tablet DAILY (route: oral) Med Classific ation: Electroly te Balance-N utritiona l Products benzonatate 200 mg capsule 06-03 00:00: 00 07-20 23:59 :00 No [id number] 1 capsule 3 TIMES DAILY 1 capsule 3 TIMES DAILY (route: oral) Med Classific ation: Respirato ry Therapy Agents clopidogrel 75 mg tablet 06-03 00:00: 00 07-20 23:59 :00 No [id number] 1 tablet DAILY 1 tablet DAILY (route: oral) Med Classific ation: Hematolog ical Agents ferrous gluconate 324 mg (37.5 mg iron) tablet 06-03 00:00: 00 07-20 23:59 :00 No [id number] 1 tablet DAILY 1 tablet DAILY (route: oral) Med Classific ation: Electroly te Balance-N utritiona l Products folic acid 1 mg tablet 06-03 00:00: 00 07-20 23:59 :00 No [id number] 1 tablet DAILY 1 tablet DAILY (route: oral) Med Classific ation: Electroly te Balance-N utritiona l Products furosemide 40 mg tablet 06-03 00:00: 00 07-20 23:59 :00 No [id number] 1 tablet DAILY 1 tablet DAILY (route: oral) Med Classific ation: Cardiovas cular Therapy Agents hydrocodone 5 mg-acetamin ophen 325 mg tablet 06-03 00:00: 00 07-20 23:59 :00 No [id number] 1 tablet EVERY 4 HOURS 1 tablet EVERY 4 HOURS (route: oral) Med Classific ation: Analgesic , Anti-infl ammatory or Antipyret ic ipratropium 0.5 mg-albutero l 3 mg (2.5 mg base)/3 mL nebulizatio n soln 06-03 00:00: 00 07-20 23:59 :00 No [id number] 1 mL EVERY 6 HOURS 1 mL EVERY 6 HOURS (route: inhalation ) Med Classific ation: Respirato ry Therapy Agents Lidoderm 5 % topical patch 06-03 00:00: 00 07-20 23:59 :00 No [id number] 1 adhesiv e patch, medicat ed DIRECTED 1 adhesive patch, medicated DIRECTED (route: topical) Med Classific ation: Dermatolo gical Mucinex 600 mg tablet, extended release 06-03 00:00: 00 07-20 23:59 :00 No [id number] 2 tablet 2 TIMES DAILY 2 tablet 2 TIMES DAILY (route: oral) Med Classific ation: Respirato ry Therapy Agents naloxone 4 mg/actuatio n nasal spray 06-03 00:00: 00 07-20 23:59 :00 No [id number] Per instruc tions NEEDED Per instructio ns NEEDED (route: nasal) Med Classific ation: Antidotes and other Reversal Agents ondansetron HCl 8 mg tablet 06-03 00:00: 00 07-20 23:59 :00 No [id number] 1 tablet EVERY 6 HOURS 1 tablet EVERY 6 HOURS (route: oral) Med Classific ation: Gastroint estinal Therapy Agents tamsulosin 0.4 mg capsule 06-03 00:00: 00 07-20 23:59 :00 No [id number] 2 capsule DAILY 2 capsule DAILY (route: oral) Med Classific ation: Genitouri nary Therapy Thera-M 9 mg iron-400 mcg tablet 06-03 00:00: 00 07-20 23:59 :00 No [id number] 1 tablet DAILY 1 tablet DAILY (route: oral) Med Classific ation: Electroly te Balance-N utritiona l Products thiamine HCl (vitamin B1) 100 mg tablet 06-03 00:00: 00 07-20 23:59 :00 No [id number] 1 tablet DAILY 1 tablet DAILY (route: oral) Med Classific ation: Electroly te Balance-N utritiona l Products Trelegy Ellipta 100 mcg-62.5 mcg-25 mcg powder for inhalation 06-03 00:00: 00 07-20 23:59 :00 No [id number] 1 inhalat ion DAILY 1 inhalation DAILY (route: inhalation ) Med Classific ation: Respirato ry Therapy Agents Vitamin D3 25 mcg (1,000 unit) tablet 06-03 00:00: 00 07-20 23:59 :00 No [id number] 1 tablet DAILY 1 tablet DAILY (route: oral) Med Classific ation: Electroly te Balance-N utritiona l Products oxygen gas for inhalation 06-07 00:00: 00 07-20 23:59 :00 No [id number] 2 Liter O2 - CONTINUOUS 2 Liter O2 - CONTINUOUS (route: inhalation ) Med Classific ation: Medical Supplies and Durable Medical Equipment (DME) aluminum-ma g hydroxide-s imethicone 200 mg-200 mg-20 mg/5 mL oral susp 2024-09 00:00: 00 Yes [id number] 15 mL EVERY 6 HOURS 15 mL EVERY 6 HOURS (route: oral) Med Classific ation: Gastroint estinal Therapy Agents atorvastati n 20 mg tablet 2024-09 00:00: 00 Yes [id number] 1 tablet BEDTIME 1 tablet BEDTIME (route: oral) Med Classific ation: Cardiovas cular Therapy Agents clopidogrel 75 mg tablet 2024-09 00:00: 00 Yes [id number] 1 tablet DAILY 1 tablet DAILY (route: oral) Med Classific ation: Hematolog ical Agents furosemide 40 mg tablet 2024-09 00:00: 00 Yes [id number] 1 tablet DAILY 1 tablet DAILY (route: oral) Med Classific ation: Cardiovas cular Therapy Agents hydrocodone 5 mg-acetamin ophen 325 mg tablet 2024-09 00:00: 00 Yes [id number] 1 tablet 2 TIMES DAILY 1 tablet 2 TIMES DAILY (route: oral) Med Classific ation: Analgesic , Anti-infl ammatory or Antipyret ic ipratropium 0.5 mg-albutero l 3 mg (2.5 mg base)/3 mL nebulizatio n soln 2024-09 00:00: 00 Yes [id number] 3 mL EVERY 4 HOURS 3 mL EVERY 4 HOURS (route: inhalation ) Med Classific ation: Respirato ry Therapy Agents levofloxaci n 750 mg tablet 2024-09 00:00: 00 07-31 23:59 :00 No [id number] 1 tablet DAILY 1 tablet DAILY (route: oral) Med Classific ation: Anti-Infe ctive Agents LIDOCAINE PAIN RELIEF 5% 2024-09 00:00: 00 Yes [id number] 1 patch NEEDED 1 patch A S NEEDED (route: TOPICALLY) Med Classific ation: ANALGESIC S mecobalamin (vitamin B12) 5,000 mcg disintegrat ing tablet 2024-09 00:00: 00 Yes [id number] 1 tablet DAILY 1 tablet DAILY (route: oral) Med Classific ation: Electroly te Balance-N utritiona l Products mirtazapine 7.5 mg tablet 2024-09 00:00: 00 Yes [id number] 1 tablet BEDTIME 1 tablet BEDTIME (route: oral) Med Classific ation: Central Nervous System Agents Mucinex 1,200 mg tablet, extended release 2024-09 00:00: 00 Yes [id number] 1 tablet 2 TIMES DAILY 1 tablet 2 TIMES DAILY (route: oral) Med Classific ation: Respirato ry Therapy Agents prednisone 20 mg tablet 2024-09 00:00: 00 07-24 23:59 :00 No [id number] 2 tablet DAILY 2 tablet DAILY (route: oral) Med Classific ation: Endocrine tamsulosin 0.4 mg capsule 2024-09 00:00: 00 Yes [id number] 1 capsule BEDTIME 1 capsule BEDTIME (route: oral) Med Classific ation: Genitouri nary Therapy trazodone 50 mg tablet 2024-09 00:00: 00 Yes [id number] 1 tablet BEDTIME 1 tablet BEDTIME (route: oral) Med Classific ation: Central Nervous System Agents Xanax 0.5 mg tablet 2024-09 00:00: 00 Yes [id number] 1 tablet EVERY 6 HOURS 1 tablet EVERY 6 HOURS (route: oral) Med Classific ation: Central Nervous System Agents Vital Signs Vital Name Observation Time Observation Value Commen ts Temperature 2025-07-29 10:19:00.000 97.6 [degF] Temperature 2025-07-28 12:07:00.000 97.6 [degF] Temperature 2025-07-22 12:25:00.000 97.3 [degF] BMI (%) 2025-07-22 12:25:00.000 15 kg/m2 Height 2025-07-22 12:25:00.000 72 [in_us] Pulse 2025-07-29 10:19:00.000 88 /min Pulse 2025-07-28 12:07:00.000 93 /min Pulse 2025-07-22 12:25:00.000 92 /min O2 Saturation (%) 2025-07-29 10:19:00.000 96 % O2 Saturation (%) 2025-07-28 12:07:00.000 97 % O2 Saturation (%) 2025-07-22 12:25:00.000 96 % Respirations 2025-07-29 10:19:00.000 19 /min Respirations 2025-07-28 12:07:00.000 18 /min Respirations 2025-07-22 12:25:00.000 16 /min Weight (lbs) 2025-07-22 12:25:00.000 117 [lb_av] Systolic Blood Pressure 2025-07-29 10:19:00.000 128 mm [Hg] Systolic Blood Pressure 2025-07-28 12:07:00.000 120 mm [Hg] Systolic Blood Pressure 2025-07-22 12:25:00.000 130 mm [Hg] Diastolic Blood Pressure 2025-07-29 10:19:00.000 65 mm [Hg] Diastolic Blood Pressure 2025-07-28 12:07:00.000 62 mm [Hg] Diastolic Blood Pressure 2025-07-22 12:25:00.000 60 mm [Hg] Plan of Treatment Planned Activity Planned Date Details Comments Future Scheduled Test SKILLED NU RSE TO EVALUATE PATIENT, IDENTIFY PRIMARY AND CO-MORBID CONDITIONS CODED PER CODING GUIDELINES INCLUDING SEPSIS, UNSPECIFIED ORGANISM, PNEUMONITIS DUE TO INHALATION OF FOOD AND VOMIT, CHR OBSTRUCTIVE PULMON DISEASE WITH (ACUTE) LOWER RESP INFCT, PANLOBULAR EMPHYSEMA, UNSPECIFIED SEVERE PROTEIN-CALORIE MALNUTRITION, ACUTE RESPIRATORY FAILURE WITH HYPERCAPNIA, AND DEVELOP PATIENT SPECIFIC PLAN OF CARE THAT INCLUDES PATIENT GOAL FOR HOME HEALTH. PLAN OF CARE TO INCLUDE 3 PRN VISIT(S) FOR OASIS DATA COLLECTION/COMPREHENSIVE ASSESSMENT AT TIMEPOINTS PER FEDERAL REGULATIONS. THIS INCLUDES VISITS FOR CARMENZA, RECERT, SCIC, AND/OR DC. [code = SKILLED NURSE TO EVALUATE PATIENT, IDENTIFY PRIMARY AND CO-MORBID CONDITIONS CODED PER CODING GUIDELINES INCLUDING SEPSIS, UNSPECIFIED ORGANISM, PNEUMONITIS DUE TO INHALATION OF FOOD AND VOMIT, CHR OBSTRUCTIVE PULMON DISEASE WITH (ACUTE) LOWER RESP INFCT, PANLOBULAR EMPHYSEMA, UNSPECIFIED SEVERE PROTEIN-CALORIE MALNUTRITION, ACUTE RESPIRATORY FAILURE WITH HYPERCAPNIA, AND DEVELOP PATIENT SPECIFIC PLAN OF CARE THAT INCLUDES PATIENT GOAL FOR HOME HEALTH. PLAN OF CARE TO INCLUDE 3 PRN VISIT(S) FOR OASIS DATA COLLECTION/COMPREHENSIVE ASSESSMENT AT TIMEPOINTS PER FEDERAL REGULATIONS. THIS INCLUDES VISITS FOR CARMENZA, RECERT, SCIC, AND/OR DC.] Future Scheduled Test [facility] MAY ACCEPT ORDERS FROM THE FOLLOWING PHYSICIANS: ALL PROVIDERS INVOLVED IN CARE [code = HOME HEALTH AGENCY MAY ACCEPT ORDERS FROM THE FOLLOWING PHYSICIANS: ALL PROVIDERS INVOLVED IN CARE] Future Scheduled Test SKILLED NU RSE FOR O/A AND TEACHING RELATED TO CANCER INCLUDING SIGNS AND SYMPTOMS OF DISEASE PROGRESSION, TREATMENT, AND MANAGEMENT OF POTENTIAL SIDE EFFECTS. [code = SKILLED NURSE FOR O/A AND TEACHING RELATED TO CANCER INCLUDING SIGNS AND SYMPTOMS OF DISEASE PROGRESSION, TREATMENT, AND MANAGEMENT OF POTENTIAL SIDE EFFECTS.] Future Scheduled Test SKILLED NU RSE TO INSTRUCT PATIENT/CAREGIVER AND PERFORM CARE AND MANAGEMENT OF INDWELLING URINARY CATHETER. INDWELLING CATHETER INSERTION WITH 16 FR CATHETER WITH 10 ML BALLOON VIA STERILE TECHNIQUE, CHANGE Q 4 WEEKS AND PRN FOR LEAKING OR MALFUNCTIONING CATHETER. IRRIGATE URINARY CATHETER WITH 30-60CC NORMAL SALINE PRN BLOCKAGE/LEAKAGE, HEAVY SEDIMENT. 1 - 3 PRN [facility] VISITS FOR CATHETER CHANGE(S) AND/OR TROUBLESHOOTING. [code = SKILLED NURSE TO INSTRUCT PATIENT/CAREGIVER AND PERFORM CARE AND MANAGEMENT OF INDWELLING URINARY CATHETER. INDWELLING CATHETER INSERTION WITH 16 FR CATHETER WITH 10 ML BALLOON VIA STERILE TECHNIQUE, CHANGE Q 4 WEEKS AND PRN FOR LEAKING OR MALFUNCTIONING CATHETER. IRRIGATE URINARY CATHETER WITH 30-60CC NORMAL SALINE PRN BLOCKAGE/LEAKAGE, HEAVY SEDIMENT. 1 - 3 PRN [facility] VISITS FOR CATHETER CHANGE(S) AND/OR TROUBLESHOOTING.] Future Scheduled Test SKILLED NU RSE FOR O/A OF RESPIRATORY SYSTEM TO IDENTIFY CHANGES ASSOCIATED WITH EXACERBATION AND TO PROVIDE SKILLED TEACHING ON MANAGEMENT OF PNUEMONIA RESPIRATORY DISEASE PROCESS. [code = SKILLED NURSE FOR O/A OF RESPIRATORY SYSTEM TO IDENTIFY CHANGES ASSOCIATED WITH EXACERBATION AND TO PROVIDE SKILLED TEACHING ON MANAGEMENT OF PNUEMONIA RESPIRATORY DISEASE PROCESS.] Future Scheduled Test SKILLED NU RSE FOR O/A AND SKILLED TEACHING RELATED TO SIGNS AND SYMPTOMS OF INFECTION AND INFECTION CONTROL MEASURES. [code = SKILLED NURSE FOR O/A AND SKILLED TEACHING RELATED TO SIGNS AND SYMPTOMS OF INFECTION AND INFECTION CONTROL MEASURES.] Future Scheduled Test SKILLED NU RSE TO PROVIDE TEACHING ON SIGNS AND SYMPTOMS AND MANAGEMENT OF HYPERTENSION. [code = SKILLED NURSE TO PROVIDE TEACHING ON SIGNS AND SYMPTOMS AND MANAGEMENT OF HYPERTENSION.] Future Scheduled Test SKILLED NU RSE TO INSTRUCT PATIENT/CAREGIVER ON PREVENTION OF SEPSIS, AND SIGNS AND SYMPTOMS OF SEPSIS TO REPORT. [code = SKILLED NURSE TO INSTRUCT PATIENT/CAREGIVER ON PREVENTION OF SEPSIS, AND SIGNS AND SYMPTOMS OF SEPSIS TO REPORT.] Future Scheduled Test VIRTUAL SIT FREQUENCY: 12 PRN VIRTUAL VISITS MAY BE PERFORMED UTILIZING TELECOMMUNICATIONS SYSTEM TO OPTIMIZE SKILLED SERVICES FURNISHED ON THE PLAN OF CARE. SKILLED NURSE TO ESTABLISH SUPPORT MEASURES TO MINIMIZE RISK OF REHOSPITALIZATION, AND INSTRUCT PATIENT/CAREGIVER ON METHODS TO REDUCE AVOIDABLE HOSPITALIZATION. [code = VIRTUAL VISIT FREQUENCY: 12 PRN VIRTUAL VISITS MAY BE PERFORMED UTILIZING TELECOMMUNICATIONS SYSTEM TO OPTIMIZE SKILLED SERVICES FURNISHED ON THE PLAN OF CARE. SKILLED NURSE TO ESTABLISH SUPPORT MEASURES TO MINIMIZE RISK OF REHOSPITALIZATION, AND INSTRUCT PATIENT/CAREGIVER ON METHODS TO REDUCE AVOIDABLE HOSPITALIZATION.] Future Scheduled Test PATIENT JACKSON S A RISK OF HOSPITALIZATION AND ED USE. SKILLED NURSE TO ESTABLISH SUPPORT MEASURES TO MINIMIZE RISK OF HOSPITALIZATION AND ED USE, AND INSTRUCT PATIENT/CAREGIVER ON METHODS TO REDUCE AVOIDABLE HOSPITALIZATION AND ED USE. [code = PATIENT HAS A RISK OF HOSPITALIZATION AND ED USE. SKILLED NURSE TO ESTABLISH SUPPORT MEASURES TO MINIMIZE RISK OF HOSPITALIZATION AND ED USE, AND INSTRUCT PATIENT/CAREGIVER ON METHODS TO REDUCE AVOIDABLE HOSPITALIZATION AND ED USE.] Future Scheduled Test SKILLED NU RSE TO PROVIDE INSTRUCTION TO PATIENT/CAREGIVER RELATED TO DISCHARGE PLANNING. [code = SKILLED NURSE TO PROVIDE INSTRUCTION TO PATIENT/CAREGIVER RELATED TO DISCHARGE PLANNING.] Future Scheduled Test SKILLED NU RSE TO PERFORM ENVIRONMENTAL SAFETY RISK ASSESSMENT AND FALL RISK ASSESSMENT AND PROVIDE INSTRUCTION TO IMPLEMENT ENVIRONMENTAL SAFETY AND FALL PREVENTION STRATEGIES THROUGHOUT THE CERTIFICATION PERIOD. SKILLED NURSE WILL MAINTAIN SITUATIONAL AWARENESS AND WILL NOTIFY CLINICAL ETHOLOGIST AND PHYSICIAN/PROVIDER WITH ANY CHANGE IN CONDITION. [code = SKILLED NURSE TO PERFORM ENVIRONMENTAL SAFETY RISK ASSESSMENT AND FALL RISK ASSESSMENT AND PROVIDE INSTRUCTION TO IMPLEMENT ENVIRONMENTAL SAFETY AND FALL PREVENTION STRATEGIES THROUGHOUT THE CERTIFICATION PERIOD. SKILLED NURSE WILL MAINTAIN SITUATIONAL AWARENESS AND WILL NOTIFY CLINICAL ETHOLOGIST AND PHYSICIAN/PROVIDER WITH ANY CHANGE IN CONDITION.] Future Scheduled Test SKILLED NU RSE FOR OBSERVATION AND ASSESSMENT OF PATIENT S PAIN LEVEL AND EFFECTIVENESS OF PAIN MANAGEMENT REGIMEN. SKILLED NURSE TO INSTRUCT PATIENT/CAREGIVER REGARDING PHARMACOLOGIC AND NON-PHARMACOLOGIC PAIN CONTROL MEASURES. SKILLED NURSE TO REPORT TO PHYSICIAN IF PAIN LEVEL IS OUTSIDE OF ESTABLISHED PARAMETERS. [code = SKILLED NURSE FOR OBSERVATION AND ASSESSMENT OF PATIENT S PAIN LEVEL AND EFFECTIVENESS OF PAIN MANAGEMENT REGIMEN. SKILLED NURSE TO INSTRUCT PATIENT/CAREGIVER REGARDING PHARMACOLOGIC AND NON-PHARMACOLOGIC PAIN CONTROL MEASURES. SKILLED NURSE TO REPORT TO PHYSICIAN IF PAIN LEVEL IS OUTSIDE OF ESTABLISHED PARAMETERS.] Future Scheduled Test SKILLED NU RSE TO ASSESS PATIENT'S SKIN INTEGRITY AND INSTRUCT PATIENT/CAREGIVER ON MEASURES TO PREVENT PRESSURE ULCERS. [code = SKILLED NURSE TO ASSESS PATIENT'S SKIN INTEGRITY AND INSTRUCT PATIENT/CAREGIVER ON MEASURES TO PREVENT PRESSURE ULCERS.] Future Scheduled Test SKILLED NU RSE TO REVIEW PATIENT MEDICATIONS (PRESCRIPTION/OTC). INSTRUCT PATIENT/CAREGIVER ON ALL MEDICATIONS INCLUDING PURPOSE, WHEN TO TAKE, IMPORTANCE OF MEDICATION ADHERENCE, MONITORING OF EFFECTIVENESS, ADVERSE DRUG REACTIONS, POSSIBLE SIDE EFFECTS, AND WHEN TO NOTIFY AGENCY OR PHYSICIAN/PROVIDER OF ANY CONCERNS. [code = SKILLED NURSE TO REVIEW PATIENT MEDICATIONS (PRESCRIPTION/OTC). INSTRUCT PATIENT/CAREGIVER ON ALL MEDICATIONS INCLUDING PURPOSE, WHEN TO TAKE, IMPORTANCE OF MEDICATION ADHERENCE, MONITORING OF EFFECTIVENESS, ADVERSE DRUG REACTIONS, POSSIBLE SIDE EFFECTS, AND WHEN TO NOTIFY AGENCY OR PHYSICIAN/PROVIDER OF ANY CONCERNS.] Goal Patient Goal - GET STRONGER Goal Provider Goal - A PLAN OF CARE WILL BE ESTABLISHED THAT MEETS PATIENT'S [facility] NEEDS AND INCLUDES PATIENT GOAL FOR HOME HEALTH. Goal Provider Goal - ADDITIONAL ORDERS WILL BE RECEIVED FROM ALTERNATE PHYSICIAN IN A TIMELY MANNER THROUGHOUT THE CERTIFICATION PERIOD. Goal Provider Goal - PATIENT/CAREGIVER WILL VERBALIZE/DEMONSTRATE MANAGEMENT OF CANCER AND THE SIDE EFFECTS OF TREATMENTS DURING THIS EPISODE. Goal Provider Goal - PATIENT WILL VERBALIZE TOLERANCE OF CATHETER CHANGE AND KNOWLEDGE OF REQUIRED CARE TO MANAGE INDWELLING URINARY CATHETER WITHOUT COMPLICATIONS BY THE END OF THE CERTIFICATION PERIOD. Goal Provider Goal - PATIENT/CAREGIVER WILL VERBALIZE/DEMONSTRATE MANAGEMENT OF PNUEMONIA RESPIRATORY DISEASE PROCESS. CHANGES IN RESPIRATORY STATUS WILL BE IDENTIFIED AND REPORTED TO PHYSICIAN FOR PROMPT INTERVENTION THROUGHOUT THE CERTIFICATION PERIOD. Goal Provider Goal - PATIENT/CAREGIVER WILL VERBALIZE/DEMONSTRATE UNDERSTANDING OF S/S OF INFECTION AND INFECTION CONTROL MEASURES. SIGNS AND SYMPTOMS OF INFECTION WILL BE IDENTIFIED AND PHYSICIAN NOTIFIED FOR PROMPT INTERVENTION THROUGHOUT THE CERTIFICATION PERIOD. Goal Provider Goal - PATIENT/CAREGIVER WILL VERBALIZE SIGNS AND SYMPTOMS OF HYPERTENSION AND WILL BE ABLE TO DEMONSTRATE ABILITY TO MANAGE EXACERBATION BY END OF THE EPISODE. Goal Provider Goal - PATIENT WILL BE FREE FROM INFECTION AND PATIENT/CAREGIVER WILL VERBALIZE UNDERSTANDING OF SIGNS AND SYMPTOMS AND METHODS TO PREVENT SEPSIS BY END OF THE EPISODE. Goal Provider Goal - PATIENT/CAREGIVER WILL UTILIZE VIRTUAL VISITS TO ACHIEVE GOALS OUTLINED ON THE PLAN OF CARE. PATIENT WILL HAVE SUPPORT MEASURES ESTABLISHED TO PREVENT HOSPITALIZATION AND PATIENT/CAREGIVER WILL VERBALIZE/DEMONSTRATE METHODS TO REDUCE AVOIDABLE HOSPITALIZATION THROUGHOUT THE CERTIFICATION PERIOD. Goal Provider Goal - PATIENT WILL HAVE SUPPORT MEASURES ESTABLISHED TO PREVENT HOSPITALIZATION AND ED USE AND PATIENT/CAREGIVER WILL VERBALIZE/DEMONSTRATE METHODS TO REDUCE AVOIDABLE HOSPITALIZATION AND ED USE BY END OF EPISODE. Goal Provider Goal - PATIENT/CAREGIVER WILL VERBALIZE UNDERSTANDING OF DISCHARGE PLANNING INSTRUCTIONS BY DATE OF DISCHARGE. Goal Provider Goal - PATIENT/CAREGIVER WILL VERBALIZE/DEMONSTRATE EFFECTIVE ENVIRONMENTAL SAFETY AND FALL PREVENTION STRATEGIES, WILL REMAIN SAFE IN THE COMMUNITY, AND WILL BE FREE OF DANGER TO SELF AND OTHERS THROUGHOUT THE CERTIFICATION PERIOD. Goal Provider Goal - PATIENT/CAREGIVER WILL DEMONSTRATE UNDERSTANDING OF PHARMACOLOGIC AND NONPHARMACOLOGIC PAIN CONTROL MEASURES AND PATIENT WILL HAVE IMPROVEMENT IN PAIN INTERFERING WITH ACTIVITY EVIDENCED BY PAIN AT A LEVEL THAT IS ACCEPTABLE TO THE PATIENT AND PAIN LEVEL WITHIN ESTABLISHED PARAMETERS BY END OF CERTIFICATION PERIOD. Goal Provider Goal - PATIENT/CAREGIVER WILL VERBALIZE UNDERSTANDING OF PRESSURE ULCER PREVENTION BY END OF THE EPISODE. Goal Provider Goal - PATIENT/CAREGIVER WILL VERBALIZE UNDERSTANDING OF EDUCATION PROVIDED ON MEDICATIONS BY THE END OF THE CERTIFICATION PERIOD. Encounters Start Date/Time End Date/Time Encounter Type Admission Type Attending [facility] Care Department Encounter ID Discharge Date Discharge Status Discharge Condition Discharge Reason Percent Goals Met 2025-07-22 00:00:00 2025-09-19 00:00:00 Outpatient [facility] [id number] 22.58
--- OUTSIDE RECORDS SUMMARY | 2025-09-18 18:00 | XMS_ITS | Clinical Summary ---
Author Organization Unknown Care Team Providers Care Planner Intern Name Role Phone MICHELLE GARRISON, CARMEN Unavailable Unavailable WINDY RAUSCH, MELISSA Unavailable Unavailable Payers Payer Name Policy Type Policy Number Effective Date Expira tion Date [facility] [employer] PRO[employer] - PDGM Problems Condition Name [...] 09-23 00:00: 00 ATHSCL HEART DISEASE OF [place] CORONARY ARTERY W/O ANG PCTRS Active 09-23 [...] OF NICOTINE DEPENDENCE Active 09-23 00:00: 00 [facility] (CURRENT) USE OF ANTITHROMBOT ICS/ANTIPLAT ELETS Active 09-23 00:00: 00 SNF (CURRENT) USE OF OPIATE ANALGESIC Active 09-23 [...] 06-03 00:00: 00 07-20 23:59 :00 No [id number] 1 tablet EVERY 6 HOURS 1 tablet EVERY 6 HOURS (route: oral) Med Classific ation: Central Nervous System Agents atorvastati n 80 mg tablet 06-03 00:00: 00 07-20 23:59 :00 No [id number] 1 tablet DAILY 1 tablet DAILY (route: oral) Med Classific ation: Cardiovas cular Therapy Agents B-Complex tablet 06-03 00:00: 00 07-20 23:59 :00 No [id number] 1 tablet DAILY 1 tablet DAILY (route: oral) Med Classific ation: Electroly te Balance-N utritiona l Products benzonatate 200 mg capsule 06-03 00:00: 00 07-20 23:59 :00 No [id number] 1 capsule 3 TIMES DAILY 1 capsule 3 TIMES DAILY (route: oral) Med Classific ation: Respirato ry Therapy Agents clopidogrel 75 mg tablet 06-03 00:00: 00 07-20 23:59 :00 No [id number] 1 tablet DAILY 1 tablet DAILY (route: oral) Med Classific ation: Hematolog ical Agents ferrous gluconate 324 mg (37.5 mg iron) tablet 06-03 00:00: 00 07-20 23:59 :00 No [id number] 1 tablet DAILY 1 tablet DAILY (route: oral) Med Classific ation: Electroly te Balance-N utritiona l Products folic acid 1 mg tablet 06-03 00:00: 00 07-20 23:59 :00 No [id number] 1 tablet DAILY 1 tablet DAILY (route: oral) Med Classific ation: Electroly te Balance-N utritiona l Products furosemide 40 mg tablet 06-03 00:00: 00 07-20 23:59 :00 No [id number] 1 tablet DAILY 1 tablet DAILY (route: oral) Med Classific ation: Cardiovas cular Therapy Agents hydrocodone 5 mg-acetamin ophen 325 mg tablet 06-03 00:00: 00 07-20 23:59 :00 No [id number] 1 tablet EVERY 4 HOURS 1 tablet EVERY 4 HOURS (route: oral) Med Classific ation: Analgesic , Anti-infl ammatory or Antipyret ic ipratropium 0.5 mg-albutero l 3 mg (2.5 mg base)/3 mL nebulizatio n soln 06-03 00:00: 00 07-20 23:59 :00 No [id number] 1 mL EVERY 6 HOURS 1 mL EVERY 6 HOURS (route: inhalation ) Med Classific ation: Respirato ry Therapy Agents Lidoderm 5 % topical patch 06-03 00:00: 00 07-20 23:59 :00 No [id number] 1 adhesiv e patch, medicat ed DIRECTED 1 adhesive patch, medicated DIRECTED (route: topical) Med Classific ation: Dermatolo gical Mucinex 600 mg tablet, extended release 06-03 00:00: 00 07-20 23:59 :00 No [id number] 2 tablet 2 TIMES DAILY 2 tablet 2 TIMES DAILY (route: oral) Med Classific ation: Respirato ry Therapy Agents naloxone 4 mg/actuatio n nasal spray 06-03 00:00: 00 07-20 23:59 :00 No [id number] Per instruc tions NEEDED Per instructio ns NEEDED (route: nasal) Med Classific ation: Antidotes and other Reversal Agents ondansetron HCl 8 mg tablet 06-03 00:00: 00 07-20 23:59 :00 No [id number] 1 tablet EVERY 6 HOURS 1 tablet EVERY 6 HOURS (route: oral) Med Classific ation: Gastroint estinal Therapy Agents tamsulosin 0.4 mg capsule 06-03 00:00: 00 07-20 23:59 :00 No [id number] 2 capsule DAILY 2 capsule DAILY (route: oral) Med Classific ation: Genitouri nary Therapy Thera-M 9 mg iron-400 mcg tablet 06-03 00:00: 00 07-20 23:59 :00 No [id number] 1 tablet DAILY 1 tablet DAILY (route: oral) Med Classific ation: Electroly te Balance-N utritiona l Products thiamine HCl (vitamin B1) 100 mg tablet 06-03 00:00: 00 07-20 23:59 :00 No [id number] 1 tablet DAILY 1 tablet DAILY (route: oral) Med Classific ation: Electroly te Balance-N utritiona l Products Trelegy Ellipta 100 mcg-62.5 mcg-25 mcg powder for inhalation 06-03 00:00: 00 07-20 23:59 :00 No [id number] 1 inhalat ion DAILY 1 inhalation DAILY (route: inhalation ) Med Classific ation: Respirato ry Therapy Agents Vitamin D3 25 mcg (1,000 unit) tablet 06-03 00:00: 00 07-20 23:59 :00 No [id number] 1 tablet DAILY 1 tablet DAILY (route: oral) Med Classific ation: Electroly te Balance-N utritiona l Products oxygen gas for inhalation 06-07 00:00: 00 07-20 23:59 :00 No [id number] 2 Liter O2 - CONTINUOUS 2 Liter O2 - CONTINUOUS (route: inhalation ) Med Classific ation: Medical Supplies and Durable Medical Equipment (DME) aluminum-ma g hydroxide-s imethicone 200 mg-200 mg-20 mg/5 mL oral susp 2024-09 00:00: 00 Yes [id number] 15 mL EVERY 6 HOURS 15 mL EVERY 6 HOURS (route: oral) Med Classific ation: Gastroint estinal Therapy Agents atorvastati n 20 mg tablet 2024-09 00:00: 00 Yes [id number] 1 tablet BEDTIME 1 tablet BEDTIME (route: oral) Med Classific ation: Cardiovas cular Therapy Agents clopidogrel 75 mg tablet 2024-09 00:00: 00 Yes [id number] 1 tablet DAILY 1 tablet DAILY (route: oral) Med Classific ation: Hematolog ical Agents furosemide 40 mg tablet 2024-09 00:00: 00 Yes [id number] 1 tablet DAILY 1 tablet DAILY (route: oral) Med Classific ation: Cardiovas cular Therapy Agents hydrocodone 5 mg-acetamin ophen 325 mg tablet 2024-09 00:00: 00 Yes [id number] 1 tablet 2 TIMES DAILY 1 tablet 2 TIMES DAILY (route: oral) Med Classific ation: Analgesic , Anti-infl ammatory or Antipyret ic ipratropium 0.5 mg-albutero l 3 mg (2.5 mg base)/3 mL nebulizatio n soln 2024-09 00:00: 00 Yes [id number] 3 mL EVERY 4 HOURS 3 mL EVERY 4 HOURS (route: inhalation ) Med Classific ation: Respirato ry Therapy Agents levofloxaci n 750 mg tablet 2024-09 00:00: 00 07-31 23:59 :00 No [id number] 1 tablet DAILY 1 tablet DAILY (route: oral) Med Classific ation: Anti-Infe ctive Agents LIDOCAINE PAIN RELIEF 5% 2024-09 00:00: 00 Yes [id number] 1 patch NEEDED 1 patch A S NEEDED (route: TOPICALLY) Med Classific ation: ANALGESIC S mecobalamin (vitamin B12) 5,000 mcg disintegrat ing tablet 2024-09 00:00: 00 Yes [id number] 1 tablet DAILY 1 tablet DAILY (route: oral) Med Classific ation: Electroly te Balance-N utritiona l Products mirtazapine 7.5 mg tablet 2024-09 00:00: 00 Yes [id number] 1 tablet BEDTIME 1 tablet BEDTIME (route: oral) Med Classific ation: Central Nervous System Agents Mucinex 1,200 mg tablet, extended release 2024-09 00:00: 00 Yes [id number] 1 tablet 2 TIMES DAILY 1 tablet 2 TIMES DAILY (route: oral) Med Classific ation: Respirato ry Therapy Agents prednisone 20 mg tablet 2024-09 00:00: 00 07-24 23:59 :00 No [id number] 2 tablet DAILY 2 tablet DAILY (route: oral) Med Classific ation: Endocrine tamsulosin 0.4 mg capsule 2024-09 00:00: 00 Yes [id number] 1 capsule BEDTIME 1 capsule BEDTIME (route: oral) Med Classific ation: Genitouri nary Therapy trazodone 50 mg tablet 2024-09 00:00: 00 Yes [id number] 1 tablet BEDTIME 1 tablet BEDTIME (route: oral) Med Classific ation: Central Nervous System Agents Xanax 0.5 mg tablet 2024-09 00:00: 00 Yes [id number] 1 tablet EVERY 6 HOURS 1 tablet [...] DC.] Future Scheduled Test HOME [facility] MAY ACCEPT ORDERS FROM THE FOLLOWING [...] BLOCKAGE/LEAKAGE, HEAVY SEDIMENT. 1 - 3 PRN [facility] VISITS FOR CATHETER CHANGE(S) AND/OR TROUBLESHOOTING. [code = SKILLED NURSE TO INSTRUCT PATIENT/CAREGIVER AND PERFORM CARE AND MANAGEMENT OF INDWELLING URINARY CATHETER. INDWELLING CATHETER INSERTION WITH 16 FR CATHETER WITH 10 ML BALLOON VIA STERILE TECHNIQUE, CHANGE Q 4 WEEKS AND PRN FOR LEAKING OR MALFUNCTIONING CATHETER. IRRIGATE URINARY CATHETER WITH 30-60CC NORMAL SALINE PRN BLOCKAGE/LEAKAGE, HEAVY SEDIMENT. 1 - 3 PRN [facility] VISITS FOR CATHETER CHANGE(S) AND/OR TROUBLESHOOTING.] Future [...] MAINTAIN SITUATIONAL AWARENESS AND WILL NOTIFY CLINICAL HOSPITAL INTERN AND PHYSICIAN/PROVIDER WITH ANY CHANGE IN CONDITION. [code = SKILLED NURSE TO PERFORM ENVIRONMENTAL SAFETY RISK ASSESSMENT AND FALL RISK ASSESSMENT AND PROVIDE INSTRUCTION TO IMPLEMENT ENVIRONMENTAL SAFETY AND FALL PREVENTION STRATEGIES THROUGHOUT THE CERTIFICATION PERIOD. SKILLED NURSE WILL MAINTAIN SITUATIONAL AWARENESS AND WILL NOTIFY CLINICAL HOSPITAL INTERN AND PHYSICIAN/PROVIDER WITH ANY CHANGE IN CONDITION.] [...] CARE WILL BE ESTABLISHED THAT MEETS PATIENT'S [facility] NEEDS AND INCLUDES PATIENT GOAL FOR HOME [...] End Date/Time Encounter Type Admission Type Attending [facility] Care Department Encounter ID Discharge Date Discharge Status Discharge Condition Discharge Reason Percent Goals Met 2025-07-22 00:00:00 2025-09-19 00:00:00 Outpatient READMISSIO N [facility] [id number] 22.58
--- OUTSIDE RECORDS SUMMARY | 2025-09-18 18:00 | XMS_ITS | Clinical Summary ---
Author Organization Unknown Care Team Providers Care Warehouse Person Name Role Phone MICHELLE GARRISON, CARMEN Unavailable Unavailable WINDY RAUSCH, MELISSA Unavailable Unavailable Payers Payer Name Policy Type Policy Number Effective Date Expira tion Date [facility] OPTUM PROGRAM - PDGM Problems Condition Name [...] 09-23 00:00: 00 ATHSCL HEART DISEASE OF [place] CORONARY ARTERY W/O ANG PCTRS Active 09-23 [...] OF NICOTINE DEPENDENCE Active 09-23 00:00: 00 [facility] (CURRENT) USE OF ANTITHROMBOT ICS/ANTIPLAT ELETS Active 09-23 00:00: 00 [facility] (CURRENT) USE OF OPIATE ANALGESIC Active 09-23 [...] 06-03 00:00: 00 07-20 23:59 :00 No [id number] 1 tablet EVERY 6 HOURS 1 tablet EVERY 6 HOURS (route: oral) Med Classific ation: Central Nervous System Agents atorvastati n 80 mg tablet 06-03 00:00: 00 07-20 23:59 :00 No [id number] 1 tablet DAILY 1 tablet DAILY (route: oral) Med Classific ation: Cardiovas cular Therapy Agents B-Complex tablet 06-03 00:00: 00 07-20 23:59 :00 No [id number] 1 tablet DAILY 1 tablet DAILY (route: oral) Med Classific ation: Electroly te Balance-N utritiona l Products benzonatate 200 mg capsule 06-03 00:00: 00 07-20 23:59 :00 No [id number] 1 capsule 3 TIMES DAILY 1 capsule 3 TIMES DAILY (route: oral) Med Classific ation: Respirato ry Therapy Agents clopidogrel 75 mg tablet 06-03 00:00: 00 07-20 23:59 :00 No [id number] 1 tablet DAILY 1 tablet DAILY (route: oral) Med Classific ation: Hematolog ical Agents ferrous gluconate 324 mg (37.5 mg iron) tablet 06-03 00:00: 00 07-20 23:59 :00 No [id number] 1 tablet DAILY 1 tablet DAILY (route: oral) Med Classific ation: Electroly te Balance-N utritiona l Products folic acid 1 mg tablet 06-03 00:00: 00 07-20 23:59 :00 No [id number] 1 tablet DAILY 1 tablet DAILY (route: oral) Med Classific ation: Electroly te Balance-N utritiona l Products furosemide 40 mg tablet 06-03 00:00: 00 07-20 23:59 :00 No [id number] 1 tablet DAILY 1 tablet DAILY (route: oral) Med Classific ation: Cardiovas cular Therapy Agents hydrocodone 5 mg-acetamin ophen 325 mg tablet 06-03 00:00: 00 07-20 23:59 :00 No [id number] 1 tablet EVERY 4 HOURS 1 tablet EVERY 4 HOURS (route: oral) Med Classific ation: Analgesic , Anti-infl ammatory or Antipyret ic ipratropium 0.5 mg-albutero l 3 mg (2.5 mg base)/3 mL nebulizatio n soln 06-03 00:00: 00 07-20 23:59 :00 No [id number] 1 mL EVERY 6 HOURS 1 mL EVERY 6 HOURS (route: inhalation ) Med Classific ation: Respirato ry Therapy Agents Lidoderm 5 % topical patch 06-03 00:00: 00 07-20 23:59 :00 No [id number] 1 adhesiv e patch, medicat ed DIRECTED 1 adhesive patch, medicated DIRECTED (route: topical) Med Classific ation: Dermatolo gical Mucinex 600 mg tablet, extended release 06-03 00:00: 00 07-20 23:59 :00 No [id number] 2 tablet 2 TIMES DAILY 2 tablet 2 TIMES DAILY (route: oral) Med Classific ation: Respirato ry Therapy Agents naloxone 4 mg/actuatio n nasal spray 06-03 00:00: 00 07-20 23:59 :00 No [id number] Per instruc tions NEEDED Per instructio ns NEEDED (route: nasal) Med Classific ation: Antidotes and other Reversal Agents ondansetron HCl 8 mg tablet 06-03 00:00: 00 07-20 23:59 :00 No [id number] 1 tablet EVERY 6 HOURS 1 tablet EVERY 6 HOURS (route: oral) Med Classific ation: Gastroint estinal Therapy Agents tamsulosin 0.4 mg capsule 06-03 00:00: 00 07-20 23:59 :00 No [id number] 2 capsule DAILY 2 capsule DAILY (route: oral) Med Classific ation: Genitouri nary Therapy Thera-M 9 mg iron-400 mcg tablet 06-03 00:00: 00 07-20 23:59 :00 No [id number] 1 tablet DAILY 1 tablet DAILY (route: oral) Med Classific ation: Electroly te Balance-N utritiona l Products thiamine HCl (vitamin B1) 100 mg tablet 06-03 00:00: 00 07-20 23:59 :00 No [id number] 1 tablet DAILY 1 tablet DAILY (route: oral) Med Classific ation: Electroly te Balance-N utritiona l Products Trelegy Ellipta 100 mcg-62.5 mcg-25 mcg powder for inhalation 06-03 00:00: 00 07-20 23:59 :00 No [id number] 1 inhalat ion DAILY 1 inhalation DAILY (route: inhalation ) Med Classific ation: Respirato ry Therapy Agents Vitamin D3 25 mcg (1,000 unit) tablet 06-03 00:00: 00 07-20 23:59 :00 No [id number] 1 tablet DAILY 1 tablet DAILY (route: oral) Med Classific ation: Electroly te Balance-N utritiona l Products oxygen gas for inhalation 06-07 00:00: 00 07-20 23:59 :00 No [id number] 2 Liter O2 - CONTINUOUS 2 Liter O2 - CONTINUOUS (route: inhalation ) Med Classific ation: Medical Supplies and Durable Medical Equipment (DME) aluminum-ma g hydroxide-s imethicone 200 mg-200 mg-20 mg/5 mL oral susp 2024-09 00:00: 00 Yes [id number] 15 mL EVERY 6 HOURS 15 mL EVERY 6 HOURS (route: oral) Med Classific ation: Gastroint estinal Therapy Agents atorvastati n 20 mg tablet 2024-09 00:00: 00 Yes [id number] 1 tablet BEDTIME 1 tablet BEDTIME (route: oral) Med Classific ation: Cardiovas cular Therapy Agents clopidogrel 75 mg tablet 2024-09 00:00: 00 Yes [id number] 1 tablet DAILY 1 tablet DAILY (route: oral) Med Classific ation: Hematolog ical Agents furosemide 40 mg tablet 2024-09 00:00: 00 Yes [id number] 1 tablet DAILY 1 tablet DAILY (route: oral) Med Classific ation: Cardiovas cular Therapy Agents hydrocodone 5 mg-acetamin ophen 325 mg tablet 2024-09 00:00: 00 Yes [id number] 1 tablet 2 TIMES DAILY 1 tablet 2 TIMES DAILY (route: oral) Med Classific ation: Analgesic , Anti-infl ammatory or Antipyret ic ipratropium 0.5 mg-albutero l 3 mg (2.5 mg base)/3 mL nebulizatio n soln 2024-09 00:00: 00 Yes [id number] 3 mL EVERY 4 HOURS 3 mL EVERY 4 HOURS (route: inhalation ) Med Classific ation: Respirato ry Therapy Agents levofloxaci n 750 mg tablet 2024-09 00:00: 00 07-31 23:59 :00 No [id number] 1 tablet DAILY 1 tablet DAILY (route: oral) Med Classific ation: Anti-Infe ctive Agents LIDOCAINE PAIN RELIEF 5% 2024-09 00:00: 00 Yes [id number] 1 patch NEEDED 1 patch A S NEEDED (route: TOPICALLY) Med Classific ation: ANALGESIC S mecobalamin (vitamin B12) 5,000 mcg disintegrat ing tablet 2024-09 00:00: 00 Yes [id number] 1 tablet DAILY 1 tablet DAILY (route: oral) Med Classific ation: Electroly te Balance-N utritiona l Products mirtazapine 7.5 mg tablet 2024-09 00:00: 00 Yes [id number] 1 tablet BEDTIME 1 tablet BEDTIME (route: oral) Med Classific ation: Central Nervous System Agents Mucinex 1,200 mg tablet, extended release 2024-09 00:00: 00 Yes [id number] 1 tablet 2 TIMES DAILY 1 tablet 2 TIMES DAILY (route: oral) Med Classific ation: Respirato ry Therapy Agents prednisone 20 mg tablet 2024-09 00:00: 00 07-24 23:59 :00 No [id number] 2 tablet DAILY 2 tablet DAILY (route: oral) Med Classific ation: Endocrine tamsulosin 0.4 mg capsule 2024-09 00:00: 00 Yes [id number] 1 capsule BEDTIME 1 capsule BEDTIME (route: oral) Med Classific ation: Genitouri nary Therapy trazodone 50 mg tablet 2024-09 00:00: 00 Yes [id number] 1 tablet BEDTIME 1 tablet BEDTIME (route: oral) Med Classific ation: Central Nervous System Agents Xanax 0.5 mg tablet 2024-09 00:00: 00 Yes [id number] 1 tablet EVERY 6 HOURS 1 tablet [...] [facility], AND/OR DC.] Future Scheduled Test HOME [facility] MAY ACCEPT ORDERS FROM THE FOLLOWING [...] BLOCKAGE/LEAKAGE, HEAVY SEDIMENT. 1 - 3 PRN [facility]ISON VISITS FOR CATHETER CHANGE(S) AND/OR TROUBLESHOOTING. [code = SKILLED NURSE TO INSTRUCT PATIENT/CAREGIVER AND PERFORM CARE AND MANAGEMENT OF INDWELLING URINARY CATHETER. INDWELLING CATHETER INSERTION WITH 16 FR CATHETER WITH 10 ML BALLOON VIA STERILE TECHNIQUE, CHANGE Q 4 WEEKS AND PRN FOR LEAKING OR MALFUNCTIONING CATHETER. IRRIGATE URINARY CATHETER WITH 30-60CC NORMAL SALINE PRN BLOCKAGE/LEAKAGE, HEAVY SEDIMENT. 1 - 3 PRN PRISON VISITS FOR CATHETER CHANGE(S) AND/OR TROUBLESHOOTING.] Future [...] MAINTAIN SITUATIONAL AWARENESS AND WILL NOTIFY CLINICAL SHEARING SHED HAND AND PHYSICIAN/PROVIDER WITH ANY CHANGE IN CONDITION. [code = SKILLED NURSE TO PERFORM ENVIRONMENTAL SAFETY RISK ASSESSMENT AND FALL RISK ASSESSMENT AND PROVIDE INSTRUCTION TO IMPLEMENT ENVIRONMENTAL SAFETY AND FALL PREVENTION STRATEGIES THROUGHOUT THE CERTIFICATION PERIOD. SKILLED NURSE WILL MAINTAIN SITUATIONAL AWARENESS AND WILL NOTIFY CLINICAL SHEARING SHED HAND AND PHYSICIAN/PROVIDER WITH ANY CHANGE IN CONDITION.] [...] CARE WILL BE ESTABLISHED THAT MEETS PATIENT'S PRISON NEEDS AND INCLUDES PATIENT GOAL FOR HOME [...] End Date/Time Encounter Type Admission Type Attending [facility] Care Department Encounter ID Discharge Date Discharge Status Discharge Condition Discharge Reason Percent Goals Met 2025-07-22 00:00:00 2025-09-19 00:00:00 Outpatient READMISSIO N [facility] [id number] 22.58
--- OUTSIDE RECORDS SUMMARY | 2025-09-18 18:00 | XMS_ITS | Clinical Summary ---
Author Organization Unknown Care Team Providers Care Forest Ec[employer] Professor Name Role Phone MICHELLE GARRISON, CARMEN Unavailable Unavailable WINDY RAUSCH, MELISSA Unavailable Unavailable Payers Payer Name Policy Type Policy Number Effective Date Expira tion Date [facility] OPTUM PROGRAM - PDGM Problems Condition [...] 09-23 00:00: 00 ATHSCL HEART DISEASE OF [place] CORONARY ARTERY W/O ANG PCTRS Active 09-23 [...] OF NICOTINE DEPENDENCE Active 09-23 00:00: 00 ASSISTED (CURRENT) USE OF ANTITHROMBOT ICS/ANTIPLAT ELETS Active 09-23 00:00: 00 ASSISTED (CURRENT) USE OF OPIATE ANALGESIC Active 09-23 [...] 06-03 00:00: 00 07-20 23:59 :00 No [id number] 1 tablet EVERY 6 HOURS 1 tablet EVERY 6 HOURS (route: oral) Med Classific ation: Central Nervous System Agents atorvastati n 80 mg tablet 06-03 00:00: 00 07-20 23:59 :00 No [id number] 1 tablet DAILY 1 tablet DAILY (route: oral) Med Classific ation: Cardiovas cular Therapy Agents B-Complex tablet 06-03 00:00: 00 07-20 23:59 :00 No [id number] 1 tablet DAILY 1 tablet DAILY (route: oral) Med Classific ation: Electroly te Balance-N utritiona l Products benzonatate 200 mg capsule 06-03 00:00: 00 07-20 23:59 :00 No [id number] 1 capsule 3 TIMES DAILY 1 capsule 3 TIMES DAILY (route: oral) Med Classific ation: Respirato ry Therapy Agents clopidogrel 75 mg tablet 06-03 00:00: 00 07-20 23:59 :00 No [id number] 1 tablet DAILY 1 tablet DAILY (route: oral) Med Classific ation: Hematolog ical Agents ferrous gluconate 324 mg (37.5 mg iron) tablet 06-03 00:00: 00 07-20 23:59 :00 No [id number] 1 tablet DAILY 1 tablet DAILY (route: oral) Med Classific ation: Electroly te Balance-N utritiona l Products folic acid 1 mg tablet 06-03 00:00: 00 07-20 23:59 :00 No [id number] 1 tablet DAILY 1 tablet DAILY (route: oral) Med Classific ation: Electroly te Balance-N utritiona l Products furosemide 40 mg tablet 06-03 00:00: 00 07-20 23:59 :00 No [id number] 1 tablet DAILY 1 tablet DAILY (route: oral) Med Classific ation: Cardiovas cular Therapy Agents hydrocodone 5 mg-acetamin ophen 325 mg tablet 06-03 00:00: 00 07-20 23:59 :00 No [id number] 1 tablet EVERY 4 HOURS 1 tablet EVERY 4 HOURS (route: oral) Med Classific ation: Analgesic , Anti-infl ammatory or Antipyret ic ipratropium 0.5 mg-albutero l 3 mg (2.5 mg base)/3 mL nebulizatio n soln 06-03 00:00: 00 07-20 23:59 :00 No [id number] 1 mL EVERY 6 HOURS 1 mL EVERY 6 HOURS (route: inhalation ) Med Classific ation: Respirato ry Therapy Agents Lidoderm 5 % topical patch 06-03 00:00: 00 07-20 23:59 :00 No [id number] 1 adhesiv e patch, medicat ed DIRECTED 1 adhesive patch, medicated DIRECTED (route: topical) Med Classific ation: Dermatolo gical Mucinex 600 mg tablet, extended release 06-03 00:00: 00 07-20 23:59 :00 No [id number] 2 tablet 2 TIMES DAILY 2 tablet 2 TIMES DAILY (route: oral) Med Classific ation: Respirato ry Therapy Agents naloxone 4 mg/actuatio n nasal spray 06-03 00:00: 00 07-20 23:59 :00 No [id number] Per instruc tions NEEDED Per instructio ns NEEDED (route: nasal) Med Classific ation: Antidotes and other Reversal Agents ondansetron HCl 8 mg tablet 06-03 00:00: 00 07-20 23:59 :00 No [id number] 1 tablet EVERY 6 HOURS 1 tablet EVERY 6 HOURS (route: oral) Med Classific ation: Gastroint estinal Therapy Agents tamsulosin 0.4 mg capsule 06-03 00:00: 00 07-20 23:59 :00 No [id number] 2 capsule DAILY 2 capsule DAILY (route: oral) Med Classific ation: Genitouri nary Therapy Thera-M 9 mg iron-400 mcg tablet 06-03 00:00: 00 07-20 23:59 :00 No [id number] 1 tablet DAILY 1 tablet DAILY (route: oral) Med Classific ation: Electroly te Balance-N utritiona l Products thiamine HCl (vitamin B1) 100 mg tablet 06-03 00:00: 00 07-20 23:59 :00 No [id number] 1 tablet DAILY 1 tablet DAILY (route: oral) Med Classific ation: Electroly te Balance-N utritiona l Products Trelegy Ellipta 100 mcg-62.5 mcg-25 mcg powder for inhalation 06-03 00:00: 00 07-20 23:59 :00 No [id number] 1 inhalat ion DAILY 1 inhalation DAILY (route: inhalation ) Med Classific ation: Respirato ry Therapy Agents Vitamin D3 25 mcg (1,000 unit) tablet 06-03 00:00: 00 07-20 23:59 :00 No [id number] 1 tablet DAILY 1 tablet DAILY (route: oral) Med Classific ation: Electroly te Balance-N utritiona l Products oxygen gas for inhalation 06-07 00:00: 00 07-20 23:59 :00 No [id number] 2 Liter O2 - CONTINUOUS 2 Liter O2 - CONTINUOUS (route: inhalation ) Med Classific ation: Medical Supplies and Durable Medical Equipment (DME) aluminum-ma g hydroxide-s imethicone 200 mg-200 mg-20 mg/5 mL oral susp 2024-09 00:00: 00 Yes [id number] 15 mL EVERY 6 HOURS 15 mL EVERY 6 HOURS (route: oral) Med Classific ation: Gastroint estinal Therapy Agents atorvastati n 20 mg tablet 2024-09 00:00: 00 Yes [id number] 1 tablet BEDTIME 1 tablet BEDTIME (route: oral) Med Classific ation: Cardiovas cular Therapy Agents clopidogrel 75 mg tablet 2024-09 00:00: 00 Yes [id number] 1 tablet DAILY 1 tablet DAILY (route: oral) Med Classific ation: Hematolog ical Agents furosemide 40 mg tablet 2024-09 00:00: 00 Yes [id number] 1 tablet DAILY 1 tablet DAILY (route: oral) Med Classific ation: Cardiovas cular Therapy Agents hydrocodone 5 mg-acetamin ophen 325 mg tablet 2024-09 00:00: 00 Yes [id number] 1 tablet 2 TIMES DAILY 1 tablet 2 TIMES DAILY (route: oral) Med Classific ation: Analgesic , Anti-infl ammatory or Antipyret ic ipratropium 0.5 mg-albutero l 3 mg (2.5 mg base)/3 mL nebulizatio n soln 2024-09 00:00: 00 Yes [id number] 3 mL EVERY 4 HOURS 3 mL EVERY 4 HOURS (route: inhalation ) Med Classific ation: Respirato ry Therapy Agents levofloxaci n 750 mg tablet 2024-09 00:00: 00 07-31 23:59 :00 No [id number] 1 tablet DAILY 1 tablet DAILY (route: oral) Med Classific ation: Anti-Infe ctive Agents LIDOCAINE PAIN RELIEF 5% 2024-09 00:00: 00 Yes [id number] 1 patch NEEDED 1 patch A S NEEDED (route: TOPICALLY) Med Classific ation: ANALGESIC S mecobalamin (vitamin B12) 5,000 mcg disintegrat ing tablet 2024-09 00:00: 00 Yes [id number] 1 tablet DAILY 1 tablet DAILY (route: oral) Med Classific ation: Electroly te Balance-N utritiona l Products mirtazapine 7.5 mg tablet 2024-09 00:00: 00 Yes [id number] 1 tablet BEDTIME 1 tablet BEDTIME (route: oral) Med Classific ation: Central Nervous System Agents Mucinex 1,200 mg tablet, extended release 2024-09 00:00: 00 Yes [id number] 1 tablet 2 TIMES DAILY 1 tablet 2 TIMES DAILY (route: oral) Med Classific ation: Respirato ry Therapy Agents prednisone 20 mg tablet 2024-09 00:00: 00 07-24 23:59 :00 No [id number] 2 tablet DAILY 2 tablet DAILY (route: oral) Med Classific ation: Endocrine tamsulosin 0.4 mg capsule 2024-09 00:00: 00 Yes [id number] 1 capsule BEDTIME 1 capsule BEDTIME (route: oral) Med Classific ation: Genitouri nary Therapy trazodone 50 mg tablet 2024-09 00:00: 00 Yes [id number] 1 tablet BEDTIME 1 tablet BEDTIME (route: oral) Med Classific ation: Central Nervous System Agents Xanax 0.5 mg tablet 2024-09 00:00: 00 Yes [id number] 1 tablet EVERY 6 HOURS 1 tablet [...] SCIC, AND/OR DC.] Future Scheduled Test HOME [facility] MAY ACCEPT ORDERS FROM THE [...] BLOCKAGE/LEAKAGE, HEAVY SEDIMENT. 1 - 3 PRN GROUP HOME VISITS FOR CATHETER CHANGE(S) AND/OR TROUBLESHOOTING. [code = SKILLED NURSE TO INSTRUCT PATIENT/CAREGIVER AND PERFORM CARE AND MANAGEMENT OF INDWELLING URINARY CATHETER. INDWELLING CATHETER INSERTION WITH 16 FR CATHETER WITH 10 ML BALLOON VIA STERILE TECHNIQUE, CHANGE Q 4 WEEKS AND PRN FOR LEAKING OR MALFUNCTIONING CATHETER. IRRIGATE URINARY CATHETER WITH 30-60CC NORMAL SALINE PRN BLOCKAGE/LEAKAGE, HEAVY SEDIMENT. 1 - 3 PRN GROUP HOME VISITS FOR CATHETER CHANGE(S) AND/OR TROUBLESHOOTING.] Future [...] MAINTAIN SITUATIONAL AWARENESS AND WILL NOTIFY CLINICAL FILM PROCESS OPERATOR AND PHYSICIAN/PROVIDER WITH ANY CHANGE IN CONDITION. [code = SKILLED NURSE TO PERFORM ENVIRONMENTAL SAFETY RISK ASSESSMENT AND FALL RISK ASSESSMENT AND PROVIDE INSTRUCTION TO IMPLEMENT ENVIRONMENTAL SAFETY AND FALL PREVENTION STRATEGIES THROUGHOUT THE CERTIFICATION PERIOD. SKILLED NURSE WILL MAINTAIN SITUATIONAL AWARENESS AND WILL NOTIFY CLINICAL FILM PROCESS OPERATOR AND PHYSICIAN/PROVIDER WITH ANY CHANGE IN CONDITION.] [...] CARE WILL BE ESTABLISHED THAT MEETS PATIENT'S GROUP HOME NEEDS AND INCLUDES PATIENT GOAL FOR HOME [...] End Date/Time Encounter Type Admission Type Attending [facility] [place] Care Department Encounter ID Discharge Date Discharge Status Discharge Condition Discharge Reason Percent Goals Met 2025-07-22 00:00:00 2025-09-19 00:00:00 Outpatient READMISSIO N [facility] [id number] 22.58
--- OUTSIDE RECORDS SUMMARY | 2025-09-18 18:00 | XMS_ITS | Clinical Summary ---
Author Organization Unknown Care Team Providers Care Contact Officer Name Role Phone MICHELLE GARRISON, CARMEN Unavailable Unavailable WINDY RAUSCH, MELISSA Unavailable Unavailable Payers Payer Name Policy Type Policy Number Effective Date Expira tion Date [facility] OPTUM PROGRAM - PDGM Problems [...] 09-23 00:00: 00 ATHSCL HEART DISEASE OF [place] CORONARY ARTERY W/O ANG PCTRS Active 09-23 [...] OF NICOTINE DEPENDENCE Active 09-23 00:00: 00 SENIOR CARE (CURRENT) USE OF ANTITHROMBOT ICS/ANTIPLAT ELETS Active 09-23 00:00: 00 SENIOR CARE (CURRENT) USE OF OPIATE ANALGESIC Active 09-23 [...] 06-03 00:00: 00 07-20 23:59 :00 No [id number] 1 tablet EVERY 6 HOURS 1 tablet EVERY 6 HOURS (route: oral) Med Classific ation: Central Nervous System Agents atorvastati n 80 mg tablet 06-03 00:00: 00 07-20 23:59 :00 No [id number] 1 tablet DAILY 1 tablet DAILY (route: oral) Med Classific ation: Cardiovas cular Therapy Agents B-Complex tablet 06-03 00:00: 00 07-20 23:59 :00 No [id number] 1 tablet DAILY 1 tablet DAILY (route: oral) Med Classific ation: Electroly te Balance-N utritiona l Products benzonatate 200 mg capsule 06-03 00:00: 00 07-20 23:59 :00 No [id number] 1 capsule 3 TIMES DAILY 1 capsule 3 TIMES DAILY (route: oral) Med Classific ation: Respirato ry Therapy Agents clopidogrel 75 mg tablet 06-03 00:00: 00 07-20 23:59 :00 No [id number] 1 tablet DAILY 1 tablet DAILY (route: oral) Med Classific ation: Hematolog ical Agents ferrous gluconate 324 mg (37.5 mg iron) tablet 06-03 00:00: 00 07-20 23:59 :00 No [id number] 1 tablet DAILY 1 tablet DAILY (route: oral) Med Classific ation: Electroly te Balance-N utritiona l Products folic acid 1 mg tablet 06-03 00:00: 00 07-20 23:59 :00 No [id number] 1 tablet DAILY 1 tablet DAILY (route: oral) Med Classific ation: Electroly te Balance-N utritiona l Products furosemide 40 mg tablet 06-03 00:00: 00 07-20 23:59 :00 No [id number] 1 tablet DAILY 1 tablet DAILY (route: oral) Med Classific ation: Cardiovas cular Therapy Agents hydrocodone 5 mg-acetamin ophen 325 mg tablet 06-03 00:00: 00 07-20 23:59 :00 No [id number] 1 tablet EVERY 4 HOURS 1 tablet EVERY 4 HOURS (route: oral) Med Classific ation: Analgesic , Anti-infl ammatory or Antipyret ic ipratropium 0.5 mg-albutero l 3 mg (2.5 mg base)/3 mL nebulizatio n soln 06-03 00:00: 00 07-20 23:59 :00 No [id number] 1 mL EVERY 6 HOURS 1 mL EVERY 6 HOURS (route: inhalation ) Med Classific ation: Respirato ry Therapy Agents Lidoderm 5 % topical patch 06-03 00:00: 00 07-20 23:59 :00 No [id number] 1 adhesiv e patch, medicat ed DIRECTED 1 adhesive patch, medicated DIRECTED (route: topical) Med Classific ation: Dermatolo gical Mucinex 600 mg tablet, extended release 06-03 00:00: 00 07-20 23:59 :00 No [id number] 2 tablet 2 TIMES DAILY 2 tablet 2 TIMES DAILY (route: oral) Med Classific ation: Respirato ry Therapy Agents naloxone 4 mg/actuatio n nasal spray 06-03 00:00: 00 07-20 23:59 :00 No [id number] Per instruc tions NEEDED Per instructio ns NEEDED (route: nasal) Med Classific ation: Antidotes and other Reversal Agents ondansetron HCl 8 mg tablet 06-03 00:00: 00 07-20 23:59 :00 No [id number] 1 tablet EVERY 6 HOURS 1 tablet EVERY 6 HOURS (route: oral) Med Classific ation: Gastroint estinal Therapy Agents tamsulosin 0.4 mg capsule 06-03 00:00: 00 07-20 23:59 :00 No [id number] 2 capsule DAILY 2 capsule DAILY (route: oral) Med Classific ation: Genitouri nary Therapy Thera-M 9 mg iron-400 mcg tablet 06-03 00:00: 00 07-20 23:59 :00 No [id number] 1 tablet DAILY 1 tablet DAILY (route: oral) Med Classific ation: Electroly te Balance-N utritiona l Products thiamine HCl (vitamin B1) 100 mg tablet 06-03 00:00: 00 07-20 23:59 :00 No [id number] 1 tablet DAILY 1 tablet DAILY (route: oral) Med Classific ation: Electroly te Balance-N utritiona l Products Trelegy Ellipta 100 mcg-62.5 mcg-25 mcg powder for inhalation 06-03 00:00: 00 07-20 23:59 :00 No [id number] 1 inhalat ion DAILY 1 inhalation DAILY (route: inhalation ) Med Classific ation: Respirato ry Therapy Agents Vitamin D3 25 mcg (1,000 unit) tablet 06-03 00:00: 00 07-20 23:59 :00 No [id number] 1 tablet DAILY 1 tablet DAILY (route: oral) Med Classific ation: Electroly te Balance-N utritiona l Products oxygen gas for inhalation 06-07 00:00: 00 07-20 23:59 :00 No [id number] 2 Liter O2 - CONTINUOUS 2 Liter O2 - CONTINUOUS (route: inhalation ) Med Classific ation: Medical Supplies and Durable Medical Equipment (DME) aluminum-ma g hydroxide-s imethicone 200 mg-200 mg-20 mg/5 mL oral susp 2024-09 00:00: 00 Yes [id number] 15 mL EVERY 6 HOURS 15 mL EVERY 6 HOURS (route: oral) Med Classific ation: Gastroint estinal Therapy Agents atorvastati n 20 mg tablet 2024-09 00:00: 00 Yes [id number] 1 tablet BEDTIME 1 tablet BEDTIME (route: oral) Med Classific ation: Cardiovas cular Therapy Agents clopidogrel 75 mg tablet 2024-09 00:00: 00 Yes [id number] 1 tablet DAILY 1 tablet DAILY (route: oral) Med Classific ation: Hematolog ical Agents furosemide 40 mg tablet 2024-09 00:00: 00 Yes [id number] 1 tablet DAILY 1 tablet DAILY (route: oral) Med Classific ation: Cardiovas cular Therapy Agents hydrocodone 5 mg-acetamin ophen 325 mg tablet 2024-09 00:00: 00 Yes [id number] 1 tablet 2 TIMES DAILY 1 tablet 2 TIMES DAILY (route: oral) Med Classific ation: Analgesic , Anti-infl ammatory or Antipyret ic ipratropium 0.5 mg-albutero l 3 mg (2.5 mg base)/3 mL nebulizatio n soln 2024-09 00:00: 00 Yes [id number] 3 mL EVERY 4 HOURS 3 mL EVERY 4 HOURS (route: inhalation ) Med Classific ation: Respirato ry Therapy Agents levofloxaci n 750 mg tablet 2024-09 00:00: 00 07-31 23:59 :00 No [id number] 1 tablet DAILY 1 tablet DAILY (route: oral) Med Classific ation: Anti-Infe ctive Agents LIDOCAINE PAIN RELIEF 5% 2024-09 00:00: 00 Yes [id number] 1 patch NEEDED 1 patch A S NEEDED (route: TOPICALLY) Med Classific ation: ANALGESIC S mecobalamin (vitamin B12) 5,000 mcg disintegrat ing tablet 2024-09 00:00: 00 Yes [id number] 1 tablet DAILY 1 tablet DAILY (route: oral) Med Classific ation: Electroly te Balance-N utritiona l Products mirtazapine 7.5 mg tablet 2024-09 00:00: 00 Yes [id number] 1 tablet BEDTIME 1 tablet BEDTIME (route: oral) Med Classific ation: Central Nervous System Agents Mucinex 1,200 mg tablet, extended release 2024-09 00:00: 00 Yes [id number] 1 tablet 2 TIMES DAILY 1 tablet 2 TIMES DAILY (route: oral) Med Classific ation: Respirato ry Therapy Agents prednisone 20 mg tablet 2024-09 00:00: 00 07-24 23:59 :00 No [id number] 2 tablet DAILY 2 tablet DAILY (route: oral) Med Classific ation: Endocrine tamsulosin 0.4 mg capsule 2024-09 00:00: 00 Yes [id number] 1 capsule BEDTIME 1 capsule BEDTIME (route: oral) Med Classific ation: Genitouri nary Therapy trazodone 50 mg tablet 2024-09 00:00: 00 Yes [id number] 1 tablet BEDTIME 1 tablet BEDTIME (route: oral) Med Classific ation: Central Nervous System Agents Xanax 0.5 mg tablet 2024-09 00:00: 00 Yes [id number] 1 tablet EVERY 6 HOURS 1 tablet [...] SCIC, AND/OR DC.] Future Scheduled Test HOME [facility] MAY ACCEPT ORDERS FROM THE FOLLOWING [...] USP VISITS FOR CATHETER CHANGE(S) AND/OR TROUBLESHOOTING. [code [...] PRN USP VISITS FOR CATHETER CHANGE(S) AND/OR TROUBLESHOOTING.] Future [...] MAINTAIN SITUATIONAL AWARENESS AND WILL NOTIFY CLINICAL DEPLOYMENT ENGINEER AND PHYSICIAN/PROVIDER WITH ANY CHANGE IN CONDITION. [code = SKILLED NURSE TO PERFORM ENVIRONMENTAL SAFETY RISK ASSESSMENT AND FALL RISK ASSESSMENT AND PROVIDE INSTRUCTION TO IMPLEMENT ENVIRONMENTAL SAFETY AND FALL PREVENTION STRATEGIES THROUGHOUT THE CERTIFICATION PERIOD. SKILLED NURSE WILL MAINTAIN SITUATIONAL AWARENESS AND WILL NOTIFY CLINICAL DEPLOYMENT ENGINEER AND PHYSICIAN/PROVIDER WITH ANY CHANGE IN CONDITION.] [...] End Date/Time Encounter Type Admission Type Attending [facility] Care Department Encounter ID Discharge Date Discharge Status Discharge Condition Discharge Reason Percent Goals Met 2025-07-22 00:00:00 2025-09-19 00:00:00 Outpatient [facility]MISSIO N [facility] [id number] 22.58
--- OUTSIDE RECORDS SUMMARY | 2025-09-18 18:00 | XMS_ITS | Clinical Summary ---
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 Name Role Phone MICHELLE GARRISON, CARMEN Unavailable [...] 09-23 00:00: 00 ATHSCL HEART DISEASE OF [place] CORONARY ARTERY W/O ANG PCTRS Active 09-23 [...] 06-03 00:00: 00 07-20 23:59 :00 No [id number] 1 tablet EVERY 6 HOURS 1 tablet EVERY 6 HOURS (route: oral) Med Classific ation: Central Nervous System Agents atorvastati n 80 mg tablet 06-03 00:00: 00 07-20 23:59 :00 No [id number] 1 tablet DAILY 1 tablet DAILY (route: oral) Med Classific ation: Cardiovas cular Therapy Agents B-Complex tablet 06-03 00:00: 00 07-20 23:59 :00 No [id number] 1 tablet DAILY 1 tablet DAILY (route: oral) Med Classific ation: Electroly te Balance-N utritiona l Products benzonatate 200 mg capsule 06-03 00:00: 00 07-20 23:59 :00 No [id number] 1 capsule 3 TIMES DAILY 1 capsule 3 TIMES DAILY (route: oral) Med Classific ation: Respirato ry Therapy Agents clopidogrel 75 mg tablet 06-03 00:00: 00 07-20 23:59 :00 No [id number] 1 tablet DAILY 1 tablet DAILY (route: oral) Med Classific ation: Hematolog ical Agents ferrous gluconate 324 mg (37.5 mg iron) tablet 06-03 00:00: 00 07-20 23:59 :00 No [id number] 1 tablet DAILY 1 tablet DAILY (route: oral) Med Classific ation: Electroly te Balance-N utritiona l Products folic acid 1 mg tablet 06-03 00:00: 00 07-20 23:59 :00 No [id number] 1 tablet DAILY 1 tablet DAILY (route: oral) Med Classific ation: Electroly te Balance-N utritiona l Products furosemide 40 mg tablet 06-03 00:00: 00 07-20 23:59 :00 No [id number] 1 tablet DAILY 1 tablet DAILY (route: oral) Med Classific ation: Cardiovas cular Therapy Agents hydrocodone 5 mg-acetamin ophen 325 mg tablet 06-03 00:00: 00 07-20 23:59 :00 No [id number] 1 tablet EVERY 4 HOURS 1 tablet EVERY 4 HOURS (route: oral) Med Classific ation: Analgesic , Anti-infl ammatory or Antipyret ic ipratropium 0.5 mg-albutero l 3 mg (2.5 mg base)/3 mL nebulizatio n soln 06-03 00:00: 00 07-20 23:59 :00 No [id number] 1 mL EVERY 6 HOURS 1 mL EVERY 6 HOURS (route: inhalation ) Med Classific ation: Respirato ry Therapy Agents Lidoderm 5 % topical patch 06-03 00:00: 00 07-20 23:59 :00 No [id number] 1 adhesiv e patch, medicat ed DIRECTED 1 adhesive patch, medicated DIRECTED (route: topical) Med Classific ation: Dermatolo gical Mucinex 600 mg tablet, extended release 06-03 00:00: 00 07-20 23:59 :00 No [id number] 2 tablet 2 TIMES DAILY 2 tablet 2 TIMES DAILY (route: oral) Med Classific ation: Respirato ry Therapy Agents naloxone 4 mg/actuatio n nasal spray 06-03 00:00: 00 07-20 23:59 :00 No [id number] Per instruc tions NEEDED Per instructio ns NEEDED (route: nasal) Med Classific ation: Antidotes and other Reversal Agents ondansetron HCl 8 mg tablet 06-03 00:00: 00 07-20 23:59 :00 No [id number] 1 tablet EVERY 6 HOURS 1 tablet EVERY 6 HOURS (route: oral) Med Classific ation: Gastroint estinal Therapy Agents tamsulosin 0.4 mg capsule 06-03 00:00: 00 07-20 23:59 :00 No [id number] 2 capsule DAILY 2 capsule DAILY (route: oral) Med Classific ation: Genitouri nary Therapy Thera-M 9 mg iron-400 mcg tablet 06-03 00:00: 00 07-20 23:59 :00 No [id number] 1 tablet DAILY 1 tablet DAILY (route: oral) Med Classific ation: Electroly te Balance-N utritiona l Products thiamine HCl (vitamin B1) 100 mg tablet 06-03 00:00: 00 07-20 23:59 :00 No [id number] 1 tablet DAILY 1 tablet DAILY (route: oral) Med Classific ation: Electroly te Balance-N utritiona l Products Trelegy Ellipta 100 mcg-62.5 mcg-25 mcg powder for inhalation 06-03 00:00: 00 07-20 23:59 :00 No [id number] 1 inhalat ion DAILY 1 inhalation DAILY (route: inhalation ) Med Classific ation: Respirato ry Therapy Agents Vitamin D3 25 mcg (1,000 unit) tablet 06-03 00:00: 00 07-20 23:59 :00 No [id number] 1 tablet DAILY 1 tablet DAILY (route: oral) Med Classific ation: Electroly te Balance-N utritiona l Products oxygen gas for inhalation 06-07 00:00: 00 07-20 23:59 :00 No [id number] 2 Liter O2 - CONTINUOUS 2 Liter O2 - CONTINUOUS (route: inhalation ) Med Classific ation: Medical Supplies and Durable Medical Equipment (DME) aluminum-ma g hydroxide-s imethicone 200 mg-200 mg-20 mg/5 mL oral susp 2024-09 00:00: 00 Yes [id number] 15 mL EVERY 6 HOURS 15 mL EVERY 6 HOURS (route: oral) Med Classific ation: Gastroint estinal Therapy Agents atorvastati n 20 mg tablet 2024-09 00:00: 00 Yes [id number] 1 tablet BEDTIME 1 tablet BEDTIME (route: oral) Med Classific ation: Cardiovas cular Therapy Agents clopidogrel 75 mg tablet 2024-09 00:00: 00 Yes [id number] 1 tablet DAILY 1 tablet DAILY (route: oral) Med Classific ation: Hematolog ical Agents furosemide 40 mg tablet 2024-09 00:00: 00 Yes [id number] 1 tablet DAILY 1 tablet DAILY (route: oral) Med Classific ation: Cardiovas cular Therapy Agents hydrocodone 5 mg-acetamin ophen 325 mg tablet 2024-09 00:00: 00 Yes [id number] 1 tablet 2 TIMES DAILY 1 tablet 2 TIMES DAILY (route: oral) Med Classific ation: Analgesic , Anti-infl ammatory or Antipyret ic ipratropium 0.5 mg-albutero l 3 mg (2.5 mg base)/3 mL nebulizatio n soln 2024-09 00:00: 00 Yes [id number] 3 mL EVERY 4 HOURS 3 mL EVERY 4 HOURS (route: inhalation ) Med Classific ation: Respirato ry Therapy Agents levofloxaci n 750 mg tablet 2024-09 00:00: 00 07-31 23:59 :00 No [id number] 1 tablet DAILY 1 tablet DAILY (route: oral) Med Classific ation: Anti-Infe ctive Agents LIDOCAINE PAIN RELIEF 5% 2024-09 00:00: 00 Yes [id number] 1 patch NEEDED 1 patch A S NEEDED (route: TOPICALLY) Med Classific ation: ANALGESIC S mecobalamin (vitamin B12) 5,000 mcg disintegrat ing tablet 2024-09 00:00: 00 Yes [id number] 1 tablet DAILY 1 tablet DAILY (route: oral) Med Classific ation: Electroly te Balance-N utritiona l Products mirtazapine 7.5 mg tablet 2024-09 00:00: 00 Yes [id number] 1 tablet BEDTIME 1 tablet BEDTIME (route: oral) Med Classific ation: Central Nervous System Agents Mucinex 1,200 mg tablet, extended release 2024-09 00:00: 00 Yes [id number] 1 tablet 2 TIMES DAILY 1 tablet 2 TIMES DAILY (route: oral) Med Classific ation: Respirato ry Therapy Agents prednisone 20 mg tablet 2024-09 00:00: 00 07-24 23:59 :00 No [id number] 2 tablet DAILY 2 tablet DAILY (route: oral) Med Classific ation: Endocrine tamsulosin 0.4 mg capsule 2024-09 00:00: 00 Yes [id number] 1 capsule BEDTIME 1 capsule BEDTIME (route: oral) Med Classific ation: Genitouri nary Therapy trazodone 50 mg tablet 2024-09 00:00: 00 Yes [id number] 1 tablet BEDTIME 1 tablet BEDTIME (route: oral) Med Classific ation: Central Nervous System Agents Xanax 0.5 mg tablet 2024-09 00:00: 00 Yes [id number] 1 tablet EVERY 6 HOURS 1 tablet [...] DC.] Future Scheduled Test HOME [facility] MAY ACCEPT ORDERS FROM THE FOLLOWING [...] BLOCKAGE/LEAKAGE, HEAVY SEDIMENT. 1 - 3 PRN RESIDENTIAL VISITS FOR CATHETER CHANGE(S) AND/OR TROUBLESHOOTING. [code = SKILLED NURSE TO INSTRUCT PATIENT/CAREGIVER AND PERFORM CARE AND MANAGEMENT OF INDWELLING URINARY CATHETER. INDWELLING CATHETER INSERTION WITH 16 FR CATHETER WITH 10 ML BALLOON VIA STERILE TECHNIQUE, CHANGE Q 4 WEEKS AND PRN FOR LEAKING OR MALFUNCTIONING CATHETER. IRRIGATE URINARY CATHETER WITH 30-60CC NORMAL SALINE PRN BLOCKAGE/LEAKAGE, HEAVY SEDIMENT. 1 - 3 PRN RESIDENTIAL VISITS FOR CATHETER CHANGE(S) AND/OR TROUBLESHOOTING.] Future [...] MAINTAIN SITUATIONAL AWARENESS AND WILL NOTIFY CLINICAL COMMUNITY RESOURCE OFFICER AND PHYSICIAN/PROVIDER WITH ANY CHANGE IN CONDITION. [code = SKILLED NURSE TO PERFORM ENVIRONMENTAL SAFETY RISK ASSESSMENT AND FALL RISK ASSESSMENT AND PROVIDE INSTRUCTION TO IMPLEMENT ENVIRONMENTAL SAFETY AND FALL PREVENTION STRATEGIES THROUGHOUT THE CERTIFICATION PERIOD. SKILLED NURSE WILL MAINTAIN SITUATIONAL AWARENESS AND WILL NOTIFY CLINICAL COMMUNITY RESOURCE OFFICER AND PHYSICIAN/PROVIDER WITH ANY CHANGE IN CONDITION.] [...] CARE WILL BE ESTABLISHED THAT MEETS PATIENT'S RESIDENTIAL NEEDS AND INCLUDES PATIENT GOAL FOR HOME [...] End Date/Time Encounter Type Admission Type Attending [facility] Care Department Encounter ID Discharge Date Discharge Status Discharge Condition Discharge Reason Percent Goals Met 2025-07-22 00:00:00 2025-09-19 00:00:00 Outpatient [facility]MISSIO N [facility] [id number] 22.58
--- OUTSIDE RECORDS SUMMARY | 2025-09-18 18:00 | XMS_ITS | Clinical Summary ---
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 Name Role Phone MICHELLE GARRISON, CARMEN Unavailable Unavailable WINDY RAUSCH, MELISSA Unavailable Unavailable Payers Payer Name Policy Type Policy Number Effective Date Expira tion Date [facility] OPTUM PROGRAM - PDGM Problems Condition [...] 09-23 00:00: 00 ATHSCL HEART DISEASE OF [place] CORONARY ARTERY W/O ANG PCTRS Active 09-23 [...] OF NICOTINE DEPENDENCE Active 09-23 00:00: 00 NURSING HOME (CURRENT) USE OF ANTITHROMBOT ICS/ANTIPLAT ELETS Active 09-23 00:00: 00 NURSING HOME (CURRENT) USE OF OPIATE ANALGESIC Active 09-23 [...] 06-03 00:00: 00 07-20 23:59 :00 No [id number] 1 tablet EVERY 6 HOURS 1 tablet EVERY 6 HOURS (route: oral) Med Classific ation: Central Nervous System Agents atorvastati n 80 mg tablet 06-03 00:00: 00 07-20 23:59 :00 No [id number] 1 tablet DAILY 1 tablet DAILY (route: oral) Med Classific ation: Cardiovas cular Therapy Agents B-Complex tablet 06-03 00:00: 00 07-20 23:59 :00 No [id number] 1 tablet DAILY 1 tablet DAILY (route: oral) Med Classific ation: Electroly te Balance-N utritiona l Products benzonatate 200 mg capsule 06-03 00:00: 00 07-20 23:59 :00 No [id number] 1 capsule 3 TIMES DAILY 1 capsule 3 TIMES DAILY (route: oral) Med Classific ation: Respirato ry Therapy Agents clopidogrel 75 mg tablet 06-03 00:00: 00 07-20 23:59 :00 No [id number] 1 tablet DAILY 1 tablet DAILY (route: oral) Med Classific ation: Hematolog ical Agents ferrous gluconate 324 mg (37.5 mg iron) tablet 06-03 00:00: 00 07-20 23:59 :00 No [id number] 1 tablet DAILY 1 tablet DAILY (route: oral) Med Classific ation: Electroly te Balance-N utritiona l Products folic acid 1 mg tablet 06-03 00:00: 00 07-20 23:59 :00 No [id number] 1 tablet DAILY 1 tablet DAILY (route: oral) Med Classific ation: Electroly te Balance-N utritiona l Products furosemide 40 mg tablet 06-03 00:00: 00 07-20 23:59 :00 No [id number] 1 tablet DAILY 1 tablet DAILY (route: oral) Med Classific ation: Cardiovas cular Therapy Agents hydrocodone 5 mg-acetamin ophen 325 mg tablet 06-03 00:00: 00 07-20 23:59 :00 No [id number] 1 tablet EVERY 4 HOURS 1 tablet EVERY 4 HOURS (route: oral) Med Classific ation: Analgesic , Anti-infl ammatory or Antipyret ic ipratropium 0.5 mg-albutero l 3 mg (2.5 mg base)/3 mL nebulizatio n soln 06-03 00:00: 00 07-20 23:59 :00 No [id number] 1 mL EVERY 6 HOURS 1 mL EVERY 6 HOURS (route: inhalation ) Med Classific ation: Respirato ry Therapy Agents Lidoderm 5 % topical patch 06-03 00:00: 00 07-20 23:59 :00 No [id number] 1 adhesiv e patch, medicat ed DIRECTED 1 adhesive patch, medicated DIRECTED (route: topical) Med Classific ation: Dermatolo gical Mucinex 600 mg tablet, extended release 06-03 00:00: 00 07-20 23:59 :00 No [id number] 2 tablet 2 TIMES DAILY 2 tablet 2 TIMES DAILY (route: oral) Med Classific ation: Respirato ry Therapy Agents naloxone 4 mg/actuatio n nasal spray 06-03 00:00: 00 07-20 23:59 :00 No [id number] Per instruc tions NEEDED Per instructio ns NEEDED (route: nasal) Med Classific ation: Antidotes and other Reversal Agents ondansetron HCl 8 mg tablet 06-03 00:00: 00 07-20 23:59 :00 No [id number] 1 tablet EVERY 6 HOURS 1 tablet EVERY 6 HOURS (route: oral) Med Classific ation: Gastroint estinal Therapy Agents tamsulosin 0.4 mg capsule 06-03 00:00: 00 07-20 23:59 :00 No [id number] 2 capsule DAILY 2 capsule DAILY (route: oral) Med Classific ation: Genitouri nary Therapy Thera-M 9 mg iron-400 mcg tablet 06-03 00:00: 00 07-20 23:59 :00 No [id number] 1 tablet DAILY 1 tablet DAILY (route: oral) Med Classific ation: Electroly te Balance-N utritiona l Products thiamine HCl (vitamin B1) 100 mg tablet 06-03 00:00: 00 07-20 23:59 :00 No [id number] 1 tablet DAILY 1 tablet DAILY (route: oral) Med Classific ation: Electroly te Balance-N utritiona l Products Trelegy Ellipta 100 mcg-62.5 mcg-25 mcg powder for inhalation 06-03 00:00: 00 07-20 23:59 :00 No [id number] 1 inhalat ion DAILY 1 inhalation DAILY (route: inhalation ) Med Classific ation: Respirato ry Therapy Agents Vitamin D3 25 mcg (1,000 unit) tablet 06-03 00:00: 00 07-20 23:59 :00 No [id number] 1 tablet DAILY 1 tablet DAILY (route: oral) Med Classific ation: Electroly te Balance-N utritiona l Products oxygen gas for inhalation 06-07 00:00: 00 07-20 23:59 :00 No [id number] 2 Liter O2 - CONTINUOUS 2 Liter O2 - CONTINUOUS (route: inhalation ) Med Classific ation: Medical Supplies and Durable Medical Equipment (DME) aluminum-ma g hydroxide-s imethicone 200 mg-200 mg-20 mg/5 mL oral susp 2024-09 00:00: 00 Yes [id number] 15 mL EVERY 6 HOURS 15 mL EVERY 6 HOURS (route: oral) Med Classific ation: Gastroint estinal Therapy Agents atorvastati n 20 mg tablet 2024-09 00:00: 00 Yes [id number] 1 tablet BEDTIME 1 tablet BEDTIME (route: oral) Med Classific ation: Cardiovas cular Therapy Agents clopidogrel 75 mg tablet 2024-09 00:00: 00 Yes [id number] 1 tablet DAILY 1 tablet DAILY (route: oral) Med Classific ation: Hematolog ical Agents furosemide 40 mg tablet 2024-09 00:00: 00 Yes [id number] 1 tablet DAILY 1 tablet DAILY (route: oral) Med Classific ation: Cardiovas cular Therapy Agents hydrocodone 5 mg-acetamin ophen 325 mg tablet 2024-09 00:00: 00 Yes [id number] 1 tablet 2 TIMES DAILY 1 tablet 2 TIMES DAILY (route: oral) Med Classific ation: Analgesic , Anti-infl ammatory or Antipyret ic ipratropium 0.5 mg-albutero l 3 mg (2.5 mg base)/3 mL nebulizatio n soln 2024-09 00:00: 00 Yes [id number] 3 mL EVERY 4 HOURS 3 mL EVERY 4 HOURS (route: inhalation ) Med Classific ation: Respirato ry Therapy Agents levofloxaci n 750 mg tablet 2024-09 00:00: 00 07-31 23:59 :00 No [id number] 1 tablet DAILY 1 tablet DAILY (route: oral) Med Classific ation: Anti-Infe ctive Agents LIDOCAINE PAIN RELIEF 5% 2024-09 00:00: 00 Yes [id number] 1 patch NEEDED 1 patch A S NEEDED (route: TOPICALLY) Med Classific ation: ANALGESIC S mecobalamin (vitamin B12) 5,000 mcg disintegrat ing tablet 2024-09 00:00: 00 Yes [id number] 1 tablet DAILY 1 tablet DAILY (route: oral) Med Classific ation: Electroly te Balance-N utritiona l Products mirtazapine 7.5 mg tablet 2024-09 00:00: 00 Yes [id number] 1 tablet BEDTIME 1 tablet BEDTIME (route: oral) Med Classific ation: Central Nervous System Agents Mucinex 1,200 mg tablet, extended release 2024-09 00:00: 00 Yes [id number] 1 tablet 2 TIMES DAILY 1 tablet 2 TIMES DAILY (route: oral) Med Classific ation: Respirato ry Therapy Agents prednisone 20 mg tablet 2024-09 00:00: 00 07-24 23:59 :00 No [id number] 2 tablet DAILY 2 tablet DAILY (route: oral) Med Classific ation: Endocrine tamsulosin 0.4 mg capsule 2024-09 00:00: 00 Yes [id number] 1 capsule BEDTIME 1 capsule BEDTIME (route: oral) Med Classific ation: Genitouri nary Therapy trazodone 50 mg tablet 2024-09 00:00: 00 Yes [id number] 1 tablet BEDTIME 1 tablet BEDTIME (route: oral) Med Classific ation: Central Nervous System Agents Xanax 0.5 mg tablet 2024-09 00:00: 00 Yes [id number] 1 tablet EVERY 6 HOURS 1 tablet [...] SCIC, AND/OR DC.] Future Scheduled Test HOME [facility] MAY ACCEPT ORDERS FROM [...] MAINTAIN SITUATIONAL AWARENESS AND WILL NOTIFY CLINICAL NET SQL DEVELOPER AND PHYSICIAN/PROVIDER WITH ANY CHANGE IN CONDITION. [code = SKILLED NURSE TO PERFORM ENVIRONMENTAL SAFETY RISK ASSESSMENT AND FALL RISK ASSESSMENT AND PROVIDE INSTRUCTION TO IMPLEMENT ENVIRONMENTAL SAFETY AND FALL PREVENTION STRATEGIES THROUGHOUT THE CERTIFICATION PERIOD. SKILLED NURSE WILL MAINTAIN SITUATIONAL AWARENESS AND WILL NOTIFY CLINICAL NET SQL DEVELOPER AND PHYSICIAN/PROVIDER WITH ANY CHANGE IN CONDITION.] [...] End Date/Time Encounter Type Admission Type Attending [facility] Care Department Encounter ID Discharge Date Discharge Status Discharge Condition Discharge Reason Percent Goals Met 2025-07-22 00:00:00 2025-09-19 00:00:00 Outpatient READMISSIO N [facility] [id number] 22.58
--- OUTSIDE RECORDS SUMMARY | 2025-09-18 18:00 | XMS_ITS | Clinical Summary ---
Author Organization Unknown Care Team Providers Care Percussion Teacher Name Role Phone MICHELLE GARRISON, CARMEN Unavailable Unavailable WINDY RAUSCH, MELISSA Unavailable Unavailable Payers Payer Name Policy Type Policy Number Effective Date Expira tion Date [facility] OPTUM PROGRAM - PDGM Problems Condition Name [...] 09-23 00:00: 00 ATHSCL HEART DISEASE OF [place] CORONARY ARTERY W/O ANG PCTRS Active 09-23 [...] OF NICOTINE DEPENDENCE Active 09-23 00:00: 00 [facility] (CURRENT) USE OF ANTITHROMBOT ICS/ANTIPLAT ELETS Active 09-23 00:00: 00 [facility] (CURRENT) USE OF OPIATE ANALGESIC Active 09-23 [...] 06-03 00:00: 00 07-20 23:59 :00 No [id number] 1 tablet EVERY 6 HOURS 1 tablet EVERY 6 HOURS (route: oral) Med Classific ation: Central Nervous System Agents atorvastati n 80 mg tablet 06-03 00:00: 00 07-20 23:59 :00 No [id number] 1 tablet DAILY 1 tablet DAILY (route: oral) Med Classific ation: Cardiovas cular Therapy Agents B-Complex tablet 06-03 00:00: 00 07-20 23:59 :00 No [id number] 1 tablet DAILY 1 tablet DAILY (route: oral) Med Classific ation: Electroly te Balance-N utritiona l Products benzonatate 200 mg capsule 06-03 00:00: 00 07-20 23:59 :00 No [id number] 1 capsule 3 TIMES DAILY 1 capsule 3 TIMES DAILY (route: oral) Med Classific ation: Respirato ry Therapy Agents clopidogrel 75 mg tablet 06-03 00:00: 00 07-20 23:59 :00 No [id number] 1 tablet DAILY 1 tablet DAILY (route: oral) Med Classific ation: Hematolog ical Agents ferrous gluconate 324 mg (37.5 mg iron) tablet 06-03 00:00: 00 07-20 23:59 :00 No [id number] 1 tablet DAILY 1 tablet DAILY (route: oral) Med Classific ation: Electroly te Balance-N utritiona l Products folic acid 1 mg tablet 06-03 00:00: 00 07-20 23:59 :00 No [id number] 1 tablet DAILY 1 tablet DAILY (route: oral) Med Classific ation: Electroly te Balance-N utritiona l Products furosemide 40 mg tablet 06-03 00:00: 00 07-20 23:59 :00 No [id number] 1 tablet DAILY 1 tablet DAILY (route: oral) Med Classific ation: Cardiovas cular Therapy Agents hydrocodone 5 mg-acetamin ophen 325 mg tablet 06-03 00:00: 00 07-20 23:59 :00 No [id number] 1 tablet EVERY 4 HOURS 1 tablet EVERY 4 HOURS (route: oral) Med Classific ation: Analgesic , Anti-infl ammatory or Antipyret ic ipratropium 0.5 mg-albutero l 3 mg (2.5 mg base)/3 mL nebulizatio n soln 06-03 00:00: 00 07-20 23:59 :00 No [id number] 1 mL EVERY 6 HOURS 1 mL EVERY 6 HOURS (route: inhalation ) Med Classific ation: Respirato ry Therapy Agents Lidoderm 5 % topical patch 06-03 00:00: 00 07-20 23:59 :00 No [id number] 1 adhesiv e patch, medicat ed DIRECTED 1 adhesive patch, medicated DIRECTED (route: topical) Med Classific ation: Dermatolo gical Mucinex 600 mg tablet, extended release 06-03 00:00: 00 07-20 23:59 :00 No [id number] 2 tablet 2 TIMES DAILY 2 tablet 2 TIMES DAILY (route: oral) Med Classific ation: Respirato ry Therapy Agents naloxone 4 mg/actuatio n nasal spray 06-03 00:00: 00 07-20 23:59 :00 No [id number] Per instruc tions NEEDED Per instructio ns NEEDED (route: nasal) Med Classific ation: Antidotes and other Reversal Agents ondansetron HCl 8 mg tablet 06-03 00:00: 00 07-20 23:59 :00 No [id number] 1 tablet EVERY 6 HOURS 1 tablet EVERY 6 HOURS (route: oral) Med Classific ation: Gastroint estinal Therapy Agents tamsulosin 0.4 mg capsule 06-03 00:00: 00 07-20 23:59 :00 No [id number] 2 capsule DAILY 2 capsule DAILY (route: oral) Med Classific ation: Genitouri nary Therapy Thera-M 9 mg iron-400 mcg tablet 06-03 00:00: 00 07-20 23:59 :00 No [id number] 1 tablet DAILY 1 tablet DAILY (route: oral) Med Classific ation: Electroly te Balance-N utritiona l Products thiamine HCl (vitamin B1) 100 mg tablet 06-03 00:00: 00 07-20 23:59 :00 No [id number] 1 tablet DAILY 1 tablet DAILY (route: oral) Med Classific ation: Electroly te Balance-N utritiona l Products Trelegy Ellipta 100 mcg-62.5 mcg-25 mcg powder for inhalation 06-03 00:00: 00 07-20 23:59 :00 No [id number] 1 inhalat ion DAILY 1 inhalation DAILY (route: inhalation ) Med Classific ation: Respirato ry Therapy Agents Vitamin D3 25 mcg (1,000 unit) tablet 06-03 00:00: 00 07-20 23:59 :00 No [id number] 1 tablet DAILY 1 tablet DAILY (route: oral) Med Classific ation: Electroly te Balance-N utritiona l Products oxygen gas for inhalation 06-07 00:00: 00 07-20 23:59 :00 No [id number] 2 Liter O2 - CONTINUOUS 2 Liter O2 - CONTINUOUS (route: inhalation ) Med Classific ation: Medical Supplies and Durable Medical Equipment (DME) aluminum-ma g hydroxide-s imethicone 200 mg-200 mg-20 mg/5 mL oral susp 2024-09 00:00: 00 Yes [id number] 15 mL EVERY 6 HOURS 15 mL EVERY 6 HOURS (route: oral) Med Classific ation: Gastroint estinal Therapy Agents atorvastati n 20 mg tablet 2024-09 00:00: 00 Yes [id number] 1 tablet BEDTIME 1 tablet BEDTIME (route: oral) Med Classific ation: Cardiovas cular Therapy Agents clopidogrel 75 mg tablet 2024-09 00:00: 00 Yes [id number] 1 tablet DAILY 1 tablet DAILY (route: oral) Med Classific ation: Hematolog ical Agents furosemide 40 mg tablet 2024-09 00:00: 00 Yes [id number] 1 tablet DAILY 1 tablet DAILY (route: oral) Med Classific ation: Cardiovas cular Therapy Agents hydrocodone 5 mg-acetamin ophen 325 mg tablet 2024-09 00:00: 00 Yes [id number] 1 tablet 2 TIMES DAILY 1 tablet 2 TIMES DAILY (route: oral) Med Classific ation: Analgesic , Anti-infl ammatory or Antipyret ic ipratropium 0.5 mg-albutero l 3 mg (2.5 mg base)/3 mL nebulizatio n soln 2024-09 00:00: 00 Yes [id number] 3 mL EVERY 4 HOURS 3 mL EVERY 4 HOURS (route: inhalation ) Med Classific ation: Respirato ry Therapy Agents levofloxaci n 750 mg tablet 2024-09 00:00: 00 07-31 23:59 :00 No [id number] 1 tablet DAILY 1 tablet DAILY (route: oral) Med Classific ation: Anti-Infe ctive Agents LIDOCAINE PAIN RELIEF 5% 2024-09 00:00: 00 Yes [id number] 1 patch NEEDED 1 patch A S NEEDED (route: TOPICALLY) Med Classific ation: ANALGESIC S mecobalamin (vitamin B12) 5,000 mcg disintegrat ing tablet 2024-09 00:00: 00 Yes [id number] 1 tablet DAILY 1 tablet DAILY (route: oral) Med Classific ation: Electroly te Balance-N utritiona l Products mirtazapine 7.5 mg tablet 2024-09 00:00: 00 Yes [id number] 1 tablet BEDTIME 1 tablet BEDTIME (route: oral) Med Classific ation: Central Nervous System Agents Mucinex 1,200 mg tablet, extended release 2024-09 00:00: 00 Yes [id number] 1 tablet 2 TIMES DAILY 1 tablet 2 TIMES DAILY (route: oral) Med Classific ation: Respirato ry Therapy Agents prednisone 20 mg tablet 2024-09 00:00: 00 07-24 23:59 :00 No [id number] 2 tablet DAILY 2 tablet DAILY (route: oral) Med Classific ation: Endocrine tamsulosin 0.4 mg capsule 2024-09 00:00: 00 Yes [id number] 1 capsule BEDTIME 1 capsule BEDTIME (route: oral) Med Classific ation: Genitouri nary Therapy trazodone 50 mg tablet 2024-09 00:00: 00 Yes [id number] 1 tablet BEDTIME 1 tablet BEDTIME (route: oral) Med Classific ation: Central Nervous System Agents Xanax 0.5 mg tablet 2024-09 00:00: 00 Yes [id number] 1 tablet EVERY 6 HOURS 1 tablet [...] SCIC, AND/OR DC.] Future Scheduled Test HOME [facility] MAY ACCEPT ORDERS FROM THE [...] BLOCKAGE/LEAKAGE, HEAVY SEDIMENT. 1 - 3 PRN NURSING HOME VISITS FOR CATHETER CHANGE(S) AND/OR TROUBLESHOOTING. [code = SKILLED NURSE TO INSTRUCT PATIENT/CAREGIVER AND PERFORM CARE AND MANAGEMENT OF INDWELLING URINARY CATHETER. INDWELLING CATHETER INSERTION WITH 16 FR CATHETER WITH 10 ML BALLOON VIA STERILE TECHNIQUE, CHANGE Q 4 WEEKS AND PRN FOR LEAKING OR MALFUNCTIONING CATHETER. IRRIGATE URINARY CATHETER WITH 30-60CC NORMAL SALINE PRN BLOCKAGE/LEAKAGE, HEAVY SEDIMENT. 1 - 3 PRN NURSING HOME VISITS FOR CATHETER CHANGE(S) AND/OR TROUBLESHOOTING.] [...] MAINTAIN SITUATIONAL AWARENESS AND WILL NOTIFY CLINICAL CRM SYSTEM ADMINISTRATOR AND PHYSICIAN/PROVIDER WITH ANY CHANGE IN CONDITION. [code = SKILLED NURSE TO PERFORM ENVIRONMENTAL SAFETY RISK ASSESSMENT AND FALL RISK ASSESSMENT AND PROVIDE INSTRUCTION TO IMPLEMENT ENVIRONMENTAL SAFETY AND FALL PREVENTION STRATEGIES THROUGHOUT THE CERTIFICATION PERIOD. SKILLED NURSE WILL MAINTAIN SITUATIONAL AWARENESS AND WILL NOTIFY CLINICAL CRM SYSTEM ADMINISTRATOR AND PHYSICIAN/PROVIDER WITH ANY CHANGE IN CONDITION.] [...] CARE WILL BE ESTABLISHED THAT MEETS PATIENT'S NURSING HOME NEEDS AND INCLUDES PATIENT GOAL FOR [...] End Date/Time Encounter Type Admission Type Attending [facility] Care Department Encounter ID Discharge Date Discharge Status Discharge Condition Discharge Reason Percent Goals Met 2025-07-22 00:00:00 2025-09-19 00:00:00 Outpatient READMISSIO N [facility] [id number] 22.58
--- OUTSIDE RECORDS SUMMARY | 2025-09-18 18:00 | XMS_ITS | Clinical Summary ---
Author Organization Unknown Care Team Providers Care National Van Owner Operator Name Role Phone MICHELLE GARRISON, CARMEN Unavailable Unavailable WINDY RAUSCH, MELISSA Unavailable Unavailable Payers Payer Name Policy Type Policy Number Effective Date Expira tion Date [facility] OPTUM PROGRAM - PDGM Problems Condition [...] 09-23 00:00: 00 ATHSCL HEART DISEASE OF [place] CORONARY ARTERY W/O ANG PCTRS Active 09-23 [...] OF NICOTINE DEPENDENCE Active 09-23 00:00: 00 SKILLED NURSING (CURRENT) USE OF ANTITHROMBOT ICS/ANTIPLAT ELETS Active 09-23 00:00: 00 SKILLED NURSING (CURRENT) USE OF OPIATE ANALGESIC Active 09-23 [...] 06-03 00:00: 00 07-20 23:59 :00 No [id number] 1 tablet EVERY 6 HOURS 1 tablet EVERY 6 HOURS (route: oral) Med Classific ation: Central Nervous System Agents atorvastati n 80 mg tablet 06-03 00:00: 00 07-20 23:59 :00 No [id number] 1 tablet DAILY 1 tablet DAILY (route: oral) Med Classific ation: Cardiovas cular Therapy Agents B-Complex tablet 06-03 00:00: 00 07-20 23:59 :00 No [id number] 1 tablet DAILY 1 tablet DAILY (route: oral) Med Classific ation: Electroly te Balance-N utritiona l Products benzonatate 200 mg capsule 06-03 00:00: 00 07-20 23:59 :00 No [id number] 1 capsule 3 TIMES DAILY 1 capsule 3 TIMES DAILY (route: oral) Med Classific ation: Respirato ry Therapy Agents clopidogrel 75 mg tablet 06-03 00:00: 00 07-20 23:59 :00 No [id number] 1 tablet DAILY 1 tablet DAILY (route: oral) Med Classific ation: Hematolog ical Agents ferrous gluconate 324 mg (37.5 mg iron) tablet 06-03 00:00: 00 07-20 23:59 :00 No [id number] 1 tablet DAILY 1 tablet DAILY (route: oral) Med Classific ation: Electroly te Balance-N utritiona l Products folic acid 1 mg tablet 06-03 00:00: 00 07-20 23:59 :00 No [id number] 1 tablet DAILY 1 tablet DAILY (route: oral) Med Classific ation: Electroly te Balance-N utritiona l Products furosemide 40 mg tablet 06-03 00:00: 00 07-20 23:59 :00 No [id number] 1 tablet DAILY 1 tablet DAILY (route: oral) Med Classific ation: Cardiovas cular Therapy Agents hydrocodone 5 mg-acetamin ophen 325 mg tablet 06-03 00:00: 00 07-20 23:59 :00 No [id number] 1 tablet EVERY 4 HOURS 1 tablet EVERY 4 HOURS (route: oral) Med Classific ation: Analgesic , Anti-infl ammatory or Antipyret ic ipratropium 0.5 mg-albutero l 3 mg (2.5 mg base)/3 mL nebulizatio n soln 06-03 00:00: 00 07-20 23:59 :00 No [id number] 1 mL EVERY 6 HOURS 1 mL EVERY 6 HOURS (route: inhalation ) Med Classific ation: Respirato ry Therapy Agents Lidoderm 5 % topical patch 06-03 00:00: 00 07-20 23:59 :00 No [id number] 1 adhesiv e patch, medicat ed DIRECTED 1 adhesive patch, medicated DIRECTED (route: topical) Med Classific ation: Dermatolo gical Mucinex 600 mg tablet, extended release 06-03 00:00: 00 07-20 23:59 :00 No [id number] 2 tablet 2 TIMES DAILY 2 tablet 2 TIMES DAILY (route: oral) Med Classific ation: Respirato ry Therapy Agents naloxone 4 mg/actuatio n nasal spray 06-03 00:00: 00 07-20 23:59 :00 No [id number] Per instruc tions NEEDED Per instructio ns NEEDED (route: nasal) Med Classific ation: Antidotes and other Reversal Agents ondansetron HCl 8 mg tablet 06-03 00:00: 00 07-20 23:59 :00 No [id number] 1 tablet EVERY 6 HOURS 1 tablet EVERY 6 HOURS (route: oral) Med Classific ation: Gastroint estinal Therapy Agents tamsulosin 0.4 mg capsule 06-03 00:00: 00 07-20 23:59 :00 No [id number] 2 capsule DAILY 2 capsule DAILY (route: oral) Med Classific ation: Genitouri nary Therapy Thera-M 9 mg iron-400 mcg tablet 06-03 00:00: 00 07-20 23:59 :00 No [id number] 1 tablet DAILY 1 tablet DAILY (route: oral) Med Classific ation: Electroly te Balance-N utritiona l Products thiamine HCl (vitamin B1) 100 mg tablet 06-03 00:00: 00 07-20 23:59 :00 No [id number] 1 tablet DAILY 1 tablet DAILY (route: oral) Med Classific ation: Electroly te Balance-N utritiona l Products Trelegy Ellipta 100 mcg-62.5 mcg-25 mcg powder for inhalation 06-03 00:00: 00 07-20 23:59 :00 No [id number] 1 inhalat ion DAILY 1 inhalation DAILY (route: inhalation ) Med Classific ation: Respirato ry Therapy Agents Vitamin D3 25 mcg (1,000 unit) tablet 06-03 00:00: 00 07-20 23:59 :00 No [id number] 1 tablet DAILY 1 tablet DAILY (route: oral) Med Classific ation: Electroly te Balance-N utritiona l Products oxygen gas for inhalation 06-07 00:00: 00 07-20 23:59 :00 No [id number] 2 Liter O2 - CONTINUOUS 2 Liter O2 - CONTINUOUS (route: inhalation ) Med Classific ation: Medical Supplies and Durable Medical Equipment (DME) aluminum-ma g hydroxide-s imethicone 200 mg-200 mg-20 mg/5 mL oral susp 2024-09 00:00: 00 Yes [id number] 15 mL EVERY 6 HOURS 15 mL EVERY 6 HOURS (route: oral) Med Classific ation: Gastroint estinal Therapy Agents atorvastati n 20 mg tablet 2024-09 00:00: 00 Yes [id number] 1 tablet BEDTIME 1 tablet BEDTIME (route: oral) Med Classific ation: Cardiovas cular Therapy Agents clopidogrel 75 mg tablet 2024-09 00:00: 00 Yes [id number] 1 tablet DAILY 1 tablet DAILY (route: oral) Med Classific ation: Hematolog ical Agents furosemide 40 mg tablet 2024-09 00:00: 00 Yes [id number] 1 tablet DAILY 1 tablet DAILY (route: oral) Med Classific ation: Cardiovas cular Therapy Agents hydrocodone 5 mg-acetamin ophen 325 mg tablet 2024-09 00:00: 00 Yes [id number] 1 tablet 2 TIMES DAILY 1 tablet 2 TIMES DAILY (route: oral) Med Classific ation: Analgesic , Anti-infl ammatory or Antipyret ic ipratropium 0.5 mg-albutero l 3 mg (2.5 mg base)/3 mL nebulizatio n soln 2024-09 00:00: 00 Yes [id number] 3 mL EVERY 4 HOURS 3 mL EVERY 4 HOURS (route: inhalation ) Med Classific ation: Respirato ry Therapy Agents levofloxaci n 750 mg tablet 2024-09 00:00: 00 07-31 23:59 :00 No [id number] 1 tablet DAILY 1 tablet DAILY (route: oral) Med Classific ation: Anti-Infe ctive Agents LIDOCAINE PAIN RELIEF 5% 2024-09 00:00: 00 Yes [id number] 1 patch NEEDED 1 patch A S NEEDED (route: TOPICALLY) Med Classific ation: ANALGESIC S mecobalamin (vitamin B12) 5,000 mcg disintegrat ing tablet 2024-09 00:00: 00 Yes [id number] 1 tablet DAILY 1 tablet DAILY (route: oral) Med Classific ation: Electroly te Balance-N utritiona l Products mirtazapine 7.5 mg tablet 2024-09 00:00: 00 Yes [id number] 1 tablet BEDTIME 1 tablet BEDTIME (route: oral) Med Classific ation: Central Nervous System Agents Mucinex 1,200 mg tablet, extended release 2024-09 00:00: 00 Yes [id number] 1 tablet 2 TIMES DAILY 1 tablet 2 TIMES DAILY (route: oral) Med Classific ation: Respirato ry Therapy Agents prednisone 20 mg tablet 2024-09 00:00: 00 07-24 23:59 :00 No [id number] 2 tablet DAILY 2 tablet DAILY (route: oral) Med Classific ation: Endocrine tamsulosin 0.4 mg capsule 2024-09 00:00: 00 Yes [id number] 1 capsule BEDTIME 1 capsule BEDTIME (route: oral) Med Classific ation: Genitouri nary Therapy trazodone 50 mg tablet 2024-09 00:00: 00 Yes [id number] 1 tablet BEDTIME 1 tablet BEDTIME (route: oral) Med Classific ation: Central Nervous System Agents Xanax 0.5 mg tablet 2024-09 00:00: 00 Yes [id number] 1 tablet EVERY 6 HOURS 1 tablet [...] SCIC, AND/OR DC.] Future Scheduled Test HOME [facility] MAY ACCEPT ORDERS FROM THE [...] BLOCKAGE/LEAKAGE, HEAVY SEDIMENT. 1 - 3 PRN ALF VISITS FOR CATHETER CHANGE(S) AND/OR TROUBLESHOOTING. [code = SKILLED NURSE TO INSTRUCT PATIENT/CAREGIVER AND PERFORM CARE AND MANAGEMENT OF INDWELLING URINARY CATHETER. INDWELLING CATHETER INSERTION WITH 16 FR CATHETER WITH 10 ML BALLOON VIA STERILE TECHNIQUE, CHANGE Q 4 WEEKS AND PRN FOR LEAKING OR MALFUNCTIONING CATHETER. IRRIGATE URINARY CATHETER WITH 30-60CC NORMAL SALINE PRN BLOCKAGE/LEAKAGE, HEAVY SEDIMENT. 1 - 3 PRN ALF VISITS FOR CATHETER CHANGE(S) AND/OR TROUBLESHOOTING.] Future [...] MAINTAIN SITUATIONAL AWARENESS AND WILL NOTIFY CLINICAL LATHE TENDER AND PHYSICIAN/PROVIDER WITH ANY CHANGE IN CONDITION. [code = SKILLED NURSE TO PERFORM ENVIRONMENTAL SAFETY RISK ASSESSMENT AND FALL RISK ASSESSMENT AND PROVIDE INSTRUCTION TO IMPLEMENT ENVIRONMENTAL SAFETY AND FALL PREVENTION STRATEGIES THROUGHOUT THE CERTIFICATION PERIOD. SKILLED NURSE WILL MAINTAIN SITUATIONAL AWARENESS AND WILL NOTIFY CLINICAL LATHE TENDER AND PHYSICIAN/PROVIDER WITH ANY CHANGE IN CONDITION.] [...] CARE WILL BE ESTABLISHED THAT MEETS PATIENT'S ALF NEEDS AND INCLUDES PATIENT GOAL FOR HOME [...] Encounter Type Admission Type Attending [facility] Care Department Encounter ID Discharge Date Discharge Status Discharge Condition Discharge Reason Percent Goals Met 2025-07-22 00:00:00 2025-09-19 00:00:00 Outpatient READMISSIO N [facility] [id number] 22.58
--- OUTSIDE RECORDS SUMMARY | 2025-09-18 18:00 | XMS_ITS | Clinical Summary ---
Author Organization Unknown Care Team Providers Care Hvac/R Instructor Name Role Phone MICHELLE GARRISON, CARMEN Unavailable Unavailable WINDY RAUSCH, MELISSA Unavailable Unavailable Payers Payer Name Policy Type Policy Number Effective Date Expira tion Date [facility] OPTUM PROGRAM - PDGM Problems [...] 09-23 00:00: 00 ATHSCL HEART DISEASE OF [place] CORONARY ARTERY W/O ANG PCTRS Active [...] OF NICOTINE DEPENDENCE Active 09-23 00:00: 00 RETIREMENT (CURRENT) USE OF ANTITHROMBOT ICS/ANTIPLAT ELETS Active 09-23 00:00: 00 RETIREMENT (CURRENT) USE OF OPIATE ANALGESIC Active 09-23 [...] 06-03 00:00: 00 07-20 23:59 :00 No [id number] 1 tablet EVERY 6 HOURS 1 tablet EVERY 6 HOURS (route: oral) Med Classific ation: Central Nervous System Agents atorvastati n 80 mg tablet 06-03 00:00: 00 07-20 23:59 :00 No [id number] 1 tablet DAILY 1 tablet DAILY (route: oral) Med Classific ation: Cardiovas cular Therapy Agents B-Complex tablet 06-03 00:00: 00 07-20 23:59 :00 No [id number] 1 tablet DAILY 1 tablet DAILY (route: oral) Med Classific ation: Electroly te Balance-N utritiona l Products benzonatate 200 mg capsule 06-03 00:00: 00 07-20 23:59 :00 No [id number] 1 capsule 3 TIMES DAILY 1 capsule 3 TIMES DAILY (route: oral) Med Classific ation: Respirato ry Therapy Agents clopidogrel 75 mg tablet 06-03 00:00: 00 07-20 23:59 :00 No [id number] 1 tablet DAILY 1 tablet DAILY (route: oral) Med Classific ation: Hematolog ical Agents ferrous gluconate 324 mg (37.5 mg iron) tablet 06-03 00:00: 00 07-20 23:59 :00 No [id number] 1 tablet DAILY 1 tablet DAILY (route: oral) Med Classific ation: Electroly te Balance-N utritiona l Products folic acid 1 mg tablet 06-03 00:00: 00 07-20 23:59 :00 No [id number] 1 tablet DAILY 1 tablet DAILY (route: oral) Med Classific ation: Electroly te Balance-N utritiona l Products furosemide 40 mg tablet 06-03 00:00: 00 07-20 23:59 :00 No [id number] 1 tablet DAILY 1 tablet DAILY (route: oral) Med Classific ation: Cardiovas cular Therapy Agents hydrocodone 5 mg-acetamin ophen 325 mg tablet 06-03 00:00: 00 07-20 23:59 :00 No [id number] 1 tablet EVERY 4 HOURS 1 tablet EVERY 4 HOURS (route: oral) Med Classific ation: Analgesic , Anti-infl ammatory or Antipyret ic ipratropium 0.5 mg-albutero l 3 mg (2.5 mg base)/3 mL nebulizatio n soln 06-03 00:00: 00 07-20 23:59 :00 No [id number] 1 mL EVERY 6 HOURS 1 mL EVERY 6 HOURS (route: inhalation ) Med Classific ation: Respirato ry Therapy Agents Lidoderm 5 % topical patch 06-03 00:00: 00 07-20 23:59 :00 No [id number] 1 adhesiv e patch, medicat ed DIRECTED 1 adhesive patch, medicated DIRECTED (route: topical) Med Classific ation: Dermatolo gical Mucinex 600 mg tablet, extended release 06-03 00:00: 00 07-20 23:59 :00 No [id number] 2 tablet 2 TIMES DAILY 2 tablet 2 TIMES DAILY (route: oral) Med Classific ation: Respirato ry Therapy Agents naloxone 4 mg/actuatio n nasal spray 06-03 00:00: 00 07-20 23:59 :00 No [id number] Per instruc tions NEEDED Per instructio ns NEEDED (route: nasal) Med Classific ation: Antidotes and other Reversal Agents ondansetron HCl 8 mg tablet 06-03 00:00: 00 07-20 23:59 :00 No [id number] 1 tablet EVERY 6 HOURS 1 tablet EVERY 6 HOURS (route: oral) Med Classific ation: Gastroint estinal Therapy Agents tamsulosin 0.4 mg capsule 06-03 00:00: 00 07-20 23:59 :00 No [id number] 2 capsule DAILY 2 capsule DAILY (route: oral) Med Classific ation: Genitouri nary Therapy Thera-M 9 mg iron-400 mcg tablet 06-03 00:00: 00 07-20 23:59 :00 No [id number] 1 tablet DAILY 1 tablet DAILY (route: oral) Med Classific ation: Electroly te Balance-N utritiona l Products thiamine HCl (vitamin B1) 100 mg tablet 06-03 00:00: 00 07-20 23:59 :00 No [id number] 1 tablet DAILY 1 tablet DAILY (route: oral) Med Classific ation: Electroly te Balance-N utritiona l Products Trelegy Ellipta 100 mcg-62.5 mcg-25 mcg powder for inhalation 06-03 00:00: 00 07-20 23:59 :00 No [id number] 1 inhalat ion DAILY 1 inhalation DAILY (route: inhalation ) Med Classific ation: Respirato ry Therapy Agents Vitamin D3 25 mcg (1,000 unit) tablet 06-03 00:00: 00 07-20 23:59 :00 No [id number] 1 tablet DAILY 1 tablet DAILY (route: oral) Med Classific ation: Electroly te Balance-N utritiona l Products oxygen gas for inhalation 06-07 00:00: 00 07-20 23:59 :00 No [id number] 2 Liter O2 - CONTINUOUS 2 Liter O2 - CONTINUOUS (route: inhalation ) Med Classific ation: Medical Supplies and Durable Medical Equipment (DME) aluminum-ma g hydroxide-s imethicone 200 mg-200 mg-20 mg/5 mL oral susp 2024-09 00:00: 00 Yes [id number] 15 mL EVERY 6 HOURS 15 mL EVERY 6 HOURS (route: oral) Med Classific ation: Gastroint estinal Therapy Agents atorvastati n 20 mg tablet 2024-09 00:00: 00 Yes [id number] 1 tablet BEDTIME 1 tablet BEDTIME (route: oral) Med Classific ation: Cardiovas cular Therapy Agents clopidogrel 75 mg tablet 2024-09 00:00: 00 Yes [id number] 1 tablet DAILY 1 tablet DAILY (route: oral) Med Classific ation: Hematolog ical Agents furosemide 40 mg tablet 2024-09 00:00: 00 Yes [id number] 1 tablet DAILY 1 tablet DAILY (route: oral) Med Classific ation: Cardiovas cular Therapy Agents hydrocodone 5 mg-acetamin ophen 325 mg tablet 2024-09 00:00: 00 Yes [id number] 1 tablet 2 TIMES DAILY 1 tablet 2 TIMES DAILY (route: oral) Med Classific ation: Analgesic , Anti-infl ammatory or Antipyret ic ipratropium 0.5 mg-albutero l 3 mg (2.5 mg base)/3 mL nebulizatio n soln 2024-09 00:00: 00 Yes [id number] 3 mL EVERY 4 HOURS 3 mL EVERY 4 HOURS (route: inhalation ) Med Classific ation: Respirato ry Therapy Agents levofloxaci n 750 mg tablet 2024-09 00:00: 00 07-31 23:59 :00 No [id number] 1 tablet DAILY 1 tablet DAILY (route: oral) Med Classific ation: Anti-Infe ctive Agents LIDOCAINE PAIN RELIEF 5% 2024-09 00:00: 00 Yes [id number] 1 patch NEEDED 1 patch A S NEEDED (route: TOPICALLY) Med Classific ation: ANALGESIC S mecobalamin (vitamin B12) 5,000 mcg disintegrat ing tablet 2024-09 00:00: 00 Yes [id number] 1 tablet DAILY 1 tablet DAILY (route: oral) Med Classific ation: Electroly te Balance-N utritiona l Products mirtazapine 7.5 mg tablet 2024-09 00:00: 00 Yes [id number] 1 tablet BEDTIME 1 tablet BEDTIME (route: oral) Med Classific ation: Central Nervous System Agents Mucinex 1,200 mg tablet, extended release 2024-09 00:00: 00 Yes [id number] 1 tablet 2 TIMES DAILY 1 tablet 2 TIMES DAILY (route: oral) Med Classific ation: Respirato ry Therapy Agents prednisone 20 mg tablet 2024-09 00:00: 00 07-24 23:59 :00 No [id number] 2 tablet DAILY 2 tablet DAILY (route: oral) Med Classific ation: Endocrine tamsulosin 0.4 mg capsule 2024-09 00:00: 00 Yes [id number] 1 capsule BEDTIME 1 capsule BEDTIME (route: oral) Med Classific ation: Genitouri nary Therapy trazodone 50 mg tablet 2024-09 00:00: 00 Yes [id number] 1 tablet BEDTIME 1 tablet BEDTIME (route: oral) Med Classific ation: Central Nervous System Agents Xanax 0.5 mg tablet 2024-09 00:00: 00 Yes [id number] 1 tablet EVERY 6 HOURS 1 tablet [...] SCIC, AND/OR DC.] Future Scheduled Test HOME [facility] MAY ACCEPT ORDERS FROM THE FOLLOWING [...] BLOCKAGE/LEAKAGE, HEAVY SEDIMENT. 1 - 3 PRN LONG TERM VISITS FOR CATHETER CHANGE(S) AND/OR TROUBLESHOOTING. [code = SKILLED NURSE TO INSTRUCT PATIENT/CAREGIVER AND PERFORM CARE AND MANAGEMENT OF INDWELLING URINARY CATHETER. INDWELLING CATHETER INSERTION WITH 16 FR CATHETER WITH 10 ML BALLOON VIA STERILE TECHNIQUE, CHANGE Q 4 WEEKS AND PRN FOR LEAKING OR MALFUNCTIONING CATHETER. IRRIGATE URINARY CATHETER WITH 30-60CC NORMAL SALINE PRN BLOCKAGE/LEAKAGE, HEAVY SEDIMENT. 1 - 3 PRN LONG TERM VISITS FOR CATHETER CHANGE(S) AND/OR TROUBLESHOOTING.] Future [...] MAINTAIN SITUATIONAL AWARENESS AND WILL NOTIFY CLINICAL EDITOR MANAGING DIRECTOR AND PHYSICIAN/PROVIDER WITH ANY CHANGE IN CONDITION. [code = SKILLED NURSE TO PERFORM ENVIRONMENTAL SAFETY RISK ASSESSMENT AND FALL RISK ASSESSMENT AND PROVIDE INSTRUCTION TO IMPLEMENT ENVIRONMENTAL SAFETY AND FALL PREVENTION STRATEGIES THROUGHOUT THE CERTIFICATION PERIOD. SKILLED NURSE WILL MAINTAIN SITUATIONAL AWARENESS AND WILL NOTIFY CLINICAL EDITOR MANAGING DIRECTOR AND PHYSICIAN/PROVIDER WITH ANY CHANGE IN CONDITION.] [...] CARE WILL BE ESTABLISHED THAT MEETS PATIENT'S LONG TERM NEEDS AND INCLUDES PATIENT GOAL FOR HOME [...] Date/Time Encounter Type Admission Type Attending [facility] Care Department Encounter ID Discharge Date Discharge Status Discharge Condition Discharge Reason Percent Goals Met 2025-07-22 00:00:00 2025-09-19 00:00:00 Outpatient READMISSIO N [facility] [id number] 22.58
--- OUTSIDE RECORDS SUMMARY | 2025-09-18 18:00 | XMS_ITS | Clinical Summary ---
Author Organization Unknown Care Team Providers Care Fisher Purse Seine Name Role Phone MICHELLE GARRISON, CARMEN Unavailable Unavailable WINDY RAUSCH, MELSISA Unavailable Unavailable Payers Payer Name Policy Type Policy Number Effective Date Expira tion Date [facility] OPTUM PROGRAM - PDGM Problems [...] 09-23 00:00: 00 ATHSCL HEART DISEASE OF [place] CORONARY ARTERY W/O ANG PCTRS Active 09-23 [...] OF NICOTINE DEPENDENCE Active 09-23 00:00: 00 [facility] (CURRENT) USE OF ANTITHROMBOT ICS/ANTIPLAT ELETS Active 09-23 00:00: 00 [facility] (CURRENT) USE OF OPIATE ANALGESIC Active 09-23 [...] 06-03 00:00: 00 07-20 23:59 :00 No [id number] 1 tablet EVERY 6 HOURS 1 tablet EVERY 6 HOURS (route: oral) Med Classific ation: Central Nervous System Agents atorvastati n 80 mg tablet 06-03 00:00: 00 07-20 23:59 :00 No [id number] 1 tablet DAILY 1 tablet DAILY (route: oral) Med Classific ation: Cardiovas cular Therapy Agents B-Complex tablet 06-03 00:00: 00 07-20 23:59 :00 No [id number] 1 tablet DAILY 1 tablet DAILY (route: oral) Med Classific ation: Electroly te Balance-N utritiona l Products benzonatate 200 mg capsule 06-03 00:00: 00 07-20 23:59 :00 No [id number] 1 capsule 3 TIMES DAILY 1 capsule 3 TIMES DAILY (route: oral) Med Classific ation: Respirato ry Therapy Agents clopidogrel 75 mg tablet 06-03 00:00: 00 07-20 23:59 :00 No [id number] 1 tablet DAILY 1 tablet DAILY (route: oral) Med Classific ation: Hematolog ical Agents ferrous gluconate 324 mg (37.5 mg iron) tablet 06-03 00:00: 00 07-20 23:59 :00 No [id number] 1 tablet DAILY 1 tablet DAILY (route: oral) Med Classific ation: Electroly te Balance-N utritiona l Products folic acid 1 mg tablet 06-03 00:00: 00 07-20 23:59 :00 No [id number] 1 tablet DAILY 1 tablet DAILY (route: oral) Med Classific ation: Electroly te Balance-N utritiona l Products furosemide 40 mg tablet 06-03 00:00: 00 07-20 23:59 :00 No [id number] 1 tablet DAILY 1 tablet DAILY (route: oral) Med Classific ation: Cardiovas cular Therapy Agents hydrocodone 5 mg-acetamin ophen 325 mg tablet 06-03 00:00: 00 07-20 23:59 :00 No [id number] 1 tablet EVERY 4 HOURS 1 tablet EVERY 4 HOURS (route: oral) Med Classific ation: Analgesic , Anti-infl ammatory or Antipyret ic ipratropium 0.5 mg-albutero l 3 mg (2.5 mg base)/3 mL nebulizatio n soln 06-03 00:00: 00 07-20 23:59 :00 No [id number] 1 mL EVERY 6 HOURS 1 mL EVERY 6 HOURS (route: inhalation ) Med Classific ation: Respirato ry Therapy Agents Lidoderm 5 % topical patch 06-03 00:00: 00 07-20 23:59 :00 No [id number] 1 adhesiv e patch, medicat ed DIRECTED 1 adhesive patch, medicated DIRECTED (route: topical) Med Classific ation: Dermatolo gical Mucinex 600 mg tablet, extended release 06-03 00:00: 00 07-20 23:59 :00 No [id number] 2 tablet 2 TIMES DAILY 2 tablet 2 TIMES DAILY (route: oral) Med Classific ation: Respirato ry Therapy Agents naloxone 4 mg/actuatio n nasal spray 06-03 00:00: 00 07-20 23:59 :00 No [id number] Per instruc tions NEEDED Per instructio ns NEEDED (route: nasal) Med Classific ation: Antidotes and other Reversal Agents ondansetron HCl 8 mg tablet 06-03 00:00: 00 07-20 23:59 :00 No [id number] 1 tablet EVERY 6 HOURS 1 tablet EVERY 6 HOURS (route: oral) Med Classific ation: Gastroint estinal Therapy Agents tamsulosin 0.4 mg capsule 06-03 00:00: 00 07-20 23:59 :00 No [id number] 2 capsule DAILY 2 capsule DAILY (route: oral) Med Classific ation: Genitouri nary Therapy Thera-M 9 mg iron-400 mcg tablet 06-03 00:00: 00 07-20 23:59 :00 No [id number] 1 tablet DAILY 1 tablet DAILY (route: oral) Med Classific ation: Electroly te Balance-N utritiona l Products thiamine HCl (vitamin B1) 100 mg tablet 06-03 00:00: 00 07-20 23:59 :00 No [id number] 1 tablet DAILY 1 tablet DAILY (route: oral) Med Classific ation: Electroly te Balance-N utritiona l Products Trelegy Ellipta 100 mcg-62.5 mcg-25 mcg powder for inhalation 06-03 00:00: 00 07-20 23:59 :00 No [id number] 1 inhalat ion DAILY 1 inhalation DAILY (route: inhalation ) Med Classific ation: Respirato ry Therapy Agents Vitamin D3 25 mcg (1,000 unit) tablet 06-03 00:00: 00 07-20 23:59 :00 No [id number] 1 tablet DAILY 1 tablet DAILY (route: oral) Med Classific ation: Electroly te Balance-N utritiona l Products oxygen gas for inhalation 06-07 00:00: 00 07-20 23:59 :00 No [id number] 2 Liter O2 - CONTINUOUS 2 Liter O2 - CONTINUOUS (route: inhalation ) Med Classific ation: Medical Supplies and Durable Medical Equipment (DME) aluminum-ma g hydroxide-s imethicone 200 mg-200 mg-20 mg/5 mL oral susp 2024-09 00:00: 00 Yes [id number] 15 mL EVERY 6 HOURS 15 mL EVERY 6 HOURS (route: oral) Med Classific ation: Gastroint estinal Therapy Agents atorvastati n 20 mg tablet 2024-09 00:00: 00 Yes [id number] 1 tablet BEDTIME 1 tablet BEDTIME (route: oral) Med Classific ation: Cardiovas cular Therapy Agents clopidogrel 75 mg tablet 2024-09 00:00: 00 Yes [id number] 1 tablet DAILY 1 tablet DAILY (route: oral) Med Classific ation: Hematolog ical Agents furosemide 40 mg tablet 2024-09 00:00: 00 Yes [id number] 1 tablet DAILY 1 tablet DAILY (route: oral) Med Classific ation: Cardiovas cular Therapy Agents hydrocodone 5 mg-acetamin ophen 325 mg tablet 2024-09 00:00: 00 Yes [id number] 1 tablet 2 TIMES DAILY 1 tablet 2 TIMES DAILY (route: oral) Med Classific ation: Analgesic , Anti-infl ammatory or Antipyret ic ipratropium 0.5 mg-albutero l 3 mg (2.5 mg base)/3 mL nebulizatio n soln 2024-09 00:00: 00 Yes [id number] 3 mL EVERY 4 HOURS 3 mL EVERY 4 HOURS (route: inhalation ) Med Classific ation: Respirato ry Therapy Agents levofloxaci n 750 mg tablet 2024-09 00:00: 00 07-31 23:59 :00 No [id number] 1 tablet DAILY 1 tablet DAILY (route: oral) Med Classific ation: Anti-Infe ctive Agents LIDOCAINE PAIN RELIEF 5% 2024-09 00:00: 00 Yes [id number] 1 patch NEEDED 1 patch A S NEEDED (route: TOPICALLY) Med Classific ation: ANALGESIC S mecobalamin (vitamin B12) 5,000 mcg disintegrat ing tablet 2024-09 00:00: 00 Yes [id number] 1 tablet DAILY 1 tablet DAILY (route: oral) Med Classific ation: Electroly te Balance-N utritiona l Products mirtazapine 7.5 mg tablet 2024-09 00:00: 00 Yes [id number] 1 tablet BEDTIME 1 tablet BEDTIME (route: oral) Med Classific ation: Central Nervous System Agents Mucinex 1,200 mg tablet, extended release 2024-09 00:00: 00 Yes [id number] 1 tablet 2 TIMES DAILY 1 tablet 2 TIMES DAILY (route: oral) Med Classific ation: Respirato ry Therapy Agents prednisone 20 mg tablet 2024-09 00:00: 00 07-24 23:59 :00 No [id number] 2 tablet DAILY 2 tablet DAILY (route: oral) Med Classific ation: Endocrine tamsulosin 0.4 mg capsule 2024-09 00:00: 00 Yes [id number] 1 capsule BEDTIME 1 capsule BEDTIME (route: oral) Med Classific ation: Genitouri nary Therapy trazodone 50 mg tablet 2024-09 00:00: 00 Yes [id number] 1 tablet BEDTIME 1 tablet BEDTIME (route: oral) Med Classific ation: Central Nervous System Agents Xanax 0.5 mg tablet 2024-09 00:00: 00 Yes [id number] 1 tablet EVERY 6 HOURS 1 tablet [...] SCIC, AND/OR DC.] Future Scheduled Test [facility] MAY ACCEPT ORDERS FROM [...] MAINTAIN SITUATIONAL AWARENESS AND WILL NOTIFY CLINICAL CHEMICAL ENGINEERING TECHNOLOGIST AND PHYSICIAN/PROVIDER WITH ANY CHANGE IN CONDITION. [code = SKILLED NURSE TO PERFORM ENVIRONMENTAL SAFETY RISK ASSESSMENT AND FALL RISK ASSESSMENT AND PROVIDE INSTRUCTION TO IMPLEMENT ENVIRONMENTAL SAFETY AND FALL PREVENTION STRATEGIES THROUGHOUT THE CERTIFICATION PERIOD. SKILLED NURSE WILL MAINTAIN SITUATIONAL AWARENESS AND WILL NOTIFY CLINICAL CHEMICAL ENGINEERING TECHNOLOGIST AND PHYSICIAN/PROVIDER WITH ANY CHANGE IN CONDITION.] [...] Outpatient READMISSIO N [facility] [id number] 22.58
--- OUTSIDE RECORDS SUMMARY | 2025-09-18 18:00 | XMS_ITS | Clinical Summary ---
Author Organization Unknown Care Team Providers Care Right Of Way Supervisor Name Role Phone MICHELLE GARRISON, CARMEN Unavailable Unavailable WINDY RAUSCH, MELISSA Unavailable Unavailable Payers Payer Name Policy Type Policy Number Effective Date Expira tion Date [facility] OPTUM PROGRAM - PDGM Problems [...] 09-23 00:00: 00 ATHSCL HEART DISEASE OF [place] CORONARY ARTERY W/O ANG PCTRS Active 09-23 [...] OF NICOTINE DEPENDENCE Active 09-23 00:00: 00 [facility] (CURRENT) USE OF ANTITHROMBOT ICS/ANTIPLAT ELETS Active 09-23 00:00: 00 [facility] (CURRENT) USE OF OPIATE ANALGESIC Active 09-23 [...] 06-03 00:00: 00 07-20 23:59 :00 No [id number] 1 tablet EVERY 6 HOURS 1 tablet EVERY 6 HOURS (route: oral) Med Classific ation: Central Nervous System Agents atorvastati n 80 mg tablet 06-03 00:00: 00 07-20 23:59 :00 No [id number] 1 tablet DAILY 1 tablet DAILY (route: oral) Med Classific ation: Cardiovas cular Therapy Agents B-Complex tablet 06-03 00:00: 00 07-20 23:59 :00 No [id number] 1 tablet DAILY 1 tablet DAILY (route: oral) Med Classific ation: Electroly te Balance-N utritiona l Products benzonatate 200 mg capsule 06-03 00:00: 00 07-20 23:59 :00 No [id number] 1 capsule 3 TIMES DAILY 1 capsule 3 TIMES DAILY (route: oral) Med Classific ation: Respirato ry Therapy Agents clopidogrel 75 mg tablet 06-03 00:00: 00 07-20 23:59 :00 No [id number] 1 tablet DAILY 1 tablet DAILY (route: oral) Med Classific ation: Hematolog ical Agents ferrous gluconate 324 mg (37.5 mg iron) tablet 06-03 00:00: 00 07-20 23:59 :00 No [id number] 1 tablet DAILY 1 tablet DAILY (route: oral) Med Classific ation: Electroly te Balance-N utritiona l Products folic acid 1 mg tablet 06-03 00:00: 00 07-20 23:59 :00 No [id number] 1 tablet DAILY 1 tablet DAILY (route: oral) Med Classific ation: Electroly te Balance-N utritiona l Products furosemide 40 mg tablet 06-03 00:00: 00 07-20 23:59 :00 No [id number] 1 tablet DAILY 1 tablet DAILY (route: oral) Med Classific ation: Cardiovas cular Therapy Agents hydrocodone 5 mg-acetamin ophen 325 mg tablet 06-03 00:00: 00 07-20 23:59 :00 No [id number] 1 tablet EVERY 4 HOURS 1 tablet EVERY 4 HOURS (route: oral) Med Classific ation: Analgesic , Anti-infl ammatory or Antipyret ic ipratropium 0.5 mg-albutero l 3 mg (2.5 mg base)/3 mL nebulizatio n soln 06-03 00:00: 00 07-20 23:59 :00 No [id number] 1 mL EVERY 6 HOURS 1 mL EVERY 6 HOURS (route: inhalation ) Med Classific ation: Respirato ry Therapy Agents Lidoderm 5 % topical patch 06-03 00:00: 00 07-20 23:59 :00 No [id number] 1 adhesiv e patch, medicat ed DIRECTED 1 adhesive patch, medicated DIRECTED (route: topical) Med Classific ation: Dermatolo gical Mucinex 600 mg tablet, extended release 06-03 00:00: 00 07-20 23:59 :00 No [id number] 2 tablet 2 TIMES DAILY 2 tablet 2 TIMES DAILY (route: oral) Med Classific ation: Respirato ry Therapy Agents naloxone 4 mg/actuatio n nasal spray 06-03 00:00: 00 07-20 23:59 :00 No [id number] Per instruc tions NEEDED Per instructio ns NEEDED (route: nasal) Med Classific ation: Antidotes and other Reversal Agents ondansetron HCl 8 mg tablet 06-03 00:00: 00 07-20 23:59 :00 No [id number] 1 tablet EVERY 6 HOURS 1 tablet EVERY 6 HOURS (route: oral) Med Classific ation: Gastroint estinal Therapy Agents tamsulosin 0.4 mg capsule 06-03 00:00: 00 07-20 23:59 :00 No [id number] 2 capsule DAILY 2 capsule DAILY (route: oral) Med Classific ation: Genitouri nary Therapy Thera-M 9 mg iron-400 mcg tablet 06-03 00:00: 00 07-20 23:59 :00 No [id number] 1 tablet DAILY 1 tablet DAILY (route: oral) Med Classific ation: Electroly te Balance-N utritiona l Products thiamine HCl (vitamin B1) 100 mg tablet 06-03 00:00: 00 07-20 23:59 :00 No [id number] 1 tablet DAILY 1 tablet DAILY (route: oral) Med Classific ation: Electroly te Balance-N utritiona l Products Trelegy Ellipta 100 mcg-62.5 mcg-25 mcg powder for inhalation 06-03 00:00: 00 07-20 23:59 :00 No [id number] 1 inhalat ion DAILY 1 inhalation DAILY (route: inhalation ) Med Classific ation: Respirato ry Therapy Agents Vitamin D3 25 mcg (1,000 unit) tablet 06-03 00:00: 00 07-20 23:59 :00 No [id number] 1 tablet DAILY 1 tablet DAILY (route: oral) Med Classific ation: Electroly te Balance-N utritiona l Products oxygen gas for inhalation 06-07 00:00: 00 07-20 23:59 :00 No [id number] 2 Liter O2 - CONTINUOUS 2 Liter O2 - CONTINUOUS (route: inhalation ) Med Classific ation: Medical Supplies and Durable Medical Equipment (DME) aluminum-ma g hydroxide-s imethicone 200 mg-200 mg-20 mg/5 mL oral susp 2024-09 00:00: 00 Yes [id number] 15 mL EVERY 6 HOURS 15 mL EVERY 6 HOURS (route: oral) Med Classific ation: Gastroint estinal Therapy Agents atorvastati n 20 mg tablet 2024-09 00:00: 00 Yes [id number] 1 tablet BEDTIME 1 tablet BEDTIME (route: oral) Med Classific ation: Cardiovas cular Therapy Agents clopidogrel 75 mg tablet 2024-09 00:00: 00 Yes [id number] 1 tablet DAILY 1 tablet DAILY (route: oral) Med Classific ation: Hematolog ical Agents furosemide 40 mg tablet 2024-09 00:00: 00 Yes [id number] 1 tablet DAILY 1 tablet DAILY (route: oral) Med Classific ation: Cardiovas cular Therapy Agents hydrocodone 5 mg-acetamin ophen 325 mg tablet 2024-09 00:00: 00 Yes [id number] 1 tablet 2 TIMES DAILY 1 tablet 2 TIMES DAILY (route: oral) Med Classific ation: Analgesic , Anti-infl ammatory or Antipyret ic ipratropium 0.5 mg-albutero l 3 mg (2.5 mg base)/3 mL nebulizatio n soln 2024-09 00:00: 00 Yes [id number] 3 mL EVERY 4 HOURS 3 mL EVERY 4 HOURS (route: inhalation ) Med Classific ation: Respirato ry Therapy Agents levofloxaci n 750 mg tablet 2024-09 00:00: 00 07-31 23:59 :00 No [id number] 1 tablet DAILY 1 tablet DAILY (route: oral) Med Classific ation: Anti-Infe ctive Agents LIDOCAINE PAIN RELIEF 5% 2024-09 00:00: 00 Yes [id number] 1 patch NEEDED 1 patch A S NEEDED (route: TOPICALLY) Med Classific ation: ANALGESIC S mecobalamin (vitamin B12) 5,000 mcg disintegrat ing tablet 2024-09 00:00: 00 Yes [id number] 1 tablet DAILY 1 tablet DAILY (route: oral) Med Classific ation: Electroly te Balance-N utritiona l Products mirtazapine 7.5 mg tablet 2024-09 00:00: 00 Yes [id number] 1 tablet BEDTIME 1 tablet BEDTIME (route: oral) Med Classific ation: Central Nervous System Agents Mucinex 1,200 mg tablet, extended release 2024-09 00:00: 00 Yes [id number] 1 tablet 2 TIMES DAILY 1 tablet 2 TIMES DAILY (route: oral) Med Classific ation: Respirato ry Therapy Agents prednisone 20 mg tablet 2024-09 00:00: 00 07-24 23:59 :00 No [id number] 2 tablet DAILY 2 tablet DAILY (route: oral) Med Classific ation: Endocrine tamsulosin 0.4 mg capsule 2024-09 00:00: 00 Yes [id number] 1 capsule BEDTIME 1 capsule BEDTIME (route: oral) Med Classific ation: Genitouri nary Therapy trazodone 50 mg tablet 2024-09 00:00: 00 Yes [id number] 1 tablet BEDTIME 1 tablet BEDTIME (route: oral) Med Classific ation: Central Nervous System Agents Xanax 0.5 mg tablet 2024-09 00:00: 00 Yes [id number] 1 tablet EVERY 6 HOURS 1 tablet [...] SCIC, AND/OR DC.] Future Scheduled Test [facility] MAY ACCEPT ORDERS FROM THE [...] BLOCKAGE/LEAKAGE, HEAVY SEDIMENT. 1 - 3 PRN FPC VISITS FOR CATHETER CHANGE(S) AND/OR TROUBLESHOOTING. [code = SKILLED NURSE TO INSTRUCT PATIENT/CAREGIVER AND PERFORM CARE AND MANAGEMENT OF INDWELLING URINARY CATHETER. INDWELLING CATHETER INSERTION WITH 16 FR CATHETER WITH 10 ML BALLOON VIA STERILE TECHNIQUE, CHANGE Q 4 WEEKS AND PRN FOR LEAKING OR MALFUNCTIONING CATHETER. IRRIGATE URINARY CATHETER WITH 30-60CC NORMAL SALINE PRN BLOCKAGE/LEAKAGE, HEAVY SEDIMENT. 1 - 3 PRN [facility]PC VISITS FOR CATHETER CHANGE(S) AND/OR TROUBLESHOOTING.] Future [...] MAINTAIN SITUATIONAL AWARENESS AND WILL NOTIFY CLINICAL ENGINEERING OPERATOR AND PHYSICIAN/PROVIDER WITH ANY CHANGE IN CONDITION. [code = SKILLED NURSE TO PERFORM ENVIRONMENTAL SAFETY RISK ASSESSMENT AND FALL RISK ASSESSMENT AND PROVIDE INSTRUCTION TO IMPLEMENT ENVIRONMENTAL SAFETY AND FALL PREVENTION STRATEGIES THROUGHOUT THE CERTIFICATION PERIOD. SKILLED NURSE WILL MAINTAIN SITUATIONAL AWARENESS AND WILL NOTIFY CLINICAL ENGINEERING OPERATOR AND PHYSICIAN/PROVIDER WITH ANY CHANGE IN [...] CARE WILL BE ESTABLISHED THAT MEETS PATIENT'S FPC NEEDS AND INCLUDES PATIENT GOAL FOR HOME [...] End Date/Time Encounter Type Admission Type [facility] Department Encounter ID Discharge Date Discharge Status Discharge Condition Discharge Reason Percent Goals Met 2025-07-22 00:00:00 2025-09-19 00:00:00 Outpatient READMISSIO N [facility] [id number] 22.58
--- OUTSIDE RECORDS SUMMARY | 2025-09-18 18:00 | XMS_ITS | Clinical Summary ---
Author Organization Unknown Care Team Providers Care Chemist Water Purification Name Role Phone MICHELLE GARRISON, CARMEN Unavailable Unavailable WINDY RAUSCH, MELISSA Unavailable Unavailable Payers Payer Name Policy Type Policy Number Effective Date Expira tion Date [facility] OPTUM PROGRAM - PDGM Problems Condition [...] 09-23 00:00: 00 ATHSCL HEART DISEASE OF [place] CORONARY ARTERY W/O ANG PCTRS Active 09-23 [...] OF NICOTINE DEPENDENCE Active 09-23 00:00: 00 [facility] (CURRENT) USE OF ANTITHROMBOT ICS/ANTIPLAT ELETS Active 09-23 00:00: 00 [facility]ENITENTI[facility] (CURRENT) USE OF OPIATE ANALGESIC Active 09-23 [...] 06-03 00:00: 00 07-20 23:59 :00 No [id number] 1 tablet EVERY 6 HOURS 1 tablet EVERY 6 HOURS (route: oral) Med Classific ation: Central Nervous System Agents atorvastati n 80 mg tablet 06-03 00:00: 00 07-20 23:59 :00 No [id number] 1 tablet DAILY 1 tablet DAILY (route: oral) Med Classific ation: Cardiovas cular Therapy Agents B-Complex tablet 06-03 00:00: 00 07-20 23:59 :00 No [id number] 1 tablet DAILY 1 tablet DAILY (route: oral) Med Classific ation: Electroly te Balance-N utritiona l Products benzonatate 200 mg capsule 06-03 00:00: 00 07-20 23:59 :00 No [id number] 1 capsule 3 TIMES DAILY 1 capsule 3 TIMES DAILY (route: oral) Med Classific ation: Respirato ry Therapy Agents clopidogrel 75 mg tablet 06-03 00:00: 00 07-20 23:59 :00 No [id number] 1 tablet DAILY 1 tablet DAILY (route: oral) Med Classific ation: Hematolog ical Agents ferrous gluconate 324 mg (37.5 mg iron) tablet 06-03 00:00: 00 07-20 23:59 :00 No [id number] 1 tablet DAILY 1 tablet DAILY (route: oral) Med Classific ation: Electroly te Balance-N utritiona l Products folic acid 1 mg tablet 06-03 00:00: 00 07-20 23:59 :00 No [id number] 1 tablet DAILY 1 tablet DAILY (route: oral) Med Classific ation: Electroly te Balance-N utritiona l Products furosemide 40 mg tablet 06-03 00:00: 00 07-20 23:59 :00 No [id number] 1 tablet DAILY 1 tablet DAILY (route: oral) Med Classific ation: Cardiovas cular Therapy Agents hydrocodone 5 mg-acetamin ophen 325 mg tablet 06-03 00:00: 00 07-20 23:59 :00 No [id number] 1 tablet EVERY 4 HOURS 1 tablet EVERY 4 HOURS (route: oral) Med Classific ation: Analgesic , Anti-infl ammatory or Antipyret ic ipratropium 0.5 mg-albutero l 3 mg (2.5 mg base)/3 mL nebulizatio n soln 06-03 00:00: 00 07-20 23:59 :00 No [id number] 1 mL EVERY 6 HOURS 1 mL EVERY 6 HOURS (route: inhalation ) Med Classific ation: Respirato ry Therapy Agents Lidoderm 5 % topical patch 06-03 00:00: 00 07-20 23:59 :00 No [id number] 1 adhesiv e patch, medicat ed DIRECTED 1 adhesive patch, medicated DIRECTED (route: topical) Med Classific ation: Dermatolo gical Mucinex 600 mg tablet, extended release 06-03 00:00: 00 07-20 23:59 :00 No [id number] 2 tablet 2 TIMES DAILY 2 tablet 2 TIMES DAILY (route: oral) Med Classific ation: Respirato ry Therapy Agents naloxone 4 mg/actuatio n nasal spray 06-03 00:00: 00 07-20 23:59 :00 No [id number] Per instruc tions NEEDED Per instructio ns NEEDED (route: nasal) Med Classific ation: Antidotes and other Reversal Agents ondansetron HCl 8 mg tablet 06-03 00:00: 00 07-20 23:59 :00 No [id number] 1 tablet EVERY 6 HOURS 1 tablet EVERY 6 HOURS (route: oral) Med Classific ation: Gastroint estinal Therapy Agents tamsulosin 0.4 mg capsule 06-03 00:00: 00 07-20 23:59 :00 No [id number] 2 capsule DAILY 2 capsule DAILY (route: oral) Med Classific ation: Genitouri nary Therapy Thera-M 9 mg iron-400 mcg tablet 06-03 00:00: 00 07-20 23:59 :00 No [id number] 1 tablet DAILY 1 tablet DAILY (route: oral) Med Classific ation: Electroly te Balance-N utritiona l Products thiamine HCl (vitamin B1) 100 mg tablet 06-03 00:00: 00 07-20 23:59 :00 No [id number] 1 tablet DAILY 1 tablet DAILY (route: oral) Med Classific ation: Electroly te Balance-N utritiona l Products Trelegy Ellipta 100 mcg-62.5 mcg-25 mcg powder for inhalation 06-03 00:00: 00 07-20 23:59 :00 No [id number] 1 inhalat ion DAILY 1 inhalation DAILY (route: inhalation ) Med Classific ation: Respirato ry Therapy Agents Vitamin D3 25 mcg (1,000 unit) tablet 06-03 00:00: 00 07-20 23:59 :00 No [id number] 1 tablet DAILY 1 tablet DAILY (route: oral) Med Classific ation: Electroly te Balance-N utritiona l Products oxygen gas for inhalation 06-07 00:00: 00 07-20 23:59 :00 No [id number] 2 Liter O2 - CONTINUOUS 2 Liter O2 - CONTINUOUS (route: inhalation ) Med Classific ation: Medical Supplies and Durable Medical Equipment (DME) aluminum-ma g hydroxide-s imethicone 200 mg-200 mg-20 mg/5 mL oral susp 2024-09 00:00: 00 Yes [id number] 15 mL EVERY 6 HOURS 15 mL EVERY 6 HOURS (route: oral) Med Classific ation: Gastroint estinal Therapy Agents atorvastati n 20 mg tablet 2024-09 00:00: 00 Yes [id number] 1 tablet BEDTIME 1 tablet BEDTIME (route: oral) Med Classific ation: Cardiovas cular Therapy Agents clopidogrel 75 mg tablet 2024-09 00:00: 00 Yes [id number] 1 tablet DAILY 1 tablet DAILY (route: oral) Med Classific ation: Hematolog ical Agents furosemide 40 mg tablet 2024-09 00:00: 00 Yes [id number] 1 tablet DAILY 1 tablet DAILY (route: oral) Med Classific ation: Cardiovas cular Therapy Agents hydrocodone 5 mg-acetamin ophen 325 mg tablet 2024-09 00:00: 00 Yes [id number] 1 tablet 2 TIMES DAILY 1 tablet 2 TIMES DAILY (route: oral) Med Classific ation: Analgesic , Anti-infl ammatory or Antipyret ic ipratropium 0.5 mg-albutero l 3 mg (2.5 mg base)/3 mL nebulizatio n soln 2024-09 00:00: 00 Yes [id number] 3 mL EVERY 4 HOURS 3 mL EVERY 4 HOURS (route: inhalation ) Med Classific ation: Respirato ry Therapy Agents levofloxaci n 750 mg tablet 2024-09 00:00: 00 07-31 23:59 :00 No [id number] 1 tablet DAILY 1 tablet DAILY (route: oral) Med Classific ation: Anti-Infe ctive Agents LIDOCAINE PAIN RELIEF 5% 2024-09 00:00: 00 Yes [id number] 1 patch NEEDED 1 patch A S NEEDED (route: TOPICALLY) Med Classific ation: ANALGESIC S mecobalamin (vitamin B12) 5,000 mcg disintegrat ing tablet 2024-09 00:00: 00 Yes [id number] 1 tablet DAILY 1 tablet DAILY (route: oral) Med Classific ation: Electroly te Balance-N utritiona l Products mirtazapine 7.5 mg tablet 2024-09 00:00: 00 Yes [id number] 1 tablet BEDTIME 1 tablet BEDTIME (route: oral) Med Classific ation: Central Nervous System Agents Mucinex 1,200 mg tablet, extended release 2024-09 00:00: 00 Yes [id number] 1 tablet 2 TIMES DAILY 1 tablet 2 TIMES DAILY (route: oral) Med Classific ation: Respirato ry Therapy Agents prednisone 20 mg tablet 2024-09 00:00: 00 07-24 23:59 :00 No [id number] 2 tablet DAILY 2 tablet DAILY (route: oral) Med Classific ation: Endocrine tamsulosin 0.4 mg capsule 2024-09 00:00: 00 Yes [id number] 1 capsule BEDTIME 1 capsule BEDTIME (route: oral) Med Classific ation: Genitouri nary Therapy trazodone 50 mg tablet 2024-09 00:00: 00 Yes [id number] 1 tablet BEDTIME 1 tablet BEDTIME (route: oral) Med Classific ation: Central Nervous System Agents Xanax 0.5 mg tablet 2024-09 00:00: 00 Yes [id number] 1 tablet EVERY 6 HOURS 1 tablet [...] SCIC, AND/OR DC.] Future Scheduled Test HOME [facility] MAY ACCEPT ORDERS FROM THE [...] MAINTAIN SITUATIONAL AWARENESS AND WILL NOTIFY CLINICAL LABORATORY OPERATIONS COORDINATOR AND PHYSICIAN/PROVIDER WITH ANY CHANGE IN CONDITION. [code = SKILLED NURSE TO PERFORM ENVIRONMENTAL SAFETY RISK ASSESSMENT AND FALL RISK ASSESSMENT AND PROVIDE INSTRUCTION TO IMPLEMENT ENVIRONMENTAL SAFETY AND FALL PREVENTION STRATEGIES THROUGHOUT THE CERTIFICATION PERIOD. SKILLED NURSE WILL MAINTAIN SITUATIONAL AWARENESS AND WILL NOTIFY CLINICAL LABORATORY OPERATIONS COORDINATOR AND PHYSICIAN/PROVIDER WITH ANY CHANGE IN CONDITION.] [...] End Date/Time Encounter Type Admission Type Attending [facility] Care Department Encounter ID Discharge Date Discharge Status Discharge Condition Discharge Reason Percent Goals Met 2025-07-22 00:00:00 2025-09-19 00:00:00 Outpatient READMISSIO N [facility] [id number] 22.58
--- OUTSIDE RECORDS SUMMARY | 2025-09-18 18:00 | XMS_ITS | Clinical Summary ---
Author Organization Unknown Care Team Providers Care Logistics Project Manager Name Role Phone MICHELLE GARRISON, CARMEN Unavailable Unavailable WINDY RAUSCH, MELISSA Unavailable Unavailable Payers Payer Name Policy Type Policy Number Effective Date Expira tion Date [facility] OPTUM PROGRAM - PDGM Problems Condition Name [...] 09-23 00:00: 00 ATHSCL HEART DISEASE OF [place] CORONARY ARTERY W/O ANG PCTRS Active 09-23 [...] OF NICOTINE DEPENDENCE Active 09-23 00:00: 00 [facility] (CURRENT) USE OF ANTITHROMBOT ICS/ANTIPLAT ELETS Active 09-23 00:00: 00 [facility] (CURRENT) USE OF OPIATE ANALGESIC Active 09-23 [...] 06-03 00:00: 00 07-20 23:59 :00 No [id number] 1 tablet EVERY 6 HOURS 1 tablet EVERY 6 HOURS (route: oral) Med Classific ation: Central Nervous System Agents atorvastati n 80 mg tablet 06-03 00:00: 00 07-20 23:59 :00 No [id number] 1 tablet DAILY 1 tablet DAILY (route: oral) Med Classific ation: Cardiovas cular Therapy Agents B-Complex tablet 06-03 00:00: 00 07-20 23:59 :00 No [id number] 1 tablet DAILY 1 tablet DAILY (route: oral) Med Classific ation: Electroly te Balance-N utritiona l Products benzonatate 200 mg capsule 06-03 00:00: 00 07-20 23:59 :00 No [id number] 1 capsule 3 TIMES DAILY 1 capsule 3 TIMES DAILY (route: oral) Med Classific ation: Respirato ry Therapy Agents clopidogrel 75 mg tablet 06-03 00:00: 00 07-20 23:59 :00 No [id number] 1 tablet DAILY 1 tablet DAILY (route: oral) Med Classific ation: Hematolog ical Agents ferrous gluconate 324 mg (37.5 mg iron) tablet 06-03 00:00: 00 07-20 23:59 :00 No [id number] 1 tablet DAILY 1 tablet DAILY (route: oral) Med Classific ation: Electroly te Balance-N utritiona l Products folic acid 1 mg tablet 06-03 00:00: 00 07-20 23:59 :00 No [id number] 1 tablet DAILY 1 tablet DAILY (route: oral) Med Classific ation: Electroly te Balance-N utritiona l Products furosemide 40 mg tablet 06-03 00:00: 00 07-20 23:59 :00 No [id number] 1 tablet DAILY 1 tablet DAILY (route: oral) Med Classific ation: Cardiovas cular Therapy Agents hydrocodone 5 mg-acetamin ophen 325 mg tablet 06-03 00:00: 00 07-20 23:59 :00 No [id number] 1 tablet EVERY 4 HOURS 1 tablet EVERY 4 HOURS (route: oral) Med Classific ation: Analgesic , Anti-infl ammatory or Antipyret ic ipratropium 0.5 mg-albutero l 3 mg (2.5 mg base)/3 mL nebulizatio n soln 06-03 00:00: 00 07-20 23:59 :00 No [id number] 1 mL EVERY 6 HOURS 1 mL EVERY 6 HOURS (route: inhalation ) Med Classific ation: Respirato ry Therapy Agents Lidoderm 5 % topical patch 06-03 00:00: 00 07-20 23:59 :00 No [id number] 1 adhesiv e patch, medicat ed DIRECTED 1 adhesive patch, medicated DIRECTED (route: topical) Med Classific ation: Dermatolo gical Mucinex 600 mg tablet, extended release 06-03 00:00: 00 07-20 23:59 :00 No [id number] 2 tablet 2 TIMES DAILY 2 tablet 2 TIMES DAILY (route: oral) Med Classific ation: Respirato ry Therapy Agents naloxone 4 mg/actuatio n nasal spray 06-03 00:00: 00 07-20 23:59 :00 No [id number] Per instruc tions NEEDED Per instructio ns NEEDED (route: nasal) Med Classific ation: Antidotes and other Reversal Agents ondansetron HCl 8 mg tablet 06-03 00:00: 00 07-20 23:59 :00 No [id number] 1 tablet EVERY 6 HOURS 1 tablet EVERY 6 HOURS (route: oral) Med Classific ation: Gastroint estinal Therapy Agents tamsulosin 0.4 mg capsule 06-03 00:00: 00 07-20 23:59 :00 No [id number] 2 capsule DAILY 2 capsule DAILY (route: oral) Med Classific ation: Genitouri nary Therapy Thera-M 9 mg iron-400 mcg tablet 06-03 00:00: 00 07-20 23:59 :00 No [id number] 1 tablet DAILY 1 tablet DAILY (route: oral) Med Classific ation: Electroly te Balance-N utritiona l Products thiamine HCl (vitamin B1) 100 mg tablet 06-03 00:00: 00 07-20 23:59 :00 No [id number] 1 tablet DAILY 1 tablet DAILY (route: oral) Med Classific ation: Electroly te Balance-N utritiona l Products Trelegy Ellipta 100 mcg-62.5 mcg-25 mcg powder for inhalation 06-03 00:00: 00 07-20 23:59 :00 No [id number] 1 inhalat ion DAILY 1 inhalation DAILY (route: inhalation ) Med Classific ation: Respirato ry Therapy Agents Vitamin D3 25 mcg (1,000 unit) tablet 06-03 00:00: 00 07-20 23:59 :00 No [id number] 1 tablet DAILY 1 tablet DAILY (route: oral) Med Classific ation: Electroly te Balance-N utritiona l Products oxygen gas for inhalation 06-07 00:00: 00 07-20 23:59 :00 No [id number] 2 Liter O2 - CONTINUOUS 2 Liter O2 - CONTINUOUS (route: inhalation ) Med Classific ation: Medical Supplies and Durable Medical Equipment (DME) aluminum-ma g hydroxide-s imethicone 200 mg-200 mg-20 mg/5 mL oral susp 2024-09 00:00: 00 Yes [id number] 15 mL EVERY 6 HOURS 15 mL EVERY 6 HOURS (route: oral) Med Classific ation: Gastroint estinal Therapy Agents atorvastati n 20 mg tablet 2024-09 00:00: 00 Yes [id number] 1 tablet BEDTIME 1 tablet BEDTIME (route: oral) Med Classific ation: Cardiovas cular Therapy Agents clopidogrel 75 mg tablet 2024-09 00:00: 00 Yes [id number] 1 tablet DAILY 1 tablet DAILY (route: oral) Med Classific ation: Hematolog ical Agents furosemide 40 mg tablet 2024-09 00:00: 00 Yes [id number] 1 tablet DAILY 1 tablet DAILY (route: oral) Med Classific ation: Cardiovas cular Therapy Agents hydrocodone 5 mg-acetamin ophen 325 mg tablet 2024-09 00:00: 00 Yes [id number] 1 tablet 2 TIMES DAILY 1 tablet 2 TIMES DAILY (route: oral) Med Classific ation: Analgesic , Anti-infl ammatory or Antipyret ic ipratropium 0.5 mg-albutero l 3 mg (2.5 mg base)/3 mL nebulizatio n soln 2024-09 00:00: 00 Yes [id number] 3 mL EVERY 4 HOURS 3 mL EVERY 4 HOURS (route: inhalation ) Med Classific ation: Respirato ry Therapy Agents levofloxaci n 750 mg tablet 2024-09 00:00: 00 07-31 23:59 :00 No [id number] 1 tablet DAILY 1 tablet DAILY (route: oral) Med Classific ation: Anti-Infe ctive Agents LIDOCAINE PAIN RELIEF 5% 2024-09 00:00: 00 Yes [id number] 1 patch NEEDED 1 patch A S NEEDED (route: TOPICALLY) Med Classific ation: ANALGESIC S mecobalamin (vitamin B12) 5,000 mcg disintegrat ing tablet 2024-09 00:00: 00 Yes [id number] 1 tablet DAILY 1 tablet DAILY (route: oral) Med Classific ation: Electroly te Balance-N utritiona l Products mirtazapine 7.5 mg tablet 2024-09 00:00: 00 Yes [id number] 1 tablet BEDTIME 1 tablet BEDTIME (route: oral) Med Classific ation: Central Nervous System Agents Mucinex 1,200 mg tablet, extended release 2024-09 00:00: 00 Yes [id number] 1 tablet 2 TIMES DAILY 1 tablet 2 TIMES DAILY (route: oral) Med Classific ation: Respirato ry Therapy Agents prednisone 20 mg tablet 2024-09 00:00: 00 07-24 23:59 :00 No [id number] 2 tablet DAILY 2 tablet DAILY (route: oral) Med Classific ation: Endocrine tamsulosin 0.4 mg capsule 2024-09 00:00: 00 Yes [id number] 1 capsule BEDTIME 1 capsule BEDTIME (route: oral) Med Classific ation: Genitouri nary Therapy trazodone 50 mg tablet 2024-09 00:00: 00 Yes [id number] 1 tablet BEDTIME 1 tablet BEDTIME (route: oral) Med Classific ation: Central Nervous System Agents Xanax 0.5 mg tablet 2024-09 00:00: 00 Yes [id number] 1 tablet EVERY 6 HOURS 1 tablet [...] SCIC, AND/OR DC.] Future Scheduled Test HOME [facility] MAY ACCEPT ORDERS FROM [...] BLOCKAGE/LEAKAGE, HEAVY SEDIMENT. 1 - 3 PRN ASSISTED VISITS FOR CATHETER CHANGE(S) AND/OR TROUBLESHOOTING. [code = SKILLED NURSE TO INSTRUCT PATIENT/CAREGIVER AND PERFORM CARE AND MANAGEMENT OF INDWELLING URINARY CATHETER. INDWELLING CATHETER INSERTION WITH 16 FR CATHETER WITH 10 ML BALLOON VIA STERILE TECHNIQUE, CHANGE Q 4 WEEKS AND PRN FOR LEAKING OR MALFUNCTIONING CATHETER. IRRIGATE URINARY CATHETER WITH 30-60CC NORMAL SALINE PRN BLOCKAGE/LEAKAGE, HEAVY SEDIMENT. 1 - 3 PRN ASSISTED VISITS FOR CATHETER CHANGE(S) AND/OR TROUBLESHOOTING.] Future [...] MAINTAIN SITUATIONAL AWARENESS AND WILL NOTIFY CLINICAL MEDICAL LABORATORY SCIENTIST AND PHYSICIAN/PROVIDER WITH ANY CHANGE IN CONDITION. [code = SKILLED NURSE TO PERFORM ENVIRONMENTAL SAFETY RISK ASSESSMENT AND FALL RISK ASSESSMENT AND PROVIDE INSTRUCTION TO IMPLEMENT ENVIRONMENTAL SAFETY AND FALL PREVENTION STRATEGIES THROUGHOUT THE CERTIFICATION PERIOD. SKILLED NURSE WILL MAINTAIN SITUATIONAL AWARENESS AND WILL NOTIFY CLINICAL MEDICAL LABORATORY SCIENTIST AND PHYSICIAN/PROVIDER WITH ANY CHANGE IN CONDITION.] [...] CARE WILL BE ESTABLISHED THAT MEETS PATIENT'S ASSISTED NEEDS AND INCLUDES PATIENT GOAL FOR HOME [...] Outpatient READMISSIO N [facility] [id number] 22.58
--- OUTSIDE RECORDS SUMMARY | 2025-09-18 18:00 | XMS_ITS | Clinical Summary ---
Author Organization Unknown Care Team Providers Care Burlap Roll Coverer Name Role Phone MICHELLE GARRISON, CARMEN Unavailable Unavailable WINDY RAUSCH, MELISSA Unavailable Unavailable Payers Payer Name Policy Type Policy Number Effective Date Expira tion Date [facility] OPTUM PROGRAM - PDGM Problems Condition Name [...] OF NICOTINE DEPENDENCE Active 09-23 00:00: 00 [facility] (CURRENT) USE OF ANTITHROMBOT ICS/ANTIPLAT ELETS Active 09-23 00:00: 00 [facility] (CURRENT) USE OF OPIATE ANALGESIC Active 09-23 [...] 06-03 00:00: 00 07-20 23:59 :00 No [id number] 1 tablet EVERY 6 HOURS 1 tablet EVERY 6 HOURS (route: oral) Med Classific ation: Central Nervous System Agents atorvastati n 80 mg tablet 06-03 00:00: 00 07-20 23:59 :00 No [id number] 1 tablet DAILY 1 tablet DAILY (route: oral) Med Classific ation: Cardiovas cular Therapy Agents B-Complex tablet 06-03 00:00: 00 07-20 23:59 :00 No [id number] 1 tablet DAILY 1 tablet DAILY (route: oral) Med Classific ation: Electroly te Balance-N utritiona l Products benzonatate 200 mg capsule 06-03 00:00: 00 07-20 23:59 :00 No [id number] 1 capsule 3 TIMES DAILY 1 capsule 3 TIMES DAILY (route: oral) Med Classific ation: Respirato ry Therapy Agents clopidogrel 75 mg tablet 06-03 00:00: 00 07-20 23:59 :00 No [id number] 1 tablet DAILY 1 tablet DAILY (route: oral) Med Classific ation: Hematolog ical Agents ferrous gluconate 324 mg (37.5 mg iron) tablet 06-03 00:00: 00 07-20 23:59 :00 No [id number] 1 tablet DAILY 1 tablet DAILY (route: oral) Med Classific ation: Electroly te Balance-N utritiona l Products folic acid 1 mg tablet 06-03 00:00: 00 07-20 23:59 :00 No [id number] 1 tablet DAILY 1 tablet DAILY (route: oral) Med Classific ation: Electroly te Balance-N utritiona l Products furosemide 40 mg tablet 06-03 00:00: 00 07-20 23:59 :00 No [id number] 1 tablet DAILY 1 tablet DAILY (route: oral) Med Classific ation: Cardiovas cular Therapy Agents hydrocodone 5 mg-acetamin ophen 325 mg tablet 06-03 00:00: 00 07-20 23:59 :00 No [id number] 1 tablet EVERY 4 HOURS 1 tablet EVERY 4 HOURS (route: oral) Med Classific ation: Analgesic , Anti-infl ammatory or Antipyret ic ipratropium 0.5 mg-albutero l 3 mg (2.5 mg base)/3 mL nebulizatio n soln 06-03 00:00: 00 07-20 23:59 :00 No [id number] 1 mL EVERY 6 HOURS 1 mL EVERY 6 HOURS (route: inhalation ) Med Classific ation: Respirato ry Therapy Agents Lidoderm 5 % topical patch 06-03 00:00: 00 07-20 23:59 :00 No [id number] 1 adhesiv e patch, medicat ed DIRECTED 1 adhesive patch, medicated DIRECTED (route: topical) Med Classific ation: Dermatolo gical Mucinex 600 mg tablet, extended release 06-03 00:00: 00 07-20 23:59 :00 No [id number] 2 tablet 2 TIMES DAILY 2 tablet 2 TIMES DAILY (route: oral) Med Classific ation: Respirato ry Therapy Agents naloxone 4 mg/actuatio n nasal spray 06-03 00:00: 00 07-20 23:59 :00 No [id number] Per instruc tions NEEDED Per instructio ns NEEDED (route: nasal) Med Classific ation: Antidotes and other Reversal Agents ondansetron HCl 8 mg tablet 06-03 00:00: 00 07-20 23:59 :00 No [id number] 1 tablet EVERY 6 HOURS 1 tablet EVERY 6 HOURS (route: oral) Med Classific ation: Gastroint estinal Therapy Agents tamsulosin 0.4 mg capsule 06-03 00:00: 00 07-20 23:59 :00 No [id number] 2 capsule DAILY 2 capsule DAILY (route: oral) Med Classific ation: Genitouri nary Therapy Thera-M 9 mg iron-400 mcg tablet 06-03 00:00: 00 07-20 23:59 :00 No [id number] 1 tablet DAILY 1 tablet DAILY (route: oral) Med Classific ation: Electroly te Balance-N utritiona l Products thiamine HCl (vitamin B1) 100 mg tablet 06-03 00:00: 00 07-20 23:59 :00 No [id number] 1 tablet DAILY 1 tablet DAILY (route: oral) Med Classific ation: Electroly te Balance-N utritiona l Products Trelegy Ellipta 100 mcg-62.5 mcg-25 mcg powder for inhalation 06-03 00:00: 00 07-20 23:59 :00 No [id number] 1 inhalat ion DAILY 1 inhalation DAILY (route: inhalation ) Med Classific ation: Respirato ry Therapy Agents Vitamin D3 25 mcg (1,000 unit) tablet 06-03 00:00: 00 07-20 23:59 :00 No [id number] 1 tablet DAILY 1 tablet DAILY (route: oral) Med Classific ation: Electroly te Balance-N utritiona l Products oxygen gas for inhalation 06-07 00:00: 00 07-20 23:59 :00 No [id number] 2 Liter O2 - CONTINUOUS 2 Liter O2 - CONTINUOUS (route: inhalation ) Med Classific ation: Medical Supplies and Durable Medical Equipment (DME) aluminum-ma g hydroxide-s imethicone 200 mg-200 mg-20 mg/5 mL oral susp 2024-09 00:00: 00 Yes [id number] 15 mL EVERY 6 HOURS 15 mL EVERY 6 HOURS (route: oral) Med Classific ation: Gastroint estinal Therapy Agents atorvastati n 20 mg tablet 2024-09 00:00: 00 Yes [id number] 1 tablet BEDTIME 1 tablet BEDTIME (route: oral) Med Classific ation: Cardiovas cular Therapy Agents clopidogrel 75 mg tablet 2024-09 00:00: 00 Yes [id number] 1 tablet DAILY 1 tablet DAILY (route: oral) Med Classific ation: Hematolog ical Agents furosemide 40 mg tablet 2024-09 00:00: 00 Yes [id number] 1 tablet DAILY 1 tablet DAILY (route: oral) Med Classific ation: Cardiovas cular Therapy Agents hydrocodone 5 mg-acetamin ophen 325 mg tablet 2024-09 00:00: 00 Yes [id number] 1 tablet 2 TIMES DAILY 1 tablet 2 TIMES DAILY (route: oral) Med Classific ation: Analgesic , Anti-infl ammatory or Antipyret ic ipratropium 0.5 mg-albutero l 3 mg (2.5 mg base)/3 mL nebulizatio n soln 2024-09 00:00: 00 Yes [id number] 3 mL EVERY 4 HOURS 3 mL EVERY 4 HOURS (route: inhalation ) Med Classific ation: Respirato ry Therapy Agents levofloxaci n 750 mg tablet 2024-09 00:00: 00 07-31 23:59 :00 No [id number] 1 tablet DAILY 1 tablet DAILY (route: oral) Med Classific ation: Anti-Infe ctive Agents LIDOCAINE PAIN RELIEF 5% 2024-09 00:00: 00 Yes [id number] 1 patch NEEDED 1 patch A S NEEDED (route: TOPICALLY) Med Classific ation: ANALGESIC S mecobalamin (vitamin B12) 5,000 mcg disintegrat ing tablet 2024-09 00:00: 00 Yes [id number] 1 tablet DAILY 1 tablet DAILY (route: oral) Med Classific ation: Electroly te Balance-N utritiona l Products mirtazapine 7.5 mg tablet 2024-09 00:00: 00 Yes [id number] 1 tablet BEDTIME 1 tablet BEDTIME (route: oral) Med Classific ation: Central Nervous System Agents Mucinex 1,200 mg tablet, extended release 2024-09 00:00: 00 Yes [id number] 1 tablet 2 TIMES DAILY 1 tablet 2 TIMES DAILY (route: oral) Med Classific ation: Respirato ry Therapy Agents prednisone 20 mg tablet 2024-09 00:00: 00 07-24 23:59 :00 No [id number] 2 tablet DAILY 2 tablet DAILY (route: oral) Med Classific ation: Endocrine tamsulosin 0.4 mg capsule 2024-09 00:00: 00 Yes [id number] 1 capsule BEDTIME 1 capsule BEDTIME (route: oral) Med Classific ation: Genitouri nary Therapy trazodone 50 mg tablet 2024-09 00:00: 00 Yes [id number] 1 tablet BEDTIME 1 tablet BEDTIME (route: oral) Med Classific ation: Central Nervous System Agents Xanax 0.5 mg tablet 2024-09 00:00: 00 Yes [id number] 1 tablet EVERY 6 HOURS 1 tablet [...] DC.] Future Scheduled Test HOME [facility] MAY ACCEPT ORDERS FROM THE FOLLOWING [...] BLOCKAGE/LEAKAGE, HEAVY SEDIMENT. 1 - 3 PRN CUSTODIAL VISITS FOR CATHETER CHANGE(S) AND/OR TROUBLESHOOTING. [code = SKILLED NURSE TO INSTRUCT PATIENT/CAREGIVER AND PERFORM CARE AND MANAGEMENT OF INDWELLING URINARY CATHETER. INDWELLING CATHETER INSERTION WITH 16 FR CATHETER WITH 10 ML BALLOON VIA STERILE TECHNIQUE, CHANGE Q 4 WEEKS AND PRN FOR LEAKING OR MALFUNCTIONING CATHETER. IRRIGATE URINARY CATHETER WITH 30-60CC NORMAL SALINE PRN BLOCKAGE/LEAKAGE, HEAVY SEDIMENT. 1 - 3 PRN CUSTODIAL VISITS FOR CATHETER CHANGE(S) AND/OR TROUBLESHOOTING.] Future [...] MAINTAIN SITUATIONAL AWARENESS AND WILL NOTIFY CLINICAL HVAC FIELD SERVICE TECHNICIAN AND PHYSICIAN/PROVIDER WITH ANY CHANGE IN CONDITION. [code = SKILLED NURSE TO PERFORM ENVIRONMENTAL SAFETY RISK ASSESSMENT AND FALL RISK ASSESSMENT AND PROVIDE INSTRUCTION TO IMPLEMENT ENVIRONMENTAL SAFETY AND FALL PREVENTION STRATEGIES THROUGHOUT THE CERTIFICATION PERIOD. SKILLED NURSE WILL MAINTAIN SITUATIONAL AWARENESS AND WILL NOTIFY CLINICAL HVAC FIELD SERVICE TECHNICIAN AND PHYSICIAN/PROVIDER WITH ANY CHANGE IN CONDITION.] [...] CARE WILL BE ESTABLISHED THAT MEETS PATIENT'S CUSTODIAL NEEDS AND INCLUDES PATIENT GOAL FOR HOME [...] Date/Time Encounter Type Admission Type Attending [facility] Care Department Encounter ID Discharge Date Discharge Status Discharge Condition Discharge Reason Percent Goals Met 2025-07-22 00:00:00 2025-09-19 00:00:00 Outpatient READMISSIO N [facility] [id number] 22.58
--- OUTSIDE RECORDS SUMMARY | 2025-09-18 18:00 | XMS_ITS | Clinical Summary ---
Author Organization Unknown Care Team Providers Care Chemist Inorganic Name Role Phone MICHELLE GARRISON, CARMEN Unavailable Unavailable WINDY RAUSCH, MELISSA Unavailable Unavailable Payers Payer Name Policy Type Policy Number Effective Date Expira tion Date [facility] OPTUM PROGRAM - PDGM Problems Condition [...] 09-23 00:00: 00 ATHSCL HEART DISEASE OF [place] CORONARY ARTERY W/O ANG PCTRS Active 09-23 [...] OF NICOTINE DEPENDENCE Active 09-23 00:00: 00 [facility] (CURRENT) USE OF ANTITHROMBOT ICS/ANTIPLAT ELETS Active 09-23 00:00: 00 [facility] (CURRENT) USE OF OPIATE ANALGESIC Active [...] 06-03 00:00: 00 07-20 23:59 :00 No [id number] 1 tablet EVERY 6 HOURS 1 tablet EVERY 6 HOURS (route: oral) Med Classific ation: Central Nervous System Agents atorvastati n 80 mg tablet 06-03 00:00: 00 07-20 23:59 :00 No [id number] 1 tablet DAILY 1 tablet DAILY (route: oral) Med Classific ation: Cardiovas cular Therapy Agents B-Complex tablet 06-03 00:00: 00 07-20 23:59 :00 No [id number] 1 tablet DAILY 1 tablet DAILY (route: oral) Med Classific ation: Electroly te Balance-N utritiona l Products benzonatate 200 mg capsule 06-03 00:00: 00 07-20 23:59 :00 No [id number] 1 capsule 3 TIMES DAILY 1 capsule 3 TIMES DAILY (route: oral) Med Classific ation: Respirato ry Therapy Agents clopidogrel 75 mg tablet 06-03 00:00: 00 07-20 23:59 :00 No [id number] 1 tablet DAILY 1 tablet DAILY (route: oral) Med Classific ation: Hematolog ical Agents ferrous gluconate 324 mg (37.5 mg iron) tablet 06-03 00:00: 00 07-20 23:59 :00 No [id number] 1 tablet DAILY 1 tablet DAILY (route: oral) Med Classific ation: Electroly te Balance-N utritiona l Products folic acid 1 mg tablet 06-03 00:00: 00 07-20 23:59 :00 No [id number] 1 tablet DAILY 1 tablet DAILY (route: oral) Med Classific ation: Electroly te Balance-N utritiona l Products furosemide 40 mg tablet 06-03 00:00: 00 07-20 23:59 :00 No [id number] 1 tablet DAILY 1 tablet DAILY (route: oral) Med Classific ation: Cardiovas cular Therapy Agents hydrocodone 5 mg-acetamin ophen 325 mg tablet 06-03 00:00: 00 07-20 23:59 :00 No [id number] 1 tablet EVERY 4 HOURS 1 tablet EVERY 4 HOURS (route: oral) Med Classific ation: Analgesic , Anti-infl ammatory or Antipyret ic ipratropium 0.5 mg-albutero l 3 mg (2.5 mg base)/3 mL nebulizatio n soln 06-03 00:00: 00 07-20 23:59 :00 No [id number] 1 mL EVERY 6 HOURS 1 mL EVERY 6 HOURS (route: inhalation ) Med Classific ation: Respirato ry Therapy Agents Lidoderm 5 % topical patch 06-03 00:00: 00 07-20 23:59 :00 No [id number] 1 adhesiv e patch, medicat ed DIRECTED 1 adhesive patch, medicated DIRECTED (route: topical) Med Classific ation: Dermatolo gical Mucinex 600 mg tablet, extended release 06-03 00:00: 00 07-20 23:59 :00 No [id number] 2 tablet 2 TIMES DAILY 2 tablet 2 TIMES DAILY (route: oral) Med Classific ation: Respirato ry Therapy Agents naloxone 4 mg/actuatio n nasal spray 06-03 00:00: 00 07-20 23:59 :00 No [id number] Per instruc tions NEEDED Per instructio ns NEEDED (route: nasal) Med Classific ation: Antidotes and other Reversal Agents ondansetron HCl 8 mg tablet 06-03 00:00: 00 07-20 23:59 :00 No [id number] 1 tablet EVERY 6 HOURS 1 tablet EVERY 6 HOURS (route: oral) Med Classific ation: Gastroint estinal Therapy Agents tamsulosin 0.4 mg capsule 06-03 00:00: 00 07-20 23:59 :00 No [id number] 2 capsule DAILY 2 capsule DAILY (route: oral) Med Classific ation: Genitouri nary Therapy Thera-M 9 mg iron-400 mcg tablet 06-03 00:00: 00 07-20 23:59 :00 No [id number] 1 tablet DAILY 1 tablet DAILY (route: oral) Med Classific ation: Electroly te Balance-N utritiona l Products thiamine HCl (vitamin B1) 100 mg tablet 06-03 00:00: 00 07-20 23:59 :00 No [id number] 1 tablet DAILY 1 tablet DAILY (route: oral) Med Classific ation: Electroly te Balance-N utritiona l Products Trelegy Ellipta 100 mcg-62.5 mcg-25 mcg powder for inhalation 06-03 00:00: 00 07-20 23:59 :00 No [id number] 1 inhalat ion DAILY 1 inhalation DAILY (route: inhalation ) Med Classific ation: Respirato ry Therapy Agents Vitamin D3 25 mcg (1,000 unit) tablet 06-03 00:00: 00 07-20 23:59 :00 No [id number] 1 tablet DAILY 1 tablet DAILY (route: oral) Med Classific ation: Electroly te Balance-N utritiona l Products oxygen gas for inhalation 06-07 00:00: 00 07-20 23:59 :00 No [id number] 2 Liter O2 - CONTINUOUS 2 Liter O2 - CONTINUOUS (route: inhalation ) Med Classific ation: Medical Supplies and Durable Medical Equipment (DME) aluminum-ma g hydroxide-s imethicone 200 mg-200 mg-20 mg/5 mL oral susp 2024-09 00:00: 00 Yes [id number] 15 mL EVERY 6 HOURS 15 mL EVERY 6 HOURS (route: oral) Med Classific ation: Gastroint estinal Therapy Agents atorvastati n 20 mg tablet 2024-09 00:00: 00 Yes [id number] 1 tablet BEDTIME 1 tablet BEDTIME (route: oral) Med Classific ation: Cardiovas cular Therapy Agents clopidogrel 75 mg tablet 2024-09 00:00: 00 Yes [id number] 1 tablet DAILY 1 tablet DAILY (route: oral) Med Classific ation: Hematolog ical Agents furosemide 40 mg tablet 2024-09 00:00: 00 Yes [id number] 1 tablet DAILY 1 tablet DAILY (route: oral) Med Classific ation: Cardiovas cular Therapy Agents hydrocodone 5 mg-acetamin ophen 325 mg tablet 2024-09 00:00: 00 Yes [id number] 1 tablet 2 TIMES DAILY 1 tablet 2 TIMES DAILY (route: oral) Med Classific ation: Analgesic , Anti-infl ammatory or Antipyret ic ipratropium 0.5 mg-albutero l 3 mg (2.5 mg base)/3 mL nebulizatio n soln 2024-09 00:00: 00 Yes [id number] 3 mL EVERY 4 HOURS 3 mL EVERY 4 HOURS (route: inhalation ) Med Classific ation: Respirato ry Therapy Agents levofloxaci n 750 mg tablet 2024-09 00:00: 00 07-31 23:59 :00 No [id number] 1 tablet DAILY 1 tablet DAILY (route: oral) Med Classific ation: Anti-Infe ctive Agents LIDOCAINE PAIN RELIEF 5% 2024-09 00:00: 00 Yes [id number] 1 patch NEEDED 1 patch A S NEEDED (route: TOPICALLY) Med Classific ation: ANALGESIC S mecobalamin (vitamin B12) 5,000 mcg disintegrat ing tablet 2024-09 00:00: 00 Yes [id number] 1 tablet DAILY 1 tablet DAILY (route: oral) Med Classific ation: Electroly te Balance-N utritiona l Products mirtazapine 7.5 mg tablet 2024-09 00:00: 00 Yes [id number] 1 tablet BEDTIME 1 tablet BEDTIME (route: oral) Med Classific ation: Central Nervous System Agents Mucinex 1,200 mg tablet, extended release 2024-09 00:00: 00 Yes [id number] 1 tablet 2 TIMES DAILY 1 tablet 2 TIMES DAILY (route: oral) Med Classific ation: Respirato ry Therapy Agents prednisone 20 mg tablet 2024-09 00:00: 00 07-24 23:59 :00 No [id number] 2 tablet DAILY 2 tablet DAILY (route: oral) Med Classific ation: Endocrine tamsulosin 0.4 mg capsule 2024-09 00:00: 00 Yes [id number] 1 capsule BEDTIME 1 capsule BEDTIME (route: oral) Med Classific ation: Genitouri nary Therapy trazodone 50 mg tablet 2024-09 00:00: 00 Yes [id number] 1 tablet BEDTIME 1 tablet BEDTIME (route: oral) Med Classific ation: Central Nervous System Agents Xanax 0.5 mg tablet 2024-09 00:00: 00 Yes [id number] 1 tablet EVERY 6 HOURS 1 tablet [...] SCIC, AND/OR DC.] Future Scheduled Test HOME [facility] MAY ACCEPT ORDERS FROM [...] MAINTAIN SITUATIONAL AWARENESS AND WILL NOTIFY CLINICAL DIRECTOR OF RADIO SERVICES AND PHYSICIAN/PROVIDER WITH ANY CHANGE IN CONDITION. [code = SKILLED NURSE TO PERFORM ENVIRONMENTAL SAFETY RISK ASSESSMENT AND FALL RISK ASSESSMENT AND PROVIDE INSTRUCTION TO IMPLEMENT ENVIRONMENTAL SAFETY AND FALL PREVENTION STRATEGIES THROUGHOUT THE CERTIFICATION PERIOD. SKILLED NURSE WILL MAINTAIN SITUATIONAL AWARENESS AND WILL NOTIFY CLINICAL DIRECTOR OF RADIO SERVICES AND PHYSICIAN/PROVIDER WITH ANY CHANGE IN CONDITION.] [...] End Date/Time Encounter Type Admission Type Attending [facility] Care Department Encounter ID Discharge Date Discharge Status Discharge Condition Discharge Reason Percent Goals Met 2025-07-22 00:00:00 2025-09-19 00:00:00 Outpatient READMISSIO N [facility] [id number] 22.58
--- OUTSIDE RECORDS SUMMARY | 2025-09-18 18:00 | XMS_ITS | Clinical Summary ---
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 Name Role Phone MICHELLE GARRISON, CARMEN Unavailable Unavailable WINDY RAUSCH, MELISSA Unavailable Unavailable Payers Payer Name Policy Type Policy Number Effective Date Expira tion Date [facility] OPTUM PROGRAM - PDGM Problems [...] 09-23 00:00: 00 ATHSCL HEART DISEASE OF [place] CORONARY ARTERY W/O ANG PCTRS Active [...] OF NICOTINE DEPENDENCE Active 09-23 00:00: 00 HALF-WAY (CURRENT) USE OF ANTITHROMBOT ICS/ANTIPLAT ELETS Active 09-23 00:00: 00 HALF-WAY (CURRENT) USE OF OPIATE ANALGESIC Active 09-23 [...] 06-03 00:00: 00 07-20 23:59 :00 No [id number] 1 tablet EVERY 6 HOURS 1 tablet EVERY 6 HOURS (route: oral) Med Classific ation: Central Nervous System Agents atorvastati n 80 mg tablet 06-03 00:00: 00 07-20 23:59 :00 No [id number] 1 tablet DAILY 1 tablet DAILY (route: oral) Med Classific ation: Cardiovas cular Therapy Agents B-Complex tablet 06-03 00:00: 00 07-20 23:59 :00 No [id number] 1 tablet DAILY 1 tablet DAILY (route: oral) Med Classific ation: Electroly te Balance-N utritiona l Products benzonatate 200 mg capsule 06-03 00:00: 00 07-20 23:59 :00 No [id number] 1 capsule 3 TIMES DAILY 1 capsule 3 TIMES DAILY (route: oral) Med Classific ation: Respirato ry Therapy Agents clopidogrel 75 mg tablet 06-03 00:00: 00 07-20 23:59 :00 No [id number] 1 tablet DAILY 1 tablet DAILY (route: oral) Med Classific ation: Hematolog ical Agents ferrous gluconate 324 mg (37.5 mg iron) tablet 06-03 00:00: 00 07-20 23:59 :00 No [id number] 1 tablet DAILY 1 tablet DAILY (route: oral) Med Classific ation: Electroly te Balance-N utritiona l Products folic acid 1 mg tablet 06-03 00:00: 00 07-20 23:59 :00 No [id number] 1 tablet DAILY 1 tablet DAILY (route: oral) Med Classific ation: Electroly te Balance-N utritiona l Products furosemide 40 mg tablet 06-03 00:00: 00 07-20 23:59 :00 No [id number] 1 tablet DAILY 1 tablet DAILY (route: oral) Med Classific ation: Cardiovas cular Therapy Agents hydrocodone 5 mg-acetamin ophen 325 mg tablet 06-03 00:00: 00 07-20 23:59 :00 No [id number] 1 tablet EVERY 4 HOURS 1 tablet EVERY 4 HOURS (route: oral) Med Classific ation: Analgesic , Anti-infl ammatory or Antipyret ic ipratropium 0.5 mg-albutero l 3 mg (2.5 mg base)/3 mL nebulizatio n soln 06-03 00:00: 00 07-20 23:59 :00 No [id number] 1 mL EVERY 6 HOURS 1 mL EVERY 6 HOURS (route: inhalation ) Med Classific ation: Respirato ry Therapy Agents Lidoderm 5 % topical patch 06-03 00:00: 00 07-20 23:59 :00 No [id number] 1 adhesiv e patch, medicat ed DIRECTED 1 adhesive patch, medicated DIRECTED (route: topical) Med Classific ation: Dermatolo gical Mucinex 600 mg tablet, extended release 06-03 00:00: 00 07-20 23:59 :00 No [id number] 2 tablet 2 TIMES DAILY 2 tablet 2 TIMES DAILY (route: oral) Med Classific ation: Respirato ry Therapy Agents naloxone 4 mg/actuatio n nasal spray 06-03 00:00: 00 07-20 23:59 :00 No [id number] Per instruc tions NEEDED Per instructio ns NEEDED (route: nasal) Med Classific ation: Antidotes and other Reversal Agents ondansetron HCl 8 mg tablet 06-03 00:00: 00 07-20 23:59 :00 No [id number] 1 tablet EVERY 6 HOURS 1 tablet EVERY 6 HOURS (route: oral) Med Classific ation: Gastroint estinal Therapy Agents tamsulosin 0.4 mg capsule 06-03 00:00: 00 07-20 23:59 :00 No [id number] 2 capsule DAILY 2 capsule DAILY (route: oral) Med Classific ation: Genitouri nary Therapy Thera-M 9 mg iron-400 mcg tablet 06-03 00:00: 00 07-20 23:59 :00 No [id number] 1 tablet DAILY 1 tablet DAILY (route: oral) Med Classific ation: Electroly te Balance-N utritiona l Products thiamine HCl (vitamin B1) 100 mg tablet 06-03 00:00: 00 07-20 23:59 :00 No [id number] 1 tablet DAILY 1 tablet DAILY (route: oral) Med Classific ation: Electroly te Balance-N utritiona l Products Trelegy Ellipta 100 mcg-62.5 mcg-25 mcg powder for inhalation 06-03 00:00: 00 07-20 23:59 :00 No [id number] 1 inhalat ion DAILY 1 inhalation DAILY (route: inhalation ) Med Classific ation: Respirato ry Therapy Agents Vitamin D3 25 mcg (1,000 unit) tablet 06-03 00:00: 00 07-20 23:59 :00 No [id number] 1 tablet DAILY 1 tablet DAILY (route: oral) Med Classific ation: Electroly te Balance-N utritiona l Products oxygen gas for inhalation 06-07 00:00: 00 07-20 23:59 :00 No [id number] 2 Liter O2 - CONTINUOUS 2 Liter O2 - CONTINUOUS (route: inhalation ) Med Classific ation: Medical Supplies and Durable Medical Equipment (DME) aluminum-ma g hydroxide-s imethicone 200 mg-200 mg-20 mg/5 mL oral susp 2024-09 00:00: 00 Yes [id number] 15 mL EVERY 6 HOURS 15 mL EVERY 6 HOURS (route: oral) Med Classific ation: Gastroint estinal Therapy Agents atorvastati n 20 mg tablet 2024-09 00:00: 00 Yes [id number] 1 tablet BEDTIME 1 tablet BEDTIME (route: oral) Med Classific ation: Cardiovas cular Therapy Agents clopidogrel 75 mg tablet 2024-09 00:00: 00 Yes [id number] 1 tablet DAILY 1 tablet DAILY (route: oral) Med Classific ation: Hematolog ical Agents furosemide 40 mg tablet 2024-09 00:00: 00 Yes [id number] 1 tablet DAILY 1 tablet DAILY (route: oral) Med Classific ation: Cardiovas cular Therapy Agents hydrocodone 5 mg-acetamin ophen 325 mg tablet 2024-09 00:00: 00 Yes [id number] 1 tablet 2 TIMES DAILY 1 tablet 2 TIMES DAILY (route: oral) Med Classific ation: Analgesic , Anti-infl ammatory or Antipyret ic ipratropium 0.5 mg-albutero l 3 mg (2.5 mg base)/3 mL nebulizatio n soln 2024-09 00:00: 00 Yes [id number] 3 mL EVERY 4 HOURS 3 mL EVERY 4 HOURS (route: inhalation ) Med Classific ation: Respirato ry Therapy Agents levofloxaci n 750 mg tablet 2024-09 00:00: 00 07-31 23:59 :00 No [id number] 1 tablet DAILY 1 tablet DAILY (route: oral) Med Classific ation: Anti-Infe ctive Agents LIDOCAINE PAIN RELIEF 5% 2024-09 00:00: 00 Yes [id number] 1 patch NEEDED 1 patch A S NEEDED (route: TOPICALLY) Med Classific ation: ANALGESIC S mecobalamin (vitamin B12) 5,000 mcg disintegrat ing tablet 2024-09 00:00: 00 Yes [id number] 1 tablet DAILY 1 tablet DAILY (route: oral) Med Classific ation: Electroly te Balance-N utritiona l Products mirtazapine 7.5 mg tablet 2024-09 00:00: 00 Yes [id number] 1 tablet BEDTIME 1 tablet BEDTIME (route: oral) Med Classific ation: Central Nervous System Agents Mucinex 1,200 mg tablet, extended release 2024-09 00:00: 00 Yes [id number] 1 tablet 2 TIMES DAILY 1 tablet 2 TIMES DAILY (route: oral) Med Classific ation: Respirato ry Therapy Agents prednisone 20 mg tablet 2024-09 00:00: 00 07-24 23:59 :00 No [id number] 2 tablet DAILY 2 tablet DAILY (route: oral) Med Classific ation: Endocrine tamsulosin 0.4 mg capsule 2024-09 00:00: 00 Yes [id number] 1 capsule BEDTIME 1 capsule BEDTIME (route: oral) Med Classific ation: Genitouri nary Therapy trazodone 50 mg tablet 2024-09 00:00: 00 Yes [id number] 1 tablet BEDTIME 1 tablet BEDTIME (route: oral) Med Classific ation: Central Nervous System Agents Xanax 0.5 mg tablet 2024-09 00:00: 00 Yes [id number] 1 tablet EVERY 6 HOURS 1 tablet [...] SCIC, AND/OR DC.] Future Scheduled Test HOME [facility] MAY ACCEPT ORDERS FROM THE [...] BLOCKAGE/LEAKAGE, HEAVY SEDIMENT. 1 - 3 PRN HALFWAY VISITS FOR CATHETER CHANGE(S) AND/OR TROUBLESHOOTING. [code = SKILLED NURSE TO INSTRUCT PATIENT/CAREGIVER AND PERFORM CARE AND MANAGEMENT OF INDWELLING URINARY CATHETER. INDWELLING CATHETER INSERTION WITH 16 FR CATHETER WITH 10 ML BALLOON VIA STERILE TECHNIQUE, CHANGE Q 4 WEEKS AND PRN FOR LEAKING OR MALFUNCTIONING CATHETER. IRRIGATE URINARY CATHETER WITH 30-60CC NORMAL SALINE PRN BLOCKAGE/LEAKAGE, HEAVY SEDIMENT. 1 - 3 PRN HALFWAY VISITS FOR CATHETER CHANGE(S) AND/OR TROUBLESHOOTING.] Future [...] MAINTAIN SITUATIONAL AWARENESS AND WILL NOTIFY CLINICAL MCAT INSTRUCTOR AND PHYSICIAN/PROVIDER WITH ANY CHANGE IN CONDITION. [code = SKILLED NURSE TO PERFORM ENVIRONMENTAL SAFETY RISK ASSESSMENT AND FALL RISK ASSESSMENT AND PROVIDE INSTRUCTION TO IMPLEMENT ENVIRONMENTAL SAFETY AND FALL PREVENTION STRATEGIES THROUGHOUT THE CERTIFICATION PERIOD. SKILLED NURSE WILL MAINTAIN SITUATIONAL AWARENESS AND WILL NOTIFY CLINICAL MCAT INSTRUCTOR AND PHYSICIAN/PROVIDER WITH ANY CHANGE IN CONDITION.] [...] CARE WILL BE ESTABLISHED THAT MEETS PATIENT'S HALFWAY NEEDS AND INCLUDES PATIENT GOAL FOR HOME [...] End Date/Time Encounter Type Admission Type Attending [facility] Care Department Encounter ID Discharge Date Discharge Status Discharge Condition Discharge Reason Percent Goals Met 2025-07-22 00:00:00 2025-09-19 00:00:00 Outpatient READMISSIO N [facility] [id number] 22.58
--- OUTSIDE RECORDS SUMMARY | 2025-09-18 18:00 | XMS_ITS | Clinical Summary ---
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 Name Role Phone MICHELLE GARRISON, CARMEN Unavailable Unavailable WINDY RAUSCH, MELISSA Unavailable Unavailable Payers Payer Name Policy Type Policy Number Effective Date Expira tion Date [facility] OPTUM PROGRAM - PDGM Problems Condition [...] 09-23 00:00: 00 ATHSCL HEART DISEASE OF [place] CORONARY ARTERY W/O ANG PCTRS Active 09-23 [...] 06-03 00:00: 00 07-20 23:59 :00 No [id number] 1 tablet EVERY 6 HOURS 1 tablet EVERY 6 HOURS (route: oral) Med Classific ation: Central Nervous System Agents atorvastati n 80 mg tablet 06-03 00:00: 00 07-20 23:59 :00 No [id number] 1 tablet DAILY 1 tablet DAILY (route: oral) Med Classific ation: Cardiovas cular Therapy Agents B-Complex tablet 06-03 00:00: 00 07-20 23:59 :00 No [id number] 1 tablet DAILY 1 tablet DAILY (route: oral) Med Classific ation: Electroly te Balance-N utritiona l Products benzonatate 200 mg capsule 06-03 00:00: 00 07-20 23:59 :00 No [id number] 1 capsule 3 TIMES DAILY 1 capsule 3 TIMES DAILY (route: oral) Med Classific ation: Respirato ry Therapy Agents clopidogrel 75 mg tablet 06-03 00:00: 00 07-20 23:59 :00 No [id number] 1 tablet DAILY 1 tablet DAILY (route: oral) Med Classific ation: Hematolog ical Agents ferrous gluconate 324 mg (37.5 mg iron) tablet 06-03 00:00: 00 07-20 23:59 :00 No [id number] 1 tablet DAILY 1 tablet DAILY (route: oral) Med Classific ation: Electroly te Balance-N utritiona l Products folic acid 1 mg tablet 06-03 00:00: 00 07-20 23:59 :00 No [id number] 1 tablet DAILY 1 tablet DAILY (route: oral) Med Classific ation: Electroly te Balance-N utritiona l Products furosemide 40 mg tablet 06-03 00:00: 00 07-20 23:59 :00 No [id number] 1 tablet DAILY 1 tablet DAILY (route: oral) Med Classific ation: Cardiovas cular Therapy Agents hydrocodone 5 mg-acetamin ophen 325 mg tablet 06-03 00:00: 00 07-20 23:59 :00 No [id number] 1 tablet EVERY 4 HOURS 1 tablet EVERY 4 HOURS (route: oral) Med Classific ation: Analgesic , Anti-infl ammatory or Antipyret ic ipratropium 0.5 mg-albutero l 3 mg (2.5 mg base)/3 mL nebulizatio n soln 06-03 00:00: 00 07-20 23:59 :00 No [id number] 1 mL EVERY 6 HOURS 1 mL EVERY 6 HOURS (route: inhalation ) Med Classific ation: Respirato ry Therapy Agents Lidoderm 5 % topical patch 06-03 00:00: 00 07-20 23:59 :00 No [id number] 1 adhesiv e patch, medicat ed DIRECTED 1 adhesive patch, medicated DIRECTED (route: topical) Med Classific ation: Dermatolo gical Mucinex 600 mg tablet, extended release 06-03 00:00: 00 07-20 23:59 :00 No [id number] 2 tablet 2 TIMES DAILY 2 tablet 2 TIMES DAILY (route: oral) Med Classific ation: Respirato ry Therapy Agents naloxone 4 mg/actuatio n nasal spray 06-03 00:00: 00 07-20 23:59 :00 No [id number] Per instruc tions NEEDED Per instructio ns NEEDED (route: nasal) Med Classific ation: Antidotes and other Reversal Agents ondansetron HCl 8 mg tablet 06-03 00:00: 00 07-20 23:59 :00 No [id number] 1 tablet EVERY 6 HOURS 1 tablet EVERY 6 HOURS (route: oral) Med Classific ation: Gastroint estinal Therapy Agents tamsulosin 0.4 mg capsule 06-03 00:00: 00 07-20 23:59 :00 No [id number] 2 capsule DAILY 2 capsule DAILY (route: oral) Med Classific ation: Genitouri nary Therapy Thera-M 9 mg iron-400 mcg tablet 06-03 00:00: 00 07-20 23:59 :00 No [id number] 1 tablet DAILY 1 tablet DAILY (route: oral) Med Classific ation: Electroly te Balance-N utritiona l Products thiamine HCl (vitamin B1) 100 mg tablet 06-03 00:00: 00 07-20 23:59 :00 No [id number] 1 tablet DAILY 1 tablet DAILY (route: oral) Med Classific ation: Electroly te Balance-N utritiona l Products Trelegy Ellipta 100 mcg-62.5 mcg-25 mcg powder for inhalation 06-03 00:00: 00 07-20 23:59 :00 No [id number] 1 inhalat ion DAILY 1 inhalation DAILY (route: inhalation ) Med Classific ation: Respirato ry Therapy Agents Vitamin D3 25 mcg (1,000 unit) tablet 06-03 00:00: 00 07-20 23:59 :00 No [id number] 1 tablet DAILY 1 tablet DAILY (route: oral) Med Classific ation: Electroly te Balance-N utritiona l Products oxygen gas for inhalation 06-07 00:00: 00 07-20 23:59 :00 No [id number] 2 Liter O2 - CONTINUOUS 2 Liter O2 - CONTINUOUS (route: inhalation ) Med Classific ation: Medical Supplies and Durable Medical Equipment (DME) aluminum-ma g hydroxide-s imethicone 200 mg-200 mg-20 mg/5 mL oral susp 2024-09 00:00: 00 Yes [id number] 15 mL EVERY 6 HOURS 15 mL EVERY 6 HOURS (route: oral) Med Classific ation: Gastroint estinal Therapy Agents atorvastati n 20 mg tablet 2024-09 00:00: 00 Yes [id number] 1 tablet BEDTIME 1 tablet BEDTIME (route: oral) Med Classific ation: Cardiovas cular Therapy Agents clopidogrel 75 mg tablet 2024-09 00:00: 00 Yes [id number] 1 tablet DAILY 1 tablet DAILY (route: oral) Med Classific ation: Hematolog ical Agents furosemide 40 mg tablet 2024-09 00:00: 00 Yes [id number] 1 tablet DAILY 1 tablet DAILY (route: oral) Med Classific ation: Cardiovas cular Therapy Agents hydrocodone 5 mg-acetamin ophen 325 mg tablet 2024-09 00:00: 00 Yes [id number] 1 tablet 2 TIMES DAILY 1 tablet 2 TIMES DAILY (route: oral) Med Classific ation: Analgesic , Anti-infl ammatory or Antipyret ic ipratropium 0.5 mg-albutero l 3 mg (2.5 mg base)/3 mL nebulizatio n soln 2024-09 00:00: 00 Yes [id number] 3 mL EVERY 4 HOURS 3 mL EVERY 4 HOURS (route: inhalation ) Med Classific ation: Respirato ry Therapy Agents levofloxaci n 750 mg tablet 2024-09 00:00: 00 07-31 23:59 :00 No [id number] 1 tablet DAILY 1 tablet DAILY (route: oral) Med Classific ation: Anti-Infe ctive Agents LIDOCAINE PAIN RELIEF 5% 2024-09 00:00: 00 Yes [id number] 1 patch NEEDED 1 patch A S NEEDED (route: TOPICALLY) Med Classific ation: ANALGESIC S mecobalamin (vitamin B12) 5,000 mcg disintegrat ing tablet 2024-09 00:00: 00 Yes [id number] 1 tablet DAILY 1 tablet DAILY (route: oral) Med Classific ation: Electroly te Balance-N utritiona l Products mirtazapine 7.5 mg tablet 2024-09 00:00: 00 Yes [id number] 1 tablet BEDTIME 1 tablet BEDTIME (route: oral) Med Classific ation: Central Nervous System Agents Mucinex 1,200 mg tablet, extended release 2024-09 00:00: 00 Yes [id number] 1 tablet 2 TIMES DAILY 1 tablet 2 TIMES DAILY (route: oral) Med Classific ation: Respirato ry Therapy Agents prednisone 20 mg tablet 2024-09 00:00: 00 07-24 23:59 :00 No [id number] 2 tablet DAILY 2 tablet DAILY (route: oral) Med Classific ation: Endocrine tamsulosin 0.4 mg capsule 2024-09 00:00: 00 Yes [id number] 1 capsule BEDTIME 1 capsule BEDTIME (route: oral) Med Classific ation: Genitouri nary Therapy trazodone 50 mg tablet 2024-09 00:00: 00 Yes [id number] 1 tablet BEDTIME 1 tablet BEDTIME (route: oral) Med Classific ation: Central Nervous System Agents Xanax 0.5 mg tablet 2024-09 00:00: 00 Yes [id number] 1 tablet EVERY 6 HOURS 1 tablet [...] SCIC, AND/OR DC.] Future Scheduled Test HOME [facility] MAY ACCEPT ORDERS FROM [...] BLOCKAGE/LEAKAGE, HEAVY SEDIMENT. 1 - 3 PRN HALF-WAY VISITS FOR CATHETER CHANGE(S) AND/OR TROUBLESHOOTING. [code = SKILLED NURSE TO INSTRUCT PATIENT/CAREGIVER AND PERFORM CARE AND MANAGEMENT OF INDWELLING URINARY CATHETER. INDWELLING CATHETER INSERTION WITH 16 FR CATHETER WITH 10 ML BALLOON VIA STERILE TECHNIQUE, CHANGE Q 4 WEEKS AND PRN FOR LEAKING OR MALFUNCTIONING CATHETER. IRRIGATE URINARY CATHETER WITH 30-60CC NORMAL SALINE PRN BLOCKAGE/LEAKAGE, HEAVY SEDIMENT. 1 - 3 PRN HALF-WAY VISITS FOR CATHETER CHANGE(S) AND/OR TROUBLESHOOTING.] Future [...] MAINTAIN SITUATIONAL AWARENESS AND WILL NOTIFY CLINICAL MEMORY CARE DIRECTOR AND PHYSICIAN/PROVIDER WITH ANY CHANGE IN CONDITION. [code = SKILLED NURSE TO PERFORM ENVIRONMENTAL SAFETY RISK ASSESSMENT AND FALL RISK ASSESSMENT AND PROVIDE INSTRUCTION TO IMPLEMENT ENVIRONMENTAL SAFETY AND FALL PREVENTION STRATEGIES THROUGHOUT THE CERTIFICATION PERIOD. SKILLED NURSE WILL MAINTAIN SITUATIONAL AWARENESS AND WILL NOTIFY CLINICAL MEMORY CARE DIRECTOR AND PHYSICIAN/PROVIDER WITH ANY CHANGE IN [...] CARE WILL BE ESTABLISHED THAT MEETS PATIENT'S HALF-WAY NEEDS AND INCLUDES PATIENT GOAL FOR HOME [...] Outpatient READMISSIO N [facility] [id number] 22.58
--- OUTSIDE RECORDS SUMMARY | 2025-09-18 18:00 | XMS_ITS | Clinical Summary ---
Author Organization Unknown Care Team Providers Care It Application Support Analyst Name Role Phone MICHELLE GARRISON, CARMEN Unavailable [...] 09-23 00:00: 00 ATHSCL HEART DISEASE OF [place] CORONARY ARTERY W/O ANG PCTRS Active 09-23 [...] 06-03 00:00: 00 07-20 23:59 :00 No [id number] 1 tablet EVERY 6 HOURS 1 tablet EVERY 6 HOURS (route: oral) Med Classific ation: Central Nervous System Agents atorvastati n 80 mg tablet 06-03 00:00: 00 07-20 23:59 :00 No [id number] 1 tablet DAILY 1 tablet DAILY (route: oral) Med Classific ation: Cardiovas cular Therapy Agents B-Complex tablet 06-03 00:00: 00 07-20 23:59 :00 No [id number] 1 tablet DAILY 1 tablet DAILY (route: oral) Med Classific ation: Electroly te Balance-N utritiona l Products benzonatate 200 mg capsule 06-03 00:00: 00 07-20 23:59 :00 No [id number] 1 capsule 3 TIMES DAILY 1 capsule 3 TIMES DAILY (route: oral) Med Classific ation: Respirato ry Therapy Agents clopidogrel 75 mg tablet 06-03 00:00: 00 07-20 23:59 :00 No [id number] 1 tablet DAILY 1 tablet DAILY (route: oral) Med Classific ation: Hematolog ical Agents ferrous gluconate 324 mg (37.5 mg iron) tablet 06-03 00:00: 00 07-20 23:59 :00 No [id number] 1 tablet DAILY 1 tablet DAILY (route: oral) Med Classific ation: Electroly te Balance-N utritiona l Products folic acid 1 mg tablet 06-03 00:00: 00 07-20 23:59 :00 No [id number] 1 tablet DAILY 1 tablet DAILY (route: oral) Med Classific ation: Electroly te Balance-N utritiona l Products furosemide 40 mg tablet 06-03 00:00: 00 07-20 23:59 :00 No [id number] 1 tablet DAILY 1 tablet DAILY (route: oral) Med Classific ation: Cardiovas cular Therapy Agents hydrocodone 5 mg-acetamin ophen 325 mg tablet 06-03 00:00: 00 07-20 23:59 :00 No [id number] 1 tablet EVERY 4 HOURS 1 tablet EVERY 4 HOURS (route: oral) Med Classific ation: Analgesic , Anti-infl ammatory or Antipyret ic ipratropium 0.5 mg-albutero l 3 mg (2.5 mg base)/3 mL nebulizatio n soln 06-03 00:00: 00 07-20 23:59 :00 No [id number] 1 mL EVERY 6 HOURS 1 mL EVERY 6 HOURS (route: inhalation ) Med Classific ation: Respirato ry Therapy Agents Lidoderm 5 % topical patch 06-03 00:00: 00 07-20 23:59 :00 No [id number] 1 adhesiv e patch, medicat ed DIRECTED 1 adhesive patch, medicated DIRECTED (route: topical) Med Classific ation: Dermatolo gical Mucinex 600 mg tablet, extended release 06-03 00:00: 00 07-20 23:59 :00 No [id number] 2 tablet 2 TIMES DAILY 2 tablet 2 TIMES DAILY (route: oral) Med Classific ation: Respirato ry Therapy Agents naloxone 4 mg/actuatio n nasal spray 06-03 00:00: 00 07-20 23:59 :00 No [id number] Per instruc tions NEEDED Per instructio ns NEEDED (route: nasal) Med Classific ation: Antidotes and other Reversal Agents ondansetron HCl 8 mg tablet 06-03 00:00: 00 07-20 23:59 :00 No [id number] 1 tablet EVERY 6 HOURS 1 tablet EVERY 6 HOURS (route: oral) Med Classific ation: Gastroint estinal Therapy Agents tamsulosin 0.4 mg capsule 06-03 00:00: 00 07-20 23:59 :00 No [id number] 2 capsule DAILY 2 capsule DAILY (route: oral) Med Classific ation: Genitouri nary Therapy Thera-M 9 mg iron-400 mcg tablet 06-03 00:00: 00 07-20 23:59 :00 No [id number] 1 tablet DAILY 1 tablet DAILY (route: oral) Med Classific ation: Electroly te Balance-N utritiona l Products thiamine HCl (vitamin B1) 100 mg tablet 06-03 00:00: 00 07-20 23:59 :00 No [id number] 1 tablet DAILY 1 tablet DAILY (route: oral) Med Classific ation: Electroly te Balance-N utritiona l Products Trelegy Ellipta 100 mcg-62.5 mcg-25 mcg powder for inhalation 06-03 00:00: 00 07-20 23:59 :00 No [id number] 1 inhalat ion DAILY 1 inhalation DAILY (route: inhalation ) Med Classific ation: Respirato ry Therapy Agents Vitamin D3 25 mcg (1,000 unit) tablet 06-03 00:00: 00 07-20 23:59 :00 No [id number] 1 tablet DAILY 1 tablet DAILY (route: oral) Med Classific ation: Electroly te Balance-N utritiona l Products oxygen gas for inhalation 06-07 00:00: 00 07-20 23:59 :00 No [id number] 2 Liter O2 - CONTINUOUS 2 Liter O2 - CONTINUOUS (route: inhalation ) Med Classific ation: Medical Supplies and Durable Medical Equipment (DME) aluminum-ma g hydroxide-s imethicone 200 mg-200 mg-20 mg/5 mL oral susp 2024-09 00:00: 00 Yes [id number] 15 mL EVERY 6 HOURS 15 mL EVERY 6 HOURS (route: oral) Med Classific ation: Gastroint estinal Therapy Agents atorvastati n 20 mg tablet 2024-09 00:00: 00 Yes [id number] 1 tablet BEDTIME 1 tablet BEDTIME (route: oral) Med Classific ation: Cardiovas cular Therapy Agents clopidogrel 75 mg tablet 2024-09 00:00: 00 Yes [id number] 1 tablet DAILY 1 tablet DAILY (route: oral) Med Classific ation: Hematolog ical Agents furosemide 40 mg tablet 2024-09 00:00: 00 Yes [id number] 1 tablet DAILY 1 tablet DAILY (route: oral) Med Classific ation: Cardiovas cular Therapy Agents hydrocodone 5 mg-acetamin ophen 325 mg tablet 2024-09 00:00: 00 Yes [id number] 1 tablet 2 TIMES DAILY 1 tablet 2 TIMES DAILY (route: oral) Med Classific ation: Analgesic , Anti-infl ammatory or Antipyret ic ipratropium 0.5 mg-albutero l 3 mg (2.5 mg base)/3 mL nebulizatio n soln 2024-09 00:00: 00 Yes [id number] 3 mL EVERY 4 HOURS 3 mL EVERY 4 HOURS (route: inhalation ) Med Classific ation: Respirato ry Therapy Agents levofloxaci n 750 mg tablet 2024-09 00:00: 00 07-31 23:59 :00 No [id number] 1 tablet DAILY 1 tablet DAILY (route: oral) Med Classific ation: Anti-Infe ctive Agents LIDOCAINE PAIN RELIEF 5% 2024-09 00:00: 00 Yes [id number] 1 patch NEEDED 1 patch A S NEEDED (route: TOPICALLY) Med Classific ation: ANALGESIC S mecobalamin (vitamin B12) 5,000 mcg disintegrat ing tablet 2024-09 00:00: 00 Yes [id number] 1 tablet DAILY 1 tablet DAILY (route: oral) Med Classific ation: Electroly te Balance-N utritiona l Products mirtazapine 7.5 mg tablet 2024-09 00:00: 00 Yes [id number] 1 tablet BEDTIME 1 tablet BEDTIME (route: oral) Med Classific ation: Central Nervous System Agents Mucinex 1,200 mg tablet, extended release 2024-09 00:00: 00 Yes [id number] 1 tablet 2 TIMES DAILY 1 tablet 2 TIMES DAILY (route: oral) Med Classific ation: Respirato ry Therapy Agents prednisone 20 mg tablet 2024-09 00:00: 00 07-24 23:59 :00 No [id number] 2 tablet DAILY 2 tablet DAILY (route: oral) Med Classific ation: Endocrine tamsulosin 0.4 mg capsule 2024-09 00:00: 00 Yes [id number] 1 capsule BEDTIME 1 capsule BEDTIME (route: oral) Med Classific ation: Genitouri nary Therapy trazodone 50 mg tablet 2024-09 00:00: 00 Yes [id number] 1 tablet BEDTIME 1 tablet BEDTIME (route: oral) Med Classific ation: Central Nervous System Agents Xanax 0.5 mg tablet 2024-09 00:00: 00 Yes [id number] 1 tablet EVERY 6 HOURS 1 tablet [...] SCIC, AND/OR DC.] Future Scheduled Test HOME [facility] MAY ACCEPT ORDERS FROM THE [...] BLOCKAGE/LEAKAGE, HEAVY SEDIMENT. 1 - 3 PRN SENIOR LIVING VISITS FOR CATHETER CHANGE(S) AND/OR TROUBLESHOOTING. [code = SKILLED NURSE TO INSTRUCT PATIENT/CAREGIVER AND PERFORM CARE AND MANAGEMENT OF INDWELLING URINARY CATHETER. INDWELLING CATHETER INSERTION WITH 16 FR CATHETER WITH 10 ML BALLOON VIA STERILE TECHNIQUE, CHANGE Q 4 WEEKS AND PRN FOR LEAKING OR MALFUNCTIONING CATHETER. IRRIGATE URINARY CATHETER WITH 30-60CC NORMAL SALINE PRN BLOCKAGE/LEAKAGE, HEAVY SEDIMENT. 1 - 3 PRN SENIOR LIVING VISITS FOR CATHETER CHANGE(S) AND/OR TROUBLESHOOTING.] Future [...] MAINTAIN SITUATIONAL AWARENESS AND WILL NOTIFY CLINICAL COIL TESTER AND PHYSICIAN/PROVIDER WITH ANY CHANGE IN CONDITION. [code = SKILLED NURSE TO PERFORM ENVIRONMENTAL SAFETY RISK ASSESSMENT AND FALL RISK ASSESSMENT AND PROVIDE INSTRUCTION TO IMPLEMENT ENVIRONMENTAL SAFETY AND FALL PREVENTION STRATEGIES THROUGHOUT THE CERTIFICATION PERIOD. SKILLED NURSE WILL MAINTAIN SITUATIONAL AWARENESS AND WILL NOTIFY CLINICAL COIL TESTER AND PHYSICIAN/PROVIDER WITH ANY CHANGE IN CONDITION.] [...] CARE WILL BE ESTABLISHED THAT MEETS PATIENT'S SENIOR LIVING NEEDS AND INCLUDES PATIENT GOAL FOR HOME [...] End Date/Time Encounter Type Admission Type Attending [facility] Care Department Encounter ID Discharge Date Discharge Status Discharge Condition Discharge Reason Percent Goals Met 2025-07-22 00:00:00 2025-09-19 00:00:00 Outpatient [facility] [id number] 22.58
--- OUTSIDE RECORDS SUMMARY | 2025-09-18 18:00 | XMS_ITS | Clinical Summary ---
Author Organization Unknown Care Team Providers Care Theater Teacher Name Role Phone MICHELLE GARRISON, CARMEN Unavailable Unavailable WINDY RAUSCH, MELISSA Unavailable Unavailable Payers Payer Name Policy Type Policy Number Effective Date Expira tion Date [facility] [employer] PROGRAM - PDGM Problems Condition Name [...] 09-23 00:00: 00 ATHSCL HEART DISEASE OF [place] CORONARY ARTERY W/O ANG PCTRS Active 09-23 [...] 06-03 00:00: 00 07-20 23:59 :00 No [id number] 1 tablet EVERY 6 HOURS 1 tablet EVERY 6 HOURS (route: oral) Med Classific ation: Central Nervous System Agents atorvastati n 80 mg tablet 06-03 00:00: 00 07-20 23:59 :00 No [id number] 1 tablet DAILY 1 tablet DAILY (route: oral) Med Classific ation: Cardiovas cular Therapy Agents B-Complex tablet 06-03 00:00: 00 07-20 23:59 :00 No [id number] 1 tablet DAILY 1 tablet DAILY (route: oral) Med Classific ation: Electroly te Balance-N utritiona l Products benzonatate 200 mg capsule 06-03 00:00: 00 07-20 23:59 :00 No [id number] 1 capsule 3 TIMES DAILY 1 capsule 3 TIMES DAILY (route: oral) Med Classific ation: Respirato ry Therapy Agents clopidogrel 75 mg tablet 06-03 00:00: 00 07-20 23:59 :00 No [id number] 1 tablet DAILY 1 tablet DAILY (route: oral) Med Classific ation: Hematolog ical Agents ferrous gluconate 324 mg (37.5 mg iron) tablet 06-03 00:00: 00 07-20 23:59 :00 No [id number] 1 tablet DAILY 1 tablet DAILY (route: oral) Med Classific ation: Electroly te Balance-N utritiona l Products folic acid 1 mg tablet 06-03 00:00: 00 07-20 23:59 :00 No [id number] 1 tablet DAILY 1 tablet DAILY (route: oral) Med Classific ation: Electroly te Balance-N utritiona l Products furosemide 40 mg tablet 06-03 00:00: 00 07-20 23:59 :00 No [id number] 1 tablet DAILY 1 tablet DAILY (route: oral) Med Classific ation: Cardiovas cular Therapy Agents hydrocodone 5 mg-acetamin ophen 325 mg tablet 06-03 00:00: 00 07-20 23:59 :00 No [id number] 1 tablet EVERY 4 HOURS 1 tablet EVERY 4 HOURS (route: oral) Med Classific ation: Analgesic , Anti-infl ammatory or Antipyret ic ipratropium 0.5 mg-albutero l 3 mg (2.5 mg base)/3 mL nebulizatio n soln 06-03 00:00: 00 07-20 23:59 :00 No [id number] 1 mL EVERY 6 HOURS 1 mL EVERY 6 HOURS (route: inhalation ) Med Classific ation: Respirato ry Therapy Agents Lidoderm 5 % topical patch 06-03 00:00: 00 07-20 23:59 :00 No [id number] 1 adhesiv e patch, medicat ed DIRECTED 1 adhesive patch, medicated DIRECTED (route: topical) Med Classific ation: Dermatolo gical Mucinex 600 mg tablet, extended release 06-03 00:00: 00 07-20 23:59 :00 No [id number] 2 tablet 2 TIMES DAILY 2 tablet 2 TIMES DAILY (route: oral) Med Classific ation: Respirato ry Therapy Agents naloxone 4 mg/actuatio n nasal spray 06-03 00:00: 00 07-20 23:59 :00 No [id number] Per instruc tions NEEDED Per instructio ns NEEDED (route: nasal) Med Classific ation: Antidotes and other Reversal Agents ondansetron HCl 8 mg tablet 06-03 00:00: 00 07-20 23:59 :00 No [id number] 1 tablet EVERY 6 HOURS 1 tablet EVERY 6 HOURS (route: oral) Med Classific ation: Gastroint estinal Therapy Agents tamsulosin 0.4 mg capsule 06-03 00:00: 00 07-20 23:59 :00 No [id number] 2 capsule DAILY 2 capsule DAILY (route: oral) Med Classific ation: Genitouri nary Therapy Thera-M 9 mg iron-400 mcg tablet 06-03 00:00: 00 07-20 23:59 :00 No [id number] 1 tablet DAILY 1 tablet DAILY (route: oral) Med Classific ation: Electroly te Balance-N utritiona l Products thiamine HCl (vitamin B1) 100 mg tablet 06-03 00:00: 00 07-20 23:59 :00 No [id number] 1 tablet DAILY 1 tablet DAILY (route: oral) Med Classific ation: Electroly te Balance-N utritiona l Products Trelegy Ellipta 100 mcg-62.5 mcg-25 mcg powder for inhalation 06-03 00:00: 00 07-20 23:59 :00 No [id number] 1 inhalat ion DAILY 1 inhalation DAILY (route: inhalation ) Med Classific ation: Respirato ry Therapy Agents Vitamin D3 25 mcg (1,000 unit) tablet 06-03 00:00: 00 07-20 23:59 :00 No [id number] 1 tablet DAILY 1 tablet DAILY (route: oral) Med Classific ation: Electroly te Balance-N utritiona l Products oxygen gas for inhalation 06-07 00:00: 00 07-20 23:59 :00 No [id number] 2 Liter O2 - CONTINUOUS 2 Liter O2 - CONTINUOUS (route: inhalation ) Med Classific ation: Medical Supplies and Durable Medical Equipment (DME) aluminum-ma g hydroxide-s imethicone 200 mg-200 mg-20 mg/5 mL oral susp 2024-09 00:00: 00 Yes [id number] 15 mL EVERY 6 HOURS 15 mL EVERY 6 HOURS (route: oral) Med Classific ation: Gastroint estinal Therapy Agents atorvastati n 20 mg tablet 2024-09 00:00: 00 Yes [id number] 1 tablet BEDTIME 1 tablet BEDTIME (route: oral) Med Classific ation: Cardiovas cular Therapy Agents clopidogrel 75 mg tablet 2024-09 00:00: 00 Yes [id number] 1 tablet DAILY 1 tablet DAILY (route: oral) Med Classific ation: Hematolog ical Agents furosemide 40 mg tablet 2024-09 00:00: 00 Yes [id number] 1 tablet DAILY 1 tablet DAILY (route: oral) Med Classific ation: Cardiovas cular Therapy Agents hydrocodone 5 mg-acetamin ophen 325 mg tablet 2024-09 00:00: 00 Yes [id number] 1 tablet 2 TIMES DAILY 1 tablet 2 TIMES DAILY (route: oral) Med Classific ation: Analgesic , Anti-infl ammatory or Antipyret ic ipratropium 0.5 mg-albutero l 3 mg (2.5 mg base)/3 mL nebulizatio n soln 2024-09 00:00: 00 Yes [id number] 3 mL EVERY 4 HOURS 3 mL EVERY 4 HOURS (route: inhalation ) Med Classific ation: Respirato ry Therapy Agents levofloxaci n 750 mg tablet 2024-09 00:00: 00 07-31 23:59 :00 No [id number] 1 tablet DAILY 1 tablet DAILY (route: oral) Med Classific ation: Anti-Infe ctive Agents LIDOCAINE PAIN RELIEF 5% 2024-09 00:00: 00 Yes [id number] 1 patch NEEDED 1 patch A S NEEDED (route: TOPICALLY) Med Classific ation: ANALGESIC S mecobalamin (vitamin B12) 5,000 mcg disintegrat ing tablet 2024-09 00:00: 00 Yes [id number] 1 tablet DAILY 1 tablet DAILY (route: oral) Med Classific ation: Electroly te Balance-N utritiona l Products mirtazapine 7.5 mg tablet 2024-09 00:00: 00 Yes [id number] 1 tablet BEDTIME 1 tablet BEDTIME (route: oral) Med Classific ation: Central Nervous System Agents Mucinex 1,200 mg tablet, extended release 2024-09 00:00: 00 Yes [id number] 1 tablet 2 TIMES DAILY 1 tablet 2 TIMES DAILY (route: oral) Med Classific ation: Respirato ry Therapy Agents prednisone 20 mg tablet 2024-09 00:00: 00 07-24 23:59 :00 No [id number] 2 tablet DAILY 2 tablet DAILY (route: oral) Med Classific ation: Endocrine tamsulosin 0.4 mg capsule 2024-09 00:00: 00 Yes [id number] 1 capsule BEDTIME 1 capsule BEDTIME (route: oral) Med Classific ation: Genitouri nary Therapy trazodone 50 mg tablet 2024-09 00:00: 00 Yes [id number] 1 tablet BEDTIME 1 tablet BEDTIME (route: oral) Med Classific ation: Central Nervous System Agents Xanax 0.5 mg tablet 2024-09 00:00: 00 Yes [id number] 1 tablet EVERY 6 HOURS 1 tablet [...] SCIC, AND/OR DC.] Future Scheduled Test HOME [facility] MAY ACCEPT ORDERS FROM THE [...] MAINTAIN SITUATIONAL AWARENESS AND WILL NOTIFY CLINICAL HOME INSPECTOR AND PHYSICIAN/PROVIDER WITH ANY CHANGE IN CONDITION. [code = SKILLED NURSE TO PERFORM ENVIRONMENTAL SAFETY RISK ASSESSMENT AND FALL RISK ASSESSMENT AND PROVIDE INSTRUCTION TO IMPLEMENT ENVIRONMENTAL SAFETY AND FALL PREVENTION STRATEGIES THROUGHOUT THE CERTIFICATION PERIOD. SKILLED NURSE WILL MAINTAIN SITUATIONAL AWARENESS AND WILL NOTIFY CLINICAL HOME INSPECTOR AND PHYSICIAN/PROVIDER WITH ANY CHANGE IN CONDITION.] [...] End Date/Time Encounter Type Admission Type Attending [facility] Care Department Encounter ID Discharge Date Discharge Status Discharge Condition Discharge Reason Percent Goals Met 2025-07-22 00:00:00 2025-09-19 00:00:00 Outpatient [facility] [id number] 22.58
== END 2025-08-08 13:19 | disposition home or self-care (01) ==
PROVIDERS: Emergency Provider Emergency Medicine; PCP Internal Medicine
DX: N39.0 Urinary tract infection, site not specified (principal); Z79.02 Long term (current) use of antithrombotics/antiplatelets; Z87.891 Personal history of nicotine dependence; J44.9 Chronic obstructive pulmonary disease, unspecified; Z85.118 Personal history of other malignant neoplasm of bronchus and lung
CPT/HCPCS: 36415; 80053; 81001; 83690; 85025; 87086; 96374; 96375; 99284; J1171; J2405

== ENCOUNTER 2025-08-25 16:08 | Emergency (ER) | payer OTHER, SELFPAY ==
[2025-08-25 16:13] VITALS: BP 167/69; PULSE 106; RESP 24; TEMP 36.8; O2SAT 92; BMI 14.9
--- NOTE | 2025-08-25 16:29 | W.ED.WEAKNES ---
HPI - Weakness General: Chief complaint: Weakness Stated complaint: weakness Time Seen by Provider: 08/25/25 16:16 History of Present Illness: 75-year-old male presents to the emergency room patient has a known history of lung cancer with widespread metastasis (stage IV). Presents to the emergency room on 3 L/min by nasal cannula typically wears 2. Describes being generally weak no chest pain no productive cough Associated symptoms: Denies chest pain, chills or fever(s) Related Data Home Medications ?Medication ?Instructions ?Recorded ?Confirmed atorvastatin 20 mg tablet 20 mg PO BEDTIME 07/17/25 07/29/25 clopidogrel 75 mg tablet 75 mg PO DAILY 07/17/25 07/29/25 cyanocobalamin (B12)-cobamamide 1 arnold sublingual DAILY 07/17/25 07/29/25 5,000 mcg-100 mcg sublingual lozenge (B12) furosemide 40 mg tablet 40 mg PO DAILY 07/17/25 07/29/25 guaifenesin 600 mg tablet, 1,200 mg PO BID 07/17/25 07/29/25 extended release 12 hr (Mucinex) ipratropium 0.5 mg-albuterol 3 mg 3 ml inhalation Q6H PRN sob 07/17/25 07/29/25 (2.5 mg base)/3 mL nebulization soln tamsulosin 0.4 mg capsule 0.4 mg PO BEDTIME 07/17/25 07/29/25 trazodone 50 mg tablet 50 mg PO DAILY PRN Sleep 07/17/25 07/29/25 benzonatate 100 mg capsule 100 mg PO TID 07/29/25 07/29/25 breathing device 07/29/25 07/29/25 levofloxacin 750 mg tablet mg PO 07/29/25 07/29/25 lidocaine 5 % topical patch 1 patch topical DAILY PRN 07/29/25 07/29/25 (DermacinRx Lidocan) mirtazapine 7.5 mg tablet 15 mg PO BEDTIME 07/29/25 07/29/25 Previous Rx's ?Medication ?Instructions ?Recorded aluminum-mag hydroxide-simethicone 15 ml PO Q6H PRN Indigestion 60 07/19/25 200 mg-200 mg-20 mg/5 mL oral susp days #3,000 mL (Mag-Al Plus) lorazepam 2 mg tablet (Ativan) 2 mg PO Q8H PRN anxiety/air hunger 08/06/25 #14 tabs oxycodone 5 mg tablet 5 mg PO Q4H PRN pain #25 tabs 08/06/25 spironolactone 25 mg tablet 25 mg PO DAILY #20 tabs 08/06/25 fluticasone 250 mcg-salmeterol 50 1 inh inhalation BID #60 ea 08/09/25 mcg/dose blistr powdr for inhalation (Wixela Inhub) atropine 1 % eye drops 4 drp sublingual Q4H PRN 08/13/25 secretions #5 mL bisacodyl 10 mg rectal suppository 10 mg CO DAILY PRN constipation #5 08/13/25 ea diphenhydramine HCl 25 mg tablet 25 mg PO Q4H #5 tabs 08/13/25 hydroxyzine HCl 25 mg tablet 25 mg PO TID PRN Itching #5 tabs 08/13/25 lorazepam 2 mg/mL oral concentrate 2 mg sublingual Q4H PRN 08/13/25 Anxiety/Seizure #30 mL morphine 10 mg/5 mL oral solution 20 mg (10 mL) sublingual 08/13/25 DIRECTED PRN pain/SOB 14 days #100 mL morphine concentrate 100 mg/5 mL 20 mg sublingual DIRECTED PRN 08/13/25 (20 mg/mL) oral solution Pain/SOB 14 days #30 mL ondansetron 4 mg disintegrating 4 mg translingual Q4H PRN nausea 08/13/25 tablet #5 tabs lorazepam 2 mg/mL oral concentrate 2 mg sublingual Q4H PRN 08/25/25 Anxiety/Seizure #30 mL morphine concentrate 100 mg/5 mL 20 mg sublingual DIRECTED PRN 08/25/25 (20 mg/mL) oral solution Pain/SOB 14 days #30 mL Allergies Allergy/AdvReac Type Severity Reaction Status Date / Time budesonide Allergy ADR-Gastrointestinal Verified 07/29/25 14:34 Upset Review of Systems Const: Reports: body aches, change in weight, fatigue and malaise; Denies: fever(s) or chills Card: Denies: chest pain Resp: Reports: dyspnea GI: Denies: abdominal pain Musc: Reports: back pain and joint pain; Denies: neck pain Skin/Breast: Denies: rash PFSH ED PFSH: Medical History Metastatic primary lung cancer COPD (chronic obstructive pulmonary disease) Non-small cell carcinoma of lung Social History Smoking and tobacco/nicotine status: former use of tobacco/nicotine (1 ppd X 60 years. Quit in December 2024) Physical Exam Const: GENERAL APPEARANCE: lethargic and ill appearing NUTRITIONAL APPEARANCE: cachectic ORIENTATION/CONSCIOUSNESS: Yes awake and Yes lethargic HENMT: COMMON NORMALS: normocephalic, atraumatic and hearing grossly normal bilaterally HEAD & SCALP: normocephalic and atraumatic Resp: COMMON NORMALS: normal respiratory effort, No retractions, No use of accessory muscles and clear to auscultation bilaterally AUSCULTATION: clear to auscultation bilaterally Cardio: COMMON NORMALS: regular rate, regular rhythm and No murmurs present (Cardio) RATE: regular rate RHYTHM: regular rhythm GI: COMMON NORMALS: Soft to palpation and No hepatosplenomegaly present AUSCULTATION: Yes normoactive bowel sounds PALPATION: Yes Soft to palpation, No Tenderness to palpation present (GI), No Guarding due to palpation present (GI) and Yes No hepatosplenomegaly present Extremity: COMMON NORMALS: normal to inspection, capillary refill normal, no clubbing, cyanosis or edema, no calf tenderness and no pedal edema Neuro: SENSORIUM/ORIENTATION: Yes lethargic Skin: COMMON NORMALS: no rashes or lesions noted GENERAL SKIN EXAM: no rashes or lesions noted Course Vital Signs: Vital signs: Vital Signs Temperature 98.2 F 08/25/25 16:13 Pulse Rate 104 H 08/25/25 20:59 Respiratory Rate 24 H 08/25/25 16:13 Blood Pressure 120/64 08/25/25 20:59 Pulse Oximetry 99 08/25/25 20:59 Oxygen Delivery Me thod Room Air 08/25/25 20:12 Oxygen Flow Rate 3 08/25/25 16:13 MDM - Weakness Medical Decision Making Medical decision making Social determinants: Care from family members completely reliant on others for ADLs I reviewed the patient's medical record. I reviewed the patient's current home meds. Alternate historians: Family members Differential diagnosis: Pneumonia PE generalized decline secondary to cancer Lab Review: White count 13 3 hemoglobin 9 6 medic at 31 2 BUN 29 creatinine 0.5 AST ALT and alk phos all elevated showed generally increasing levels over the last month. Imaging: No imaging done Assessment of risk Level of risk: High Hospitalization considerations: Considered hospitalization for relief of symptoms Reexamination: Unchanged Assessment and plan: Family at the bedside is considered hospice in the past they report he is at had significant decline recently. They are interested in hospice would prefer not to be hospitalized do not wish to do any more workup than what is currently been done in the emergency room. They declined any imaging. I think this is appropriate his oxygenation is still good we will set him up for hospice at home they will see him tomorrow he was given Roxanol and Ativan tonight to go home with with instructions how to use hospice will see him in the morning at his home. We have made arrangements to assist him with getting the patient into the home once he arrives at home. Lab Data 08/25/25 17:04 08/25/25 17:04 Laboratory Results WBC 13.44 10^3/uL (3.29-11.43) H 08/25/25 17:04 RBC 2.94 10^6/uL (3.85-5.65) L 08/25/25 17:04 Hgb 9.60 g/dL (11.27-16.99) L 08/25/25 17:04 Hct 31.2 % (37-53) L 08/25/25 17:04 MCV 106.1 fl (82-101) H 08/25/25 17:04 MCH 32.7 pg (27-33) 08/25/25 17:04 MCHC 30.8 g/dL (30-55) 08/25/25 17:04 RDW 16.5 % (12.1-15.1) H 08/25/25 17:04 Plt Count 409 10^3/cmm (157-399) H 08/25/25 17:04 MPV 9.5 fL (7.4-10.4) 08/25/25 17:04 Neut % (Auto) 83.9 % 08/25/25 17:04 Lymph % (Auto) 4.2 % 08/25/25 17:04 [place] % (Auto) 10.6 % 08/25/25 17:04 Eos % (Auto) 0.2 % 08/25/25 17:04 Baso % (Auto) 0.5 % 08/25/25 17:04 Neut # (Auto) 11.28 10^3/uL (1.8-7.7) H 08/25/25 17:04 Lymph # (Auto) 0.6 10^3/uL (0.8-4.8) L 08/25/25 17:04 [place] # (Auto) 1.4 10^3/uL (0.2-0.9) H 08/25/25 17:04 Eos # (Auto) 0.0 10^3/uL (0.0-0.8) 08/25/25 17:04 Baso # (Auto) 0.1 10^3/uL (0.0-0.1) 08/25/25 17:04 Nucleated RBC % (auto) 0 % 08/25/25 17:04 Nucleated RBCs # 0.0 /100WBC 08/25/25 17:04 Sodium 143 mmol/L (136-145) 08/25/25 17:04 Potassium 4.7 mmol/L (3.5-5.1) 08/25/25 17:04 Chloride 97 mmol/L (98-107) L 08/25/25 17:04 Carbon Dioxide 39 mmol/L (22-29) H 08/25/25 17:04 Anion Gap 11.7 (5-19) 08/25/25 17:04 BUN 29 mg/dL (8-23) H 08/25/25 17:04 Creatinine 0.5 mg/dL (0.7-1.2) L 08/25/25 17:04 GFR Calculation Not Reportable 08/25/25 17:04 Glucose 123 mg/dL (65-115) H 08/25/25 17:04 Calculated Osmolality 303 mOsm/kg (285-295) H 08/25/25 17:04 Calcium 9.9 mg/dL (8.5-10.5) 08/25/25 17:04 Total Bilirubin 1.2 mg/dL (0.15-1.2) 08/25/25 17:04 AST 162 U/L (0-40) H 08/25/25 17:04 ALT 132 U/L (0-41) H 08/25/25 17:04 Alkaline Phosphatase 442 U/L (40-130) H 08/25/25 17:04 Total Protein 6.4 g/dL (6.6-8.7) L 08/25/25 17:04 Albumin 3.5 g/dL (3.5-5.2) 08/25/25 17:04 Globulin 2.9 g/dL (1.3-4.6) 08/25/25 17:04 Urine Color Dark yellow (Yellow) A 08/25/25 18:14 Urine Appearance Turbid (CLEAR) A 08/25/25 18:14 Urine pH 5.5 (5-7) 08/25/25 18:14 Ur Specific [place] 1.024 (1.005-1.030) 08/25/25 18:14 Urine Protein 2+ (Negative) A 08/25/25 18:14 Urine Glucose (UA) Negative (Normal) 08/25/25 18:14 Urine Ketones Trace (Negative) 08/25/25 18:14 Urine Blood Negative (Negative) 08/25/25 18:14 Urine Nitrate Negative (Negative) 08/25/25 18:14 Urine Bilirubin 1+ (Negative) H 08/25/25 18:14 Urine Urobilinogen 1.0 mg/dL (Negative) 08/25/25 18:14 Ur Leukocyte Esterase 1+ (Negative) A 08/25/25 18:14 Urine RBC None /hpf (0-2) 08/25/25 18:14 Urine WBC 5-10 /hpf (0-5) H 08/25/25 18:14 Ur Squamous Epith Cells 5-10 /hpf (0-5) H 08/25/25 18:14 Calcium Oxalate Crystal 25-40 /hpf H 08/25/25 18:14 Amorphous Sediment Not Reportable 08/25/25 18:14 Urine Bacteria 2+ /hpf (NONE) H 08/25/25 18:14 No radiology studies performed this visit Discharge Plan Discharge Patient Disposition: Home Clinical Impression: Metastatic primary lung cancer, COPD (chronic obstructive pulmonary disease), Severe malnutrition Condition: Stable Prescriptions: New morphine concentrate 100 mg/5 mL (20 mg/mL) Solution 20 mg sublingual DIRECTED MDD N/A PRN (Reason: Pain/SOB) 14 Days Qty: 30 0RF Rx Instructions: 0.25ml-1ml q1H PRN may increase to 0.5ml-1ml Q1H PRN lorazepam 2 mg/mL Concentrate 2 mg sublingual Q4H PRN (Reason: Anxiety/Seizure) Qty: 30 0RF Rx Instructions: 0.25ml-1ml q4H PRN Anxiety/Seizure Start 0.25ml may increase to 0.5ml-1ml q4H No Action lidocaine [DermacinRx Lidocan] 5 % adhesive patch,medicated 1 patch topical DAILY PRN Rx Instructions: leave on most painful area for up to 12 hrs levofloxacin 750 mg tablet PO (DME) breathing device 0 .ROUTE .MEDSUPPLY fluticasone propion-salmeterol [Wixela Inhub] 250-50 mcg/dose blister with device 1 inh inhalation BID Qty: 60 11RF morphine concentrate 100 mg/5 mL (20 mg/mL) solution 20 mg sublingual DIRECTED PRN (Reason: Pain/SOB) 14 Days Qty: 30 0RF Rx Instructions: 0.25ml-1ml q1H PRN may increase to 0.5ml-1ml Q1H PRN bisacodyl 10 mg suppository 10 mg CO DAILY PRN (Reason: constipation) Qty: 5 0RF Rx Instructions: 1 suppository per rectum every day PRN for constipation. diphenhydramine HCl 25 mg tablet 25 mg PO Q4H Qty: 5 0RF Rx Instructions: Take one tablet by mouth every 4 hours as needed for allergic reaction including: Rash and/or Itching hydroxyzine HCl 25 mg tablet 25 mg PO TID PRN (Reason: Itching) Qty: 5 0RF Rx Instructions: Take 1 table by mouth as needed three times a day for itching atropine 1 % drops 4 drp sublingual Q4H PRN (Reason: secretions) Qty: 5 0RF Rx Instructions: 4 drops SL q 4 hours PRN for terminal congestion/excessive secretions. ondansetron 4 mg tablet,disintegrating 4 mg translingual Q4H PRN (Reason: nausea) Qty: 5 0RF Rx Instructions: Dissolve 1 tablet under tongue every 4 hours PRN for nausea lorazepam 2 mg/mL concentrate 2 mg sublingual Q4H PRN (Reason: Anxiety/Seizure) Qty: 30 0RF Rx Instructions: 0.25ml-1ml q4H PRN Anxiety/Seizure Start 0.25ml may increase to 0.5ml-1ml q4H morphine 10 mg/5 mL solution 20 mg sublingual DIRECTED PRN (Reason: pain/SOB) 14 Days Qty: 100 0RF Rx Instructions: 2.5ml -10ml q1H PRN may increase to 5ml -10ml Q1H PRN furosemide 40 mg tablet 40 mg PO DAILY atorvastatin 20 mg tablet 20 mg PO BEDTIME ipratropium-albuterol 0.5 mg-3 mg(2.5 mg base)/3 mL solution for nebulization 3 ml INHALATION Q6H PRN (Reason: sob) trazodone 50 mg tablet 50 mg PO DAILY PRN (Reason: Sleep) clopidogrel 75 mg tablet 75 mg PO DAILY tamsulosin 0.4 mg capsule 0.4 mg PO BEDTIME B12 5,000-100 mcg Lozenge 1 arnold SUBLINGUAL DAILY guaifenesin [Mucinex] 600 mg tablet extended release 12hr 1,200 mg PO BID alum-mag hydroxide-simeth [Mag-Al Plus] 200-200-20 mg/5 mL Suspension 15 ml PO Q6H PRN (Reason: Indigestion) 60 Days Qty: 3000 0RF benzonatate 100 mg capsule 100 mg PO TID mirtazapine 7.5 mg tablet 15 mg PO BEDTIME oxycodone 5 mg tablet 5 mg PO Q4H PRN (Reason: pain) Qty: 25 0RF lorazepam [Ativan] 2 mg tablet 2 mg PO Q8H PRN (Reason: anxiety/air hunger) Qty: 14 0RF Rx Instructions: Anxiety/air hunger spironolactone 25 mg tablet 25 mg PO DAILY Qty: 20 0RF Discharge Orders: Discharge ED (Routine); Ordered 08/25/25 Ordered By: Nikita Covington Referrals: Virgil Beaulieu MD [Primary Care Provider, Internal Medicine] Discharge Diet: Usual diet Discharge Activity: Resume usual activity Patient Instructions: Opioid Safety, Pain Management, Patient Portal & Petey Instructions Activity Restrictions/Additional Instructions: Thank you for choosing [facility] for your healthcare needs today. It is very important that you follow up as instructed or that you return to the Emergency Department should you have concerns or if your condition changes or worsens in any way. Emergency department visits are focused on emergent conditions, in some cases you may require further evaluation on an outpatient basis. You were seen in the emergency room with complaints of generalized pain and some hypoxia. After long discussion we have decided to continue on hospice. We have contacted hospice they will see you in your home tomorrow. You are discharged home with morphine and Ativan liquid to use as needed. Use 2-1/2 to 10 mL of the Roxanol (morphine) every hour as needed. You can also use Ativan 2 mg every 4-6 hours as needed. continue your oxygen at your usual 2 to 3 L/min (Please note that included in your discharge packet is information concerning opioid safety and pain management. This information is given to all patients were discharged from the ER regardless of their discharge diagnosis or the medicines they usually take or are prescribed.) Print Language: Yakut Coding Level of Care Code ED Timber Surveyor for Yobany Mendiola
--- OUTSIDE RECORDS SUMMARY | 2025-08-25 16:29 | XMS_ITS | Encounter Summary ---
Author Organization [facility] Address [address] [place] [address] Phone Care Team Providers Care Rail Car Operator Name Role Phone Carmen Artis Primary Care Provider Cheng Franco MD Unavailable Yuval Lciona MD Unavailable Encounter Details Date Type Department Care Team (Late st Contact Info) Description 08/23/[address] [facility] Medicine Oncology [address] [facility] [address] [place] [phone] Nadege [...] week 04/14/2025 How often do you attend [facility] ch or spiritism services? 1 to 4 times per year 04/14/2025 Do you belong to any clubs o r organizations such as anglican groups, unions, fraternal or athletic groups, or [...] any time in the past 12 m [facility], were you homeless or living in a longterm (including now)? No 04/14/2025 Social Connection and Isolation Panel Answer Date Recorded In a typical week, how many times do you talk on the phone with family, friends, or neighbors? More than three times a week 05/26/2025 How often do you get togethe r with friends or relatives? More than three times a week 05/26/2025 How often do you attend chur ch or spiritism services? 1 to 4 times per year 05/26/2025 Do you belong to any clubs o r organizations such as anglican groups, unions, fraternal or athletic groups, or [...] any time in the past 12 m [facility], were you homeless or living in a longterm (including now)? No 05/26/2025 [facility] Utilities Answer Date Recorded In the [...] Telephone Encounter - Nadege Burr RN - 08/23/2025 10:43 AM UPHOLSTERY HANDLER [facility] called stating that they will not be able to come today for the CT and tomorrow for the visit, Sim is very weak and very sick. I offered hospice and [facility] states that hospice came out to the patient's house and he has refused it. She will call me if we need to reschedule or do anything else. LSTERY HANDLER documented in this encounter Plan of Treatment Not on file documented as of this encounter Visit Diagnoses Not on filedocumented in this encounter Care Teams Rail Car Operator Relationship Specialty Start Date End Date Carmen Artis [address] [place] [address] PCP - General Family Medicine 03/09/25 Cheng Franco MD [address] [place] [address] Medical Oncologist/Litigation Attorney Medical Oncology 04/05/25 Yuval Licona MD [address] [place], [place] [id number] Referring Physician Thoracic Surgery 04/05/25 documented as of this encounter
--- OUTSIDE RECORDS SUMMARY | 2025-08-25 16:30 | XMS_ITS | Encounter Summary ---
Author Organization [facility] Address [address] [place] [address] Care Team Providers Care Engineering Design Manager Name Role Phone Virgil Beaulieu MD Primary Care Provider [phone] Encounter Details Date Type Department Care Team (Late st Contact Info) Description 05/21/2025 Orders Only [facility] [place] - Primary Care [address] [place] [address] Carmen Artis, PUBLIC HEALTH SANITARIAN-C [address] [facility] [address] [place] [address] Social History Tobacco Use Types Packs/Day Years Used Date Smoking Tobacco: Every Day Cigarettes Smokeless Tobacco: Never Alcohol Use Standard Drinks/Week Comments Yes 1 (1 standard drink = 0.6 oz pur e alcohol) per day [facility] Utilities Answer Date Recorded In the past 12 months has [employer] electric, gas, oil, or water company threatened [...] any time in the past 12 m [facility], were you homeless or living in a fdc (including now)? No 05/19/2025 Sex and Gender Information Value Date Recorded Sex Assigned at Not on file Legal Sex Male 12:56 PM CDT Gender Identity Not on file Sexual Orientation Not on file documented as of this encounter Plan of Treatment Upcoming Encounters Date Type Department Care Team (Late st Contact Info) Description 11/08/2025 9:45 AM PELLETISING EXTRUDER OPERATOR Office Visit [facility] [place] - [facility] [address] [place] [address] Virgil Beaulieu MD [address] [place], [place] [address] documented as of this encounter Visit Diagnoses Not on filedocumented in this encounter Additional Health Concerns Health Status Noted Date Alive and well 07/02/2024 Assessment Noted Time PHQ-9 Depression Total Score: 0 11/19/19 25 12:46 PM PELLETISING EXTRUDER OPERATOR A fall risk assessment has been complete d for the patient 05/19/2025 3:14 PM CDT documented as of this encounter Care Teams Engineering Design Manager Relationship Specialty Start Date End Date Virgil Beaulieu MD [address] [place], [place] [address] PCP - General Internal Medicine 07/31/18 documented as of this encounter
--- OUTSIDE RECORDS SUMMARY | 2025-08-25 16:30 | XMS_ITS | Encounter Summary ---
Author Organization [facility] Address [address] [place] [address] Care Team Providers Care Fixer Boarding Room Name Role Phone Virgil Beaulieu MD Primary Care Provider [phone] Reason for Visit * Reason Comments Med Refill Encounter Details Date Type Department Care Team (Late st Contact Info) Description 11/26/2024 Refill [facility] [place] - Urgent Care [address] [place] [address] Gopi Bernstein FNP [address] [place] [address] COPD exacerbation (HCC) Social History Tobacco [...] st Contact Info) Description 11/08/2025 9:45 AM THEATRICAL RIGGER Office Visit [facility] [place] - Primary Care [address] [place] [address] Virgil Beaulieu MD [address] [place] [address] documented as of this encounter Visit Diagnoses Diagnosis COPD exacerbation (HCC) Obstructive chronic bronchitis with exacerbation documented in this encounter Additional Health Concerns Health Status Noted Date Alive and well 07/02/2024 Assessment Noted Time PHQ-9 Depression Total Score: 0 11/19/19 25 12:46 PM THEATRICAL RIGGER A fall risk assessment has been complete d for the patient 11/19/2024 12:47 PM THEATRICAL RIGGER documented as of this encounter Care Teams Fixer Boarding Room Relationship Specialty Start Date End Date Virgil Beaulieu MD [address] [place] [address] PCP - General Internal Medicine 07/31/18 documented as of this encounter
--- OUTSIDE RECORDS SUMMARY | 2025-08-25 16:30 | XMS_ITS | Data Portability ---
Author Organization [place] - [facility] [place], ADMIN Address [address] [place] [address] Care Team Providers Care Director Of Product Management Name Role Phone ZURDO CRUZ Primary Care Provider [phone] Assessment Encounter Date Assessment Date Assessment LastModified by Organization Details LastModified Time 03/31/2018 03/31/2018 68-year-old male patient that presents for evaluation of abnormal CT chest. [email or web address] Not available 03/31/2018 13:39:49 08/19/2018 08/19/2018 68-year-old male patient that presents for follow up. [email or web address] Not available 08/19/2018 16:13:40 12/16/2018 12/16/2018 68 year old male patient who presents for follow up. [email or web address] Not available 12/16/2018 15:57:36 Plan of Treatment Reminders Order Date Submit Date Provider Last Modified By Organization Details Last Modified Time Details Appointments None recorded. Lab None recorded. Referral pulmonolog ist referral 2017 018 [email or web address] Laurie Ayala MD, [address] [facility], [place], [address], 8 09:23:33 Procedures None recorded. Surgeries None recorded. Imaging CT, chest, w/o contrast - [facility] 2017 018 ALEXANDRA [facility], [address] [place] [place], [address], 8 12:01:19 Medication Orders Symbicort 80 mcg-4.5 mcg/actuat ion HFA aerosol inhaler 2017 018 INTERFACE [facility] [address], [address] [place] [address], [place], [address], 8 13:43:22 ProAir HFA 90 mcg/actuat ion aerosol inhaler 2017 018 INTERFACE [place] [address], [address] [place] [address] Road, [place], [address], 8 13:43:22 magnesium oxide 400 mg (241.3 mg magnesium) tablet 2017 018 INTERFACE [place] [address], [address] [place] [address], [place], [address], 8 16:15:45 famotidine 20 mg tablet 2017 018 INTERFACE [place] [address], [address] [place] [address], [place], [address], 8 16:17:10 meclizine 25 mg tablet 2017 018 [place] [address], [address] [place] [address], [place], [address], 8 16:15:46 atorvastat in 20 mg tablet 2017 018 [place] [address], [address] [place] [address], [place], [address], 8 16:13:49 Plavix 75 mg tablet 2017 018 [place] [address], [address] [place] [address], [place], [address], 8 16:16:59 Patient TargetsNo targets recorded. Patient Instructions Encounter Date Encounter Id Patient Instructions Last Modified By Organization Details Last Modified Time 03/31/2018 [id number] chronic obstructive pulmonary disease (COPD): care instructions [facility] [place] Not available 03/31/2018 13:43:15 learning about copd and how to prevent lung infections [facility] [place] Not available 03/31/2018 13:43:15 complete PFT w/ post bronchodilator spirometry* [email or web address] Not available 04/30/2018 09:22:13 08/19/2018 [id number] chronic obstructive pulmonary disease (COPD): care instructions [...] and Plan. Tatiana Davila 08/19/2018 3:13 PM [email or web address] Not available 08/19/2018 16:16:22 12/16/2018 [id number] chronic obstructive pulmonary disease (COPD): care instructions [...] and Plan. 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 for R adiology result abnormal Chest [...] : Other Health care Provid er: [email or web address] [place] [facility] (Radiology) [address], [place], [address], 08/20/2018 10:05:56 12/02/19 19 12/01/2018 CT, chest [...] Doctor : Other Health care Provid er: [address] (Radiology) [address] [facility], [place], [address], 12/24/2018 14:58:24 Result Notes Documentation Provider Name [...] Healthcare Provider: KEVIN Green, [place] - [facility] [place] 08/20/2018 10:05:56 Ct, Chest, W/o Contrast : [...] Admitting Doctor: Other Healthcare Provider: KONSTANTIN Truj[place], [place] - [facility] [place] 12/24/2018 14:58:24 Problems Name Problem SNOMED Code Status Onset Date Resolution Date Notes Provider Name and Address Organization Details Recorded Time Cerebrovas cular accident 226209955 Active 2017 KEVIN PATRICK, [place] - [facility] [place] 8 15:53:08 Vertebral artery stenosis 03921398 Active 2017 ZURDO CRUZ, KATHRIN [address], [place], [address] , [facility] [place] 8 17:20:46 Gastroesop hageal reflux disease 654831542 Active 2017 ZURDO CRUZ CNP [address], [place], [address] , [facility] [place] 8 17:20:47 Carotid artery stenosis 34885340 Active 2017 ZURDO CRUZ CNP [address], [place], [address] , [facility] [place] 8 08:09:44 Tobacco user 165603948 Completed 201703/31/2018 Radha araya LPN null, [place] [facility] [place] 8 13:15:43 Hypomagnes emia 479408038 Active 2017 ZURDO CRUZ CNP [address], [place], [address] , [facility] [place] 8 08:09:54 Smoker 80326959 Active 2017 Radha araya LPN null, [place] [facility] [place] 8 13:15:48 Problem Notes None recorded. Medical [...] (BMI) Body weight Heart rate Oxygen saturation Systolic And Diastolic Provider Name and Address Organization Details Last Updated DateTime 9 182.88 cm 19.1 kg/m2 77752.5 2 g 87 /min 97 % 125/74 mm[Hg] Freda DurbinKONSTANTIN beltran [address] 9 15:06:52 Date Recorded Body weight Body mass index (BMI) Body height Heart rate Oxygen saturation Respiratory rate Systolic And Diastolic Provider Name and Address Organization Details Last Updated DateTime 8 35901.6 7 g 20.1 kg/m2 182.88 cm 78 /min 99 % 16 /min 110/62 mm[Hg] COLETTE MÉNDEZ LPN [address] 8 15:50:27 Date Recorded Pain severity - 0-10 verbal numeric rating [Score] - Reported Provider Name and Address Organization Details Last Updated DateTime 01/07/2018 0 Not Available [facility] 8 06:38:16 Date Recorded Body height Body mass index (BMI) Body weight Heart rate Oxygen saturation Systolic And Diastolic Provider Name and Address Organization Details Last Updated DateTime 8 182.88 cm 19.3 kg/m2 23329.1 2 g 81 /min 98 % 158/103 mm[Hg] Radha shaikh [address] 8 13:21:20 Date Recorded Body height Body mass index (BMI) Body weight Heart rate Oxygen saturation Systolic And Diastolic Provider Name and Address Organization Details Last Updated DateTime 8 182.88 cm 19.1 kg/m2 87059.5 2 g 59 /min 98 % 163/96 mm[Hg] Radha Steel [address] 8 15:42:16 Social History Question Answer Notes LastModified by Organizat ion Details LastModified Time Tobacco Smoking Status Current Every Day Smoker ZURDO CRUZ, SOLAR DESIGN ENGINEER [address] [facility], [place], [address], [address] 01/07/2018 16:09:10 What Was The Date Of Your Most Recent Tobacco Screening? 12/16/2018 Information n ot available 04/17/2019 How Much Tobacco Do You Smoke? 0.5 PPD [email or web address] Information not available 01/07/2018 How Many Years Have You Smoked Tobacco? 55 [email or web address] Information not available 03/31/2018 Sex: Unknown Functional Status None recorded. Mental Status None recorded. Family History Nothing Reported. Medical History No medical history recorded. Past Encounters Encounter ID Performer Location Encounter Start Date Encounter Closed Date Diagnosis/Indication Diagnosis SNOMED-CT Code Diagnosis ICD10 Code Diagnosis IMO Codes Diagnosis Note [id number] ROSARIO MENJIVAR MD [facility] [place] [facility] [address] [place] [address] 01/07/2018 15:29:26 01/07/2018 16:20:21 Cerebrovascular accident 814663552 I63.9 . Acute bilateral cerebrovas cular accident with visual field deficits but predominan tly in the left posterior cerebral artery distributi on,status post tPA treatment. Probably atheroembo lic in etiology. S/P IR guided Left proximal vertebral artery ROXANN placement. 2. Severe bilateral carotid artery disease with proximal left vertebral artery disease. Carotid ar jaya stenosis 24442103 I65.29 Vertebral stent placement 01/04/18 Right internal carotid artery stent placement for resolution . Dr. Jarrett high-grade stenosis. Radiology result abnormal 522867979 R93.8 12/09/[address]: Linear opacities seen in the lung apices bilaterall y, right greater left. Are consistent with fibrotic change. Minimal emphysemat ous changes are seen. There is no lobar consolidat ion or effusion. Tobacco user 626376809 Z 72.0 Smokes 1 ppd x 50 years. Hypomagnesemia 964298870 E83.42 Dizziness 506336147 R42 Gastroesop hageal reflux disease 068002336 K21.9 Vertebral artery stenosis 41074679 I65.09 12/13/2017 Left vertebral artery balloon expandable stent placement, which was ultimately dilated to 4 mm diameter with excellent re-establi shment of flow and no acute complicati on. Dr. Martinez [id number] Laurie Ayala MD [facility] [address] [place] [address] 03/31/2018 12:49:53 03/31/2018 13:38:44 Chronic obstructive pulmonary disease 83314863 J44.9 Patient has been smoking for the past 55 years. He has shortness of breath on exertion. He denied any cough, hemoptysis , or chest pain. The patient had a CT chest done on December 08, 2017 which showed emphysemat ous changes. The plan is:1. PFT.2. Start on albuterol inhaler as needed.3. Symbicort 80/4.5 b.i.d..4. Follow-up in 3 months. Imaging of lung abnormal 145256773 R91.[address] had a CT chest done on December 08, 2017 which showed biapical fibrotic changes. There was no evidence of masses or nodules. The plan is:1. Repeat CT chest in June 2018 follow-up week of June. CT chest done on [...] There is no axillary adenopathy . Smoker 46126598 F17.200 The patient was counseled on smoking cessation. He said he will try to cut down. When I see the patient 3 months will talk to him about Chantix. [id number] Laurie Ayala MD [facility] [address] [facility] [place] [address] 08/19/2018 15:27:47 08/19/2018 16:26:08 Chronic obstructive pulmonary disease 96142064 J44.9 Patient has been smoking for the [...] is 69% predicted. Imaging of lung abnormal 385989793 R91.8 The patient had a CT chest [...] There is no axillary adenopathy . Smoker 00359045 F17.200 The patient was counseled on smoking cessation. Will continue to encourage smoking cessation. [id number] Laurie Ayala MD [facility] [address] [place] [address] 12/16/2018 14:13:25 12/16/2018 16:01:32 Chronic obstructive pulmonary disease 20994052 J44.9 Patient has been smoking for the [...] is 69% predicted. Imaging of lung abnormal 001910752 R91.[address] The patient had a CT chest [...] There is no axillary adenopathy . Smoker 61223295 F17.200 The patient was counseled on smoking [...] Member ID Guarantor Name 06/08/2025 [employer] [facility] Sim Carty [id number] Sim Mendoza Carty 03/10/2025 1 [facility] (MEDICARE REPLACEMENT/ADV ANTAGE - HMO) [id number] Sim A Carty [id number] Sim Kelly Carty 08/17/2025 [facility] OFFICE OF INTEGRATED CARE Sim Carty [id number] Sim Jimeneze 08/17/2025 [facility] [id number] Sim A Carty [id number] Sim A Carty 01/29/2025 1 MEDICARE [place]: [facility] Sim A Carty [id number] Sim Mendoza Carty 12/11/2017 SLIDING FEE SCHEDULE - DISCOUNT Sim Kelly Carty 01/29/2025 1 MEDICARE [place]: [facility] Sim A Carty [id number] Sim A Carty 06/06/2025 [facility] HEALTH INSURANCE - MEDICARE - PART A - INSTITUTIONAL - NATIONAL - C - [facility] - [place]) Sim A Carty [id number] Sim A Carty 08/17/2025 1 [facility] (MEDICARE REPLACEMENT/ADV ANTAGE - PPO) [id number] Sim A Carty [id number] Sim A Carty 08/17/2025 2 [employer] (MEDICARE SUPPLEMENT) PLAN N Sim A Carty [id number] Sim A Carty 01/29/2025 2 [employer] (MEDICARE SUPPLEMENT) Sim A Carty [id number] Sim Carty Notes Date Note Type Note Provider [...] There is no lobar consolidation or effusion. ZURDO CRUZ, SOLAR DESIGN ENGINEER [address] [place], [address], [facility] [place] 01/08/2018 08:10:46 03/31/2018 text/html 68-year-old male patient [...] with his . Laurie Ayala MD [address] [place], [address], [facility] [place] 03/31/2018 13:44:04 08/19/2018 text/html 68-year-old male patient [...] , who also smokes. Laurie Ayala MD [address] [place], [place] [address] [place], [address], [facility] [place] 08/19/2018 16:34:29 12/16/2018 text/html This is a [...] , who also smokes. Laurie Ayala MD [address] [place] [address], [place], [address], [place] - [facility] [place] 12/16/2018 16:03:58
--- OUTSIDE RECORDS SUMMARY | 2025-08-25 16:30 | XMS_ITS | Encounter Summary ---
Author Organization [facility] Address [address] [place] [address] Care Team Providers Care Controller [place] Name Role Phone Virgil Beaulieu MD Primary Care Provider [phone] Encounter Details Date Type Department Care Team (Late st Contact Info) Description 08/09/2025 Orders Only [facility] [place] - Primary Care [address] [place] [address] Carmen Artis, APPLICATION TECHNICAL DESIGNER-C [address] [facility] [address] [place] [address] Social History Tobacco Use Types Packs/Day Years Used Date Smoking Tobacco: Former Cigarettes 0 Q uit: 04/2025 Smokeless Tobacco: Never Alcohol Use Standard Drinks/Week Comments Yes 1 (1 standard drink = 0.6 oz pur e alcohol) per day PHQ-2 Answer Date Recorded PHQ-2 Score 0 11/19/2024 Housing Stability Vital Sign Answer Oscar e Recorded In the last 12 months, was t here a time when you were not able to pay the mortgage or rent on time? No 05/19/2025 Number of Times Moved in the Last Year Not on fi le 05/19/2025 At any time in the past 12 m [facility], were you homeless or living in a longterm (including now)? No 05/19/2025 Hunger Vital Sign Answer Date Recorded Within the past 12 months, y ou worried that your food would run out before you got the money to buy more. Never true 08/09/20 25 Within the past 12 months, t he food you bought just didn't last and you didn't have money to get more. Never true 08/09/2025 PRAPARE - Transportation Answer Date Re corded In the past 12 months, has l ack of transportation kept you from medical appointments or from getting medications? No 07/24 In the past 12 months, has l ack of transportation kept you from meetings, work, or from getting things needed for daily living? No 08/09/2025 Housing Stability Vital Sign Answer Oscar e Recorded In the last 12 months, was t here a time when you were not able to pay the mortgage or rent on time? No 08/09/2025 Number of Times Moved in the Last Year Not on fi le 08/09/2025 At any time in the past 12 m [facility], were you homeless or living in a longterm (including now)? No 08/09/2025 [facility] Utilities Answer Date Recorded In the past 12 months has th e electric, gas, oil, or water company threatened to shut off services in your home? No 08/09/2025 Sex and Gender Information Value Date Recorded Sex Assigned at Not on file Legal Sex Male 12:56 PM CDT Gender Identity Not on file Sexual Orientation Not on file documented as of this encounter Functional Status * ADL / Functional Screening Question Answer Date of Assessment Author Physical or Cognitive limita tion that affects ADLs No 08/09/2025 4:00 PM STEFFEN HOUSE SUPERVISOR Rita Monzon documented as of this encounter Plan of Treatment Upcoming Encounters Date Type Department Care Team (Late st Contact Info) Description 11/08/2025 9:45 AM STEFFEN HOUSE SUPERVISOR Office Visit [facility] [place] - Primary Care [address] [place] [address] Virgil Beaulieu MD [address] [place] [address] documented as of this encounter Visit Diagnoses Not on filedocumented in this encounter Additional Health Concerns Health Status Noted Date Alive and well 07/02/2024 Assessment Noted Time PHQ-9 Depression Total Score: 0 11/19/19 25 12:46 PM STEFFEN HOUSE SUPERVISOR A fall risk assessment has been complete d for the patient 08/09/2025 4:00 PM STEFFEN HOUSE SUPERVISOR documented as of this encounter Care Teams Controller [place] Relationship Specialty Start Date End Date Virgil Beaulieu MD [address] [facility] [address] [place] [address] PCP - General Internal Medicine 07/31/18 documented as of this encounter
--- OUTSIDE RECORDS SUMMARY | 2025-08-25 16:30 | XMS_ITS | Encounter Summary ---
Author Organization [facility] Address [address] [place] [address] Care Team Providers Care Classification Case Manager Name Role Phone Virgil Beaulieu MD Primary Care Provider [phone] Encounter Details Date Type Department Care Team (Late st Contact Info) Description 04/30/2025 Telephone [facility] - Primary Care [address] [facility] [address] [facility] [address] [place] [address] Brian Ramos Social History Tobacco Use Types Packs/Day Years Used Date Smoking Tobacco: Every Day Cigarettes Smokeless Tobacco: Never Alcohol Use Standard Drinks/Week Comments Yes 1 (1 standard drink = 0.6 oz pur e alcohol) per day [facility] Utilities Answer Date Recorded In the past 12 months has e trip.me, gas, oil, or water [employer] threatened to shut off services in your [...] any time in the past 12 m [facility], were you homeless or living in a halfway (including now)? No 03/25/2025 Sex and Gender Information Value Date Recorded Sex Assigned at Not on file Legal Sex Male 12:56 PM CDT Gender Identity Not on file Sexual Orientation Not on file documented as of this encounter Miscellaneous Notes * Telephone Encounter - Brian Ramos - 05/03/2025 5:31 PM CDT Patient reports that he is still at [place] for rehab and he will be there for another week. He will call when he gets out of the hospital in [place] to set up an appointment. * Telephone Encounter - Brian Ramos - 05/03/2025 5:28 PM CDT Images from the original note were not included. PEEWEE Minre-Rayshawn 04/29/2025 Virgil Beaulieu MD; P [facility] Patient discharged from [place] 04/28. I am not seeing a follow-up [...] st Contact Info) Description 11/08/2025 9:45 AM DESIGNER/WRITER Office Visit [facility] [place] - Primary Care [address] [place] [address] Virgil Beaulieu MD [address] [place] [address] documented as of this encounter Visit Diagnoses Not on filedocumented in this encounter Additional Health Concerns Health Status Noted Date Alive and well 07/02/2024 Assessment Noted Time PHQ-9 Depression Total Score: 0 11/19/19 25 12:46 PM DESIGNER/WRITER A fall risk assessment has been complete d for the patient 03/25/2025 4:03 PM CDT documented as of this encounter Care Teams Classification Case Manager Relationship Specialty Start Date End Date Virgil Beaulieu MD [address] [place] [address] PCP - General Internal Medicine 07/31/18 documented as of this encounter
--- OUTSIDE RECORDS SUMMARY | 2025-08-25 16:30 | XMS_ITS | Clinical Summary ---
Author Organization [facility] Address [address] [place] [address] Care Team Providers Care Material Assembler Name Role Phone Virgil Beaulieu MD Primary Care Provider [phone] Allergies Active Allergy Reactions Criticality Noted Date [...] needed for opioid reversal. 2 each Active HYDROcodone-alfred taminophen (NORCO) 5-325 mg per tablet 1 tablet every 8 (eight) hours as needed for moderate pain. Active sennosides-docu sate sodium (SENOKOT-S) 8.6-50 mg tablet Take 2 tablets by mouth in the morning and 2 tablets in the evening. Active traZODone (DESYREL) 50 mg tablet Take 50 mg by mouth nightly. Active mirtazapine (REMERON) 7.5 mg tabletIndicatio ns:Body [...] total) by mouth nightly. 90 tablet 1 Active ALPRAZolam (XANAX) 0.5 mg tabletIndicatio ns:Malignant [...] HOURS NEEDED FOR WHEEZING 360 mL Active cephalexin (KEFLEX) 500 mg capsule Take 500 mg by mouth in the morning and 500 mg in the evening. Active LORazepam (ATIVAN) 2 mg tablet Take 2 mg by mouth every 8 (eight) hours. Active oxyCODONE (ROXICODONE) 5 mg immediate release (IR) tablet Take 5 mg by mouth every 4 (four) hours as needed. Active Trelegy Ellipta 100-62.5-25 mcg blister with [...] for anxiety. 120 tablet 2024 Discontinued(R eorder) levoFLOXacin (LEVAQUIN) 750 mg tablet Take 750 mg by mouth in the morning. 2024 Discontinued mirtazapine (REMERON) 7.5 mg tablet Take 7.5 mg by mouth nightly. 2024 Discontinued(R eorder) tamsulosin (FLOMAX) 0.4 mg 24 hr capsule Take 0.4 mg by mouth in the morning. 2024 Discontinued(R eorder) melatonin 1 mg tablet,chewable Chew 1 mg nightly as needed. 2024 Discontinued mirtazapine (REMERON) 15 mg tabletIndicatio ns:Body mass index (BMI) 19.9 or less, adult,[place] ht Take 1 tablet (15 mg total) by mouth nightly. 30 tablet 1 2025 Discontinued sodium polystyrene (KAYEXALATE) 15 gram powderIndicatio ns:Hyperkalemia Take by mouth once for 1 dose. 45 g 1 025 2024 predniSONE (DELTASONE) 20 mg tabletIndicatio ns:Acute bronchitis, unspecified organism Take 2 tablets (40 mg total) by mouth in the morning for 5 days. 10 tablet 025 2024 Active Problems Problem Noted Date Diagnosed Date Severe protein-calorie malnutrition 08/10/2025 Chemotherapy-induced neutropenia 06/02/2025 Anxiety about health 06/02/2025 [...] Continue chemotherapy treatment per oncology team at [facility] Primary cancer of left upper lobe of lung 2024 Cerebral infarction 01/19/2025 Overview (01/19/2025): Jul 23, 2024 Entered By: GIL LEWIS Comment: right sided weakness B12 deficiency 03/13/2021 Assessment & Plan (01/07/2024 3:09 PM CDT): Add B12 to today's labs Assessment & Plan (10/02/2022 4:26 PM EYELET ROW MARKER): Add B12 to today's labs Assessment & Plan (03/21/2022 5:08 PM CDT): Add B12 level to today's labs B12 1cc IM today and repeat monthly Repeat level in three months. Assessment & Plan (03/13/2021 12:22 PM CDT): Add B12 level to today's labs B12 1cc IM today Elevated MCV 10/25/2020 Assessment & Plan (10/25/2020 2:40 PM EYELET ROW MARKER): Add B12 level to today's labs Abdominal bruit 10/25/2020 Assessment & Plan (01/07/2024 3:08 PM CDT): Reviewed ultrasound from 2020 Repeat Abdominal ultrasound for assessment of abdominal aorta. Assessment & Plan (10/25/2020 2:49 PM EYELET ROW MARKER): Abdominal ultrasound to assess aorta. Essential hypertension 09/24/2019 Assessment & Plan (01/07/2024 3:07 PM CDT): Continue to monitor Low sodium diet Assessment & Plan (04/23/2023 3:16 PM CDT): Continue low sodium diet and keep BP log for review. Assessment & Plan (10/02/2022 4:27 PM EYELET ROW MARKER): Continue current regimen with diet and low sodium and keep BP log Assessment & Plan (03/22/2022 6:24 PM CDT): Continue current regimen blood pressure control and monitor clinically. Assessment & Plan (10/25/2020 2:43 PM EYELET ROW MARKER): Hypertension is improving with treatment. Continue current [...] appointment. Assessment & Plan (09/24/2019 3:57 PM EYELET ROW MARKER): Hypertension is worsening. Dietary sodium restriction. Stop smoking. Medication changes per orders. Blood pressure will be reassessed in 4 weeks. Add lisinopril 10mg daily BMP and BP check in two weeks with nursing staff On statin therapy 09/24/2019 Panlobular emphysema 11/18/2018 Assessment & Plan (06/02/2025 5:24 PM CDT): Continue DuoNeb treatments Continue Mucinex 1200mg BID Assessment & Plan (10/02/2022 4:31 PM EYELET ROW MARKER): Schedule PFT at [facility] Encourage to stop smoking Continue current medications. Assessment & Plan (10/25/2020 2:40 PM EYELET ROW MARKER): COPD is improving with treatment. Continue current medications. Assessment & Plan (09/24/2019 3:58 PM EYELET ROW MARKER): COPD is improving with treatment. Medication changes [...] smoking Assessment & Plan (10/02/2022 4:25 PM EYELET ROW MARKER): Encourage to stop smoking. Reviewed CT from April 13: IMPRESSION: No acute cardiopulmonary findings. Stable 1.2 cm right upper lobe pulmonary nodule on 0.4 cm left upper lobe pulmonary nodule. Emphysema. Atherosclerosis including coronary arteries. Recommend continued annual screening with low-dose CT in 12 months. Bilateral renal nonobstructing calculi. Assessment & Plan (10/25/2020 2:41 PM EYELET ROW MARKER): Encourage to stop smoking. Assessment & Plan (04/21/2020 3:11 PM CDT): Stop smoking Assessment & Plan (09/24/2019 4:00 PM EYELET ROW MARKER): Stop smoking Assessment & Plan (04/13/2019 1:42 [...] etiology. Assessment & Plan (10/02/2022 4:30 PM EYELET ROW MARKER): Reviewed recent CT Continue to monitor Assessment & Plan (03/22/2022 6:24 PM CDT): Repeat imaging as scheduled. Assessment & Plan (04/21/2020 3:09 PM CDT): Schedule CT chest, non-contrast, lung protocol for follow up of nodule. Assessment & Plan (09/24/2019 4:00 PM EYELET ROW MARKER): Schedule CT of lung, non-contrast Assessment & Plan (03/17/2019 11:59 AM CDT): Request recommendations from Dr. Ayala (Pulmonary at [facility]). Mixed hyperlipidemia 11/18/2018 Assessment & Plan (01/07/2024 3:09 PM CDT): Resume atorvastatin Repeat lipids in 6 months Assessment & Plan (10/02/2022 4:26 PM EYELET ROW MARKER): Continue atorvastatin Repeat labs in 6 months Assessment & Plan (10/25/2020 2:40 PM EYELET ROW MARKER): Lipid abnormalities are improving with treatment. Pharmacotherapy as ordered. Lipids will be reassessed in 6 months. Assessment & Plan (04/21/2020 3:11 PM CDT): Lipid abnormalities are improving with treatment. Pharmacotherapy as ordered. Lipids will be reassessed in 6 months. Assessment & Plan (09/24/2019 4:00 PM EYELET ROW MARKER): Lipid abnormalities are improving with treatment. Pharmacotherapy [...] aspirin. Assessment & Plan (10/25/2020 2:44 PM EYELET ROW MARKER): Schedule bilateral carotid doppler Assessment & Plan [...] CTA carotids. Referral to Dr. Bazan at [facility] History of right common carotid artery stent [...] needed Assessment & Plan (10/02/2022 4:26 PM EYELET ROW MARKER): GERD precautions and acid reduction as needed Assessment & Plan (03/22/2022 6:24 PM CDT): Reflux precautions and acid reduction [id number] as needed Assessment & Plan (10/25/2020 2:42 PM EYELET ROW MARKER): GERD precautions and acid reduction with famotidine [...] medications Assessment & Plan (10/02/2022 4:31 PM EYELET ROW MARKER): Continue tamsulosin PSA trended downward Urology follow up if needed. Assessment & Plan (03/22/2022 6:24 PM CDT): NEIL and PSA on follow-up Assessment & Plan (10/25/2020 2:42 PM EYELET ROW MARKER): Continue to monitor symptoms. Discussed alpha chary [...] BP Assessment & Plan (10/02/2022 4:30 PM EYELET ROW MARKER): Continue clopidogrel Monitor clinically Control BP Control lipids. Stop smoking Assessment & Plan (03/22/2022 6:23 PM CDT): Currently asymptomatic. No significant neurologic sequelae. Will continue on low-dose aspirin. Encouraged to stop smoking. Control blood pressure. Assessment & Plan (09/24/2019 3:59 PM EYELET ROW MARKER): Continue clopidogrel Monitor clinically Stop smoking COPD [...] possible with Dr. Aguirre or with at [facility]. Assessment & Plan (04/23/2023 3:15 PM CDT): Plan repeat colonoscopy in 2023 Assessment & Plan (10/02/2022 4:24 PM EYELET ROW MARKER): Adenomatous polyp in 11/2018. Plan repeat in 2023. Continue to monitor Assessment & Plan (10/25/2020 2:49 PM EYELET ROW MARKER): Reviewed Colonoscopy and plan repeat in 2021. Assessment & Plan (04/21/2020 3:12 PM CDT): Colonoscopy due in 2021 Encounters Date Type Department Care Team Description 08/10/2025 Orders Only [facility] - [address] [place] [address] Carmen Artis, SHIPFITTER HELPER-C Malignant ascites (HCC) (Primary Dx); Malignant neoplasm metastatic to liver (HCC); Abdominal distension; Right upper quadrant abdominal pain 08/09/2025 3:00 PM EYELET ROW MARKER Office Visit [facility] [address] [place] [address] [address] [place], [place] [address] Carmen Artis, SHIPFITTER HELPER-C Right upper quadrant abdominal pain (Primary Dx); Hyperkalemia; Acute bronchitis, unspecified organism; Malignant neoplasm metastatic to liver (HCC); Ascites of liver; Indwelling Cuadra catheter present; Urinary retention; Abdominal distension; Severe protein-calorie malnutrition 08/09/2025 2:45 PM EYELET ROW MARKER - 08/09/2025 11:59 PM EYELET ROW MARKER Hospital Encounter [address] [place] [address] Panlobular emphysema (HCC); Essential hypertension; Hypomagnesemia; Hyponatremia; 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); Indwelling Cuadra catheter present Discharge Disposition: Home or Self Care 08/09/2025 Travel 08/09/2025 Orders Only [facility] - [facility] Care [address] [place], [place] [phone] Nicolás Rita Malignant neoplasm metastatic to liver (HCC) (Primary Dx); Malignant ascites (HCC) 08/09/2025 Orders Only [facility] - [facility] Care [address] [place], [place] [id number] Carmen Artis FNP-C 08/08/2025 Orders Only [facility] - [facility] [address] [facility] [address] [place], [place] [id number] Carmen Artis, JOHNATHON Panlobular emphysema (HCC) (Primary Dx); Essential hypertension; Hypomagnesemia; Hyponatremia; 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); Indwelling Cuadra catheter present 08/02/2025 Refill [facility] - [facility] [address] [facility] [address] [place], [place] [phone] Carmen Artis, PEEWEE-Rayshawn Panlobular emphysema (HCC) 07/28/2025 Orders Only [facility] - [facility] [address] [facility] [address] [place], [place] [phone] Alysha Perkins Hospital discharge follow-up (Primary Dx); 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); Leg swelling; Essential hypertension 07/28/2025 Refill [facility] - [facility] [address] [facility] [address] [place], [place] [phone] Alysha Perkins Malignant neoplasm of overlapping sites of lung, unspecified laterality (HCC); SERENITY (generalized anxiety disorder) 07/27/2025 2:35 PM EYELET ROW MARKER - 07/27/2025 11:59 PM EYELET ROW MARKER Hospital Encounter [facility] [address] [facility] [address] [place] [id number] Hospital discharge follow-up; Leg swelling; Vitamin D deficiency Discharge Disposition: Home or Self Care 07/27/2025 1:15 PM EYELET ROW MARKER Office Visit [facility] [address] [place] [address] Elizabeth Flor FNP Hospital discharge follow-up (Primary Dx); 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 [address] [place] [address] Richard, Jasemine R 07/14/2025 Refill [facility] - [facility] [address] [place] [address] Richard, Jasemine R Malignant neoplasm of overlapping sites of lung, unspecified laterality (HCC); SERENITY (generalized anxiety disorder) 07/01/2025 Telephone [facility] - Primary [facility] [address] [place] [address] Richard, Jasemine R 07/01/2025 Refill [facility] - [facility] [address] [place] [address] Richard, Jasemine R 06/16/2025 Orders Only [facility] - [facility] [address] [place], [place] [phone] Virgil Beaulieu MD SERENITY (generalized anxiety disorder) (Primary Dx); Malignant neoplasm of overlapping sites of lung, unspecified laterality (HCC) 06/09/2025 Orders Only [facility] [address] [place], [place] [phone] Sonam Soto Malignant neoplasm of overlapping sites of lung, unspecified laterality (HCC) (Primary Dx) 06/09/2025 Refill [facility] - [facility] [address] [place], [place] [phone] Sonam Soto Panlobular emphysema (HCC) 06/07/2025 Orders Only [facility] - [facility] [address] [place], [place] [phone] Sonam Soto Malignant neoplasm of overlapping sites of lung, unspecified laterality (HCC) (Primary Dx); 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); Cerebrovascular accident (CVA) due to thrombosis of cerebral artery (HCC) 06/06/2025 Orders Only [facility] - [facility] [address] [place] [address] Carmen Artis, PEEWEE-C Malignant neoplasm of overlapping sites of lung, unspecified laterality (HCC) 06/02/2025 3:00 PM CDT Telemedicine [facility] - [facility] [address] [place] [address] Carmen Artis FNP-C Hyperglycemia (Primary Dx); Panlobular emphysema (HCC); Decreased appetite; 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 [address] [place] [address] Savannah Pardo Rina 05/31/2025 Travel 05/31/2025 Orders Only [facility] - [facility] [address] [place] [address] Carmen Artis FNP-C Essential hypertension (Primary Dx); Panlobular emphysema (HCC); Hypomagnesemia from Last 3 Months Immunizations Immunization Administration [...] 04/2025 Smokeless Tobacco: Never Tobacco Cessation:Counseling Given: Not Answered Alcohol Use Standard Drinks/Week Comments Yes 1 [...] were you homeless or living in a detention (including now)? No 05/19/2025 Hunger Vital Sign [...] were you homeless or living in a detention (including now)? No 08/09/2025 [facility] Utilities Answer Date Recorded In the [...] Sign Reading Time Taken Comments Blood Pressure 135/69 08/09/2025 4:01 PM EYELET ROW MARKER Pulse 104 08/09/2025 4:01 PM EYELET ROW MARKER Temperature 36.4 C (97.6 F) 07/27/2025 1:17 PM EYELET ROW MARKER Respiratory Rate 16 05/15/2019 11:24 AM CDT Oxygen Saturation 96% 08/09/2025 4:01 PM EYELET ROW MARKER Inhaled Oxygen Concentration - - Weight 54 kg (119 lb) 08/09/2025 4:01 PM EYELET ROW MARKER Height 182.9 cm (6') 08/09/2025 4:01 PM EYELET ROW MARKER Body Mass Index 16.14 08/09/2025 4:01 PM EYELET ROW MARKER Plan of Treatment Upcoming Encounters Date Type Department Care Team (Late st Contact Info) Description 11/08/2025 9:45 AM EYELET ROW MARKER Office Visit [facility] - [facility] [address] [place] [address] Virgil Beaulieu MD [address] [place] [address] Health Maintenance Due Date Last Done Comments [...] Procedure Name Priority Date/Time Associated Diagnosis Comments CT ABDOMEN PELVIS WO CONTRAST Routine 08/09/2025 3:53 PM EYELET ROW MARKER Malignant neoplasm metastatic to liver (HCC) Malignant ascites (HCC) CULTURE-URINE Routine 08/09/2025 3:19 PM EYELET ROW MARKER URINALYSIS, REFLEX CULTURE Routine 08/09/2025 3:17 PM EYELET ROW MARKER Essential hypertension Hyponatremia Indwelling Cuadra catheter present SODIUM, URINE, RANDOM Routine 08/09/2025 3:03 PM EYELET ROW MARKER Hyponatremia GFR FOR ADULT Routine 08/09/2025 3:02 PM EYELET ROW MARKER BILL CBC AUTO DIFF Routine 08/09/2025 3: 02 PM EYELET ROW MARKER FIBRINOGEN Routine 08/09/2025 3:02 PM EYELET ROW MARKER 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) PROTIME/INR Routine 08/09/2025 3:02 PM EYELET ROW MARKER 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) PHOSPHORUS Routine 08/09/2025 3:02 PM EYELET ROW MARKER Panlobular emphysema (HCC) Essential hypertension Hypomagnesemia Hyponatremia 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) MAGNESIUM Routine 08/09/2025 3:02 PM EYELET ROW MARKER Panlobular emphysema (HCC) Essential hypertension Hypomagnesemia Hyponatremia 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) AMMONIA Routine 08/09/2025 3:02 PM EYELET ROW MARKER Panlobular emphysema (HCC) Essential hypertension Hypomagnesemia Hyponatremia 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) GAMMA-GLUTAMYL TRANSFERASE (GGTP) Routine 08/09/2025 3:02 PM EYELET ROW MARKER Panlobular emphysema (HCC) Essential hypertension Hypomagnesemia Hyponatremia 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) COMPREHENSIVE METABOLIC PANEL Routine 08/09/2025 3:02 PM EYELET ROW MARKER Panlobular emphysema (HCC) Essential hypertension Hypomagnesemia Hyponatremia 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) CBC WITH DIFFERENTIAL Routine 08/09/2025 3:02 PM EYELET ROW MARKER Panlobular emphysema (HCC) Essential hypertension Hypomagnesemia Hyponatremia 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) VITAMIN B12 Routine 07/27/2025 3:06 PM EYELET ROW MARKER FOLATE Routine 07/27/2025 3:06 PM EYELET ROW MARKER BILL CBC AUTO DIFF Routine 07/27/2025 2: 50 PM EYELET ROW MARKER GFR FOR ADULT Routine 07/27/2025 2:50 PM EYELET ROW MARKER B NATRIURETIC PEPTIDE Routine 07/27/2025 2:50 PM EYELET ROW MARKER Hospital discharge follow-up Leg swelling 25-HYDROXYVITAMIN D Routine 07/27/2025 2 :50 PM EYELET ROW MARKER Hospital discharge follow-up Vitamin D deficiency TSH, 3RD GENERATION Routine 07/27/2025 2 :50 PM EYELET ROW MARKER Hospital discharge follow-up MAGNESIUM Routine 07/27/2025 2:50 PM EYELET ROW MARKER Hospital discharge follow-up COMPREHENSIVE METABOLIC PANEL Routine 07/27/2025 2:50 PM EYELET ROW MARKER Hospital discharge follow-up Leg swelling CBC WITH DIFFERENTIAL Routine 07/27/2025 2:50 PM EYELET ROW MARKER Hospital discharge follow-up Leg swelling GFR FOR [...] CDT Essential hypertension Panlobular emphysema (HCC) Hypomagnesemia LOWER ENDOSCOPY Routine 12/02/2018 11:27 AM CDT Colon cancer screening from Last 3 Months or Most Recently Relevant to Health Maintenance Results * CT Abdomen pelvis withOUT contrast (08/09/2025 3:53 PM EYELET ROW MARKER) Anatomical Region Laterality Modality Abdomen, Pelvis N/A Computed Tomogra phy Narrative 08/13/2025 12:46 PM EYELET ROW MARKER EXAM: CT OF THE ABDOMEN AND PELVIS WITHOUT CONTRAST. TECHNIQUE: CT of the abdomen and pelvis was performed without the use of contrast. Multiplanar reformats were performed. HISTORY: Metastatic disease. Malignant ascites. Peritonitis or perforation suspected. COMPARISON: CT chest abdomen pelvis 05/09/2025. FINDINGS: Evaluation of solid organs and blood vessels is suboptimal without the benefit of contrast. Imaged lower thorax: Stable scarring in the lingula. Emphysema. Liver: Multiple metastatic masses to the liver have increased in size since the previous exam. For instance, 13 cm mass in the left superior liver image 19 previously measured 8.5 cm, and 9.8 cm mass in the inferior left liver measured 6.4 cm. Gallbladder/Bile Ducts: No biliary dilation. Gallbladder is unremarkable. Spleen: Calcified granulomas in the spleen. Pancreas: Unremarkable. Adrenals: Stable adrenal thickening. Kidneys/Ureters: Bilateral nephrolithiasis, stones measure up to 1.0 cm at the right lower pole and 0.4 cm of the left lower pole. No hydronephrosis or stone in the ureters. Bowel/mesentery/peritoneum: Small hiatal hernia. Normal appendix. No free air or ascites. Retroperitoneum/vessels: No aortic aneurysm. Multifocal atherosclerotic calcifications. Pelvis: Bladder decompressed by Cuadra catheter. Bladder stones measure up to 1.3 cm. Bones/body wall: New sclerotic lesion in the left iliac bone consistent with metastases. Enlarging lytic lesion in the right iliac bone. Multiloculated spondylosis. IMPRESSION: Worsening metastatic disease in the liver and pelvis. Bilateral nephrolithiasis. Calcified atherosclerosis. Small hiatal hernia. Emphysema. All CT scans are performed using dose optimization techniques as appropriate to the performed exam and include at least one of the following: Automated exposure control, adjustment of the mA and/or kV according to size, and the use of iterative reconstruction technique. Procedure Note Dirk Gonsalez MD - 08/13/2025 EXAM: CT OF THE ABDOMEN AND PELVIS WITHOUT CONTRAST. TECHNIQUE: CT of the abdomen and pelvis was performed without the use ofcontrast. Multiplanar reformats were performed. HISTORY: Metastatic disease. Malignant ascites. Peritonitis orperforation suspected. COMPARISON: CT chest abdomen pelvis 05/09/2025. FINDINGS: Evaluation of solid organs and blood vessels is suboptimal without thebenefit of contrast. Imaged lower thorax: Stable scarring in the lingula. Emphysema. Liver: Multiple metastatic masses to the liver have increased in sizesince the previous exam. For instance, 13 cm mass in the left superiorliver image 19 previously measured 8.5 cm, and 9.8 cm mass in the inferiorleft liver measured 6.4 cm. Gallbladder/Bile Ducts: No biliary dilation. Gallbladder isunremarkable. Spleen: Calcified granulomas in the spleen. Pancreas: Unremarkable. Adrenals: Stable adrenal thickening. Kidneys/Ureters: Bilateral nephrolithiasis, stones measure up to 1.0 cm atthe right lower pole and 0.4 cm of the left lower pole. No hydronephrosisor stone in the ureters. Bowel/mesentery/peritoneum: Small hiatal hernia. Normal appendix. No freeair or ascites. Retroperitoneum/vessels: No aortic aneurysm. Multifocal atheroscleroticcalcifications. Pelvis: Bladder decompressed by Cuadra catheter. Bladder stones measure upto 1.3 cm. Bones/body wall: New sclerotic lesion in the left iliac bone consistentwith metastases. Enlarging lytic lesion in the right iliac bone.Multiloculated spondylosis. IMPRESSION: Worsening metastatic disease in the liver and pelvis. Bilateral nephrolithiasis. Calcified atherosclerosis. Small hiatal hernia. Emphysema. All CT scans are performed using dose optimization techniques asappropriate to the performed exam and include at least one of the following: Automated exposure control, adjustment ofthe mA and/or kV according to size, and the use of iterativereconstruction technique. Carmen Artis SHIPFITTER HELPER-C [facility] ORDERABLES Final R esult * Culture-urine (08/09/2025 3:19 PM EYELET ROW MARKER) Culture Urine Negative (<5000 cfu/ml) after 14 hour/s of incubation. Negative (<5,000 cfu/ml ) at 48 hours 08/11/2025 9:12 AM EYELET ROW MARKER [facility] Urine 08/09/2025 3:19 PM EYELET ROW MARKER 08/09/2025 8:29 PM EYELET ROW MARKER Narrative [facility] - 08/11/2025 9:12 AM EYELET ROW MARKER If Cuadra catheter has been in place 72 hours or greater, the Cuadra should be removed and changed to a new catheter prior to collecting urine culture specimen. EXCEPTION: If this Cuadra is being managed by Urology, DO NOT remove Cuadra. Get specimen from current Cuadra catheter already in place. us Carmen Artis SHIPFITTER HELPER-C LAB MICROBIOLOGY - GENERA L ORDERABLES Final Result [facility] [address] [address] * (ABNORMAL) Urinalysis w/micro, reflex culture (08/09/2025 3:17 PM EYELET ROW MARKER) Urine color Yellow NA 08/09/2025 3:19 PM EYELET ROW MARKER [facility] Urine appearance Cloudy(A) Clear NA 08/09/20 25 3:19 PM EYELET ROW MARKER [facility] Urine specific gravity 1.020 1.005 - 1.030 NA 08/09/2025 3:19 PM EYELET ROW MARKER [facility] Urine pH 5.0(L) 5.5 - 7.5 NA 08/09/2025 3:19 PM EYELET ROW MARKER [facility] LEUKOCYTES ESTERASE Small(A) Negative {cells}/uL 08/09/2025 3:19 PM EYELET ROW MARKER [facility] Urine nitrites Negative Negative NA 3:19 PM EYELET ROW MARKER [facility] Urine protein Negative <=10 mg/dL 08/09/2025 3:19 PM EYELET ROW MARKER [facility] Urine glucose Negative Negative mg/dL 08/09/2025 3:19 PM EYELET ROW MARKER [facility] Urine ketones Negative Negative mg/dL 08/09/2025 3:19 PM EYELET ROW MARKER [facility] Urine urobilinogen 0.2 0.2 - 1.0 mg/dL 08/09/2025 3:19 PM EYELET ROW MARKER [facility] Urine bilirubin Negative Negative mg/dL 08/09/2025 3:19 PM EYELET ROW MARKER [facility] BLOOD Moderate(A) Negative mg/dL 08/09/2025 3:19 PM EYELET ROW MARKER [facility] WBC 21-30(A) 0 - 3 {#}/[HPF] 08/09/2025 3:19 PM EYELET ROW MARKER [facility] RBC 31-50(A) 0 - 3 {#}/[HPF] 08/09/2025 3:19 PM EYELET ROW MARKER [facility] Bacteria 1+(A) <1+ {#}/[HPF] 08/09/2025 3:19 PM EYELET ROW MARKER [facility] WBC Clumps Occasional( A) None {#}/[HPF] 08/09/2025 3:19 PM EYELET ROW MARKER [facility] Squamous Epithelial 0-5 Only squamous {#}/[LPF] 08/09/2025 3:19 PM EYELET ROW MARKER [facility] Culture ORDERED NA 08/09/2025 3:19 PM EYELET ROW MARKER [facility] Urine Spot urine specimen / Unknown 08/09/2025 3:17 PM EYELET ROW MARKER 08/09/2025 3:17 PM EYELET ROW MARKER Narrative [facility] - 08/09/2025 3:19 PM EYELET ROW MARKER If Cuadra catheter has been in place 72 hours or greater, the Cuadra should be removed and changed to a new catheter prior to collecting urine culture specimen. EXCEPTION: If this Cuadra is being managed by Urology, DO NOT remove Cuadra. Get specimen from current Cuadra catheter already in place. Canaan Belkys [employer] LAB MICROBIOLOGY - GENERA L ORDERABLES Final Result Performing Organization Address City/[facility]/ZIP Co de Phone Number [facility] [address] [facility], [facility] [address] [place] [address], * Sodium, urine, random Specimen Source: Urine, Clean Catch (08/09/2025 3:03 PM EYELET ROW MARKER) Urine Sodium Random 69 mmol/L 08/09/2025 9:08 PM EYELET ROW MARKER [facility] [employer] LAB Comment:Reference Ranges Not Established Urine Urine specimen obtained by clean catch procedure / Unknown 08/09/2025 3:03 PM EYELET ROW MARKER 08/09/2025 8:27 PM EYELET ROW MARKER [employer] LAB URINE ORDERABLES Cherrie l Result [facility] [address] [place] [address] * Bill CBC auto diff (08/09/2025 3:02 PM EYELET ROW MARKER) Only the most recent of3 resultswithin the time period is included. 08/09/2025 3:02 PM EYELET ROW MARKER 08/09/2025 3:02 PM EYELET ROW MARKER us Carmen HARDINGP-C LAB BLOOD ORDERABLES Cherrie l Result [facility] [address] [place] [address], * GFR for Adult (08/09/2025 3:02 PM EYELET ROW MARKER) Only the most recent of3 resultswithin the time period is included. GFR for adult >60 mL/min/1.7 3m2 08/09/2025 3:35 PM EYELET ROW MARKER [facility] Comment: This estimated glomerular filtration rate (eGFR) was calculated using the CKD-EPI Creatinine Equation 2020, which does not use a race coefficient. eGFR is not reliable for patients with rapidly changing creatinine levels, extremes in muscle mass and body size, or altered diet patterns. Values should be interpreted in the context of the patient's full clinical presentation. 08/09/2025 3:02 PM EYELET ROW MARKER 08/09/2025 3:02 PM EYELET ROW MARKER us Carmen VIDES-C LAB BLOOD ORDERABLES Cherrie l Result [facility] [address] [facility], [address] [place] [address], * (ABNORMAL) Gamma-Glutamyl Transferase (GGTP) Once (08/09/2025 3:02 PM EYELET ROW MARKER) Gamma-glutamyl transpeptidase 374(H) 11 - 51 U/L 08/09/2025 9:33 PM EYELET ROW MARKER [facility] Blood Venous blood / Unknown 08/09/2025 3:02 PM EYELET ROW MARKER 08/09/2025 8:55 PM EYELET ROW MARKER us Morales Belkys [employer] LAB BLOOD ORDERABLES Cherrie l Result [facility] [address] [place] [address] * (ABNORMAL) Protime/INR Once (08/09/2025 3:02 PM EYELET ROW MARKER) Prothrombin Time 11.7(L) 11.9 - 14.4 s 08/09/2025 3:23 PM EYELET ROW MARKER [facility] Comment: Result within normal limits. - - - - - - - - - - - - - - - INR 0.82 NA 08/09/2025 3:23 PM EYELET ROW MARKER [facility] Comment: Coumadin Therapy: INR: 1.0-2.1 non coumadin therapy INR: 2.0-3.0 theraputic Blood Venous blood / Unknown 08/09/2025 3:02 PM EYELET ROW MARKER 08/09/2025 3:02 PM EYELET ROW MARKER [facility] BLOOD ORDERABLES Cherrie l Result [facility] [address] [facility], [address] [place] [address], [place] [phone] * (ABNORMAL) Fibrinogen Once (08/09/2025 3:02 PM EYELET ROW MARKER) Fibrinogen 545(H) 200 - 450 mg/dL 08/09/2025 8:59 PM EYELET ROW MARKER [facility] Blood Venous blood / Unknown 08/09/2025 3:02 PM EYELET ROW MARKER 08/09/2025 8:33 PM EYELET ROW MARKER [employer] LAB BLOOD ORDERABLES Cherrie l Result [facility] [address] [place] [address] * (ABNORMAL) CBC with Differential Once (08/09/2025 3:02 PM EYELET ROW MARKER) Only the most recent of3 resultswithin the time period is included. WBC 13.76(H) 4.10 - 10.90 10*3/uL 08/09/2025 3:13 PM EYELET ROW MARKER [facility] RBC 2.88(L) 4.26 - 5.70 10*6/uL 08/09/2025 3:13 PM EYELET ROW MARKER [facility] Hemoglobin 9.6(L) 12.4 - 17.5 g/dL 08/09/2025 3:13 PM EYELET ROW MARKER [facility] Hematocrit 30.2(L) 36.0 - 52.0 % 08/09/2025 3:13 PM EYELET ROW MARKER [facility] MCV 104.9(H) 83.5 - 100.2 fL 08/09/2025 3:13 PM EYELET ROW MARKER [facility] MCH 33.3 27.0 - 35.0 pg 08/09/2025 3:13 PM EYELET ROW MARKER [facility] MCHC 31.8 31.0 - 37.0 g/dL 08/09/2025 3:13 PM EYELET ROW MARKER [facility] Platelet Count 405(H) 135 - 400 10*3 08/09/2025 3:13 PM EYELET ROW MARKER [facility] RDW CV 17.1(H) 10.6 - 14.3 % 08/09/2025 3:13 PM EYELET ROW MARKER [facility] MPV 9.7 6.7 - 12.0 fL 08/09/2025 3:13 PM EYELET ROW MARKER [facility] Neutrophils 83.80 40.00 - 96.00 % 08/09/2025 3:13 PM EYELET ROW MARKER [facility] Lymphocytes 6.80 0.00 - 50.00 % 08/09/2025 3:13 PM EYELET ROW MARKER [facility] Monocytes 7.60 0.00 - 20.00 % 08/09/2025 3:13 PM EYELET ROW MARKER [facility] Eosinophils 1.40 0.00 - 15.00 % 08/09/2025 3:13 PM EYELET ROW MARKER [facility] Basophils 0.30 0.00 - 3.00 % 08/09/2025 3:13 PM EYELET ROW MARKER [facility] Absolute Neutrophils 11.52(H) 2.04 - 6.90 10*3/uL 08/09/2025 3:13 PM EYELET ROW MARKER [facility] Absolute Lymphocytes 0.94 0.05 - 5.01 10*3/uL 08/09/2025 3:13 PM EYELET ROW MARKER [facility] Absolute Monocytes 1.05 0.05 - 2.04 10*3/uL 08/09/2025 3:13 PM EYELET ROW MARKER [facility] Absolute Eosinophils 0.19 0.00 - 0.50 10*3/uL 08/09/2025 3:13 PM EYELET ROW MARKER [facility] Absolute Basophils 0.04 0.00 - 0.31 10*3/uL 08/09/2025 3:13 PM EYELET ROW MARKER [facility] Immature Granulocytes 0.10 0.00 - 3.00 % 08/09/2025 3:13 PM EYELET ROW MARKER [facility] Blood Venous blood / Unknown 08/09/2025 3:02 PM EYELET ROW MARKER 08/09/2025 3:02 PM EYELET ROW MARKER us Carmen Rizvi Artis SHIPFITTER HELPER-C LAB BLOOD ORDERABLES Cherrie l Result [facility] [address] [facility], [address] [place] [address], [place] [phone] * Phosphorus Once (08/09/2025 3:02 PM EYELET ROW MARKER) Phosphorus 4.5 2.4 - 4.6 mg/dL 08/09/2025 3:35 PM EYELET ROW MARKER [facility] Blood Venous blood / Unknown 08/09/2025 3:02 PM EYELET ROW MARKER 08/09/2025 3:02 PM EYELET ROW MARKER Carmen Rizvi My [employer] LAB BLOOD ORDERABLES Cherrie l Result [facility] [address] [facility], [address] [place] [address], [place] [phone] * Magnesium Once (08/09/2025 3:02 PM EYELET ROW MARKER) Only the most recent of3 resultswithin the time period is included. Magnesium 1.9 1.6 - 3.0 mg/dL 08/09/2025 3:35 PM EYELET ROW MARKER [facility] Blood Venous blood / Unknown 08/09/2025 3:02 PM EYELET ROW MARKER 08/09/2025 3:02 PM EYELET ROW MARKER Carmen Artis SHIPFITTER HELPER-C LAB BLOOD ORDERABLES Cherrie l Result [facility] [address] [facility], [address] [place] [address], [place] [phone] * Ammonia Once (08/09/2025 3:02 PM EYELET ROW MARKER) Ammonia 43 16 - 60 umol/L 08/09/2025 9:02 PM EYELET ROW MARKER [facility] Blood Venous blood / Unknown 08/09/2025 3:02 PM EYELET ROW MARKER 08/09/2025 8:33 PM EYELET ROW MARKER Carmen Artis SHIPFITTER HELPER-C LAB BLOOD ORDERABLES Cherrie l Result [facility] [address] [place] [address] * (ABNORMAL) Comprehensive metabolic panel Once (08/09/2025 3:02 PM EYELET ROW MARKER) Only the most recent of3 resultswithin the time period is included. Sodium 138 131 - 145 meq/L 08/09/2025 3:35 PM EYELET ROW MARKER [facility] Potassium 5.3(H) 3.3 - 5.0 meq/L 08/09/2025 3:35 PM EYELET ROW MARKER [facility] Chloride 93(L) 96 - 111 meq/L 08/09/2025 3:35 PM EYELET ROW MARKER [facility] CO2 34(H) 20 - 31 meq/L 08/09/2025 3:35 PM EYELET ROW MARKER [facility] BUN 23 5 - 23 mg/dL 08/09/2025 3:35 PM EYELET ROW MARKER [facility] Creatinine 0.90 0.60 - 1.70 mg/dL 08/09/2025 3:35 PM EYELET ROW MARKER [facility] Glucose 116(H) 72 - 113 mg/dL 08/09/2025 3:35 PM EYELET ROW MARKER [facility] Calcium 10.7(H) 8.2 - 10.2 mg/dL 08/09/2025 3:35 PM EYELET ROW MARKER [facility] CALCIUM, CORRECTED 11.0(H) 8.2 - 10.2 mg/dL 08/09/2025 3:35 PM EYELET ROW MARKER [facility] Comment:Calcium corrected fo r Albumin of less than 4.0. Bilirubin Total 0.2 0.1 - 0.9 mg/dL 08/09/2025 3:35 PM EYELET ROW MARKER [facility] Alkaline Phosphatase 186(H) 38 - 137 U/L 08/09/2025 3:35 PM EYELET ROW MARKER [facility] ALT (SGPT) 74(H) 0 - 40 U/L 08/09/2025 3:35 PM EYELET ROW MARKER [facility] AST (SGOT) 63(H) 8 - 35 U/L 08/09/2025 3:35 PM EYELET ROW MARKER [facility] Total Protein 6.8 6.1 - 8.2 g/dL 08/09/2025 3:35 PM EYELET ROW MARKER [facility] Albumin 3.6(L) 3.7 - 5.1 g/dL 08/09/2025 3:35 PM EYELET ROW MARKER [facility] Anion Gap 11 8 - 16 NA 08/09/2025 3:35 PM EYELET ROW MARKER [facility] Alb/Glob Ratio Calc 1.1 1.1 - 2.2 g/dL 08/09/2025 3:35 PM EYELET ROW MARKER [facility] BUN/Creatinine Ratio 26 mg/dL 08/09/2025 3:35 PM EYELET ROW MARKER [facility] Blood Venous blood / Unknown 08/09/2025 3:02 PM EYELET ROW MARKER 08/09/2025 3:02 PM EYELET ROW MARKER Carmen Artis SHIPFITTER HELPER-C LAB BLOOD ORDERABLES Cherrie l Result [facility] [address] [facility], [address] [place] [address], [place] [phone] * (ABNORMAL) Vitamin B12 (07/27/2025 3:06 PM EYELET ROW MARKER) Vitamin B12 >2,000(H) 200 - 978 pg/mL 07/27/2025 3:38 PM EYELET ROW MARKER [facility] 07/27/2025 3:06 PM EYELET ROW MARKER 07/27/2025 3:06 PM EYELET ROW MARKER Elizabeth Flor SHIPFITTER HELPER LAB BLOOD ORDERABLES Final Result [facility] [address] [facility], [address] [place] [address], [place] [phone] * (ABNORMAL) Folate (07/27/2025 3:06 PM EYELET ROW MARKER) [facility] Folate >20.0(H) 4.0 - 15.0 ng/mL 07/27/2025 9:31 PM EYELET ROW MARKER [facility] 07/27/2025 3:06 PM EYELET ROW MARKER 07/27/2025 8:56 PM EYELET ROW MARKER Elizabeth Flor [facility] LAB BLOOD ORDERABLES Final Result Performing Organization Address City/[facility]/ZIP Co de Phone Number [facility] [address] [place] [address] * B Natriuretic Peptide Once (07/27/2025 2:50 PM EYELET ROW MARKER) Only the most recent of2 resultswithin the time period is included. [facility] B NATRIURETIC PEPTIDE 48.0 0.0 - 100.0 pg/mL 07/27/2025 3:12 PM EYELET ROW MARKER [facility] Blood Venous blood / Unknown 07/27/2025 2:50 PM EYELET ROW MARKER 07/27/2025 2:50 PM EYELET ROW MARKER Elizabeth Flor [facility] LAB BLOOD ORDERABLES Final Result [facility] [address] [facility], [address] [place] [address], [place] [phone] * 25-Hydroxyvitamin D Once (07/27/2025 2:50 PM EYELET ROW MARKER) [facility] Vitamin D 37.1 30.0 - 60.0 ng/mL 07/27/2025 3:34 PM EYELET ROW MARKER [facility] Blood Venous blood / Unknown 07/27/2025 2:50 PM EYELET ROW MARKER 07/27/2025 2:50 PM EYELET ROW MARKER Elizabeth Flor SHIPFITTER HELPER LAB BLOOD ORDERABLES Final Result Performing Organization Address [facility]/ZIP Co de Phone Number [facility] [address] [facility], [address] [place] [address], [place] [phone] * TSH, 3rd generation Once (07/27/2025 2:50 PM EYELET ROW MARKER) TSH, 3rd Gen 2.070 0.270 - 4.670 u[IU]/mL 07/27/2025 3:51 PM EYELET ROW MARKER [facility] Blood Venous blood / Unknown 07/27/2025 2:50 PM EYELET ROW MARKER 07/27/2025 2:50 PM EYELET ROW MARKER Elizabeth Flor SHIPFITTER HELPER LAB BLOOD ORDERABLES Final Result Performing Organization Address [facility] Co de Phone Number [address], [address] [place] [address], [place] [phone] * Colonoscopy; External (12/02/2018 11:27 AM CDT) Virgil Beaulieu MD PROCEDURE/MINOR SURGICAL PERF ORMABLES Final Result from Last 3 Months or Most Recently Relevant to Health Maintenance Insurance [facility] MEDICARE ADVANTAGE Care Teams Material Assembler Relationship Specialty Start Date End Date Virgil Beaulieu MD [address] [address] [address] PCP - General Internal Medicine 07/31/18
--- OUTSIDE RECORDS SUMMARY | 2025-08-25 16:30 | XMS_ITS | Encounter Summary ---
Author Organization [facility] Address [address] [place] [address] Care Team Providers Care Inspector Insulation Name Role Phone Virgil Beaulieu MD Primary Care Provider [phone] Encounter Details Date Type Department Care Team (Late st Contact Info) Description 06/06/2025 Orders Only [facility] [place] - Primary Care [address] [place] [address] Carmen Artis, TELEVISION REPAIR TEACHER-C [address] [facility] [address] [place] [address] Malignant neoplasm of overlapping sites of lung, unspecified laterality (HCC) Social History Tobacco Use Types Packs/Day Years Used Date Smoking Tobacco: Every Day Cigarettes Smokeless Tobacco: Never Alcohol Use Standard Drinks/Week Comments Yes 1 (1 standard drink = 0.6 oz pur e alcohol) per day [facility] Utilities Answer Date Recorded In the past 12 months has [employer] electric, gas, oil, or water company threatened [...] any time in the past 12 m [facility], were you homeless or living in a senior care (including now)? No 05/19/2025 Sex and Gender Information Value Date Recorded Sex Assigned at Not on file Legal Sex Male 12:56 PM CDT Gender Identity Not on file Sexual Orientation Not on file documented as of this encounter Plan of Treatment Upcoming Encounters Date Type Department Care Team (Late st Contact Info) Description 11/08/2025 9:45 AM CHASSIS DRIVER Office Visit [facility] [place] - Primary Care [address] [place] [address] Virgil Beaulieu MD [address] [place] [address] documented as of this encounter Visit Diagnoses Diagnosis Malignant neoplasm of overlapping sites of lung, unspecified laterality (HCC) documented in this encounter Additional Health Concerns Health Status Noted Date Alive and well 07/02/2024 Assessment Noted Time PHQ-9 Depression Total Score: 0 11/19/19 25 12:46 PM CHASSIS DRIVER A fall risk assessment has been complete d for the patient 06/02/2025 5:36 PM CDT documented as of this encounter Care Teams Inspector Insulation Relationship Specialty Start Date End Date Virgil Beaulieu MD [address] [place] [address] PCP - General Internal Medicine 07/31/18 documented as of this encounter
--- OUTSIDE RECORDS SUMMARY | 2025-08-25 16:30 | XMS_ITS ---
Author Organization [facility] Address [address] [facility] [place] [address] Care Team Providers Care Mri Tech Name Role Phone Virgil Beaulieu MD Primary Care Provider [phone] Active Problems Problem Noted Date Diagnosed Date [...] abuse 04/05/2025 Shortness of breath 04/05/2025 Other nursing home (current) drug therapy Panlobular emphysema 11/18/2018 Current [...]
--- OUTSIDE RECORDS SUMMARY | 2025-08-25 16:30 | XMS_ITS | Encounter Summary ---
Author Organization [facility] Address [address] [place] [address] Care Team Providers Care Train Station Agent Name Role Phone Virgil Beaulieu MD Primary Care Provider [phone] Encounter Details Date Type Department Care Team (Late st Contact Info) Description 07/09/2024 Orders Only [facility] [place] - Primary Care [address] [facility] [address] [place] [address] Alysha Perkins Mixed hyperlipidemia (Primary Dx) [...] st Contact Info) Description 11/08/2025 9:45 AM CONCRETE TESTER Office Visit [facility] [place] - Primary Care [address] [place] [address] Virgil Beaulieu MD [address] [facility] [address] [place] [address] documented as of this encounter Visit Diagnoses Diagnosis Mixed hyperlipidemia- Primary documented in this encounter Additional Health Concerns Health Status Noted Date Alive and well 07/02/2024 Assessment Noted Time PHQ-9 Depression Total Score: 0 09/24/19 20 2:47 PM CONCRETE TESTER A fall risk assessment has been complete d for the patient 07/02/2024 1:54 PM CDT documented as of this encounter Care Teams Train Station Agent Relationship Specialty Start Date End Date Virgil Beaulieu MD [address] [address] PCP - General Internal Medicine 07/31/18 documented as of this encounter
--- OUTSIDE RECORDS SUMMARY | 2025-08-25 16:30 | XMS_ITS ---
Author Organization [facility] Address [address] [place] [address] Care Team Providers Care Electronic Publishing Specialist Name Role Phone Carmen Artis Primary Care [...] mets. Plan -Consult rad onc- outpatient evaluation -Onward q4 h prn -Oncology started carbo/etopo chemotherapy [...] mets. Plan -Consult rad onc- outpatient evaluation -Onward q4 h prn -Oncology started carbo/etopo chemotherapy [...] mets. Plan -Consult rad onc- outpatient evaluation -Onward q4 h prn -Oncology started carbo/etopo chemotherapy [...] for progressing/new mets. Plan Consult rad onc Onward q4 h prn Oncology to start carbo/etopo [...] mets. Plan -Consult rad onc- outpatient evaluation -Onward q4 h prn -Oncology started carbo/etopo chemotherapy [...] mets. Plan -Consult rad onc- outpatient evaluation -Onward q4 h prn -Oncology started carbo/etopo chemotherapy [...] mets. Plan -Consult rad onc- outpatient evaluation -Onward q4 h prn -Oncology started carbo/etopo chemotherapy [...] for progressing/new mets. Plan Consult rad onc Onward q4 h prn Oncology to start carbo/etopo [...] repeat MRI in 1 month. Plan: bMRI Onward q4 h prn Assessment & Plan (05/25/2025 [...] and currently on antibiotics. Evaluated previously by COMPOSITION FLOOR SETTER who noted abnormal swallowing during last admission. Family noted possible repeat aspiration event last night. Will continue previously prescribed abx to complete 1 week course. COMPOSITION FLOOR SETTER performed MBS which patient passed and is on regular diet. Plan: -Completed course of clindamycin 300 mg TID and doxycyline 100 BID Assessment & Plan (05/29/2025 7:14 AM CDT): Has had multiple episodes of aspiration pneumonia over the last month and currently on antibiotics. Evaluated previously by COMPOSITION FLOOR SETTER who noted abnormal swallowing during last admission. Family noted possible repeat aspiration event last night. Will continue previously prescribed abx to complete 1 week course. COMPOSITION FLOOR SETTER performed MBS which patient passed and is on regular diet. Plan: -Completed course of clindamycin 300 mg TID and doxycyline 100 BID Assessment & Plan (05/28/2025 11:53 AM CDT): Has had multiple episodes of aspiration pneumonia over the last month and currently on antibiotics. Evaluated previously by COMPOSITION FLOOR SETTER who noted abnormal swallowing during last admission. Family noted possible repeat aspiration event last night. Will continue previously prescribed abx to complete 1 week course. COMPOSITION FLOOR SETTER performed MBS which patient passed and is on regular diet. Plan: -Completed course of clindamycin 300 mg TID and doxycyline 100 BID Assessment & Plan (05/27/2025 1:09 PM CDT): Has had multiple episodes of aspiration pneumonia over the last month and currently on antibiotics. Evaluated previously by COMPOSITION FLOOR SETTER who noted abnormal swallowing during last admission. Family noted possible repeat aspiration event last night. Will continue previously prescribed abx to complete 1 week course. COMPOSITION FLOOR SETTER performed MBS which patient passed and is on regular diet. Plan: Completed course of clindamycin 300 mg TID and doxycyline 100 BID Assessment & Plan (05/26/2025 10:52 AM CDT): Has had multiple episodes of aspiration pneumonia over the last month and currently on antibiotics. Evaluated previously by COMPOSITION FLOOR SETTER who noted abnormal swallowing during last admission. Family noted possible repeat aspiration event last night. Will continue previously prescribed abx to complete 1 week course and consult COMPOSITION FLOOR SETTER Plan: COMPOSITION FLOOR SETTER Continue clindamycin 300 mg TID, doxycyline 100 BID x1 day Assessment & Plan (05/25/2025 8:53 PM CDT): Has had multiple episodes of aspiration pneumonia over the last month and currently on antibiotics. Evaluated previously by COMPOSITION FLOOR SETTER who noted abnormal swallowing during last admission. Family noted possible repeat aspiration event last night. Will continue previously prescribed abx to complete 1 week course and consult COMPOSITION FLOOR SETTER - COMPOSITION FLOOR SETTER - Continue clindamycin 300 mg TID, doxycyline 100 BID x1 day Assessment & Plan (04/28/2025 7:44 AM CDT): Seen on CT A/P on 04/12 with worsening consolidations compared to previous CT. Started on abx for empiric treatment. - S/p Ceftriaxone (04/12 - 04/17), azithromycin (04/12 - 04/14) - COMPOSITION FLOOR SETTER recd post modified barium swallow on 04/21 - Reg diet, pills crushed in puree Assessment & Plan (04/27/2025 1:03 PM CDT): Seen on CT A/P on 04/12 with worsening consolidations compared to previous CT. Started on abx for empiric treatment. - S/p Ceftriaxone (04/12 - 04/17), azithromycin (04/12 - 04/14) - COMPOSITION FLOOR SETTER recd post modified barium swallow on 04/21 - Reg diet, pills crushed in puree Assessment & Plan (04/26/2025 7:13 AM CDT): Seen on CT A/P on 04/12 with worsening consolidations compared to previous CT. Started on abx for empiric treatment. - S/p Ceftriaxone (04/12 - 04/17), azithromycin (04/12 - 04/14) - COMPOSITION FLOOR SETTER recd post modified barium swallow on 04/21 - Reg diet, pills crushed in puree Assessment & Plan (04/25/2025 9:23 AM CDT): Seen on CT A/P on 04/12 with worsening consolidations compared to previous CT. Started on abx for empiric treatment. - S/p Ceftriaxone (04/12 - 04/17), azithromycin (04/12 - 04/14) - COMPOSITION FLOOR SETTER recd post modified barium swallow on 04/21 [...] LAMA/LABA, albuterol prn -Suctioning q4, [facility] [place] [facility] , awaiting pathology Assessment & [...] LAMA/LABA, albuterol prn -Suctioning q4, [facility] - [place] [facility] , awaiting pathology Assessment & [...] LAMA/LABA, albuterol prn -Suctioning q4, [facility] - [place] [facility] , awaiting pathology Assessment & [...] DuoNebs p.r.n., start LAMA/LABA, albuterol prn - [place] [facility] Assessment & Plan (04/08/2025 8:17 [...] DuoNebs p.r.n., start LAMA/LABA, albuterol prn - [place] [facility] Assessment & Plan (04/07/2025 5:48 [...] able - DuoNebs p.r.n., start LAMA/LABA - [place] [facility] on arrived floor Urinary retention [...] LAMA/LABA, albuterol prn -Suctioning q4, [facility] - [place] [facility] , awaiting pathology Assessment & [...] p.r.n., start LAMA/LABA, albuterol prn -[facility] [place] [facility] , awaiting pathology Assessment & [...] LAMA/LABA, albuterol prn -Suctioning q4, [facility] - [place] [facility] , awaiting pathology Assessment & [...] DuoNebs p.r.n., start LAMA/LABA, albuterol prn - [place] [facility] Assessment & Plan (04/08/2025 8:17 [...] DuoNebs p.r.n., start LAMA/LABA, albuterol prn - [place] [facility] Assessment & Plan (04/07/2025 5:48 [...] able - DuoNebs p.r.n., start LAMA/LABA - [place] [facility] on arrived floor Malignant neoplasm [...] LAMA/LABA, albuterol prn -Suctioning q4, [facility] - [place] [facility] , awaiting pathology Assessment & [...] LAMA/LABA, albuterol prn -Suctioning q4, [facility] - [place] [facility] , awaiting pathology Assessment & [...] LAMA/LABA, albuterol prn -Suctioning q4, [facility] - [place] [facility] , awaiting pathology Assessment & [...] DuoNebs p.r.n., start LAMA/LABA, albuterol prn - [place] [facility] Assessment & Plan (04/08/2025 8:17 [...] DuoNebs p.r.n., start LAMA/LABA, albuterol prn - [place] [facility] Assessment & Plan (04/07/2025 5:48 [...] able - DuoNebs p.r.n., start LAMA/LABA - [place] [facility] on arrived floor BPH (benign [...] 3 WEEKS* Plan Start Date:07/13/2025 Plan Provider:Cheng Franco MD Linked Problems 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 BP mildly elevated here but unclear if patient has history of HTN and patient at risk of becoming hypotensive. Will d/c
--- OUTSIDE RECORDS SUMMARY | 2025-08-25 16:30 | XMS_ITS | Encounter Summary ---
Author Organization [facility] Address [address] [place] [address] Care Team Providers Care Feather Boner Name Role Phone Virgil Beaulieu MD Primary Care Provider [phone] Encounter Details Date Type Department Care Team (Late st Contact Info) Description 07/27/2025 Results Follow-Up [facility] [place] - Primary Care [address] [place] [address] Elizabeth Flor, PEEWEE [address] [place] [address] CBC with Differential Once, Comprehensive metabolic [...] the money to buy more. Never true 08/27/20 25 Within the past 12 months, t [...] any time in the past [address] [facility] [place], were you homeless or living in a [facility] (including now)? No 05/19/2025 Sex and Gender Information Value Date Recorded Sex Assigned at Not on file Legal Sex Male 12:56 PM CDT Gender Identity Not on file Sexual Orientation Not on file documented as of this encounter Plan of Treatment Upcoming Encounters Date Type Department Care Team (Late st Contact Info) Description 11/08/2025 9:45 AM ADAPTIVE PHYSICAL EDUCATION TEACHER Office Visit [facility] [place] - Primary Care [address] [place] [address] Virgil Beaulieu MD [address] [place] [address] documented as of this encounter Visit Diagnoses Not on filedocumented in this encounter Additional Health Concerns Health Status Noted Date Alive and well 07/02/2024 Assessment Noted Time PHQ-9 Depression Total Score: 0 11/19/19 25 12:46 PM ADAPTIVE PHYSICAL EDUCATION TEACHER A fall risk assessment has been complete d for the patient 07/27/2025 1:35 PM ADAPTIVE PHYSICAL EDUCATION TEACHER documented as of this encounter Care Teams Feather Boner Relationship Specialty Start Date End Date Virgil Beaulieu MD [address] [place] [address] PCP - General Internal Medicine 07/31/18 documented as of this encounter
--- OUTSIDE RECORDS SUMMARY | 2025-08-25 16:30 | XMS_ITS | Encounter Summary ---
Author Organization [facility] Address [address] [place] [address] Care Team Providers Care Corrections Sergeant Name Role Phone Virgil Beaulieu MD Primary Care Provider [phone] Reason for Referral * Diagnostic Imaging (Emergency) - Closed Specialty Diagnoses / Procedures Referred By Nia betancourt Referred To Contact Diagnoses Malignant ascites (HCC) Malignant neoplasm metastatic to liver (HCC) Abdominal distension Right upper quadrant abdominal pain Procedures Ultrasound Paracentesis Carmen Artis FNP-C [address] [place] [address] Phone: tel: fax: Referral ID Status Reason Start Date Expiration Date V isits Requested Visits Authorized [id number] Closed Other 08/10/2025 08/10/2027 1 1 TRICAL SUPERVISOR Encounter Details Date Type Department Care Team (Late st Contact Info) Description 08/10/2025 Orders Only [facility] [place] - Primary Care [address] [place] [address] Carmen Artis FNP-C [address] [place], [place] [address] Malignant ascites (HCC) (Primary Dx); Malignant neoplasm metastatic to liver (HCC); Abdominal distension; Right upper quadrant abdominal pain Social History Tobacco Use Types Packs/Day Years [...] were you homeless or living in a long-term (including now)? No 05/19/2025 Hunger Vital Sign [...] were you homeless or living in a long-term (including now)? No 08/09/2025 [facility] Utilities Answer Date Recorded [...] st Contact Info) Description 11/08/2025 9:45 AM ELECTRICAL SUPERVISOR Office Visit [facility] [place] - Primary Care [address] [place] [address] Virgil Beaulieu MD [address] [place] [address] Scheduled Orders Name Type Priority Associated Diagnoses Orde r Schedule Ultrasound Paracentesis Imaging STAT Malignant ascites (HCC) Malignant neoplasm metastatic to liver (HCC) Abdominal distension Right upper quadrant abdominal pain 1 Occurrences starting 08/10/2025 until 09/09/2026 documented as of this encounter Visit Diagnoses Diagnosis Malignant ascites (HCC)- Primary Malignant ascites Malignant neoplasm metastatic to liver (HCC) Abdominal distension Flatulence, eructation, and gas pain Right upper quadrant abdominal pain documented in this encounter Additional Health Concerns Health Status Noted Date Alive and well 07/02/2024 Assessment Noted Time PHQ-9 Depression Total Score: 0 11/19/19 25 12:46 PM ELECTRICAL SUPERVISOR A fall risk assessment has been complete d for the patient 08/09/2025 4:00 PM ELECTRICAL SUPERVISOR documented as of this encounter Care Teams Corrections Sergeant Relationship Specialty Start Date End Date Virgil Beaulieu MD [address] [place] [address] PCP - General Internal Medicine 07/31/18 documented as of this encounter
--- OUTSIDE RECORDS SUMMARY | 2025-08-25 16:30 | XMS_ITS | Clinical Summary ---
Author Organization [facility] Address [address] [place] [address] Care Team Providers Care Banquet Attendant Name Role Phone Carmen Artis Primary Care Provider [phone] Cheng Franco MD Unavailable [phone] Yuval Licona MD Unavailable Allergies Active Allergy [...] mets. Plan -Consult rad onc- outpatient evaluation -[place] q4 h prn -Oncology started carbo/etopo chemotherapy [...] mets. Plan -Consult rad onc- outpatient evaluation -[place] q4 h prn -Oncology started carbo/etopo chemotherapy [...] mets. Plan -Consult rad onc- outpatient evaluation -[place] q4 h prn -Oncology started carbo/etopo chemotherapy [...] for progressing/new mets. Plan Consult rad onc [place] q4 h prn Oncology to start carbo/etopo [...] mets. Plan -Consult rad onc- outpatient evaluation -[place] q4 h prn -Oncology started carbo/etopo chemotherapy [...] mets. Plan -Consult rad onc- outpatient evaluation -[place] q4 h prn -Oncology started carbo/etopo chemotherapy [...] mets. Plan -Consult rad onc- outpatient evaluation -[place] q4 h prn -Oncology started carbo/etopo chemotherapy [...] for progressing/new mets. Plan Consult rad onc [place] q4 h prn Oncology to start carbo/etopo [...] repeat MRI in 1 month. Plan: bMRI [place] q4 h prn Assessment & Plan (05/25/2025 [...] and currently on antibiotics. Evaluated previously by APPLIANCE FIXER who noted abnormal swallowing during last admission. Family noted possible repeat aspiration event last night. Will continue previously prescribed abx to complete 1 week course. APPLIANCE FIXER performed MBS which patient passed and is on regular diet. Plan: -Completed course of clindamycin 300 mg TID and doxycyline 100 BID Assessment & Plan (05/29/2025 7:14 AM CDT): Has had multiple episodes of aspiration pneumonia over the last month and currently on antibiotics. Evaluated previously by APPLIANCE FIXER who noted abnormal swallowing during last admission. Family noted possible repeat aspiration event last night. Will continue previously prescribed abx to complete 1 week course. APPLIANCE FIXER performed MBS which patient passed and is on regular diet. Plan: -Completed course of clindamycin 300 mg TID and doxycyline 100 BID Assessment & Plan (05/28/2025 11:53 AM CDT): Has had multiple episodes of aspiration pneumonia over the last month and currently on antibiotics. Evaluated previously by APPLIANCE FIXER who noted abnormal swallowing during last admission. Family noted possible repeat aspiration event last night. Will continue previously prescribed abx to complete 1 week course. APPLIANCE FIXER performed MBS which patient passed and is on regular diet. Plan: -Completed course of clindamycin 300 mg TID and doxycyline 100 BID Assessment & Plan (05/27/2025 1:09 PM CDT): Has had multiple episodes of aspiration pneumonia over the last month and currently on antibiotics. Evaluated previously by APPLIANCE FIXER who noted abnormal swallowing during last admission. Family noted possible repeat aspiration event last night. Will continue previously prescribed abx to complete 1 week course. APPLIANCE FIXER performed MBS which patient passed and is on regular diet. Plan: Completed course of clindamycin 300 mg TID and doxycyline 100 BID Assessment & Plan (05/26/2025 10:52 AM CDT): Has had multiple episodes of aspiration pneumonia over the last month and currently on antibiotics. Evaluated previously by APPLIANCE FIXER who noted abnormal swallowing during last admission. Family noted possible repeat aspiration event last night. Will continue previously prescribed abx to complete 1 week course and consult APPLIANCE FIXER Plan: APPLIANCE FIXER Continue clindamycin 300 mg TID, doxycyline 100 BID x1 day Assessment & Plan (05/25/2025 8:53 PM CDT): Has had multiple episodes of aspiration pneumonia over the last month and currently on antibiotics. Evaluated previously by APPLIANCE FIXER who noted abnormal swallowing during last admission. Family noted possible repeat aspiration event last night. Will continue previously prescribed abx to complete 1 week course and consult APPLIANCE FIXER - APPLIANCE FIXER - Continue clindamycin 300 mg TID, doxycyline 100 BID x1 day Assessment & Plan (04/28/2025 7:44 AM CDT): Seen on CT A/P on 04/12 with worsening consolidations compared to previous CT. Started on abx for empiric treatment. - S/p Ceftriaxone (04/12 - 04/17), azithromycin (04/12 - 04/14) - APPLIANCE FIXER recd post modified barium swallow on 04/21 - Reg diet, pills crushed in puree Assessment & Plan (04/27/2025 1:03 PM CDT): Seen on CT A/P on 04/12 with worsening consolidations compared to previous CT. Started on abx for empiric treatment. - S/p Ceftriaxone (04/12 - 04/17), azithromycin (04/12 - 04/14) - APPLIANCE FIXER recd post modified barium swallow on 04/21 - Reg diet, pills crushed in puree Assessment & Plan (04/26/2025 7:13 AM CDT): Seen on CT A/P on 04/12 with worsening consolidations compared to previous CT. Started on abx for empiric treatment. - S/p Ceftriaxone (04/12 - 04/17), azithromycin (04/12 - 04/14) - APPLIANCE FIXER recd post modified barium swallow on 04/21 - Reg diet, pills crushed in puree Assessment & Plan (04/25/2025 9:23 AM CDT): Seen on CT A/P on 04/12 with worsening consolidations compared to previous CT. Started on abx for empiric treatment. - S/p Ceftriaxone (04/12 - 04/17), azithromycin (04/12 - 04/14) - APPLIANCE FIXER recd post modified barium swallow on 04/21 [...] LAMA/LABA, albuterol prn -Suctioning q4, [facility] consult , awaiting pathology Assessment & [...] LAMA/LABA, albuterol prn -Suctioning q4, [facility] - [facility] consult , awaiting pathology Assessment & [...] LAMA/LABA, albuterol prn -Suctioning q4, [facility] - [facility] consult , awaiting pathology Assessment & [...] DuoNebs p.r.n., start LAMA/LABA, albuterol prn - [facility] consult Assessment & Plan (04/08/2025 8:17 [...] DuoNebs p.r.n., start LAMA/LABA, albuterol prn - [facility] consult Assessment & Plan (04/07/2025 5:48 [...] able - DuoNebs p.r.n., start LAMA/LABA - [facility] consult on arrived floor Urinary retention [...] LAMA/LABA, albuterol prn -Suctioning q4, [facility] - [facility] consult , awaiting pathology Assessment & [...] p.r.n., start LAMA/LABA, albuterol prn -Suctioning q4, [facility] oncology consult , awaiting pathology Assessment & [...] p.r.n., start LAMA/LABA, albuterol prn -Suctioning q4, [facility] - [facility] consult , awaiting pathology Assessment & [...] DuoNebs p.r.n., start LAMA/LABA, albuterol prn - [facility] consult Assessment & Plan (04/08/2025 8:17 [...] DuoNebs p.r.n., start LAMA/LABA, albuterol prn - [facility] consult Assessment & Plan (04/07/2025 5:48 [...] able - DuoNebs p.r.n., start LAMA/LABA - [facility] consult on arrived floor Malignant neoplasm [...] LAMA/LABA, albuterol prn -Suctioning q4, [facility] - [facility] consult , awaiting pathology Assessment & [...] LAMA/LABA, albuterol prn -Suctioning q4, [facility] - [facility] consult , awaiting pathology Assessment & [...] LAMA/LABA, albuterol prn -Suctioning q4, [facility] - [facility] consult , awaiting pathology Assessment & [...] DuoNebs p.r.n., start LAMA/LABA, albuterol prn - [facility] consult Assessment & Plan (04/08/2025 8:17 [...] DuoNebs p.r.n., start LAMA/LABA, albuterol prn - [facility] consult Assessment & Plan (04/07/2025 5:48 [...] able - DuoNebs p.r.n., start LAMA/LABA - [facility] consult on arrived floor BPH (benign [...] risk of becoming hypotensive.discontinued on admission to [facility] Assessment & Plan (05/25/2025 8:53 PM CDT): Previously prescribed losartan during recent admission at OSH. BP mildly elevated here but unclear if patient has history of HTN and patient at risk of becoming hypotensive. Will d/c Encounters Date Type Department Care Team Description 08/23/2025 Telephone [facility] Medicine Oncology [address] [place] [address] [address] [place] [phone] Nadege Burr RN 08/16/2025 Telephone [facility] Medicine Oncology [address] [place] [address] [address] [place] [phone] Nadege Burr, RN 08/10/[address] [facility] [address] [facility] Floor 5 [place] [address] Demetra Savage NP 08/09/2025 5:12 PM TIP CEMENTER - 08/09/2025 11:59 PM TIP CEMENTER Hospital Encounter [facility] [address] [place] [id number] Diagnosis unknown Discharge Disposition: Discharge to home or self care 08/09/2025 Telephone [facility] Medicine Oncology [address] [place] [address] [address] [place] [address] Nadgee Burr, RN 08/09/[address] Advanced Medicine [address] [place] [phone] Callie Niño 08/06/[address] [facility] [address] [place] [address] [address] [place] [address] Nadege Burr, RN 08/06/[address] [phone] Callie Niño 08/03/2025 2:30 PM TIP CEMENTER Infusion [facility] - Infusion [address] [facility] [place] Floor 5 [place] [address] Small cell carcinoma of lung, unspecified laterality, unspecified part of lung (HCC) (Primary Dx); Prophylaxis for chemotherapy-induced neutropenia; Malignant neoplasm metastatic to bone (HCC) 08/03/2025 1:40 PM TIP CEMENTER Office Visit [facility] Floor [address] [place] [address] Cheng Franco MD Small cell lung cancer in adult (HCC) (Primary Dx); 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 [address] [facility] Floor 5 [place] [phone] Nadege Burr, RN 07/22/[address] [facility] [address] [place] [address] [address] [place] [phone] Nadege Burr RN 07/22/[address] [facility] [address] [place] [address] [address] [place] [address] Nadege Burr, RN 07/15/2025 4:00 PM CDT Infusion [facility] - Infusion [address] [facility] [place] Floor 6 [place] [address] Malignant neoplasm metastatic to bone (HCC) (Primary Dx); Prophylaxis for chemotherapy-induced neutropenia; Small cell carcinoma of lung, unspecified laterality, unspecified part of lung (HCC) 07/14/2025 4:45 PM CDT Lab [facility] [place] Floor 5 [place] [address] Small cell lung cancer in adult (HCC); Anemia due to chemotherapy 07/14/2025 3:00 PM CDT Infusion [facility] - Infusion [address] [facility] [place] Floor 5 [place] [address] Small cell carcinoma of lung, unspecified laterality, unspecified part of lung (HCC) (Primary Dx); Prophylaxis for chemotherapy-induced neutropenia; Malignant neoplasm metastatic to bone (HCC) 07/14/[address] [facility] Floor 5 [place] [phone] Demetra Savage NP Anemia due to chemotherapy (Primary Dx) 07/14/[address] [facility] [address] [place] [address] 100 [place] [phone] Cheng Franco MD Small cell lung cancer in adult (HCC) (Primary Dx) 07/13/2025 10:30 AM CDT Infusion [facility] - Infusion [address] [place] [address] Small cell carcinoma of lung, unspecified laterality, unspecified part of lung (HCC) (Primary Dx); Prophylaxis for chemotherapy-induced neutropenia; Malignant neoplasm metastatic to bone (HCC) 07/13/2025 9:20 AM CDT Office Visit [facility] Medicine Oncology [address] [place] [address] Floor 5 [place] [address] Cheng Franco MD 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) (Primary Dx); Small cell carcinoma of lung, unspecified laterality, unspecified part of lung (HCC); 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); Prophylaxis for chemotherapy-induced neutropenia; Malignant neoplasm metastatic to bone (HCC); Lesion of nose; Anemia due to chemotherapy; Hyponatremia 07/13/2025 8:30 AM CDT Lab [facility] [address] [facility] [place] Floor 6 [place] [address] Prophylaxis for chemotherapy-induced neutropenia; Malignant neoplasm metastatic to bone (HCC); Small cell carcinoma of lung, unspecified laterality, unspecified part of lung (HCC) 07/13/2025 7:02 AM CDT - 07/13/2025 11:59 PM CDT Hospital Encounter [facility] [address] [facility] [address] [place] [address] 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 [address] [place] [address] [address] [place] [phone] Hermila Melchor CMA Call for schedule. 07/02/[address] [facility] [address] [place] [address] [address] [place] [phone] Nadege Burr, RN 07/02/[address] [facility] [address] [facility] [address] [place] [phone] Nadege Burr, RN 07/02/[address] [facility] [address] [facility] [address] [place] [phone] Hermila Melchor, KONSTANTIN Treatment question 06/24/2025 3:00 PM CDT Infusion [facility] [place] Floor 5 [place] [address] Small cell carcinoma of lung, unspecified laterality, unspecified part of lung (HCC) (Primary Dx); Prophylaxis for chemotherapy-induced neutropenia; Malignant neoplasm metastatic to bone (HCC) 06/23/2025 3:00 PM CDT Infusion [facility] [place] Floor [address] [place] [address] Malignant neoplasm metastatic to bone (HCC) (Primary Dx); Prophylaxis for chemotherapy-induced neutropenia; Small cell carcinoma of lung, unspecified laterality, unspecified part of lung (HCC) 06/22/2025 3:00 PM CDT Infusion [facility] [place] [address] [place] [address] Malignant neoplasm metastatic to bone (HCC) (Primary Dx); Prophylaxis for chemotherapy-induced neutropenia; Small cell carcinoma of lung, unspecified laterality, unspecified part of lung (HCC) 06/22/2025 2:00 PM CDT Office Visit 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) (Primary Dx); Small cell carcinoma of lung, unspecified laterality, unspecified part of lung (HCC); Malignant neoplasm metastatic to bone (HCC); Prophylaxis for chemotherapy-induced neutropenia; Hyperkalemia 06/22/2025 1:00 PM CDT Lab [facility] [place] [address] [place] [address] Prophylaxis for chemotherapy-induced neutropenia; Malignant neoplasm metastatic to bone (HCC); Small cell carcinoma of lung, unspecified laterality, unspecified part of lung (HCC); 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 [address] [place] [address] [address] [place] [phone] Nadege Burr RN 06/14/[address] [facility] [address] [place] [address] [address] [place] [phone] Nadege Burr RN 05/31/2025 10:15 AM CDT Lab [facility] [address] [facility] [place] Floor [address] [place] [address] 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); Anemia associated with chemotherapy; Hyperkalemia 05/31/2025 8:00 AM CDT Infusion [facility] - Infusion [address] [facility] [place] [address] [place] [address] Malignant neoplasm metastatic to bone (HCC) (Primary Dx); Prophylaxis for chemotherapy-induced neutropenia; Small cell carcinoma of lung, unspecified laterality, unspecified part of lung (HCC) 05/31/[address] [facility] [address] [place] [address] [address] [place] [phone] Nadege Burr RN 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) (Primary Dx); Anemia associated with chemotherapy; Hyperkalemia 05/31/[address] [facility] [address] [facility] [address] [place] [address] Cheng Franco MD 05/28/[address] [facility] [address] [place] [address] [address] [place] [phone] Nadege Burr, RN Malignant neoplasm metastatic to bone (HCC) (Primary Dx); Prophylaxis for chemotherapy-induced neutropenia; Small cell carcinoma of lung, unspecified laterality, unspecified part of lung (HCC) 05/27/2025 11:10 AM CDT Clinical Support [address] [place] [address] Gianna Callaway, PhD Depression, unspecified depression type 05/25/2025 6:22 PM CDT - 05/30/2025 2:30 PM CDT Hospital Encounter [address] [phone] Cheng Franco MD Tabagari, David, MD Daniel, Edward, MD PhD Small cell carcinoma of lung, unspecified laterality, unspecified part of lung (HCC) (Primary Dx); Prophylaxis for chemotherapy-induced neutropenia; Malignant neoplasm metastatic to bone (HCC); Malignant neoplasm metastatic to liver (HCC) Discharge Disposition: Discharge to home, home health skilled care from Last 3 Months Immunizations Immunization Administration [...] often do you attend chur ch or yazdanism services? 1 to 4 times per year 04/14/2025 Do you belong to any clubs o r organizations such as rastafarian groups, unions, Anderaternal or athletic groups, or school groups? No [...] any time in the past 12 m [facility], were you homeless or living in a jail (including now)? No 04/14/2025 Social Connection and Isolation Panel Answer Date Recorded In a typical week, how many times do you talk on the phone with family, friends, or neighbors? More than three times a week 05/26/2025 How often do you get togethe r with friends or relatives? More than three times a week 05/26/2025 How often do you attend chur ch or yazdanism services? 1 to 4 times per year 05/26/2025 Do you belong to any clubs o r organizations such as rastafarian groups, unions, fraternal or athletic groups, or [...] any time in the past 12 m [facility], were you homeless or living in a jail (including now)? No 05/26/2025 [facility] Utilities Answer Date Recorded In the past 12 months has th e [employer], gas, oil, or water [employer] threatened to shut off services in your [...] Comments Blood Pressure 122/71 08/03/2025 1:19 PM TIP CEMENTER Pulse 100 08/03/2025 1:19 PM TIP CEMENTER Temperature 36.4 C (97.5 F) 08/03/2025 1:19 PM TIP CEMENTER Respiratory Rate 19 08/03/2025 1:19 PM TIP CEMENTER Oxygen Saturation 96% 08/03/2025 1:19 PM TIP CEMENTER Inhaled Oxygen Concentration - - Weight 53.1 kg (117 lb) 08/03/2025 1:19 PM TIP CEMENTER Height 182.9 cm (6') 04/07/2025 7:21 PM [...] 10/02/2022, 10/25 Medical Devices Implanted Type Area Growth Media Mixer Mushroom Device Identifier Shelf Expiration Date Model / Serial / Lot Rt Carotid Artery Carotid Procedures Procedure Name Priority Date/Time Associated Diagnosis Comments CT BODY OUTSIDE CONSULT Routine 08/09/20 5:12 PM TIP CEMENTER Diagnosis unknown EGFR STAT 08/03/2025 1:10 PM TIP CEMENTER Prophylaxis for chemotherapy-induc ed neutropenia Malignant neoplasm metastatic to bone (HCC) Small cell carcinoma of lung, unspecified laterality, unspecified part of lung (HCC) DIFFERENTIAL AUTO STAT 08/03/2025 1:1 0 PM TIP CEMENTER Prophylaxis for chemotherapy-induc ed neutropenia Malignant neoplasm metastatic to bone (HCC) Small cell carcinoma of lung, unspecified laterality, unspecified part of lung (HCC) CBC WITH AUTO DIFFERENTIAL STAT 08/03/2025 1:10 PM TIP CEMENTER Prophylaxis for chemotherapy-induc ed neutropenia Malignant neoplasm metastatic to bone (HCC) Small cell carcinoma of lung, unspecified laterality, unspecified part of lung (HCC) COMPREHENSIVE METABOLIC PANEL STAT 08/03/2025 1:10 PM TIP CEMENTER Prophylaxis for chemotherapy-induc ed neutropenia Malignant neoplasm metastatic to bone (HCC) Small cell carcinoma of lung, unspecified laterality, unspecified part of lung (HCC) THYROID FUNCTION CASCADE Routine 08/03/2025 1:10 PM TIP CEMENTER Prophylaxis for chemotherapy-induc ed neutropenia Malignant neoplasm [...] VIDEO IP Routine 05/27/2025 10:21 AM CDT APPLIANCE FIXER EVALUATE AND TREAT VIDEOFLUOROSCOPIC SWALLOW STUDY Routine 05/27/2025 10:10 AM CDT APPLIANCE FIXER EVALUATE AND TREAT Routine 10:10 AM CDT [...] WITHOUT DIFFERENTIAL Timed 05/26/2025 12:08 PM CDT from Last 3 Months Results * CT Body Outside Consult (08/09/2025 5:12 PM TIP CEMENTER) Anatomical Region Laterality Modality Body N/A Computed Tomogra phy 08/10/2025 9:33 AM TIP CEMENTER Impressions 08/10/2025 9:33 AM TIP CEMENTER 1. Progressive hepatic metastatic disease and progressive periportal and peripancreatic lymphadenopathy. 2. No significant change in bilateral adrenal nodules, and osseous metastatic disease in the pelvis. The findings, conclusions and recommendations within this report do not replace the initial findings, conclusions and recommendations made at the facility where the study was performed based upon the imaging and clinical condition at that time. Comparison with the prior report and clinical history is necessary. The provided images may or may not represent the [place] source data set and thus may contain changes that may lower the accuracy of this second-opinion interpretation. Electronically signed by: Mirtha Sanz M.D. Narrative 08/10/2025 9:33 AM TIP CEMENTER EXAMINATION: RADIOLOGY CONSULTATION ON OUTSIDE IMAGING STUDY STUDY INITIALLY PERFORMED: 08/06/2025 at [facility]. TYPE OF STUDY: Multiple CT images of the abdomen and pelvis with intravenous contrast are provided at the time of this interpretation. CONTRAST ROUTE: Contrast was administered via the intravenous route. The protocol was adequate to address the clinical question. The outside final report was not available at the time of this second opinion interpretation. TYPE OF CONSULTATION: Consult on outside imaging study with images submitted through Outside Image [employer]aring [facility] DATE OF CONSULTATION: 08/10/2025 8:41 AM HISTORY: Lung cancer with metastases to liver and bones COMPARISON: 07/13/2025 FINDINGS: There are a few small areas of atelectasis and subcentimeter groundglass nodules in the imaged right middle lobe and lingula. The heart is normal in size. There is no pericardial effusion. There is gastrohepatic lymphadenopathy which is similar to the prior examination measuring up to 11 mm in short axis. There is progressive hepatic metastatic disease with multifocal new hepatic metastases, as well as increased size of multiple pre-existing lesions. Hypoattenuating lesion in hepatic segment 8 measures 4.1 cm, previously 3.3 cm (series 4 image 20). There is a new area of peripheral intrahepatic biliary ductal dilatation within hepatic segment 5 distal to multiple metastatic lesions (series 4 image 40). There is mass effect on the hepatic veins by the extensive hepatic metastases. The portal veins are patent. Calcified granulomas in the spleen. Bilateral adrenal nodules which are not significantly changed compared to prior. Gallbladder is mostly decompressed. Periportal and peripancreatic lymphadenopathy is more bulky compared to prior and encases the common hepatic artery. Pancreas is unchanged in appearance. Multifocal small nonobstructing left renal stones. Calyceal diverticulum in the mid right kidney with layering stone. No hydronephrosis. There is mass effect on the superior mesenteric vein with severe narrowing where it passes. A 2 the liver in the peripancreatic region, which is unchanged from the prior examination. Espinosa catheter decompresses the urinary bladder. No ascites or pneumoperitoneum. 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 No bowel obstruction. Multifocal osseous metastatic disease including a large permeative lytic lesion with soft tissue component in the right iliac wing sclerotic lesion in the left iliac bone posteriorly. Procedure Note Mirtha Sanz MD - 08/10/2025 EXAMINATION: RADIOLOGY CONSULTATION ON OUTSIDE IMAGING STUDY STUDY INITIALLY PERFORMED: 08/06/2025 at [facility]. TYPE OF STUDY: Multiple CT images of the abdomen and pelvis with intravenous contrast are provided at the time of this interpretation. CONTRAST ROUTE: Contrast was administered via the intravenous route. The protocol was adequate to address the clinical question. The outside final report was not available at the time of this second opinion interpretation. TYPE OF CONSULTATION: Consult on outside imaging study with images submitted through Outside Image Sharing Service DATE OF CONSULTATION: 08/10/2025 8:41 AM HISTORY: Lung cancer with metastases to liver and bones COMPARISON: 07/13/2025 FINDINGS: There are a few small areas of atelectasis and subcentimeter groundglass nodules in the imaged right middle lobe and lingula. The heart is normal in size. There is no pericardial effusion. There is gastrohepatic lymphadenopathy which is similar to the prior examination measuring up to 11 mm in short axis. There is progressive hepatic metastatic disease with multifocal new hepatic metastases, as well as increased size of multiple pre-existing lesions. Hypoattenuating lesion in hepatic segment 8 measures 4.1 cm, previously 3.3 cm (series 4 image 20). There is a new area of peripheral intrahepatic biliary ductal dilatation within hepatic segment 5 distal to multiple metastatic lesions (series 4 image 40). There is mass effect on the hepatic veins by the extensive hepatic metastases. The portal veins are patent. Calcified granulomas in the spleen. Bilateral adrenal nodules which are not significantly changed compared to prior. Gallbladder is mostly decompressed. Periportal and peripancreatic lymphadenopathy is more bulky compared to prior and encases the common hepatic artery. Pancreas is unchanged in appearance. Multifocal small nonobstructing left renal stones. Calyceal diverticulum in the mid right kidney with layering stone. No hydronephrosis. There is mass effect on the superior mesenteric vein with severe narrowing where it passes. A 2 the liver in the peripancreatic region, which is unchanged from the prior examination. Espinosa catheter decompresses the urinary bladder. No ascites or pneumoperitoneum. 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 No bowel obstruction. Multifocal osseous metastatic disease including a large permeative lytic lesion with soft tissue component in the right iliac wing sclerotic lesion in the left iliac bone posteriorly. IMPRESSION: 1. Progressive hepatic metastatic disease and progressive periportal and peripancreatic lymphadenopathy. 2. No significant change in bilateral adrenal nodules, and osseous metastatic disease in the pelvis. The findings, conclusions and recommendations within this report do not replace the initial findings, conclusions and recommendations made at the facility where the study was performed based upon the imaging and clinical condition at that time. Comparison with the prior report and clinical history is necessary. The provided images may or may not represent the [place] source data set and thus may contain changes that may lower the accuracy of this second-opinion interpretation. Electronically signed by: Mirtha Sanz M.D. Cheng Franco MD IMG CT PROCEDURES Final R esult * eGFR (08/03/2025 1:10 PM TIP CEMENTER) eGFR >90 >=60 mL/min/1. 73 m2 Comment: [...] last reviewed 2021. Blood 08/03/2025 1:10 PM TIP CEMENTER 08/03/2025 1:19 PM TIP CEMENTER Cheng Franco MD LAB BLOOD ORDERABLES Cherrie albarran Result ESME GILMAN [facility] [place] [address] * (ABNORMAL) Differential, auto (08/03/2025 1:10 PM TIP CEMENTER) Neutrophil abs 13.07(H) 1.50 - 6.50 K/cumm Comment:Testing performed by : [facility], [address] [place] [phone] Lymphocyte abs 0.71(L) 0.80 - 3.30 K/cumm [facility] Comment:Testing performed by : [facility], [address] [place] [phone] Monocyte abs 1.11(H) 0.20 - 0.80 K/cumm [facility] Comment:Testing performed by : [facility], [address] [place] [phone] Eosinophil abs 0.05 0.00 - 0.50 K/cumm [facility] Comment:Testing performed by : [facility], [address] [place] [phone] Basophil abs 0.05 0.00 - 0.10 K/cumm [facility] Comment:Testing performed by : [facility], [address] [place], [place] [phone] Neutrophil pct 87.2 % [facility] Comment: Interpretive Data Percent cell count reference ranges are not reported, since discordance with absolute values may lead to misinterpretation of CBC data. Current Interpretive Data was last revised on 2017. Testing performed by: [facility], [address] [place] [phone] Lymphocyte pct 4.7 % [facility] Comment: Interpretive Data Percent cell count reference ranges are not reported, since discordance with absolute values may lead to misinterpretation of CBC data. Current Interpretive Data was last revised on 2017. Testing performed by: [facility], [address] [place] [phone] Monocyte pct 7.4 % [facility] Comment: Interpretive Data Percent cell count reference ranges are not reported, since discordance with absolute values may lead to misinterpretation of CBC data. Current Interpretive Data was last revised on 2017. Testing performed by: [facility], [address] [place] [phone] Eosinophil pct 0.3 % [facility] Comment: Interpretive Data Percent cell count reference ranges are not reported, since discordance with absolute values may lead to misinterpretation of CBC data. Current Interpretive Data was last revised on 2017. Testing performed by: [facility], [address] [place] [phone] Basophil pct 0.3 % [facility] Comment: Interpretive Data Percent cell count reference ranges are not reported, since discordance with absolute values may lead to misinterpretation of CBC data. Current Interpretive Data was last revised on 2017. Testing performed by: [facility], [address] [place] [phone] Blood 08/03/2025 1:10 PM TIP CEMENTER 08/03/2025 1:17 PM TIP CEMENTER Cheng Franco MD LAB BLOOD ORDERABLES Cherrie l Result Performing Organization Address [facility] Co de Phone Number [facility] Department [place] [address] * Thyroid Function Salvo (08/03/2025 1:10 PM TIP CEMENTER) TSH 1.81 0.30 - 4.20 mcIUnit/mL Blood 08/03/2025 1:10 PM TIP CEMENTER 08/03/2025 1:19 PM TIP CEMENTER Result [facility] Cheng Franco MD LAB BLOOD ORDERABLES Cherrie l Result Performing Organization Address City/[facility] Co de Phone Number [facility] Department [place] [address] * (ABNORMAL) CBC with auto differential (08/03/2025 1:10 PM TIP CEMENTER) WBC 14.99(H) 3.80 - 9.90 K/cumm Comment:Testing performed by : [facility], [address] [place] [phone] Hgb 9.8(L) 13.0 - 17.5 g/dL [facility] Comment:Testing performed by : [facility], [address] [place], [place] [phone] Hct 29.3(L) 38.9 - 50.3 % [facility]ER [facility] Comment:Testing performed by : [facility], [address] [place], [place] [phone] Plt 425(H) 150 - 400 K/cumm CERNER [facility] Comment:Testing performed by : [facility], [address] [place], [place] [phone] MPV 6.5(L) 6.8 - 10.4 fL CERNER [facility] Comment:Testing performed by : [facility], [address] [place], [place] [phone] RBC 3.01(L) 4.30 - 5.80 M/cumm CERNER [facility] Comment:Testing performed by : [facility], [address] [place], [place] [phone] MCV 97.3(H) 81.3 - 96.4 fL [facility] Comment:Testing performed by : [facility], [address] [place], [place] [phone] MCH 32.5 27.1 - 33.3 pg [facility]ER [facility] Comment:Testing performed by : [facility], [address] [place], [place] [phone] MCHC 33.4 32.3 - 35.7 g/dL [facility] Comment:Testing performed by : [facility], [address] [place], [place] [phone] RDW CV 19.3(H) 11.1 - 14.9 % [facility] Comment:Testing performed by : [facility], [address] [place] [address] NRBC abs 0.00 0.00 - 0.01 K/cumm C[facility]ER [facility] Comment:Testing performed by : [facility], [address] [place], [place] [phone] Blood 08/03/2025 1:10 PM TIP CEMENTER 08/03/2025 1:17 PM TIP CEMENTER us Cheng Franco MD LAB BLOOD ORDERABLES Cherrie albarran Result [facility] Department [place] [address] * (ABNORMAL) Comprehensive metabolic panel (08/03/2025 1:10 PM TIP CEMENTER) Sodium 133(L) 135 - 145 mmol/L Potassium, pl 4.8 3.3 - 4.9 mmol/L [facility] Chloride 90(L) 97 - 110 mmol/L CERNER [facility] CO2 34(H) 22 - 32 mmol/L [facility] Anion gap 9 2 - 15 mmol/L [facility] BUN 19 6 - 25 mg/dL [facility] Creatinine 0.52(L) 0.80 - 1.30 mg/dL [facility] Glucose 135 70 - 199 mg/dL [facility] Comment: Interpretive Data Fasting glucose >/= 126 [...] 2022. Calcium 9.5 8.5 - 10.3 mg/dL [facility] Bilirubin, total 0.3 0.1 - 1.2 mg/dL [facility] Protein, pl 6.7 6.5 - 8.5 g/dL [facility] Albumin 3.8 3.5 - 5.0 g/dL [facility] Alk phos 157(H) 40 - 130 Units/L CERN[facility] ALT 73(H) 7 - 55 Units/L C[facility] AST 75(H) 10 - 50 Units/L [facility] Comment:Hemolyzed; result ma y be falsely elevated Blood 08/03/2025 1:10 PM TIP CEMENTER 08/03/2025 1:19 PM TIP CEMENTER us Cheng Franco MD LAB BLOOD ORDERABLES Cherrie avis Result [facility] Department [place] [address] * Respiratory pathogen panel Nasopharyngeal (07/14/2025 5:03 PM CDT) Pathologist [facility] Influenza A RNA Not Detected Not Detected Influenza B RNA Not Detected Not Detected [facility] RSV RNA Not Detected Not Detected [facility] COVID-19 RNA Not Detected Not Detected [facility] Coronavirus 229E RNA Not Detected Not Detected [facility] Coronavirus HKU1 RNA Not Detected Not Detected [facility] Coronavirus NL63 RNA Not Detected Not Detected [facility] Coronavirus OC43 RNA Not Detected Not Detected [facility] Adenovirus DNA Not Detected Not Detected [facility] Metapneumovirus RNA Not Detected Not Detected [facility] Rhinovirus/Enterov irus RNA Not Detected Not Detected [facility] Parainfluenza 1 RNA Not Detected Not Detected [facility] Parainfluenza 2 RNA Not Detected Not Detected [facility] Parainfluenza 3 RNA Not Detected Not Detected [facility] Parainfluenza 4 RNA Not Detected Not Detected [facility] B. pertussis DNA Not Detected Not Detected [facility] B. parapertussis DNA Not Detected Not Detected [facility] C. pneumoniae DNA Not Detected Not Detected [facility] M. pneumoniae DNA Not Detected Not Detected [facility] Nasopharyngeal 07/14/2025 5: 03 PM CDT 07/14/2025 5:50 PM CDT Narrative [facility] - 07/14/2025 6:43 PM CDT Is the Patient experiencing symptoms consistent with COVID?->Yes Surveillance testing for transplant patient?->No Interpretive Data The Minimus Spine FilmArray Respiratory Panel (RP2.1) assay is a [...] assay has FDA clearance for testing of PUBLICATIONS SALES REPRESENTATIVE swabs. The performance of additional specimen types has been assessed by the performing laboratory. The performance characteristics of this assay have been determined by [facility] Infectious Disease [facility]. Current interpretive data was last revised on 22. Cheng Franco MD LAB MICROBIOLOGY - GENERA L ORDERABLES Final Result [facility] [place] [address] * eGFR (07/13/2025 8:13 AM CDT) Pathologist [facility] eGFR >90 >=60 mL/min/1. 73 m2 Comment: [...] 07/13/2025 8:22 AM CDT us Demetra Savage PUBLICATIONS SALES REPRESENTATIVE LAB BLOOD ORDERABLES Final Result [facility] [place] [address] * (ABNORMAL) Differential, auto (07/13/2025 8:13 AM CDT) [facility] Neutrophil abs 7.34(H) 1.50 - 6.50 K/cumm Comment:Testing performed by : [facility], [address] [place] [phone] Lymphocyte abs 0.71(L) 0.80 - 3.30 K/cumm [facility] G[facility]MAN Comment:Testing performed by : [facility], [address] [place] [phone] Monocyte abs 0.65 0.20 - 0.80 K/cumm [facility] GILMAN Comment:Testing performed by : [facility], [address] [place] [phone] Eosinophil abs 0.03 0.00 - 0.50 K/cumm [facility] Comment:Testing performed by : [facility], [address] [place] [phone] Basophil abs 0.03 0.00 - 0.10 K/cumm [facility] Comment:Testing performed by : [facility], [address] [place] [phone] Neutrophil pct 83.8 % [facility] Comment: Interpretive Data Percent cell count reference ranges are not reported, since discordance with absolute values may lead to misinterpretation of CBC data. Current Interpretive Data was last revised on 2017. Testing performed by: [facility], [address] [place] [phone] Lymphocyte pct 8.1 % [facility] Comment: Interpretive Data Percent cell count reference ranges are not reported, since discordance with absolute values may lead to misinterpretation of CBC data. Current Interpretive Data was last revised on 2017. Testing performed by: [facility], [address] [place] [phone] Monocyte pct 7.4 % [facility] Comment: Interpretive Data Percent cell count reference ranges are not reported, since discordance with absolute values may lead to misinterpretation of CBC data. Current Interpretive Data was last revised on 2017. Testing performed by: [facility], [address] [place] [phone] Eosinophil pct 0.3 % [facility] Comment: Interpretive Data Percent cell count reference ranges are not reported, since discordance with absolute values may lead to misinterpretation of CBC data. Current Interpretive Data was last revised on 2017. Testing performed by: [facility], [address] [place] [phone] Basophil pct 0.3 % [facility] Comment: Interpretive Data Percent cell count reference ranges are not reported, since discordance with absolute values may lead to misinterpretation of CBC data. Current Interpretive Data was last revised on 2017. Testing performed by: [facility], [address] [place] [phone] Blood 07/13/2025 8:13 AM CDT 07/13/2025 8:19 AM CDT Demetra Savage PUBLICATIONS SALES REPRESENTATIVE LAB BLOOD ORDERABLES Final Result Performing Organization Address [facility]/ZIP Co de Phone Number [facility] [place] [address] * Thyroid Function Salvo (07/13/2025 8:13 AM CDT) TSH 0.77 0.30 - 4.20 mcIUnit/mL Blood 07/13/2025 8:13 AM CDT 07/13/2025 8:22 AM CDT Demetra Saavge PUBLICATIONS SALES REPRESENTATIVE LAB BLOOD ORDERABLES Final Result Performing Organization Address [facility] Co de Phone Number [facility] [place] [address] * Iron profile w/ IBC (07/13/2025 8:13 AM CDT) Pathologist [facility] Iron 51 50 - 150 mcg/dL TIBC 252 250 - 400 mcg/dL [facility] Transferrin saturation 20 20 - 50 % [facility] Blood 07/13/2025 8:13 AM CDT 07/13/2025 8:22 AM CDT Andree Rawls MD LAB BLOOD ORDERABLES Final Result Performing Organization Address City/[facility]/ZIP Co de Phone Number [facility] [place] [address] * (ABNORMAL) CBC with auto differential (07/13/2025 8:13 AM CDT) WBC 8.76 3.80 - 9.90 K/cumm Comment:Testing performed by : [facility], [address] [place] [address] Hgb 9.3(L) 13.0 - 17.5 g/dL [facility] Comment:Testing performed by : [facility], [address] [place] [address] Hct 26.6(L) 38.9 - 50.3 % [facility] Comment:Testing performed by : [facility], [address] [place] [address] Plt 251 150 - 400 K/cumm [facility] Comment:Testing performed by : [facility], [address] [place] [address] MPV 6.1(L) 6.8 - 10.4 fL [facility] Comment:Testing performed by : [facility], [address] [place] [address] RBC 2.85(L) 4.30 - 5.80 M/cumm [facility] Comment:Testing performed by : [facility], [address] [place] [address] MCV 93.2 81.3 - 96.4 fL [facility] Comment:Testing performed by : [facility], [address] [place] [address] MCH 32.4 27.1 - 33.3 pg [facility] Comment:Testing performed by : [facility], [address] [place] [address] MCHC 34.8 32.3 - 35.7 g/dL [facility] Comment:Testing performed by : [facility], [address] [place] [address] RDW CV 17.0(H) 11.1 - 14.9 % [facility] Comment:Testing performed by : [facility], [address] [place] [address] NRBC abs 0.00 0.00 - 0.01 K/cumm [facility] Comment:Testing performed by : [facility], [address] [place] [address] Blood 07/13/2025 8:13 AM CDT 07/13/2025 8:19 AM CDT us Demetra Savage PUBLICATIONS SALES REPRESENTATIVE LAB BLOOD ORDERABLES Final Result [facility] [place] [address] * (ABNORMAL) Comprehensive metabolic panel (07/13/2025 8:13 AM CDT) Sodium 127(L) 135 - 145 mmol/L Potassium, pl 4.2 3.3 - 4.9 mmol/L [facility] Chloride 89(L) 97 - 110 mmol/L [facility] CO2 32 22 - 32 mmol/L [facility] Anion gap 6 2 - 15 mmol/L [facility] BUN 10 6 - 25 mg/dL [facility] Creatinine 0.42(L) 0.80 - 1.30 mg/dL [facility] Glucose 96 70 - 199 mg/dL [facility] Comment: Interpretive Data Fasting glucose >/= 126 [...] 2022. Calcium 8.2(L) 8.5 - 10.3 mg/dL [facility] Bilirubin, total 0.2 0.1 - 1.2 mg/dL [facility] Protein, pl 6.0(L) 6.5 - 8.5 g/dL [facility] Albumin 3.5 3.5 - 5.0 g/dL [facility] Alk phos 89 40 - 130 Units/L [facility] ALT 32 7 - 55 Units/L [facility] AST 33 10 - 50 Units/L [facility] Blood 07/13/2025 8:13 AM CDT 07/13/2025 8:22 AM CDT us Demetra Savage PUBLICATIONS SALES REPRESENTATIVE LAB BLOOD ORDERABLES Final Result [facility] GODINEZ [facility] [place] [address] * CT Chest Abdomen Pelvis W Contrast [...] disease. Electronically signed by: Benjamín Castorena M.D. Cheng Franco MD IMG CT PROCEDURES Final R esult * eGFR [...] 4:45 PM CDT 06/22/2025 5:33 PM CDT Cheng Franco MD LAB BLOOD ORDERABLES Cherrie l Result [facility] Department of Laboratories [place], [place] [id number] * (ABNORMAL) Basic metabolic panel (06/22/2025 4:45 PM CDT) Sodium 139 135 - 145 mmol/L Potassium, pl 4.2 3.3 - 4.9 mmol/L [facility] Chloride 98 97 - 110 mmol/L [facility] CO2 34(H) 22 - 32 mmol/L [facility] Anion gap 7 2 - 15 mmol/L [facility] BUN 14 6 - 25 mg/dL [facility] [facility] Creatinine 0.54(L) 0.80 - 1.30 mg/dL [facility] Glucose 105 70 - 199 mg/dL [facility] Comment: Interpretive Data Fasting glucose >/= 126 [...] 2022. Calcium 7.9(L) 8.5 - 10.3 mg/dL [facility] Blood 06/22/2025 4:45 PM CDT 06/22/2025 5:30 PM CDT us Cheng Franco MD LAB BLOOD ORDERABLES Cherrie albarran Result [facility] [place] [address] * eGFR (06/22/2025 1:05 PM CDT) eGFR [...] 1:05 PM CDT 06/22/2025 1:09 PM CDT us Cheng Franco MD LAB BLOOD ORDERABLES Cherrie l Result [facility] [place] [address] * (ABNORMAL) Differential, auto (06/22/2025 1:05 PM CDT) Neutrophil abs 9.15(H) 1.50 - 6.50 K/cumm Comment:Testing performed by : [facility], [address] [place] [phone] Lymphocyte abs 0.76(L) 0.80 - 3.30 K/cumm [facility] Comment:Testing performed by : [facility], [address] [place], [place] [phone] Monocyte abs 0.90(H) 0.20 - 0.80 K/cumm [facility] Comment:Testing performed by : [facility], [address] [place] [address] Eosinophil abs 0.10 0.00 - 0.50 K/cumm [facility] Comment:Testing performed by : [facility], [address] [place] [phone] Basophil abs 0.04 0.00 - 0.10 K/cumm [facility] Comment:Testing performed by : [facility], [address] [place], [place] [phone] Neutrophil pct 83.6 % [facility] Comment: Interpretive Data Percent cell count reference ranges are not reported, since discordance with absolute values may lead to misinterpretation of CBC data. Current Interpretive Data was last revised on 2017. Testing performed by: [facility], [address] [place] [phone] Lymphocyte pct 6.9 % [facility] Comment: Interpretive Data Percent cell count reference ranges are not reported, since discordance with absolute values may lead to misinterpretation of CBC data. Current Interpretive Data was last revised on 2017. Testing performed by: [facility], [address] [place] [phone] Monocyte pct 8.2 % [facility] Comment: Interpretive Data Percent cell count reference ranges are not reported, since discordance with absolute values may lead to misinterpretation of CBC data. Current Interpretive Data was last revised on 2017. Testing performed by: [facility], [address] [place] [phone] Eosinophil pct 0.9 % [facility] Comment: Interpretive Data Percent cell count reference ranges are not reported, since discordance with absolute values may lead to misinterpretation of CBC data. Current Interpretive Data was last revised on 2017. Testing performed by: [facility], [address] [place] [phone] Basophil pct 0.3 % [facility] Comment: Interpretive Data Percent cell count reference ranges are not reported, since discordance with absolute values may lead to misinterpretation of CBC data. Current Interpretive Data was last revised on 2017. Testing performed by: [facility], [address] [place] [phone] Blood 06/22/2025 1:05 PM CDT 06/22/2025 1:06 PM CDT us Cheng Franco MD LAB BLOOD ORDERABLES Cherrie albarran Result [facility] [place] [address] * Thyroid Function Salvo (06/22/2025 1:05 PM CDT) TSH 0.98 0.30 - 4.20 mcIUnit/mL Blood 06/22/2025 1:05 PM CDT 06/22/2025 1:09 PM CDT Cheng Franco MD LAB BLOOD ORDERABLES Cherrie avis Result [facility] [place] [address] * (ABNORMAL) CBC with auto differential (06/22/2025 1:05 PM CDT) WBC 10.94(H) 3.80 - 9.90 K/cumm Comment:Testing performed by : [facility], [address] [place] [address] Hgb 10.5(L) 13.0 - 17.5 g/dL [facility] Comment:Testing performed by : [facility], [address] [place] [address] Hct 31.9(L) 38.9 - 50.3 % [facility] Comment:Testing performed by : [facility], [address] [place] [address] Plt 474(H) 150 - 400 K/cumm [facility] Comment:Testing performed by : [facility], [address] [place] [address] MPV 6.4(L) 6.8 - 10.4 fL [facility] Comment:Testing performed by : [facility], [address] [place] [address] RBC 3.26(L) 4.30 - 5.80 M/cumm [facility] Comment:Testing performed by : [facility], [address] [place] [address] MCV 97.9(H) 81.3 - 96.4 fL [facility] Comment:Testing performed by : [facility], [address] [place] [address] MCH 32.1 27.1 - 33.3 pg [facility] Comment:Testing performed by : [facility], [address] [place] [phone] MCHC 32.8 32.3 - 35.7 g/dL [facility] Comment:Testing performed by : [facility], [address] [place] [phone] RDW CV 18.4(H) 11.1 - 14.9 % [facility] Comment:Testing performed by : [facility], [address] [place] [phone] NRBC abs 0.00 0.00 - 0.01 K/cumm [facility] Comment:Testing performed by : [facility], [address] [place] [phone] Blood 06/22/2025 1:05 PM CDT 06/22/2025 1:06 PM CDT Cheng Franco MD LAB BLOOD ORDERABLES Cherrie l Result [facility] [place] [address] * (ABNORMAL) Comprehensive metabolic panel (06/22/2025 1:05 PM CDT) Sodium 139 135 - 145 mmol/L Potassium, pl 5.7(H) 3.3 - 4.9 mmol/L [facility] Chloride 93(L) 97 - 110 mmol/L [facility] CO2 39(H) 22 - 32 mmol/L [facility] Anion gap 7 2 - 15 mmol/L [facility] BUN 17 6 - 25 mg/dL [facility] Creatinine 0.58(L) 0.80 - 1.30 mg/dL [facility] Glucose 120 70 - 199 mg/dL [facility] Comment: Interpretive Data Fasting glucose >/= 126 [...] Calcium 9.2 8.5 - 10.3 mg/dL [facility] Bilirubin, total 0.3 0.1 - 1.2 mg/dL [facility] Protein, pl 7.2 6.5 - 8.5 g/dL [facility] Albumin 4.1 3.5 - 5.0 g/dL [facility] Alk phos 117 40 - 130 Units/L [facility] ALT 37 7 - 55 Units/L [facility] AST 39 10 - 50 Units/L [facility] Blood 06/22/2025 1:05 PM CDT 06/22/2025 1:09 PM CDT Cheng Franco MD LAB BLOOD ORDERABLES Cherrie albarran Result [facility] [place] [address] * eGFR (05/31/2025 10:42 AM CDT) eGFR [...] MD LAB BLOOD ORDERABLES Cherrie avis Result [facility] [place] [address] * (ABNORMAL) Differential, auto (05/31/2025 10:42 AM CDT) Neutrophil abs 10.52(H) 1.50 - 6.50 K/cumm Comment:Testing performed by : [facility], [address] [place] [phone] Lymphocyte abs 0.86 0.80 - 3.30 K/cumm [facility] Comment:Testing performed by : [facility], [address] [place], [place] [phone] Monocyte abs 0.20 0.20 - 0.80 K/cumm [facility] Comment:Testing performed by : [facility], [address] [place], [place] [phone] Eosinophil abs 0.05 0.00 - 0.50 K/cumm [facility] Comment:Testing performed by : [facility], [address] [place] [phone] Basophil abs 0.02 0.00 - 0.10 K/cumm [facility] Comment:Testing performed by : [facility], [address] [place] [phone] Neutrophil pct 90.2 % [facility] Comment: Interpretive Data Percent cell count reference ranges are not reported, since discordance with absolute values may lead to misinterpretation of CBC data. Current Interpretive Data was last revised on 2017. Testing performed by: [facility], [address] [place], [place] [phone] Lymphocyte pct 7.4 % [facility] Comment: Interpretive Data Percent cell count reference ranges are not reported, since discordance with absolute values may lead to misinterpretation of CBC data. Current Interpretive Data was last revised on 2017. Testing performed by: [facility], [address] [place] [phone] Monocyte pct 1.8 % [facility] Comment: Interpretive Data Percent cell count reference ranges are not reported, since discordance with absolute values may lead to misinterpretation of CBC data. Current Interpretive Data was last revised on 2017. Testing performed by: [facility], [address] [place] [phone] Eosinophil pct 0.4 % [facility] Comment: Interpretive Data Percent cell count reference ranges are not reported, since discordance with absolute values may lead to misinterpretation of CBC data. Current Interpretive Data was last revised on 2017. Testing performed by: [facility], [address] [place] [phone] Basophil pct 0.2 % [facility] Comment: Interpretive Data Percent cell count reference ranges are not reported, since discordance with absolute values may lead to misinterpretation of CBC data. Current Interpretive Data was last revised on 2017. Testing performed by: [facility], [address] [place] [phone] Blood 05/31/2025 10:4 2 AM CDT 05/31/2025 10:45 AM CDT Cheng Franco MD LAB BLOOD ORDERABLES Cherrie l Result [facility] [place] [address] * (ABNORMAL) CBC with auto differential (05/31/2025 10:42 AM CDT) WBC 11.66(H) 3.80 - 9.90 K/cumm Comment:Testing performed by : [facility], [address] [place] [address] Hgb 10.7(L) 13.0 - 17.5 g/dL [facility] Comment:Testing performed by : [facility], [address] [place] [address] Hct 32.5(L) 38.9 - 50.3 % [facility] Comment:Testing performed by : [facility], [address] [place], [place] [phone] Plt 321 150 - 400 K/cumm [facility] Comment:Testing performed by : [facility], [address] [place] [address] MPV 7.0 6.8 - 10.4 fL [facility] Comment:Testing performed by : [facility], [address] [place], [place] [phone] RBC 3.41(L) 4.30 - 5.80 M/cumm [facility] Comment:Testing performed by : [facility], [address] [place], [place] [phone] MCV 95.3 81.3 - 96.4 fL [facility] Comment:Testing performed by : [facility], [address] [place] [address] MCH 31.4 27.1 - 33.3 pg [facility] Comment:Testing performed by : [facility], [address] [place] [address] MCHC 33.0 32.3 - 35.7 g/dL [facility] Comment:Testing performed by : [facility], [address] [place] [address] RDW CV 17.6(H) 11.1 - 14.9 % [facility] Comment:Testing performed by : [facility], [address] [place] [address] NRBC abs 0.00 0.00 - 0.01 K/cumm [facility] Comment:Testing performed by : [facility], [address] [place] [address] Blood 05/31/2025 10:4 2 AM CDT 05/31/2025 10:45 AM CDT Cheng Franco MD LAB BLOOD ORDERABLES Cherrie l Result Performing Organization Address [facility] Co de Phone Number [facility] [place] [address] * Type and screen (05/31/2025 10:42 AM CDT) Pathologist [facility] ABO Rh A Positive Char, indirect Negative [facility] Blood 05/31/2025 10:4 2 AM CDT 05/31/2025 10:53 AM CDT Narrative [facility] - 05/31/2025 11:42 AM CDT Has the patient had Daratumumab or Isatuximab in the past 6 months?->Unknown Cheng Franco MD LAB BLOOD BANK TEST ORDER ELLA Final Result Performing Organization Address [facility] [[email or web address]] de Phone Number [facility] [place] [address] * (ABNORMAL) Comprehensive metabolic panel (05/31/2025 10:42 AM CDT) [facility] Sodium 134(L) 135 - 145 mmol/L Potassium, pl 4.5 3.3 - 4.9 mmol/L [facility] Chloride 91(L) 97 - 110 mmol/L [facility] CO2 37(H) 22 - 32 mmol/L [facility] Anion gap 6 2 - 15 mmol/L [facility] BUN 25 6 - 25 mg/dL [facility] Creatinine 0.54(L) 0.80 - 1.30 mg/dL [facility] Glucose 91 70 - 199 mg/dL [facility] Comment: Interpretive Data Fasting glucose >/= 126 [...] Calcium 8.7 8.5 - 10.3 mg/dL [facility] Bilirubin, total 0.4 0.1 - 1.2 mg/dL [facility] Protein, pl 6.2(L) 6.5 - 8.5 g/dL [facility] Albumin 3.4(L) 3.5 - 5.0 g/dL [facility] Alk phos 76 40 - 130 Units/L [facility] ALT 44 7 - 55 Units/L [facility] AST 40 10 - 50 Units/L [facility] Blood 05/31/2025 10:4 2 AM CDT 05/31/2025 10:51 AM CDT Cheng Franco MD LAB BLOOD ORDERABLES Cherrie l Result [facility] Department [place] [address] * POCT glucose (05/30/2025 12:29 PM CDT) Glucose, POC 115 70 - 199 mg/dL Blood 05/30/2025 12:2 9 PM CDT 05/30/2025 12:29 PM CDT Jerry Ray MD LAB POCT ORDERABLES - DEVICE F inal Result [facility] [place] [address] * Potassium, whole blood (05/30/2025 10:45 AM CDT) Potassium, bld 4.2 3.3 - 4.9 mmol/L Blood 05/30/2025 10:4 5 AM CDT 05/30/2025 10:54 AM CDT Jerry Ray MD LAB BLOOD ORDERABLES Final Res ult Performing Organization Address [facility] [[email or web address] de Phone Number [facility] [place] [address] * POCT glucose (05/30/2025 8:20 AM CDT) Glucose, POC 109 70 - 199 mg/dL Blood 05/30/2025 8:20 AM CDT 05/30/2025 8:20 AM CDT Jerry Ray MD LAB POCT ORDERABLES - DEVICE F inal Result Performing Organization Address [facility] de Phone Number [facility] [place] [address] * (ABNORMAL) Potassium, whole blood (05/29/2025 8:42 PM CDT) Potassium, bld 5.1(H) 3.3 - 4.9 mmol/L Blood 05/29/2025 8:42 PM CDT 05/29/2025 8:49 PM CDT us Ji Chambers MD LAB BLOOD ORDERABLES Final Resu lt Performing Organization Address [facility] [[email or web address]] de Phone Number [facility] [place] [address] * POCT glucose (05/29/2025 8:41 PM CDT) Glucose, POC 150 70 - 199 mg/dL Blood 05/29/2025 8:41 PM CDT 05/29/2025 8:41 PM CDT Jerry Ray MD LAB POCT ORDERABLES - DEVICE F inal Result Performing Organization Address [facility] Co de Phone Number [facility] [place] [address] * eGFR (05/29/2025 7:20 PM CDT) eGFR >90 >=60 mL/min/1. 73 [...] BLOOD ORDERABLES Final Result Performing Organization Address [facility] Co de Phone Number [facility] [place] [address] * (ABNORMAL) Differential, auto (05/29/2025 7:20 PM CDT) Neutrophil abs 14.27(H) 1.50 - 6.50 K/cumm Imm gran abs 0.07 0.00 - 0.10 K/cumm [facility] Lymphocyte abs 0.52(L) 0.80 - 3.30 K/cumm [facility] Monocyte abs 0.75 0.20 - 0.80 K/cumm [facility] Eosinophil abs 0.01 0.00 - 0.50 K/cumm [facility] Basophil abs 0.01 0.00 - 0.10 K/cumm [facility] Neutrophil pct 91.3 % [facility] Comment: Interpretive Data Percent cell count reference ranges are not reported, since discordance with absolute values may lead to misinterpretation of CBC data. Current Interpretive Data was last revised on 2017. Imm gran pct 0.4 % [facility] Comment: Interpretive Data Percent cell count reference ranges are not reported, since discordance with absolute values may lead to misinterpretation of CBC data. Current Interpretive Data was last revised on 2017. Lymphocyte pct 3.3 % [facility] Comment: Interpretive Data Percent cell count reference ranges are not reported, since discordance with absolute values may lead to misinterpretation of CBC data. Current Interpretive Data was last revised on 2017. Monocyte pct 4.8 % [facility] Comment: Interpretive Data Percent cell count reference ranges are not reported, since discordance with absolute values may lead to misinterpretation of CBC data. Current Interpretive Data was last revised on 2017. Eosinophil pct 0.1 % [facility] Comment: Interpretive Data Percent cell count reference ranges are not reported, since discordance with absolute values may lead to misinterpretation of CBC data. Current Interpretive Data was last revised on 2017. Basophil pct 0.1 % [facility] Comment: Interpretive Data Percent cell count reference ranges are not reported, since discordance with absolute values may lead to misinterpretation of CBC data. Current Interpretive Data was last revised on 2017. Blood 05/29/2025 7:20 PM CDT 05/29/2025 7:26 PM CDT us Kel Nunn MD PhD LAB BLOOD ORDERABLES Final Result [facility] Department [place] [address] * (ABNORMAL) CBC with auto differential (05/29/2025 7:20 PM CDT) WBC 15.63(H) 3.80 - 9.90 K/cumm Hgb 9.2(L) 13.0 - 17.5 g/dL [facility] Hct 28.2(L) 38.9 - 50.3 % [facility] Plt 314 150 - 400 K/cumm [facility] MPV 9.9 9.1 - 12.3 fL [facility] RBC 2.85(L) 4.30 - 5.80 M/cumm [facility] MCV 98.9(H) 81.3 - 96.4 fL [facility] MCH 32.3 27.1 - 33.3 pg [facility] MCHC 32.6 32.3 - 35.7 g/dL [facility] RDW CV 17.6(H) 11.1 - 14.9 % [facility] RDW SD 64.1(H) 35.7 - 48.1 fL [facility] NRBC abs 0.00 0.00 - 0.01 K/cumm [facility] Blood 05/29/2025 7:20 PM CDT 05/29/2025 7:26 PM CDT us Kel Nunn MD PhD LAB BLOOD ORDERABLES Final Result Performing Organization Address City/[facility]/ZIP Co de Phone Number [facility] Department [place] [address] * Uric acid (05/29/2025 7:20 PM CDT) [facility] Uric acid 3.4 3.0 - 8.0 mg/dL Blood 05/29/2025 7:20 PM CDT 05/29/2025 7:26 PM CDT Jerry Ray MD LAB BLOOD ORDERABLES Final Res ult Performing Organization Address [facility]/ZIP Co de Phone Number [facility] [place] [address] * Phosphorus (05/29/2025 7:20 PM CDT) Pathologist [facility] Phosphorus, pl 3.3 2.3 - 4.5 mg/dL Blood 05/29/2025 7:20 PM CDT 05/29/2025 7:26 PM CDT Kel Nunn MD PhD LAB BLOOD ORDERABLES Final Result [facility] [place] [address] * (ABNORMAL) Comprehensive metabolic panel (05/29/2025 7:20 PM CDT) Pathologist [facility] Sodium 140 135 - 145 mmol/L Potassium, pl 5.4(H) 3.3 - 4.9 mmol/L [facility] Comment: Hemolyzed; Potassium value may be falsely elevated by as much as 0.6-1.0 mmol/L. Suggest redraw and reanalysis. Repeated and Verified Chloride 95(L) 97 - 110 mmol/L [facility] CO2 40(H) 22 - 32 mmol/L [facility] Anion gap 5 2 - 15 mmol/L [facility] BUN 29(H) 6 - 25 mg/dL [facility] Creatinine 0.70(L) 0.80 - 1.30 mg/dL [facility] Glucose 134 70 - 199 mg/dL [facility] Comment: Interpretive Data Fasting glucose >/= 126 [...] 2022. Calcium 9.5 8.5 - 10.3 mg/dL [facility] Bilirubin, total 0.2 0.1 - 1.2 mg/dL [facility] Protein, pl 6.5 6.5 - 8.5 g/dL [facility] Albumin 3.2(L) 3.5 - 5.0 g/dL [facility] Alk phos 81 40 - 130 Units/L [facility] ALT 37 7 - 55 Units/L [facility] Comment:Reviewed AST 47 10 - 50 Units/L [facility] Comment: Hemolyzed; result may be falsely elevated Reviewed Blood 05/29/2025 7:20 PM CDT 05/29/2025 7:26 PM CDT Kel Nunn MD PhD LAB BLOOD ORDERABLES Final Result Performing Organization Address [facility] Co de Phone Number [facility] [place] [address] * POCT glucose (05/29/2025 5:22 PM CDT) Glucose, POC 171 70 - 199 mg/dL Blood 05/29/2025 5:22 PM CDT 05/29/2025 5:22 PM CDT Jerry Ray MD LAB POCT ORDERABLES - DEVICE F inal Result Performing Organization Address [facility] [[email or web address]] de Phone Number [facility] [place] [address] * POCT glucose (05/29/2025 11:03 AM CDT) Glucose, POC 186 70 - 199 mg/dL Blood 05/29/2025 11:0 3 AM CDT 05/29/2025 11:03 AM CDT Jerry Ray MD LAB POCT ORDERABLES - DEVICE F inal Result Performing Organization Address [facility] Co de Phone Number [facility] [place] [address] * POCT glucose (05/29/2025 7:37 AM CDT) Glucose, POC 134 70 - 199 mg/dL Blood 05/29/2025 7:37 AM CDT 05/29/2025 7:37 AM CDT Jerry Ray MD LAB POCT ORDERABLES - DEVICE F inal Result Performing Organization Address [facility] [[email or web address]] de Phone Number [facility] [place] [address] * Potassium, whole blood (05/28/2025 11:16 PM CDT) [facility] Potassium, bld 4.9 3.3 - 4.9 mmol/L Blood 05/28/2025 11:1 6 PM CDT 05/28/2025 11:24 PM CDT Jerry Ray MD LAB BLOOD ORDERABLES Final Res ult Performing Organization Address [facility] [[email or web address]] de Phone Number [facility] [place] [address] * POCT glucose (05/28/2025 8:24 PM CDT) Pathologist [facility] Glucose, POC 167 70 - 199 mg/dL Blood 05/28/2025 8:24 PM CDT 05/28/2025 8:24 PM CDT Jerry Ray MD LAB POCT ORDERABLES - DEVICE F inal Result Performing Organization Address [facility] [[email or web address]] de Phone Number [facility] [place] [address] * eGFR (05/28/2025 8:02 PM CDT) [facility] eGFR >90 >=60 mL/min/1. 73 m2 Comment: [...] MD PhD LAB BLOOD ORDERABLES Final Result [facility] [place] [address] * (ABNORMAL) Differential, auto (05/28/2025 8:02 PM CDT) Neutrophil abs 17.72(H) 1.50 - 6.50 K/cumm Imm gran abs 0.11(H) 0.00 - 0.10 K/cumm [facility] Lymphocyte abs 0.60(L) 0.80 - 3.30 K/cumm [facility] Monocyte abs 1.32(H) 0.20 - 0.80 K/cumm [facility] Eosinophil abs 0.00 0.00 - 0.50 K/cumm [facility] Basophil abs 0.02 0.00 - 0.10 K/cumm [facility] Neutrophil pct 89.6 % [facility] Comment: Interpretive Data Percent cell count reference ranges are not reported, since discordance with absolute values may lead to misinterpretation of CBC data. Current Interpretive Data was last revised on 2017. Imm gran pct 0.6 % [facility] Comment: Interpretive Data Percent cell count reference ranges are not reported, since discordance with absolute values may lead to misinterpretation of CBC data. Current Interpretive Data was last revised on 2017. Lymphocyte pct 3.0 % [facility] Comment: Interpretive Data Percent cell count reference ranges are not reported, since discordance with absolute values may lead to misinterpretation of CBC data. Current Interpretive Data was last revised on 2017. Monocyte pct 6.7 % [facility] Comment: Interpretive Data Percent cell count reference ranges are not reported, since discordance with absolute values may lead to misinterpretation of CBC data. Current Interpretive Data was last revised on 2017. Eosinophil pct 0.0 % [facility] Comment: Interpretive Data Percent cell count reference ranges are not reported, since discordance with absolute values may lead to misinterpretation of CBC data. Current Interpretive Data was last revised on 2017. Basophil pct 0.1 % [facility] Comment: Interpretive Data Percent cell count reference ranges are not reported, since discordance with absolute values may lead to misinterpretation of CBC data. Current Interpretive Data was last revised on 2017. Blood 05/28/2025 8:02 PM CDT 05/28/2025 8:21 PM CDT Kel Nunn MD PhD LAB BLOOD ORDERABLES Final Result [facility] [place] [address] * (ABNORMAL) CBC with auto differential (05/28/2025 8:02 PM CDT) WBC 19.77(H) 3.80 - 9.90 K/cumm Hgb 9.4(L) 13.0 - 17.5 g/dL [facility] Hct 29.1(L) 38.9 - 50.3 % [facility] Plt 342 150 - 400 K/cumm [facility] MPV 10.5 9.1 - 12.3 fL [facility] RBC 2.95(L) 4.30 - 5.80 M/cumm [facility] MCV 98.6(H) 81.3 - 96.4 fL [facility] MCH 31.9 27.1 - 33.3 pg [facility] MCHC 32.3 32.3 - 35.7 g/dL [facility] RDW CV 17.4(H) 11.1 - 14.9 % [facility] RDW SD 63.4(H) 35.7 - 48.1 fL [facility] NRBC abs 0.00 0.00 - 0.01 K/cumm [facility] Blood 05/28/2025 8:02 PM CDT 05/28/2025 8:21 PM CDT Kel Nunn MD PhD LAB BLOOD ORDERABLES Final Result Performing Organization Address City/[facility]/ZIP Co de Phone Number [facility] [place] [address] * Uric acid (05/28/2025 8:02 PM CDT) Uric acid 3.3 3.0 - 8.0 mg/dL Blood 05/28/2025 8:02 PM CDT 05/28/2025 8:21 PM CDT Jerry Ray MD LAB BLOOD ORDERABLES Final Res ult Performing Organization Address [facility] Co de Phone Number [facility] [place] [address] * Phosphorus (05/28/2025 8:02 PM CDT) Phosphorus, pl 3.2 2.3 - 4.5 mg/dL Comment:Hemolyzed; result ma y be falsely elevated Blood 05/28/2025 8:02 PM CDT 05/28/2025 8:21 PM CDT Kel Nunn MD PhD LAB BLOOD ORDERABLES Final Result Performing Organization Address City/[facility] Co de Phone Number [facility] Department [place] [address] * (ABNORMAL) Comprehensive metabolic panel (05/28/2025 8:02 PM CDT) Sodium 142 135 - 145 mmol/L Potassium, pl See Comment 3.3 - 4.9 mmol/L [facility] Comment:Credited; Hemolyzed Specimen Chloride 100 97 - 110 mmol/L [facility] CO2 35(H) 22 - 32 mmol/L [facility] Anion gap 7 2 - 15 mmol/L [facility] BUN 25 6 - 25 mg/dL [facility] Creatinine 0.62(L) 0.80 - 1.30 mg/dL [facility] Glucose 153 70 - 199 mg/dL [facility] Comment: Interpretive Data Fasting glucose >/= 126 [...] 2022. Calcium 9.3 8.5 - 10.3 mg/dL [facility] Bilirubin, total 0.2 0.1 - 1.2 mg/dL [facility] Protein, pl 6.9 6.5 - 8.5 g/dL [facility] Albumin 3.4(L) 3.5 - 5.0 g/dL [facility] Alk phos 83 40 - 130 Units/L [facility] Comment:Hemolyzed; result ma y be falsely decreased ALT See Comment 7 - 55 Units/L [facility] Comment:Credited; Hemolyzed Specimen AST See Comment 10 - 50 Units/L [facility] Comment:Credited; Hemolyzed Specimen Blood 05/28/2025 8:02 PM CDT 05/28/2025 8:21 PM CDT Kel Nunn MD PhD LAB BLOOD ORDERABLES Final Result Performing Organization Address [facility] Co de Phone Number [facility] [place] [address] * POCT glucose (05/28/2025 5:03 PM CDT) Glucose, POC 195 70 - 199 mg/dL Blood 05/28/2025 5:03 PM CDT 05/28/2025 5:03 PM CDT Jerry Ray MD LAB POCT ORDERABLES - DEVICE F inal Result Performing Organization Address [facility] de Phone Number [facility] [place] [address] * Potassium, whole blood (05/28/2025 2:22 PM CDT) Potassium, bld 4.9 3.3 - 4.9 mmol/L Blood 05/28/2025 2:22 PM CDT 05/28/2025 2:30 PM CDT Jerry Ray MD LAB BLOOD ORDERABLES Final Res ult Performing Organization Address [facility] Co de Phone Number [facility] [place] [address] * POCT glucose (05/28/2025 2:21 PM CDT) Glucose, POC 109 70 - 199 mg/dL Blood 05/28/2025 2:21 PM CDT 05/28/2025 2:21 PM CDT Jerry Ray MD LAB POCT ORDERABLES - DEVICE F inal Result Performing Organization Address [facility] Co de Phone Number [facility] [place] [address] * (ABNORMAL) POCT glucose (05/28/2025 12:16 PM CDT) Glucose, POC 212(H) 70 - 199 mg/dL Blood 05/28/2025 12:1 6 PM CDT 05/28/2025 12:16 PM CDT Jerry Ray MD LAB POCT ORDERABLES - DEVICE F inal Result Performing Organization Address [facility] [[email or web address]] de Phone Number [facility] [place] [address] * (ABNORMAL) POCT glucose (05/28/2025 11:03 AM CDT) Glucose, POC 234(H) 70 - 199 mg/dL Blood 05/28/2025 11:0 3 AM CDT 05/28/2025 11:03 AM CDT Jerry Ray MD LAB POCT ORDERABLES - DEVICE F inal Result Performing Organization Address [facility] [[email or web address]] de Phone Number [facility] [place] [address] * (ABNORMAL) POCT glucose (05/28/2025 9:50 AM CDT) Glucose, POC 314(H) 70 - 199 mg/dL Blood 05/28/2025 9:50 AM CDT 05/28/2025 9:50 AM CDT Jerry Ray MD LAB POCT ORDERABLES - DEVICE F inal Result Performing Organization Address [facility] [[email or web address]] de Phone Number [facility] [place] [address] * ECG 12 lead (05/28/2025 8:58 AM CDT) Ventricular Rate EKG/Min 102 BPM [facility] Atrial Rate 102 BPM [facility] [place]-Interval (MSEC) 124 ms [facility] QRS-Interval (MSEC) 94 ms [facility] QT-Interval (MSEC) 330 ms [facility] QTc 430 ms [facility] P [place] 83 degrees [facility] R [place] 70 degrees [facility] T [place] 74 degrees [facility] Diagnosis Sinus tachycardia Possible Left atrial enlargement Incomplete right bundle branch block Borderline ECG When compared with ECG of 22-APR-2025 22:37, No significant change was found Confirmed by NORA VILLA M.D (3) on 05/28/2025 3:03:35 PM [facility] 05/28/2025 8:58 AM CDT 05/28/2025 3:03 PM CDT Jerry Ray MD ECG ORDERABLES Final Result Performing Organization Address City/[facility]/ZIP Co de Phone Number [facility] * (ABNORMAL) Potassium, whole blood (05/28/2025 8:20 AM CDT) Potassium, bld 5.4(H) 3.3 - 4.9 mmol/L Blood 05/28/2025 8:20 AM CDT 05/28/2025 8:47 AM CDT us Jerry Ray MD LAB BLOOD ORDERABLES Final Res ult [facility] [place] [address] * eGFR (05/27/2025 11:17 PM CDT) eGFR [...] 7 PM CDT 05/27/2025 11:56 PM CDT us Kel Nunn MD PhD LAB BLOOD ORDERABLES Final Result [facility] [place] [address] * (ABNORMAL) Differential, auto (05/27/2025 11:17 PM CDT) Neutrophil abs 13.93(H) 1.50 - 6.50 K/cumm Imm gran abs 0.06 0.00 - 0.10 K/cumm [facility] Lymphocyte abs 0.25(L) 0.80 - 3.30 K/cumm [facility] Monocyte abs 0.12(L) 0.20 - 0.80 K/cumm [facility] Eosinophil abs 0.00 0.00 - 0.50 K/cumm [facility] Basophil abs 0.01 0.00 - 0.10 K/cumm [facility] Neutrophil pct 97.0 % [facility] Comment: Interpretive Data Percent cell count reference ranges are not reported, since discordance with absolute values may lead to misinterpretation of CBC data. Current Interpretive Data was last revised on 2017. Imm gran pct 0.4 % [facility] Comment: Interpretive Data Percent cell count reference ranges are not reported, since discordance with absolute values may lead to misinterpretation of CBC data. Current Interpretive Data was last revised on 2017. Lymphocyte pct 1.7 % [facility] Comment: Interpretive Data Percent cell count reference ranges are not reported, since discordance with absolute values may lead to misinterpretation of CBC data. Current Interpretive Data was last revised on 2017. Monocyte pct 0.8 % [facility] Comment: Interpretive Data Percent cell count reference ranges are not reported, since discordance with absolute values may lead to misinterpretation of CBC data. Current Interpretive Data was last revised on 2017. Eosinophil pct 0.0 % [facility] Comment: Interpretive Data Percent cell count reference ranges are not reported, since discordance with absolute values may lead to misinterpretation of CBC data. Current Interpretive Data was last revised on 2017. Basophil pct 0.1 % [facility] Comment: Interpretive Data Percent cell count reference ranges are not reported, since discordance with absolute values may lead to misinterpretation of CBC data. Current Interpretive Data was last revised on 2017. Blood 05/27/2025 11:1 7 PM CDT 05/27/2025 11:57 PM CDT Kel Nunn MD PhD LAB BLOOD ORDERABLES Final Result [facility] [place] [address] * (ABNORMAL) CBC with auto differential (05/27/2025 11:17 PM CDT) WBC 14.37(H) 3.80 - 9.90 K/cumm Hgb 8.3(L) 13.0 - 17.5 g/dL [facility] Hct 26.4(L) 38.9 - 50.3 % [facility] Plt 311 150 - 400 K/cumm [facility] MPV 10.0 9.1 - 12.3 fL [facility] RBC 2.65(L) 4.30 - 5.80 M/cumm [facility] MCV 99.6(H) 81.3 - 96.4 fL [facility] MCH 31.3 27.1 - 33.3 pg [facility] MCHC 31.4(L) 32.3 - 35.7 g/dL [facility] RDW CV 17.7(H) 11.1 - 14.9 % [facility] RDW SD 64.4(H) 35.7 - 48.1 fL [facility] NRBC abs 0.00 0.00 - 0.01 K/cumm [facility] Blood 05/27/2025 11:1 7 PM CDT 05/27/2025 11:57 PM CDT Kel Nunn MD PhD LAB BLOOD ORDERABLES Final Result [facility] [place] [address] * Phosphorus (05/27/2025 11:17 PM CDT) [facility] Phosphorus, pl 3.0 2.3 - 4.5 mg/dL Blood 05/27/2025 11:1 7 PM CDT 05/27/2025 11:56 PM CDT Kel Nunn MD PhD LAB BLOOD ORDERABLES Final Result Performing Organization Address City/[facility] [[email or web address]] de Phone Number [facility] [place] [address] * (ABNORMAL) Comprehensive metabolic panel (05/27/2025 11:17 PM CDT) [facility] Sodium 140 135 - 145 mmol/L Potassium, pl 5.3(H) 3.3 - 4.9 mmol/L [facility] Chloride 101 97 - 110 mmol/L [facility] CO2 34(H) 22 - 32 mmol/L [facility] Anion gap 5 2 - 15 mmol/L [facility] BUN 23 6 - 25 mg/dL [facility] Creatinine 0.75(L) 0.80 - 1.30 mg/dL [facility] Glucose 247(H) 70 - 199 mg/dL [facility] Comment: Interpretive Data Fasting glucose >/= 126 [...] 2022. Calcium 8.5 8.5 - 10.3 mg/dL [facility] Bilirubin, total 0.2 0.1 - 1.2 mg/dL [facility] Protein, pl 6.0(L) 6.5 - 8.5 g/dL [facility] Albumin 3.1(L) 3.5 - 5.0 g/dL [facility] Alk phos 83 40 - 130 Units/L [facility] ALT 28 7 - 55 Units/L [facility] AST 30 10 - 50 Units/L [facility] Blood 05/27/2025 11:1 7 PM CDT 05/27/2025 11:56 PM CDT us Kel Nunn MD PhD LAB BLOOD ORDERABLES Final Result [facility] [place] [address] * FL Modified Barium Swallow W Video [...] IMG FLUOROSCOPY PROCEDURES Fin al Result * APPLIANCE FIXER Evaluate and Treat (VFSS) (05/27/2025 10:10 AM [...] diet/thin liquid General Information Sim Carty 05/27/25 APPLIANCE FIXER Received On: 05/27/25 General Observations: [id number]. Pt alert, seated upright in fluoro chair [...] and is not ejected from the airway [place] Thickened Liquids: Laryngeal Penetration: None Aspiration Present: No Penetration Aspiration Scale-[place]: 1-Material does not enter airway Purees: Laryngeal [...] treatment goals and details, if indicated. Plan APPLIANCE FIXER Frequency of Services during current admission: Discharge from this Service APPLIANCE FIXER Recommendation (Add'l Services): No further APPLIANCE FIXER indicated Next Visit Plan: No further ST warranted Additional Referrals: none Discharge Summary Statement If this is the last swallow therapy visit, this serves as the discharge summary. Jerry Ray MD APPLIANCE FIXER ORDERABLES Final Result * APPLIANCE FIXER Evaluation and Treatment (05/27/2025 10:10 AM CDT) [...] diet/thin liquid General Information Sim Carty 05/27/25 APPLIANCE FIXER Received On: 05/27/25 General Observations: [id number]. Pt alert, seated upright in fluoro chair [...] and is not ejected from the airway [place] Thickened Liquids: Laryngeal Penetration: None Aspiration Present: No Penetration Aspiration Scale-[place]: 1-Material does not enter airway Purees: Laryngeal [...] treatment goals and details, if indicated. Plan APPLIANCE FIXER Frequency of Services during current admission: Discharge from this Service APPLIANCE FIXER Recommendation (Add'l Services): No further APPLIANCE FIXER indicated Next Visit Plan: No further ST warranted Additional Referrals: none Discharge Summary Statement If this is the last swallow therapy visit, this serves as the discharge summary. us Kel Nunn MD PhD APPLIANCE FIXER ORDERABLES Final Resul t * eGFR (05/26/2025 [...] 9 PM CDT 05/26/2025 11:47 PM CDT us Kel Nunn MD PhD LAB BLOOD ORDERABLES Final Result [facility] [place] [address] * (ABNORMAL) Differential, auto (05/26/2025 11:09 PM CDT) Neutrophil abs 18.38(H) 1.50 - 6.50 K/cumm Imm gran abs 0.15(H) 0.00 - 0.10 K/cumm [facility] Lymphocyte abs 0.94 0.80 - 3.30 K/cumm [facility] Monocyte abs 1.83(H) 0.20 - 0.80 K/cumm [facility] Eosinophil abs 0.05 0.00 - 0.50 K/cumm [facility] Basophil abs 0.04 0.00 - 0.10 K/cumm [facility] Neutrophil pct 85.9 % [facility] Comment: Interpretive Data Percent cell count reference ranges are not reported, since discordance with absolute values may lead to misinterpretation of CBC data. Current Interpretive Data was last revised on 2017. Imm gran pct 0.7 % [facility] Comment: Interpretive Data Percent cell count reference ranges are not reported, since discordance with absolute values may lead to misinterpretation of CBC data. Current Interpretive Data was last revised on 2017. Lymphocyte pct 4.4 % [facility] Comment: Interpretive Data Percent cell count reference ranges are not reported, since discordance with absolute values may lead to misinterpretation of CBC data. Current Interpretive Data was last revised on 2017. Monocyte pct 8.6 % [facility] Comment: Interpretive Data Percent cell count reference ranges are not reported, since discordance with absolute values may lead to misinterpretation of CBC data. Current Interpretive Data was last revised on 2017. Eosinophil pct 0.2 % [facility] Comment: Interpretive Data Percent cell count reference ranges are not reported, since discordance with absolute values may lead to misinterpretation of CBC data. Current Interpretive Data was last revised on 2017. Basophil pct 0.2 % [facility] Comment: Interpretive Data Percent cell count reference ranges are not reported, since discordance with absolute values may lead to misinterpretation of CBC data. Current Interpretive Data was last revised on 2017. Blood 05/26/2025 11:0 9 PM CDT 05/26/2025 11:47 PM CDT Kel Nunn MD PhD LAB BLOOD ORDERABLES Final Result [facility] [place] [address] * (ABNORMAL) CBC with auto differential (05/26/2025 11:09 PM CDT) WBC 21.39(H) 3.80 - 9.90 K/cumm Hgb 7.8(L) 13.0 - 17.5 g/dL [facility] Hct 24.0(L) 38.9 - 50.3 % [facility] Plt 319 150 - 400 K/cumm [facility] MPV 9.7 9.1 - 12.3 fL [facility] RBC 2.45(L) 4.30 - 5.80 M/cumm [facility] MCV 98.0(H) 81.3 - 96.4 fL [facility] MCH 31.8 27.1 - 33.3 pg [facility] MCHC 32.5 32.3 - 35.7 g/dL [facility] RDW CV 17.7(H) 11.1 - 14.9 % [facility] RDW SD 64.1(H) 35.7 - 48.1 fL [facility] NRBC abs 0.00 0.00 - 0.01 K/cumm [facility] Blood 05/26/2025 11:0 9 PM CDT 05/26/2025 11:47 PM CDT Kel Nunn MD PhD LAB BLOOD ORDERABLES Final Result Performing Organization Address [facility] Co de Phone Number [facility] [place] [address] * aPTT (05/26/2025 11:09 PM CDT) aPTT [...] BLOOD ORDERABLES Final Result Performing Organization Address [facility] [[email or web address]] de Phone Number [facility] [place] [address] * Protime-INR (05/26/2025 11:09 PM CDT) PT 12.2 10.2 - 13.5 sec INR 1.08 0.90 - 1.20 [facility] Comment: Interpretive data Oral anticoagulant therapeutic ranges: Venous thromboembolism prophylaxis or treatment: 2.0-3.0 CARDIOLOGY Standard range: 2.0-3.0 High-intensity range: 2.5-3.5 Refer to indication-specific guidelines for appropriate target ranges for prosthetic heart valve replacement. Current interpretive data was last revised on 2019. Blood 05/26/2025 11:0 9 PM CDT 05/26/2025 11:54 PM CDT Kel uNnn MD PhD LAB BLOOD ORDERABLES Final Result Performing Organization Address City/[facility] Co de Phone Number [facility] [place] [address] * Type and screen (05/26/2025 11:09 PM CDT) Pathologist [facility] ABO Rh A Positive Char, indirect Negative [facility] Blood 05/26/2025 11:0 9 PM CDT 05/26/2025 11:45 PM CDT Narrative [facility] - 05/27/2025 12:41 AM CDT Has the patient had Daratumumab or Isatuximab in the past 6 months?->Unknown Kel Nunn MD PhD LAB BLOOD BANK TEST ORDERAB LES Final Result Performing Organization Address [facility] Co de Phone Number [facility] [place] [address] * Uric acid (05/26/2025 11:09 PM CDT) [facility] Uric acid 4.2 3.0 - 8.0 mg/dL Blood 05/26/2025 11:0 9 PM CDT 05/26/2025 11:47 PM CDT Kel Nunn MD PhD LAB BLOOD ORDERABLES Final Result Performing Organization Address City/[facility] Co de Phone Number [facility] [place] [address] * Phosphorus (05/26/2025 11:09 PM CDT) [facility] Center Phosphorus, pl 2.6 2.3 - 4.5 mg/dL Blood 05/26/2025 11:0 9 PM CDT 05/26/2025 11:47 PM CDT Kel Nunn MD PhD LAB BLOOD ORDERABLES Final Result Performing Organization Address City/[facility]/ZIP Co de Phone Number [facility] [place] [address] * (ABNORMAL) Lactate dehydrogenase (LD) (05/26/2025 11:09 PM CDT) [facility] Lactate dehydrogenase (LDH) 328(H) 100 - 250 Units/L Blood 05/26/2025 11:0 9 PM CDT 05/26/2025 11:47 PM CDT Kel Nunn MD PhD LAB BLOOD ORDERABLES Final Result Performing Organization Address [facility] Co de Phone Number [facility] [place] [address] * (ABNORMAL) Comprehensive metabolic panel (05/26/2025 11:09 PM CDT) [facility] Sodium 137 135 - 145 mmol/L Potassium, pl 4.6 3.3 - 4.9 mmol/L [facility] Chloride 96(L) 97 - 110 mmol/L [facility] CO2 36(H) 22 - 32 mmol/L [facility] Anion gap 5 2 - 15 mmol/L [facility] BUN 29(H) 6 - 25 mg/dL [facility] Creatinine 0.76(L) 0.80 - 1.30 mg/dL [facility] Glucose 133 70 - 199 mg/dL [facility] Comment: Interpretive Data Fasting glucose >/= 126 [...] 2022. Calcium 8.5 8.5 - 10.3 mg/dL [facility] Bilirubin, total 0.2 0.1 - 1.2 mg/dL [facility] Protein, pl 5.7(L) 6.5 - 8.5 g/dL [facility] Albumin 3.0(L) 3.5 - 5.0 g/dL [facility] Alk phos 80 40 - 130 Units/L [facility] ALT 30 7 - 55 Units/L [facility] AST 26 10 - 50 Units/L [facility] Blood 05/26/2025 11:0 9 PM CDT 05/26/2025 11:47 PM CDT Kel Nunn MD PhD LAB BLOOD ORDERABLES Final Result [facility] Department [place] [address] * MRI Brain Tumor W WO Contrast [...] K/cumm Hgb 8.8(L) 13.0 - 17.5 g/dL [facility] Hct 27.6(L) 38.9 - 50.3 % [facility] Plt 386 150 - 400 K/cumm [facility] MPV 9.7 9.1 - 12.3 fL [facility] RBC 2.80(L) 4.30 - 5.80 M/cumm [facility] MCV 98.6(H) 81.3 - 96.4 fL [facility] MCH 31.4 27.1 - 33.3 pg [facility] MCHC 31.9(L) 32.3 - 35.7 g/dL [facility] RDW CV 17.5(H) 11.1 - 14.9 % [facility] RDW SD 63.1(H) 35.7 - 48.1 fL [facility] NRBC abs 0.00 0.00 - 0.01 K/cumm [facility] Blood 05/26/2025 12:0 8 PM CDT 05/26/2025 12:39 PM CDT Narrative [facility] - 05/26/2025 12:52 PM CDT Rechecking WBC us Jerry Ray MD LAB BLOOD ORDERABLES Final Res ult [facility] [place] [address] from Last 3 Months Insurance [facility]IC[facility]IC[facility] Address: [facility] [address] [place] [address] [facility] MEDICARE LIFE1 [facility] MEDIC[facility] Address: [address] [address] [place] [address] [facility] Advance Directives For more information, please contact: [phone] * LIMITED - No CPR (Latest Code [...] De fibrillation/Cardioversion Ventilation: No Intubation Care Teams Banquet Attendant Relationship Specialty Start Date End Date Carmen Artis [address] [place] [address] PCP - General Family Medicine 03/09/25 Cheng Franco MD [address] [place] [address] Medical Oncologist/Information Security Director Medical Oncology 04/05/25 Yuval Licona MD [address] [facility] [address] [place] [address] Referring Physician Thoracic Surgery 04/05/25
--- OUTSIDE RECORDS SUMMARY | 2025-08-25 16:30 | XMS_ITS ---
Author Organization [facility] Address [address] [place] [address] Care Team Providers Care Pulpwood Cutter Name Role Phone Virgil Beaulieu MD [...] chemotherapy treatment per oncology team at [facility] Primary cancer of left upper lobe of lung 2024 Cerebral infarction 01/19/2025 Overview (01/19/2025): Jul 23, 2024 Entered By: GIL LEWIS Comment: right sided weakness B12 deficiency 03/13/2021 Assessment & Plan (01/07/2024 3:09 PM CDT): Add B12 to today's labs Assessment & Plan (10/02/2022 4:26 PM DIRECTOR BIOLOGY): Add B12 to today's labs Assessment & Plan (03/21/2022 5:08 PM CDT): Add B12 level to today's labs B12 1cc IM today and repeat monthly Repeat level in three months. Assessment & Plan (03/13/2021 12:22 PM CDT): Add B12 level to today's labs B12 1cc IM today Elevated MCV 10/25/2020 Assessment & Plan (10/25/2020 2:40 PM DIRECTOR BIOLOGY): Add B12 level to today's labs Abdominal bruit 10/25/2020 Assessment & Plan (01/07/2024 3:08 PM CDT): Reviewed ultrasound from 2020 Repeat Abdominal ultrasound for assessment of abdominal aorta. Assessment & Plan (10/25/2020 2:49 PM DIRECTOR BIOLOGY): Abdominal ultrasound to assess aorta. Essential hypertension 09/24/2019 Assessment & Plan (01/07/2024 3:07 PM CDT): Continue to monitor Low sodium diet Assessment & Plan (04/23/2023 3:16 PM CDT): Continue low sodium diet and keep BP log for review. Assessment & Plan (10/02/2022 4:27 PM DIRECTOR BIOLOGY): Continue current regimen with diet and low sodium and keep BP log Assessment & Plan (03/22/2022 6:24 PM CDT): Continue current regimen blood pressure control and monitor clinically. Assessment & Plan (10/25/2020 2:43 PM DIRECTOR BIOLOGY): Hypertension is improving with treatment. Continue current [...] appointment. Assessment & Plan (09/24/2019 3:57 PM DIRECTOR BIOLOGY): Hypertension is worsening. Dietary sodium restriction. Stop smoking. Medication changes per orders. Blood pressure will be reassessed in 4 weeks. Add lisinopril 10mg daily BMP and BP check in two weeks with nursing staff On statin therapy 09/24/2019 Panlobular emphysema 11/18/2018 Assessment & Plan (06/02/2025 5:24 PM CDT): Continue DuoNeb treatments Continue Mucinex 1200mg BID Assessment & Plan (10/02/2022 4:31 PM DIRECTOR BIOLOGY): Schedule PFT at [facility] Encourage to stop smoking Continue current medications. Assessment & Plan (10/25/2020 2:40 PM DIRECTOR BIOLOGY): COPD is improving with treatment. Continue current medications. Assessment & Plan (09/24/2019 3:58 PM DIRECTOR BIOLOGY): COPD is improving with treatment. Medication changes [...] smoking Assessment & Plan (10/02/2022 4:25 PM DIRECTOR BIOLOGY): Encourage to stop smoking. Reviewed CT from April 13: IMPRESSION: No acute cardiopulmonary findings. Stable 1.2 cm right upper lobe pulmonary nodule on 0.4 cm left upper lobe pulmonary nodule. Emphysema. Atherosclerosis including coronary arteries. Recommend continued annual screening with low-dose CT in 12 months. Bilateral renal nonobstructing calculi. Assessment & Plan (10/25/2020 2:41 PM DIRECTOR BIOLOGY): Encourage to stop smoking. Assessment & Plan (04/21/2020 3:11 PM CDT): Stop smoking Assessment & Plan (09/24/2019 4:00 PM DIRECTOR BIOLOGY): Stop smoking Assessment & Plan (04/13/2019 1:42 [...] etiology. Assessment & Plan (10/02/2022 4:30 PM DIRECTOR BIOLOGY): Reviewed recent CT Continue to monitor Assessment & Plan (03/22/2022 6:24 PM CDT): Repeat imaging as scheduled. Assessment & Plan (04/21/2020 3:09 PM CDT): Schedule CT chest, non-contrast, lung protocol for follow up of nodule. Assessment & Plan (09/24/2019 4:00 PM DIRECTOR BIOLOGY): Schedule CT of lung, non-contrast Assessment & Plan (03/17/2019 11:59 AM CDT): Request recommendations from Dr. Ayala (Pulmonary at [facility]). Mixed hyperlipidemia 11/18/2018 Assessment & Plan (01/07/2024 3:09 PM CDT): Resume atorvastatin Repeat lipids in 6 months Assessment & Plan (10/02/2022 4:26 PM DIRECTOR BIOLOGY): Continue atorvastatin Repeat labs in 6 months Assessment & Plan (10/25/2020 2:40 PM DIRECTOR BIOLOGY): Lipid abnormalities are improving with treatment. Pharmacotherapy as ordered. Lipids will be reassessed in 6 months. Assessment & Plan (04/21/2020 3:11 PM CDT): Lipid abnormalities are improving with treatment. Pharmacotherapy as ordered. Lipids will be reassessed in 6 months. Assessment & Plan (09/24/2019 4:00 PM DIRECTOR BIOLOGY): Lipid abnormalities are improving with treatment. Pharmacotherapy [...] aspirin. Assessment & Plan (10/25/2020 2:44 PM DIRECTOR BIOLOGY): Schedule bilateral carotid doppler Assessment & Plan [...] CTA carotids. Referral to Dr. Bazan at [facility] History of right common carotid artery [...] needed Assessment & Plan (10/02/2022 4:26 PM DIRECTOR BIOLOGY): GERD precautions and acid reduction as needed Assessment & Plan (03/22/2022 6:24 PM CDT): Reflux precautions and acid reduction [id number] as needed Assessment & Plan (10/25/2020 2:42 PM DIRECTOR BIOLOGY): GERD precautions and acid reduction with famotidine [...] medications Assessment & Plan (10/02/2022 4:31 PM DIRECTOR BIOLOGY): Continue tamsulosin PSA trended downward Urology follow up if needed. Assessment & Plan (03/22/2022 6:24 PM CDT): NEIL and PSA on follow-up Assessment & Plan (10/25/2020 2:42 PM DIRECTOR BIOLOGY): Continue to monitor symptoms. Discussed alpha chary [...] BP Assessment & Plan (10/02/2022 4:30 PM DIRECTOR BIOLOGY): Continue clopidogrel Monitor clinically Control BP Control lipids. Stop smoking Assessment & Plan (03/22/2022 6:23 PM CDT): Currently asymptomatic. No significant neurologic sequelae. Will continue on low-dose aspirin. Encouraged to stop smoking. Control blood pressure. Assessment & Plan (09/24/2019 3:59 PM DIRECTOR BIOLOGY): Continue clopidogrel Monitor clinically Stop smoking COPD [...] possible with Dr. Aguirre or with at [facility]. Assessment & Plan (04/23/2023 3:15 PM CDT): Plan repeat colonoscopy in 2023 Assessment & Plan (10/02/2022 4:24 PM DIRECTOR BIOLOGY): Adenomatous polyp in 11/2018. Plan repeat in 2023. Continue to monitor Assessment & Plan (10/25/2020 2:49 PM DIRECTOR BIOLOGY): Reviewed Colonoscopy and plan repeat in 2021. [...]
--- OUTSIDE RECORDS SUMMARY | 2025-08-25 16:30 | XMS_ITS | Clinical Summary ---
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 (current) drug therapy Panlobular emphysema 11/18/2018 Encounters Date Type Department Care Team Description 08/10/2025 External Device Data [facility] ABSTRACTION Provider, Abstract 08/10/2025 External Device Data [facility] ABSTRACTION Provider, Abstract 06/15/2025 External Device Data [facility]STRACTION Provider, [...] VACCINE 50+ YEARS Completed 10/02/2022 , 11/18/2018 Insurance [facility] [id number] [facility] Address: [facility] [address] [place] [address] RX [employer] RX Member Subscriber Plan / Payer (Ef fective 2022-Present) Name:Sim Carty Relation to Subscriber:Self Name:Sim Carty Payer ID:Not on file Group ID:[id number] Type:RX Medicare Part D Address: [place] RX [employer] PLANS (INTERNAL) [facility] RX [facility] [employer] * Guarantor: [facility] B (C) Account Type Relation to Patient Date of Phone Billing Address Corporate Other DEFAULT ADDRESS [place] [address] [place] [employer] [employer] Advance Directives For more information, please contact: [phone] * NO CPR (In Event of Cardiopulmonary Arrest) (Latest Code Status on File) Date Activated Date Inactivated Comments 05/11/2025 4:44 PM 05/13/2025 5:18 PM Question Answer Comments Mechanical Ventilation (for respiratory distress) - Invasive (i.e. intubation): No Mechanical Ventilation (for respiratory distress) - Non-Invasive (i.e. BiPAP, CPAP): Yes Care Teams Fire Protection Engineer Relationship Specialty Start Date End Date Virgil Beaulieu MD [address] [facility] [place] [address] PCP - General Internal Medicine 05/11/25
--- OUTSIDE RECORDS SUMMARY | 2025-08-25 16:30 | XMS_ITS | Encounter Summary ---
Author Organization [facility] Address [address] [place] [address] Care Team Providers Care Optical Laboratory Manager Name Role Phone Virgil Beaulieu MD Primary Care Provider [phone] Encounter Details Date Type Department Care Team (Late Contact Info) Description 03/20/2019 Orders Only [facility] [address] [place] [address] System, Provider Not In, [address] [place] [place] [address] Social History Tobacco Use Types Packs/Day Years [...] st Contact Info) Description 11/08/2025 9:45 AM SUPERVISOR REINFORCED STEEL PLACING Office Visit [facility] [place] - Primary Care [address] [place] [address] Virgil Beaulieu MD [address] [place] [address] documented as of this encounter Procedures Procedure [...] documented as of this encounter Care Teams Optical Laboratory Manager Relationship Specialty Start Date End Date Virgil Beaulieu MD [address] [place] [address] PCP - General Internal Medicine 07/31/18 documented as of this encounter
--- OUTSIDE RECORDS SUMMARY | 2025-08-25 16:30 | XMS_ITS | Encounter Summary ---
Author Organization [facility] Address [address] [place] [address] Care Team Providers Care Differential Repairer Name Role Phone Virgil Beaulieu MD Primary Care Provider [phone] Encounter Details Date Type Department Care Team (Late st Contact Info) Description 05/13/2025 Telephone [facility] [place] - Primary Care [address] [place] [address] Lynn Samayoa, PROTECTIVE SIGNAL REPAIRER Social History Tobacco Use Types Packs/Day Years Used Date Smoking Tobacco: Every Day Cigarettes Smokeless Tobacco: Never Alcohol Use Standard Drinks/Week Comments Yes 1 (1 standard drink = 0.6 oz pur e alcohol) per day [facility] Utilities Answer Date Recorded In the past 12 months has e [employer], gas, oil, or water [employer] threatened to shut off services in your [...] any time in the past 12 m [facility], were you homeless or living in a fpc (including now)? No 03/25/2025 Sex and Gender Information Value Date Recorded Sex Assigned at Not on file Legal Sex Male 12:56 PM CDT Gender Identity Not on file Sexual Orientation Not on file documented as of this encounter Miscellaneous Notes * Telephone Encounter - Sonam Soto - 05/14/2025 8:50 AM CDT Talked to patients son, Will be getting a call back soon from Emily. * Telephone Encounter - Lynn Samayoa LPN - 05/13/2025 4:02 PM CDT Patient was discharged from [facility] today, 05/13/2025, dx pneumonia. He is scheduled for a follow up with Carmen Artis on Saturday05/19/2025. Call and check on patient in 24-48 hours after discharge. documented in this encounter Plan of Treatment Upcoming Encounters Date Type Department Care Team (Late st Contact Info) Description 11/08/2025 9:45 AM DRAFTING CLERK Office Visit [facility] [place] - Primary Care [address] [place] [address] Virgil Beaulieu MD [address] [place] [address] documented as of this encounter Visit Diagnoses Not on filedocumented in this encounter Additional Health Concerns Health Status Noted Date Alive and well 07/02/2024 Assessment Noted Time PHQ-9 Depression Total Score: 0 11/19/19 25 12:46 PM DRAFTING CLERK A fall risk assessment has been complete d for the patient 03/25/2025 4:03 PM CDT documented as of this encounter Care Teams Differential Repairer Relationship Specialty Start Date End Date Virgil Beaulieu MD [address] [place] [id number] PCP - General Internal Medicine 07/31/18 documented as of this encounter
[2025-08-25 17:14] LABS: Hematocrit 31.2 % (37-53); Hemoglobin 9.60 g/dL (11.27-16.99); Mean Corpuscular HGB Conc 30.8 g/dL (30-55); Mean Corpuscular Hemoglobin 32.7 pg (27-33); Mean Corpuscular Volume 106.1 fl (82-101); Nucleated Red Blood Cells % 0 %; Platelet Count 409 10^3/cmm (157-399); Red Blood Count 2.94 10^6/uL (3.85-5.65); White Blood Count 13.44 10^3/uL (3.29-11.43)
[2025-08-25 17:36] LABS: Alanine Aminotransferase 132 U/L (0-41); Albumin Level 3.5 g/dL (3.5-5.2); Alkaline Phosphatase 442 U/L (40-130); Anion Gap 11.7 (5-19); Aspartate Amino Transferase 162 U/L (0-40); Blood Urea Nitrogen 29 mg/dL (8-23); Calcium 9.9 mg/dL (8.5-10.5); Carbon Dioxide 39 mmol/L (22-29); Chloride 97 mmol/L (98-107); Creatinine Clr Calc Pharmacy 54.5727; Globulin 2.9 g/dL (1.3-4.6); Glucose 123 mg/dL (65-115); Osmolality Calculated 303 mOsm/kg (285-295); Potassium 4.7 mmol/L (3.5-5.1); Sodium 143 mmol/L (136-145); Total Protein 6.4 g/dL (6.6-8.7)
[2025-08-25 18:26] VITALS: BP 131/74; PULSE 98; O2SAT 97
[2025-08-25] MEDS: ondansetron 2 mg/ML SDV 2 mL 4 MG IVP (18:33)
[2025-08-25] MEDS: morphine 4 mg/mL SDV 1 mL IVP (18:36)
[2025-08-25 18:53] LABS: Glucose Urine UA Negative (Normal); Nitrate Urine Negative (Negative); Specific Gravity, Urine 1.024 (1.005-1.030)
[2025-08-25 19:07] LABS: Add Urine Microscopic? YES; UA Manual Slide Review YES
--- NOTE | 2025-08-25 19:11 | PC.NURSE ---
shift report given to mona kelly RN. nurse does not have pin for worklist handoff
[2025-08-25] MEDS: HYDROmorphone 0.5 MG/0.5 ML INJ IVP (19:20)
[2025-08-25 20:12] VITALS: BP 120/64; PULSE 99; O2SAT 100
[2025-08-25] MEDS: LORazepam 2 mg/mL INJ 1 mL 1 MG IVP (20:13)
--- NOTE | 2025-08-25 20:43 | PC.NURSE ---
This nurse and pharmacist electrical instrumentation technician prepped medication Roxanol and oral Ativan to send home with patient, with prescription sticker and instructions. Pharmacist also went into Room 5 and educated family on administration directions. Primary nurse Donna RAUSCH notified.
[2025-08-25] MEDS: morphine 10 mg/0.5 mL oral liq UD 60 MG PO (20:54)
[2025-08-25] MEDS: LORazepam 2 mg/mL oral liquid (mL) PO (20:54)
[2025-08-25 20:59] VITALS: BP 120/64; PULSE 104; O2SAT 99
== END 2025-08-25 21:03 | disposition home or self-care (01) ==
PROVIDERS: Emergency Provider Family Medicine; PCP Internal Medicine
DX: J44.9 Chronic obstructive pulmonary disease, unspecified (principal); E43 Unspecified severe protein-calorie malnutrition; Z85.118 Personal history of other malignant neoplasm of bronchus and lung; Z87.891 Personal history of nicotine dependence; Z79.02 Long term (current) use of antithrombotics/antiplatelets; Z99.81 Dependence on supplemental oxygen
CPT/HCPCS: 36415; 80053; 81001; 85025; 87086; 96374; 96375; 99284; J1171; J2060; J2270; J2405; J9999